=== PATIENT | male | born 1980 | race African-American/Black ===

== ENCOUNTER 2016-06-11 11:53 | Emergency (ER) | payer MEDICARE, MEDICAID ==
[~2016-06-11 11:53] MED LIST: AMLO1TAB12 PO; BUPR100T6 PO; HALO2TAB PO; OMEP40CA2 PO
[2016-06-11 13:12] VITALS: BP 136/74
--- NOTE | 2016-06-11 13:21 | PHYS DOC ---
Past Medical History Past Medical History: Depression, GERD, Hypertension, Schizophrenia, Other Additional Past Medical Histor: Psychosis Past Surgical History: No Surgical History Alcohol Use: Occasionally Drug Use: Marijuana Adult General Chief Complaint Chief Complaint: LOWER EXTREMITY SWELLING HPI HPI Patient is a 36 year old male with past medical history depression, GERD, hypertension, schizophrenia who presents with or shortly swelling over the last several weeks. He states had this to 3 times a 4 and was given a water pill and a result. He states his medications been changed and now his leg is swollen worse. He also complains about some dyspnea on exertion when he relates greater than 20 feet, or goes up a flight of steps.. He denies any chest pain, orthopnea or PND Review of Systems Review of Systems Constitutional: Denies fever or chills [] Eyes: Denies change in visual acuity, redness, or eye pain [] HENT: Denies nasal congestion or sore throat [] Respiratory: Denies cough or shortness of breath [] Cardiovascular: No additional information not addressed in HPI [] GI: Denies abdominal pain, nausea, vomiting, bloody stools or diarrhea [] : Denies dysuria or hematuria [] Musculoskeletal: Denies back pain or joint pain [] Integument: Denies rash or skin lesions [] Neurologic: Denies headache, focal weakness or sensory changes [] Endocrine: Denies polyuria or polydipsia [] Allergies Allergies Allergies Coded Allergies Type Severity Reaction Last Updated Verified NSAIDS (Non-Steroidal Anti-Inflamma Allergy Mild "told not to take" for GI concerns 09/23/13 Yes shellfish derived Allergy Unknown 08/14/14 No Physical Exam Physical Exam Constitutional: Well developed, morbidly obese, no acute distress, non-toxic appearance. [] HENT: Normocephalic, atraumatic, bilateral external ears normal, oropharynx moist, no oral exudates, nose normal. [] Eyes: PERRLA, EOMI, conjunctiva normal, no discharge. [] Neck: Normal range of motion, no tenderness, supple, no stridor. [] Cardiovascular:Heart rate regular rhythm, no murmur [] Lungs & Thorax: Bilateral breath sounds clear to auscultation [] Abdomen: Bowel sounds normal, soft, no tenderness, no masses, no pulsatile masses. [] Skin: Warm, dry, no erythema, no rash. [] Back: No tenderness, no CVA tenderness. [] Extremities: No tenderness, no cyanosis, no clubbing, ROM intact, and plus bilateral lower extremity edema.. [] Neurologic: Alert and oriented X 3, normal motor function, normal sensory function, no focal deficits noted. [] Psychologic: Affect normal, judgement normal, mood normal. [] Current Patient Data Vital Signs Vital Signs Date Time Temp Pulse Resp B/P Pulse Ox O2 Delivery O2 Flow Rate FiO2 06/11/16 13:12 99.1 108 24 136/74 96 Room Air 99.1 Lab Values Laboratory Tests Test 06/11/16 13:55 06/11/16 14:35 White Blood Count 11.9x10^3/uL (4.0-11.0) H Red Blood Count 3.32x10^6/uL (4.30-5.70) L Hemoglobin 11.0g/dL (13.0-17.5) L Hematocrit 32.2% (39.0-53.0) L Mean Corpuscular Volume 97fL (79-100) Mean Corpuscular Hemoglobin 33pg (25-35) Mean Corpuscular Hemoglobin Concent 34g/dL (31-37) Red Cell Distribution Width 15.5% (11.5-14.5) H Platelet Count 137x10^3/uL (140-400) L Neutrophils (%) (Auto) 71% (31-73) Lymphocytes (%) (Auto) 11% (24-48) L Monocytes (%) (Auto) 16% (0-9) H Eosinophils (%) (Auto) 1% (0-3) Basophils (%) (Auto) 1% (0-3) Neutrophils # (Auto) 8.4x10^3uL (1.8-7.7) H Lymphocytes # (Auto) 1.3x10^3/uL (1.0-4.8) Monocytes # (Auto) 1.9x10^3/uL (0.0-1.1) H Eosinophils # (Auto) 0.1x10^3/uL (0.0-0.7) Basophils # (Auto) 0.1x10^3/uL (0.0-0.2) Prothrombin Time 29.5SEC (11.7-14.0) H Prothrombin Time INR 3.0 (0.8-1.1) H D-Dimer (Denia) 0.74ug/mlFEU (0.00-0.50) H Troponin I Quantitative < 0.017ng/mL (0.000-0.055) Laboratory Tests 06/11/16 13:55 EKG EKG EKG shows normal sinus rhythm with a rate of 100, no ST elevations or T-wave inversions appreciated, normal axis, as interpreted by me. Radiology/Procedures Radiology/Procedures [facility] [address] [place] [address] IMAGING REPORT Signed PATIENT: TEO BIGGS ACCOUNT: [id number] : 1980 LOCATION: ER AGE: 36 SEX: M EXAM STATUS: REG ER ORD. PHYSICIAN: AMANDA VALENTE MD REASON: SOA PROCEDURE: PORTABLE CHEST 1V Indication shortness of air. A single view of the chest was obtained. Comparison is made to an examination 02/28/2015. Heart size is at the upper limits of normal. There is no gross congestive heart failure. There is no consolidated pneumonia. Significant pleural fluid is not seen. There is no pneumothorax. The bony structures appear grossly intact. IMPRESSION: No acute process is apparent in the chest. DICTATED and SIGNED BY: AGNIESZKA GARCIA MD DATE: 06/11/16 1424 CC: AMANDA VALENTE MD; ABIGAIL STERLING ~ Impressions: Lower extremity swelling Dyspnea on exertion Course & Med Decision Making Course & Med Decision Making Pertinent Labs and Imaging studies reviewed. (See chart for details) Patient was evaluated and has labs pending at this time. EKG chest x-ray nonacute. Patient is being checked out to Dr. Lee for final disposition. Dragon Disclaimer Dragon Disclaimer This electronic medical record was generated, in whole or in part, using a voice recognition dictation system. Departure Departure Referrals: ABIGAIL STERLING (PCP) AMANDA VALENTE MD Jun 11, 2016 13:21
[2016-06-11 14:09] LABS: BASO # 0.1 x10^3/uL (0.0-0.2); BASO % 1 % (0-3); EOS % 1 % (0-3); HEMATOCRIT 32.2 % (39.0-53.0); LYMPH # 1.3 x10^3/uL (1.0-4.8); LYMPH % 11 % (24-48); MEAN CORPUSCULAR HEMOGLOBIN 33 pg (25-35); MEAN CORPUSCULAR HGB CONC 34 g/dL (31-37); MEAN CORPUSCULAR VOLUME 97 fL (79-100); MONO % 16 % (0-9); NEUT % 71 % (31-73); PLATELET COUNT 137 x10^3/uL (140-400); RED BLOOD COUNT 3.32 x10^6/uL (4.30-5.70); RED CELL DISTRIBUTION WIDTH 15.5 % (11.5-14.5); WHITE BLOOD COUNT 11.9 x10^3/uL (4.0-11.0)
--- NOTE | 2016-06-11 14:28 | RAD ---
Indication shortness of air. A single view of the chest was obtained. Comparison is made to an examination 02/28/2015. Heart size is at the upper limits of normal. There is no gross congestive heart failure. There is no consolidated pneumonia. Significant pleural fluid is not seen. There is no pneumothorax. The bony structures appear grossly intact. IMPRESSION: No acute process is apparent in the chest.
[2016-06-11 15:01] LABS: PROTHROMBIN TIME PATIENT 29.5 SEC (11.7-14.0)
[2016-06-11 15:11] LABS: CKMB INDEX 0.6 % (0-4); CKMB MASS 3.5 ng/mL (0.0-3.6)
[2016-06-11 15:31] LABS: CALCIUM 9.4 mg/dL (8.5-10.1); GFR 101.2; POTASSIUM 4.1 mmol/L (3.5-5.1)
[2016-06-11 15:35] LABS: MAGNESIUM 1.7 mg/dL (1.8-2.4); TOTAL BILIRUBIN 1.6 mg/dL (0.2-1.0); TOTAL PROTEIN 8.7 g/dL (6.4-8.2)
[2016-06-11] MEDS ORDERED: IOHEXOL 300 MG/ML 75 ML VIAL IV ONE (16:00)
[2016-06-11] MEDS ORDERED: CONTRAST GIVEN MC PRN (16:00)
--- NOTE | 2016-06-11 16:01 | EKG ---
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
--- NOTE | 2016-06-11 16:52 | RAD ---
Right leg venous Doppler study: Clinical indications: Right leg swelling and pain. Elevated d-dimer. Findings: Duplex sonography (including bose scale evaluation and color flow and waveform spectral analysis) of the proximal aspect of the greater saphenous vein and proximal aspect of the profunda femoral vein and the entire length of the common femoral and superficial femoral and popliteal veins and the tibioperoneal trunk and the proximal aspect of the posterior tibial and peroneal veins of the right leg was performed. Normal compressibility, augmentation of color Doppler flow after calf compression, and respiratory variation of Doppler flow is seen. Thus, there are no sonographic findings of deep venous thrombosis within these veins. Impression: There are no sonographic findings of deep venous thrombosis within the veins discussed above of the right lower extremity. Left leg venous Doppler study: Clinical indications: Left leg swelling and pain. Elevated d-dimer. Findings: Duplex sonography (including bose scale evaluation and color flow and waveform spectral analysis) of the proximal aspect of the greater saphenous vein and the proximal aspect of the profunda femoral vein and the entire length of the common femoral and superficial femoral and popliteal veins and the tibioperoneal trunk and the proximal aspect of the posterior tibial and peroneal veins of the left leg was performed. Normal compressibility, augmentation of color Doppler flow after calf compression, and respiratory variation of Doppler flow is seen. Thus, there are no sonographic findings of deep venous thrombosis within these veins. Impression: There are no sonographic findings of deep venous thrombosis within the veins discussed above of the left lower extremity.
--- NOTE | 2016-06-11 17:54 | RAD ---
PROCEDURE CT angiogram of the chest intravenous contrast. HISTORY Shortness of air in elevated D-dimer. Lower extremity swelling. COMPARISON None. TECHNIQUE After administration of intravenous contrast, 75 mL Omnipaque 300 , CT pulmonary angiogram was performed. Axial 2D reconstructions were obtained. Coronal 3D MIPS were obtained. Exposure: One or more of the following individualized dose reduction techniques were utilized for this examination: 1. Automated exposure control. 2. Adjustment of the mA and/or kV according to patient size. 3. Use of iterative reconstruction technique. FINDINGS There is examination is nondiagnostic for detection of pulmonary embolism as there is essentially no opacification of the pulmonary arteries. There is essentially no opacification of the thoracic aorta; consequently, evaluation for aortic dissection is limited. No pneumothorax or pleural effusion is seen. No acute airspace disease is identified. Heart and pericardium are unremarkable. Trachea and mainstem bronchi appear patent. Small hiatal hernia is seen. Fatty liver disease is present. IMPRESSION 1. Examination is nondiagnostic for evaluation of pulmonary embolism. 2. No acute abnormality identified in the chest. Electronically signed by: Leonel Ramachandran MD (Jun 11, 2016 17:53:03)
[2016-06-11] MEDS ORDERED: MAGN400T3 PO (18:21)
[2016-06-11] MEDS ORDERED: FURO-69 PO (18:21)
== END 2016-06-11 18:38 | disposition left against medical advice (07) ==
LOC: ER 11:53
DX: M79.89 Other specified soft tissue disorders (principal); I10 Essential (primary) hypertension; F12.10 Cannabis abuse, uncomplicated; Z88.6 Allergy status to analgesic agent; Z91.013 Allergy to seafood
CPT/HCPCS: 36415; 71010; 71275; 80048; 80076; 82553; 83735; 83880; 84443; 84484; 85027; 85379; 85610; 93005; 93970; 99285; Q9967

== ENCOUNTER 2016-08-24 11:22 | Inpatient (IN) | payer MEDICARE, MEDICAID ==
[~2016-08-24] VITALS: Ht 177.8 cm; Wt 186.4 kg
[~2016-08-24 11:22] MED LIST changes: +FURO-69 PO; +MAGN400T3 PO
[2016-08-24] MEDS ORDERED: IPRATRPIUM/ALBUTEROL 0.5/2.5MG 3 ML NEBU. ONE (13:06)
[2016-08-24] MEDS ORDERED: ALBUTEROL SULFATE 2.5 MG/3 ML NEBU. ONE (13:06)
[2016-08-24 13:14] LABS: BASO # 0.2 x10^3/uL (0.0-0.2); BASO % 1 % (0-3); EOS % 3 % (0-3); HEMATOCRIT 24.8 % (39.0-53.0); LYMPH # 1.5 x10^3/uL (1.0-4.8); LYMPH % 10 % (24-48); MEAN CORPUSCULAR HEMOGLOBIN 32 pg (25-35); MEAN CORPUSCULAR HGB CONC 32 g/dL (31-37); MEAN CORPUSCULAR VOLUME 100 fL (79-100); MONO % 14 % (0-9); NEUT % 71 % (31-73); PLATELET COUNT 229 x10^3/uL (140-400); RED BLOOD COUNT 2.49 x10^6/uL (4.30-5.70); RED CELL DISTRIBUTION WIDTH 16.6 % (11.5-14.5); WHITE BLOOD COUNT 14.3 x10^3/uL (4.0-11.0)
--- NOTE | 2016-08-24 13:17 | RAD ---
Portable chest, 08/24/2016: History: Cough, shortness of breath Comparison is made to a study from 06/11/2016. The heart is at the upper limits of normal in size. There is minimal streaky atelectasis/infiltrate in the left suprahilar region. The lungs are otherwise clear. There is no evidence of pleural fluid. IMPRESSION: Minimal streaky left suprahilar atelectasis/infiltrate.
[2016-08-24 13:24] LABS: CALCIUM 8.8 mg/dL (8.5-10.1); CREATININE 1.8 mg/dL (0.7-1.3); GFR 51.4; POTASSIUM 4.1 mmol/L (3.5-5.1)
[2016-08-24] MEDS ORDERED: IPRATRPIUM/ALBUTEROL 0.5/2.5MG 3 ML NEBU. NEB ONE (13:30)
[2016-08-24 13:32] LABS: ALBUMIN 2.2 g/dL (3.4-5.0); ALBUMIN/GLOBULIN RATIO 0.4 (1.0-1.7); TOTAL BILIRUBIN 1.9 mg/dL (0.2-1.0); TOTAL PROTEIN 8.2 g/dL (6.4-8.2)
[2016-08-24 13:36] LABS: OBC FLU VALID
[2016-08-24 13:40] LABS: CKMB INDEX 1.4 % (0-4); CKMB MASS 2.4 ng/mL (0.0-3.6)
[2016-08-24 13:48] LABS: NEG OBC FOB NEG; POS OBC FOB POS
--- NOTE | 2016-08-24 14:43 | EKG ---
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
[2016-08-24] MEDS ORDERED: LEVOFLOXACIN PER PHARMACY MC PRN (15:30)
[2016-08-24] MEDS ORDERED: ONDANSETRON PF 4 MG/2 ML VIAL. IV PRN (15:30)
[2016-08-24] MEDS ORDERED: FENTANYL PF 100 MCG/2 ML VIAL. IV PRN (15:30)
--- NOTE | 2016-08-24 15:34 | PHYS DOC ---
Past Medical History Past Medical History: Depression, GERD, High Cholesterol, Hypertension, Schizophrenia, Other Additional Past Medical Histor: Psychosis Past Surgical History: No Surgical History Additional Information: 1 PACK A DAY Alcohol Use: Heavy Additional Information: DAILY ETOH, 6 PACK A DAY Drug Use: Marijuana Adult General Chief Complaint Chief Complaint: SHORTNESS OF BREATH HPI HPI Patient is a 36 year old female who presents with complaint of shortness of breath. Patient states his symptoms have been worsening over the past 2-3 days. Patient states he is having worsening dyspnea on exertion and has been having dry cough. Patient denies any fevers. Patient states that he has not been having any chest pain or abdominal pain. Patient does admit to worsening swelling in the lower extremities and along his belly. The patient also states that he has been having blood present in his stools. Patient states that the blood is present when he cleans himself after having a bowel movement. Patient denies any known history of peptic ulcer disease. Patient has not taken any medications to help with his symptoms. Review of Systems Review of Systems Constitutional: Denies fever or chills [] Eyes: Denies change in visual acuity, redness, or eye pain [] HENT: Denies nasal congestion or sore throat [] Respiratory: Shortness breath, cough [] Cardiovascular: Edema, denies chest pain [] GI: Place stools, denies abdominal pain, nausea, vomiting, or diarrhea [] : Denies dysuria or hematuria [] Musculoskeletal: Denies back pain or joint pain [] Integument: Denies rash or skin lesions [] Neurologic: Denies headache, focal weakness or sensory changes [] Current Medications Current Medications Current Medications Medications (Trade) Dose Ordered Sig/Jarrett Start Time Stop Time Status Last Admin Dose Admin Albuterol Sulfate (Ventolin Neb Soln) 2.5 mg STK-MED ONCE 08/24/16 13:06 08/24/16 13:07 DC Albuterol/ Ipratropium (Duoneb) 3 ml STK-MED ONCE 08/24/16 13:06 08/24/16 13:07 DC Allergies Allergies Allergies Coded Allergies Type Severity Reaction Last Updated Verified NSAIDS (Non-Steroidal Anti-Inflamma Allergy Mild "told not to take" for GI concerns 09/23/13 Yes shellfish derived Allergy Unknown 08/14/14 No Physical Exam Physical Exam Constitutional: Alert, obese, afebrile, appears in mild to moderate respiratory distress. [] HENT: Normocephalic, atraumatic, bilateral external ears normal, oropharynx moist, no oral exudates, nose normal. [] Eyes: PERRLA, EOMI, conjunctiva normal, no discharge. [] Neck: Normal range of motion, no tenderness, supple, no stridor. [] Cardiovascular:Heart rate regular rhythm, no murmur [] Lungs & Thorax: Mild to moderate restriction of air movement bilaterally, faint expiratory wheezes, rales in left lower lobe [] Abdomen: Bowel sounds normal, soft, anasarca present, nontender to palpation, no masses, no pulsatile masses. Rectal: Perianal abrasion present, no visualized hemorrhoids, yellow stool present with no visualized blood mixed with stool [] Skin: Warm, dry, no erythema, no rash. [] Back: No tenderness, no CVA tenderness. [] Extremities: No tenderness, no cyanosis, no clubbing, ROM intact, 3+ pitting edema in the bilateral lower extremities [] Neurologic: Alert and oriented X 3, normal motor function, normal sensory function, no focal deficits noted. [] Current Patient Data Vital Signs Vital Signs Date Time Temp Pulse Resp B/P Pulse Ox O2 Delivery O2 Flow Rate FiO2 08/24/16 13:17 96 Nasal Cannula 2.0 08/24/16 11:35 98.6 102 25 157/71 98.6 Lab Values Laboratory Tests Test 08/24/16 11:55 08/24/16 13:09 08/24/16 13:35 White Blood Count 14.3x10^3/uL (4.0-11.0) H Red Blood Count 2.49x10^6/uL (4.30-5.70) L Hemoglobin 8.0g/dL (13.0-17.5) L Hematocrit 24.8% (39.0-53.0) L Mean Corpuscular Volume 100fL (79-100) Mean Corpuscular Hemoglobin 32pg (25-35) Mean Corpuscular Hemoglobin Concent 32g/dL (31-37) Red Cell Distribution Width 16.6% (11.5-14.5) H Platelet Count 229x10^3/uL (140-400) Neutrophils (%) (Auto) 71% (31-73) Lymphocytes (%) (Auto) 10% (24-48) L Monocytes (%) (Auto) 14% (0-9) H Eosinophils (%) (Auto) 3% (0-3) Basophils (%) (Auto) 1% (0-3) Neutrophils # (Auto) 10.2x10^3uL (1.8-7.7) H Lymphocytes # (Auto) 1.5x10^3/uL (1.0-4.8) Monocytes # (Auto) 2.0x10^3/uL (0.0-1.1) H Eosinophils # (Auto) 0.4x10^3/uL (0.0-0.7) Basophils # (Auto) 0.2x10^3/uL (0.0-0.2) Sodium Level 137mmol/L (136-145) Potassium Level 4.1mmol/L (3.5-5.1) Chloride Level 101mmol/L (98-107) Carbon Dioxide Level 21mmol/L (21-32) Anion Gap 15 (6-14) H Blood Urea Nitrogen 19mg/dL (8-26) Creatinine 1.8mg/dL (0.7-1.3) H Estimated GFR (Cockcroft-Gault) 51.4 BUN/Creatinine Ratio 11 (6-20) Glucose Level 132mg/dL (70-99) H Calcium Level 8.8mg/dL (8.5-10.1) Total Bilirubin 1.9mg/dL (0.2-1.0) H Aspartate Amino Transferase (AST) 55U/L (15-37) H Alanine Aminotransferase (ALT) 23U/L (16-63) Alkaline Phosphatase 376U/L (46-116) H Creatine Kinase 174U/L (39-308) Creatine Kinase MB (Mass) 2.4ng/mL (0.0-3.6) Creatine Kinase MB Relative Index 1.4% (0-4) Troponin I Quantitative < 0.017ng/mL (0.000-0.055) HF-Qcq-G-Type Natriuretic Peptide 1894pg/mL (0-124) H Total Protein 8.2g/dL (6.4-8.2) Albumin 2.2g/dL (3.4-5.0) L Albumin/Globulin Ratio 0.4 (1.0-1.7) L Influenza Type A Antigen Negative (NEGATIVE) Influenza Type B Antigen Negative (NEGATIVE) Stool Occult Blood Positive (NEG) Laboratory Tests 08/24/16 11:55 Laboratory Tests 08/24/16 11:55 EKG EKG Interpreted by me: Heart rate 93, sinus rhythm, normal intervals, normal axis, no acute ST/T-wave abnormalities present [] Radiology/Procedures Radiology/Procedures [facility] [address] [place] [address] IMAGING REPORT Signed PATIENT: TEO BIGGS ACCOUNT: [id number] : 1980 LOCATION: ER AGE: 36 SEX: M EXAM STATUS: REG ER ORD. PHYSICIAN: WICHO GARCIA MD REASON: shortness of breath, cough PROCEDURE: PORTABLE CHEST 1V Portable chest, 08/24/2016: History: Cough, shortness of breath Comparison is made to a study from 06/11/2016. The heart is at the upper limits of normal in size. There is minimal streaky atelectasis/infiltrate in the left suprahilar region. The lungs are otherwise clear. There is no evidence of pleural fluid. IMPRESSION: Minimal streaky left suprahilar atelectasis/infiltrate. DICTATED and SIGNED BY: STEVEN GONZALEZ MD DATE: 08/24/16 1313 CC: ABIGAIL STERLING; WICHO GARCIA MD ~ [] Course & Med Decision Making Course & Med Decision Making Pertinent Labs and Imaging studies reviewed. (See chart for details) Patient was given DuoNeb breathing treatment in the emergency department. Patient found to have left lower lobe infiltrate consistent with acute pneumonia. Patient had excoriation at the perianal surface with scant amount of blood which may have affected the patient's guaiac stool test. Patient does display evidence of anemia on his CBC. The patient will need admission to the hospital for further evaluation and treatment. I spoke with Dr. Robins who accepted care patient in hospital. Patient started on IV Levaquin. Dragon Disclaimer Dragon Disclaimer This electronic medical record was generated, in whole or in part, using a voice recognition dictation system. Departure Departure Impression: Primary Impression: Community acquired pneumonia Additional Impressions: Anemia Congestive heart failure Severe protein-calorie malnutrition Anasarca Disposition: 09 ADMITTED INPATIENT Admitting Physician: Jazzy Robins Condition: GUARDED Referrals: ABIGAIL STERLING (PCP) Problem Qualifiers Additional Impressions: Anemia Anemia type: unspecified type Qualified Code: D64.9 - Anemia, unspecified Congestive heart failure Congestive heart failure type: unspecified congestive heart failure type Congestive heart failure chronicity: unspecified congestive heart failure chronicity Qualified Code: I50.9 - Heart failure, unspecified WICHO GARCIA MD Aug 24, 2016 15:34
[2016-08-24] MEDS: IPRATRPIUM/ALBUTEROL 0.5/2.5MG 3 ML NEBU. NEB SCH ×2 (16:00→18:33)
--- NOTE | 2016-08-24 16:06 | ACF ---
Admission Forms Criteria PNEUMONIA, COMMUNITY ACQUIRED Clinical Indications for Admission to Inpatient Care ( Place 'X' for any and all applicable criteria): Admission is indicated for ANY ONE of the following (1)(2)(3): [ ]I. Hypoxemia indicated by ANY ONE of the following: [ ]a) Oxygen saturation less than 90% while breathing room air [ ]b) PO2 less than 60 mm Hg (8.0 kPa) while breathing room air [ ]c) Chronic lung disease with significant deterioration from baseline oxygenation [X]II. Appropriate diagnostic testing and treatment unavailable in outpatient or recovery facility (eg,testing or infection control measures unavailable(10) [ ]III. Moderate-risk or high-risk category patients (Pneumonia Severity Index (PSI) class IV or V, or CURB-65 score of 3 or greater). [ ]IV. Outpatient treatment failure as indicated by ANY ONE of the following(9) : [ ]a) Failure to respond to antibiotic (eg, resistant organism) [ ]b) Clinically significant adverse effects from medication (eg, vomiting) [ ]c) Complications of pneumonia (eg, empyema, bacteremia) [ ]d) Significant worsening of comorbid cond necessitating inpatient care (eg, chronic heart failure) [ ]V. Intermediate-risk category patients (eg, PSI class III or CURB-65 score 2) who do not improve with initial therapy and observation. [ ]. Immunocompromised patients (eg, AIDS, chronic steroid use) at moderate or high risk based on clinical evaluation. [ ]VII. Complicated pleural effusions (eg, exudative, loculated) [ ]VIII.Hemodynamic instability [ ] IX. Altered mental status that is severe or persistent. [ ]X. Dehydration that is severe or persistent. [ ]XI. Bacteremia [ ]XII. Respiratory finding (eg. tachypnea) that do not respond to outpatient or observation care treatment Extended stay beyond goal length of stay may be needed for (20) [ ]a) Unclear diagnosis [ ]b) Pleural disease [ ]c) Severe pneumonia or treatment failure (25 [ ]d) Respiratory failure (anticipate invasive or noninvasive ventilatory support) [ ]e) Abnormal serum electrolytes (serum Na concentration less than 135 mEq/L (mmol/L) (32)(33) [ ]f) Clinically significant comorbid illness (eg, heart failure, atrial fibrillation with rapid heart rate, alcohol withdrawal, renal insufficiency)(34)(35) [ ]g) Comorbid acute exacerbation of COPD(36) [ ]h) Concomitant diagnosis of malignancy that may be associated with malnutrition, immunologic impairment, or bronchial obstruction. [ ]i) Concomitant altered mental status [ ]j) Culture-identified Gram-negative or antibiotic-resistant organism (eg, Pseudomonas, methicillin-resistant Staphylococcus aureus)(30) [ ]k) Healthcare-associated pneumonia The original [email or web address] content created by [employer] has been revised. The portions of the content which have been revised are identified through the use of italic text or in bold, and [facility] has neither reviewed nor approved the modified material. All other unmodified content is copyright [employer] Please see references footnoted in the original [facility] edition 2016 Admission Criteria Met?: Yes LETITIA STEPHENSON Aug 24, 2016 16:06
[2016-08-24 16:13] VITALS: BP 120/64
[2016-08-24] MEDS ORDERED: NICOTINE POLACRILEX 2MG GUM PACKAGE of 12. BC PRN (16:15)
[2016-08-24] MEDS ORDERED: PANTOPRAZOLE IV PUSH 40 MG VIAL. IVP ONE (16:15)
--- NOTE | 2016-08-24 16:40 | PDOC ---
Provider Note Provider Note DICTATED SOLEDAD SNEED MD Aug 24, 2016 16:40
--- NOTE | 2016-08-24 16:41 | PDOC1 ---
History and Physical Date of Admission Date of Admission DATE: 08/24/16 TIME: 16:27 Identification/Chief Complaint Chief Complaint cough, dyspnea Source Source: Chart review, Patient History of Present Illness History of Present Illness Mr. Mancini, is a 36 year old male, admit with acute shortness of breath. HE has been living with his mom for a short period of time, as he had not felt well. dyspnea and cough past 3 days, with dyspnea on exertion and dry cough. Pt has depression or schizotypal, takes Haldol HS, has otherwise been stable he complains of LE edema to his feet, + tobacco and EtOH use Past Medical History Cardiovascular: HTN, Other (on Lasix as outpatient, maybe CHF) GI: No pertinent hx Heme/Onc: No pertinent hx Psych: Depression, Psychosis, Schizophrenia ENT: No pertinent hx Renal/: No pertinent hx Dermatology: No pertinent hx Family History Family History: No Significant Social History Smoke: 1 pack per day ALCOHOL: heavy Current Problem List Problem List Problems Medical Problems: (1) Anasarca Status: Acute (2) Anemia Status: Acute (3) Community acquired pneumonia Status: Acute (4) Congestive heart failure Status: Acute (5) Severe protein-calorie malnutrition Status: Acute Problems: Current Medications Current Medications Current Medications Albuterol/ Ipratropium (Duoneb) 6 ml 1X ONCE NEB Last administered on t 13:11; Start 08/24/16 at 13:30; Stop 08/24/16 at 13:31; Status DC Albuterol Sulfate (Ventolin Neb Soln) 2.5 mg STK-MED ONCE .ROUTE ; Start at 13:06; Stop 08/24/16 at 13:07; Status DC Albuterol/ Ipratropium (Duoneb) 3 ml STK-MED ONCE .ROUTE ; Start 08/24/16 at 13: 06; Stop 08/24/16 at 13:07; Status DC Ondansetron HCl (Zofran) 4 mg PRN Q8HRS PRN IV NAUSEA/VOMITING; Start 08/24/16 at 15:30; Stop 08/25/16 at 15:29 Fentanyl Citrate 50 mcg 50 mcg PRN Q2HR PRN IV PAIN; Start 08/24/16 at 15:30; Stop 08/25/16 at 15:29 Sodium Chloride (Iv Sodium Chloride 0.9% 1000ml Bag) 1,000 ml @ 100 mls/hr Q10H IV ; Start 08/24/16 at 16:00; Stop 08/25/16 at 15:59 Albuterol/ Ipratropium (Duoneb) 3 ml RTQID NEB ; Start 08/24/16 at 16:00; Stop at 15:59 Levofloxacin/ Dextrose 1 each 1 each PRN DAILY PRN MC SEE COMMENTS; Start at 15:30 Levofloxacin/ Dextrose (LEVAQUIN 500mg PREMIX) 100 ml @ 100 mls/hr Q24H IV ; Start 08/24/16 at 16:00 Nicotine (Nicoderm Cq 21mg) 1 patch PRN DAILY PRN TD SMOKING CESSATION; Start 08/24/16 at 16:15 Nicotine Polacrilex (Nicorette Gum) 1 each PRN Q1HR PRN BC SMOKING CESSATION; Start 08/24/16 at 16:15 Pantoprazole Sodium (Protonix Vial) 40 mg 1X ONCE IVP ; Start 08/24/16 at 16:15 ; Stop 08/24/16 at 16:17; Status DC Pantoprazole Sodium (Protonix) 40 mg BID PO ; Start 08/24/16 at 21:00 Bupropion HCl (Wellbutrin) 100 mg BID PO ; Start 08/24/16 at 21:00 Furosemide (Lasix) 20 mg DAILY PO ; Start 08/24/16 at 17:00 Haloperidol (Haldol) 2 mg HS PO ; Start 08/24/16 at 21:00 Magnesium Oxide (Magnesium Oxide) 400 mg DAILY PO ; Start 08/25/16 at 09:00 Non-Formulary Medication 40 mg DAILY PO ; Start 08/25/16 at 09:00; Status UNV Active Scripts Active Lasix (Furosemide) 20 Mg Tablet 1 Tab PO DAILY Magnesium Oxide 400 Mg Tablet 1 Tab PO DAILY Reported Wellbutrin (Bupropion Hcl) 100 Mg Tablet Unknown Dose PO BID Haloperidol 2 Mg Tablet Unknown Dose PO Prilosec (Omeprazole) 40 Mg Capsule.dr 40 Mg PO DAILY Exforge 5-160 Mg Tablet (Amlodipine/Valsartan) 1 Each Tablet Unknown Dose PO Allergies Allergies: Coded Allergies: NSAIDS (Non-Steroidal Anti-Inflamma (Verified Allergy, Mild, "told not to take" for GI concerns, 5/4/14) shellfish derived (Unverified Allergy, Unknown, 08/14/14) ROS General: YES: Fatigue, Malaise, No: Appetite, Chills, Night Sweats, Other PSYCHOLOGICAL ROS: YES: Anxiety, Irritablity, No: Behavioral Disorder, Concentration difficultie, Decreased libido, Depression, Disorientation, Hallucinations, Hostility, Memory difficulties, Mood Swings, Obsessive thoughts, Other, Physical abuse, Sexual abuse, Sleep disturbances, Suicidal ideation Eyes: No Blurry vision, No Decreased vision, No Double vision, No Dry eyes, No Excessive tearing, No Eye Pain, No Itchy Eyes, No Loss of vision, No Other, No Photophobia, No Scotomata, No Uses contacts, No Uses glasses HEENT: No: Epistaxis, Heacaches, Hearing change, Nasal congestion, Nasal discharge, Oral lesions, Other, Sinus pain, Sneezing, Snoring, Sore Throat, Tinnitus, Vertigo, Visual Changes, Vocal changes Respiratory: YES: Cough, SOB with excertion, Tachypnea, No: Hemoptysis, Orthopnea, Other, Pleuritic Pain, Shortness of breath, Stridor, Wheezing Cardiovascular: yes Edema, yes Orthopnea (pickwickian), No Lt Headedness, No Other, No Palpitations, No Paroxysmal Noc. Dyspnea Gastrointestinal: No Abdominal Pain, No Constipation, No Diarrhea, No Hematochezia, No Melena, No Nausea, No Other, No Vomiting Genitourinary: No , No , No , No , No , No , No , No Discharge, No Dysuria, No Flank Pain, No Frequency, No Hematuria, No Incontinence, No Other, No Pain, No Retention, No Urgency Musculoskeletal: Yes Joint Pain, Yes Joint Stiffness, No Gait Disturbance, No Joint Swelling, No Muscle Pain, No Muscular Weakness , No Other, No Pain In:, No Swelling In: Neurological: No Behavorial Changes, No Bowel/Bladder ControlChng, No Confusion , No Dizziness, No Gait Disturbance, No Headaches, No Impaired Coord/balance, No Memory Loss, No Numbness/Tingling, No Other, No Seizures, No Speech Problems , No Tremors, No Visual Changes, No Weakness Skin: No Acne, No Dry Skin, No Eczema, No Hair Changes, No Lumps, No Mole Changes, No Mottling, No Nail Changes, No Other, No Pruritus, No Rash, No Skin Lesion Changes Physical Exam General: Alert, Oriented X3, mild distress, moderate distress HEENT: EOMI, Mucous membr. moist/pink Lungs: Other (rales and wheeze, limited vol for size and age) Heart: S1S2, other Abdomen: Normal bowel sounds, Soft (very obese) Rectal Exam: other (heme pos per ER) Extremities: No cyanosis, Other (2+ Le edema to feet and skin thickening to L legs) Neuro: Normal tone, Sensation intact Psych/Mental Status: Mood NL Vitals Vitals Vital Signs Date Time Temp Pulse Resp B/P Pulse Ox O2 Delivery O2 Flow Rate FiO2 08/24/16 16:13 97.7 95 22 120/64 92 Room Air 97.7 08/24/16 13:17 2.0 Labs Labs Laboratory Tests Test 08/24/16 11:55 08/24/16 13:09 08/24/16 13:35 White Blood Count 14.3x10^3/uL (4.0-11.0) Red Blood Count 2.49x10^6/uL (4.30-5.70) Hemoglobin 8.0g/dL (13.0-17.5) Hematocrit 24.8% (39.0-53.0) Mean Corpuscular Volume 100fL (79-100) Mean Corpuscular Hemoglobin 32pg (25-35) Mean Corpuscular Hemoglobin Concent 32g/dL (31-37) Red Cell Distribution Width 16.6% (11.5-14.5) Platelet Count 229x10^3/uL (140-400) Neutrophils (%) (Auto) 71% (31-73) Lymphocytes (%) (Auto) 10% (24-48) Monocytes (%) (Auto) 14% (0-9) Eosinophils (%) (Auto) 3% (0-3) Basophils (%) (Auto) 1% (0-3) Neutrophils # (Auto) 10.2x10^3uL (1.8-7.7) Lymphocytes # (Auto) 1.5x10^3/uL (1.0-4.8) Monocytes # (Auto) 2.0x10^3/uL (0.0-1.1) Eosinophils # (Auto) 0.4x10^3/uL (0.0-0.7) Basophils # (Auto) 0.2x10^3/uL (0.0-0.2) Sodium Level 137mmol/L (136-145) Potassium Level 4.1mmol/L (3.5-5.1) Chloride Level 101mmol/L (98-107) Carbon Dioxide Level 21mmol/L (21-32) Anion Gap 15 (6-14) Blood Urea Nitrogen 19mg/dL (8-26) Creatinine 1.8mg/dL (0.7-1.3) Estimated GFR (Cockcroft-Gault) 51.4 BUN/Creatinine Ratio 11 (6-20) Glucose Level 132mg/dL (70-99) Calcium Level 8.8mg/dL (8.5-10.1) Total Bilirubin 1.9mg/dL (0.2-1.0) Aspartate Amino Transf (AST/SGOT) 55U/L (15-37) Alanine Aminotransferase (ALT/SGPT) 23U/L (16-63) Alkaline Phosphatase 376U/L (46-116) Creatine Kinase 174U/L (39-308) Creatine Kinase MB (Mass) 2.4ng/mL (0.0-3.6) Creatine Kinase MB Relative Index 1.4% (0-4) Troponin I Quantitative < 0.017ng/mL (0.000-0.055) OD-Xrq-W-Type Natriuretic Peptide 1894pg/mL (0-124) Total Protein 8.2g/dL (6.4-8.2) Albumin 2.2g/dL (3.4-5.0) Albumin/Globulin Ratio 0.4 (1.0-1.7) Influenza Type A Antigen Negative (NEGATIVE) Influenza Type B Antigen Negative (NEGATIVE) Stool Occult Blood Positive (NEG) Laboratory Tests Test 08/24/16 11:55 08/24/16 13:09 08/24/16 13:35 White Blood Count 14.3x10^3/uL (4.0-11.0) Red Blood Count 2.49x10^6/uL (4.30-5.70) Hemoglobin 8.0g/dL (13.0-17.5) Hematocrit 24.8% (39.0-53.0) Mean Corpuscular Volume 100fL (79-100) Mean Corpuscular Hemoglobin 32pg (25-35) Mean Corpuscular Hemoglobin Concent 32g/dL (31-37) Red Cell Distribution Width 16.6% (11.5-14.5) Platelet Count 229x10^3/uL (140-400) Neutrophils (%) (Auto) 71% (31-73) Lymphocytes (%) (Auto) 10% (24-48) Monocytes (%) (Auto) 14% (0-9) Eosinophils (%) (Auto) 3% (0-3) Basophils (%) (Auto) 1% (0-3) Neutrophils # (Auto) 10.2x10^3uL (1.8-7.7) Lymphocytes # (Auto) 1.5x10^3/uL (1.0-4.8) Monocytes # (Auto) 2.0x10^3/uL (0.0-1.1) Eosinophils # (Auto) 0.4x10^3/uL (0.0-0.7) Basophils # (Auto) 0.2x10^3/uL (0.0-0.2) Sodium Level 137mmol/L (136-145) Potassium Level 4.1mmol/L (3.5-5.1) Chloride Level 101mmol/L (98-107) Carbon Dioxide Level 21mmol/L (21-32) Anion Gap 15 (6-14) Blood Urea Nitrogen 19mg/dL (8-26) Creatinine 1.8mg/dL (0.7-1.3) Estimated GFR (Cockcroft-Gault) 51.4 BUN/Creatinine Ratio 11 (6-20) Glucose Level 132mg/dL (70-99) Calcium Level 8.8mg/dL (8.5-10.1) Total Bilirubin 1.9mg/dL (0.2-1.0) Aspartate Amino Transf (AST/SGOT) 55U/L (15-37) Alanine Aminotransferase (ALT/SGPT) 23U/L (16-63) Alkaline Phosphatase 376U/L (46-116) Creatine Kinase 174U/L (39-308) Creatine Kinase MB (Mass) 2.4ng/mL (0.0-3.6) Creatine Kinase MB Relative Index 1.4% (0-4) Troponin I Quantitative < 0.017ng/mL (0.000-0.055) MF-Ayx-J-Type Natriuretic Peptide 1894pg/mL (0-124) Total Protein 8.2g/dL (6.4-8.2) Albumin 2.2g/dL (3.4-5.0) Albumin/Globulin Ratio 0.4 (1.0-1.7) Influenza Type A Antigen Negative (NEGATIVE) Influenza Type B Antigen Negative (NEGATIVE) Stool Occult Blood Positive (NEG) VTE Prophylaxis Ordered VTE Prophylaxis Devices: No VTE Pharmacological Prophylaxi: Yes Assessment/Plan Assessment/Plan dyspnea, tachypnea, wheeze, rales with ongoing tobaccoism, diffuse markings on CXR, PNA coverage started, could all be cardiac SIRS Acute exacerbation of diastolic CHF, consider cor pulmonale pickwickian, consider obesity hypovent tobaccoism morbid Obesity, BMI 59 w/ mod/severe malnutrition CKD 3 anemia, heme + stool, repeat HGb, IV PPI and PO BId, consult GI to follow anxiety, depression, schizotypal admitted RESHMA FRANKEL MD Aug 24, 2016 16:40
[2016-08-24] MEDS: FUROSEMIDE 20 MG TABLET PO SCH (17:00)
[2016-08-24] MEDS ORDERED: FUROSEMIDE 100 MG/10 ML VIAL. IVP ONE (17:00)
[2016-08-24] MEDS: NICOTINE 21MG PATCH. TD PRN (17:56)
[2016-08-24] MEDS: IV NORMAL SALINE 1000ML BAG 1,000 ML IV SCH (17:57)
--- NOTE | 2016-08-24 18:24 | CONS ---
DATE OF CONSULTATION: 08/24/2016 ATTENDING PHYSICIAN: Dr. Robins. REASON FOR CONSULTATION: Dyspnea, abnormal chest x-ray, and lower extremity edema. HISTORY OF PRESENT ILLNESS: The patient is a 36-year-old morbidly obese male with a BMI of 59. The patient presented to the hospital with complaint of progressive dyspnea for the past few months. The patient has gained approximately 80 pounds in the last 6 months. He has lower extremity edema along with generalized anasarca. His chest x-ray was reviewed and is consistent with mild interstitial edema. The patient has a mild cough, which has been nonproductive. No fever, no chills. No chest pains. No nausea, vomiting, or diarrhea. Consultation requested for further evaluation and management. His last CT chest from May had no pulmonary embolism. Venous Dopplers were negative as well. PAST MEDICAL HISTORY: History of depression, GERD, dyslipidemia, hypertension, schizophrenia, history of tobaccoism since age 12, history of psychosis, history of anasarca. PAST SURGICAL HISTORY: No recent surgery. ALLERGIES: NONSTEROIDALS. MEDICATIONS: His current medications were reviewed as listed in the [facility]. REVIEW OF SYSTEMS: Twelve-point systems obtained. Pertinent positives discussed in history of present illness, otherwise noncontributory. All systems that were negative were reviewed as well. SOCIAL HISTORY: Smoker since age 12, quit few weeks ago. PHYSICAL EXAMINATION: VITAL SIGNS: His blood pressure 120/64, afebrile, pulse ox 92% on room air. NECK: Supple. LUNGS: Diminished breath sounds. CARDIOVASCULAR: Regular rate and rhythm. ABDOMEN: Soft, distended. EXTREMITIES: With bilateral pitting edema. LABORATORY DATA: Reviewed. White cell count 14.3, hemoglobin is 8.0 and platelets are 229. Serology negative for influenza. BUN is 19, creatinine 1.8. IMPRESSION: 1. Progressive dyspnea with 80-pound weight gain in last 6 months and with mild interstitial infiltrates in a morbidly obese patient with a BMI of 59. Most likely, this is [id number] cor pulmonale. He needs to have an echo to rule out any left ventricular dysfunction. 2. Suspect chronic renal insufficiency. 3. History of tobaccoism, possible underlying chronic obstructive pulmonary disease. 4. Morbid obesity. RECOMMENDATIONS: 1. Continue with diuresis. 2. Echocardiogram. 3. Noncontrast CT chest to assess for parenchymal infiltrates. 4. Weight loss, strongly emphasized. 5. Follow response diuresis. 6. Improve nutritional status. Albumin level is 2.2. 7. Discussed with Dr. Robins. SOLEDAD SNEED MD DR: CHRISTIANO/svitlana JOB#: [id number] / [id number]
[2016-08-24 19:00] VITALS: BP 124/68
[2016-08-24 19:54] LABS: HEMATOCRIT 25.8 % (39.0-53.0); HEMOGLOBIN 8.3 g/dL (13.0-17.5); RED BLOOD COUNT 2.62 x10^6/uL (4.30-5.70); RED CELL DISTRIBUTION WIDTH 16.6 % (11.5-14.5); WHITE BLOOD COUNT 15.3 x10^3/uL (4.0-11.0)
[2016-08-24] MEDS: HALOPERIDOL 2 MG TABLET. PO SCH (20:38)
[2016-08-24] MEDS: PANTOPRAZOLE 40 MG TABLET.DR. PO SCH (20:38)
[2016-08-24] MEDS: buPROPion 100 MG TABLET PO SCH (20:38)
[2016-08-24 23:00] VITALS: BP 120/61
[2016-08-25] MEDS: IV NORMAL SALINE 1000ML BAG 1,000 ML IV SCH ×2 (02:00→12:00)
[2016-08-25 03:13] VITALS: BP 134/72
[2016-08-25 07:00] VITALS: BP 116/65
[2016-08-25 07:17] LABS: CALCIUM 8.9 mg/dL (8.5-10.1); CREATININE 1.8 mg/dL (0.7-1.3); GFR 51.4
[2016-08-25 07:26] LABS: BASO # 0.1 x10^3/uL (0.0-0.2); BASO % 1 % (0-3); EOS % 3 % (0-3); HEMOGLOBIN 7.5 g/dL (13.0-17.5); LYMPH # 1.5 x10^3/uL (1.0-4.8); LYMPH % 11 % (24-48); MEAN CORPUSCULAR HEMOGLOBIN 32 pg (25-35); MEAN CORPUSCULAR HGB CONC 33 g/dL (31-37); MEAN CORPUSCULAR VOLUME 98 fL (79-100); MONO % 12 % (0-9); NEUT % 74 % (31-73); PLATELET COUNT 189 x10^3/uL (140-400); RED BLOOD COUNT 2.34 x10^6/uL (4.30-5.70); RED CELL DISTRIBUTION WIDTH 16.5 % (11.5-14.5); WHITE BLOOD COUNT 14.2 x10^3/uL (4.0-11.0)
[2016-08-25] MEDS: IPRATRPIUM/ALBUTEROL 0.5/2.5MG 3 ML NEBU. NEB SCH ×4 (07:32→19:47)
[2016-08-25] MEDS: MAGNESIUM OXIDE 400 MG TABLET PO SCH (08:19)
[2016-08-25] MEDS: FUROSEMIDE 20 MG TABLET PO SCH (08:19)
[2016-08-25] MEDS: PANTOPRAZOLE 40 MG TABLET.DR. PO SCH ×2 (08:19→20:19)
[2016-08-25] MEDS: buPROPion 100 MG TABLET PO SCH ×2 (08:19→20:19)
--- NOTE | 2016-08-25 08:30 | PDOC2 ---
CONSULT Date of Consult Date of Consult DATE: 08/25/16 TIME: 08:04 Reason for Consult Reason for Consult: Anemia/heme positive stool Referring Physician Referring Physician: Dr. Robins Source Source: Chart review, Patient History of Present Illness Reason for Visit: 36 y/o male admitted with progressive dyspnea/several months. Anemia noted and heme positive stool; we were asked to see. Denies h/o heartburn or dysphagia. Gives h/o "ulcer" by prior EGD here some years ago. Sounds like Dr. Nicolás Meyer performed. Was counseled to avoid NSAIDs, so apparently these felt to be the cause. Currently on PPI daily. No h/o gallstones or pancreatic issues. Was to see liver clinic re: abnormal LFT's in October. No documented liver disease. Smokes. Consumes 6-pk of beer and "pint" on average day. Recently loose stools 2-3x daily, he says with control problems. Occasional blood with stool/in toilet. Question of melena not too long ago. Gaining weight recently (mostly water?)/appetite OK. No nausea or vomiting. Denies any GI family history. No prior colonoscopy. Past Medical History Cardiovascular: HTN, Hyperlipidemia Psych: Depression, Psychosis, Schizophrenia Past Surgical History Past Surgical History None Family History Family History Negative for GI issues. Social History 1 pack per day ALCOHOL: heavy Current Problem List Problem List Problems Medical Problems: (1) Anasarca Status: Acute (2) Anemia Status: Acute (3) Community acquired pneumonia Status: Acute (4) Congestive heart failure Status: Acute (5) Severe protein-calorie malnutrition Status: Acute Current Medications Current Medications Current Medications Albuterol/ Ipratropium (Duoneb) 6 ml 1X ONCE NEB Last administered on t 13:11; Start 08/24/16 at 13:30; Stop 08/24/16 at 13:31; Status DC Albuterol Sulfate (Ventolin Neb Soln) 2.5 mg STK-MED ONCE .ROUTE ; Start at 13:06; Stop 08/24/16 at 13:07; Status DC Albuterol/ Ipratropium (Duoneb) 3 ml STK-MED ONCE .ROUTE ; Start 08/24/16 at 13: 06; Stop 08/24/16 at 13:07; Status DC Ondansetron HCl (Zofran) 4 mg PRN Q8HRS PRN IV NAUSEA/VOMITING; Start 08/24/16 at 15:30; Stop 08/25/16 at 15:29 Fentanyl Citrate 50 mcg 50 mcg PRN Q2HR PRN IV PAIN; Start 08/24/16 at 15:30; Stop 08/25/16 at 15:29 Sodium Chloride (Iv Sodium Chloride 0.9% 1000ml Bag) 1,000 ml @ 100 mls/hr Q10H IV Last administered on 08/24/16 17:57; Start 08/24/16 at 16:00; Stop at 15:59 Albuterol/ Ipratropium (Duoneb) 3 ml RTQID NEB Last administered on 08/25/16 07 :32; Start 08/24/16 at 16:00; Stop 08/25/16 at 15:59 Levofloxacin/ Dextrose 1 each 1 each PRN DAILY PRN MC SEE COMMENTS; Start at 15:30 Levofloxacin/ Dextrose (LEVAQUIN 500mg PREMIX) 100 ml @ 100 mls/hr Q24H IV Last administered on 08/24/16 18:03; Start 08/24/16 at 16:00 Nicotine (Nicoderm Cq 21mg) 1 patch PRN DAILY PRN TD SMOKING CESSATION Last administered on 08/24/16 17:56; Start 08/24/16 at 16:15 Nicotine Polacrilex (Nicorette Gum) 1 each PRN Q1HR PRN BC SMOKING CESSATION; Start 08/24/16 at 16:15 Pantoprazole Sodium (Protonix Vial) 40 mg 1X ONCE IVP Last administered on 08/24 17:57; Start 08/24/16 at 16:15; Stop 08/24/16 at 16:17; Status DC Pantoprazole Sodium (Protonix) 40 mg BID PO Last administered on 08/24/16 20:38 ; Start 08/24/16 at 21:00 Bupropion HCl (Wellbutrin) 100 mg BID PO Last administered on 08/24/16 20:38; Start 08/24/16 at 21:00 Furosemide (Lasix) 20 mg DAILY PO ; Start 08/24/16 at 17:00 Haloperidol (Haldol) 2 mg HS PO Last administered on 08/24/16 20:38; Start 08/24 at 21:00 Magnesium Oxide (Magnesium Oxide) 400 mg DAILY PO ; Start 08/25/16 at 09:00 Non-Formulary Medication 40 mg DAILY PO ; Start 08/25/16 at 09:00; Status UNV Enoxaparin Sodium (Lovenox Per Pharmacy Prophylaxis Dosing) 1 each PRN DAILY PRN MC SEE COMMENTS; Start 08/24/16 at 16:45 Furosemide (Lasix) 80 mg 1X ONCE IVP Last administered on 08/24/16 17:57; Start 08/24/16 at 17:00; Stop 08/24/16 at 17:01; Status DC Enoxaparin Sodium (Lovenox 60mg Syringe) 60 mg Q12HR SQ Last administered on 20:38; Start 08/24/16 at 21:00 Active Scripts Active Lasix (Furosemide) 20 Mg Tablet 1 Tab PO DAILY Magnesium Oxide 400 Mg Tablet 1 Tab PO DAILY Reported Wellbutrin (Bupropion Hcl) 100 Mg Tablet Unknown Dose PO BID Haloperidol 2 Mg Tablet Unknown Dose PO Prilosec (Omeprazole) 40 Mg Capsule.dr 40 Mg PO DAILY Exforge 5-160 Mg Tablet (Amlodipine/Valsartan) 1 Each Tablet Unknown Dose PO Allergies Allergies: Coded Allergies: shellfish derived (Unverified Allergy, Intermediate, 08/25/16) NSAIDS (Non-Steroidal Anti-Inflamma (Verified Allergy, Mild, "told not to take" for GI concerns, 09/23/13) ROS Review of System 10-point review otherwise negative. ENDOCRINE: YES: Skin Changes (LE's) Respiratory: YES: Cough (some production of "yellow" sputum), SOB with excertion Neurological: No Other (sleeping poorly) Physical Exam General: Alert, Oriented X3, Cooperative, No acute distress Lungs: Clear to auscultation (anteriorly) Heart: Regular rate, Normal S1, Normal S2, No murmurs Abdomen: Normal bowel sounds, Soft, No hepatosplenomegaly, No masses, Other ( obese, vague lower abdominal tenderness) Extremities: Other (brawny edema with hyperpigmentation LE's) Neuro: Normal speech, Strength at 5/5 X4 ext, Normal tone, Sensation intact, Cranial nerves 3-12 NL, Reflexes 2+ Psych/Mental Status: Mental status NL, Mood NL MUSCULOSKELETAL: No deformity, No swelling Vitals VITALS Vital Signs Date Time Temp Pulse Resp B/P Pulse Ox O2 Delivery O2 Flow Rate FiO2 08/25/16 07:33 94 Room Air 08/25/16 03:13 98.7 95 20 134/72 98.7 08/24/16 20:00 2.0 Labs Labs Laboratory Tests Test 08/24/16 11:55 08/24/16 13:09 08/24/16 13:35 08/24/16 19:40 White Blood Count 14.3x10^3/uL (4.0-11.0) 15.3x10^3/uL (4.0-11.0) Red Blood Count 2.49x10^6/uL (4.30-5.70) 2.62x10^6/uL (4.30-5.70) Hemoglobin 8.0g/dL (13.0-17.5) 8.3g/dL (13.0-17.5) Hematocrit 24.8% (39.0-53.0) 25.8% (39.0-53.0) Mean Corpuscular Volume 100fL (79-100) 99fL (79-100) Mean Corpuscular Hemoglobin 32pg (25-35) 32pg (25-35) Mean Corpuscular Hemoglobin Concent 32g/dL (31-37) 32g/dL (31-37) Red Cell Distribution Width 16.6% (11.5-14.5) 16.6% (11.5-14.5) Platelet Count 229x10^3/uL (140-400) 218x10^3/uL (140-400) Neutrophils (%) (Auto) 71% (31-73) Lymphocytes (%) (Auto) 10% (24-48) Monocytes (%) (Auto) 14% (0-9) Eosinophils (%) (Auto) 3% (0-3) Basophils (%) (Auto) 1% (0-3) Neutrophils # (Auto) 10.2x10^3uL (1.8-7.7) Lymphocytes # (Auto) 1.5x10^3/uL (1.0-4.8) Monocytes # (Auto) 2.0x10^3/uL (0.0-1.1) Eosinophils # (Auto) 0.4x10^3/uL (0.0-0.7) Basophils # (Auto) 0.2x10^3/uL (0.0-0.2) Sodium Level 137mmol/L (136-145) Potassium Level 4.1mmol/L (3.5-5.1) Chloride Level 101mmol/L (98-107) Carbon Dioxide Level 21mmol/L (21-32) Anion Gap 15 (6-14) Blood Urea Nitrogen 19mg/dL (8-26) Creatinine 1.8mg/dL (0.7-1.3) Estimated GFR (Cockcroft-Gault) 51.4 BUN/Creatinine Ratio 11 (6-20) Glucose Level 132mg/dL (70-99) Calcium Level 8.8mg/dL (8.5-10.1) Total Bilirubin 1.9mg/dL (0.2-1.0) Aspartate Amino Transf (AST/SGOT) 55U/L (15-37) Alanine Aminotransferase (ALT/SGPT) 23U/L (16-63) Alkaline Phosphatase 376U/L (46-116) Creatine Kinase 174U/L (39-308) Creatine Kinase MB (Mass) 2.4ng/mL (0.0-3.6) Creatine Kinase MB Relative Index 1.4% (0-4) Troponin I Quantitative < 0.017ng/mL (0.000-0.055) UM-Ncb-P-Type Natriuretic Peptide 1894pg/mL (0-124) Total Protein 8.2g/dL (6.4-8.2) Albumin 2.2g/dL (3.4-5.0) Albumin/Globulin Ratio 0.4 (1.0-1.7) Influenza Type A Antigen Negative (NEGATIVE) Influenza Type B Antigen Negative (NEGATIVE) Stool Occult Blood Positive (NEG) Test 08/25/16 06:30 White Blood Count 14.2x10^3/uL (4.0-11.0) Red Blood Count 2.34x10^6/uL (4.30-5.70) Hemoglobin 7.5g/dL (13.0-17.5) Hematocrit 23.0% (39.0-53.0) Mean Corpuscular Volume 98fL (79-100) Mean Corpuscular Hemoglobin 32pg (25-35) Mean Corpuscular Hemoglobin Concent 33g/dL (31-37) Red Cell Distribution Width 16.5% (11.5-14.5) Platelet Count 189x10^3/uL (140-400) Neutrophils (%) (Auto) 74% (31-73) Lymphocytes (%) (Auto) 11% (24-48) Monocytes (%) (Auto) 12% (0-9) Eosinophils (%) (Auto) 3% (0-3) Basophils (%) (Auto) 1% (0-3) Neutrophils # (Auto) 10.6x10^3uL (1.8-7.7) Lymphocytes # (Auto) 1.5x10^3/uL (1.0-4.8) Monocytes # (Auto) 1.7x10^3/uL (0.0-1.1) Eosinophils # (Auto) 0.4x10^3/uL (0.0-0.7) Basophils # (Auto) 0.1x10^3/uL (0.0-0.2) Sodium Level 137mmol/L (136-145) Potassium Level 4.0mmol/L (3.5-5.1) Chloride Level 103mmol/L (98-107) Carbon Dioxide Level 23mmol/L (21-32) Anion Gap 11 (6-14) Blood Urea Nitrogen 21mg/dL (8-26) Creatinine 1.8mg/dL (0.7-1.3) Estimated GFR (Cockcroft-Gault) 51.4 Glucose Level 110mg/dL (70-99) Calcium Level 8.9mg/dL (8.5-10.1) Laboratory Tests Test 08/24/16 11:55 08/24/16 13:09 08/24/16 13:35 08/24/16 19:40 White Blood Count 14.3x10^3/uL (4.0-11.0) 15.3x10^3/uL (4.0-11.0) Red Blood Count 2.49x10^6/uL (4.30-5.70) 2.62x10^6/uL (4.30-5.70) Hemoglobin 8.0g/dL (13.0-17.5) 8.3g/dL (13.0-17.5) Hematocrit 24.8% (39.0-53.0) 25.8% (39.0-53.0) Mean Corpuscular Volume 100fL (79-100) 99fL (79-100) Mean Corpuscular Hemoglobin 32pg (25-35) 32pg (25-35) Mean Corpuscular Hemoglobin Concent 32g/dL (31-37) 32g/dL (31-37) Red Cell Distribution Width 16.6% (11.5-14.5) 16.6% (11.5-14.5) Platelet Count 229x10^3/uL (140-400) 218x10^3/uL (140-400) Neutrophils (%) (Auto) 71% (31-73) Lymphocytes (%) (Auto) 10% (24-48) Monocytes (%) (Auto) 14% (0-9) Eosinophils (%) (Auto) 3% (0-3) Basophils (%) (Auto) 1% (0-3) Neutrophils # (Auto) 10.2x10^3uL (1.8-7.7) Lymphocytes # (Auto) 1.5x10^3/uL (1.0-4.8) Monocytes # (Auto) 2.0x10^3/uL (0.0-1.1) Eosinophils # (Auto) 0.4x10^3/uL (0.0-0.7) Basophils # (Auto) 0.2x10^3/uL (0.0-0.2) Sodium Level 137mmol/L (136-145) Potassium Level 4.1mmol/L (3.5-5.1) Chloride Level 101mmol/L (98-107) Carbon Dioxide Level 21mmol/L (21-32) Anion Gap 15 (6-14) Blood Urea Nitrogen 19mg/dL (8-26) Creatinine 1.8mg/dL (0.7-1.3) Estimated GFR (Cockcroft-Gault) 51.4 BUN/Creatinine Ratio 11 (6-20) Glucose Level 132mg/dL (70-99) Calcium Level 8.8mg/dL (8.5-10.1) Total Bilirubin 1.9mg/dL (0.2-1.0) Aspartate Amino Transf (AST/SGOT) 55U/L (15-37) Alanine Aminotransferase (ALT/SGPT) 23U/L (16-63) Alkaline Phosphatase 376U/L (46-116) Creatine Kinase 174U/L (39-308) Creatine Kinase MB (Mass) 2.4ng/mL (0.0-3.6) Creatine Kinase MB Relative Index 1.4% (0-4) Troponin I Quantitative < 0.017ng/mL (0.000-0.055) WB-Ofd-Z-Type Natriuretic Peptide 1894pg/mL (0-124) Total Protein 8.2g/dL (6.4-8.2) Albumin 2.2g/dL (3.4-5.0) Albumin/Globulin Ratio 0.4 (1.0-1.7) Influenza Type A Antigen Negative (NEGATIVE) Influenza Type B Antigen Negative (NEGATIVE) Stool Occult Blood Positive (NEG) Test 08/25/16 06:30 White Blood Count 14.2x10^3/uL (4.0-11.0) Red Blood Count 2.34x10^6/uL (4.30-5.70) Hemoglobin 7.5g/dL (13.0-17.5) Hematocrit 23.0% (39.0-53.0) Mean Corpuscular Volume 98fL (79-100) Mean Corpuscular Hemoglobin 32pg (25-35) Mean Corpuscular Hemoglobin Concent 33g/dL (31-37) Red Cell Distribution Width 16.5% (11.5-14.5) Platelet Count 189x10^3/uL (140-400) Neutrophils (%) (Auto) 74% (31-73) Lymphocytes (%) (Auto) 11% (24-48) Monocytes (%) (Auto) 12% (0-9) Eosinophils (%) (Auto) 3% (0-3) Basophils (%) (Auto) 1% (0-3) Neutrophils # (Auto) 10.6x10^3uL (1.8-7.7) Lymphocytes # (Auto) 1.5x10^3/uL (1.0-4.8) Monocytes # (Auto) 1.7x10^3/uL (0.0-1.1) Eosinophils # (Auto) 0.4x10^3/uL (0.0-0.7) Basophils # (Auto) 0.1x10^3/uL (0.0-0.2) Sodium Level 137mmol/L (136-145) Potassium Level 4.0mmol/L (3.5-5.1) Chloride Level 103mmol/L (98-107) Carbon Dioxide Level 23mmol/L (21-32) Anion Gap 11 (6-14) Blood Urea Nitrogen 21mg/dL (8-26) Creatinine 1.8mg/dL (0.7-1.3) Estimated GFR (Cockcroft-Gault) 51.4 Glucose Level 110mg/dL (70-99) Calcium Level 8.9mg/dL (8.5-10.1) Falling hemoglobin/no overt bleeding noted. MCV normal, but elevated RDW. Modestly elevated LFT's, alk phos most abnormal. Low A/G ratio. Elevated BNP. Images Images CT chest interpretation pending. As I view study, left upper lobe abnormality c /w pneumonia. Visualized upper abdominal area w/o marked abnormality other than ? gallstones in contracted GB (radioopaque stuff where would expect GB to be/no po contrast given). Assessment/Plan Assessment/Plan IMP: 1. Anemia, unclearly just AIDEN though elevated RDW consistent. No overt bleeding, but heme positive stool. Given daily PPI, peptic lesion seems unlikely and would presume was H.pylori negative and low risk of gastric malignancy. Change in bowel habits could indicate low-lying colon malignancy. Given some signs of liver problems, this could contribute, though did not appreciate any upper abdominal varices and portal gastropathy not as likely. 2. H/o of probably NSAID ulcer. 3. Gallstones? 4. Abnormal LFT"s--seem likely alcohol-related. 5. Change in bowel habits/occasional BRB per rectum. --ANNA, pneumonia, ? thyroid disease suspected as well. REC: 1. Iron studies, B12, folate, thyroid functions. 2. Hepatitis serologies 3. Sono abd 4. Treat presenting complaints. 5. May merit endoscopy pending above and improvement in pulmonary status. 6, Beware w/drawal. --other pending. Thank you for allowing me to assist in the care of this patient. Please call if questions. SADAF AGRAWAL MD Aug 25, 2016 08:30
--- NOTE | 2016-08-25 08:39 | RAD ---
CT chest without IV contrast History: Congestive heart failure, cough, shortness of breath. Comparison: CT angiogram of the chest 06/11/2016. Technique: Helical CT of the chest was performed without intravenous contrast. Axial, sagittal, and coronal reconstructions were obtained. One or more of the following individualized dose reduction techniques were utilized for the study: Automated exposure control Adjustment of mA and/or kV according to patient's size Use of iterative reconstruction technique. Findings: There is quantum mottle artifact as well as artifactually increased density involving the left chest wall secondary to patient body habitus. Visualized thyroid is symmetric. Trachea and mainstem bronchi appear patent. No mediastinal lymphadenopathy is seen. Thoracic aorta is without evidence of aneurysm. No pericardial thickening or cardiac chamber enlargement is identified. No significant septal thickening is identified. No pneumothorax or pleural effusion is seen. Both upper lobes demonstrate nodular groundglass opacity. There is more confluent groundglass opacity involving the left upper lobe as well. There is evidence of mild body wall edema involving the lower chest and visualized upper abdomen. Visualized upper abdomen demonstrates presence of ascites. Fatty liver disease is seen. Cholelithiasis is seen.. Impression: 1. Left greater than right upper lobe groundglass opacity. No pleural effusion is identified. The findings could represent nonspecific infectious or inflammatory process. Asymmetric pulmonary edema is thought less likely, but still possible. 2. Body wall edema. Ascites. 3. Fatty liver disease. 4. Cholelithiasis.
--- NOTE | 2016-08-25 08:46 | PDOC2 ---
[facility] TE[employer]IST[employer] 08/25/16 0846: CARDIAC CONSULT DATE OF CONSULT Date of Consult DATE: 08/25/16 TIME: 08:40 REASON FOR CONSULT Reason for Consult: CHF REFERRING PHYSICIAN Referring Physician: Dr. Robins SOURCE Source: Chart review, Patient HISTORY OF PRESENT ILLNESS HISTORY OF PRESENT ILLNESS This is a 36 yo male who presented with complaints of shortness of breath. Patient reports he has been short of breath over the last couple of months. Progressively worsening; much worse this past week. Reports 80lb weight gain over the last 6 months with significant swelling in his abdomen and bilateral lower extremities. Experiencing orthopnea for the last couple of week. Denies any chest pain, palpitations, dizziness, diaphoresis, or nausea/vomiting. No recent illness or fevers. No previous cardiac workup. Has a h/o gastric ulcers and potential liver insufficiency. Was referred to for further evaluation of "elevated liver enzymes" with appointment scheduled in early October. Reports chronic alcohol abuse. Drinks 6 pack of beer along with a 1/2 pint of gin daily, which is "considerably" less than he used to drink a couple of months ago. Denies previous experience of withdrawal, but reports he is able to recognize when he has not had a drink in awhile. Has not gone without alcohol for long period of time. Last drink yesterday morning. Reports occasional blood in stool/toilet. PAST MEDICAL HISTORY Cardiovascular: HTN, Hyperlipidemia Pulmonary: No pertinent hx GI: GERD, Peptic Ulcer disease Heme/Onc: No pertinent hx Hepatobiliary: Other Psych: Depression, Schizophrenia Musculoskeletal: Other (elevated LFT's ) Rheumatologic: No pertinent hx Infectious disease: No pertinent hx ENT: No pertinent hx Renal/: No pertinent hx Endocrine: No pertinent hx Dermatology: No pertinent hx PAST SURGICAL HISTORY Past Surgical History: No pertinent history FAMILY HISTORY Family History: Hypertension SOCIAL HISTORY Smoke: 1 pack per day ALCOHOL: heavy (6 pack beer and 1/2 pint gin daily ) Drugs: Marijuana (occasional ) Lives: with Family (mother ) CURRENT MEDICATIONS CURRENT MEDICATIONS Current Medications Medications (Trade) Dose Ordered Sig/Jarrett Route PRN Reason Start Time Stop Time Status Last Admin Dose Admin Albuterol/ Ipratropium 6 ml 6 ml 1X ONCE NEB 08/24/16 13:30 08/24/16 13:31 DC 08/24/16 13:11 Sodium Chloride (Iv Sodium Chloride 0.9% 1000ml Bag) 1,000 ml @ 100 mls/hr Q10H IV 08/24/16 16:00 08/25/16 15:59 08/24/16 17:57 Albuterol/ Ipratropium 3 ml 3 ml RTQID NEB 08/24/16 16:00 08/25/16 15:59 08/25/16 07:32 Levofloxacin/ Dextrose (LEVAQUIN 500mg PREMIX) 100 ml @ 100 mls/hr Q24H IV 08/24/16 16:00 08/24/16 18:03 Nicotine (Nicoderm Cq 21mg) 1 patch PRN DAILY PRN TD SMOKING CESSATION 08/24/16 16:15 08/24/16 17:56 Pantoprazole Sodium (Protonix Vial) 40 mg 1X ONCE IVP 08/24/16 16:15 08/24/16 16:17 DC 08/24/16 17:57 Pantoprazole Sodium (Protonix) 40 mg BID PO 08/24/16 21:00 08/25/16 08:19 Bupropion HCl (Wellbutrin) 100 mg BID PO 08/24/16 21:00 08/25/16 08:19 Furosemide (Lasix) 20 mg DAILY PO 08/24/16 17:00 08/25/16 08:19 Haloperidol (Haldol) 2 mg HS PO 08/24/16 21:00 08/24/16 20:38 Magnesium Oxide (Magnesium Oxide) 400 mg DAILY PO 08/25/16 09:00 08/25/16 08:19 Furosemide (Lasix) 80 mg 1X ONCE IVP 08/24/16 17:00 08/24/16 17:01 DC 08/24/16 17:57 Enoxaparin Sodium (Lovenox 60mg Syringe) 60 mg Q12HR SQ 08/24/16 21:00 08/25/16 08:21 ALLERGIES ALLERGIES: Coded Allergies: shellfish derived (Unverified Allergy, Intermediate, 08/25/16) NSAIDS (Non-Steroidal Anti-Inflamma (Verified Allergy, Mild, "told not to take" for GI concerns, 09/23/13) ROS Review of System 14 point ROS conducted with pertinent positives noted above in HPI. PHYSICAL EXAM General: Alert, Oriented X3, Cooperative, No acute distress HEENT: Atraumatic, Mucous membr. moist/pink Lungs: Other (diminished throughout ) Heart: Regular rate, Normal S1, Normal S2, Other (2/6 systolic murmur ) Abdomen: Soft, Other (ascites ) Extremities: Normal pulses, Other (2+ bilateral LE edema ) Skin: No breakdown, No significant lesion Neuro: Normal speech, Sensation intact Psych/Mental Status: Mental status NL, Mood NL MUSCULOSKELETAL: Full range of motion without pain VITALS VITALS Vital Signs Date Time Temp Pulse Resp B/P Pulse Ox O2 Delivery O2 Flow Rate FiO2 08/25/16 07:33 94 Room Air 08/25/16 07:00 98.5 93 20 116/65 2.0 98.5 LABS Lab: Laboratory Tests Test 08/24/16 11:55 08/24/16 13:09 08/24/16 13:35 08/24/16 19:40 White Blood Count 14.3x10^3/uL (4.0-11.0) 15.3x10^3/uL (4.0-11.0) Red Blood Count 2.49x10^6/uL (4.30-5.70) 2.62x10^6/uL (4.30-5.70) Hemoglobin 8.0g/dL (13.0-17.5) 8.3g/dL (13.0-17.5) Hematocrit 24.8% (39.0-53.0) 25.8% (39.0-53.0) Mean Corpuscular Volume 100fL (79-100) 99fL (79-100) Mean Corpuscular Hemoglobin 32pg (25-35) 32pg (25-35) Mean Corpuscular Hemoglobin Concent 32g/dL (31-37) 32g/dL (31-37) Red Cell Distribution Width 16.6% (11.5-14.5) 16.6% (11.5-14.5) Platelet Count 229x10^3/uL (140-400) 218x10^3/uL (140-400) Neutrophils (%) (Auto) 71% (31-73) Lymphocytes (%) (Auto) 10% (24-48) Monocytes (%) (Auto) 14% (0-9) Eosinophils (%) (Auto) 3% (0-3) Basophils (%) (Auto) 1% (0-3) Neutrophils # (Auto) 10.2x10^3uL (1.8-7.7) Lymphocytes # (Auto) 1.5x10^3/uL (1.0-4.8) Monocytes # (Auto) 2.0x10^3/uL (0.0-1.1) Eosinophils # (Auto) 0.4x10^3/uL (0.0-0.7) Basophils # (Auto) 0.2x10^3/uL (0.0-0.2) Sodium Level 137mmol/L (136-145) Potassium Level 4.1mmol/L (3.5-5.1) Chloride Level 101mmol/L (98-107) Carbon Dioxide Level 21mmol/L (21-32) Anion Gap 15 (6-14) Blood Urea Nitrogen 19mg/dL (8-26) Creatinine 1.8mg/dL (0.7-1.3) Estimated GFR (Cockcroft-Gault) 51.4 BUN/Creatinine Ratio 11 (6-20) Glucose Level 132mg/dL (70-99) Calcium Level 8.8mg/dL (8.5-10.1) Total Bilirubin 1.9mg/dL (0.2-1.0) Aspartate Amino Transf (AST/SGOT) 55U/L (15-37) Alanine Aminotransferase (ALT/SGPT) 23U/L (16-63) Alkaline Phosphatase 376U/L (46-116) Creatine Kinase 174U/L (39-308) Creatine Kinase MB (Mass) 2.4ng/mL (0.0-3.6) Creatine Kinase MB Relative Index 1.4% (0-4) Troponin I Quantitative < 0.017ng/mL (0.000-0.055) HJ-Snr-K-Type Natriuretic Peptide 1894pg/mL (0-124) Total Protein 8.2g/dL (6.4-8.2) Albumin 2.2g/dL (3.4-5.0) Albumin/Globulin Ratio 0.4 (1.0-1.7) Influenza Type A Antigen Negative (NEGATIVE) Influenza Type B Antigen Negative (NEGATIVE) Stool Occult Blood Positive (NEG) Test 08/25/16 06:30 White Blood Count 14.2x10^3/uL (4.0-11.0) Red Blood Count 2.34x10^6/uL (4.30-5.70) Hemoglobin 7.5g/dL (13.0-17.5) Hematocrit 23.0% (39.0-53.0) Mean Corpuscular Volume 98fL (79-100) Mean Corpuscular Hemoglobin 32pg (25-35) Mean Corpuscular Hemoglobin Concent 33g/dL (31-37) Red Cell Distribution Width 16.5% (11.5-14.5) Platelet Count 189x10^3/uL (140-400) Neutrophils (%) (Auto) 74% (31-73) Lymphocytes (%) (Auto) 11% (24-48) Monocytes (%) (Auto) 12% (0-9) Eosinophils (%) (Auto) 3% (0-3) Basophils (%) (Auto) 1% (0-3) Neutrophils # (Auto) 10.6x10^3uL (1.8-7.7) Lymphocytes # (Auto) 1.5x10^3/uL (1.0-4.8) Monocytes # (Auto) 1.7x10^3/uL (0.0-1.1) Eosinophils # (Auto) 0.4x10^3/uL (0.0-0.7) Basophils # (Auto) 0.1x10^3/uL (0.0-0.2) Sodium Level 137mmol/L (136-145) Potassium Level 4.0mmol/L (3.5-5.1) Chloride Level 103mmol/L (98-107) Carbon Dioxide Level 23mmol/L (21-32) Anion Gap 11 (6-14) Blood Urea Nitrogen 21mg/dL (8-26) Creatinine 1.8mg/dL (0.7-1.3) Estimated GFR (Cockcroft-Gault) 51.4 Glucose Level 110mg/dL (70-99) Calcium Level 8.9mg/dL (8.5-10.1) ASSESSMENT/PLAN ASSESSMENT/PLAN 1. Acute and chronic suspected diastolic heart failure check echo to evaluate LV function improved with Lasix; significant LE edema persists. Hold CCB continue diuresis with monitoring of renal function 2. Dyspnea multifactorial given HF, morbid obesity, and ?COPD/ANNA improved with steroids/diuresis per pulm 3. Hypertension controlled without meds hold home antiHTN therapy for now 4. Hyperlipidemia check lipids 5. Anemia + heme stool. liver insuff contributing? further workup per GI 6. elevated LFT in the setting of chronic alcohol use CT with fatty liver GI following 7. DAMION with ?CKD Cr 05/2016~ 1.0 now Cr 1.8- monitor with diuresis 8. hypothyroidism TSH 7.967 tx per PCP 9. chronic alcoholism monitor for withdrawal encouraged cessation 10. Morbid obesity lifestyle/diet modification discussed/encouraged 11. Anxiety/depression/schizophrenia Problems: MARANDA GAMINO MD 08/25/16 1631: CARDIAC CONSULT ALLERGIES ALLERGIES: Coded Allergies: shellfish derived (Unverified Allergy, Intermediate, 08/25/16) NSAIDS (Non-Steroidal Anti-Inflamma (Verified Allergy, Mild, "told not to take" for GI concerns, 09/23/13) ASSESSMENT/PLAN ASSESSMENT/PLAN Patient seen and examined. Agree with DEBURR TECHNICIAN's assessment and plan. Acute resp failure prob secondary to combination of acute on chronic diastolic heart failure and acute COPD exacerbation. Symptoms improving with diuresis and steroids. Pulm team following. 2D echo showed normal LV systolic function. Monitor for alcohol withdrawal symptoms. Thank you for your consultation. Problems: PALOMA SMITH APRN Aug 25, 2016 08:46 MARANDA GAMINO MD Aug 25, 2016 16:31
[2016-08-25] MEDS ORDERED: OMEPRAZOLE 40 MG PO SCH (09:00)
[2016-08-25 09:14] LABS: % SAT IRON 26 % (15-34); IRON,SERUM 40 ug/dL (65-175)
[2016-08-25 11:46] LABS: FOLATE 4.07 ng/ml (3.2-20.0)
--- NOTE | 2016-08-25 13:55 | RAD ---
Abdominal ultrasound, 08/25/2016: History: Elevated alk phosphatase level The study is compromised by the patient's size. The gallbladder is thick-walled and contains echogenic foci compatible with gallstones. No bile duct dilatation is seen. The liver measures 22 cm in craniocaudad extent. It demonstrates increased echogenicity compatible with fatty change. The echo pattern in the superior aspect of the liver is heterogeneous. The pancreas was obscured by overlying bowel. The spleen is at the upper limits of normal in size. No renal abnormality is detected. The abdominal aorta and aorta and inferior vena cava are also largely obscured by bowel. A small amount of ascites is present in the abdomen. IMPRESSION: 1. Cholelithiasis with moderate associated gallbladder wall thickening. This mural thickening can be due to a variety of causes including cholecystitis, liver disease, hypoproteinemia or renal disease. 2. Hepatomegaly with increased hepatic echogenicity compatible with hepatic steatosis. 3. Heterogeneous echogenicity in the superior aspect of the right hepatic lobe is likely due to patchy fatty infiltration, although a hepatic mass cannot be excluded. 4. Small volume of ascites.
[2016-08-25] MEDS ORDERED: FUROSEMIDE 40 MG/4 ML VIAL. IVP SCH (14:00)
[2016-08-25] MEDS ORDERED: LORAZEPAM 2 MG/ML VIAL. IV PRN ×2 (14:15)
--- NOTE | 2016-08-25 14:17 | PDOC ---
PROGRESS NOTES Chief Complaint Chief Complaint dyspnea, tachypnea, wheeze, SIRS Acute exacerbation of diastolic CHF, consider cor pulmonale pickwickian, obesity hypovent tobaccoism morbid Obesity, BMI 59 w/ ongoing mod/severe malnutrition, will check urine protein CKD 3 anemia, heme + stool, repeat HGb, IV PPI and PO BId, consult GI to follow anxiety, depression, schizotypal History of Present Illness History of Present Illness echo and Abd US today mult consultants anemia a little worse, will check urine for protein loss, Vitals Vitals Vital Signs Date Time Temp Pulse Resp B/P Pulse Ox O2 Delivery O2 Flow Rate FiO2 08/25/16 10:44 94 Room Air 08/25/16 08:00 2.0 08/25/16 07:00 98.5 93 20 116/65 98.5 Physical Exam General: Alert, Oriented X3, Cooperative, No acute distress Heart: Regular rate, Normal S1, Normal S2, Other (2/6 systolic murmur ) Lungs: Other (rales) Abdomen: Soft, Other (ascites ) Extremities: Normal pulses, Other (2+ bilateral LE edema , diffuse thickening of pretibial skin) Skin: No breakdown, No significant lesion Labs LABS Laboratory Tests Test 08/24/16 19:40 08/25/16 06:30 White Blood Count 15.3x10^3/uL (4.0-11.0) 14.2x10^3/uL (4.0-11.0) Red Blood Count 2.62x10^6/uL (4.30-5.70) 2.34x10^6/uL (4.30-5.70) Hemoglobin 8.3g/dL (13.0-17.5) 7.5g/dL (13.0-17.5) Hematocrit 25.8% (39.0-53.0) 23.0% (39.0-53.0) Mean Corpuscular Volume 99fL (79-100) 98fL (79-100) Mean Corpuscular Hemoglobin 32pg (25-35) 32pg (25-35) Mean Corpuscular Hemoglobin Concent 32g/dL (31-37) 33g/dL (31-37) Red Cell Distribution Width 16.6% (11.5-14.5) 16.5% (11.5-14.5) Platelet Count 218x10^3/uL (140-400) 189x10^3/uL (140-400) Neutrophils (%) (Auto) 74% (31-73) Lymphocytes (%) (Auto) 11% (24-48) Monocytes (%) (Auto) 12% (0-9) Eosinophils (%) (Auto) 3% (0-3) Basophils (%) (Auto) 1% (0-3) Neutrophils # (Auto) 10.6x10^3uL (1.8-7.7) Lymphocytes # (Auto) 1.5x10^3/uL (1.0-4.8) Monocytes # (Auto) 1.7x10^3/uL (0.0-1.1) Eosinophils # (Auto) 0.4x10^3/uL (0.0-0.7) Basophils # (Auto) 0.1x10^3/uL (0.0-0.2) Sodium Level 137mmol/L (136-145) Potassium Level 4.0mmol/L (3.5-5.1) Chloride Level 103mmol/L (98-107) Carbon Dioxide Level 23mmol/L (21-32) Anion Gap 11 (6-14) Blood Urea Nitrogen 21mg/dL (8-26) Creatinine 1.8mg/dL (0.7-1.3) Estimated GFR (Cockcroft-Gault) 51.4 Glucose Level 110mg/dL (70-99) Calcium Level 8.9mg/dL (8.5-10.1) Iron Level 40ug/dL (65-175) Total Iron Binding Capacity 151ug/dL (250-450) Iron Saturation 26% (15-34) Vitamin B12 Level 868pg/mL (247-911) Serum Folate 4.07ng/ml (3.2-20.0) Thyroid Stimulating Hormone (TSH) 7.967uIU/mL (0.358-3.74) Review of Systems Review of Systems weakness nausea Assessment and Plan Assessmemt and Plan Problems Medical Problems: (1) Anasarca Status: Acute (2) Anemia Status: Acute (3) Community acquired pneumonia Status: Acute (4) Congestive heart failure Status: Acute (5) Severe protein-calorie malnutrition Status: Acute Problems: Comment Review of Relevant I have reviewed the following items maci (where applicable) has been applied. Labs Laboratory Tests Test 08/24/16 11:55 08/24/16 13:09 08/24/16 13:35 08/24/16 19:40 White Blood Count 14.3x10^3/uL (4.0-11.0) 15.3x10^3/uL (4.0-11.0) Red Blood Count 2.49x10^6/uL (4.30-5.70) 2.62x10^6/uL (4.30-5.70) Hemoglobin 8.0g/dL (13.0-17.5) 8.3g/dL (13.0-17.5) Hematocrit 24.8% (39.0-53.0) 25.8% (39.0-53.0) Mean Corpuscular Volume 100fL (79-100) 99fL (79-100) Mean Corpuscular Hemoglobin 32pg (25-35) 32pg (25-35) Mean Corpuscular Hemoglobin Concent 32g/dL (31-37) 32g/dL (31-37) Red Cell Distribution Width 16.6% (11.5-14.5) 16.6% (11.5-14.5) Platelet Count 229x10^3/uL (140-400) 218x10^3/uL (140-400) Neutrophils (%) (Auto) 71% (31-73) Lymphocytes (%) (Auto) 10% (24-48) Monocytes (%) (Auto) 14% (0-9) Eosinophils (%) (Auto) 3% (0-3) Basophils (%) (Auto) 1% (0-3) Neutrophils # (Auto) 10.2x10^3uL (1.8-7.7) Lymphocytes # (Auto) 1.5x10^3/uL (1.0-4.8) Monocytes # (Auto) 2.0x10^3/uL (0.0-1.1) Eosinophils # (Auto) 0.4x10^3/uL (0.0-0.7) Basophils # (Auto) 0.2x10^3/uL (0.0-0.2) Sodium Level 137mmol/L (136-145) Potassium Level 4.1mmol/L (3.5-5.1) Chloride Level 101mmol/L (98-107) Carbon Dioxide Level 21mmol/L (21-32) Anion Gap 15 (6-14) Blood Urea Nitrogen 19mg/dL (8-26) Creatinine 1.8mg/dL (0.7-1.3) Estimated GFR (Cockcroft-Gault) 51.4 BUN/Creatinine Ratio 11 (6-20) Glucose Level 132mg/dL (70-99) Calcium Level 8.8mg/dL (8.5-10.1) Total Bilirubin 1.9mg/dL (0.2-1.0) Aspartate Amino Transf (AST/SGOT) 55U/L (15-37) Alanine Aminotransferase (ALT/SGPT) 23U/L (16-63) Alkaline Phosphatase 376U/L (46-116) Creatine Kinase 174U/L (39-308) Creatine Kinase MB (Mass) 2.4ng/mL (0.0-3.6) Creatine Kinase MB Relative Index 1.4% (0-4) Troponin I Quantitative < 0.017ng/mL (0.000-0.055) LY-Ghq-X-Type Natriuretic Peptide 1894pg/mL (0-124) Total Protein 8.2g/dL (6.4-8.2) Albumin 2.2g/dL (3.4-5.0) Albumin/Globulin Ratio 0.4 (1.0-1.7) Influenza Type A Antigen Negative (NEGATIVE) Influenza Type B Antigen Negative (NEGATIVE) Stool Occult Blood Positive (NEG) Test 08/25/16 06:30 White Blood Count 14.2x10^3/uL (4.0-11.0) Red Blood Count 2.34x10^6/uL (4.30-5.70) Hemoglobin 7.5g/dL (13.0-17.5) Hematocrit 23.0% (39.0-53.0) Mean Corpuscular Volume 98fL (79-100) Mean Corpuscular Hemoglobin 32pg (25-35) Mean Corpuscular Hemoglobin Concent 33g/dL (31-37) Red Cell Distribution Width 16.5% (11.5-14.5) Platelet Count 189x10^3/uL (140-400) Neutrophils (%) (Auto) 74% (31-73) Lymphocytes (%) (Auto) 11% (24-48) Monocytes (%) (Auto) 12% (0-9) Eosinophils (%) (Auto) 3% (0-3) Basophils (%) (Auto) 1% (0-3) Neutrophils # (Auto) 10.6x10^3uL (1.8-7.7) Lymphocytes # (Auto) 1.5x10^3/uL (1.0-4.8) Monocytes # (Auto) 1.7x10^3/uL (0.0-1.1) Eosinophils # (Auto) 0.4x10^3/uL (0.0-0.7) Basophils # (Auto) 0.1x10^3/uL (0.0-0.2) Sodium Level 137mmol/L (136-145) Potassium Level 4.0mmol/L (3.5-5.1) Chloride Level 103mmol/L (98-107) Carbon Dioxide Level 23mmol/L (21-32) Anion Gap 11 (6-14) Blood Urea Nitrogen 21mg/dL (8-26) Creatinine 1.8mg/dL (0.7-1.3) Estimated GFR (Cockcroft-Gault) 51.4 Glucose Level 110mg/dL (70-99) Calcium Level 8.9mg/dL (8.5-10.1) Iron Level 40ug/dL (65-175) Total Iron Binding Capacity 151ug/dL (250-450) Iron Saturation 26% (15-34) Vitamin B12 Level 868pg/mL (247-911) Serum Folate 4.07ng/ml (3.2-20.0) Thyroid Stimulating Hormone (TSH) 7.967uIU/mL (0.358-3.74) Laboratory Tests Test 08/24/16 19:40 08/25/16 06:30 White Blood Count 15.3x10^3/uL (4.0-11.0) 14.2x10^3/uL (4.0-11.0) Red Blood Count 2.62x10^6/uL (4.30-5.70) 2.34x10^6/uL (4.30-5.70) Hemoglobin 8.3g/dL (13.0-17.5) 7.5g/dL (13.0-17.5) Hematocrit 25.8% (39.0-53.0) 23.0% (39.0-53.0) Mean Corpuscular Volume 99fL (79-100) 98fL (79-100) Mean Corpuscular Hemoglobin 32pg (25-35) 32pg (25-35) Mean Corpuscular Hemoglobin Concent 32g/dL (31-37) 33g/dL (31-37) Red Cell Distribution Width 16.6% (11.5-14.5) 16.5% (11.5-14.5) Platelet Count 218x10^3/uL (140-400) 189x10^3/uL (140-400) Neutrophils (%) (Auto) 74% (31-73) Lymphocytes (%) (Auto) 11% (24-48) Monocytes (%) (Auto) 12% (0-9) Eosinophils (%) (Auto) 3% (0-3) Basophils (%) (Auto) 1% (0-3) Neutrophils # (Auto) 10.6x10^3uL (1.8-7.7) Lymphocytes # (Auto) 1.5x10^3/uL (1.0-4.8) Monocytes # (Auto) 1.7x10^3/uL (0.0-1.1) Eosinophils # (Auto) 0.4x10^3/uL (0.0-0.7) Basophils # (Auto) 0.1x10^3/uL (0.0-0.2) Sodium Level 137mmol/L (136-145) Potassium Level 4.0mmol/L (3.5-5.1) Chloride Level 103mmol/L (98-107) Carbon Dioxide Level 23mmol/L (21-32) Anion Gap 11 (6-14) Blood Urea Nitrogen 21mg/dL (8-26) Creatinine 1.8mg/dL (0.7-1.3) Estimated GFR (Cockcroft-Gault) 51.4 Glucose Level 110mg/dL (70-99) Calcium Level 8.9mg/dL (8.5-10.1) Iron Level 40ug/dL (65-175) Total Iron Binding Capacity 151ug/dL (250-450) Iron Saturation 26% (15-34) Vitamin B12 Level 868pg/mL (247-911) Serum Folate 4.07ng/ml (3.2-20.0) Thyroid Stimulating Hormone (TSH) 7.967uIU/mL (0.358-3.74) Medications Current Medications Albuterol/ Ipratropium (Duoneb) 6 ml 1X ONCE NEB Last administered on 13:11; Start 08/24/16 at 13:30; Stop 08/24/16 at 13:31; Status DC Albuterol Sulfate (Ventolin Neb Soln) 2.5 mg STK-MED ONCE .ROUTE ; Start at 13:06; Stop 08/24/16 at 13:07; Status DC Albuterol/ Ipratropium (Duoneb) 3 ml STK-MED ONCE .ROUTE ; Start 08/24/16 at 13: 06; Stop 08/24/16 at 13:07; Status DC Ondansetron HCl (Zofran) 4 mg PRN Q8HRS PRN IV NAUSEA/VOMITING; Start 08/24/16 at 15:30; Stop 08/25/16 at 15:29 Fentanyl Citrate 50 mcg 50 mcg PRN Q2HR PRN IV PAIN; Start 08/24/16 at 15:30; Stop 08/25/16 at 15:29 Sodium Chloride (Iv Sodium Chloride 0.9% 1000ml Bag) 1,000 ml @ 100 mls/hr Q10H IV Last administered on 08/24/16 17:57; Start 08/24/16 at 16:00; Stop at 15:59 Albuterol/ Ipratropium (Duoneb) 3 ml RTQID NEB Last administered on 08/25/16 10 :44; Start 08/24/16 at 16:00; Stop 08/25/16 at 15:59 Levofloxacin/ Dextrose 1 each 1 each PRN DAILY PRN MC SEE COMMENTS; Start at 15:30 Levofloxacin/ Dextrose (LEVAQUIN 500mg PREMIX) 100 ml @ 100 mls/hr Q24H IV Last administered on 08/24/16 18:03; Start 08/24/16 at 16:00 Nicotine (Nicoderm Cq 21mg) 1 patch PRN DAILY PRN TD SMOKING CESSATION Last administered on 08/24/16 17:56; Start 08/24/16 at 16:15 Nicotine Polacrilex (Nicorette Gum) 1 each PRN Q1HR PRN BC SMOKING CESSATION; Start 08/24/16 at 16:15 Pantoprazole Sodium (Protonix Vial) 40 mg 1X ONCE IVP Last administered on 08/24 17:57; Start 08/24/16 at 16:15; Stop 08/24/16 at 16:17; Status DC Pantoprazole Sodium (Protonix) 40 mg BID PO Last administered on 08/25/16 08:19 ; Start 08/24/16 at 21:00 Bupropion HCl (Wellbutrin) 100 mg BID PO Last administered on 08/25/16 08:19; Start 08/24/16 at 21:00 Furosemide (Lasix) 20 mg DAILY PO Last administered on 08/25/16 08:19; Start at 17:00; Stop 08/25/16 at 13:03; Status DC Haloperidol (Haldol) 2 mg HS PO Last administered on 08/24/16 20:38; Start 08/24 at 21:00 Magnesium Oxide (Magnesium Oxide) 400 mg DAILY PO Last administered on 08:19; Start 08/25/16 at 09:00 Non-Formulary Medication 40 mg DAILY PO ; Start 08/25/16 at 09:00; Status UNV Enoxaparin Sodium (Lovenox Per Pharmacy Prophylaxis Dosing) 1 each PRN DAILY PRN MC SEE COMMENTS; Start 08/24/16 at 16:45 Furosemide (Lasix) 80 mg 1X ONCE IVP Last administered on 08/24/16 17:57; Start 08/24/16 at 17:00; Stop 08/24/16 at 17:01; Status DC Enoxaparin Sodium (Lovenox 60mg Syringe) 60 mg Q12HR SQ Last administered on 08:21; Start 08/24/16 at 21:00 Furosemide (Lasix) 40 mg DAILY IVP ; Start 08/25/16 at 14:00 Thiamine HCl (Vitamin B-1) 100 mg DAILY PO ; Start 08/25/16 at 14:15; Status UNV Vitamin B Complex (Folbic Tablet) 1 tab DAILY PO ; Start 08/26/16 at 09:00; Status UNV Active Scripts Active Lasix (Furosemide) 20 Mg Tablet 1 Tab PO DAILY Magnesium Oxide 400 Mg Tablet 1 Tab PO DAILY Reported Wellbutrin (Bupropion Hcl) 100 Mg Tablet Unknown Dose PO BID Haloperidol 2 Mg Tablet Unknown Dose PO Prilosec (Omeprazole) 40 Mg Capsule.dr 40 Mg PO DAILY Exforge 5-160 Mg Tablet (Amlodipine/Valsartan) 1 Each Tablet Unknown Dose PO Vitals/I & O Vital Sign - Last 24 Hours 08/24/16 08/24/16 08/24/16 08/24/16 16:13 18:33 19:00 19:57 Temp 97.7 98.5 97.7 98.5 Pulse 95 96 Resp 22 20 B/P 120/64 124/68 Pulse Ox 92 95 100 O2 Delivery Room Air Room Air Nasal Cannula Nasal Cannula O2 Flow Rate 2.0 08/24/16 08/24/16 08/24/16 08/25/16 20:00 23:00 23:53 03:13 Temp 100.2 98.9 98.7 100.2 98.9 98.7 Pulse 96 95 Resp 20 20 B/P 120/61 134/72 Pulse Ox 93 90 O2 Delivery Nasal Cannula Nasal Cannula Nasal Cannula O2 Flow Rate 2.0 08/25/16 08/25/16 08/25/16 08/25/16 07:00 07:33 08:00 10:44 Temp 98.5 98.5 Pulse 93 Resp 20 B/P 116/65 Pulse Ox 97 94 94 O2 Delivery Nasal Cannula Room Air Nasal Cannula Room Air O2 Flow Rate 2.0 2.0 Intake and Output 08/24/16 08/24/16 08/25/16 15:00 23:00 07:00 Intake Total 180 ml 720 ml Output Total 0 ml 600 ml Balance 180 ml 120 ml RESHMA FRANKEL MD Aug 25, 2016 14:17
[2016-08-25] MEDS: THIAMINE 100 MG TABLET. PO SCH (14:21)
[2016-08-25] MEDS: LORAZEPAM 1 MG TABLET. PO SCH (14:22)
--- NOTE | 2016-08-25 14:31 | PDOC2 ---
CONSULT Date of Consult Date of Consult DATE: 08/25/16 TIME: 14:29 Reason for Consult Reason for Consult: DAMION Referring Physician Referring Physician: dr Robins Source Source: Chart review, Patient History of Present Illness Reason for Visit: as dictated Past Medical History Cardiovascular: HTN, Hyperlipidemia Pulmonary: No pertinent hx GI: GERD, Peptic Ulcer disease Heme/Onc: No pertinent hx Hepatobiliary: Other Psych: Depression, Schizophrenia Musculoskeletal: Other (elevated LFT's ) Rheumatologic: No pertinent hx Infectious disease: No pertinent hx ENT: No pertinent hx Renal/: No pertinent hx Endocrine: No pertinent hx Dermatology: No pertinent hx Past Surgical History Past Surgical History: No pertinent history Family History Family History: Hypertension, Other (-ve for known renal diz) Social History 1 pack per day ALCOHOL: heavy (6 pack beer and 1/2 pint gin daily ) Drugs: Marijuana (occasional ) Lives: with Family (mother ) Current Problem List Problem List Problems Medical Problems: (1) Anasarca Status: Acute (2) Anemia Status: Acute (3) Community acquired pneumonia Status: Acute (4) Congestive heart failure Status: Acute (5) Severe protein-calorie malnutrition Status: Acute Current Medications Current Medications Current Medications Albuterol/ Ipratropium (Duoneb) 6 ml 1X ONCE NEB Last administered on t 13:11; Start 08/24/16 at 13:30; Stop 08/24/16 at 13:31; Status DC Albuterol Sulfate (Ventolin Neb Soln) 2.5 mg STK-MED ONCE .ROUTE ; Start at 13:06; Stop 08/24/16 at 13:07; Status DC Albuterol/ Ipratropium (Duoneb) 3 ml STK-MED ONCE .ROUTE ; Start 08/24/16 at 13: 06; Stop 08/24/16 at 13:07; Status DC Ondansetron HCl (Zofran) 4 mg PRN Q8HRS PRN IV NAUSEA/VOMITING; Start 08/24/16 at 15:30; Stop 08/25/16 at 15:29 Fentanyl Citrate 50 mcg 50 mcg PRN Q2HR PRN IV PAIN; Start 08/24/16 at 15:30; Stop 08/25/16 at 15:29 Sodium Chloride (Iv Sodium Chloride 0.9% 1000ml Bag) 1,000 ml @ 100 mls/hr Q10H IV Last administered on 08/24/16 17:57; Start 08/24/16 at 16:00; Stop at 15:59 Albuterol/ Ipratropium (Duoneb) 3 ml RTQID NEB Last administered on 08/25/16 10 :44; Start 08/24/16 at 16:00; Stop 08/25/16 at 15:59 Levofloxacin/ Dextrose 1 each 1 each PRN DAILY PRN MC SEE COMMENTS; Start at 15:30 Levofloxacin/ Dextrose (LEVAQUIN 500mg PREMIX) 100 ml @ 100 mls/hr Q24H IV Last administered on 08/24/16 18:03; Start 08/24/16 at 16:00 Nicotine (Nicoderm Cq 21mg) 1 patch PRN DAILY PRN TD SMOKING CESSATION Last administered on 08/24/16 17:56; Start 08/24/16 at 16:15 Nicotine Polacrilex (Nicorette Gum) 1 each PRN Q1HR PRN BC SMOKING CESSATION; Start 08/24/16 at 16:15 Pantoprazole Sodium (Protonix Vial) 40 mg 1X ONCE IVP Last administered on 08/24 17:57; Start 08/24/16 at 16:15; Stop 08/24/16 at 16:17; Status DC Pantoprazole Sodium (Protonix) 40 mg BID PO Last administered on 08/25/16 08:19 ; Start 08/24/16 at 21:00 Bupropion HCl (Wellbutrin) 100 mg BID PO Last administered on 08/25/16 08:19; Start 08/24/16 at 21:00 Furosemide (Lasix) 20 mg DAILY PO Last administered on 08/25/16 08:19; Start at 17:00; Stop 08/25/16 at 13:03; Status DC Haloperidol (Haldol) 2 mg HS PO Last administered on 08/24/16 20:38; Start 08/24 at 21:00 Magnesium Oxide (Magnesium Oxide) 400 mg DAILY PO Last administered on 08:19; Start 08/25/16 at 09:00 Non-Formulary Medication 40 mg DAILY PO ; Start 08/25/16 at 09:00; Status UNV Enoxaparin Sodium (Lovenox Per Pharmacy Prophylaxis Dosing) 1 each PRN DAILY PRN MC SEE COMMENTS; Start 08/24/16 at 16:45 Furosemide (Lasix) 80 mg 1X ONCE IVP Last administered on 08/24/16 17:57; Start 08/24/16 at 17:00; Stop 08/24/16 at 17:01; Status DC Enoxaparin Sodium (Lovenox 60mg Syringe) 60 mg Q12HR SQ Last administered on 08:21; Start 08/24/16 at 21:00 Furosemide (Lasix) 40 mg DAILY IVP Last administered on 08/25/16 14:22; Start 08/25/16 at 14:00 Thiamine HCl (Vitamin B-1) 100 mg DAILY PO Last administered on 08/25/16 14:21 ; Start 08/25/16 at 14:15 Vitamin B Complex (Folbic Tablet) 1 tab DAILY PO ; Start 08/26/16 at 09:00 Lorazepam (Ativan) 2 mg PRN Q1HR PRN IV For CIWA 8-14; Start 08/25/16 at 14:15 Lorazepam (Ativan) 4 mg PRN Q1HR PRN IV For CIWA 15 or greater; Start 08/25/16 at 14:15 Lorazepam (Ativan) 1 mg DAILY PO Last administered on 08/25/16 14:22; Start 08/25/16 at 14:15 Active Scripts Active Lasix (Furosemide) 20 Mg Tablet 1 Tab PO DAILY Magnesium Oxide 400 Mg Tablet 1 Tab PO DAILY Reported Wellbutrin (Bupropion Hcl) 100 Mg Tablet Unknown Dose PO BID Haloperidol 2 Mg Tablet Unknown Dose PO Prilosec (Omeprazole) 40 Mg Capsule.dr 40 Mg PO DAILY Exforge 5-160 Mg Tablet (Amlodipine/Valsartan) 1 Each Tablet Unknown Dose PO Allergies Allergies: Coded Allergies: shellfish derived (Unverified Allergy, Intermediate, 08/25/16) NSAIDS (Non-Steroidal Anti-Inflamma (Verified Allergy, Mild, "told not to take" for GI concerns, 09/23/13) ROS Review of System nono GEN: ? Fevers no Chills EYES: no new Visual Complaints ENT: no EN Drainage no Hearing deficiets CVS: no Orthopnea no CP RESP: + SOB no KAYE + Cough with Yellow phoolegm GI: no Nausea no Vomiting + Blood in stools : no Dysuria no Urgency Dec Uo HEME: no easy bruising no Palp Ly Nodes NEURO no Focal Weakness no Sz PSYCH: no Suicidal Ideation ch Depression/ Schizo SKIN: no new Rashes ENDO: no Polyuria or Polydipsia no Hot/Cold Intolerance MU SK: occ Arthraigia no Myalgia Physical Exam Physical Exam General Appearance: Awake Alert Oriented x 2-3 In no Distress Eyes: VIsion Unchanged Conjunctiva Normal EN: No EN Drainage Mucous Memb. dryish Neck: no JVD no JVP Supple no Thyromegaly; thick neck CVS: S1 S2 no Murmur No Gallop No Rub + Edema Resp: no Rales no Rhonchi no Acc. Muscle use; distal BS GI: BAS +ve NO Bruit Non Tender ? Distended vs Morbidly obese : no CVA tenderness; no Suprapubic Tenderness SKIN: no Rashes Breast Exam deferred Mu.Sk: Adequate ROM no Muscle Atrophy Heme: Unable to palpate Obvious LAD no palp Splenomegaly NEURO: Good Strength and Tone Cranial Nerves II - XII grossly intact Psych: + Depressed no Active hallucination Vital Signs Vital Signs Date Time Temp Pulse Resp B/P Pulse Ox O2 Delivery O2 Flow Rate FiO2 08/25/16 10:44 94 Room Air 08/25/16 08:00 2.0 08/25/16 07:00 98.5 93 20 116/65 98.5 Assessment & Plan DAMION - with Oliuria - IV NS for now. ? due to diarrhea and pre-renal vs HRS from , Current FLuid and E-lyte status does not necessitate emergent need for Dialysis. IVF for now Edema - ? Liver etio related vs due to CCB; min currenlty HTN: Current BP meds reviewed. See orders for changes. Oliguria - susepct VOl depeotion vs HRS. Check Joan ^ Protein gap - ? Paraproteinr due to infection vs Monoclonal Discussed Plan of Care and prognosis etc. at length with family. Labs Labs Laboratory Tests Test 08/24/16 11:55 08/24/16 13:09 08/24/16 13:35 08/24/16 19:40 White Blood Count 14.3x10^3/uL (4.0-11.0) 15.3x10^3/uL (4.0-11.0) Red Blood Count 2.49x10^6/uL (4.30-5.70) 2.62x10^6/uL (4.30-5.70) Hemoglobin 8.0g/dL (13.0-17.5) 8.3g/dL (13.0-17.5) Hematocrit 24.8% (39.0-53.0) 25.8% (39.0-53.0) Mean Corpuscular Volume 100fL (79-100) 99fL (79-100) Mean Corpuscular Hemoglobin 32pg (25-35) 32pg (25-35) Mean Corpuscular Hemoglobin Concent 32g/dL (31-37) 32g/dL (31-37) Red Cell Distribution Width 16.6% (11.5-14.5) 16.6% (11.5-14.5) Platelet Count 229x10^3/uL (140-400) 218x10^3/uL (140-400) Neutrophils (%) (Auto) 71% (31-73) Lymphocytes (%) (Auto) 10% (24-48) Monocytes (%) (Auto) 14% (0-9) Eosinophils (%) (Auto) 3% (0-3) Basophils (%) (Auto) 1% (0-3) Neutrophils # (Auto) 10.2x10^3uL (1.8-7.7) Lymphocytes # (Auto) 1.5x10^3/uL (1.0-4.8) Monocytes # (Auto) 2.0x10^3/uL (0.0-1.1) Eosinophils # (Auto) 0.4x10^3/uL (0.0-0.7) Basophils # (Auto) 0.2x10^3/uL (0.0-0.2) Sodium Level 137mmol/L (136-145) Potassium Level 4.1mmol/L (3.5-5.1) Chloride Level 101mmol/L (98-107) Carbon Dioxide Level 21mmol/L (21-32) Anion Gap 15 (6-14) Blood Urea Nitrogen 19mg/dL (8-26) Creatinine 1.8mg/dL (0.7-1.3) Estimated GFR (Cockcroft-Gault) 51.4 BUN/Creatinine Ratio 11 (6-20) Glucose Level 132mg/dL (70-99) Calcium Level 8.8mg/dL (8.5-10.1) Total Bilirubin 1.9mg/dL (0.2-1.0) Aspartate Amino Transf (AST/SGOT) 55U/L (15-37) Alanine Aminotransferase (ALT/SGPT) 23U/L (16-63) Alkaline Phosphatase 376U/L (46-116) Creatine Kinase 174U/L (39-308) Creatine Kinase MB (Mass) 2.4ng/mL (0.0-3.6) Creatine Kinase MB Relative Index 1.4% (0-4) Troponin I Quantitative < 0.017ng/mL (0.000-0.055) NB-Crr-Z-Type Natriuretic Peptide 1894pg/mL (0-124) Total Protein 8.2g/dL (6.4-8.2) Albumin 2.2g/dL (3.4-5.0) Albumin/Globulin Ratio 0.4 (1.0-1.7) Influenza Type A Antigen Negative (NEGATIVE) Influenza Type B Antigen Negative (NEGATIVE) Stool Occult Blood Positive (NEG) Test 08/25/16 06:30 White Blood Count 14.2x10^3/uL (4.0-11.0) Red Blood Count 2.34x10^6/uL (4.30-5.70) Hemoglobin 7.5g/dL (13.0-17.5) Hematocrit 23.0% (39.0-53.0) Mean Corpuscular Volume 98fL (79-100) Mean Corpuscular Hemoglobin 32pg (25-35) Mean Corpuscular Hemoglobin Concent 33g/dL (31-37) Red Cell Distribution Width 16.5% (11.5-14.5) Platelet Count 189x10^3/uL (140-400) Neutrophils (%) (Auto) 74% (31-73) Lymphocytes (%) (Auto) 11% (24-48) Monocytes (%) (Auto) 12% (0-9) Eosinophils (%) (Auto) 3% (0-3) Basophils (%) (Auto) 1% (0-3) Neutrophils # (Auto) 10.6x10^3uL (1.8-7.7) Lymphocytes # (Auto) 1.5x10^3/uL (1.0-4.8) Monocytes # (Auto) 1.7x10^3/uL (0.0-1.1) Eosinophils # (Auto) 0.4x10^3/uL (0.0-0.7) Basophils # (Auto) 0.1x10^3/uL (0.0-0.2) Sodium Level 137mmol/L (136-145) Potassium Level 4.0mmol/L (3.5-5.1) Chloride Level 103mmol/L (98-107) Carbon Dioxide Level 23mmol/L (21-32) Anion Gap 11 (6-14) Blood Urea Nitrogen 21mg/dL (8-26) Creatinine 1.8mg/dL (0.7-1.3) Estimated GFR (Cockcroft-Gault) 51.4 Glucose Level 110mg/dL (70-99) Calcium Level 8.9mg/dL (8.5-10.1) Iron Level 40ug/dL (65-175) Total Iron Binding Capacity 151ug/dL (250-450) Iron Saturation 26% (15-34) Vitamin B12 Level 868pg/mL (247-911) Serum Folate 4.07ng/ml (3.2-20.0) Thyroid Stimulating Hormone (TSH) 7.967uIU/mL (0.358-3.74) Laboratory Tests Test 08/24/16 19:40 08/25/16 06:30 White Blood Count 15.3x10^3/uL (4.0-11.0) 14.2x10^3/uL (4.0-11.0) Red Blood Count 2.62x10^6/uL (4.30-5.70) 2.34x10^6/uL (4.30-5.70) Hemoglobin 8.3g/dL (13.0-17.5) 7.5g/dL (13.0-17.5) Hematocrit 25.8% (39.0-53.0) 23.0% (39.0-53.0) Mean Corpuscular Volume 99fL (79-100) 98fL (79-100) Mean Corpuscular Hemoglobin 32pg (25-35) 32pg (25-35) Mean Corpuscular Hemoglobin Concent 32g/dL (31-37) 33g/dL (31-37) Red Cell Distribution Width 16.6% (11.5-14.5) 16.5% (11.5-14.5) Platelet Count 218x10^3/uL (140-400) 189x10^3/uL (140-400) Neutrophils (%) (Auto) 74% (31-73) Lymphocytes (%) (Auto) 11% (24-48) Monocytes (%) (Auto) 12% (0-9) Eosinophils (%) (Auto) 3% (0-3) Basophils (%) (Auto) 1% (0-3) Neutrophils # (Auto) 10.6x10^3uL (1.8-7.7) Lymphocytes # (Auto) 1.5x10^3/uL (1.0-4.8) Monocytes # (Auto) 1.7x10^3/uL (0.0-1.1) Eosinophils # (Auto) 0.4x10^3/uL (0.0-0.7) Basophils # (Auto) 0.1x10^3/uL (0.0-0.2) Sodium Level 137mmol/L (136-145) Potassium Level 4.0mmol/L (3.5-5.1) Chloride Level 103mmol/L (98-107) Carbon Dioxide Level 23mmol/L (21-32) Anion Gap 11 (6-14) Blood Urea Nitrogen 21mg/dL (8-26) Creatinine 1.8mg/dL (0.7-1.3) Estimated GFR (Cockcroft-Gault) 51.4 Glucose Level 110mg/dL (70-99) Calcium Level 8.9mg/dL (8.5-10.1) Iron Level 40ug/dL (65-175) Total Iron Binding Capacity 151ug/dL (250-450) Iron Saturation 26% (15-34) Vitamin B12 Level 868pg/mL (247-911) Serum Folate 4.07ng/ml (3.2-20.0) Thyroid Stimulating Hormone (TSH) 7.967uIU/mL (0.358-3.74) Images Images ABD US: No renal abnormality is detected. The abdominal aorta and aorta and inferior vena cava are also largely obscured by bowel. IMPRESSION: 1. Cholelithiasis with moderate associated gallbladder wall thickening. This mural thickening can be due to a variety of causes including cholecystitis, liver disease, hypoproteinemia or renal disease. 2. Hepatomegaly with increased hepatic echogenicity compatible with hepatic steatosis. 3. Heterogeneous echogenicity in the superior aspect of the right hepatic lobe is likely due to patchy fatty infiltration, although a hepatic mass cannot be excluded. 4. Small volume of ascites LIZBET PEARL MD Aug 25, 2016 14:31
--- NOTE | 2016-08-25 14:36 | PDOC ---
PULMONARY PROGRESS NOTES Subjective no increase in soa Vitals Vital Signs Date Time Temp Pulse Resp B/P Pulse Ox O2 Delivery O2 Flow Rate FiO2 08/25/16 10:44 94 Room Air 08/25/16 08:00 2.0 08/25/16 07:00 98.5 93 20 116/65 98.5 General: Alert, No acute distress Lungs: Other (few ant rhonchi) Cardiovascular: S1 Abdomen: Soft, Other (markedly obese) Neuro Exam: Alert Extremities: Other (2+edema) Skin: Warm Labs Laboratory Tests Test 08/24/16 11:55 08/24/16 13:09 08/24/16 13:35 08/24/16 19:40 White Blood Count 14.3x10^3/uL (4.0-11.0) 15.3x10^3/uL (4.0-11.0) Red Blood Count 2.49x10^6/uL (4.30-5.70) 2.62x10^6/uL (4.30-5.70) Hemoglobin 8.0g/dL (13.0-17.5) 8.3g/dL (13.0-17.5) Hematocrit 24.8% (39.0-53.0) 25.8% (39.0-53.0) Mean Corpuscular Volume 100fL (79-100) 99fL (79-100) Mean Corpuscular Hemoglobin 32pg (25-35) 32pg (25-35) Mean Corpuscular Hemoglobin Concent 32g/dL (31-37) 32g/dL (31-37) Red Cell Distribution Width 16.6% (11.5-14.5) 16.6% (11.5-14.5) Platelet Count 229x10^3/uL (140-400) 218x10^3/uL (140-400) Neutrophils (%) (Auto) 71% (31-73) Lymphocytes (%) (Auto) 10% (24-48) Monocytes (%) (Auto) 14% (0-9) Eosinophils (%) (Auto) 3% (0-3) Basophils (%) (Auto) 1% (0-3) Neutrophils # (Auto) 10.2x10^3uL (1.8-7.7) Lymphocytes # (Auto) 1.5x10^3/uL (1.0-4.8) Monocytes # (Auto) 2.0x10^3/uL (0.0-1.1) Eosinophils # (Auto) 0.4x10^3/uL (0.0-0.7) Basophils # (Auto) 0.2x10^3/uL (0.0-0.2) Sodium Level 137mmol/L (136-145) Potassium Level 4.1mmol/L (3.5-5.1) Chloride Level 101mmol/L (98-107) Carbon Dioxide Level 21mmol/L (21-32) Anion Gap 15 (6-14) Blood Urea Nitrogen 19mg/dL (8-26) Creatinine 1.8mg/dL (0.7-1.3) Estimated GFR (Cockcroft-Gault) 51.4 BUN/Creatinine Ratio 11 (6-20) Glucose Level 132mg/dL (70-99) Calcium Level 8.8mg/dL (8.5-10.1) Total Bilirubin 1.9mg/dL (0.2-1.0) Aspartate Amino Transf (AST/SGOT) 55U/L (15-37) Alanine Aminotransferase (ALT/SGPT) 23U/L (16-63) Alkaline Phosphatase 376U/L (46-116) Creatine Kinase 174U/L (39-308) Creatine Kinase MB (Mass) 2.4ng/mL (0.0-3.6) Creatine Kinase MB Relative Index 1.4% (0-4) Troponin I Quantitative < 0.017ng/mL (0.000-0.055) OB-Poo-H-Type Natriuretic Peptide 1894pg/mL (0-124) Total Protein 8.2g/dL (6.4-8.2) Albumin 2.2g/dL (3.4-5.0) Albumin/Globulin Ratio 0.4 (1.0-1.7) Influenza Type A Antigen Negative (NEGATIVE) Influenza Type B Antigen Negative (NEGATIVE) Stool Occult Blood Positive (NEG) Test 08/25/16 06:30 White Blood Count 14.2x10^3/uL (4.0-11.0) Red Blood Count 2.34x10^6/uL (4.30-5.70) Hemoglobin 7.5g/dL (13.0-17.5) Hematocrit 23.0% (39.0-53.0) Mean Corpuscular Volume 98fL (79-100) Mean Corpuscular Hemoglobin 32pg (25-35) Mean Corpuscular Hemoglobin Concent 33g/dL (31-37) Red Cell Distribution Width 16.5% (11.5-14.5) Platelet Count 189x10^3/uL (140-400) Neutrophils (%) (Auto) 74% (31-73) Lymphocytes (%) (Auto) 11% (24-48) Monocytes (%) (Auto) 12% (0-9) Eosinophils (%) (Auto) 3% (0-3) Basophils (%) (Auto) 1% (0-3) Neutrophils # (Auto) 10.6x10^3uL (1.8-7.7) Lymphocytes # (Auto) 1.5x10^3/uL (1.0-4.8) Monocytes # (Auto) 1.7x10^3/uL (0.0-1.1) Eosinophils # (Auto) 0.4x10^3/uL (0.0-0.7) Basophils # (Auto) 0.1x10^3/uL (0.0-0.2) Sodium Level 137mmol/L (136-145) Potassium Level 4.0mmol/L (3.5-5.1) Chloride Level 103mmol/L (98-107) Carbon Dioxide Level 23mmol/L (21-32) Anion Gap 11 (6-14) Blood Urea Nitrogen 21mg/dL (8-26) Creatinine 1.8mg/dL (0.7-1.3) Estimated GFR (Cockcroft-Gault) 51.4 Glucose Level 110mg/dL (70-99) Calcium Level 8.9mg/dL (8.5-10.1) Iron Level 40ug/dL (65-175) Total Iron Binding Capacity 151ug/dL (250-450) Iron Saturation 26% (15-34) Vitamin B12 Level 868pg/mL (247-911) Serum Folate 4.07ng/ml (3.2-20.0) Thyroid Stimulating Hormone (TSH) 7.967uIU/mL (0.358-3.74) Laboratory Tests Test 08/24/16 19:40 08/25/16 06:30 White Blood Count 15.3x10^3/uL (4.0-11.0) 14.2x10^3/uL (4.0-11.0) Red Blood Count 2.62x10^6/uL (4.30-5.70) 2.34x10^6/uL (4.30-5.70) Hemoglobin 8.3g/dL (13.0-17.5) 7.5g/dL (13.0-17.5) Hematocrit 25.8% (39.0-53.0) 23.0% (39.0-53.0) Mean Corpuscular Volume 99fL (79-100) 98fL (79-100) Mean Corpuscular Hemoglobin 32pg (25-35) 32pg (25-35) Mean Corpuscular Hemoglobin Concent 32g/dL (31-37) 33g/dL (31-37) Red Cell Distribution Width 16.6% (11.5-14.5) 16.5% (11.5-14.5) Platelet Count 218x10^3/uL (140-400) 189x10^3/uL (140-400) Neutrophils (%) (Auto) 74% (31-73) Lymphocytes (%) (Auto) 11% (24-48) Monocytes (%) (Auto) 12% (0-9) Eosinophils (%) (Auto) 3% (0-3) Basophils (%) (Auto) 1% (0-3) Neutrophils # (Auto) 10.6x10^3uL (1.8-7.7) Lymphocytes # (Auto) 1.5x10^3/uL (1.0-4.8) Monocytes # (Auto) 1.7x10^3/uL (0.0-1.1) Eosinophils # (Auto) 0.4x10^3/uL (0.0-0.7) Basophils # (Auto) 0.1x10^3/uL (0.0-0.2) Sodium Level 137mmol/L (136-145) Potassium Level 4.0mmol/L (3.5-5.1) Chloride Level 103mmol/L (98-107) Carbon Dioxide Level 23mmol/L (21-32) Anion Gap 11 (6-14) Blood Urea Nitrogen 21mg/dL (8-26) Creatinine 1.8mg/dL (0.7-1.3) Estimated GFR (Cockcroft-Gault) 51.4 Glucose Level 110mg/dL (70-99) Calcium Level 8.9mg/dL (8.5-10.1) Iron Level 40ug/dL (65-175) Total Iron Binding Capacity 151ug/dL (250-450) Iron Saturation 26% (15-34) Vitamin B12 Level 868pg/mL (247-911) Serum Folate 4.07ng/ml (3.2-20.0) Thyroid Stimulating Hormone (TSH) 7.967uIU/mL (0.358-3.74) Medications Active Scripts Medications Dose Route/Sig Days Date Category Lasix (Furosemide) 20 Mg Tablet 1 Tab PO DAILY 06/11/16 Rx Magnesium Oxide 400 Mg Tablet 1 Tab PO DAILY 06/11/16 Rx Wellbutrin (Bupropion Hcl) 100 Mg Tablet Unknown Dose PO BID 08/14/14 Reported Haloperidol 2 Mg Tablet Unknown Dose PO 08/14/14 Reported Prilosec (Omeprazole) 40 Mg Capsule.dr 40 Mg PO DAILY 08/14/14 Reported Exforge 5-160 Mg Tablet (Amlodipine/Valsartan) 1 Each Tablet Unknown Dose PO 08/14/[address] CHEST 1. Left greater than right upper lobe groundglass opacity. No pleural effusion is identified. The findings could represent nonspecific infectious or inflammatory process. Asymmetric pulmonary edema is thought less likely, but still possible. 2. Body wall edema. Ascites. 3. Fatty liver disease. 4. Cholelithiasis. Impression . 1. Progressive dyspnea with 80-pound weight gain in last 6 months and with mild interstitial infiltrates in a morbidly obese patient with a BMI of 59. Most likely, this is [id number] cor pulmonale. He needs to have an echo to rule out any left ventricular dysfunction. 2. Suspect chronic renal insufficiency. 3. History of tobaccoism, possible underlying chronic obstructive pulmonary disease. 4. Morbid obesity. Plan . 1. Continue with diuresis. 2. Echocardiogram. 3. Noncontrast CT chest reviewed. Left greater than right upper lobe groundglass opacity. No pleural effusion is identified. The findings could represent nonspecific infectious or inflammatory process. Asymmetric pulmonary edema is also a possibility. add steroids/antibiotics 4. Weight loss, strongly emphasized. 5. Follow response diuresis. 6. Improve nutritional status. Albumin level is 2.2. 7. Discussed with Dr. Robins. SOLEDAD SNEED MD Aug 25, 2016 14:36
[2016-08-25 15:00] VITALS: BP 114/61
[2016-08-25] MEDS ORDERED: IV NORMAL SALINE 500ML BAG 500 ML IV PRN (15:15)
[2016-08-25] MEDS ORDERED: MAGNESIUM SULFATE 2GM 50 ML IV PRN (15:15)
[2016-08-25 15:26] LABS: URIC ACID 14.4 mg/dL (3.5-7.2)
[2016-08-25] MEDS: methylPREDNISolone SOD SUCC PF 40 MG/ML VIAL. IV SCH ×2 (15:57→21:13)
--- NOTE | 2016-08-25 16:18 | CARD ---
APPROVED REPORT EXAM: Two-dimensional and M-mode echocardiogram with Doppler and color Doppler. Other Information Quality : Technically Limited Rhythm : TachycardiaTechnically limited study due to body habitus. INDICATION Dyspnea Congestive Heart Failure 2D DIMENSIONS RVDd2.7 (2.9-3.5cm)Left Atrium(2D)3.5 (1.6-4.0cm) IVSd1.0 (0.7-1.1cm)Aortic Root(2D)2.9 (2.0-3.7cm) LVDd5.1 (3.9-5.9cm)LVOT Diameter2.1 (1.8-2.4cm) PWd1.1 (0.7-1.1cm)LVDs3.4 (2.5-4.0cm) FS (%) 33.8 %SV77.3 ml LVEF(%)62.3 (>50%) Aortic Valve AoV Peak Andrew.201.4cm/sAoV VTI41.4cm AO Peak GR.16.2mmHgLVOT Peak Andrew.155.3cm/s AO Mean GR.11mmHgAVA (VMAX)2.64cm2 DANA (VTI)2.20cm2 Mitral Valve MV E Ujivyiyc303.6cm/sMV E Peak Gr.12mmHg MV DECEL [id number] A Eaofwufe23.1cm/s MV E Mean Gr.5mmHgMV NYQ20qv E/A Ratio1.5MV A Hetjivhw72ey MVA (PHT)3.57cm2 Tricuspid Valve TR P. Hntkmvoe445gr/sRAP [id number] TR Peak Gr.85neHwXHOS98fnFx LEFT VENTRICLE The left ventricle is normal size. There is normal left ventricular wall thickness. Left ventricle sy stolic function is normal. The Ejection Fraction is 60-65%. There is grossly normal LV segmental wall motion. The left ventricular diastolic function and filling is normal for age. RIGHT VENTRICLE The right ventricle is normal size. The right ventricular systolic function is normal. ATRIA The left atrium size is normal. The right atrium size is normal. The interatrial septum is intact wit h no evidence for an atrial septal defect or patent foramen ovale as noted on 2-D or Doppler imaging. AORTIC VALVE The aortic valve is normal in structure and function. The aortic valve is trileaflet. Doppler and Col or Flow revealed no significant aortic regurgitation. There is no significant aortic valvular stenosi s. MITRAL VALVE The mitral valve is normal in structure and function. There is no mitral valve stenosis. Doppler and Color Flow revealed no mitral valve regurgitation noted. TRICUSPID VALVE The tricuspid valve is normal in structure and function. Doppler and Color Flow revealed mild tricusp id regurgitation. The PA pressure was estimated at 39 mmHg. There is no tricuspid valve stenosis. PULMONIC VALVE The pulmonic valve is not well visualized. Doppler and Color Flow revealed no pulmonic valvular regur gitation. There is no pulmonic valvular stenosis. GREAT VESSELS The aortic root is normal in size. Normal pulmonary venous flow (Doppler). The IVC was not visualized . PERICARDIAL EFFUSION There is no evidence of significant pericardial effusion. Critical Notification Critical Value: No <Conclusion> Left ventricle systolic function is normal. The Ejection Fraction is 60-65%. There is grossly normal LV segmental wall motion. Technically difficult study
[2016-08-25 17:05] LABS: BILIRUBIN,URINE NEGATIVE (NEG); GLUCOSE,URINE NEGATIVE (NEG); NITRITE,URINE NEGATIVE (NEG); PH,URINE 5.5; PROTEIN,URINE NEGATIVE (NEG-TRACE)
[2016-08-25 17:19] LABS: BACTERIA,URINE 0 /HPF (0-FEW); WBC,URINE 0 /HPF (0-4)
[2016-08-25 19:00] VITALS: BP 128/77
[2016-08-25] MEDS ORDERED: ALBUTEROL SULFATE 2.5 MG/3 ML NEBU. NEB PRN (19:45)
[2016-08-25] MEDS: HALOPERIDOL 2 MG TABLET. PO SCH (20:19)
[2016-08-25 23:00] VITALS: BP_SYST 110; BP_SYST 118; BP_SYST 122; BP_DIAS 67; BP_DIAS 72; BP_DIAS 73
[2016-08-26 03:07] VITALS: BP 113/68
[2016-08-26] MEDS: methylPREDNISolone SOD SUCC PF 40 MG/ML VIAL. IV SCH ×3 (05:22→20:47)
[2016-08-26 06:25] LABS: ALBUMIN 2.1 g/dL (3.4-5.0); CALCIUM 8.9 mg/dL (8.5-10.1); CREATININE 1.7 mg/dL (0.7-1.3); GFR 54.9; PHOSPHORUS 4.5 mg/dL (2.6-4.7); POTASSIUM 4.4 mmol/L (3.5-5.1)
[2016-08-26 07:00] VITALS: BP 100/58
--- NOTE | 2016-08-26 07:18 | CONS ---
DATE OF CONSULTATION: PRIMARY PHYSICIAN: Dr. Robins. REASON FOR CONSULTATION: Acute renal failure. HISTORY OF PRESENT ILLNESS: The patient is a 36-year-old morbidly obese -[place] gentleman, who is known to have some ____ liver pathology. He is known to have a baseline creatinine of 1.0 as recently as 06/11/2016. He is noted to have significant depression and schizophrenia. Based on his history, it is unclear to me as to the precise etiology of his possible liver dysfunction, but he noted abdominal distention and was also short of breath. He noted some blood in his stools and presented to the ER for further evaluation. Symptoms have gotten worse. He has not been urinating much. He does have a productive cough. The phlegm was yellow in color. Denies any fevers. He is not aware of peptic ulcer disease in this setting. He was brought to the ER for further evaluation. We were asked to see him since his creatinine has gone from ____ 1.8. For rest of the details, please see electronic renal consult note. LIZBET PEARL MD DR: NATHALIE/svitlana JOB#: [id number] / [id number]
[2016-08-26] MEDS: IPRATRPIUM/ALBUTEROL 0.5/2.5MG 3 ML NEBU. NEB SCH ×4 (07:21→20:26)
[2016-08-26] MEDS: THIAMINE 100 MG TABLET. PO SCH (09:09)
[2016-08-26] MEDS: MAGNESIUM OXIDE 400 MG TABLET PO SCH (09:09)
[2016-08-26] MEDS: buPROPion 100 MG TABLET PO SCH ×2 (09:09→20:47)
[2016-08-26] MEDS: VITAMIN B12,B9,B6 COMPLEX 1 TABLET. PO SCH (09:09)
[2016-08-26] MEDS: PANTOPRAZOLE 40 MG TABLET.DR. PO SCH ×2 (09:09→20:47)
[2016-08-26] MEDS: LORAZEPAM 1 MG TABLET. PO SCH (09:09)
--- NOTE | 2016-08-26 09:49 | PDOC ---
PULMONARY PROGRESS NOTES Subjective no increase in soa Vitals Vital Signs Date Time Temp Pulse Resp B/P Pulse Ox O2 Delivery O2 Flow Rate FiO2 08/26/16 07:22 97 Nasal Cannula 2.0 08/26/16 07:00 97.8 92 18 100/58 97.8 General: Alert, No acute distress Lungs: Other (few ant rhonchi) Cardiovascular: S1 Abdomen: Soft, Other (markedly obese) Neuro Exam: Alert Extremities: Other (2+edema) Skin: Warm Labs Laboratory Tests Test 08/24/16 11:55 08/24/16 13:09 08/24/16 13:35 08/24/16 19:40 White Blood Count 14.3x10^3/uL (4.0-11.0) 15.3x10^3/uL (4.0-11.0) Red Blood Count 2.49x10^6/uL (4.30-5.70) 2.62x10^6/uL (4.30-5.70) Hemoglobin 8.0g/dL (13.0-17.5) 8.3g/dL (13.0-17.5) Hematocrit 24.8% (39.0-53.0) 25.8% (39.0-53.0) Mean Corpuscular Volume 100fL (79-100) 99fL (79-100) Mean Corpuscular Hemoglobin 32pg (25-35) 32pg (25-35) Mean Corpuscular Hemoglobin Concent 32g/dL (31-37) 32g/dL (31-37) Red Cell Distribution Width 16.6% (11.5-14.5) 16.6% (11.5-14.5) Platelet Count 229x10^3/uL (140-400) 218x10^3/uL (140-400) Neutrophils (%) (Auto) 71% (31-73) Lymphocytes (%) (Auto) 10% (24-48) Monocytes (%) (Auto) 14% (0-9) Eosinophils (%) (Auto) 3% (0-3) Basophils (%) (Auto) 1% (0-3) Neutrophils # (Auto) 10.2x10^3uL (1.8-7.7) Lymphocytes # (Auto) 1.5x10^3/uL (1.0-4.8) Monocytes # (Auto) 2.0x10^3/uL (0.0-1.1) Eosinophils # (Auto) 0.4x10^3/uL (0.0-0.7) Basophils # (Auto) 0.2x10^3/uL (0.0-0.2) Sodium Level 137mmol/L (136-145) Potassium Level 4.1mmol/L (3.5-5.1) Chloride Level 101mmol/L (98-107) Carbon Dioxide Level 21mmol/L (21-32) Anion Gap 15 (6-14) Blood Urea Nitrogen 19mg/dL (8-26) Creatinine 1.8mg/dL (0.7-1.3) Estimated GFR (Cockcroft-Gault) 51.4 BUN/Creatinine Ratio 11 (6-20) Glucose Level 132mg/dL (70-99) Calcium Level 8.8mg/dL (8.5-10.1) Total Bilirubin 1.9mg/dL (0.2-1.0) Aspartate Amino Transf (AST/SGOT) 55U/L (15-37) Alanine Aminotransferase (ALT/SGPT) 23U/L (16-63) Alkaline Phosphatase 376U/L (46-116) Creatine Kinase 174U/L (39-308) Creatine Kinase MB (Mass) 2.4ng/mL (0.0-3.6) Creatine Kinase MB Relative Index 1.4% (0-4) Troponin I Quantitative < 0.017ng/mL (0.000-0.055) XT-Dqd-N-Type Natriuretic Peptide 1894pg/mL (0-124) Total Protein 8.2g/dL (6.4-8.2) Albumin 2.2g/dL (3.4-5.0) Albumin/Globulin Ratio 0.4 (1.0-1.7) Influenza Type A Antigen Negative (NEGATIVE) Influenza Type B Antigen Negative (NEGATIVE) Stool Occult Blood Positive (NEG) Test 08/25/16 06:30 08/25/16 16:15 08/26/16 05:50 White Blood Count 14.2x10^3/uL (4.0-11.0) Red Blood Count 2.34x10^6/uL (4.30-5.70) Hemoglobin 7.5g/dL (13.0-17.5) 7.8g/dL (13.0-17.5) Hematocrit 23.0% (39.0-53.0) Mean Corpuscular Volume 98fL (79-100) Mean Corpuscular Hemoglobin 32pg (25-35) Mean Corpuscular Hemoglobin Concent 33g/dL (31-37) Red Cell Distribution Width 16.5% (11.5-14.5) Platelet Count 189x10^3/uL (140-400) Neutrophils (%) (Auto) 74% (31-73) Lymphocytes (%) (Auto) 11% (24-48) Monocytes (%) (Auto) 12% (0-9) Eosinophils (%) (Auto) 3% (0-3) Basophils (%) (Auto) 1% (0-3) Neutrophils # (Auto) 10.6x10^3uL (1.8-7.7) Lymphocytes # (Auto) 1.5x10^3/uL (1.0-4.8) Monocytes # (Auto) 1.7x10^3/uL (0.0-1.1) Eosinophils # (Auto) 0.4x10^3/uL (0.0-0.7) Basophils # (Auto) 0.1x10^3/uL (0.0-0.2) Sodium Level 137mmol/L (136-145) 138mmol/L (136-145) Potassium Level 4.0mmol/L (3.5-5.1) 4.4mmol/L (3.5-5.1) Chloride Level 103mmol/L (98-107) 103mmol/L (98-107) Carbon Dioxide Level 23mmol/L (21-32) 24mmol/L (21-32) Anion Gap 11 (6-14) 11 (6-14) Blood Urea Nitrogen 21mg/dL (8-26) 25mg/dL (8-26) Creatinine 1.8mg/dL (0.7-1.3) 1.7mg/dL (0.7-1.3) Estimated GFR (Cockcroft-Gault) 51.4 54.9 Glucose Level 110mg/dL (70-99) 131mg/dL (70-99) Uric Acid 14.4mg/dL (3.5-7.2) Calcium Level 8.9mg/dL (8.5-10.1) 8.9mg/dL (8.5-10.1) Iron Level 40ug/dL (65-175) Total Iron Binding Capacity 151ug/dL (250-450) Iron Saturation 26% (15-34) Creatine Kinase 142U/L (39-308) Vitamin B12 Level 868pg/mL (247-911) Serum Folate 4.07ng/ml (3.2-20.0) Thyroid Stimulating Hormone (TSH) 7.967uIU/mL (0.358-3.74) Thyroxine (T4) 6.5ug/dL (4.5-12.0) Urine Collection Type Unknown Urine Color Clementina Urine Clarity Clear Urine pH 5.5 Urine Specific [place] 1.010 Urine Protein Negativemg/dL (NEG-TRACE) Urine Glucose (UA) Negativemg/dL (NEG) Urine Ketones (Stick) Negativemg/dL (NEG) Urine Blood Small (NEG) Urine Nitrite Negative (NEG) Urine Bilirubin Negative (NEG) Urine Urobilinogen Dipstick 1.0mg/dL (0.2 mg/dL) Urine Leukocyte Esterase Negative (NEG) Urine RBC 3-5/HPF (0-2) Urine WBC 0/HPF (0-4) Urine Transitional Epithelial Cells Few/LPF Urine Bacteria 0/HPF (0-FEW) Urine Hyaline Casts Moderate/HPF Urine Mucus Slight/LPF Phosphorus Level 4.5mg/dL (2.6-4.7) Magnesium Level 1.8mg/dL (1.8-2.4) Albumin 2.1g/dL (3.4-5.0) Laboratory Tests Test 08/25/16 16:15 08/26/16 05:50 Urine Collection Type Unknown Urine Color Clementina Urine Clarity Clear Urine pH 5.5 Urine Specific [place] 1.010 Urine Protein Negativemg/dL (NEG-TRACE) Urine Glucose (UA) Negativemg/dL (NEG) Urine Ketones (Stick) Negativemg/dL (NEG) Urine Blood Small (NEG) Urine Nitrite Negative (NEG) Urine Bilirubin Negative (NEG) Urine Urobilinogen Dipstick 1.0mg/dL (0.2 mg/dL) Urine Leukocyte Esterase Negative (NEG) Urine RBC 3-5/HPF (0-2) Urine WBC 0/HPF (0-4) Urine Transitional Epithelial Cells Few/LPF Urine Bacteria 0/HPF (0-FEW) Urine Hyaline Casts Moderate/HPF Urine Mucus Slight/LPF Hemoglobin 7.8g/dL (13.0-17.5) Sodium Level 138mmol/L (136-145) Potassium Level 4.4mmol/L (3.5-5.1) Chloride Level 103mmol/L (98-107) Carbon Dioxide Level 24mmol/L (21-32) Anion Gap 11 (6-14) Blood Urea Nitrogen 25mg/dL (8-26) Creatinine 1.7mg/dL (0.7-1.3) Estimated GFR (Cockcroft-Gault) 54.9 Glucose Level 131mg/dL (70-99) Calcium Level 8.9mg/dL (8.5-10.1) Phosphorus Level 4.5mg/dL (2.6-4.7) Magnesium Level 1.8mg/dL (1.8-2.4) Albumin 2.1g/dL (3.4-5.0) Medications Active Scripts Medications Dose Route/Sig Days Date Category Lasix (Furosemide) 20 Mg Tablet 1 Tab PO DAILY 06/11/16 Rx Magnesium Oxide 400 Mg Tablet 1 Tab PO DAILY 06/11/16 Rx Wellbutrin (Bupropion Hcl) 100 Mg Tablet Unknown Dose PO BID 08/14/14 Reported Haloperidol 2 Mg Tablet Unknown Dose PO 08/14/14 Reported Prilosec (Omeprazole) 40 Mg Capsule.dr 40 Mg PO DAILY 08/14/14 Reported [place]forge 5-160 Mg Tablet (Amlodipine/Valsartan) 1 Each Tablet Unknown Dose PO 08/14/[address] CHEST 1. Left greater than right upper lobe groundglass opacity. No pleural effusion is identified. The findings could represent nonspecific infectious or inflammatory process. Asymmetric pulmonary edema is thought less likely, but still possible. 2. Body wall edema. Ascites. 3. Fatty liver disease. 4. Cholelithiasis. Impression . 1. Progressive dyspnea with 80-pound weight gain in last 6 months and with mild interstitial infiltrates in a morbidly obese patient with a BMI of 59. Most likely, this is [id number] cor pulmonale. 2. Suspect chronic renal insufficiency. 3. History of tobaccoism, possible underlying chronic obstructive pulmonary disease. 4. Morbid obesity. Plan . 1. Continue with diuresis. 2. Echocardiogram.reviewed 3. Noncontrast CT chest reviewed. Left greater than right upper lobe ground glass opacity. No pleural effusion is identified. The findings could represent nonspecific infectious or inflammatory process. Asymmetric pulmonary edema is also a possibility but less likely.on steroids/antibiotics 4. Weight loss, strongly emphasized. 5. Follow response diuresis. 6. Improve nutritional status. Albumin level is 2.2. 7. Discussed with Dr. Robins. SOLEDAD SNEED MD Aug 26, 2016 09:49
[2016-08-26 11:00] VITALS: BP 105/62
--- NOTE | 2016-08-26 11:08 | PDOC ---
PALOMA SMITH CABLE REPAIRER 08/26/16 1108: CARDIO Progress Notes Date and Time Date of Service 08/26/16 Time of Evaluation 1105 Subjective Subjective: No Chest Pain, Other ("less swollen" - SOA improved) Vitals Vitals Vital Signs Date Time Temp Pulse Resp B/P Pulse Ox O2 Delivery O2 Flow Rate FiO2 08/26/16 08:00 Nasal Cannula 2.0 08/26/16 07:22 97 08/26/16 07:00 97.8 92 18 100/58 97.8 Weight Weight [ ] Input and Output Intake and Output Intake and Output 08/26/16 07:00 Intake Total 1300 ml Output Total 1900 ml Balance -600 ml Intake Oral 1200 ml IV Total 100 ml Output Urine Total 1900 ml Laboratory Labs Laboratory Tests Test 08/25/16 16:15 08/26/16 05:50 Urine Collection Type Unknown Urine Color Clementina Urine Clarity Clear Urine pH 5.5 Urine Specific [place] 1.010 Urine Protein Negativemg/dL (NEG-TRACE) Urine Glucose (UA) Negativemg/dL (NEG) Urine Ketones (Stick) Negativemg/dL (NEG) Urine Blood Small (NEG) Urine Nitrite Negative (NEG) Urine Bilirubin Negative (NEG) Urine Urobilinogen Dipstick 1.0mg/dL (0.2 mg/dL) Urine Leukocyte Esterase Negative (NEG) Urine RBC 3-5/HPF (0-2) Urine WBC 0/HPF (0-4) Urine Transitional Epithelial Cells Few/LPF Urine Bacteria 0/HPF (0-FEW) Urine Hyaline Casts Moderate/HPF Urine Mucus Slight/LPF Hemoglobin 7.8g/dL (13.0-17.5) Sodium Level 138mmol/L (136-145) Potassium Level 4.4mmol/L (3.5-5.1) Chloride Level 103mmol/L (98-107) Carbon Dioxide Level 24mmol/L (21-32) Anion Gap 11 (6-14) Blood Urea Nitrogen 25mg/dL (8-26) Creatinine 1.7mg/dL (0.7-1.3) Estimated GFR (Cockcroft-Gault) 54.9 Glucose Level 131mg/dL (70-99) Calcium Level 8.9mg/dL (8.5-10.1) Phosphorus Level 4.5mg/dL (2.6-4.7) Magnesium Level 1.8mg/dL (1.8-2.4) Albumin 2.1g/dL (3.4-5.0) Microbiology Micro Microbiology 08/24/16 Blood Culture - Preliminary, Resulted NO GROWTH AFTER 1 DAY Physical Exam HEENT: Neck Supple W Full Motion Chest: Symmetric LUNGS: Other (diminished throughout ) Heart: S1S2, RRR, murmurs (2/6 systolic murmur ), other Abdomen: Soft N/T, Other (ascites) Extremities: Other (2+ bialteral LE edema ) Neurology: alert, oriented, follow commands Assessment Assessment 1. Acute and chronic diastolic heart failure echo revealed normal LV function, PAP 39; technically difficult study due to body habitus good UOP overnight- continue to monitor. Keep I<O may need additional Lasix. 2. Acute respiratory failure multifactorial given diastolic HF, morbid obesity, and ?COPD/ANNA improved with steroids/diuresis per pulm 3. Hypertension controlled without meds hold home antiHTN therapy for now 4. Hyperlipidemia check lipids 5. Anemia + heme stool. liver insuff contributing? further workup per GI 6. elevated LFT in the setting of chronic alcohol use CT with fatty liver GI following 7. DAMION with ?CKD Cr 05/2016~ 1.0 now Cr 1.7 per nephrology 8. hypothyroidism TSH 7.967 tx per PCP 9. chronic alcoholism monitor for withdrawal encouraged cessation 10. Morbid obesity lifestyle/diet modification discussed/encouraged 11. Anxiety/depression/schizophrenia MARANDA GAMINO MD 08/27/16 0744: CARDIO Progress Notes Assessment Assessment Patient seen and examined 08/26/16. Agree with PROM BURN OFF OPERATOR's assessment and plan. Acute on chronic diastolic heart failure better compensated. 2-D echo showed normal LV function with PA pressure 38 mm Hg. Diuretics stopped by nephrology team due to prerenal picture. Albumin level low - consider albumin infusion when diuretics are resumed. PALOMA SMITH APRN Aug 26, 2016 11:08 MARANDA GAMINO MD Aug 27, 2016 07:44
--- NOTE | 2016-08-26 11:25 | PDOC ---
SUBJECTIVE ROS DAMION vs ? CKD III doign and feeling better this am CVS: no Orthopnea, no CP RESP: improved SOB, no KAYE GI: no Nausea, no Vomiting : no Dysuria, no Urgency OBJECTIVE Vital Signs Vital Signs Date Time Temp Pulse Resp B/P Pulse Ox O2 Delivery O2 Flow Rate FiO2 08/26/16 11:05 97 Nasal Cannula 2.0 08/26/16 07:00 97.8 92 18 100/58 97.8 I & 0 Intake and Output 08/26/16 07:00 Intake Total 1300 ml Output Total 1900 ml Balance -600 ml Intake Oral 1200 ml IV Total 100 ml Output Urine Total 1900 ml PHYSICAL EXAM Physical Exam General Appearance: Awake Alert Oriented x 2-3 In no Distress Eyes: VIsion Unchanged Conjunctiva Normal EN: No EN Drainage Mucous Memb. dryish Neck: no JVD no JVP Supple no Thyromegaly; thick neck CVS: S1 S2 no Murmur No Gallop No Rub + Edema Resp: no Rales no Rhonchi no Acc. Muscle use; distal BS GI: BAS +ve NO Bruit Non Tender ? Distended vs Morbidly obese : no CVA tenderness; no Suprapubic Tenderness Assessment & Plan DAMION - with Oliuria - imrpoved with IV NS for now. ? due to diarrhea and pre- renal vs HRS (Joan is pending) Current FLuid and E-lyte status does not necessitate emergent need for Dialysis. watch off of IVF for now.Pre-Renal seems most likely etio. Doubt URic ACid Nephroaphty per se Edema - ? Liver etio related vs due to CCB; I do not feel that his current levels of edema alone explains his reported wt gain, May need RHC for better estimation of fluid status. PA Pressures and LVEDP. some edema due to HypoAlbuminemia for which a trial of IV Alb can be tried in stead of IVF Hypoalbuminemia - ? due to paraprotein related phenomenon vs underproduction from liver etio. Await GI eval of same. No urine losses noted on UA HTN: Current BPs are marginal at best; meds reviewed. See orders for changes. Oliguria - suspect VOl depletion, now better . Check Joan watch off of IVF ^ Protein gap - ? Paraprotein due to infection vs Monoclonal - awiat PEPS Intravascular Vol dpeltion as noted by s/s, reported Oliguria and ^^ Uric Acid - will follow Uric acid trend and UO for nwo Discussed Plan of Care and prognosis etc. at length with Cardio FRONT OFFICE ADMINISTRATOR COMMENT/RELEVANT DATA Meds Current Medications Medications (Trade) Dose Ordered Sig/Jarertt Start Time Stop Time Status Last Admin Dose Admin Albuterol Sulfate (Ventolin Neb Soln) 2.5 mg PRN Q2HR PRN 08/25/16 19:45 Albuterol/ Ipratropium (Duoneb) 3 ml RTQID 08/25/16 20:00 08/26/16 11:05 3 ML Bupropion HCl (Wellbutrin) 100 mg BID 08/24/16 21:00 08/26/16 09:09 100 MG Enoxaparin Sodium (Lovenox 60mg Syringe) 60 mg Q12HR 08/24/16 21:00 08/26/16 09:11 60 MG Enoxaparin Sodium (Lovenox Per Pharmacy Prophylaxis Dosing) 1 each PRN DAILY PRN 08/24/16 16:45 Fentanyl Citrate 50 mcg 50 mcg PRN Q2HR PRN 08/24/16 15:30 08/25/16 15:29 DC Furosemide (Lasix) 40 mg DAILY 08/25/16 14:00 08/25/16 15:07 DC 08/25/16 14:22 40 MG Haloperidol (Haldol) 2 mg HS 08/24/16 21:00 08/25/16 20:19 2 MG Levofloxacin/ Dextrose (LEVAQUIN 500mg PREMIX) 100 ml @ 100 mls/hr Q24H 08/24/16 16:00 08/25/16 15:57 100 MLS/HR Levofloxacin/ Dextrose 1 each 1 each PRN DAILY PRN 08/24/16 15:30 Lorazepam (Ativan) 1 mg DAILY 08/25/16 14:15 08/26/16 09:09 1 MG Magnesium Oxide (Magnesium Oxide) 400 mg DAILY 08/25/16 09:00 08/26/16 09:09 400 MG Magnesium Sulfate/ Dextrose (Magnesium Sulfate PREMIX 2GM) 50 ml @ 25 mls/hr PRN DAILY PRN 08/25/16 15:15 Methylprednisolone Sodium Succinate 40 mg 40 mg Q8HRS 08/25/16 15:00 08/26/16 05:22 40 MG Nicotine (Nicoderm Cq 21mg) 1 patch PRN DAILY PRN 08/24/16 16:15 08/24/16 17:56 1 PATCH Nicotine Polacrilex (Nicorette Gum) 1 each PRN Q1HR PRN 08/24/16 16:15 Non-Formulary Medication 40 mg DAILY 08/25/16 09:00 UNV Ondansetron HCl (Zofran) 4 mg PRN Q8HRS PRN 08/24/16 15:30 08/25/16 15:29 DC Pantoprazole Sodium (Protonix Vial) 40 mg 1X ONCE 08/24/16 16:15 08/24/16 16:17 DC 08/24/16 17:57 40 MG Pantoprazole Sodium (Protonix) 40 mg BID 08/24/16 21:00 08/26/16 09:09 40 MG Sodium Chloride 500 ml @ 0 mls/hr PRN QID PRN 08/25/16 15:15 Sodium Chloride (Iv Sodium Chloride 0.9% 1000ml Bag) 1,000 ml @ 100 mls/hr Q10H 08/24/16 16:00 08/25/16 15:59 DC 08/24/16 17:57 100 MLS/HR Thiamine HCl (Vitamin B-1) 100 mg DAILY 08/25/16 14:15 08/26/16 09:09 100 MG Vitamin B Complex (Folbic Tablet) 1 tab DAILY 08/26/16 09:00 08/26/16 09:09 1 TAB Lab Laboratory Tests Test 08/25/16 16:15 08/26/16 05:50 Urine Collection Type Unknown Urine Color Clementina Urine Clarity Clear Urine pH 5.5 Urine Specific [place] 1.010 Urine Protein Negativemg/dL (NEG-TRACE) Urine Glucose (UA) Negativemg/dL (NEG) Urine Ketones (Stick) Negativemg/dL (NEG) Urine Blood Small (NEG) Urine Nitrite Negative (NEG) Urine Bilirubin Negative (NEG) Urine Urobilinogen Dipstick 1.0mg/dL (0.2 mg/dL) Urine Leukocyte Esterase Negative (NEG) Urine RBC 3-5/HPF (0-2) Urine WBC 0/HPF (0-4) Urine Transitional Epithelial Cells Few/LPF Urine Bacteria 0/HPF (0-FEW) Urine Hyaline Casts Moderate/HPF Urine Mucus Slight/LPF Hemoglobin 7.8g/dL (13.0-17.5) Sodium Level 138mmol/L (136-145) Potassium Level 4.4mmol/L (3.5-5.1) Chloride Level 103mmol/L (98-107) Carbon Dioxide Level 24mmol/L (21-32) Anion Gap 11 (6-14) Blood Urea Nitrogen 25mg/dL (8-26) Creatinine 1.7mg/dL (0.7-1.3) Estimated GFR (Cockcroft-Gault) 54.9 Glucose Level 131mg/dL (70-99) Calcium Level 8.9mg/dL (8.5-10.1) Phosphorus Level 4.5mg/dL (2.6-4.7) Magnesium Level 1.8mg/dL (1.8-2.4) Albumin 2.1g/dL (3.4-5.0) LIZBET PEARL MD Aug 26, 2016 11:25
[2016-08-26] MEDS: NICOTINE 21MG PATCH. TD PRN (11:52)
--- NOTE | 2016-08-26 13:53 | PDOC ---
PROGRESS NOTES Chief Complaint Chief Complaint dyspnea, tachypnea, wheeze, SIRS Acute exacerbation of diastolic CHF, consider cor pulmonale pickwickian, obesity hypovent tobaccoism morbid Obesity, BMI 59 w/ ongoing mod/severe malnutrition, will check urine protein CKD 3 anemia, heme + stool, repeat HGb, IV PPI and PO BId, consult GI to follow anxiety, depression, schizotypal History of Present Illness History of Present Illness Le edema a little improved still weak and lethargic 24 hour urine pending Vitals Vitals Vital Signs Date Time Temp Pulse Resp B/P Pulse Ox O2 Delivery O2 Flow Rate FiO2 08/26/16 11:05 97 Nasal Cannula 2.0 08/26/16 11:00 97.6 92 20 105/62 97.6 Physical Exam General: Alert, Oriented X3, Cooperative, No acute distress Heart: Regular rate, Normal S1, Normal S2, Other (2/6 systolic murmur ) Lungs: Other (few ant rhonchi) Abdomen: Soft, Other (ascites ) Extremities: Normal pulses, Other (2+ bilateral LE edema , diffuse thickening of pretibial skin) Skin: No breakdown, No significant lesion Labs LABS Laboratory Tests Test 08/25/16 16:15 08/26/16 05:50 Urine Collection Type Unknown Urine Color Clementina Urine Clarity Clear Urine pH 5.5 Urine Specific [place] 1.010 Urine Protein Negativemg/dL (NEG-TRACE) Urine Glucose (UA) Negativemg/dL (NEG) Urine Ketones (Stick) Negativemg/dL (NEG) Urine Blood Small (NEG) Urine Nitrite Negative (NEG) Urine Bilirubin Negative (NEG) Urine Urobilinogen Dipstick 1.0mg/dL (0.2 mg/dL) Urine Leukocyte Esterase Negative (NEG) Urine RBC 3-5/HPF (0-2) Urine WBC 0/HPF (0-4) Urine Transitional Epithelial Cells Few/LPF Urine Bacteria 0/HPF (0-FEW) Urine Hyaline Casts Moderate/HPF Urine Mucus Slight/LPF Hemoglobin 7.8g/dL (13.0-17.5) Sodium Level 138mmol/L (136-145) Potassium Level 4.4mmol/L (3.5-5.1) Chloride Level 103mmol/L (98-107) Carbon Dioxide Level 24mmol/L (21-32) Anion Gap 11 (6-14) Blood Urea Nitrogen 25mg/dL (8-26) Creatinine 1.7mg/dL (0.7-1.3) Estimated GFR (Cockcroft-Gault) 54.9 Glucose Level 131mg/dL (70-99) Calcium Level 8.9mg/dL (8.5-10.1) Phosphorus Level 4.5mg/dL (2.6-4.7) Magnesium Level 1.8mg/dL (1.8-2.4) Albumin 2.1g/dL (3.4-5.0) Assessment and Plan Assessmemt and Plan Problems Medical Problems: (1) Anasarca Status: Acute (2) Anemia Status: Acute (3) Community acquired pneumonia Status: Acute (4) Congestive heart failure Status: Acute (5) Severe protein-calorie malnutrition Status: Acute Problems: Comment Review of Relevant I have reviewed the following items maci (where applicable) has been applied. Labs Laboratory Tests Test 08/24/16 19:40 08/25/16 06:30 08/25/16 16:15 08/26/16 05:50 White Blood Count 15.3x10^3/uL (4.0-11.0) 14.2x10^3/uL (4.0-11.0) Red Blood Count 2.62x10^6/uL (4.30-5.70) 2.34x10^6/uL (4.30-5.70) Hemoglobin 8.3g/dL (13.0-17.5) 7.5g/dL (13.0-17.5) 7.8g/dL (13.0-17.5) Hematocrit 25.8% (39.0-53.0) 23.0% (39.0-53.0) Mean Corpuscular Volume 99fL (79-100) 98fL (79-100) Mean Corpuscular Hemoglobin 32pg (25-35) 32pg (25-35) Mean Corpuscular Hemoglobin Concent 32g/dL (31-37) 33g/dL (31-37) Red Cell Distribution Width 16.6% (11.5-14.5) 16.5% (11.5-14.5) Platelet Count 218x10^3/uL (140-400) 189x10^3/uL (140-400) Neutrophils (%) (Auto) 74% (31-73) Lymphocytes (%) (Auto) 11% (24-48) Monocytes (%) (Auto) 12% (0-9) Eosinophils (%) (Auto) 3% (0-3) Basophils (%) (Auto) 1% (0-3) Neutrophils # (Auto) 10.6x10^3uL (1.8-7.7) Lymphocytes # (Auto) 1.5x10^3/uL (1.0-4.8) Monocytes # (Auto) 1.7x10^3/uL (0.0-1.1) Eosinophils # (Auto) 0.4x10^3/uL (0.0-0.7) Basophils # (Auto) 0.1x10^3/uL (0.0-0.2) Sodium Level 137mmol/L (136-145) 138mmol/L (136-145) Potassium Level 4.0mmol/L (3.5-5.1) 4.4mmol/L (3.5-5.1) Chloride Level 103mmol/L (98-107) 103mmol/L (98-107) Carbon Dioxide Level 23mmol/L (21-32) 24mmol/L (21-32) Anion Gap 11 (6-14) 11 (6-14) Blood Urea Nitrogen 21mg/dL (8-26) 25mg/dL (8-26) Creatinine 1.8mg/dL (0.7-1.3) 1.7mg/dL (0.7-1.3) Estimated GFR (Cockcroft-Gault) 51.4 54.9 Glucose Level 110mg/dL (70-99) 131mg/dL (70-99) Uric Acid 14.4mg/dL (3.5-7.2) Calcium Level 8.9mg/dL (8.5-10.1) 8.9mg/dL (8.5-10.1) Iron Level 40ug/dL (65-175) Total Iron Binding Capacity 151ug/dL (250-450) Iron Saturation 26% (15-34) Creatine Kinase 142U/L (39-308) Vitamin B12 Level 868pg/mL (247-911) Serum Folate 4.07ng/ml (3.2-20.0) Thyroid Stimulating Hormone (TSH) 7.967uIU/mL (0.358-3.74) Thyroxine (T4) 6.5ug/dL (4.5-12.0) Urine Collection Type Unknown Urine Color Clementina Urine Clarity Clear Urine pH 5.5 Urine Specific [place] 1.010 Urine Protein Negativemg/dL (NEG-TRACE) Urine Glucose (UA) Negativemg/dL (NEG) Urine Ketones (Stick) Negativemg/dL (NEG) Urine Blood Small (NEG) Urine Nitrite Negative (NEG) Urine Bilirubin Negative (NEG) Urine Urobilinogen Dipstick 1.0mg/dL (0.2 mg/dL) Urine Leukocyte Esterase Negative (NEG) Urine RBC 3-5/HPF (0-2) Urine WBC 0/HPF (0-4) Urine Transitional Epithelial Cells Few/LPF Urine Bacteria 0/HPF (0-FEW) Urine Hyaline Casts Moderate/HPF Urine Mucus Slight/LPF Phosphorus Level 4.5mg/dL (2.6-4.7) Magnesium Level 1.8mg/dL (1.8-2.4) Albumin 2.1g/dL (3.4-5.0) Laboratory Tests Test 08/25/16 16:15 08/26/16 05:50 Urine Collection Type Unknown Urine Color Clementina Urine Clarity Clear Urine pH 5.5 Urine Specific [place] 1.010 Urine Protein Negativemg/dL (NEG-TRACE) Urine Glucose (UA) Negativemg/dL (NEG) Urine Ketones (Stick) Negativemg/dL (NEG) Urine Blood Small (NEG) Urine Nitrite Negative (NEG) Urine Bilirubin Negative (NEG) Urine Urobilinogen Dipstick 1.0mg/dL (0.2 mg/dL) Urine Leukocyte Esterase Negative (NEG) Urine RBC 3-5/HPF (0-2) Urine WBC 0/HPF (0-4) Urine Transitional Epithelial Cells Few/LPF Urine Bacteria 0/HPF (0-FEW) Urine Hyaline Casts Moderate/HPF Urine Mucus Slight/LPF Hemoglobin 7.8g/dL (13.0-17.5) Sodium Level 138mmol/L (136-145) Potassium Level 4.4mmol/L (3.5-5.1) Chloride Level 103mmol/L (98-107) Carbon Dioxide Level 24mmol/L (21-32) Anion Gap 11 (6-14) Blood Urea Nitrogen 25mg/dL (8-26) Creatinine 1.7mg/dL (0.7-1.3) Estimated GFR (Cockcroft-Gault) 54.9 Glucose Level 131mg/dL (70-99) Calcium Level 8.9mg/dL (8.5-10.1) Phosphorus Level 4.5mg/dL (2.6-4.7) Magnesium Level 1.8mg/dL (1.8-2.4) Albumin 2.1g/dL (3.4-5.0) Microbiology 08/24/16 Blood Culture - Preliminary, Resulted NO GROWTH AFTER 1 DAY Medications Current Medications Albuterol/ Ipratropium (Duoneb) 6 ml 1X ONCE NEB Last administered on 13:11; Start 08/24/16 at 13:30; Stop 08/24/16 at 13:31; Status DC Albuterol Sulfate (Ventolin Neb Soln) 2.5 mg STK-MED ONCE .ROUTE ; Start at 13:06; Stop 08/24/16 at 13:07; Status DC Albuterol/ Ipratropium (Duoneb) 3 ml STK-MED ONCE .ROUTE ; Start 08/24/16 at 13: 06; Stop 08/24/16 at 13:07; Status DC Ondansetron HCl (Zofran) 4 mg PRN Q8HRS PRN IV NAUSEA/VOMITING; Start 08/24/16 at 15:30; Stop 08/25/16 at 15:29; Status DC Fentanyl Citrate 50 mcg 50 mcg PRN Q2HR PRN IV PAIN; Start 08/24/16 at 15:30; Stop 08/25/16 at 15:29; Status DC Sodium Chloride (Iv Sodium Chloride 0.9% 1000ml Bag) 1,000 ml @ 100 mls/hr Q10H IV Last administered on 08/24/16 17:57; Start 08/24/16 at 16:00; Stop at 15:59; Status DC Albuterol/ Ipratropium (Duoneb) 3 ml RTQID NEB Last administered on 08/25/16 15 :02; Start 08/24/16 at 16:00; Stop 08/25/16 at 15:59; Status DC Levofloxacin/ Dextrose 1 each 1 each PRN DAILY PRN MC SEE COMMENTS; Start at 15:30 Levofloxacin/ Dextrose (LEVAQUIN 500mg PREMIX) 100 ml @ 100 mls/hr Q24H IV Last administered on 08/25/16 15:57; Start 08/24/16 at 16:00 Nicotine (Nicoderm Cq 21mg) 1 patch PRN DAILY PRN TD SMOKING CESSATION Last administered on 08/26/16 11:52; Start 08/24/16 at 16:15 Nicotine Polacrilex (Nicorette Gum) 1 each PRN Q1HR PRN BC SMOKING CESSATION; Start 08/24/16 at 16:15 Pantoprazole Sodium (Protonix Vial) 40 mg 1X ONCE IVP Last administered on 08/24 17:57; Start 08/24/16 at 16:15; Stop 08/24/16 at 16:17; Status DC Pantoprazole Sodium (Protonix) 40 mg BID PO Last administered on 08/26/16 09:09 ; Start 08/24/16 at 21:00 Bupropion HCl (Wellbutrin) 100 mg BID PO Last administered on 08/26/16 09:09; Start 08/24/16 at 21:00 Furosemide (Lasix) 20 mg DAILY PO Last administered on 08/25/16 08:19; Start at 17:00; Stop 08/25/16 at 13:03; Status DC Haloperidol (Haldol) 2 mg HS PO Last administered on 08/25/16 20:19; Start 08/24 at 21:00 Magnesium Oxide (Magnesium Oxide) 400 mg DAILY PO Last administered on 09:09; Start 08/25/16 at 09:00 Non-Formulary Medication 40 mg DAILY PO ; Start 08/25/16 at 09:00; Status UNV Enoxaparin Sodium (Lovenox Per Pharmacy Prophylaxis Dosing) 1 each PRN DAILY PRN MC SEE COMMENTS; Start 08/24/16 at 16:45 Furosemide (Lasix) 80 mg 1X ONCE IVP Last administered on 08/24/16 17:57; Start 08/24/16 at 17:00; Stop 08/24/16 at 17:01; Status DC Enoxaparin Sodium (Lovenox 60mg Syringe) 60 mg Q12HR SQ Last administered on 09:11; Start 08/24/16 at 21:00 Furosemide (Lasix) 40 mg DAILY IVP Last administered on 08/25/16 14:22; Start 08/25/16 at 14:00; Stop 08/25/16 at 15:07; Status DC Thiamine HCl (Vitamin B-1) 100 mg DAILY PO Last administered on 08/26/16 09:09 ; Start 08/25/16 at 14:15 Vitamin B Complex (Folbic Tablet) 1 tab DAILY PO Last administered on 08/26/16 09:09; Start 08/26/16 at 09:00 Lorazepam (Ativan) 2 mg PRN Q1HR PRN IV For CIWA 8-14; Start 08/25/16 at 14:15 Lorazepam (Ativan) 4 mg PRN Q1HR PRN IV For CIWA 15 or greater; Start 08/25/16 at 14:15 Lorazepam (Ativan) 1 mg DAILY PO Last administered on 08/26/16 09:09; Start 08/25/16 at 14:15 Methylprednisolone Sodium Succinate 40 mg 40 mg Q8HRS IV Last administered on 05:22; Start 08/25/16 at 15:00 Sodium Chloride 500 ml @ 0 mls/hr PRN QID PRN IV UO< 30cc/hr over previous 6hrs ; Start 08/25/16 at 15:15 Magnesium Sulfate/ Dextrose (Magnesium Sulfate PREMIX 2GM) 50 ml @ 25 mls/hr PRN DAILY PRN IV for Mag < 1.7 on am labs; Start 08/25/16 at 15:15 Albuterol/ Ipratropium (Duoneb) 3 ml RTQID NEB Last administered on 08/26/16 11 :05; Start 08/25/16 at 20:00 Albuterol Sulfate (Ventolin Neb Soln) 2.5 mg PRN Q2HR PRN NEB SHORTNESS OF BREATH; Start 08/25/16 at 19:45 Active Scripts Active Lasix (Furosemide) 20 Mg Tablet 1 Tab PO DAILY Magnesium Oxide 400 Mg Tablet 1 Tab PO DAILY Reported Wellbutrin (Bupropion Hcl) 100 Mg Tablet Unknown Dose PO BID Haloperidol 2 Mg Tablet Unknown Dose PO Prilosec (Omeprazole) 40 Mg Capsule.dr 40 Mg PO DAILY Exforge 5-160 Mg Tablet (Amlodipine/Valsartan) 1 Each Tablet Unknown Dose PO Vitals/I & O Vital Sign - Last 24 Hours 08/25/16 08/25/16 08/25/16 08/25/16 15:00 15:02 19:00 19:48 Temp 98.6 98.1 98.6 98.1 Pulse 92 103 Resp 18 20 B/P 114/61 128/77 Pulse Ox 98 95 98 O2 Delivery Nasal Cannula Nasal Cannula Nasal Cannula Nasal Cannula O2 Flow Rate 2.0 2.0 2.0 08/25/16 08/25/16 08/25/16 08/25/16 20:00 23:00 23:00 23:00 Temp 98.4 98.4 Pulse 93 96 100 Resp 20 B/P 122/73 118/72 110/67 Pulse Ox 92 O2 Delivery Nasal Cannula Nasal Cannula O2 Flow Rate 2.0 08/26/16 08/26/16 08/26/16 08/26/16 03:07 07:00 07:22 08:00 Temp 98.6 97.8 98.6 97.8 Pulse 92 92 Resp 20 18 B/P 113/68 100/58 Pulse Ox 93 93 97 O2 Delivery Nasal Cannula Nasal Cannula Nasal Cannula Nasal Cannula O2 Flow Rate 2.0 2.0 08/26/16 08/26/16 11:00 11:05 Temp 97.6 97.6 Pulse 92 Resp 20 B/P 105/62 Pulse Ox 97 97 O2 Delivery Nasal Cannula Nasal Cannula O2 Flow Rate 2.0 2.0 Intake and Output 08/25/16 08/25/16 08/26/16 15:00 23:00 07:00 Intake Total 460 ml 840 ml Output Total 900 ml 1000 ml Balance -440 ml -160 ml RESHMA FRANKEL MD Aug 26, 2016 13:53
--- NOTE | 2016-08-26 14:22 | PDOC ---
Subjective: Subjective: Doing a little better today. No specific GI complaints. Objective: Objective: Per RN - no bleeding. Vital Signs: Vital Signs Date Time Temp Pulse Resp B/P Pulse Ox O2 Delivery O2 Flow Rate FiO2 08/26/16 11:05 97 Nasal Cannula 2.0 08/26/16 11:00 97.6 92 20 105/62 97.6 Labs: Laboratory Tests Test 08/25/16 16:15 08/26/16 05:50 Urine Collection Type Unknown Urine Color Clementina Urine Clarity Clear Urine pH 5.5 Urine Specific [place] 1.010 Urine Protein Negativemg/dL Urine Glucose (UA) Negativemg/dL Urine Ketones (Stick) Negativemg/dL Urine Blood Small Urine Nitrite Negative Urine Bilirubin Negative Urine Urobilinogen Dipstick 1.0mg/dL Urine Leukocyte Esterase Negative Urine RBC 3-5/HPF Urine WBC 0/HPF Urine Transitional Epithelial Cells Few/LPF Urine Bacteria 0/HPF Urine Hyaline Casts Moderate/HPF Urine Mucus Slight/LPF Hemoglobin 7.8g/dL Sodium Level 138mmol/L Potassium Level 4.4mmol/L Chloride Level 103mmol/L Carbon Dioxide Level 24mmol/L Anion Gap 11 Blood Urea Nitrogen 25mg/dL Creatinine 1.7mg/dL Estimated GFR (Cockcroft-Gault) 54.9 Glucose Level 131mg/dL Calcium Level 8.9mg/dL Phosphorus Level 4.5mg/dL Magnesium Level 1.8mg/dL Albumin 2.1g/dL Imaging: Abd US 08/25/16 IMPRESSION: 1. Cholelithiasis with moderate associated gallbladder wall thickening. This mural thickening can be due to a variety of causes including cholecystitis, liver disease, hypoproteinemia or renal disease. 2. Hepatomegaly with increased hepatic echogenicity compatible with hepatic steatosis. 3. Heterogeneous echogenicity in the superior aspect of the right hepatic lobe is likely due to patchy fatty infiltration, although a hepatic mass cannot be excluded. 4. Small volume of ascites. Chest CT 08/25/16 Impression: 1. Left greater than right upper lobe groundglass opacity. No pleural effusion is identified. The findings could represent nonspecific infectious or inflammatory process. Asymmetric pulmonary edema is thought less likely, but still possible. 2. Body wall edema. Ascites. 3. Fatty liver disease. 4. Cholelithiasis. PE: GEN: NAD, was asleep LUNGS: diminished, nasal cannula HEART: RRR ABD: obese, non-tender EXTREMITY: BLE edema NEURO/PSYCH: A & O 3 A/P: Anemia, heme positive stool -h/o PUD (NSAID), on PPI BID -?chronic disease - iron and TIBC low, B12 and folate WNL -Hgb 8 to 7.8 -h/o occasional rectal bleeding w/ change in bowel habits Abnormal LFTs -Hepatitis panel pending -h/o alcohol abuse, on thiamine -US: cholelithiasis w/ GB wall thickening, hepatic steatosis DAMION, heart and resp failure -cardio, pulm, renal following -- Will review w/ Dr. Garcia. STEFANY LLANOS Aug 26, 2016 14:21
[2016-08-26 15:00] VITALS: BP 105/77
[2016-08-26 16:22] LABS: HEP A IGM ABDY Negative (Negative)
[2016-08-26 19:00] VITALS: BP 133/73
[2016-08-26] MEDS: HALOPERIDOL 2 MG TABLET. PO SCH (20:47)
[2016-08-26 23:00] VITALS: BP 106/64
[2016-08-27] MEDS: methylPREDNISolone SOD SUCC PF 40 MG/ML VIAL. IV SCH ×3 (05:11→20:06)
[2016-08-27 05:32] LABS: ALBUMIN 2.2 g/dL (3.4-5.0); CALCIUM 8.9 mg/dL (8.5-10.1); CREATININE 1.7 mg/dL (0.7-1.3); GFR 54.9; PHOSPHORUS 4.3 mg/dL (2.6-4.7); POTASSIUM 4.5 mmol/L (3.5-5.1)
[2016-08-27 05:45] LABS: CHOLESTEROL/HDL RATIO 6.9
[2016-08-27 07:00] VITALS: BP 123/79
[2016-08-27] MEDS: IPRATRPIUM/ALBUTEROL 0.5/2.5MG 3 ML NEBU. NEB SCH ×4 (07:10→19:49)
[2016-08-27] MEDS: MAGNESIUM OXIDE 400 MG TABLET PO SCH (07:57)
[2016-08-27] MEDS: buPROPion 100 MG TABLET PO SCH ×2 (07:57→20:06)
[2016-08-27] MEDS: LORAZEPAM 1 MG TABLET. PO SCH (07:57)
[2016-08-27] MEDS: VITAMIN B12,B9,B6 COMPLEX 1 TABLET. PO SCH (07:57)
[2016-08-27] MEDS: THIAMINE 100 MG TABLET. PO SCH (07:57)
[2016-08-27] MEDS: PANTOPRAZOLE 40 MG TABLET.DR. PO SCH ×2 (07:58→20:06)
[2016-08-27 11:24] LABS: KAPPA LAMBDA RATIO 2.48 (0.26-1.65)
--- NOTE | 2016-08-27 11:53 | PDOC ---
CARDIO Progress Notes Date and Time Date of Service 08/27/16 Time of Evaluation 1105 Subjective Subjective: No Chest Pain, No Palpitations, Other (bilateral LE swelling improved, but persistes- SOA improved. Having cough) Vitals Vitals Vital Signs Date Time Temp Pulse Resp B/P Pulse Ox O2 Delivery O2 Flow Rate FiO2 08/27/16 08:00 Nasal Cannula 2.0 08/27/16 07:11 98 08/27/16 07:00 97.7 89 22 123/79 97.7 Weight Weight [ ] Input and Output Intake and Output Intake and Output 08/27/16 07:00 Intake Total 3220 ml Output Total 2150 ml Balance 1070 ml Intake Oral 3020 ml IV Total 200 ml Output Urine Total 2150 ml Laboratory Labs Laboratory Tests Test 08/27/16 04:55 Sodium Level 138mmol/L (136-145) Potassium Level 4.5mmol/L (3.5-5.1) Chloride Level 104mmol/L (98-107) Carbon Dioxide Level 24mmol/L (21-32) Anion Gap 10 (6-14) Blood Urea Nitrogen 36mg/dL (8-26) Creatinine 1.7mg/dL (0.7-1.3) Estimated GFR (Cockcroft-Gault) 54.9 Glucose Level 125mg/dL (70-99) Calcium Level 8.9mg/dL (8.5-10.1) Phosphorus Level 4.3mg/dL (2.6-4.7) Magnesium Level 2.1mg/dL (1.8-2.4) Albumin 2.2g/dL (3.4-5.0) Triglycerides Level 84mg/dL (0-150) Cholesterol Level 200mg/dL (0-200) LDL Cholesterol, Calculated 154mg/dL (0-100) VLDL Cholesterol, Calculated 17mg/dL (0-40) HDL Cholesterol 29mg/dL (40-60) Cholesterol/HDL Ratio 6.9 Microbiology Micro Microbiology 08/24/16 Blood Culture - Preliminary, Resulted NO GROWTH AFTER 2 DAYS Physical Exam HEENT: Neck Supple W Full Motion Chest: Symmetric LUNGS: Other (diminished throughout ) Heart: S1S2, RRR, murmurs (2/6 systolic murmur ), other Abdomen: Soft N/T, Other (obesity, ascites) Extremities: 2+ Dorsalis Pedis, Other (2+ bialteral LE edema; more pronounced in thigh area) Neurology: alert, oriented, follow commands Assessment Assessment 1. Acute and chronic diastolic heart failure echo revealed normal LV function; PAP 39 better compensated diuretics on hold; defer resumption to nephrology 2. Acute respiratory failure multifactorial improved per pulm 3. Hypertension controlled without meds hold home antiHTN therapy 4. Hyperlipidemia LDL 154 defer initiation of statin at this time with abnormal LFTs 5. Anemia + heme stool. hgb 7.8 per GI 6. abnormal LFTs in the setting of chronic alcohol use US with hepatic steatosis and cholelithiasis GI following 7. DAMION with ?CKD per nephrology 8. hypothyroidism TSH 7.967 tx per PCP 9. chronic alcoholism monitor for withdrawal 10. Morbid obesity lifestyle/diet modification 11. Protein malnutrition albumin 2.2 12. Anasarca contributing liver and renal dysfunction? elevated lyte chains- ? amyloidosis PALOMA SMITH APRN Aug 27, 2016 11:53
--- NOTE | 2016-08-27 12:45 | PDOC ---
Subjective: Subjective: Feeling a little better. Less SOA but has cough. BM last night w/o bleeding. Eating well. Objective: Objective: No GI concerns per RN. Vital Signs: Vital Signs Date Time Temp Pulse Resp B/P Pulse Ox O2 Delivery O2 Flow Rate FiO2 08/27/16 12:01 98 Nasal Cannula 2.0 08/27/16 07:00 97.7 89 22 123/79 97.7 Labs: Laboratory Tests Test 08/27/16 04:55 Sodium Level 138mmol/L Potassium Level 4.5mmol/L Chloride Level 104mmol/L Carbon Dioxide Level 24mmol/L Anion Gap 10 Blood Urea Nitrogen 36mg/dL Creatinine 1.7mg/dL Estimated GFR (Cockcroft-Gault) 54.9 Glucose Level 125mg/dL Calcium Level 8.9mg/dL Phosphorus Level 4.3mg/dL Magnesium Level 2.1mg/dL Albumin 2.2g/dL Triglycerides Level 84mg/dL Cholesterol Level 200mg/dL LDL Cholesterol, Calculated 154mg/dL VLDL Cholesterol, Calculated 17mg/dL HDL Cholesterol 29mg/dL Cholesterol/HDL Ratio 6.9 PE: GEN: NAD, up to chair, empty lunch tray LUNGS: diminished, dry cough HEART: RRR +murm ABD: obese, non-tender NEURO/PSYCH: A & O 3 A/P: Anemia, heme positive stool -h/o PUD (NSAID), on PPI BID -iron and TIBC low, B12 and folate WNL -Hgb stable in 7s -h/o occasional rectal bleeding (prior to admission) w/ change in bowel habits Abnormal LFTs (last checked 08/24) -Hepatitis panel neg -h/o alcohol abuse, on thiamine -US: cholelithiasis w/ GB wall thickening, hepatic steatosis DAMION, heart and resp failure -cardio, pulm, renal following Elevated TSH -per primary -- Stable Hgb w/o obvious bleeding. EGD/colonoscopy at some point when CV/pulm/renal status improved. STEFANY LLANOS Aug 27, 2016 12:45
--- NOTE | 2016-08-27 14:18 | PDOC ---
SUBJECTIVE ROS DAMION Doing OK overall, breathing better today CVS: no Orthopnea, no CP RESP: no SOB, min KAYE GI: no Nausea, no Vomiting : no Dysuria, no Urgency OBJECTIVE Vital Signs Vital Signs Date Time Temp Pulse Resp B/P Pulse Ox O2 Delivery O2 Flow Rate FiO2 08/27/16 12:01 98 Nasal Cannula 2.0 08/27/16 07:00 97.7 89 22 123/79 97.7 I & 0 Intake and Output 08/27/16 07:00 Intake Total 3220 ml Output Total 2150 ml Balance 1070 ml Intake Oral 3020 ml IV Total 200 ml Output Urine Total 2150 ml PHYSICAL EXAM Physical Exam General Appearance: Awake Alert Oriented x 2-3 In no Distress Eyes: VIsion Unchanged Conjunctiva Normal EN: No EN Drainage Mucous Memb. moist Neck: no JVD no JVP Supple no Thyromegaly; thick neck CVS: S1 S2 no Murmur No Gallop No Rub + Edema (Brawny) Resp: no Rales no Rhonchi no Acc. Muscle use; distal BS GI: BS +ve NO Bruit Non Tender ? Distended vs Morbidly obese : no CVA tenderness; no Suprapubic Tenderness Assessment & Plan DAMION - improved with IV NS for now. ? ATN since Joan is 66 vs ^ed Joan since pt was on lasix at home. Currently non-oliguric so not repeated. Current FLuid and E-lyte status does not necessitate emergent need for Dialysis. watch off of IVF for now.Pre-Renal seems most likely etio. Doubt Uric Acid Nephropathy per se Oliguria - improved forn ow Edema - ? Liver etio related vs due to CCB; I do not feel that his current levels of edema alone explains his reported wt gain, May need RHC for better estimation of fluid status, PA Pressures and LVEDP. some edema due to Hypoalbuminemia for which a trial of IV Alb can be tried in stead of IVF (once Paraproteinemia is rueld ut) - ? Amyloid related? Hypoalbuminemia - ? due to paraprotein related phenomenon vs underproduction from liver etio. Await GI eval of same. No urineproteinr losses noted on UA/ ratio HTN: Current BPs are marginal at best; meds reviewed. See orders for changes. ^ Protein gap - ? Paraprotein due to infection vs Monoclonal - await PEPS ^^ Uric Acid - will follow Uric acid trend and UO for nwo af ter IVF Discussed Plan of Care and prognosis etc. at length with Cardio RADIOGRAPHIC TECHNOLOGIST COMMENT/RELEVANT DATA Meds Current Medications Medications (Trade) Dose Ordered Sig/Jarrett Start Time Stop Time Status Last Admin Dose Admin Albuterol Sulfate (Ventolin Neb Soln) 2.5 mg PRN Q2HR PRN 08/25/16 19:45 Albuterol/ Ipratropium (Duoneb) 3 ml RTQID 08/25/16 20:00 08/27/16 12:01 3 ML Bupropion HCl (Wellbutrin) 100 mg BID 08/24/16 21:00 08/27/16 07:57 100 MG Enoxaparin Sodium (Lovenox 60mg Syringe) 60 mg Q12HR 08/24/16 21:00 08/27/16 07:59 60 MG Enoxaparin Sodium (Lovenox Per Pharmacy Prophylaxis Dosing) 1 each PRN DAILY PRN 08/24/16 16:45 Fentanyl Citrate 50 mcg 50 mcg PRN Q2HR PRN 08/24/16 15:30 08/25/16 15:29 DC Furosemide (Lasix) 40 mg DAILY 08/25/16 14:00 08/25/16 15:07 DC 08/25/16 14:22 40 MG Haloperidol (Haldol) 2 mg HS 08/24/16 21:00 08/26/16 20:47 2 MG Levofloxacin/ Dextrose (LEVAQUIN 500mg PREMIX) 100 ml @ 100 mls/hr Q24H 08/24/16 16:00 08/26/16 16:46 100 MLS/HR Levofloxacin/ Dextrose 1 each 1 each PRN DAILY PRN 08/24/16 15:30 Lorazepam (Ativan) 1 mg DAILY 08/25/16 14:15 08/27/16 07:57 1 MG Magnesium Oxide (Magnesium Oxide) 400 mg DAILY 08/25/16 09:00 08/27/16 07:57 400 MG Magnesium Sulfate/ Dextrose (Magnesium Sulfate PREMIX 2GM) 50 ml @ 25 mls/hr PRN DAILY PRN 08/25/16 15:15 Methylprednisolone Sodium Succinate 40 mg 40 mg Q8HRS 08/25/16 15:00 08/27/16 05:11 40 MG Nicotine (Nicoderm Cq 21mg) 1 patch PRN DAILY PRN 08/24/16 16:15 08/26/16 11:52 1 PATCH Nicotine Polacrilex (Nicorette Gum) 1 each PRN Q1HR PRN 08/24/16 16:15 Non-Formulary Medication 40 mg DAILY 08/25/16 09:00 UNV Ondansetron HCl (Zofran) 4 mg PRN Q8HRS PRN 08/24/16 15:30 08/25/16 15:29 DC Pantoprazole Sodium (Protonix Vial) 40 mg 1X ONCE 08/24/16 16:15 08/24/16 16:17 DC 08/24/16 17:57 40 MG Pantoprazole Sodium (Protonix) 40 mg BID 08/24/16 21:00 08/27/16 07:58 40 MG Sodium Chloride 500 ml @ 0 mls/hr PRN QID PRN 08/25/16 15:15 Sodium Chloride (Iv Sodium Chloride 0.9% 1000ml Bag) 1,000 ml @ 100 mls/hr Q10H 08/24/16 16:00 08/25/16 15:59 DC 08/24/16 17:57 100 MLS/HR Thiamine HCl (Vitamin B-1) 100 mg DAILY 08/25/16 14:15 08/27/16 07:57 100 MG Vitamin B Complex (Folbic Tablet) 1 tab DAILY 08/26/16 09:00 08/27/16 07:57 1 TAB Lab Laboratory Tests Test 08/27/16 04:55 Sodium Level 138mmol/L (136-145) Potassium Level 4.5mmol/L (3.5-5.1) Chloride Level 104mmol/L (98-107) Carbon Dioxide Level 24mmol/L (21-32) Anion Gap 10 (6-14) Blood Urea Nitrogen 36mg/dL (8-26) Creatinine 1.7mg/dL (0.7-1.3) Estimated GFR (Cockcroft-Gault) 54.9 Glucose Level 125mg/dL (70-99) Calcium Level 8.9mg/dL (8.5-10.1) Phosphorus Level 4.3mg/dL (2.6-4.7) Magnesium Level 2.1mg/dL (1.8-2.4) Albumin 2.2g/dL (3.4-5.0) Triglycerides Level 84mg/dL (0-150) Cholesterol Level 200mg/dL (0-200) LDL Cholesterol, Calculated 154mg/dL (0-100) VLDL Cholesterol, Calculated 17mg/dL (0-40) HDL Cholesterol 29mg/dL (40-60) Cholesterol/HDL Ratio 6.9 LIZEBT PEARL MD Aug 27, 2016 14:18
--- NOTE | 2016-08-27 14:32 | PDOC ---
PULMONARY PROGRESS NOTES Subjective no increase in soa Vitals Vital Signs Date Time Temp Pulse Resp B/P Pulse Ox O2 Delivery O2 Flow Rate FiO2 08/27/16 12:01 98 Nasal Cannula 2.0 08/27/16 07:00 97.7 89 22 123/79 97.7 General: Alert, No acute distress Lungs: Other (few ant rhonchi) Cardiovascular: S1 Abdomen: Soft, Other (markedly obese) Neuro Exam: Alert Extremities: Other (2+edema) Skin: Warm Labs Laboratory Tests Test 08/25/16 16:15 08/26/16 05:50 08/27/16 04:55 Urine Collection Type Unknown Urine Color Clementina Urine Clarity Clear Urine pH 5.5 Urine Specific [place] 1.010 Urine Protein Negativemg/dL (NEG-TRACE) Urine Glucose (UA) Negativemg/dL (NEG) Urine Ketones (Stick) Negativemg/dL (NEG) Urine Blood Small (NEG) Urine Nitrite Negative (NEG) Urine Bilirubin Negative (NEG) Urine Urobilinogen Dipstick 1.0mg/dL (0.2 mg/dL) Urine Leukocyte Esterase Negative (NEG) Urine RBC 3-5/HPF (0-2) Urine WBC 0/HPF (0-4) Urine Transitional Epithelial Cells Few/LPF Urine Bacteria 0/HPF (0-FEW) Urine Hyaline Casts Moderate/HPF Urine Mucus Slight/LPF Urine Random Total Protein 13.0mg/dL (Not Estab.) Urine Random Sodium 68mmol/L (Not Estab.) Urine Creatinine 95.1mg/dL (Not Estab.) Urine Protein/Creatinine Ratio 137mg/g creat (0-200) Hemoglobin 7.8g/dL (13.0-17.5) Sodium Level 138mmol/L (136-145) 138mmol/L (136-145) Potassium Level 4.4mmol/L (3.5-5.1) 4.5mmol/L (3.5-5.1) Chloride Level 103mmol/L (98-107) 104mmol/L (98-107) Carbon Dioxide Level 24mmol/L (21-32) 24mmol/L (21-32) Anion Gap 11 (6-14) 10 (6-14) Blood Urea Nitrogen 25mg/dL (8-26) 36mg/dL (8-26) Creatinine 1.7mg/dL (0.7-1.3) 1.7mg/dL (0.7-1.3) Estimated GFR (Cockcroft-Gault) 54.9 54.9 Glucose Level 131mg/dL (70-99) 125mg/dL (70-99) Calcium Level 8.9mg/dL (8.5-10.1) 8.9mg/dL (8.5-10.1) Phosphorus Level 4.5mg/dL (2.6-4.7) 4.3mg/dL (2.6-4.7) Magnesium Level 1.8mg/dL (1.8-2.4) 2.1mg/dL (1.8-2.4) Albumin 2.1g/dL (3.4-5.0) 2.2g/dL (3.4-5.0) Triglycerides Level 84mg/dL (0-150) Cholesterol Level 200mg/dL (0-200) LDL Cholesterol, Calculated 154mg/dL (0-100) VLDL Cholesterol, Calculated 17mg/dL (0-40) HDL Cholesterol 29mg/dL (40-60) Cholesterol/HDL Ratio 6.9 Laboratory Tests Test 08/27/16 04:55 Sodium Level 138mmol/L (136-145) Potassium Level 4.5mmol/L (3.5-5.1) Chloride Level 104mmol/L (98-107) Carbon Dioxide Level 24mmol/L (21-32) Anion Gap 10 (6-14) Blood Urea Nitrogen 36mg/dL (8-26) Creatinine 1.7mg/dL (0.7-1.3) Estimated GFR (Cockcroft-Gault) 54.9 Glucose Level 125mg/dL (70-99) Calcium Level 8.9mg/dL (8.5-10.1) Phosphorus Level 4.3mg/dL (2.6-4.7) Magnesium Level 2.1mg/dL (1.8-2.4) Albumin 2.2g/dL (3.4-5.0) Triglycerides Level 84mg/dL (0-150) Cholesterol Level 200mg/dL (0-200) LDL Cholesterol, Calculated 154mg/dL (0-100) VLDL Cholesterol, Calculated 17mg/dL (0-40) HDL Cholesterol 29mg/dL (40-60) Cholesterol/HDL Ratio 6.9 Medications Active Scripts Medications Dose Route/Sig Days Date Category Lasix (Furosemide) 20 Mg Tablet 1 Tab PO DAILY 06/11/16 Rx Magnesium Oxide 400 Mg Tablet 1 Tab PO DAILY 06/11/16 Rx Wellbutrin (Bupropion Hcl) 100 Mg Tablet Unknown Dose PO BID 08/14/14 Reported Haloperidol 2 Mg Tablet Unknown Dose PO 08/14/14 Reported Prilosec (Omeprazole) 40 Mg Capsule.dr 40 Mg PO DAILY 08/14/14 Reported Exforge 5-160 Mg Tablet (Amlodipine/Valsartan) 1 Each Tablet Unknown Dose PO 08/14/[address] CHEST 1. Left greater than right upper lobe groundglass opacity. No pleural effusion is identified. The findings could represent nonspecific infectious or inflammatory process. Asymmetric pulmonary edema is thought less likely, but still possible. 2. Body wall edema. Ascites. 3. Fatty liver disease. 4. Cholelithiasis. Impression . 1. Progressive dyspnea with 80-pound weight gain in last 6 months and with mild interstitial infiltrates in a morbidly obese patient with a BMI of 59. Most likely, this is [id number] cor pulmonale. 2. Suspect chronic renal insufficiency. now acute on chronic 3. History of tobaccoism, possible underlying chronic obstructive pulmonary disease. 4. Morbid obesity. Plan . 1. Agree with holding diuresis. 2. Echocardiogram.reviewed 3. Noncontrast CT chest reviewed. Left greater than right, upper lobe ground glass opacity. No pleural effusion is identified. The findings could represent nonspecific infectious or inflammatory process. Asymmetric pulmonary edema is also a possibility but less likely.on steroids/antibiotics 4. Weight loss, strongly emphasized. 5. Follow cxr as needed 6. Improve nutritional status. Albumin level is 2.2. SOLEDAD SNEED MD Aug 27, 2016 14:32
[2016-08-27] MEDS: NICOTINE 21MG PATCH. TD PRN (14:38)
[2016-08-27 15:00] VITALS: BP 120/68
--- NOTE | 2016-08-27 15:50 | PDOC ---
PROGRESS NOTES Chief Complaint Chief Complaint dyspnea, tachypnea, wheeze, SIRS Acute exacerbation of diastolic CHF, pickwickian, obesity tobaccoism morbid Obesity, BMI 59 w/ ongoing mod/severe malnutrition, will check urine protein CKD 3 anemia, anxiety, depression, schizotypal History of Present Illness History of Present Illness Le edema a little improved walked in orozco better today appetite improved Mult Myeloma w/u pending Vitals Vitals Vital Signs Date Time Temp Pulse Resp B/P Pulse Ox O2 Delivery O2 Flow Rate FiO2 08/27/16 15:00 99.0 89 20 120/68 98 Nasal Cannula 2.0 99.0 Physical Exam General: Alert, Oriented X3, Cooperative, No acute distress Heart: Regular rate, Normal S1, Normal S2, Other (2/6 systolic murmur ) Lungs: Other (few ant rhonchi) Abdomen: Soft, Other (ascites ) Extremities: Normal pulses, Other (2+ bilateral LE edema , diffuse thickening of pretibial skin) Skin: No breakdown, No significant lesion Labs LABS Laboratory Tests Test 08/27/16 04:55 Sodium Level 138mmol/L (136-145) Potassium Level 4.5mmol/L (3.5-5.1) Chloride Level 104mmol/L (98-107) Carbon Dioxide Level 24mmol/L (21-32) Anion Gap 10 (6-14) Blood Urea Nitrogen 36mg/dL (8-26) Creatinine 1.7mg/dL (0.7-1.3) Estimated GFR (Cockcroft-Gault) 54.9 Glucose Level 125mg/dL (70-99) Calcium Level 8.9mg/dL (8.5-10.1) Phosphorus Level 4.3mg/dL (2.6-4.7) Magnesium Level 2.1mg/dL (1.8-2.4) Albumin 2.2g/dL (3.4-5.0) Triglycerides Level 84mg/dL (0-150) Cholesterol Level 200mg/dL (0-200) LDL Cholesterol, Calculated 154mg/dL (0-100) VLDL Cholesterol, Calculated 17mg/dL (0-40) HDL Cholesterol 29mg/dL (40-60) Cholesterol/HDL Ratio 6.9 Review of Systems Review of Systems feels improved no n/v/d Assessment and Plan Assessmemt and Plan Problems Medical Problems: (1) Anasarca Status: Acute (2) Anemia Status: Acute (3) Community acquired pneumonia Status: Acute (4) Congestive heart failure Status: Acute (5) Severe protein-calorie malnutrition Status: Acute Problems: Comment Review of Relevant I have reviewed the following items maci (where applicable) has been applied. Labs Laboratory Tests Test 08/25/16 16:15 08/26/16 05:50 08/27/16 04:55 Urine Collection Type Unknown Urine Color Clementina Urine Clarity Clear Urine pH 5.5 Urine Specific [place] 1.010 Urine Protein Negativemg/dL (NEG-TRACE) Urine Glucose (UA) Negativemg/dL (NEG) Urine Ketones (Stick) Negativemg/dL (NEG) Urine Blood Small (NEG) Urine Nitrite Negative (NEG) Urine Bilirubin Negative (NEG) Urine Urobilinogen Dipstick 1.0mg/dL (0.2 mg/dL) Urine Leukocyte Esterase Negative (NEG) Urine RBC 3-5/HPF (0-2) Urine WBC 0/HPF (0-4) Urine Transitional Epithelial Cells Few/LPF Urine Bacteria 0/HPF (0-FEW) Urine Hyaline Casts Moderate/HPF Urine Mucus Slight/LPF Urine Random Creatinine 91.1mg/dL (Not Estab.) Urine Random Total Protein 13.0mg/dL (Not Estab.) Urine Random Sodium 68mmol/L (Not Estab.) Urine Creatinine 95.1mg/dL (Not Estab.) Urine Protein/Creatinine Ratio 137mg/g creat (0-200) Hemoglobin 7.8g/dL (13.0-17.5) Sodium Level 138mmol/L (136-145) 138mmol/L (136-145) Potassium Level 4.4mmol/L (3.5-5.1) 4.5mmol/L (3.5-5.1) Chloride Level 103mmol/L (98-107) 104mmol/L (98-107) Carbon Dioxide Level 24mmol/L (21-32) 24mmol/L (21-32) Anion Gap 11 (6-14) 10 (6-14) Blood Urea Nitrogen 25mg/dL (8-26) 36mg/dL (8-26) Creatinine 1.7mg/dL (0.7-1.3) 1.7mg/dL (0.7-1.3) Estimated GFR (Cockcroft-Gault) 54.9 54.9 Glucose Level 131mg/dL (70-99) 125mg/dL (70-99) Calcium Level 8.9mg/dL (8.5-10.1) 8.9mg/dL (8.5-10.1) Phosphorus Level 4.5mg/dL (2.6-4.7) 4.3mg/dL (2.6-4.7) Magnesium Level 1.8mg/dL (1.8-2.4) 2.1mg/dL (1.8-2.4) Albumin 2.1g/dL (3.4-5.0) 2.2g/dL (3.4-5.0) Triglycerides Level 84mg/dL (0-150) Cholesterol Level 200mg/dL (0-200) LDL Cholesterol, Calculated 154mg/dL (0-100) VLDL Cholesterol, Calculated 17mg/dL (0-40) HDL Cholesterol 29mg/dL (40-60) Cholesterol/HDL Ratio 6.9 Laboratory Tests Test 08/27/16 04:55 Sodium Level 138mmol/L (136-145) Potassium Level 4.5mmol/L (3.5-5.1) Chloride Level 104mmol/L (98-107) Carbon Dioxide Level 24mmol/L (21-32) Anion Gap 10 (6-14) Blood Urea Nitrogen 36mg/dL (8-26) Creatinine 1.7mg/dL (0.7-1.3) Estimated GFR (Cockcroft-Gault) 54.9 Glucose Level 125mg/dL (70-99) Calcium Level 8.9mg/dL (8.5-10.1) Phosphorus Level 4.3mg/dL (2.6-4.7) Magnesium Level 2.1mg/dL (1.8-2.4) Albumin 2.2g/dL (3.4-5.0) Triglycerides Level 84mg/dL (0-150) Cholesterol Level 200mg/dL (0-200) LDL Cholesterol, Calculated 154mg/dL (0-100) VLDL Cholesterol, Calculated 17mg/dL (0-40) HDL Cholesterol 29mg/dL (40-60) Cholesterol/HDL Ratio 6.9 Microbiology 08/24/16 Blood Culture - Preliminary, Resulted NO GROWTH AFTER 2 DAYS Medications Current Medications Albuterol/ Ipratropium (Duoneb) 6 ml 1X ONCE NEB Last administered on 13:11; Start 08/24/16 at 13:30; Stop 08/24/16 at 13:31; Status DC Albuterol Sulfate (Ventolin Neb Soln) 2.5 mg STK-MED ONCE .ROUTE ; Start at 13:06; Stop 08/24/16 at 13:07; Status DC Albuterol/ Ipratropium (Duoneb) 3 ml STK-MED ONCE .ROUTE ; Start 08/24/16 at 13: 06; Stop 08/24/16 at 13:07; Status DC Ondansetron HCl (Zofran) 4 mg PRN Q8HRS PRN IV NAUSEA/VOMITING; Start 08/24/16 at 15:30; Stop 08/25/16 at 15:29; Status DC Fentanyl Citrate 50 mcg 50 mcg PRN Q2HR PRN IV PAIN; Start 08/24/16 at 15:30; Stop 08/25/16 at 15:29; Status DC Sodium Chloride (Iv Sodium Chloride 0.9% 1000ml Bag) 1,000 ml @ 100 mls/hr Q10H IV Last administered on 08/24/16 17:57; Start 08/24/16 at 16:00; Stop at 15:59; Status DC Albuterol/ Ipratropium (Duoneb) 3 ml RTQID NEB Last administered on 08/25/16 15 :02; Start 08/24/16 at 16:00; Stop 08/25/16 at 15:59; Status DC Levofloxacin/ Dextrose 1 each 1 each PRN DAILY PRN MC SEE COMMENTS; Start at 15:30 Levofloxacin/ Dextrose (LEVAQUIN 500mg PREMIX) 100 ml @ 100 mls/hr Q24H IV Last administered on 08/26/16 16:46; Start 08/24/16 at 16:00 Nicotine (Nicoderm Cq 21mg) 1 patch PRN DAILY PRN TD SMOKING CESSATION Last administered on 08/27/16 14:38; Start 08/24/16 at 16:15 Nicotine Polacrilex (Nicorette Gum) 1 each PRN Q1HR PRN BC SMOKING CESSATION; Start 08/24/16 at 16:15 Pantoprazole Sodium (Protonix Vial) 40 mg 1X ONCE IVP Last administered on 08/24 17:57; Start 08/24/16 at 16:15; Stop 08/24/16 at 16:17; Status DC Pantoprazole Sodium (Protonix) 40 mg BID PO Last administered on 08/27/16 07:58 ; Start 08/24/16 at 21:00 Bupropion HCl (Wellbutrin) 100 mg BID PO Last administered on 08/27/16 07:57; Start 08/24/16 at 21:00 Furosemide (Lasix) 20 mg DAILY PO Last administered on 08/25/16 08:19; Start at 17:00; Stop 08/25/16 at 13:03; Status DC Haloperidol (Haldol) 2 mg HS PO Last administered on 08/26/16 20:47; Start 08/24 at 21:00 Magnesium Oxide (Magnesium Oxide) 400 mg DAILY PO Last administered on 07:57; Start 08/25/16 at 09:00 Non-Formulary Medication 40 mg DAILY PO ; Start 08/25/16 at 09:00; Status UNV Enoxaparin Sodium (Lovenox Per Pharmacy Prophylaxis Dosing) 1 each PRN DAILY PRN MC SEE COMMENTS; Start 08/24/16 at 16:45 Furosemide (Lasix) 80 mg 1X ONCE IVP Last administered on 08/24/16 17:57; Start 08/24/16 at 17:00; Stop 08/24/16 at 17:01; Status DC Enoxaparin Sodium (Lovenox 60mg Syringe) 60 mg Q12HR SQ Last administered on 07:59; Start 08/24/16 at 21:00 Furosemide (Lasix) 40 mg DAILY IVP Last administered on 08/25/16 14:22; Start 08/25/16 at 14:00; Stop 08/25/16 at 15:07; Status DC Thiamine HCl (Vitamin B-1) 100 mg DAILY PO Last administered on 08/27/16 07:57 ; Start 08/25/16 at 14:15 Vitamin B Complex (Folbic Tablet) 1 tab DAILY PO Last administered on 08/27/16 07:57; Start 08/26/16 at 09:00 Lorazepam (Ativan) 2 mg PRN Q1HR PRN IV For CIWA 8-14; Start 08/25/16 at 14:15 Lorazepam (Ativan) 4 mg PRN Q1HR PRN IV For CIWA 15 or greater; Start 08/25/16 at 14:15 Lorazepam (Ativan) 1 mg DAILY PO Last administered on 08/27/16 07:57; Start 08/25/16 at 14:15 Methylprednisolone Sodium Succinate 40 mg 40 mg Q8HRS IV Last administered on 14:32; Start 08/25/16 at 15:00 Sodium Chloride 500 ml @ 0 mls/hr PRN QID PRN IV UO< 30cc/hr over previous 6hrs ; Start 08/25/16 at 15:15 Magnesium Sulfate/ Dextrose (Magnesium Sulfate PREMIX 2GM) 50 ml @ 25 mls/hr PRN DAILY PRN IV for Mag < 1.7 on am labs; Start 08/25/16 at 15:15 Albuterol/ Ipratropium (Duoneb) 3 ml RTQID NEB Last administered on 08/27/16 12 :01; Start 08/25/16 at 20:00 Albuterol Sulfate (Ventolin Neb Soln) 2.5 mg PRN Q2HR PRN NEB SHORTNESS OF BREATH; Start 08/25/16 at 19:45 Active Scripts Active Lasix (Furosemide) 20 Mg Tablet 1 Tab PO DAILY Magnesium Oxide 400 Mg Tablet 1 Tab PO DAILY Reported Wellbutrin (Bupropion Hcl) 100 Mg Tablet Unknown Dose PO BID Haloperidol 2 Mg Tablet Unknown Dose PO Prilosec (Omeprazole) 40 Mg Capsule.dr 40 Mg PO DAILY Exforge 5-160 Mg Tablet (Amlodipine/Valsartan) 1 Each Tablet Unknown Dose PO Vitals/I & O Vital Sign - Last 24 Hours 08/26/16 08/26/16 08/26/16 08/26/16 19:00 20:00 20:28 23:00 Temp 97.5 98.1 97.5 98.1 Pulse 91 94 Resp 22 B/P 133/73 106/64 Pulse Ox 95 97 94 O2 Delivery Nasal Cannula Nasal Cannula Nasal Cannula Nasal Cannula O2 Flow Rate 2.0 2.0 2.0 2.0 08/27/16 08/27/16 08/27/16 08/27/16 07:00 07:11 08:00 12:01 Temp 97.7 97.7 Pulse 89 Resp 22 B/P 123/79 Pulse Ox 96 98 98 O2 Delivery Nasal Cannula Nasal Cannula Nasal Cannula Nasal Cannula O2 Flow Rate 2.0 2.0 2.0 2.0 08/27/16 15:00 Temp 99.0 99.0 Pulse 89 Resp 20 B/P 120/68 Pulse Ox 98 O2 Delivery Nasal Cannula O2 Flow Rate 2.0 Intake and Output 08/26/16 08/26/16 08/27/16 15:00 23:00 07:00 Intake Total 740 ml 1730 ml 750 ml Output Total 1600 ml 550 ml Balance 740 ml 130 ml 200 ml RESHMA FRANKEL MD Aug 27, 2016 15:50
[2016-08-27 19:00] VITALS: BP 127/74
[2016-08-27] MEDS: HALOPERIDOL 2 MG TABLET. PO SCH (20:06)
[2016-08-27 22:49] VITALS: BP 124/70
[2016-08-28 02:48] VITALS: BP 113/63
[2016-08-28] MEDS: methylPREDNISolone SOD SUCC PF 40 MG/ML VIAL. IV SCH ×3 (05:50→20:59)
[2016-08-28 07:00] VITALS: BP 139/83
[2016-08-28 07:51] LABS: BASO % 0 % (0-3); EOS % 0 % (0-3); HEMATOCRIT 24.6 % (39.0-53.0); LYMPH # 0.7 x10^3/uL (1.0-4.8); LYMPH % 5 % (24-48); MEAN CORPUSCULAR HEMOGLOBIN 32 pg (25-35); MEAN CORPUSCULAR HGB CONC 33 g/dL (31-37); MEAN CORPUSCULAR VOLUME 98 fL (79-100); MONO % 11 % (0-9); NEUT % 85 % (31-73); PLATELET COUNT 187 x10^3/uL (140-400); RED CELL DISTRIBUTION WIDTH 16.5 % (11.5-14.5); WHITE BLOOD COUNT 15.1 x10^3/uL (4.0-11.0)
[2016-08-28] MEDS: buPROPion 100 MG TABLET PO SCH ×2 (08:12→20:59)
[2016-08-28] MEDS: PANTOPRAZOLE 40 MG TABLET.DR. PO SCH ×2 (08:12→20:59)
[2016-08-28] MEDS: MAGNESIUM OXIDE 400 MG TABLET PO SCH (08:12)
[2016-08-28] MEDS: LORAZEPAM 1 MG TABLET. PO SCH (08:12)
[2016-08-28] MEDS: VITAMIN B12,B9,B6 COMPLEX 1 TABLET. PO SCH (08:12)
[2016-08-28] MEDS: THIAMINE 100 MG TABLET. PO SCH (08:12)
[2016-08-28 08:23] LABS: ALBUMIN 2.4 g/dL (3.4-5.0); ALBUMIN/GLOBULIN RATIO 0.4 (1.0-1.7); CREATININE 1.7 mg/dL (0.7-1.3); GFR 54.9; POTASSIUM 4.2 mmol/L (3.5-5.1); TOTAL BILIRUBIN 1.3 mg/dL (0.2-1.0); TOTAL PROTEIN 8.6 g/dL (6.4-8.2)
[2016-08-28] MEDS: IPRATRPIUM/ALBUTEROL 0.5/2.5MG 3 ML NEBU. NEB SCH ×4 (08:57→20:32)
[2016-08-28 09:05] LABS: PLT ESTIMATE ADEQUATE (ADEQUATE); TARGET CELLS PRESENT
--- NOTE | 2016-08-28 10:48 | PDOC ---
PULMONARY PROGRESS NOTES Subjective no increase in soa, has occ cough, has nasal congestion, no pain Vitals Vital Signs Date Time Temp Pulse Resp B/P Pulse Ox O2 Delivery O2 Flow Rate FiO2 08/28/16 08:58 100 Nasal Cannula 2.0 08/28/16 07:00 97.7 91 24 139/83 97.7 ROS: No Nausea, No Chest Pain, No Abdominal Pain, No Increase Cough General: Alert, No acute distress HEENT: Other (nc at perrl, shallow oropharynx. nose inflamed mucosa) Lungs: Other (few ant rhonchi) Cardiovascular: S1, S2 Abdomen: Soft, Non-tender, Other (markedly obese) Neuro Exam: Alert Extremities: Other (2+edema) Skin: Warm Labs Laboratory Tests Test 08/27/16 04:55 08/28/16 04:50 08/28/16 07:31 Sodium Level 138mmol/L (136-145) 138mmol/L (136-145) Potassium Level 4.5mmol/L (3.5-5.1) 4.2mmol/L (3.5-5.1) Chloride Level 104mmol/L (98-107) 104mmol/L (98-107) Carbon Dioxide Level 24mmol/L (21-32) 24mmol/L (21-32) Anion Gap 10 (6-14) 10 (6-14) Blood Urea Nitrogen 36mg/dL (8-26) 42mg/dL (8-26) Creatinine 1.7mg/dL (0.7-1.3) 1.7mg/dL (0.7-1.3) Estimated GFR (Cockcroft-Gault) 54.9 54.9 Glucose Level 125mg/dL (70-99) 115mg/dL (70-99) Calcium Level 8.9mg/dL (8.5-10.1) 9.0mg/dL (8.5-10.1) Phosphorus Level 4.3mg/dL (2.6-4.7) 4.0mg/dL (2.6-4.7) Magnesium Level 2.1mg/dL (1.8-2.4) 2.3mg/dL (1.8-2.4) 2.0mg/dL (1.8-2.4) Albumin 2.2g/dL (3.4-5.0) 2.4g/dL (3.4-5.0) Triglycerides Level 84mg/dL (0-150) Cholesterol Level 200mg/dL (0-200) LDL Cholesterol, Calculated 154mg/dL (0-100) VLDL Cholesterol, Calculated 17mg/dL (0-40) HDL Cholesterol 29mg/dL (40-60) Cholesterol/HDL Ratio 6.9 White Blood Count 15.1x10^3/uL (4.0-11.0) Red Blood Count 2.50x10^6/uL (4.30-5.70) Hemoglobin 8.0g/dL (13.0-17.5) Hematocrit 24.6% (39.0-53.0) Mean Corpuscular Volume 98fL (79-100) Mean Corpuscular Hemoglobin 32pg (25-35) Mean Corpuscular Hemoglobin Concent 33g/dL (31-37) Red Cell Distribution Width 16.5% (11.5-14.5) Platelet Count 187x10^3/uL (140-400) Neutrophils (%) (Auto) 85% (31-73) Lymphocytes (%) (Auto) 5% (24-48) Monocytes (%) (Auto) 11% (0-9) Eosinophils (%) (Auto) 0% (0-3) Basophils (%) (Auto) 0% (0-3) Neutrophils # (Auto) 12.8x10^3uL (1.8-7.7) Lymphocytes # (Auto) 0.7x10^3/uL (1.0-4.8) Monocytes # (Auto) 1.6x10^3/uL (0.0-1.1) Eosinophils # (Auto) 0.0x10^3/uL (0.0-0.7) Basophils # (Auto) 0.0x10^3/uL (0.0-0.2) Segmented Neutrophils % 80% (35-66) Band Neutrophils % 2% (0-9) Lymphocytes % 7% (24-48) Monocytes % 10% (0-10) Myelocytes % 1% (0-0) Platelet Estimate Adequate (ADEQUATE) Target Cells Present BUN/Creatinine Ratio 25 (6-20) Total Bilirubin 1.3mg/dL (0.2-1.0) Aspartate Amino Transf (AST/SGOT) 60U/L (15-37) Alanine Aminotransferase (ALT/SGPT) 31U/L (16-63) Alkaline Phosphatase 307U/L (46-116) Total Protein 8.6g/dL (6.4-8.2) Albumin/Globulin Ratio 0.4 (1.0-1.7) Laboratory Tests Test 08/28/16 04:50 08/28/16 07:31 Magnesium Level 2.3mg/dL (1.8-2.4) 2.0mg/dL (1.8-2.4) White Blood Count 15.1x10^3/uL (4.0-11.0) Red Blood Count 2.50x10^6/uL (4.30-5.70) Hemoglobin 8.0g/dL (13.0-17.5) Hematocrit 24.6% (39.0-53.0) Mean Corpuscular Volume 98fL (79-100) Mean Corpuscular Hemoglobin 32pg (25-35) Mean Corpuscular Hemoglobin Concent 33g/dL (31-37) Red Cell Distribution Width 16.5% (11.5-14.5) Platelet Count 187x10^3/uL (140-400) Neutrophils (%) (Auto) 85% (31-73) Lymphocytes (%) (Auto) 5% (24-48) Monocytes (%) (Auto) 11% (0-9) Eosinophils (%) (Auto) 0% (0-3) Basophils (%) (Auto) 0% (0-3) Neutrophils # (Auto) 12.8x10^3uL (1.8-7.7) Lymphocytes # (Auto) 0.7x10^3/uL (1.0-4.8) Monocytes # (Auto) 1.6x10^3/uL (0.0-1.1) Eosinophils # (Auto) 0.0x10^3/uL (0.0-0.7) Basophils # (Auto) 0.0x10^3/uL (0.0-0.2) Segmented Neutrophils % 80% (35-66) Band Neutrophils % 2% (0-9) Lymphocytes % 7% (24-48) Monocytes % 10% (0-10) Myelocytes % 1% (0-0) Platelet Estimate Adequate (ADEQUATE) Target Cells Present Sodium Level 138mmol/L (136-145) Potassium Level 4.2mmol/L (3.5-5.1) Chloride Level 104mmol/L (98-107) Carbon Dioxide Level 24mmol/L (21-32) Anion Gap 10 (6-14) Blood Urea Nitrogen 42mg/dL (8-26) Creatinine 1.7mg/dL (0.7-1.3) Estimated GFR (Cockcroft-Gault) 54.9 BUN/Creatinine Ratio 25 (6-20) Glucose Level 115mg/dL (70-99) Calcium Level 9.0mg/dL (8.5-10.1) Phosphorus Level 4.0mg/dL (2.6-4.7) Total Bilirubin 1.3mg/dL (0.2-1.0) Aspartate Amino Transf (AST/SGOT) 60U/L (15-37) Alanine Aminotransferase (ALT/SGPT) 31U/L (16-63) Alkaline Phosphatase 307U/L (46-116) Total Protein 8.6g/dL (6.4-8.2) Albumin 2.4g/dL (3.4-5.0) Albumin/Globulin Ratio 0.4 (1.0-1.7) Medications Active Scripts Medications Dose Route/Sig Days Date Category Lasix (Furosemide) 20 Mg Tablet 1 Tab PO DAILY 06/11/16 Rx Magnesium Oxide 400 Mg Tablet 1 Tab PO DAILY 06/11/16 Rx Wellbutrin (Bupropion Hcl) 100 Mg Tablet Unknown Dose PO BID 08/14/14 Reported Haloperidol 2 Mg Tablet Unknown Dose PO 08/14/14 Reported Prilosec (Omeprazole) 40 Mg Capsule.dr 40 Mg PO DAILY 08/14/14 Reported Exforge 5-160 Mg Tablet (Amlodipine/Valsartan) 1 Each Tablet Unknown Dose PO 08/14/[address] CHEST 1. Left greater than right upper lobe groundglass opacity. No pleural effusion is identified. The findings could represent nonspecific infectious or inflammatory process. Asymmetric pulmonary edema is thought less likely, but still possible. 2. Body wall edema. Ascites. 3. Fatty liver disease. 4. Cholelithiasis. Impression . 1. Progressive dyspnea with 80-pound weight gain in last 6 months and with mild interstitial infiltrates in a morbidly obese patient with a BMI of 59. Most likely, this is [id number] cor pulmonale. 2. Suspect chronic renal insufficiency. now acute on chronic 3. History of tobaccoism, possible underlying chronic obstructive pulmonary disease. 4. Morbid obesity, prob bishnu Plan . 1. keep I<O, monitor k, cr. 2. Echocardiogram.reviewed 3. Noncontrast CT chest reviewed. Left greater than right, upper lobe ground glass opacity. No pleural effusion is identified. The findings could represent nonspecific infectious or inflammatory process. Asymmetric pulmonary edema is also a possibility but less likely.on steroids/antibiotics 4. Weight loss, strongly emphasized. 5. Follow cxr as needed 6. Improve nutritional status. Albumin level is 2.2. 7. psg as out pt discussed w pt GONZALES MADRIGAL MD Aug 28, 2016 10:48
[2016-08-28 11:00] VITALS: BP 143/88
--- NOTE | 2016-08-28 13:56 | PDOC ---
G I PROGRESS NOTE Reason for Follow-up Hepatitis/rectal bleeding Subjective Breathing better Physical Exam Lungs decreased BS CV S1 S2 ABD distended, +BS, soft, Review of Relevant I have reviewed the following items maci (where applicable) has been applied. Labs Laboratory Tests Test 08/27/16 04:55 08/28/16 04:50 08/28/16 07:31 Sodium Level 138mmol/L (136-145) 138mmol/L (136-145) Potassium Level 4.5mmol/L (3.5-5.1) 4.2mmol/L (3.5-5.1) Chloride Level 104mmol/L (98-107) 104mmol/L (98-107) Carbon Dioxide Level 24mmol/L (21-32) 24mmol/L (21-32) Anion Gap 10 (6-14) 10 (6-14) Blood Urea Nitrogen 36mg/dL (8-26) 42mg/dL (8-26) Creatinine 1.7mg/dL (0.7-1.3) 1.7mg/dL (0.7-1.3) Estimated GFR (Cockcroft-Gault) 54.9 54.9 Glucose Level 125mg/dL (70-99) 115mg/dL (70-99) Calcium Level 8.9mg/dL (8.5-10.1) 9.0mg/dL (8.5-10.1) Phosphorus Level 4.3mg/dL (2.6-4.7) 4.0mg/dL (2.6-4.7) Magnesium Level 2.1mg/dL (1.8-2.4) 2.3mg/dL (1.8-2.4) 2.0mg/dL (1.8-2.4) Albumin 2.2g/dL (3.4-5.0) 2.4g/dL (3.4-5.0) Triglycerides Level 84mg/dL (0-150) Cholesterol Level 200mg/dL (0-200) LDL Cholesterol, Calculated 154mg/dL (0-100) VLDL Cholesterol, Calculated 17mg/dL (0-40) HDL Cholesterol 29mg/dL (40-60) Cholesterol/HDL Ratio 6.9 White Blood Count 15.1x10^3/uL (4.0-11.0) Red Blood Count 2.50x10^6/uL (4.30-5.70) Hemoglobin 8.0g/dL (13.0-17.5) Hematocrit 24.6% (39.0-53.0) Mean Corpuscular Volume 98fL (79-100) Mean Corpuscular Hemoglobin 32pg (25-35) Mean Corpuscular Hemoglobin Concent 33g/dL (31-37) Red Cell Distribution Width 16.5% (11.5-14.5) Platelet Count 187x10^3/uL (140-400) Neutrophils (%) (Auto) 85% (31-73) Lymphocytes (%) (Auto) 5% (24-48) Monocytes (%) (Auto) 11% (0-9) Eosinophils (%) (Auto) 0% (0-3) Basophils (%) (Auto) 0% (0-3) Neutrophils # (Auto) 12.8x10^3uL (1.8-7.7) Lymphocytes # (Auto) 0.7x10^3/uL (1.0-4.8) Monocytes # (Auto) 1.6x10^3/uL (0.0-1.1) Eosinophils # (Auto) 0.0x10^3/uL (0.0-0.7) Basophils # (Auto) 0.0x10^3/uL (0.0-0.2) Segmented Neutrophils % 80% (35-66) Band Neutrophils % 2% (0-9) Lymphocytes % 7% (24-48) Monocytes % 10% (0-10) Myelocytes % 1% (0-0) Platelet Estimate Adequate (ADEQUATE) Target Cells Present BUN/Creatinine Ratio 25 (6-20) Total Bilirubin 1.3mg/dL (0.2-1.0) Aspartate Amino Transf (AST/SGOT) 60U/L (15-37) Alanine Aminotransferase (ALT/SGPT) 31U/L (16-63) Alkaline Phosphatase 307U/L (46-116) Total Protein 8.6g/dL (6.4-8.2) Albumin/Globulin Ratio 0.4 (1.0-1.7) Laboratory Tests Test 08/28/16 04:50 08/28/16 07:31 Magnesium Level 2.3mg/dL (1.8-2.4) 2.0mg/dL (1.8-2.4) White Blood Count 15.1x10^3/uL (4.0-11.0) Red Blood Count 2.50x10^6/uL (4.30-5.70) Hemoglobin 8.0g/dL (13.0-17.5) Hematocrit 24.6% (39.0-53.0) Mean Corpuscular Volume 98fL (79-100) Mean Corpuscular Hemoglobin 32pg (25-35) Mean Corpuscular Hemoglobin Concent 33g/dL (31-37) Red Cell Distribution Width 16.5% (11.5-14.5) Platelet Count 187x10^3/uL (140-400) Neutrophils (%) (Auto) 85% (31-73) Lymphocytes (%) (Auto) 5% (24-48) Monocytes (%) (Auto) 11% (0-9) Eosinophils (%) (Auto) 0% (0-3) Basophils (%) (Auto) 0% (0-3) Neutrophils # (Auto) 12.8x10^3uL (1.8-7.7) Lymphocytes # (Auto) 0.7x10^3/uL (1.0-4.8) Monocytes # (Auto) 1.6x10^3/uL (0.0-1.1) Eosinophils # (Auto) 0.0x10^3/uL (0.0-0.7) Basophils # (Auto) 0.0x10^3/uL (0.0-0.2) Segmented Neutrophils % 80% (35-66) Band Neutrophils % 2% (0-9) Lymphocytes % 7% (24-48) Monocytes % 10% (0-10) Myelocytes % 1% (0-0) Platelet Estimate Adequate (ADEQUATE) Target Cells Present Sodium Level 138mmol/L (136-145) Potassium Level 4.2mmol/L (3.5-5.1) Chloride Level 104mmol/L (98-107) Carbon Dioxide Level 24mmol/L (21-32) Anion Gap 10 (6-14) Blood Urea Nitrogen 42mg/dL (8-26) Creatinine 1.7mg/dL (0.7-1.3) Estimated GFR (Cockcroft-Gault) 54.9 BUN/Creatinine Ratio 25 (6-20) Glucose Level 115mg/dL (70-99) Calcium Level 9.0mg/dL (8.5-10.1) Phosphorus Level 4.0mg/dL (2.6-4.7) Total Bilirubin 1.3mg/dL (0.2-1.0) Aspartate Amino Transf (AST/SGOT) 60U/L (15-37) Alanine Aminotransferase (ALT/SGPT) 31U/L (16-63) Alkaline Phosphatase 307U/L (46-116) Total Protein 8.6g/dL (6.4-8.2) Albumin 2.4g/dL (3.4-5.0) Albumin/Globulin Ratio 0.4 (1.0-1.7) Microbiology 08/24/16 Blood Culture - Preliminary, Resulted NO GROWTH AFTER 3 DAYS Medications Current Medications Albuterol/ Ipratropium (Duoneb) 6 ml 1X ONCE NEB Last administered on 13:11; Start 08/24/16 at 13:30; Stop 08/24/16 at 13:31; Status DC Albuterol Sulfate (Ventolin Neb Soln) 2.5 mg STK-MED ONCE .ROUTE ; Start at 13:06; Stop 08/24/16 at 13:07; Status DC Albuterol/ Ipratropium (Duoneb) 3 ml STK-MED ONCE .ROUTE ; Start 08/24/16 at 13: 06; Stop 08/24/16 at 13:07; Status DC Ondansetron HCl (Zofran) 4 mg PRN Q8HRS PRN IV NAUSEA/VOMITING; Start 08/24/16 at 15:30; Stop 08/25/16 at 15:29; Status DC Fentanyl Citrate 50 mcg 50 mcg PRN Q2HR PRN IV PAIN; Start 08/24/16 at 15:30; Stop 08/25/16 at 15:29; Status DC Sodium Chloride (Iv Sodium Chloride 0.9% 1000ml Bag) 1,000 ml @ 100 mls/hr Q10H IV Last administered on 08/24/16 17:57; Start 08/24/16 at 16:00; Stop at 15:59; Status DC Albuterol/ Ipratropium (Duoneb) 3 ml RTQID NEB Last administered on 08/25/16 15 :02; Start 08/24/16 at 16:00; Stop 08/25/16 at 15:59; Status DC Levofloxacin/ Dextrose 1 each 1 each PRN DAILY PRN MC SEE COMMENTS; Start at 15:30; Stop 08/28/16 at 13:47; Status DC Levofloxacin/ Dextrose (LEVAQUIN 500mg PREMIX) 100 ml @ 100 mls/hr Q24H IV Last administered on 08/27/16 16:35; Start 08/24/16 at 16:00 Nicotine (Nicoderm Cq 21mg) 1 patch PRN DAILY PRN TD SMOKING CESSATION Last administered on 08/27/16 14:38; Start 08/24/16 at 16:15 Nicotine Polacrilex (Nicorette Gum) 1 each PRN Q1HR PRN BC SMOKING CESSATION; Start 08/24/16 at 16:15 Pantoprazole Sodium (Protonix Vial) 40 mg 1X ONCE IVP Last administered on 08/24 17:57; Start 08/24/16 at 16:15; Stop 08/24/16 at 16:17; Status DC Pantoprazole Sodium (Protonix) 40 mg BID PO Last administered on 08/28/16 08:12 ; Start 08/24/16 at 21:00 Bupropion HCl (Wellbutrin) 100 mg BID PO Last administered on 08/28/16 08:12; Start 08/24/16 at 21:00 Furosemide (Lasix) 20 mg DAILY PO Last administered on 08/25/16 08:19; Start at 17:00; Stop 08/25/16 at 13:03; Status DC Haloperidol (Haldol) 2 mg HS PO Last administered on 08/27/16 20:06; Start 08/24 at 21:00 Magnesium Oxide (Magnesium Oxide) 400 mg DAILY PO Last administered on 08:12; Start 08/25/16 at 09:00 Non-Formulary Medication 40 mg DAILY PO ; Start 08/25/16 at 09:00; Status UNV Enoxaparin Sodium (Lovenox Per Pharmacy Prophylaxis Dosing) 1 each PRN DAILY PRN MC SEE COMMENTS; Start 08/24/16 at 16:45; Stop 08/28/16 at 13:47; Status DC Furosemide (Lasix) 80 mg 1X ONCE IVP Last administered on 08/24/16 17:57; Start 08/24/16 at 17:00; Stop 08/24/16 at 17:01; Status DC Enoxaparin Sodium (Lovenox 60mg Syringe) 60 mg Q12HR SQ Last administered on 08:14; Start 08/24/16 at 21:00 Furosemide (Lasix) 40 mg DAILY IVP Last administered on 08/25/16 14:22; Start 08/25/16 at 14:00; Stop 08/25/16 at 15:07; Status DC Thiamine HCl (Vitamin B-1) 100 mg DAILY PO Last administered on 08/28/16 08:12 ; Start 08/25/16 at 14:15 Vitamin B Complex (Folbic Tablet) 1 tab DAILY PO Last administered on 08/28/16 08:12; Start 08/26/16 at 09:00 Lorazepam (Ativan) 2 mg PRN Q1HR PRN IV For CIWA 8-14; Start 08/25/16 at 14:15 Lorazepam (Ativan) 4 mg PRN Q1HR PRN IV For CIWA 15 or greater; Start 08/25/16 at 14:15 Lorazepam (Ativan) 1 mg DAILY PO Last administered on 08/28/16 08:12; Start 08/25/16 at 14:15 Methylprednisolone Sodium Succinate 40 mg 40 mg Q8HRS IV Last administered on 13:47; Start 08/25/16 at 15:00 Sodium Chloride 500 ml @ 0 mls/hr PRN QID PRN IV UO< 30cc/hr over previous 6hrs ; Start 08/25/16 at 15:15 Magnesium Sulfate/ Dextrose (Magnesium Sulfate PREMIX 2GM) 50 ml @ 25 mls/hr PRN DAILY PRN IV for Mag < 1.7 on am labs; Start 08/25/16 at 15:15 Albuterol/ Ipratropium (Duoneb) 3 ml RTQID NEB Last administered on 08/28/16 11 :37; Start 08/25/16 at 20:00 Albuterol Sulfate (Ventolin Neb Soln) 2.5 mg PRN Q2HR PRN NEB SHORTNESS OF BREATH; Start 08/25/16 at 19:45 Active Scripts Active Lasix (Furosemide) 20 Mg Tablet 1 Tab PO DAILY Magnesium Oxide 400 Mg Tablet 1 Tab PO DAILY Reported Wellbutrin (Bupropion Hcl) 100 Mg Tablet Unknown Dose PO BID Haloperidol 2 Mg Tablet Unknown Dose PO Prilosec (Omeprazole) 40 Mg Capsule.dr 40 Mg PO DAILY Exforge 5-160 Mg Tablet (Amlodipine/Valsartan) 1 Each Tablet Unknown Dose PO Vitals/I & O Vital Sign - Last 24 Hours 08/27/16 08/27/16 08/27/16 08/27/16 15:00 16:20 19:00 19:51 Temp 99.0 96.6 99.0 96.6 Pulse 89 91 Resp 20 20 B/P 120/68 127/74 Pulse Ox 98 100 99 O2 Delivery Nasal Cannula Nasal Cannula Nasal Cannula Nasal Cannula O2 Flow Rate 2.0 2.0 2.0 2.0 08/27/16 08/27/16 08/28/16 08/28/16 20:00 22:49 02:48 07:00 Temp 99.7 99.5 97.7 99.7 99.5 97.7 Pulse 93 89 91 Resp 22 22 24 B/P 124/70 113/63 139/83 Pulse Ox 95 96 95 O2 Delivery Nasal Cannula Nasal Cannula Nasal Cannula Nasal Cannula O2 Flow Rate 2.0 2.0 2.0 2.0 08/28/16 08/28/16 08/28/16 08/28/16 08:00 08:58 11:00 11:39 Temp 97.4 97.4 Pulse 89 Resp 24 B/P 143/88 Pulse Ox 100 96 O2 Delivery Nasal Cannula Nasal Cannula Nasal Cannula Nasal Cannula O2 Flow Rate 2.0 2.0 2.0 2.0 Intake and Output 08/27/16 08/27/16 08/28/16 15:00 23:00 07:00 Intake Total 555 ml 710 ml 100 ml Output Total 600 ml 250 ml 750 ml Balance -45 ml 460 ml -650 ml Problem List Problems Medical Problems: (1) Anasarca Status: Acute (2) Anemia Status: Acute (3) Community acquired pneumonia Status: Acute (4) Congestive heart failure Status: Acute (5) Severe protein-calorie malnutrition Status: Acute Assessment Hepatitis- with pneumonia, likely secondary to congestion, await serologies Rectal bleeding- etiology to be determined. Colonoscopy either as inpt or otpt once pulmonary status improved KALYAN BRISENO MD Aug 28, 2016 13:56
--- NOTE | 2016-08-28 14:15 | PDOC ---
PROGRESS NOTES Chief Complaint Chief Complaint 1. Progressive dyspnea with 80-pound weight gain in last 6 months and with mild interstitial infiltrates in a morbidly obese patient with a BMI of 59. Most likely, this is [id number] cor pulmonale. 2. Suspect chronic renal insufficiency. now acute on chronic stage 3 3. History of tobaccoism, possible underlying chronic obstructive pulmonary disease. 4. Morbid obesity, prob bishnu, pickwinian 5. SIRS POA, no sepsis 6. Anemia of CKD 7. anxiety, depression, schizotypal History of Present Illness History of Present Illness Breathing better MOrbidly obese Niño in with good UO NOt on CPAP at home, never had sleep study done per Gi note: Hepatitis- with pneumonia, likely secondary to congestion, await serologies Rectal bleeding- etiology to be determined. Colonoscopy either as inpt or otpt once pulmonary status improved Walked the halls yesterday tuesday appetite improved Mult Myeloma w/u pending PLAn: CPM MM work up PT/OT I and O Vitals Vitals Vital Signs Date Time Temp Pulse Resp B/P Pulse Ox O2 Delivery O2 Flow Rate FiO2 08/28/16 11:39 Nasal Cannula 2.0 08/28/16 11:00 97.4 89 24 143/88 96 97.4 Physical Exam General: Alert, Oriented X3, Cooperative, No acute distress Heart: Regular rate, Normal S1, Normal S2, Other (2/6 systolic murmur ) Lungs: Other (few ant rhonchi) Abdomen: Soft, Other (ascites ) Extremities: Normal pulses, Other (2+ bilateral LE edema , diffuse thickening of pretibial skin) Skin: No breakdown, No significant lesion Labs LABS Laboratory Tests Test 08/28/16 04:50 08/28/16 07:31 Magnesium Level 2.3mg/dL (1.8-2.4) 2.0mg/dL (1.8-2.4) White Blood Count 15.1x10^3/uL (4.0-11.0) Red Blood Count 2.50x10^6/uL (4.30-5.70) Hemoglobin 8.0g/dL (13.0-17.5) Hematocrit 24.6% (39.0-53.0) Mean Corpuscular Volume 98fL (79-100) Mean Corpuscular Hemoglobin 32pg (25-35) Mean Corpuscular Hemoglobin Concent 33g/dL (31-37) Red Cell Distribution Width 16.5% (11.5-14.5) Platelet Count 187x10^3/uL (140-400) Neutrophils (%) (Auto) 85% (31-73) Lymphocytes (%) (Auto) 5% (24-48) Monocytes (%) (Auto) 11% (0-9) Eosinophils (%) (Auto) 0% (0-3) Basophils (%) (Auto) 0% (0-3) Neutrophils # (Auto) 12.8x10^3uL (1.8-7.7) Lymphocytes # (Auto) 0.7x10^3/uL (1.0-4.8) Monocytes # (Auto) 1.6x10^3/uL (0.0-1.1) Eosinophils # (Auto) 0.0x10^3/uL (0.0-0.7) Basophils # (Auto) 0.0x10^3/uL (0.0-0.2) Segmented Neutrophils % 80% (35-66) Band Neutrophils % 2% (0-9) Lymphocytes % 7% (24-48) Monocytes % 10% (0-10) Myelocytes % 1% (0-0) Platelet Estimate Adequate (ADEQUATE) Target Cells Present Sodium Level 138mmol/L (136-145) Potassium Level 4.2mmol/L (3.5-5.1) Chloride Level 104mmol/L (98-107) Carbon Dioxide Level 24mmol/L (21-32) Anion Gap 10 (6-14) Blood Urea Nitrogen 42mg/dL (8-26) Creatinine 1.7mg/dL (0.7-1.3) Estimated GFR (Cockcroft-Gault) 54.9 BUN/Creatinine Ratio 25 (6-20) Glucose Level 115mg/dL (70-99) Calcium Level 9.0mg/dL (8.5-10.1) Phosphorus Level 4.0mg/dL (2.6-4.7) Total Bilirubin 1.3mg/dL (0.2-1.0) Aspartate Amino Transf (AST/SGOT) 60U/L (15-37) Alanine Aminotransferase (ALT/SGPT) 31U/L (16-63) Alkaline Phosphatase 307U/L (46-116) Total Protein 8.6g/dL (6.4-8.2) Albumin 2.4g/dL (3.4-5.0) Albumin/Globulin Ratio 0.4 (1.0-1.7) Review of Systems Review of Systems no soa, no cp, no nv.d. Assessment and Plan Assessmemt and Plan Problems Medical Problems: (1) Anasarca Status: Acute (2) Anemia Status: Acute (3) Community acquired pneumonia Status: Acute (4) Congestive heart failure Status: Acute (5) Severe protein-calorie malnutrition Status: Acute Problems: Comment Review of Relevant I have reviewed the following items maci (where applicable) has been applied. Labs Laboratory Tests Test 08/27/16 04:55 08/28/16 04:50 08/28/16 07:31 Sodium Level 138mmol/L (136-145) 138mmol/L (136-145) Potassium Level 4.5mmol/L (3.5-5.1) 4.2mmol/L (3.5-5.1) Chloride Level 104mmol/L (98-107) 104mmol/L (98-107) Carbon Dioxide Level 24mmol/L (21-32) 24mmol/L (21-32) Anion Gap 10 (6-14) 10 (6-14) Blood Urea Nitrogen 36mg/dL (8-26) 42mg/dL (8-26) Creatinine 1.7mg/dL (0.7-1.3) 1.7mg/dL (0.7-1.3) Estimated GFR (Cockcroft-Gault) 54.9 54.9 Glucose Level 125mg/dL (70-99) 115mg/dL (70-99) Calcium Level 8.9mg/dL (8.5-10.1) 9.0mg/dL (8.5-10.1) Phosphorus Level 4.3mg/dL (2.6-4.7) 4.0mg/dL (2.6-4.7) Magnesium Level 2.1mg/dL (1.8-2.4) 2.3mg/dL (1.8-2.4) 2.0mg/dL (1.8-2.4) Albumin 2.2g/dL (3.4-5.0) 2.4g/dL (3.4-5.0) Triglycerides Level 84mg/dL (0-150) Cholesterol Level 200mg/dL (0-200) LDL Cholesterol, Calculated 154mg/dL (0-100) VLDL Cholesterol, Calculated 17mg/dL (0-40) HDL Cholesterol 29mg/dL (40-60) Cholesterol/HDL Ratio 6.9 White Blood Count 15.1x10^3/uL (4.0-11.0) Red Blood Count 2.50x10^6/uL (4.30-5.70) Hemoglobin 8.0g/dL (13.0-17.5) Hematocrit 24.6% (39.0-53.0) Mean Corpuscular Volume 98fL (79-100) Mean Corpuscular Hemoglobin 32pg (25-35) Mean Corpuscular Hemoglobin Concent 33g/dL (31-37) Red Cell Distribution Width 16.5% (11.5-14.5) Platelet Count 187x10^3/uL (140-400) Neutrophils (%) (Auto) 85% (31-73) Lymphocytes (%) (Auto) 5% (24-48) Monocytes (%) (Auto) 11% (0-9) Eosinophils (%) (Auto) 0% (0-3) Basophils (%) (Auto) 0% (0-3) Neutrophils # (Auto) 12.8x10^3uL (1.8-7.7) Lymphocytes # (Auto) 0.7x10^3/uL (1.0-4.8) Monocytes # (Auto) 1.6x10^3/uL (0.0-1.1) Eosinophils # (Auto) 0.0x10^3/uL (0.0-0.7) Basophils # (Auto) 0.0x10^3/uL (0.0-0.2) Segmented Neutrophils % 80% (35-66) Band Neutrophils % 2% (0-9) Lymphocytes % 7% (24-48) Monocytes % 10% (0-10) Myelocytes % 1% (0-0) Platelet Estimate Adequate (ADEQUATE) Target Cells Present BUN/Creatinine Ratio 25 (6-20) Total Bilirubin 1.3mg/dL (0.2-1.0) Aspartate Amino Transf (AST/SGOT) 60U/L (15-37) Alanine Aminotransferase (ALT/SGPT) 31U/L (16-63) Alkaline Phosphatase 307U/L (46-116) Total Protein 8.6g/dL (6.4-8.2) Albumin/Globulin Ratio 0.4 (1.0-1.7) Laboratory Tests Test 08/28/16 04:50 08/28/16 07:31 Magnesium Level 2.3mg/dL (1.8-2.4) 2.0mg/dL (1.8-2.4) White Blood Count 15.1x10^3/uL (4.0-11.0) Red Blood Count 2.50x10^6/uL (4.30-5.70) Hemoglobin 8.0g/dL (13.0-17.5) Hematocrit 24.6% (39.0-53.0) Mean Corpuscular Volume 98fL (79-100) Mean Corpuscular Hemoglobin 32pg (25-35) Mean Corpuscular Hemoglobin Concent 33g/dL (31-37) Red Cell Distribution Width 16.5% (11.5-14.5) Platelet Count 187x10^3/uL (140-400) Neutrophils (%) (Auto) 85% (31-73) Lymphocytes (%) (Auto) 5% (24-48) Monocytes (%) (Auto) 11% (0-9) Eosinophils (%) (Auto) 0% (0-3) Basophils (%) (Auto) 0% (0-3) Neutrophils # (Auto) 12.8x10^3uL (1.8-7.7) Lymphocytes # (Auto) 0.7x10^3/uL (1.0-4.8) Monocytes # (Auto) 1.6x10^3/uL (0.0-1.1) Eosinophils # (Auto) 0.0x10^3/uL (0.0-0.7) Basophils # (Auto) 0.0x10^3/uL (0.0-0.2) Segmented Neutrophils % 80% (35-66) Band Neutrophils % 2% (0-9) Lymphocytes % 7% (24-48) Monocytes % 10% (0-10) Myelocytes % 1% (0-0) Platelet Estimate Adequate (ADEQUATE) Target Cells Present Sodium Level 138mmol/L (136-145) Potassium Level 4.2mmol/L (3.5-5.1) Chloride Level 104mmol/L (98-107) Carbon Dioxide Level 24mmol/L (21-32) Anion Gap 10 (6-14) Blood Urea Nitrogen 42mg/dL (8-26) Creatinine 1.7mg/dL (0.7-1.3) Estimated GFR (Cockcroft-Gault) 54.9 BUN/Creatinine Ratio 25 (6-20) Glucose Level 115mg/dL (70-99) Calcium Level 9.0mg/dL (8.5-10.1) Phosphorus Level 4.0mg/dL (2.6-4.7) Total Bilirubin 1.3mg/dL (0.2-1.0) Aspartate Amino Transf (AST/SGOT) 60U/L (15-37) Alanine Aminotransferase (ALT/SGPT) 31U/L (16-63) Alkaline Phosphatase 307U/L (46-116) Total Protein 8.6g/dL (6.4-8.2) Albumin 2.4g/dL (3.4-5.0) Albumin/Globulin Ratio 0.4 (1.0-1.7) Microbiology 08/24/16 Blood Culture - Preliminary, Resulted NO GROWTH AFTER 3 DAYS Medications Current Medications Albuterol/ Ipratropium (Duoneb) 6 ml 1X ONCE NEB Last administered on t 13:11; Start 08/24/16 at 13:30; Stop 08/24/16 at 13:31; Status DC Albuterol Sulfate (Ventolin Neb Soln) 2.5 mg STK-MED ONCE .ROUTE ; Start at 13:06; Stop 08/24/16 at 13:07; Status DC Albuterol/ Ipratropium (Duoneb) 3 ml STK-MED ONCE .ROUTE ; Start 08/24/16 at 13: 06; Stop 08/24/16 at 13:07; Status DC Ondansetron HCl (Zofran) 4 mg PRN Q8HRS PRN IV NAUSEA/VOMITING; Start 08/24/16 at 15:30; Stop 08/25/16 at 15:29; Status DC Fentanyl Citrate 50 mcg 50 mcg PRN Q2HR PRN IV PAIN; Start 08/24/16 at 15:30; Stop 08/25/16 at 15:29; Status DC Sodium Chloride (Iv Sodium Chloride 0.9% 1000ml Bag) 1,000 ml @ 100 mls/hr Q10H IV Last administered on 08/24/16 17:57; Start 08/24/16 at 16:00; Stop at 15:59; Status DC Albuterol/ Ipratropium (Duoneb) 3 ml RTQID NEB Last administered on 08/25/16 15 :02; Start 08/24/16 at 16:00; Stop 08/25/16 at 15:59; Status DC Levofloxacin/ Dextrose 1 each 1 each PRN DAILY PRN MC SEE COMMENTS; Start at 15:30; Stop 08/28/16 at 13:47; Status DC Levofloxacin/ Dextrose (LEVAQUIN 500mg PREMIX) 100 ml @ 100 mls/hr Q24H IV Last administered on 08/27/16 16:35; Start 08/24/16 at 16:00 Nicotine (Nicoderm Cq 21mg) 1 patch PRN DAILY PRN TD SMOKING CESSATION Last administered on 08/27/16 14:38; Start 08/24/16 at 16:15 Nicotine Polacrilex (Nicorette Gum) 1 each PRN Q1HR PRN BC SMOKING CESSATION; Start 08/24/16 at 16:15 Pantoprazole Sodium (Protonix Vial) 40 mg 1X ONCE IVP Last administered on 08/24 17:57; Start 08/24/16 at 16:15; Stop 08/24/16 at 16:17; Status DC Pantoprazole Sodium (Protonix) 40 mg BID PO Last administered on 08/28/16 08:12 ; Start 08/24/16 at 21:00 Bupropion HCl (Wellbutrin) 100 mg BID PO Last administered on 08/28/16 08:12; Start 08/24/16 at 21:00 Furosemide (Lasix) 20 mg DAILY PO Last administered on 08/25/16 08:19; Start at 17:00; Stop 08/25/16 at 13:03; Status DC Haloperidol (Haldol) 2 mg HS PO Last administered on 08/27/16 20:06; Start 08/24 at 21:00 Magnesium Oxide (Magnesium Oxide) 400 mg DAILY PO Last administered on 08:12; Start 08/25/16 at 09:00 Non-Formulary Medication 40 mg DAILY PO ; Start 08/25/16 at 09:00; Status UNV Enoxaparin Sodium (Lovenox Per Pharmacy Prophylaxis Dosing) 1 each PRN DAILY PRN MC SEE COMMENTS; Start 08/24/16 at 16:45; Stop 08/28/16 at 13:47; Status DC Furosemide (Lasix) 80 mg 1X ONCE IVP Last administered on 08/24/16 17:57; Start 08/24/16 at 17:00; Stop 08/24/16 at 17:01; Status DC Enoxaparin Sodium (Lovenox 60mg Syringe) 60 mg Q12HR SQ Last administered on 08:14; Start 08/24/16 at 21:00 Furosemide (Lasix) 40 mg DAILY IVP Last administered on 08/25/16 14:22; Start 08/25/16 at 14:00; Stop 08/25/16 at 15:07; Status DC Thiamine HCl (Vitamin B-1) 100 mg DAILY PO Last administered on 08/28/16 08:12 ; Start 08/25/16 at 14:15 Vitamin B Complex (Folbic Tablet) 1 tab DAILY PO Last administered on 08/28/16 08:12; Start 08/26/16 at 09:00 Lorazepam (Ativan) 2 mg PRN Q1HR PRN IV For CIWA 8-14; Start 08/25/16 at 14:15 Lorazepam (Ativan) 4 mg PRN Q1HR PRN IV For CIWA 15 or greater; Start 08/25/16 at 14:15 Lorazepam (Ativan) 1 mg DAILY PO Last administered on 08/28/16 08:12; Start 08/25/16 at 14:15 Methylprednisolone Sodium Succinate 40 mg 40 mg Q8HRS IV Last administered on 13:47; Start 08/25/16 at 15:00 Sodium Chloride 500 ml @ 0 mls/hr PRN QID PRN IV UO< 30cc/hr over previous 6hrs ; Start 08/25/16 at 15:15 Magnesium Sulfate/ Dextrose (Magnesium Sulfate PREMIX 2GM) 50 ml @ 25 mls/hr PRN DAILY PRN IV for Mag < 1.7 on am labs; Start 08/25/16 at 15:15 Albuterol/ Ipratropium (Duoneb) 3 ml RTQID NEB Last administered on 08/28/16t 11 :37; Start 08/25/16 at 20:00 Albuterol Sulfate (Ventolin Neb Soln) 2.5 mg PRN Q2HR PRN NEB SHORTNESS OF BREATH; Start 08/25/16 at 19:45 Active Scripts Active Lasix (Furosemide) 20 Mg Tablet 1 Tab PO DAILY Magnesium Oxide 400 Mg Tablet 1 Tab PO DAILY Reported Wellbutrin (Bupropion Hcl) 100 Mg Tablet Unknown Dose PO BID Haloperidol 2 Mg Tablet Unknown Dose PO Prilosec (Omeprazole) 40 Mg Capsule.dr 40 Mg PO DAILY Exforge 5-160 Mg Tablet (Amlodipine/Valsartan) 1 Each Tablet Unknown Dose PO Vitals/I & O Vital Sign - Last 24 Hours 08/27/16 08/27/16 08/27/16 08/27/16 15:00 16:20 19:00 19:51 Temp 99.0 96.6 99.0 96.6 Pulse 89 91 Resp 20 20 B/P 120/68 127/74 Pulse Ox 98 100 99 O2 Delivery Nasal Cannula Nasal Cannula Nasal Cannula Nasal Cannula O2 Flow Rate 2.0 2.0 2.0 2.0 08/27/16 08/27/16 08/28/16 08/28/16 20:00 22:49 02:48 07:00 Temp 99.7 99.5 97.7 99.7 99.5 97.7 Pulse 93 89 91 Resp 22 22 24 B/P 124/70 113/63 139/83 Pulse Ox 95 96 95 O2 Delivery Nasal Cannula Nasal Cannula Nasal Cannula Nasal Cannula O2 Flow Rate 2.0 2.0 2.0 2.0 08/28/16 08/28/16 08/28/16 08/28/16 08:00 08:58 11:00 11:39 Temp 97.4 97.4 Pulse 89 Resp 24 B/P 143/88 Pulse Ox 100 96 O2 Delivery Nasal Cannula Nasal Cannula Nasal Cannula Nasal Cannula O2 Flow Rate 2.0 2.0 2.0 2.0 Intake and Output 08/27/16 08/27/16 08/28/16 15:00 23:00 07:00 Intake Total 555 ml 710 ml 100 ml Output Total 600 ml 250 ml 750 ml Balance -45 ml 460 ml -650 ml DAMION MAJOR MD Aug 28, 2016 14:15
[2016-08-28 15:00] VITALS: BP 137/80
--- NOTE | 2016-08-28 17:20 | PDOC ---
Provider Note Provider Note RENAL F/U : JANETH S : Feels OK. No new c/o No active CP or SOA. O : VSSAFberile. Alert. Neck ; Supple Lungs : Non labored. Decreased bases. CVS : RRR + S3 Abd : Porlty, sl distended. No masses. Non tender. Ext : 1 +edema. Neuro ; Grossly intact. Labs, meds and I/Os : Reviewed. ARF/ATN. CKD HTN w CKD EDEMA ANEMIA of CKD. Labs stable. CPM. Multiple myeloma w.u. RASHAWN FOWLER MD Aug 28, 2016 17:20
[2016-08-28 19:00] VITALS: BP 142/87
[2016-08-28] MEDS: HALOPERIDOL 2 MG TABLET. PO SCH (20:59)
[2016-08-28 22:59] VITALS: BP 129/69
[2016-08-29 03:00] VITALS: BP 131/80
[2016-08-29] MEDS: NICOTINE 21MG PATCH. TD PRN (03:13)
[2016-08-29 06:09] LABS: ALBUMIN 2.3 g/dL (3.4-5.0); CALCIUM 9.1 mg/dL (8.5-10.1); CREATININE 1.6 mg/dL (0.7-1.3); GFR 58.8; PHOSPHORUS 3.6 mg/dL (2.6-4.7); POTASSIUM 4.1 mmol/L (3.5-5.1)
[2016-08-29] MEDS: methylPREDNISolone SOD SUCC PF 40 MG/ML VIAL. IV SCH ×3 (06:13→21:26)
[2016-08-29 07:00] VITALS: BP 142/82
--- NOTE | 2016-08-29 07:36 | PDOC ---
PULMONARY PROGRESS NOTES Subjective no increase in soa, has occ cough, has nasal congestion, no pain Vitals Vital Signs Date Time Temp Pulse Resp B/P Pulse Ox O2 Delivery O2 Flow Rate FiO2 08/29/16 03:00 98.8 98 18 131/80 92 Nasal Cannula 2.0 98.8 ROS: No Nausea, No Chest Pain, No Abdominal Pain, No Increase Cough General: Alert, No acute distress HEENT: Other (nc at perrl, shallow oropharynx. nose inflamed mucosa) Lungs: Other (few ant rhonchi) Cardiovascular: S1, S2 Abdomen: Soft, Non-tender, Other (markedly obese) Neuro Exam: Alert Extremities: Other (2+edema) Skin: Warm Labs Laboratory Tests Test 08/28/16 04:50 08/28/16 07:31 08/29/16 05:00 Magnesium Level 2.3mg/dL (1.8-2.4) 2.0mg/dL (1.8-2.4) 2.1mg/dL (1.8-2.4) White Blood Count 15.1x10^3/uL (4.0-11.0) Red Blood Count 2.50x10^6/uL (4.30-5.70) Hemoglobin 8.0g/dL (13.0-17.5) Hematocrit 24.6% (39.0-53.0) Mean Corpuscular Volume 98fL (79-100) Mean Corpuscular Hemoglobin 32pg (25-35) Mean Corpuscular Hemoglobin Concent 33g/dL (31-37) Red Cell Distribution Width 16.5% (11.5-14.5) Platelet Count 187x10^3/uL (140-400) Neutrophils (%) (Auto) 85% (31-73) Lymphocytes (%) (Auto) 5% (24-48) Monocytes (%) (Auto) 11% (0-9) Eosinophils (%) (Auto) 0% (0-3) Basophils (%) (Auto) 0% (0-3) Neutrophils # (Auto) 12.8x10^3uL (1.8-7.7) Lymphocytes # (Auto) 0.7x10^3/uL (1.0-4.8) Monocytes # (Auto) 1.6x10^3/uL (0.0-1.1) Eosinophils # (Auto) 0.0x10^3/uL (0.0-0.7) Basophils # (Auto) 0.0x10^3/uL (0.0-0.2) Segmented Neutrophils % 80% (35-66) Band Neutrophils % 2% (0-9) Lymphocytes % 7% (24-48) Monocytes % 10% (0-10) Myelocytes % 1% (0-0) Platelet Estimate Adequate (ADEQUATE) Target Cells Present Sodium Level 138mmol/L (136-145) 138mmol/L (136-145) Potassium Level 4.2mmol/L (3.5-5.1) 4.1mmol/L (3.5-5.1) Chloride Level 104mmol/L (98-107) 103mmol/L (98-107) Carbon Dioxide Level 24mmol/L (21-32) 25mmol/L (21-32) Anion Gap 10 (6-14) 10 (6-14) Blood Urea Nitrogen 42mg/dL (8-26) 41mg/dL (8-26) Creatinine 1.7mg/dL (0.7-1.3) 1.6mg/dL (0.7-1.3) Estimated GFR (Cockcroft-Gault) 54.9 58.8 BUN/Creatinine Ratio 25 (6-20) Glucose Level 115mg/dL (70-99) 115mg/dL (70-99) Calcium Level 9.0mg/dL (8.5-10.1) 9.1mg/dL (8.5-10.1) Phosphorus Level 4.0mg/dL (2.6-4.7) 3.6mg/dL (2.6-4.7) Total Bilirubin 1.3mg/dL (0.2-1.0) Aspartate Amino Transf (AST/SGOT) 60U/L (15-37) Alanine Aminotransferase (ALT/SGPT) 31U/L (16-63) Alkaline Phosphatase 307U/L (46-116) Total Protein 8.6g/dL (6.4-8.2) Albumin 2.4g/dL (3.4-5.0) 2.3g/dL (3.4-5.0) Albumin/Globulin Ratio 0.4 (1.0-1.7) Laboratory Tests Test 08/29/16 05:00 Sodium Level 138mmol/L (136-145) Potassium Level 4.1mmol/L (3.5-5.1) Chloride Level 103mmol/L (98-107) Carbon Dioxide Level 25mmol/L (21-32) Anion Gap 10 (6-14) Blood Urea Nitrogen 41mg/dL (8-26) Creatinine 1.6mg/dL (0.7-1.3) Estimated GFR (Cockcroft-Gault) 58.8 Glucose Level 115mg/dL (70-99) Calcium Level 9.1mg/dL (8.5-10.1) Phosphorus Level 3.6mg/dL (2.6-4.7) Magnesium Level 2.1mg/dL (1.8-2.4) Albumin 2.3g/dL (3.4-5.0) Medications Active Scripts Medications Dose Route/Sig Days Date Category Lasix (Furosemide) 20 Mg Tablet 1 Tab PO DAILY 06/11/16 Rx Magnesium Oxide 400 Mg Tablet 1 Tab PO DAILY 06/11/16 Rx Wellbutrin (Bupropion Hcl) 100 Mg Tablet Unknown Dose PO BID 08/14/14 Reported Haloperidol 2 Mg Tablet Unknown Dose PO 08/14/14 Reported Prilosec (Omeprazole) 40 Mg Capsule.dr 40 Mg PO DAILY 08/14/14 Reported Exforge 5-160 Mg Tablet (Amlodipine/Valsartan) 1 Each Tablet Unknown Dose PO 08/14/[address] CHEST 1. Left greater than right upper lobe groundglass opacity. No pleural effusion is identified. The findings could represent nonspecific infectious or inflammatory process. Asymmetric pulmonary edema is thought less likely, but still possible. 2. Body wall edema. Ascites. 3. Fatty liver disease. 4. Cholelithiasis. Impression . 1. Progressive dyspnea with 80-pound weight gain in last 6 months and with mild interstitial infiltrates in a morbidly obese patient with a BMI of 59. Most likely, this is [id number] cor pulmonale. 2. Suspect chronic renal insufficiency. now acute on chronic 3. History of tobaccoism, possible underlying chronic obstructive pulmonary disease. 4. Morbid obesity, prob bishnu 5. allergic rhinitis Plan . 1. keep I<O, monitor k, cr. 2. Echocardiogram.reviewed 3. Noncontrast CT chest reviewed. Left greater than right, upper lobe ground glass opacity. No pleural effusion is identified. The findings could represent nonspecific infectious or inflammatory process. Asymmetric pulmonary edema is also a possibility but less likely.on steroids/antibiotics 4. Weight loss, strongly emphasized. 5. Follow cxr as needed 6. Improve nutritional status. Albumin level is 2.2. 7. psg as out pt 8. add cassidy guardado w pt GONZALES MADRIGAL MD Aug 29, 2016 07:36
[2016-08-29] MEDS: LORAZEPAM 1 MG TABLET. PO SCH (08:17)
[2016-08-29] MEDS: PANTOPRAZOLE 40 MG TABLET.DR. PO SCH ×2 (08:17→21:26)
[2016-08-29] MEDS: MAGNESIUM OXIDE 400 MG TABLET PO SCH (08:17)
[2016-08-29] MEDS: THIAMINE 100 MG TABLET. PO SCH (08:17)
[2016-08-29] MEDS: buPROPion 100 MG TABLET PO SCH ×2 (08:17→21:26)
[2016-08-29] MEDS: IPRATRPIUM/ALBUTEROL 0.5/2.5MG 3 ML NEBU. NEB SCH ×4 (08:22→18:42)
[2016-08-29] MEDS: VITAMIN B12,B9,B6 COMPLEX 1 TABLET. PO SCH (08:36)
[2016-08-29 10:52] VITALS: BP 136/85
[2016-08-29 15:00] VITALS: BP 109/76
--- NOTE | 2016-08-29 15:25 | PDOC ---
PROGRESS NOTES Chief Complaint Chief Complaint 1. Progressive dyspnea with 80-pound weight gain in last 6 months and with mild interstitial infiltrates in a morbidly obese patient with a BMI of 59. Most likely, this is [id number] cor pulmonale. 2. Suspect chronic renal insufficiency. now acute on chronic stage 3 3. History of tobaccoism, possible underlying chronic obstructive pulmonary disease. 4. Morbid obesity, prob bishnu, pickwinian 5. SIRS POA, no sepsis 6. Anemia of CKD 7. anxiety, depression, schizotypal History of Present Illness History of Present Illness Breathing better MOrbidly obese Niño in with good UO - claims dark urine, concerned with blood in his urine Claims had blood in stool at home NOt on CPAP at home, never had sleep study done per Gi note: Hepatitis- with pneumonia, likely secondary to congestion, await serologies Rectal bleeding- etiology to be determined. Colonoscopy either as inpt or otpt once pulmonary status improved Walked the halls yesterday tuesday appetite improved Mult Myeloma w/u pending PLAn: CPM MM work up PT/OT I and O Recheck UA Vitals Vitals Vital Signs Date Time Temp Pulse Resp B/P Pulse Ox O2 Delivery O2 Flow Rate FiO2 08/29/16 15:00 98.0 94 18 109/76 100 Nasal Cannula 2.0 98.0 Physical Exam General: Alert, Oriented X3, Cooperative, No acute distress Heart: Regular rate, Normal S1, Normal S2, Other (2/6 systolic murmur ) Lungs: Other (few ant rhonchi) Abdomen: Soft, Other (ascites ) Extremities: Normal pulses, Other (2+ bilateral LE edema , diffuse thickening of pretibial skin) Skin: No breakdown, No significant lesion Labs LABS Laboratory Tests Test 08/29/16 05:00 Sodium Level 138mmol/L (136-145) Potassium Level 4.1mmol/L (3.5-5.1) Chloride Level 103mmol/L (98-107) Carbon Dioxide Level 25mmol/L (21-32) Anion Gap 10 (6-14) Blood Urea Nitrogen 41mg/dL (8-26) Creatinine 1.6mg/dL (0.7-1.3) Estimated GFR (Cockcroft-Gault) 58.8 Glucose Level 115mg/dL (70-99) Calcium Level 9.1mg/dL (8.5-10.1) Phosphorus Level 3.6mg/dL (2.6-4.7) Magnesium Level 2.1mg/dL (1.8-2.4) Albumin 2.3g/dL (3.4-5.0) Review of Systems Review of Systems blood in urine, no inc in soa, cp, n,v,d Assessment and Plan Assessmemt and Plan Problems Medical Problems: (1) Anasarca Status: Acute (2) Anemia Status: Acute (3) Community acquired pneumonia Status: Acute (4) Congestive heart failure Status: Acute (5) Severe protein-calorie malnutrition Status: Acute Problems: Comment Review of Relevant I have reviewed the following items maci (where applicable) has been applied. Labs Laboratory Tests Test 08/28/16 04:50 08/28/16 07:31 08/29/16 05:00 Magnesium Level 2.3mg/dL (1.8-2.4) 2.0mg/dL (1.8-2.4) 2.1mg/dL (1.8-2.4) White Blood Count 15.1x10^3/uL (4.0-11.0) Red Blood Count 2.50x10^6/uL (4.30-5.70) Hemoglobin 8.0g/dL (13.0-17.5) Hematocrit 24.6% (39.0-53.0) Mean Corpuscular Volume 98fL (79-100) Mean Corpuscular Hemoglobin 32pg (25-35) Mean Corpuscular Hemoglobin Concent 33g/dL (31-37) Red Cell Distribution Width 16.5% (11.5-14.5) Platelet Count 187x10^3/uL (140-400) Neutrophils (%) (Auto) 85% (31-73) Lymphocytes (%) (Auto) 5% (24-48) Monocytes (%) (Auto) 11% (0-9) Eosinophils (%) (Auto) 0% (0-3) Basophils (%) (Auto) 0% (0-3) Neutrophils # (Auto) 12.8x10^3uL (1.8-7.7) Lymphocytes # (Auto) 0.7x10^3/uL (1.0-4.8) Monocytes # (Auto) 1.6x10^3/uL (0.0-1.1) Eosinophils # (Auto) 0.0x10^3/uL (0.0-0.7) Basophils # (Auto) 0.0x10^3/uL (0.0-0.2) Segmented Neutrophils % 80% (35-66) Band Neutrophils % 2% (0-9) Lymphocytes % 7% (24-48) Monocytes % 10% (0-10) Myelocytes % 1% (0-0) Platelet Estimate Adequate (ADEQUATE) Target Cells Present Sodium Level 138mmol/L (136-145) 138mmol/L (136-145) Potassium Level 4.2mmol/L (3.5-5.1) 4.1mmol/L (3.5-5.1) Chloride Level 104mmol/L (98-107) 103mmol/L (98-107) Carbon Dioxide Level 24mmol/L (21-32) 25mmol/L (21-32) Anion Gap 10 (6-14) 10 (6-14) Blood Urea Nitrogen 42mg/dL (8-26) 41mg/dL (8-26) Creatinine 1.7mg/dL (0.7-1.3) 1.6mg/dL (0.7-1.3) Estimated GFR (Cockcroft-Gault) 54.9 58.8 BUN/Creatinine Ratio 25 (6-20) Glucose Level 115mg/dL (70-99) 115mg/dL (70-99) Calcium Level 9.0mg/dL (8.5-10.1) 9.1mg/dL (8.5-10.1) Phosphorus Level 4.0mg/dL (2.6-4.7) 3.6mg/dL (2.6-4.7) Total Bilirubin 1.3mg/dL (0.2-1.0) Aspartate Amino Transf (AST/SGOT) 60U/L (15-37) Alanine Aminotransferase (ALT/SGPT) 31U/L (16-63) Alkaline Phosphatase 307U/L (46-116) Total Protein 8.6g/dL (6.4-8.2) Albumin 2.4g/dL (3.4-5.0) 2.3g/dL (3.4-5.0) Albumin/Globulin Ratio 0.4 (1.0-1.7) Laboratory Tests Test 08/29/16 05:00 Sodium Level 138mmol/L (136-145) Potassium Level 4.1mmol/L (3.5-5.1) Chloride Level 103mmol/L (98-107) Carbon Dioxide Level 25mmol/L (21-32) Anion Gap 10 (6-14) Blood Urea Nitrogen 41mg/dL (8-26) Creatinine 1.6mg/dL (0.7-1.3) Estimated GFR (Cockcroft-Gault) 58.8 Glucose Level 115mg/dL (70-99) Calcium Level 9.1mg/dL (8.5-10.1) Phosphorus Level 3.6mg/dL (2.6-4.7) Magnesium Level 2.1mg/dL (1.8-2.4) Albumin 2.3g/dL (3.4-5.0) Microbiology 08/24/16 Blood Culture - Preliminary, Resulted NO GROWTH AFTER 4 DAYS Medications Current Medications Albuterol/ Ipratropium (Duoneb) 6 ml 1X ONCE NEB Last administered on 13:11; Start 08/24/16 at 13:30; Stop 08/24/16 at 13:31; Status DC Albuterol Sulfate (Ventolin Neb Soln) 2.5 mg STK-MED ONCE .ROUTE ; Start at 13:06; Stop 08/24/16 at 13:07; Status DC Albuterol/ Ipratropium (Duoneb) 3 ml STK-MED ONCE .ROUTE ; Start 08/24/16 at 13: 06; Stop 08/24/16 at 13:07; Status DC Ondansetron HCl (Zofran) 4 mg PRN Q8HRS PRN IV NAUSEA/VOMITING; Start 08/24/16 at 15:30; Stop 08/25/16 at 15:29; Status DC Fentanyl Citrate 50 mcg 50 mcg PRN Q2HR PRN IV PAIN; Start 08/24/16 at 15:30; Stop 08/25/16 at 15:29; Status DC Sodium Chloride (Iv Sodium Chloride 0.9% 1000ml Bag) 1,000 ml @ 100 mls/hr Q10H IV Last administered on 4/4/17at 17:57; Start 08/24/16 at 16:00; Stop at 15:59; Status DC Albuterol/ Ipratropium (Duoneb) 3 ml RTQID NEB Last administered on 08/25/16 15 :02; Start 08/24/16 at 16:00; Stop 08/25/16 at 15:59; Status DC Levofloxacin/ Dextrose 1 each 1 each PRN DAILY PRN MC SEE COMMENTS; Start at 15:30; Stop 08/28/16 at 13:47; Status DC Levofloxacin/ Dextrose (LEVAQUIN 500mg PREMIX) 100 ml @ 100 mls/hr Q24H IV Last administered on 08/28/16 16:19; Start 08/24/16 at 16:00 Nicotine (Nicoderm Cq 21mg) 1 patch PRN DAILY PRN TD SMOKING CESSATION Last administered on 08/29/16 03:13; Start 08/24/16 at 16:15 Nicotine Polacrilex (Nicorette Gum) 1 each PRN Q1HR PRN BC SMOKING CESSATION; Start 08/24/16 at 16:15 Pantoprazole Sodium (Protonix Vial) 40 mg 1X ONCE IVP Last administered on 08/24 17:57; Start 08/24/16 at 16:15; Stop 08/24/16 at 16:17; Status DC Pantoprazole Sodium (Protonix) 40 mg BID PO Last administered on 08/29/16 08:17 ; Start 08/24/16 at 21:00 Bupropion HCl (Wellbutrin) 100 mg BID PO Last administered on 08/29/16 08:17; Start 08/24/16 at 21:00 Furosemide (Lasix) 20 mg DAILY PO Last administered on 08/25/16 08:19; Start at 17:00; Stop 08/25/16 at 13:03; Status DC Haloperidol (Haldol) 2 mg HS PO Last administered on 08/28/16 20:59; Start 08/24 at 21:00 Magnesium Oxide (Magnesium Oxide) 400 mg DAILY PO Last administered on 08:17; Start 08/25/16 at 09:00 Non-Formulary Medication 40 mg DAILY PO ; Start 08/25/16 at 09:00; Status UNV Enoxaparin Sodium (Lovenox Per Pharmacy Prophylaxis Dosing) 1 each PRN DAILY PRN MC SEE COMMENTS; Start 08/24/16 at 16:45; Stop 08/28/16 at 13:47; Status DC Furosemide (Lasix) 80 mg 1X ONCE IVP Last administered on 08/24/16 17:57; Start 08/24/16 at 17:00; Stop 08/24/16 at 17:01; Status DC Enoxaparin Sodium (Lovenox 60mg Syringe) 60 mg Q12HR SQ Last administered on 08:19; Start 08/24/16 at 21:00 Furosemide (Lasix) 40 mg DAILY IVP Last administered on 08/25/16 14:22; Start 08/25/16 at 14:00; Stop 08/25/16 at 15:07; Status DC Thiamine HCl (Vitamin B-1) 100 mg DAILY PO Last administered on 08/29/16 08:17 ; Start 08/25/16 at 14:15 Vitamin B Complex (Folbic Tablet) 1 tab DAILY PO Last administered on 08/29/16 08:36; Start 08/26/16 at 09:00 Lorazepam (Ativan) 2 mg PRN Q1HR PRN IV For CIWA 8-14; Start 08/25/16 at 14:15 Lorazepam (Ativan) 4 mg PRN Q1HR PRN IV For CIWA 15 or greater; Start 08/25/16 at 14:15 Lorazepam (Ativan) 1 mg DAILY PO Last administered on 08/29/16 08:17; Start 08/25/16 at 14:15 Methylprednisolone Sodium Succinate 40 mg 40 mg Q8HRS IV Last administered on 13:46; Start 08/25/16 at 15:00 Sodium Chloride 500 ml @ 0 mls/hr PRN QID PRN IV UO< 30cc/hr over previous 6hrs ; Start 08/25/16 at 15:15 Magnesium Sulfate/ Dextrose (Magnesium Sulfate PREMIX 2GM) 50 ml @ 25 mls/hr PRN DAILY PRN IV for Mag < 1.7 on am labs; Start 08/25/16 at 15:15 Albuterol/ Ipratropium (Duoneb) 3 ml RTQID NEB Last administered on 08/29/16t 11 :08; Start 08/25/16 at 20:00 Albuterol Sulfate (Ventolin Neb Soln) 2.5 mg PRN Q2HR PRN NEB SHORTNESS OF BREATH; Start 08/25/16 at 19:45 Active Scripts Active Lasix (Furosemide) 20 Mg Tablet 1 Tab PO DAILY Magnesium Oxide 400 Mg Tablet 1 Tab PO DAILY Reported Wellbutrin (Bupropion Hcl) 100 Mg Tablet Unknown Dose PO BID Haloperidol 2 Mg Tablet Unknown Dose PO Prilosec (Omeprazole) 40 Mg Capsule.dr 40 Mg PO DAILY Exforge 5-160 Mg Tablet (Amlodipine/Valsartan) 1 Each Tablet Unknown Dose PO Vitals/I & O Vital Sign - Last 24 Hours 08/28/16 08/28/16 08/28/16 08/28/16 17:59 19:00 20:00 20:33 Temp 99.3 99.3 Pulse 94 Resp 18 B/P 142/87 Pulse Ox 95 97 O2 Delivery Nasal Cannula Nasal Cannula Nasal Cannula Nasal Cannula O2 Flow Rate 2.0 2.0 3.0 3.0 08/28/16 08/29/16 08/29/16 08/29/16 22:59 03:00 07:00 08:23 Temp 99.0 98.8 98.0 99.0 98.8 98.0 Pulse 96 98 88 Resp 18 18 18 B/P 129/69 131/80 142/82 Pulse Ox 94 92 97 99 O2 Delivery Nasal Cannula Nasal Cannula Nasal Cannula Nasal Cannula O2 Flow Rate 2.0 2.0 2.0 3.0 08/29/16 08/29/16 08/29/16 10:52 11:08 15:00 Temp 98.0 98.0 98.0 98.0 Pulse 84 94 Resp 18 18 B/P 136/85 109/76 Pulse Ox 96 100 O2 Delivery Nasal Cannula Nasal Cannula Nasal Cannula O2 Flow Rate 2.0 3.0 2.0 Intake and Output 08/28/16 08/28/16 08/29/16 15:00 23:00 07:00 Intake Total 1360 ml 1060 ml 1200 ml Output Total 350 ml 900 ml 1650 ml Balance 1010 ml 160 ml -450 ml DAMION MAJOR MD Aug 29, 2016 15:24
[2016-08-29 19:00] VITALS: BP 132/71
[2016-08-29] MEDS: HALOPERIDOL 2 MG TABLET. PO SCH (21:27)
[2016-08-29 23:00] VITALS: BP 143/80
[2016-08-30 03:00] VITALS: BP 138/78
[2016-08-30 06:02] LABS: ALBUMIN 2.3 g/dL (3.4-5.0); CALCIUM 8.7 mg/dL (8.5-10.1); CREATININE 1.5 mg/dL (0.7-1.3); GFR 63.4; PHOSPHORUS 3.5 mg/dL (2.6-4.7); POTASSIUM 4.3 mmol/L (3.5-5.1)
[2016-08-30] MEDS: methylPREDNISolone SOD SUCC PF 40 MG/ML VIAL. IV SCH ×2 (06:19→13:47)
[2016-08-30 06:59] LABS: BILIRUBIN,URINE NEGATIVE (NEG); GLUCOSE,URINE NEGATIVE (NEG); NITRITE,URINE NEGATIVE (NEG); PROTEIN,URINE NEGATIVE (NEG-TRACE)
[2016-08-30 07:30] VITALS: BP 147/86
[2016-08-30 07:30] LABS: BACTERIA,URINE FEW /HPF (0-FEW); RBC,URINE 20-40 /HPF (0-2); SQUAMOUS EPITHELIAL CELL,UR OCC /LPF
[2016-08-30] MEDS: IPRATRPIUM/ALBUTEROL 0.5/2.5MG 3 ML NEBU. NEB SCH ×4 (07:36→20:29)
[2016-08-30] MEDS: MAGNESIUM OXIDE 400 MG TABLET PO SCH (08:17)
[2016-08-30] MEDS: buPROPion 100 MG TABLET PO SCH ×2 (08:17→21:04)
[2016-08-30] MEDS: LORAZEPAM 1 MG TABLET. PO SCH (08:17)
[2016-08-30] MEDS: VITAMIN B12,B9,B6 COMPLEX 1 TABLET. PO SCH (08:17)
[2016-08-30] MEDS: PANTOPRAZOLE 40 MG TABLET.DR. PO SCH ×2 (08:17→21:05)
[2016-08-30] MEDS: THIAMINE 100 MG TABLET. PO SCH (08:17)
[2016-08-30] MEDS: NICOTINE 21MG PATCH. TD PRN (10:12)
[2016-08-30 10:38] VITALS: BP 136/82
--- NOTE | 2016-08-30 11:09 | PDOC ---
Renal-Progress Notes Subjective Notes Notes NONE History of Present Illness Hx of present illness BETTER Vitals Vitals Vital Signs Date Time Temp Pulse Resp B/P Pulse Ox O2 Delivery O2 Flow Rate FiO2 08/30/16 10:38 97.6 89 17 136/82 92 Nasal Cannula 2.0 97.6 Weight Weight [ ] I.O. Intake and Output Intake and Output 08/30/16 07:00 Intake Total 880 ml Output Total 2950 ml Balance -2070 ml Intake Oral 880 ml Output Urine Total 2950 ml Labs Labs Laboratory Tests Test 08/30/16 04:00 08/30/16 04:22 Urine Collection Type U cath Urine Color Yellow Urine Clarity Clear Urine pH 6.0 Urine Specific Moran 1.015 Urine Protein Negativemg/dL (NEG-TRACE) Urine Glucose (UA) Negativemg/dL (NEG) Urine Ketones (Stick) Negativemg/dL (NEG) Urine Blood Large (NEG) Urine Nitrite Negative (NEG) Urine Bilirubin Negative (NEG) Urine Urobilinogen Dipstick 1.0mg/dL (0.2 mg/dL) Urine Leukocyte Esterase Moderate (NEG) Urine RBC 20-40/HPF (0-2) Urine WBC 5-10/HPF (0-4) Urine Squamous Epithelial Cells Occ/LPF Urine Bacteria Few/HPF (0-FEW) Urine Mucus Mod/LPF Sodium Level 139mmol/L (136-145) Potassium Level 4.3mmol/L (3.5-5.1) Chloride Level 104mmol/L (98-107) Carbon Dioxide Level 26mmol/L (21-32) Anion Gap 9 (6-14) Blood Urea Nitrogen 39mg/dL (8-26) Creatinine 1.5mg/dL (0.7-1.3) Estimated GFR (Cockcroft-Gault) 63.4 Glucose Level 116mg/dL (70-99) Calcium Level 8.7mg/dL (8.5-10.1) Phosphorus Level 3.5mg/dL (2.6-4.7) Magnesium Level 1.9mg/dL (1.8-2.4) Albumin 2.3g/dL (3.4-5.0) Micro Micro Microbiology 08/24/16 Blood Culture - Final, Complete NO GROWTH AFTER 5 DAYS Review of Systems Constitutional: yes: alert, oriented, weakness Ears/Nose/Throat: Yes: no symptom reported Eyes: Yes: no symptom reported Pulmonary: Yes no symptom reported Cardiovascular: Yes no symptom reported Gastrointestional: Yes: no symptom reported Genitourinary: Yes: no symptom reported Musculoskeletal: Yes: no symptom reported Psychiatric/Neurological: Yes: no symptom reported Physical Exam General Appearance: no apparent distress Skin: warm Respiratory: bilateral CTA Heart: S1S2, RRR Abdomen: soft, bowel sounds present Genitourinary: bladder flat Neurology: alert, oriented, follow commands Musculoskeletal: Other (elevated LFT's ) Assessment Assessment IMP HTN CKD STAGE 3 WITH CR AT BASELINE OF 1.5 MORBID OBESITY ANEMIA CAP PLAN CONT WITH ANTIBIOTICS D/C ARROYO ENC RENAL F/U AT D/C UNLIKELY HE HAS ANY NEPHRITIS MOST LIKELY HAS HTN RELATED NEPHROSCLEROSIS KATHERYN WATTERS MD Aug 30, 2016 11:08
--- NOTE | 2016-08-30 13:34 | PDOC ---
PROGRESS NOTES Chief Complaint Chief Complaint cc: Shortness of air -Anemia -GERD -GI bleed -Schizophrenia -Depression -Smoking -Urinary retention -Hypercholesterolemia -Hypertension History of Present Illness History of Present Illness The patient is doing well and conversing comfortably while laying in bed. He has no complaints. He reports he is breathing better and was able to wean himself off of oxygen. Additionally, there is no more blood in his stool. The tolbert has presently been removed. Vitals Vitals Vital Signs Date Time Temp Pulse Resp B/P Pulse Ox O2 Delivery O2 Flow Rate FiO2 08/30/16 11:42 Room Air 08/30/16 10:38 97.6 89 17 136/82 92 2.0 97.6 Physical Exam General: Alert, Cooperative, No acute distress Heart: Regular rate, Normal S1, Normal S2, Other (2/6 systolic murmur ) Lungs: Other (Rhonchi present when auscultated on anterior chest in multiple quadrants) Abdomen: Normal bowel sounds, Soft, Other (ascites ) Extremities: No cyanosis, Other (2+ bilateral LE edema ) Skin: No breakdown, No significant lesion Labs LABS Laboratory Tests Test 08/30/16 04:00 08/30/16 04:22 Urine Collection Type U cath Urine Color Yellow Urine Clarity Clear Urine pH 6.0 Urine Specific [place] 1.015 Urine Protein Negativemg/dL (NEG-TRACE) Urine Glucose (UA) Negativemg/dL (NEG) Urine Ketones (Stick) Negativemg/dL (NEG) Urine Blood Large (NEG) Urine Nitrite Negative (NEG) Urine Bilirubin Negative (NEG) Urine Urobilinogen Dipstick 1.0mg/dL (0.2 mg/dL) Urine Leukocyte Esterase Moderate (NEG) Urine RBC 20-40/HPF (0-2) Urine WBC 5-10/HPF (0-4) Urine Squamous Epithelial Cells Occ/LPF Urine Bacteria Few/HPF (0-FEW) Urine Mucus Mod/LPF Sodium Level 139mmol/L (136-145) Potassium Level 4.3mmol/L (3.5-5.1) Chloride Level 104mmol/L (98-107) Carbon Dioxide Level 26mmol/L (21-32) Anion Gap 9 (6-14) Blood Urea Nitrogen 39mg/dL (8-26) Creatinine 1.5mg/dL (0.7-1.3) Estimated GFR (Cockcroft-Gault) 63.4 Glucose Level 116mg/dL (70-99) Calcium Level 8.7mg/dL (8.5-10.1) Phosphorus Level 3.5mg/dL (2.6-4.7) Magnesium Level 1.9mg/dL (1.8-2.4) Albumin 2.3g/dL (3.4-5.0) Review of Systems Review of Systems The patient reports no recent symptoms of fevers, and he has not had nausea or vomiting. He reports good consistency of his bowel movements, and they are devoid of blood. Assessment and Plan Assessmemt and Plan Problems Medical Problems: (1) Anasarca Status: Acute (2) Anemia Status: Acute (3) Community acquired pneumonia Status: Acute (4) Congestive heart failure Status: Acute (5) Severe protein-calorie malnutrition Status: Acute Assessment: A 36 year old male presents with shortness of air. -Anemia -GERD -GI bleed -Schizophrenia -Depression -Smoking -Urinary retention -Hypercholesterolemia -Hypertension Plan: 1. Continue antibiotics 2. Continue breathing treatments 3. Tolbert discontinued 4. PT/OT 5. Awaiting further subspecialist input 6. Hepatic steatosis reported on echo 7. Awaiting results of MM testing 8. Urine proteins ordered 9. Monitor Cr/BUN - consider IVF once Cr elevation resolved to tx normocytic anemia 10. Appreciate consults from nephrology, cardiology, GI, pulmonology Problems: Comment Review of Relevant I have reviewed the following items maci (where applicable) has been applied. Labs Laboratory Tests Test 08/29/16 05:00 08/30/16 04:00 08/30/16 04:22 Sodium Level 138mmol/L (136-145) 139mmol/L (136-145) Potassium Level 4.1mmol/L (3.5-5.1) 4.3mmol/L (3.5-5.1) Chloride Level 103mmol/L (98-107) 104mmol/L (98-107) Carbon Dioxide Level 25mmol/L (21-32) 26mmol/L (21-32) Anion Gap 10 (6-14) 9 (6-14) Blood Urea Nitrogen 41mg/dL (8-26) 39mg/dL (8-26) Creatinine 1.6mg/dL (0.7-1.3) 1.5mg/dL (0.7-1.3) Estimated GFR (Cockcroft-Gault) 58.8 63.4 Glucose Level 115mg/dL (70-99) 116mg/dL (70-99) Calcium Level 9.1mg/dL (8.5-10.1) 8.7mg/dL (8.5-10.1) Phosphorus Level 3.6mg/dL (2.6-4.7) 3.5mg/dL (2.6-4.7) Magnesium Level 2.1mg/dL (1.8-2.4) 1.9mg/dL (1.8-2.4) Albumin 2.3g/dL (3.4-5.0) 2.3g/dL (3.4-5.0) Urine Collection Type U cath Urine Color Yellow Urine Clarity Clear Urine pH 6.0 Urine Specific [place] 1.015 Urine Protein Negativemg/dL (NEG-TRACE) Urine Glucose (UA) Negativemg/dL (NEG) Urine Ketones (Stick) Negativemg/dL (NEG) Urine Blood Large (NEG) Urine Nitrite Negative (NEG) Urine Bilirubin Negative (NEG) Urine Urobilinogen Dipstick 1.0mg/dL (0.2 mg/dL) Urine Leukocyte Esterase Moderate (NEG) Urine RBC 20-40/HPF (0-2) Urine WBC 5-10/HPF (0-4) Urine Squamous Epithelial Cells Occ/LPF Urine Bacteria Few/HPF (0-FEW) Urine Mucus Mod/LPF Laboratory Tests Test 08/30/16 04:00 08/30/16 04:22 Urine Collection Type U cath Urine Color Yellow Urine Clarity Clear Urine pH 6.0 Urine Specific [place] 1.015 Urine Protein Negativemg/dL (NEG-TRACE) Urine Glucose (UA) Negativemg/dL (NEG) Urine Ketones (Stick) Negativemg/dL (NEG) Urine Blood Large (NEG) Urine Nitrite Negative (NEG) Urine Bilirubin Negative (NEG) Urine Urobilinogen Dipstick 1.0mg/dL (0.2 mg/dL) Urine Leukocyte Esterase Moderate (NEG) Urine RBC 20-40/HPF (0-2) Urine WBC 5-10/HPF (0-4) Urine Squamous Epithelial Cells Occ/LPF Urine Bacteria Few/HPF (0-FEW) Urine Mucus Mod/LPF Sodium Level 139mmol/L (136-145) Potassium Level 4.3mmol/L (3.5-5.1) Chloride Level 104mmol/L (98-107) Carbon Dioxide Level 26mmol/L (21-32) Anion Gap 9 (6-14) Blood Urea Nitrogen 39mg/dL (8-26) Creatinine 1.5mg/dL (0.7-1.3) Estimated GFR (Cockcroft-Gault) 63.4 Glucose Level 116mg/dL (70-99) Calcium Level 8.7mg/dL (8.5-10.1) Phosphorus Level 3.5mg/dL (2.6-4.7) Magnesium Level 1.9mg/dL (1.8-2.4) Albumin 2.3g/dL (3.4-5.0) Microbiology 08/24/16 Blood Culture - Final, Complete NO GROWTH AFTER 5 DAYS Medications Current Medications Albuterol/ Ipratropium (Duoneb) 6 ml 1X ONCE NEB Last administered on 13:11; Start 08/24/16 at 13:30; Stop 08/24/16 at 13:31; Status DC Albuterol Sulfate (Ventolin Neb Soln) 2.5 mg STK-MED ONCE .ROUTE ; Start at 13:06; Stop 08/24/16 at 13:07; Status DC Albuterol/ Ipratropium (Duoneb) 3 ml STK-MED ONCE .ROUTE ; Start 08/24/16 at 13: 06; Stop 08/24/16 at 13:07; Status DC Ondansetron HCl (Zofran) 4 mg PRN Q8HRS PRN IV NAUSEA/VOMITING; Start 08/24/16 at 15:30; Stop 08/25/16 at 15:29; Status DC Fentanyl Citrate 50 mcg 50 mcg PRN Q2HR PRN IV PAIN; Start 08/24/16 at 15:30; Stop 08/25/16 at 15:29; Status DC Sodium Chloride (Iv Sodium Chloride 0.9% 1000ml Bag) 1,000 ml @ 100 mls/hr Q10H IV Last administered on 08/24/16 17:57; Start 08/24/16 at 16:00; Stop at 15:59; Status DC Albuterol/ Ipratropium (Duoneb) 3 ml RTQID NEB Last administered on 08/25/16 15 :02; Start 08/24/16 at 16:00; Stop 08/25/16 at 15:59; Status DC Levofloxacin/ Dextrose 1 each 1 each PRN DAILY PRN MC SEE COMMENTS; Start at 15:30; Stop 08/28/16 at 13:47; Status DC Levofloxacin/ Dextrose (LEVAQUIN 500mg PREMIX) 100 ml @ 100 mls/hr Q24H IV Last administered on 08/29/16 16:20; Start 08/24/16 at 16:00 Nicotine (Nicoderm Cq 21mg) 1 patch PRN DAILY PRN TD SMOKING CESSATION Last administered on 08/30/16 10:12; Start 08/24/16 at 16:15 Nicotine Polacrilex (Nicorette Gum) 1 each PRN Q1HR PRN BC SMOKING CESSATION; Start 08/24/16 at 16:15 Pantoprazole Sodium (Protonix Vial) 40 mg 1X ONCE IVP Last administered on 08/24 17:57; Start 08/24/16 at 16:15; Stop 08/24/16 at 16:17; Status DC Pantoprazole Sodium (Protonix) 40 mg BID PO Last administered on 08/30/16 08: 17; Start 08/24/16 at 21:00 Bupropion HCl (Wellbutrin) 100 mg BID PO Last administered on 08/30/16 08:17; Start 08/24/16 at 21:00 Furosemide (Lasix) 20 mg DAILY PO Last administered on 08/25/16 08:19; Start at 17:00; Stop 08/25/16 at 13:03; Status DC Haloperidol (Haldol) 2 mg HS PO Last administered on 08/29/16 21:27; Start 08/24 at 21:00 Magnesium Oxide (Magnesium Oxide) 400 mg DAILY PO Last administered on 08:17; Start 08/25/16 at 09:00 Non-Formulary Medication 40 mg DAILY PO ; Start 08/25/16 at 09:00; Status UNV Enoxaparin Sodium (Lovenox Per Pharmacy Prophylaxis Dosing) 1 each PRN DAILY PRN MC SEE COMMENTS; Start 08/24/16 at 16:45; Stop 08/28/16 at 13:47; Status DC Furosemide (Lasix) 80 mg 1X ONCE IVP Last administered on 08/24/16 17:57; Start 08/24/16 at 17:00; Stop 08/24/16 at 17:01; Status DC Enoxaparin Sodium (Lovenox 60mg Syringe) 60 mg Q12HR SQ Last administered on 08:19; Start 08/24/16 at 21:00 Furosemide (Lasix) 40 mg DAILY IVP Last administered on 08/25/16 14:22; Start 08/25/16 at 14:00; Stop 08/25/16 at 15:07; Status DC Thiamine HCl (Vitamin B-1) 100 mg DAILY PO Last administered on 08/30/16 08:17 ; Start 08/25/16 at 14:15 Vitamin B Complex (Folbic Tablet) 1 tab DAILY PO Last administered on 08:17; Start 08/26/16 at 09:00 Lorazepam (Ativan) 2 mg PRN Q1HR PRN IV For CIWA 8-14; Start 08/25/16 at 14:15 Lorazepam (Ativan) 4 mg PRN Q1HR PRN IV For CIWA 15 or greater; Start 08/25/16 at 14:15 Lorazepam (Ativan) 1 mg DAILY PO Last administered on 08/30/16 08:17; Start at 14:15 Methylprednisolone Sodium Succinate 40 mg 40 mg Q8HRS IV Last administered on 06:19; Start 08/25/16 at 15:00 Sodium Chloride 500 ml @ 0 mls/hr PRN QID PRN IV UO< 30cc/hr over previous 6hrs ; Start 08/25/16 at 15:15 Magnesium Sulfate/ Dextrose (Magnesium Sulfate PREMIX 2GM) 50 ml @ 25 mls/hr PRN DAILY PRN IV for Mag < 1.7 on am labs; Start 08/25/16 at 15:15 Albuterol/ Ipratropium (Duoneb) 3 ml RTQID NEB Last administered on 4/10/17at 11:42; Start 08/25/16 at 20:00 Albuterol Sulfate (Ventolin Neb Soln) 2.5 mg PRN Q2HR PRN NEB SHORTNESS OF BREATH; Start 08/25/16 at 19:45 Active Scripts Active Lasix (Furosemide) 20 Mg Tablet 1 Tab PO DAILY Magnesium Oxide 400 Mg Tablet 1 Tab PO DAILY Reported Wellbutrin (Bupropion Hcl) 100 Mg Tablet Unknown Dose PO BID Haloperidol 2 Mg Tablet Unknown Dose PO Prilosec (Omeprazole) 40 Mg Capsule.dr 40 Mg PO DAILY Exforge 5-160 Mg Tablet (Amlodipine/Valsartan) 1 Each Tablet Unknown Dose PO Vitals/I & O Vital Sign - Last 24 Hours 08/29/16 08/29/16 08/29/16 08/29/16 15:00 15:34 18:45 19:00 Temp 98.0 96.8 98.0 96.8 Pulse 94 94 Resp 18 20 B/P 109/76 132/71 Pulse Ox 100 99 96 O2 Delivery Nasal Cannula Nasal Cannula Nasal Cannula Nasal Cannula O2 Flow Rate 2.0 3.0 3.0 2.0 08/29/16 08/29/16 08/30/16 08/30/16 20:00 23:00 03:00 07:30 Temp 97.5 99.3 97.5 97.5 99.3 97.5 Pulse 93 91 90 Resp 20 20 18 B/P 143/80 138/78 147/86 Pulse Ox 92 93 92 O2 Delivery Nasal Cannula Nasal Cannula Nasal Cannula Nasal Cannula O2 Flow Rate 2.0 2.0 2.0 2.0 08/30/16 08/30/16 08/30/16 08/30/16 07:36 08:00 10:38 11:42 Temp 97.6 97.6 Pulse 89 Resp 17 B/P 136/82 Pulse Ox 98 92 O2 Delivery Room Air Nasal Cannula Nasal Cannula Room Air O2 Flow Rate 2.0 2.0 Intake and Output 08/29/16 08/29/16 08/30/16 15:00 23:00 07:00 Intake Total 400 ml 480 ml Output Total 900 ml 450 ml 1600 ml Balance -900 ml -50 ml -1120 ml MIKE NOLASCO III DO Aug 30, 2016 13:34
--- NOTE | 2016-08-30 14:21 | PDOC ---
PULMONARY PROGRESS NOTES Subjective no increase in soa, Vitals Vital Signs Date Time Temp Pulse Resp B/P Pulse Ox O2 Delivery O2 Flow Rate FiO2 08/30/16 11:42 Room Air 08/30/16 10:38 97.6 89 17 136/82 92 2.0 97.6 ROS: No Nausea, No Chest Pain, No Abdominal Pain, No Increase Cough General: Alert, No acute distress HEENT: Other (nc at perrl, shallow oropharynx. nose inflamed mucosa) Lungs: Other (Rhonchi present when auscultated on anterior chest) Cardiovascular: S1, S2 Abdomen: Soft, Non-tender, Other (markedly obese) Neuro Exam: Alert Extremities: Other (2+edema) Skin: Warm Labs Laboratory Tests Test 08/29/16 05:00 08/30/16 04:00 08/30/16 04:22 Sodium Level 138mmol/L (136-145) 139mmol/L (136-145) Potassium Level 4.1mmol/L (3.5-5.1) 4.3mmol/L (3.5-5.1) Chloride Level 103mmol/L (98-107) 104mmol/L (98-107) Carbon Dioxide Level 25mmol/L (21-32) 26mmol/L (21-32) Anion Gap 10 (6-14) 9 (6-14) Blood Urea Nitrogen 41mg/dL (8-26) 39mg/dL (8-26) Creatinine 1.6mg/dL (0.7-1.3) 1.5mg/dL (0.7-1.3) Estimated GFR (Cockcroft-Gault) 58.8 63.4 Glucose Level 115mg/dL (70-99) 116mg/dL (70-99) Calcium Level 9.1mg/dL (8.5-10.1) 8.7mg/dL (8.5-10.1) Phosphorus Level 3.6mg/dL (2.6-4.7) 3.5mg/dL (2.6-4.7) Magnesium Level 2.1mg/dL (1.8-2.4) 1.9mg/dL (1.8-2.4) Albumin 2.3g/dL (3.4-5.0) 2.3g/dL (3.4-5.0) Urine Collection Type U cath Urine Color Yellow Urine Clarity Clear Urine pH 6.0 Urine Specific [place] 1.015 Urine Protein Negativemg/dL (NEG-TRACE) Urine Glucose (UA) Negativemg/dL (NEG) Urine Ketones (Stick) Negativemg/dL (NEG) Urine Blood Large (NEG) Urine Nitrite Negative (NEG) Urine Bilirubin Negative (NEG) Urine Urobilinogen Dipstick 1.0mg/dL (0.2 mg/dL) Urine Leukocyte Esterase Moderate (NEG) Urine RBC 20-40/HPF (0-2) Urine WBC 5-10/HPF (0-4) Urine Squamous Epithelial Cells Occ/LPF Urine Bacteria Few/HPF (0-FEW) Urine Mucus Mod/LPF Laboratory Tests Test 08/30/16 04:00 08/30/16 04:22 Urine Collection Type U cath Urine Color Yellow Urine Clarity Clear Urine pH 6.0 Urine Specific [place] 1.015 Urine Protein Negativemg/dL (NEG-TRACE) Urine Glucose (UA) Negativemg/dL (NEG) Urine Ketones (Stick) Negativemg/dL (NEG) Urine Blood Large (NEG) Urine Nitrite Negative (NEG) Urine Bilirubin Negative (NEG) Urine Urobilinogen Dipstick 1.0mg/dL (0.2 mg/dL) Urine Leukocyte Esterase Moderate (NEG) Urine RBC 20-40/HPF (0-2) Urine WBC 5-10/HPF (0-4) Urine Squamous Epithelial Cells Occ/LPF Urine Bacteria Few/HPF (0-FEW) Urine Mucus Mod/LPF Sodium Level 139mmol/L (136-145) Potassium Level 4.3mmol/L (3.5-5.1) Chloride Level 104mmol/L (98-107) Carbon Dioxide Level 26mmol/L (21-32) Anion Gap 9 (6-14) Blood Urea Nitrogen 39mg/dL (8-26) Creatinine 1.5mg/dL (0.7-1.3) Estimated GFR (Cockcroft-Gault) 63.4 Glucose Level 116mg/dL (70-99) Calcium Level 8.7mg/dL (8.5-10.1) Phosphorus Level 3.5mg/dL (2.6-4.7) Magnesium Level 1.9mg/dL (1.8-2.4) Albumin 2.3g/dL (3.4-5.0) Medications Active Scripts Medications Dose Route/Sig Days Date Category Lasix (Furosemide) 20 Mg Tablet 1 Tab PO DAILY 06/11/16 Rx Magnesium Oxide 400 Mg Tablet 1 Tab PO DAILY 06/11/16 Rx Wellbutrin (Bupropion Hcl) 100 Mg Tablet Unknown Dose PO BID 08/14/14 Reported Haloperidol 2 Mg Tablet Unknown Dose PO 08/14/14 Reported Prilosec (Omeprazole) 40 Mg Capsule.dr 40 Mg PO DAILY 08/14/14 Reported Exforge 5-160 Mg Tablet (Amlodipine/Valsartan) 1 Each Tablet Unknown Dose PO 08/14/[address] CHEST 1. Left greater than right upper lobe groundglass opacity. No pleural effusion is identified. The findings could represent nonspecific infectious or inflammatory process. Asymmetric pulmonary edema is thought less likely, but still possible. 2. Body wall edema. Ascites. 3. Fatty liver disease. 4. Cholelithiasis. Impression . 1. Progressive dyspnea with 80-pound weight gain in last 6 months and with mild interstitial infiltrates in a morbidly obese patient with a BMI of 59. Most likely, this is [id number] cor pulmonale. 2. Suspect chronic renal insufficiency. now acute on chronic 3. History of tobaccoism, possible underlying chronic obstructive pulmonary disease. 4. Morbid obesity, prob bishnu 5. allergic rhinitis Plan . continue the same 1. keep I<O, monitor k, cr. 2. Echocardiogram.reviewed 3. CT of chest reviewed 4. Weight loss, strongly emphasized. 5. Follow cxr as needed 6. Improve nutritional status. Albumin level is 2.2. 7. psg as out pt BAUDILIO FELIZ MD Aug 30, 2016 14:21
--- NOTE | 2016-08-30 14:25 | PDOC ---
Subjective: Subjective: No GI complaints. Breathing better. Asks when he can DC. Objective: Vital Signs: Vital Signs Date Time Temp Pulse Resp B/P Pulse Ox O2 Delivery O2 Flow Rate FiO2 08/30/16 11:42 Room Air 08/30/16 10:38 97.6 89 17 136/82 92 2.0 97.6 Labs: Laboratory Tests Test 08/30/16 04:00 08/30/16 04:22 Urine Collection Type U cath Urine Color Yellow Urine Clarity Clear Urine pH 6.0 Urine Specific [place] 1.015 Urine Protein Negativemg/dL Urine Glucose (UA) Negativemg/dL Urine Ketones (Stick) Negativemg/dL Urine Blood Large Urine Nitrite Negative Urine Bilirubin Negative Urine Urobilinogen Dipstick 1.0mg/dL Urine Leukocyte Esterase Moderate Urine RBC 20-40/HPF Urine WBC 5-10/HPF Urine Squamous Epithelial Cells Occ/LPF Urine Bacteria Few/HPF Urine Mucus Mod/LPF Sodium Level 139mmol/L Potassium Level 4.3mmol/L Chloride Level 104mmol/L Carbon Dioxide Level 26mmol/L Anion Gap 9 Blood Urea Nitrogen 39mg/dL Creatinine 1.5mg/dL Estimated GFR (Cockcroft-Gault) 63.4 Glucose Level 116mg/dL Calcium Level 8.7mg/dL Phosphorus Level 3.5mg/dL Magnesium Level 1.9mg/dL Albumin 2.3g/dL PE: GEN: NAD LUNGS: clear anteriorly HEART: RRR ABD: S/ND/NT, obese NEURO/PSYCH: A & O 3 A/P: Anemia, heme positive stool -h/o PUD (NSAID), on PPI BID -iron and TIBC low, B12 and folate WNL -Hgb stable -h/o occasional rectal bleeding (prior to admission) w/ change in bowel habits Abnormal LFTs (last checked 08/24) -Hepatitis panel neg -h/o alcohol abuse, on thiamine -US: cholelithiasis w/ GB wall thickening, hepatic steatosis DAMION, heart and resp failure -cardio, pulm, renal following -- Stable Hgb w/o obvious bleeding. EGD/colonoscopy at some point, other per Dr. Garcia. STEFANY LLANOS Aug 30, 2016 14:25
[2016-08-30 15:30] VITALS: BP 145/77
[2016-08-30 17:20] LABS: ALPHA 1 0.4 g/dL (0.0-0.4); ALPHA 2 0.7 g/dL (0.4-1.0); BETA 1.2 g/dL (0.7-1.3); M-SPIKE Not Observed g/dL (Not Observed)
[2016-08-30 19:00] VITALS: BP 128/71
[2016-08-30 20:09] LABS: IMMUNOGLOBULIN A 620 mg/dL (90-386); IMMUNOGLOBULIN G 2931 mg/dL (700-1600); IMMUNOGLOBULIN M 56 mg/dL (20-172)
[2016-08-30] MEDS: HALOPERIDOL 2 MG TABLET. PO SCH (21:04)
[2016-08-30 23:45] VITALS: BP 163/82
[2016-08-31 03:00] VITALS: BP 121/89
[2016-08-31 07:00] VITALS: BP 151/84
[2016-08-31] MEDS: IPRATRPIUM/ALBUTEROL 0.5/2.5MG 3 ML NEBU. NEB SCH ×2 (07:14→11:19)
[2016-08-31 07:41] LABS: ALBUMIN 2.6 g/dL (3.4-5.0); CALCIUM 9.4 mg/dL (8.5-10.1); CREATININE 1.4 mg/dL (0.7-1.3); GFR 68.6; PHOSPHORUS 3.9 mg/dL (2.6-4.7); POTASSIUM 4.2 mmol/L (3.5-5.1)
[2016-08-31] MEDS: THIAMINE 100 MG TABLET. PO SCH (08:40)
[2016-08-31] MEDS: MAGNESIUM OXIDE 400 MG TABLET PO SCH (08:40)
[2016-08-31] MEDS: PANTOPRAZOLE 40 MG TABLET.DR. PO SCH (08:40)
[2016-08-31] MEDS: buPROPion 100 MG TABLET PO SCH (08:40)
[2016-08-31] MEDS: LORAZEPAM 1 MG TABLET. PO SCH (08:40)
[2016-08-31] MEDS: VITAMIN B12,B9,B6 COMPLEX 1 TABLET. PO SCH (08:40)
[2016-08-31] MEDS: NICOTINE 21MG PATCH. TD PRN (08:45)
[2016-08-31] MEDS ORDERED: methylPREDNISolone SOD SUCC PF 40 MG/ML VIAL. IV SCH (09:00)
--- NOTE | 2016-08-31 09:05 | PDOC ---
PULMONARY PROGRESS NOTES Subjective no increase in soa, Vitals Vital Signs Date Time Temp Pulse Resp B/P Pulse Ox O2 Delivery O2 Flow Rate FiO2 08/31/16 07:45 Room Air 08/31/16 07:30 98 08/31/16 07:00 97.5 91 16 151/84 2.0 97.5 ROS: No Nausea, No Chest Pain, No Abdominal Pain, No Increase Cough General: Alert, No acute distress HEENT: Other (nc at perrl, shallow oropharynx. nose inflamed mucosa) Lungs: Other (Rhonchi present when auscultated on anterior chest in multiple quadrants) Cardiovascular: S1, S2 Abdomen: Soft, Non-tender, Other (markedly obese) Neuro Exam: Alert Extremities: Other (2+edema) Skin: Warm Labs Laboratory Tests Test 08/30/16 04:00 08/30/16 04:22 08/31/16 06:50 Urine Collection Type U cath Urine Color Yellow Urine Clarity Clear Urine pH 6.0 Urine Specific [place] 1.015 Urine Protein Negativemg/dL (NEG-TRACE) Urine Glucose (UA) Negativemg/dL (NEG) Urine Ketones (Stick) Negativemg/dL (NEG) Urine Blood Large (NEG) Urine Nitrite Negative (NEG) Urine Bilirubin Negative (NEG) Urine Urobilinogen Dipstick 1.0mg/dL (0.2 mg/dL) Urine Leukocyte Esterase Moderate (NEG) Urine RBC 20-40/HPF (0-2) Urine WBC 5-10/HPF (0-4) Urine Squamous Epithelial Cells Occ/LPF Urine Bacteria Few/HPF (0-FEW) Urine Mucus Mod/LPF Sodium Level 139mmol/L (136-145) 139mmol/L (136-145) Potassium Level 4.3mmol/L (3.5-5.1) 4.2mmol/L (3.5-5.1) Chloride Level 104mmol/L (98-107) 103mmol/L (98-107) Carbon Dioxide Level 26mmol/L (21-32) 25mmol/L (21-32) Anion Gap 9 (6-14) 11 (6-14) Blood Urea Nitrogen 39mg/dL (8-26) 36mg/dL (8-26) Creatinine 1.5mg/dL (0.7-1.3) 1.4mg/dL (0.7-1.3) Estimated GFR (Cockcroft-Gault) 63.4 68.6 Glucose Level 116mg/dL (70-99) 98mg/dL (70-99) Calcium Level 8.7mg/dL (8.5-10.1) 9.4mg/dL (8.5-10.1) Phosphorus Level 3.5mg/dL (2.6-4.7) 3.9mg/dL (2.6-4.7) Magnesium Level 1.9mg/dL (1.8-2.4) Albumin 2.3g/dL (3.4-5.0) 2.6g/dL (3.4-5.0) Laboratory Tests Test 08/31/16 06:50 Sodium Level 139mmol/L (136-145) Potassium Level 4.2mmol/L (3.5-5.1) Chloride Level 103mmol/L (98-107) Carbon Dioxide Level 25mmol/L (21-32) Anion Gap 11 (6-14) Blood Urea Nitrogen 36mg/dL (8-26) Creatinine 1.4mg/dL (0.7-1.3) Estimated GFR (Cockcroft-Gault) 68.6 Glucose Level 98mg/dL (70-99) Calcium Level 9.4mg/dL (8.5-10.1) Phosphorus Level 3.9mg/dL (2.6-4.7) Albumin 2.6g/dL (3.4-5.0) Medications Active Scripts Medications Dose Route/Sig Days Date Category Lasix (Furosemide) 20 Mg Tablet 1 Tab PO DAILY 06/11/16 Rx Magnesium Oxide 400 Mg Tablet 1 Tab PO DAILY 06/11/16 Rx Wellbutrin (Bupropion Hcl) 100 Mg Tablet Unknown Dose PO BID 08/14/14 Reported Haloperidol 2 Mg Tablet Unknown Dose PO 08/14/14 Reported Prilosec (Omeprazole) 40 Mg Capsule.dr 40 Mg PO DAILY 08/14/14 Reported Exforge 5-160 Mg Tablet (Amlodipine/Valsartan) 1 Each Tablet Unknown Dose PO 08/14/[address] CHEST 1. Left greater than right upper lobe groundglass opacity. No pleural effusion is identified. The findings could represent nonspecific infectious or inflammatory process. Asymmetric pulmonary edema is thought less likely, but still possible. 2. Body wall edema. Ascites. 3. Fatty liver disease. 4. Cholelithiasis. Impression . 1. Acute/chronic Cor Pulmonale 2. Suspect chronic renal insufficiency. now acute on chronic 3. History of tobaccoism, possible underlying chronic obstructive pulmonary disease. 4. Morbid obesity, prob bishnu 5. allergic rhinitis Plan . d/c home outpt sleep study diurese wt reduction BAUDILIO FELIZ MD Aug 31, 2016 09:05
[2016-08-31 11:00] VITALS: BP 154/98
--- NOTE | 2016-08-31 11:22 | PDOC ---
Renal-Progress Notes Subjective Notes Notes NONE History of Present Illness Hx of present illness STABLE Vitals Vitals Vital Signs Date Time Temp Pulse Resp B/P Pulse Ox O2 Delivery O2 Flow Rate FiO2 08/31/16 08:30 Room Air 08/31/16 07:30 98 08/31/16 07:00 97.5 91 16 151/84 2.0 97.5 Weight Weight [ ] I.O. Intake and Output Intake and Output 08/31/16 06:59 Intake Total 3880 ml Output Total 2275 ml Balance 1605 ml Intake Oral 3880 ml Output Urine Total 2275 ml # Voids 2 Labs Labs Laboratory Tests Test 08/31/16 06:50 Sodium Level 139mmol/L (136-145) Potassium Level 4.2mmol/L (3.5-5.1) Chloride Level 103mmol/L (98-107) Carbon Dioxide Level 25mmol/L (21-32) Anion Gap 11 (6-14) Blood Urea Nitrogen 36mg/dL (8-26) Creatinine 1.4mg/dL (0.7-1.3) Estimated GFR (Cockcroft-Gault) 68.6 Glucose Level 98mg/dL (70-99) Calcium Level 9.4mg/dL (8.5-10.1) Phosphorus Level 3.9mg/dL (2.6-4.7) Albumin 2.6g/dL (3.4-5.0) Micro Micro Microbiology 08/24/16 Blood Culture - Final, Complete NO GROWTH AFTER 5 DAYS Review of Systems Constitutional: yes: alert, oriented, weakness Ears/Nose/Throat: Yes: no symptom reported Eyes: Yes: no symptom reported Pulmonary: Yes no symptom reported Cardiovascular: Yes no symptom reported Gastrointestional: Yes: no symptom reported Genitourinary: Yes: no symptom reported Musculoskeletal: Yes: no symptom reported Psychiatric/Neurological: Yes: no symptom reported Physical Exam General Appearance: no apparent distress Skin: warm Respiratory: bilateral CTA Heart: S1S2, RRR Abdomen: soft, bowel sounds present Genitourinary: bladder flat Neurology: alert, oriented, follow commands Musculoskeletal: Other (elevated LFT's ) Assessment Assessment IMP HTN CKD STAGE 3 WITH CR AT BASELINE OF 1.5 MORBID OBESITY ANEMIA CAP PLAN CONT WITH ANTIBIOTICS ARROYO REMOVED MAY NEED DIURETICS ENC RENAL F/U AT D/C MOST LIKELY HAS HTN RELATED NEPHROSCLEROSIS WATTERS,KATHERYN S MD Aug 31, 2016 11:22
--- NOTE | 2016-08-31 12:08 | PDOC ---
G I PROGRESS NOTE Subjective NO GI complaints. Physical Exam Lungs clear. RRR Abdomen protuberant, not tender nor distended. Review of Relevant I have reviewed the following items maci (where applicable) has been applied. Labs Laboratory Tests Test 08/30/16 04:00 08/30/16 04:22 08/31/16 06:50 Urine Collection Type U cath Urine Color Yellow Urine Clarity Clear Urine pH 6.0 Urine Specific [place] 1.015 Urine Protein Negativemg/dL (NEG-TRACE) Urine Glucose (UA) Negativemg/dL (NEG) Urine Ketones (Stick) Negativemg/dL (NEG) Urine Blood Large (NEG) Urine Nitrite Negative (NEG) Urine Bilirubin Negative (NEG) Urine Urobilinogen Dipstick 1.0mg/dL (0.2 mg/dL) Urine Leukocyte Esterase Moderate (NEG) Urine RBC 20-40/HPF (0-2) Urine WBC 5-10/HPF (0-4) Urine Squamous Epithelial Cells Occ/LPF Urine Bacteria Few/HPF (0-FEW) Urine Mucus Mod/LPF Sodium Level 139mmol/L (136-145) 139mmol/L (136-145) Potassium Level 4.3mmol/L (3.5-5.1) 4.2mmol/L (3.5-5.1) Chloride Level 104mmol/L (98-107) 103mmol/L (98-107) Carbon Dioxide Level 26mmol/L (21-32) 25mmol/L (21-32) Anion Gap 9 (6-14) 11 (6-14) Blood Urea Nitrogen 39mg/dL (8-26) 36mg/dL (8-26) Creatinine 1.5mg/dL (0.7-1.3) 1.4mg/dL (0.7-1.3) Estimated GFR (Cockcroft-Gault) 63.4 68.6 Glucose Level 116mg/dL (70-99) 98mg/dL (70-99) Calcium Level 8.7mg/dL (8.5-10.1) 9.4mg/dL (8.5-10.1) Phosphorus Level 3.5mg/dL (2.6-4.7) 3.9mg/dL (2.6-4.7) Magnesium Level 1.9mg/dL (1.8-2.4) Albumin 2.3g/dL (3.4-5.0) 2.6g/dL (3.4-5.0) Laboratory Tests Test 08/31/16 06:50 Sodium Level 139mmol/L (136-145) Potassium Level 4.2mmol/L (3.5-5.1) Chloride Level 103mmol/L (98-107) Carbon Dioxide Level 25mmol/L (21-32) Anion Gap 11 (6-14) Blood Urea Nitrogen 36mg/dL (8-26) Creatinine 1.4mg/dL (0.7-1.3) Estimated GFR (Cockcroft-Gault) 68.6 Glucose Level 98mg/dL (70-99) Calcium Level 9.4mg/dL (8.5-10.1) Phosphorus Level 3.9mg/dL (2.6-4.7) Albumin 2.6g/dL (3.4-5.0) Microbiology 08/24/16 Blood Culture - Final, Complete NO GROWTH AFTER 5 DAYS Medications Current Medications Albuterol/ Ipratropium (Duoneb) 6 ml 1X ONCE NEB Last administered on 13:11; Start 08/24/16 at 13:30; Stop 08/24/16 at 13:31; Status DC Albuterol Sulfate (Ventolin Neb Soln) 2.5 mg STK-MED ONCE .ROUTE ; Start at 13:06; Stop 08/24/16 at 13:07; Status DC Albuterol/ Ipratropium (Duoneb) 3 ml STK-MED ONCE .ROUTE ; Start 08/24/16 at 13: 06; Stop 08/24/16 at 13:07; Status DC Ondansetron HCl (Zofran) 4 mg PRN Q8HRS PRN IV NAUSEA/VOMITING; Start 08/24/16 at 15:30; Stop 08/25/16 at 15:29; Status DC Fentanyl Citrate 50 mcg 50 mcg PRN Q2HR PRN IV PAIN; Start 08/24/16 at 15:30; Stop 08/25/16 at 15:29; Status DC Sodium Chloride (Iv Sodium Chloride 0.9% 1000ml Bag) 1,000 ml @ 100 mls/hr Q10H IV Last administered on 08/24/16 17:57; Start 08/24/16 at 16:00; Stop at 15:59; Status DC Albuterol/ Ipratropium (Duoneb) 3 ml RTQID NEB Last administered on 08/25/16 15 :02; Start 08/24/16 at 16:00; Stop 08/25/16 at 15:59; Status DC Levofloxacin/ Dextrose 1 each 1 each PRN DAILY PRN MC SEE COMMENTS; Start at 15:30; Stop 08/28/16 at 13:47; Status DC Levofloxacin/ Dextrose (LEVAQUIN 500mg PREMIX) 100 ml @ 100 mls/hr Q24H IV Last administered on 08/30/16 16:24; Start 08/24/16 at 16:00 Nicotine (Nicoderm Cq 21mg) 1 patch PRN DAILY PRN TD SMOKING CESSATION Last administered on 08/31/16 08:45; Start 08/24/16 at 16:15 Nicotine Polacrilex (Nicorette Gum) 1 each PRN Q1HR PRN BC SMOKING CESSATION; Start 08/24/16 at 16:15 Pantoprazole Sodium (Protonix Vial) 40 mg 1X ONCE IVP Last administered on 08/24 17:57; Start 08/24/16 at 16:15; Stop 08/24/16 at 16:17; Status DC Pantoprazole Sodium (Protonix) 40 mg BID PO Last administered on 08/31/16 08: 40; Start 08/24/16 at 21:00 Bupropion HCl (Wellbutrin) 100 mg BID PO Last administered on 08/31/16 08:40; Start 08/24/16 at 21:00 Furosemide (Lasix) 20 mg DAILY PO Last administered on 08/25/16 08:19; Start at 17:00; Stop 08/25/16 at 13:03; Status DC Haloperidol (Haldol) 2 mg HS PO Last administered on 08/30/16 21:04; Start 08/24/16 at 21:00 Magnesium Oxide (Magnesium Oxide) 400 mg DAILY PO Last administered on 08:40; Start 08/25/16 at 09:00 Non-Formulary Medication 40 mg DAILY PO ; Start 08/25/16 at 09:00; Status UNV Enoxaparin Sodium (Lovenox Per Pharmacy Prophylaxis Dosing) 1 each PRN DAILY PRN MC SEE COMMENTS; Start 08/24/16 at 16:45; Stop 08/28/16 at 13:47; Status DC Furosemide (Lasix) 80 mg 1X ONCE IVP Last administered on 08/24/16 17:57; Start 08/24/16 at 17:00; Stop 08/24/16 at 17:01; Status DC Enoxaparin Sodium (Lovenox 60mg Syringe) 60 mg Q12HR SQ Last administered on 08:45; Start 08/24/16 at 21:00 Furosemide (Lasix) 40 mg DAILY IVP Last administered on 08/25/16 14:22; Start 08/25/16 at 14:00; Stop 08/25/16 at 15:07; Status DC Thiamine HCl (Vitamin B-1) 100 mg DAILY PO Last administered on 08/31/16 08:40 ; Start 08/25/16 at 14:15 Vitamin B Complex (Folbic Tablet) 1 tab DAILY PO Last administered on 08:40; Start 08/26/16 at 09:00 Lorazepam (Ativan) 2 mg PRN Q1HR PRN IV For CIWA 8-14; Start 08/25/16 at 14:15 Lorazepam (Ativan) 4 mg PRN Q1HR PRN IV For CIWA 15 or greater; Start 08/25/16 at 14:15 Lorazepam (Ativan) 1 mg DAILY PO Last administered on 08/31/16 08:40; Start at 14:15 Methylprednisolone Sodium Succinate 40 mg 40 mg Q8HRS IV Last administered on 13:47; Start 08/25/16 at 15:00; Stop 08/30/16 at 20:41; Status DC Sodium Chloride 500 ml @ 0 mls/hr PRN QID PRN IV UO< 30cc/hr over previous 6hrs ; Start 08/25/16 at 15:15 Magnesium Sulfate/ Dextrose (Magnesium Sulfate PREMIX 2GM) 50 ml @ 25 mls/hr PRN DAILY PRN IV for Mag < 1.7 on am labs; Start 08/25/16 at 15:15 Albuterol/ Ipratropium (Duoneb) 3 ml RTQID NEB Last administered on 08/31/16 11:19; Start 08/25/16 at 20:00 Albuterol Sulfate (Ventolin Neb Soln) 2.5 mg PRN Q2HR PRN NEB SHORTNESS OF BREATH; Start 08/25/16 at 19:45 Methylprednisolone Sodium Succinate (Solu-Medrol 40mg Vial) 40 mg DAILY IV Last administered on 08/31/16 08:41; Start 08/31/16 at 09:00 Active Scripts Active Lasix (Furosemide) 20 Mg Tablet 1 Tab PO DAILY Magnesium Oxide 400 Mg Tablet 1 Tab PO DAILY Reported Wellbutrin (Bupropion Hcl) 100 Mg Tablet Unknown Dose PO BID Haloperidol 2 Mg Tablet Unknown Dose PO Prilosec (Omeprazole) 40 Mg Capsule.dr 40 Mg PO DAILY Exforge 5-160 Mg Tablet (Amlodipine/Valsartan) 1 Each Tablet Unknown Dose PO Vitals/I & O Vital Sign - Last 24 Hours 08/30/16 08/30/16 08/30/16 08/30/16 15:28 15:30 19:00 20:00 Temp 97.7 96.4 97.7 96.4 Pulse 94 89 Resp 20 20 B/P 145/77 128/71 Pulse Ox 69 94 O2 Delivery Room Air Room Air Nasal Cannula Nasal Cannula O2 Flow Rate 2.0 2.0 08/30/16 08/30/16 08/31/16 08/31/16 20:30 23:45 03:00 07:00 Temp 97.7 97.8 97.5 97.7 97.8 97.5 Pulse 93 82 91 Resp 20 20 16 B/P 163/82 121/89 151/84 Pulse Ox 92 90 96 O2 Delivery Room Air Nasal Cannula Nasal Cannula Nasal Cannula O2 Flow Rate 2.0 2.0 2.0 08/31/16 08/31/16 08/31/16 08/31/16 07:30 07:45 08:30 11:00 Temp 97.9 97.9 Pulse 91 Resp 16 B/P 154/98 Pulse Ox 98 96 O2 Delivery Room Air Room Air Room Air Nasal Cannula O2 Flow Rate 2.0 08/31/16 11:27 Pulse Ox 98 O2 Delivery Room Air Intake and Output 08/30/16 08/30/16 08/31/16 14:59 22:59 06:59 Intake Total 1330 ml 910 ml 1640 ml Output Total 575 ml 900 ml 800 ml Balance 755 ml 10 ml 840 ml Problem List Problems Medical Problems: (1) Anasarca Status: Acute (2) Anemia Status: Acute (3) Community acquired pneumonia Status: Acute (4) Congestive heart failure Status: Acute (5) Severe protein-calorie malnutrition Status: Acute Assessment Anemia/occasional blood per rectum. Merits siddiqui-endoscopy. Plan of Care: Continue current Tx, Mgmt Plan of Care Note Gave my business card to arrange 'scopes as outpatient. Seems no need to prolong current admission just for this. SADAF AGRAWAL MD Aug 31, 2016 12:08
--- NOTE | 2016-08-31 14:09 | PDOC ---
PROGRESS NOTES Chief Complaint Chief Complaint cc: Shortness of air -Anemia -GERD -GI bleed -Schizophrenia -Depression -Smoking -Urinary retention -Hypercholesterolemia -Hypertension History of Present Illness History of Present Illness The patient is doing well and conversing comfortably while sitting up in bed. He has no complaints. There is still no blood in his stool. The tolbert is no longer present, and he states that he wishes to be discharged. Vitals Vitals Vital Signs Date Time Temp Pulse Resp B/P Pulse Ox O2 Delivery O2 Flow Rate FiO2 08/31/16 11:27 98 Room Air 08/31/16 11:00 97.9 91 16 154/98 2.0 97.9 Physical Exam General: Alert, Cooperative, No acute distress Heart: Regular rate, Normal S1, Normal S2 Lungs: Clear, Other (No chest retractions) Abdomen: Normal bowel sounds, Soft Extremities: No clubbing, No cyanosis Skin: No breakdown, No significant lesion Labs LABS Laboratory Tests Test 08/31/16 06:50 Sodium Level 139mmol/L (136-145) Potassium Level 4.2mmol/L (3.5-5.1) Chloride Level 103mmol/L (98-107) Carbon Dioxide Level 25mmol/L (21-32) Anion Gap 11 (6-14) Blood Urea Nitrogen 36mg/dL (8-26) Creatinine 1.4mg/dL (0.7-1.3) Estimated GFR (Cockcroft-Gault) 68.6 Glucose Level 98mg/dL (70-99) Calcium Level 9.4mg/dL (8.5-10.1) Phosphorus Level 3.9mg/dL (2.6-4.7) Albumin 2.6g/dL (3.4-5.0) Review of Systems Review of Systems The patient reports that he has not had nausea or vomiting. He had a good bowel movement this morning and it was devoid of blood. He also has no dizziness or problems ambulating. Assessment and Plan Assessmemt and Plan Problems Medical Problems: (1) Anasarca Status: Acute (2) Anemia Status: Acute (3) Community acquired pneumonia Status: Acute (4) Congestive heart failure Status: Acute (5) Severe protein-calorie malnutrition Status: Acute Assessment: Mr. Mancini is a 36 year old male that presented with shortness of air. -Anemia -GERD -GI bleed -Schizophrenia -Depression -Smoking -Urinary retention -Hypercholesterolemia -Hypertension Plan: 1. Likely discharge 2. Continue home medications 3. Encourage monitoring of stools to be sure devoid of blood 4. Encourage proper nutrition 5. Consultation from nephrology, cardiology, GI, and pulmonology appreciated Problems: Comment Review of Relevant I have reviewed the following items maci (where applicable) has been applied. Labs Laboratory Tests Test 08/30/16 04:00 08/30/16 04:22 08/31/16 06:50 Urine Collection Type U cath Urine Color Yellow Urine Clarity Clear Urine pH 6.0 Urine Specific [place] 1.015 Urine Protein Negativemg/dL (NEG-TRACE) Urine Glucose (UA) Negativemg/dL (NEG) Urine Ketones (Stick) Negativemg/dL (NEG) Urine Blood Large (NEG) Urine Nitrite Negative (NEG) Urine Bilirubin Negative (NEG) Urine Urobilinogen Dipstick 1.0mg/dL (0.2 mg/dL) Urine Leukocyte Esterase Moderate (NEG) Urine RBC 20-40/HPF (0-2) Urine WBC 5-10/HPF (0-4) Urine Squamous Epithelial Cells Occ/LPF Urine Bacteria Few/HPF (0-FEW) Urine Mucus Mod/LPF Sodium Level 139mmol/L (136-145) 139mmol/L (136-145) Potassium Level 4.3mmol/L (3.5-5.1) 4.2mmol/L (3.5-5.1) Chloride Level 104mmol/L (98-107) 103mmol/L (98-107) Carbon Dioxide Level 26mmol/L (21-32) 25mmol/L (21-32) Anion Gap 9 (6-14) 11 (6-14) Blood Urea Nitrogen 39mg/dL (8-26) 36mg/dL (8-26) Creatinine 1.5mg/dL (0.7-1.3) 1.4mg/dL (0.7-1.3) Estimated GFR (Cockcroft-Gault) 63.4 68.6 Glucose Level 116mg/dL (70-99) 98mg/dL (70-99) Calcium Level 8.7mg/dL (8.5-10.1) 9.4mg/dL (8.5-10.1) Phosphorus Level 3.5mg/dL (2.6-4.7) 3.9mg/dL (2.6-4.7) Magnesium Level 1.9mg/dL (1.8-2.4) Albumin 2.3g/dL (3.4-5.0) 2.6g/dL (3.4-5.0) Laboratory Tests Test 08/31/16 06:50 Sodium Level 139mmol/L (136-145) Potassium Level 4.2mmol/L (3.5-5.1) Chloride Level 103mmol/L (98-107) Carbon Dioxide Level 25mmol/L (21-32) Anion Gap 11 (6-14) Blood Urea Nitrogen 36mg/dL (8-26) Creatinine 1.4mg/dL (0.7-1.3) Estimated GFR (Cockcroft-Gault) 68.6 Glucose Level 98mg/dL (70-99) Calcium Level 9.4mg/dL (8.5-10.1) Phosphorus Level 3.9mg/dL (2.6-4.7) Albumin 2.6g/dL (3.4-5.0) Microbiology 08/24/16 Blood Culture - Final, Complete NO GROWTH AFTER 5 DAYS Medications Current Medications Albuterol/ Ipratropium (Duoneb) 6 ml 1X ONCE NEB Last administered on t 13:11; Start 08/24/16 at 13:30; Stop 08/24/16 at 13:31; Status DC Albuterol Sulfate (Ventolin Neb Soln) 2.5 mg STK-MED ONCE .ROUTE ; Start at 13:06; Stop 08/24/16 at 13:07; Status DC Albuterol/ Ipratropium (Duoneb) 3 ml STK-MED ONCE .ROUTE ; Start 08/24/16 at 13: 06; Stop 08/24/16 at 13:07; Status DC Ondansetron HCl (Zofran) 4 mg PRN Q8HRS PRN IV NAUSEA/VOMITING; Start 08/24/16 at 15:30; Stop 08/25/16 at 15:29; Status DC Fentanyl Citrate 50 mcg 50 mcg PRN Q2HR PRN IV PAIN; Start 08/24/16 at 15:30; Stop 08/25/16 at 15:29; Status DC Sodium Chloride (Iv Sodium Chloride 0.9% 1000ml Bag) 1,000 ml @ 100 mls/hr Q10H IV Last administered on 08/24/16 17:57; Start 08/24/16 at 16:00; Stop at 15:59; Status DC Albuterol/ Ipratropium (Duoneb) 3 ml RTQID NEB Last administered on 08/25/16 15 :02; Start 08/24/16 at 16:00; Stop 08/25/16 at 15:59; Status DC Levofloxacin/ Dextrose 1 each 1 each PRN DAILY PRN MC SEE COMMENTS; Start at 15:30; Stop 08/28/16 at 13:47; Status DC Levofloxacin/ Dextrose (LEVAQUIN 500mg PREMIX) 100 ml @ 100 mls/hr Q24H IV Last administered on 08/30/16 16:24; Start 08/24/16 at 16:00 Nicotine (Nicoderm Cq 21mg) 1 patch PRN DAILY PRN TD SMOKING CESSATION Last administered on 08/31/16 08:45; Start 08/24/16 at 16:15 Nicotine Polacrilex (Nicorette Gum) 1 each PRN Q1HR PRN BC SMOKING CESSATION; Start 08/24/16 at 16:15 Pantoprazole Sodium (Protonix Vial) 40 mg 1X ONCE IVP Last administered on 08/24 17:57; Start 08/24/16 at 16:15; Stop 08/24/16 at 16:17; Status DC Pantoprazole Sodium (Protonix) 40 mg BID PO Last administered on 08/31/16 08: 40; Start 08/24/16 at 21:00 Bupropion HCl (Wellbutrin) 100 mg BID PO Last administered on 08/31/16 08:40; Start 08/24/16 at 21:00 Furosemide (Lasix) 20 mg DAILY PO Last administered on 08/25/16 08:19; Start at 17:00; Stop 08/25/16 at 13:03; Status DC Haloperidol (Haldol) 2 mg HS PO Last administered on 08/30/16 21:04; Start 08/24/16 at 21:00 Magnesium Oxide (Magnesium Oxide) 400 mg DAILY PO Last administered on 08:40; Start 08/25/16 at 09:00 Non-Formulary Medication 40 mg DAILY PO ; Start 08/25/16 at 09:00; Status UNV Enoxaparin Sodium (Lovenox Per Pharmacy Prophylaxis Dosing) 1 each PRN DAILY PRN MC SEE COMMENTS; Start 08/24/16 at 16:45; Stop 08/28/16 at 13:47; Status DC Furosemide (Lasix) 80 mg 1X ONCE IVP Last administered on 08/24/16 17:57; Start 08/24/16 at 17:00; Stop 08/24/16 at 17:01; Status DC Enoxaparin Sodium (Lovenox 60mg Syringe) 60 mg Q12HR SQ Last administered on 08:45; Start 08/24/16 at 21:00 Furosemide (Lasix) 40 mg DAILY IVP Last administered on 08/25/16 14:22; Start 08/25/16 at 14:00; Stop 08/25/16 at 15:07; Status DC Thiamine HCl (Vitamin B-1) 100 mg DAILY PO Last administered on 08/31/16 08:40 ; Start 08/25/16 at 14:15 Vitamin B Complex (Folbic Tablet) 1 tab DAILY PO Last administered on 08:40; Start 08/26/16 at 09:00 Lorazepam (Ativan) 2 mg PRN Q1HR PRN IV For CIWA 8-14; Start 08/25/16 at 14:15 Lorazepam (Ativan) 4 mg PRN Q1HR PRN IV For CIWA 15 or greater; Start 08/25/16 at 14:15 Lorazepam (Ativan) 1 mg DAILY PO Last administered on 08/31/16 08:40; Start at 14:15 Methylprednisolone Sodium Succinate 40 mg 40 mg Q8HRS IV Last administered on 13:47; Start 08/25/16 at 15:00; Stop 08/30/16 at 20:41; Status DC Sodium Chloride 500 ml @ 0 mls/hr PRN QID PRN IV UO< 30cc/hr over previous 6hrs ; Start 08/25/16 at 15:15 Magnesium Sulfate/ Dextrose (Magnesium Sulfate PREMIX 2GM) 50 ml @ 25 mls/hr PRN DAILY PRN IV for Mag < 1.7 on am labs; Start 08/25/16 at 15:15 Albuterol/ Ipratropium (Duoneb) 3 ml RTQID NEB Last administered on 08/31/16 11:19; Start 08/25/16 at 20:00 Albuterol Sulfate (Ventolin Neb Soln) 2.5 mg PRN Q2HR PRN NEB SHORTNESS OF BREATH; Start 08/25/16 at 19:45 Methylprednisolone Sodium Succinate (Solu-Medrol 40mg Vial) 40 mg DAILY IV Last administered on 08/31/16 08:41; Start 08/31/16 at 09:00 Active Scripts Active Lasix (Furosemide) 20 Mg Tablet 1 Tab PO DAILY Magnesium Oxide 400 Mg Tablet 1 Tab PO DAILY Reported Wellbutrin (Bupropion Hcl) 100 Mg Tablet Unknown Dose PO BID Haloperidol 2 Mg Tablet Unknown Dose PO Prilosec (Omeprazole) 40 Mg Capsule.dr 40 Mg PO DAILY Exforge 5-160 Mg Tablet (Amlodipine/Valsartan) 1 Each Tablet Unknown Dose PO Vitals/I & O Vital Sign - Last 24 Hours 08/30/16 08/30/16 08/30/16 08/30/16 15:28 15:30 19:00 20:00 Temp 97.7 96.4 97.7 96.4 Pulse 94 89 Resp 20 20 B/P 145/77 128/71 Pulse Ox 69 94 O2 Delivery Room Air Room Air Nasal Cannula Nasal Cannula O2 Flow Rate 2.0 2.0 08/30/16 08/30/16 08/31/16 08/31/16 20:30 23:45 03:00 07:00 Temp 97.7 97.8 97.5 97.7 97.8 97.5 Pulse 93 82 91 Resp 20 20 16 B/P 163/82 121/89 151/84 Pulse Ox 92 90 96 O2 Delivery Room Air Nasal Cannula Nasal Cannula Nasal Cannula O2 Flow Rate 2.0 2.0 2.0 08/31/16 08/31/16 08/31/16 08/31/16 07:30 07:45 08:30 11:00 Temp 97.9 97.9 Pulse 91 Resp 16 B/P 154/98 Pulse Ox 98 96 O2 Delivery Room Air Room Air Room Air Nasal Cannula O2 Flow Rate 2.0 08/31/16 11:27 Pulse Ox 98 O2 Delivery Room Air Intake and Output 08/30/16 08/30/16 08/31/16 15:00 23:00 07:00 Intake Total 1330 ml 910 ml 1640 ml Output Total 575 ml 900 ml 800 ml Balance 755 ml 10 ml 840 ml MIKE NOLASCO III DO Aug 31, 2016 14:09
[2016-08-31 18:12] LABS: GAMMA UR 37.4 % (.); M-SPIKE, % Not Observed % (Not Observed); PROTEIN 24 UR 508.9 mg/24 hr (30.0-150.0); PROTEIN UR 29.5 mg/dL (Not Estab.)
--- NOTE | 2016-09-01 20:01 | DS ---
DATE OF DISCHARGE: 08/31/2016 ADMISSION DIAGNOSES: Hypoxia, pneumonia. DISCHARGE DIAGNOSES: Resolving hypoxia, resolving pneumonia, proteinuria. HOSPITAL COURSE: The patient is a pleasant 36-year-old male presented with pneumonia, hypoxia, and some dehydration. We consulted the Pulmonary Medicine. We gave him breathing treatments, oxygen, antibiotics. Nephrology was concerned he could have multiple myelomas because he had a lot protein. We did a 24-hour urine. The results are pending, but basically the patient is back to his baseline. We are going to discharge him and have him follow up closely with the above consults. DISPOSITION: Home. ACTIVITY: As tolerated. DIET: Low sodium. MEDICATIONS: Please see the MRAD. TOTAL TIME: 34 minutes. MIKE NOLASCO DO DR: MEY/svitlana JOB#: [id number] / [id number]
== END 2016-08-31 15:33 | disposition home or self-care (01) | DRG 291 ==
LOC: ER 11:22 → 5 NORTH 13:37
PROVIDERS: ADMIT Internal Medicine; ATTEND Internal Medicine
DX: I13.0 Hypertensive heart and chronic kidney disease with heart failure and stage 1 through stage 4 chronic kidney disease, or unspecified chronic kidney disease (principal); I50.33 Acute on chronic diastolic (congestive) heart failure; E43 Unspecified severe protein-calorie malnutrition; J18.9 Pneumonia, unspecified organism; J96.01 Acute respiratory failure with hypoxia; R65.10 Systemic inflammatory response syndrome (SIRS) of non-infectious origin without acute organ dysfunction; Z68.43 Body mass index [BMI] 50.0-59.9, adult; E66.2 Morbid (severe) obesity with alveolar hypoventilation; J44.0 Chronic obstructive pulmonary disease with (acute) lower respiratory infection; J44.1 Chronic obstructive pulmonary disease with (acute) exacerbation; K80.10 Calculus of gallbladder with chronic cholecystitis without obstruction; D63.1 Anemia in chronic kidney disease; E03.9 Hypothyroidism, unspecified; E77.8 Other disorders of glycoprotein metabolism; E78.00 Pure hypercholesterolemia, unspecified; E78.5 Hyperlipidemia, unspecified; E86.0 Dehydration; F10.20 Alcohol dependence, uncomplicated; F17.200 Nicotine dependence, unspecified, uncomplicated; F20.9 Schizophrenia, unspecified; F32.9 Major depressive disorder, single episode, unspecified; F41.9 Anxiety disorder, unspecified; G47.33 Obstructive sleep apnea (adult) (pediatric); J30.9 Allergic rhinitis, unspecified; I27.81 Cor pulmonale (chronic); K21.9 Gastro-esophageal reflux disease without esophagitis; K76.0 Fatty (change of) liver, not elsewhere classified; N18.3 Chronic kidney disease, stage 3 (moderate); R33.9 Retention of urine, unspecified; Z82.49 Family history of ischemic heart disease and other diseases of the circulatory system; Z87.11 Personal history of peptic ulcer disease; Z79.899 Other long term (current) drug therapy; Z91.013 Allergy to seafood
CPT/HCPCS: 36415; 71010; 71250; 76700; 80048; 80053; 80061; 80069; 80074; 81001; 82274; 82550; 82553; 82570; 82607; 82746; 83520; 83540; 83550; 83735; 83880; 84100; 84156; 84165; 84166; 84300; 84436; 84443; 84484; 84550; 85007; 85018; 85027; 86334; 87040; 87804; 93005; 93306; 94250; 94640; 94760; C9113; J1650; J1940; J1956; J2920; J7030; J7620; 97110; 97116; 97530; 97535; 99285-25

== ENCOUNTER 2016-09-13 08:40 | Inpatient (IN) | payer MEDICARE, MEDICAID ==
[~2016-09-13] VITALS: Ht 177.8 cm; Wt 191.5 kg
--- NOTE | 2016-09-13 09:20 | PHYS DOC ---
Past Medical History Past Medical History: Depression, GERD, High Cholesterol, Hypertension, Schizophrenia, Other Additional Past Medical Histor: Psychosis Past Surgical History: No Surgical History Additional Information: 1 ppd Alcohol Use: Heavy Additional Information: 6 pack beer daily, 1/2 pint of gin Drug Use: Marijuana Adult General Chief Complaint Chief Complaint: SHORTNESS OF BREATH HPI HPI Patient is a 36 year old male who presents with dyspnea and increased body swelling. He states over the last 2 days he's noticed swelling in his abdomen and legs in addition to worsening shortness of breath. He states he cannot lay flat secondary to feeling short of breath. He denies any chest pain abdominal pain. He states been taking all his medicines as directed. He states last time he was in the hospitalist which him to Lasix he's been compliant with this. He denies any fevers chills nausea or vomiting. He states he feels short of breath when he tries to get up to walk only a short distance. Review of Systems Review of Systems Constitutional: Denies fever or chills [] Eyes: Denies change in visual acuity, redness, or eye pain [] HENT: Denies nasal congestion or sore throat [] Respiratory: Positive for shortness of breath and orthopnea Cardiovascular: No additional information not addressed in HPI [] GI: Denies abdominal pain, nausea, vomiting, bloody stools or diarrhea [] : Denies dysuria or hematuria [] Musculoskeletal: Denies back pain or joint pain [] Integument: Denies rash or skin lesions [] Neurologic: Denies headache, focal weakness or sensory changes [] Endocrine: Denies polyuria or polydipsia [] Current Medications Current Medications Current Medications Medications (Trade) Dose Ordered Sig/Jarrett Start Time Stop Time Status Last Admin Dose Admin Furosemide (Lasix) 40 mg 1X ONCE 09/13/16 11:15 09/13/16 11:16 DC 09/13/16 11:49 40 MG Allergies Allergies Allergies Coded Allergies Type Severity Reaction Last Updated Verified shellfish derived Allergy Intermediate 08/26/16 Yes NSAIDS (Non-Steroidal Anti-Inflamma Allergy Mild "told not to take" for GI concerns 09/23/13 Yes Physical Exam Physical Exam Constitutional: Well developed, well nourished, no acute distress, non-toxic appearance. [] HENT: Normocephalic, atraumatic, bilateral external ears normal, oropharynx moist, no oral exudates, nose normal. [] Eyes: PERRLA, EOMI, conjunctiva normal, no discharge. [] Neck: Normal range of motion, no tenderness, supple, no stridor. [] Cardiovascular:Heart rate regular rhythm, no murmur [] Lungs & Thorax: Bilateral breath sounds clear to auscultation [] Abdomen: Bowel sounds normal, soft, no tenderness, no masses, no pulsatile masses. [] Skin: Warm, dry, no erythema, no rash. [] Back: No tenderness, no CVA tenderness. [] Extremities: No tenderness, no cyanosis, no clubbing, ROM intact, bilateral lower extremity edema. [] Neurologic: Alert and oriented X 3, normal motor function, normal sensory function, no focal deficits noted. [] Psychologic: Affect normal, judgement normal, mood normal. [] Current Patient Data Vital Signs Vital Signs Date Time Temp Pulse Resp B/P Pulse Ox O2 Delivery O2 Flow Rate FiO2 09/13/16 11:00 96 24 130/70 96 Room Air 09/13/16 09:07 98.0 98.0 Lab Values Laboratory Tests Test 09/13/16 10:30 09/13/16 11:25 White Blood Count 9.8x10^3/uL (4.0-11.0) Red Blood Count 2.55x10^6/uL (4.30-5.70) L Hemoglobin 8.4g/dL (13.0-17.5) L Hematocrit 24.6% (39.0-53.0) L Mean Corpuscular Volume 96fL (79-100) Mean Corpuscular Hemoglobin 33pg (25-35) Mean Corpuscular Hemoglobin Concent 34g/dL (31-37) Red Cell Distribution Width 17.2% (11.5-14.5) H Platelet Count 116x10^3/uL (140-400) L Neutrophils (%) (Auto) 63% (31-73) Lymphocytes (%) (Auto) 16% (24-48) L Monocytes (%) (Auto) 16% (0-9) H Eosinophils (%) (Auto) 3% (0-3) Basophils (%) (Auto) 2% (0-3) Neutrophils # (Auto) 6.2x10^3uL (1.8-7.7) Lymphocytes # (Auto) 1.6x10^3/uL (1.0-4.8) Monocytes # (Auto) 1.6x10^3/uL (0.0-1.1) H Eosinophils # (Auto) 0.3x10^3/uL (0.0-0.7) Basophils # (Auto) 0.2x10^3/uL (0.0-0.2) Prothrombin Time 29.8SEC (11.7-14.0) H Prothrombin Time INR 3.1 (0.8-1.1) H Sodium Level 137mmol/L (136-145) Potassium Level 4.7mmol/L (3.5-5.1) Chloride Level 100mmol/L (98-107) Carbon Dioxide Level 21mmol/L (21-32) Anion Gap 16 (6-14) H Blood Urea Nitrogen 18mg/dL (8-26) Creatinine 1.4mg/dL (0.7-1.3) H Estimated GFR (Cockcroft-Gault) 68.6 Glucose Level 94mg/dL (70-99) Calcium Level 9.0mg/dL (8.5-10.1) Magnesium Level 1.8mg/dL (1.8-2.4) Total Bilirubin 2.0mg/dL (0.2-1.0) H Direct Bilirubin 1.2mg/dL (0.0-0.2) H Aspartate Amino Transferase (AST) 41U/L (15-37) H Alanine Aminotransferase (ALT) 41U/L (16-63) Alkaline Phosphatase 396U/L (46-116) H Creatine Kinase 85U/L (39-308) Creatine Kinase MB (Mass) 1.9ng/mL (0.0-3.6) Creatine Kinase MB Relative Index 2.2% (0-4) Troponin I Quantitative < 0.017ng/mL (0.000-0.055) HD-Tcm-Z-Type Natriuretic Peptide 1473pg/mL (0-124) H Total Protein 7.5g/dL (6.4-8.2) Albumin 2.9g/dL (3.4-5.0) L Thyroid Stimulating Hormone (TSH) 4.799uIU/mL (0.358-3.74) H Urine Collection Type Void Urine Color Clementina Urine Clarity Clear Urine pH 6.0 Urine Specific [place] 1.010 Urine Protein Negativemg/dL (NEG-TRACE) Urine Glucose (UA) Negativemg/dL (NEG) Urine Ketones (Stick) Negativemg/dL (NEG) Urine Blood Moderate (NEG) Urine Nitrite Negative (NEG) Urine Bilirubin Negative (NEG) Urine Urobilinogen Dipstick 1.0mg/dL (0.2 mg/dL) Urine Leukocyte Esterase Negative (NEG) Urine RBC 11-20/HPF (0-2) Urine WBC 1-4/HPF (0-4) Urine Squamous Epithelial Cells Few/LPF Urine Bacteria Few/HPF (0-FEW) Urine Hyaline Casts Many/HPF Urine Mucus Mod/LPF Laboratory Tests 09/13/16 10:30 Laboratory Tests 09/13/16 10:30 EKG EKG EKG shows sinus rhythm [address] elevations or T-wave inversions, normal axis, QTC 457 ms, as interpreted by me. Radiology/Procedures Radiology/Procedures [facility] [address] [place] [address] IMAGING REPORT Signed PATIENT: TEO BIGGS ACCOUNT: [id number] : 1980 LOCATION: ER AGE: 36 SEX: M EXAM STATUS: REG ER ORD. PHYSICIAN: AMANDA VALENTE MD REASON: soa PROCEDURE: CHEST PA & LATERAL Exam: PA and lateral chest radiograph History: Shortness of breath for 2 to 3 days. Comparison: 08/24/2016. Findings: Cardiac silhouette appears borderline. No pneumothorax or pleural effusion is identified. Fairly extensive bilateral parenchymal airspace disease is seen, which appears worse from previous study. Impression: Interval worsening of bilateral airspace disease. Findings are nonspecific, but could be from ARDS, pulmonary edema, bilateral pneumonia, nonspecific inflammatory process, or pulmonary hemorrhage among other possibilities. DICTATED and SIGNED BY: SADAF HILL MD DATE: 09/13/16 0953 CC: AMANDA VALENTE MD; ABIGAIL STERLING Impressions: Short of breath Anasarca Course & Med Decision Making Course & Med Decision Making Pertinent Labs and Imaging studies reviewed. (See chart for details) Chest x-ray is read as pulmonary edema versus ARDS versus inflammatory process, we'll give 40 of IV Lasix 1 and admit to the hospitalist with pulmonary consultation. The patient, mom are agreeable to the plan. Patient did have some blood in his sputum upon reevaluation, will order CT angiogram to rule out PE. The hospitalist is aware of the pending tests. Dragon Disclaimer Dragon Disclaimer This electronic medical record was generated, in whole or in part, using a voice recognition dictation system. Departure Departure Impression: Primary Impression: Shortness of breath Disposition: ADMITTED INPATIENT Admitting Physician: Irving Champion Referrals: ABIGAIL STERLING (PCP) AMANDA VALENTE MD Sep 13, 2016 09:20
--- NOTE | 2016-09-13 09:27 | EKG ---
[facility] [address] [place] [address] Test Date: 2016-09-13 Test Time: 09:23:56 Pat Name: TEO BIGGS Department: Room: Gender: Male [employer]: : 1980 Requested By: AMANDA VALENTE Order Number: [id number] Reading MD: Manuel Arnold Measurements Intervals [place] Rate: 100 P: 42 UT: 166 QRS: 26 QRSD: 82 T: 63 QT: 352 QTc: 457 Interpretive Statements SINUS RHYTHM NON-SPECIFIC ST/T CHANGES LOW VOLTAGE Electronically Signed On 09-14-2016 15:40:25 CDT by Manuel Arnold
--- NOTE | 2016-09-13 09:58 | RAD ---
Exam: PA and lateral chest radiograph History: Shortness of breath for 2 to 3 days. Comparison: 08/24/2016. Findings: Cardiac silhouette appears borderline. No pneumothorax or pleural effusion is identified. Fairly extensive bilateral parenchymal airspace disease is seen, which appears worse from previous study. Impression: Interval worsening of bilateral airspace disease. Findings are nonspecific, but could be from ARDS, pulmonary edema, bilateral pneumonia, nonspecific inflammatory process, or pulmonary hemorrhage among other possibilities.
[2016-09-13 10:51] LABS: BASO # 0.2 x10^3/uL (0.0-0.2); BASO % 2 % (0-3); EOS % 3 % (0-3); HEMATOCRIT 24.6 % (39.0-53.0); HEMOGLOBIN 8.4 g/dL (13.0-17.5); LYMPH # 1.6 x10^3/uL (1.0-4.8); LYMPH % 16 % (24-48); MEAN CORPUSCULAR HEMOGLOBIN 33 pg (25-35); MEAN CORPUSCULAR HGB CONC 34 g/dL (31-37); MEAN CORPUSCULAR VOLUME 96 fL (79-100); MONO % 16 % (0-9); NEUT % 63 % (31-73); PLATELET COUNT 116 x10^3/uL (140-400); RED BLOOD COUNT 2.55 x10^6/uL (4.30-5.70); RED CELL DISTRIBUTION WIDTH 17.2 % (11.5-14.5); WHITE BLOOD COUNT 9.8 x10^3/uL (4.0-11.0)
[2016-09-13 11:00] LABS: INR 3.1 (0.8-1.1); PROTHROMBIN TIME PATIENT 29.8 SEC (11.7-14.0)
[2016-09-13 11:03] LABS: CREATININE 1.4 mg/dL (0.7-1.3); GFR 68.6; POTASSIUM 4.7 mmol/L (3.5-5.1)
[2016-09-13] MEDS ORDERED: FUROSEMIDE 40 MG/4 ML VIAL. IVP ONE ×2 (11:15→15:45)
[2016-09-13 11:16] LABS: CKMB MASS 1.9 ng/mL (0.0-3.6)
[2016-09-13 11:18] LABS: ALBUMIN 2.9 g/dL (3.4-5.0); DIRECT BILIRUBIN 1.2 mg/dL (0.0-0.2); MAGNESIUM 1.8 mg/dL (1.8-2.4); TOTAL PROTEIN 7.5 g/dL (6.4-8.2)
[2016-09-13 11:37] LABS: BILIRUBIN,URINE NEGATIVE (NEG); GLUCOSE,URINE NEGATIVE (NEG); NITRITE,URINE NEGATIVE (NEG); PROTEIN,URINE NEGATIVE (NEG-TRACE)
[2016-09-13 11:42] LABS: BACTERIA,URINE FEW /HPF (0-FEW); SQUAMOUS EPITHELIAL CELL,UR FEW /LPF
[2016-09-13] MEDS ORDERED: ONDANSETRON PF 4 MG/2 ML VIAL. IV PRN (12:30)
[2016-09-13] MEDS ORDERED: IOHEXOL 300 MG/ML 75 ML VIAL IV ONE (12:45)
[2016-09-13] MEDS ORDERED: CONTRAST GIVEN MC PRN (13:00)
--- NOTE | 2016-09-13 13:21 | RAD ---
CTA of the chest with contrast, 09/13/2016: History: Shortness of breath Multidetector CT imaging was performed following an IV bolus injection of iodinated contrast material. Multiplanar reconstructions were produced including coronal MIP images. Comparison is made to a study from 08/25/2016. The degree of opacification of the central pulmonary arteries is poor, presumably due to technical factors including the patient's size. No filling defect is seen in the main pulmonary arteries. The degree of pulmonary artery opacification is not adequate to exclude pulmonary emboli in the lobar and smaller branches. The thoracic aorta is of normal caliber. There are patchy bilateral pulmonary infiltrates which are most prominent in the left upper lobe. These infiltrates were present on the previous study and have generally improved slightly. No pleural fluid is evident. The visualized portions of the upper abdomen demonstrate a small volume of ascites. There is streaky subcutaneous edema in the upper abdomen, also evident on the previous study. Small radiopacities related to the collapsed gallbladder are probably calculi. IMPRESSION: 1. The lobar and smaller pulmonary arteries are not adequately opacified for evaluation of the possibility of pulmonary emboli. 2. Patchy bilateral pulmonary infiltrates have improved slightly since 08/25/2016. Pneumonia is suspected. 3. Small volume of ascites. 4. Anasarca. 5. Probable cholelithiasis. PQRS Compliance Statement: One or more of the following individualized dose reduction techniques were utilized for this examination: 1. Automated exposure control 2. Adjustment of the mA and/or kV according to patient size 3. Use of iterative reconstruction technique
--- NOTE | 2016-09-13 13:27 | ACF ---
Admission Forms Criteria HEART FAILURE: COMMON COMPLICATIONS Clinical Indications for Inpatient Care (Place 'X' for any and all applicable criteria): Ongoing inpatient care may be indicated for heart failure with ANY ONE of the following (1)(2)(3)(4)(5): [ ]I. Ongoing need for care for primary condition requiring frequent therapy adjustments because of changes in cardiac function (eg, drug dosage changes for drugs that are renally metabolized) [ ]II. New-onset heart failure [ ]III. Heart failure with decreased urine output not responsive to attempts to optimize volume status [ ]IV. Acute cardiac ischemia causing or associated with failure [X]V. Complications of heart failure, including ANY ONE of the following: [ ]a) Pericardial effusion [ ]b) Symptomatic pleural effusion [ ]c) O2 saturation <90% or PO2 < 60 mm Hg (8.0 kPa) on room air or require baseline supplemental O2 [ ]d) Tachypnea [X]e) Dyspnea [ ]f) Syncope [ ]g) Change in mental status [ ]h) Acute renal insufficiency that is severe (reduction of more than 50% in estimated glomerular filtration rate from baseline) or progressive reduction of more than 25% in estimated glomerular filtration rate from baseline, with creatinine continuing to rise) [ ]i) Hemodynamic instability [ ]j) Anasarca [ ]k) Clinically significant metabolic abnormalities due to heart failure (eg, new-onset metabolic acidosis) Extended stay beyond goal length of stay for primary condition may be needed until ALL of the following are present(1)(3): [ ]a) Stable and effective diuretic regimen established (or patient on stable dialysis regimen if in chronic renal failure) [ ]b) Breathing comfortably at rest [ ]c) Saturation of arterial oxygen greater than 90% or at acceptable baseline [ ]d) Pulmonary edema absent or improved [ ]e) Hemodynamic stability [ ]f) Volume status acceptable on oral medication [ ]g) Peripheral or sacral edema absent or improved [ ]h) Renal function stable and manageable at a lower level of care [ ]i) Complications (eg, pleural effusion) resolved or manageable at a lower level of care [ ]j) Patient or caregiver has received written discharge instructions or educational material addressing activity level, diet, discharge medications, follow-up appointment, weight monitoring, and what to do if symptoms worsen The original [facility] content created by [employer] has been revised. The portions of the content which have been revised are identified through the use of italic text or in bold, and [facility] has neither reviewed nor approved the modified material.All other unmodified content is copyright [facility]. Please see references footnoted in the original [facility] edition 2016 Admission Criteria Met?: Yes LETITIA STEPHENSON Sep 13, 2016 13:27
[2016-09-13 15:00] VITALS: BP 138/66
--- NOTE | 2016-09-13 15:32 | PDOC ---
Provider Note Provider Note dictated SOLEDAD SNEED MD Sep 13, 2016 15:32
--- NOTE | 2016-09-13 17:04 | CONS ---
DATE OF CONSULTATION: 09/13/2016 ATTENDING PHYSICIAN: Dr. Jazzy Robins. REASON FOR CONSULTATION: Dyspnea. HISTORY OF PRESENT ILLNESS: The patient is a 36-year-old morbidly obese male who has a BMI of 59. He was hospitalized at the beginning of August with complaint of progressive dyspnea and 80 pound weight gain in last 6 months and lower extremity edema and generalized anasarca. He was treated for lfoin-te-syucxae cor pulmonale. He also had an abnormal CT chest, which showed possibility of pneumonitis and was treated with antibiotics as well. The patient was subsequently discharged home. He is back in the hospital with complaint of increased dyspnea. He stated he has no significant cough. He said he has swelled up again and gained more weight with lower extremity edema and increased abdominal girth. He underwent CT chest, which was reviewed by me and was performed in the ER and it shows overall improving infiltrates in the left lung. The patient has had no central pulmonary emboli; however, suboptimal opacification of the lobar branches. There was small amount of ascites and anasarca and possible cholelithiasis. His last echo was in 08/2016 and it showed EF of 60-65%. It was a technically difficult study, PA pressure was 39. PAST MEDICAL HISTORY: Significant for history of morbid obesity, history of cor pulmonale, history of schizophrenia, history of tobaccoism since age 12, psychosis, history of anasarca. PAST SURGICAL HISTORY: No recent surgeries. ALLERGIES: NONSTEROIDALS. MEDICATIONS: Reviewed as listed in the MRAD. REVIEW OF SYSTEMS: Twelve-point systems were obtained, pertinent positives discussed in history of present illness, otherwise noncontributory. All systems that were negative were reviewed as well. SOCIAL HISTORY: Ongoing tobaccoism. PHYSICAL EXAMINATION: GENERAL: He is awake, following commands. He is on room air. VITAL SIGNS: Reviewed. His blood pressure is 150/71, afebrile, pulse ox 98% on room air. NECK: Supple. LUNGS: Diminished breath sounds. CARDIOVASCULAR: Regular rate and rhythm. ABDOMEN: Soft, markedly obese and distended. EXTREMITIES: With bilateral pitting edema. LABORATORY DATA: Reviewed. White cell count 9.8, hemoglobin 8.4 and platelets are 116. BUN 18, creatinine 1.4. TSH 4.7. IMPRESSION: 1. Recurrent hospitalization with [id number] cor pulmonale with ongoing weight gain and significant anasarca and lower extremity edema. 2. Abnormal CT chest with overall improving patchy infiltrates involving the left lung. He had also evidence of pneumonitis based on previous admission and radiographically it is improving. He has been treated for his pneumonia. 3. Ongoing tobaccoism and suspected underlying chronic obstructive pulmonary disease. 4. Mild pulmonary hypertension based on previous echo. 5. Suspected obstructive sleep apnea and obesity hypoventilation syndrome. 6. Underlying psychosis and schizophrenia. RECOMMENDATIONS: 1. Discussed with the patient the importance of losing weight and also importance of quitting tobacco. I would recommend diuresis. 2. Bronchodilators. 3. Sleep study as an outpatient. 4. Overall infiltrates are improving and I suspect residual radiographic lag but clinical resolution. Clinically, he does not have symptoms of acute pneumonia. 5. DVT prophylaxis. SOLEDAD SNEED MD DR: CHRISTIANO/svitlana JOB#: [id number] / [id number] GILLES
[2016-09-13 19:00] VITALS: BP 124/67
--- NOTE | 2016-09-13 19:02 | HP ---
ADMIT DATE: 09/13/2016 CHIEF COMPLAINT: Shortness of breath. HISTORY OF PRESENT ILLNESS: The patient is a pleasant 36-year-old male who drinks gin and beer daily. Basically, he has got psychiatric issues and he drinks too much. Today, he presents with shortness of breath. It seems like he has got some ascites perhaps this ____ on his diaphragm and making it hard for him to breathe. He does have some associated weakness. I have discussed the case with the ER physician. We are going to admit the patient and consult Pulmonary and Cardiology. PAST MEDICAL HISTORY: Alcoholism, CHF, hypertension, hyperlipidemia, and tobacco abuse. ALLERGIES: None. FAMILY HISTORY: Diabetes. SOCIAL HISTORY: He drinks, he smokes. No drugs. MEDICATIONS: Reviewed, please refer to the MRAD. REVIEW OF SYSTEMS: GENERAL: No history of weight change, weakness or fevers. SKIN: No bruising, hair changes or rashes. EYES: No blurred, double or loss of vision. NOSE AND THROAT: No history of nosebleeds, hoarseness or sore throat. HEART: No history of palpitations, chest pain or shortness of breath on exertion. LUNGS: Denies cough, hemoptysis, or wheezing. He complains of shortness of breath. GASTROINTESTINAL: Denies changes in appetite, nausea, vomiting, diarrhea or constipation. GENITOURINARY: No history of frequency, urgency, hesitancy or nocturia. NEUROLOGIC: Denies history of numbness, tingling, tremor or weakness. PSYCHIATRIC: No history of panic, anxiety or depression. ENDOCRINE: No history of heat or cold intolerance, polyuria or polydipsia. EXTREMITIES: Denies muscle weakness, joint pain, pain on walking or stiffness. PHYSICAL EXAMINATION: VITAL SIGNS: Temperature afebrile, pulse 68, respirations 18, and blood pressure 116/70. GENERAL: He is alert, cooperative, on the edge of the bed, little shaky, but pleasant. HEART: Normal S1, S2 with a soft S3. LUNGS: Diffuse crackles. ABDOMEN: Soft, obese, slightly tender. EXTREMITIES: 1-2+ edema. SKIN: Thin and frail. ENDOCRINE: No thyromegaly. LYMPHATICS: No cervical nodes. HEMATOPOIETIC: No bruising. LABORATORY DATA: Pending. ASSESSMENT AND PLAN: Acute on chronic systolic and diastolic heart failure with a history of alcoholism, recent pneumonia, edema, and severe tobacco abuse. The patient has been amenable to do cardiac monitoring, consult Pulmonary, consult Cardiology, frequent labs, serial enzymes, serial EKGs, consider echo if Cardiology agrees, continue home medicines and alcohol withdrawal protocol. MIKE NOLASCO DO DR: MEY/svitlana JOB#: [id number] / [id number]
[2016-09-13] MEDS: buPROPion 100 MG TABLET PO SCH (22:31)
[2016-09-13] MEDS: HALOPERIDOL 2 MG TABLET. PO SCH (22:31)
[2016-09-13] MEDS: NICOTINE 21MG PATCH. TD SCH (22:31)
[2016-09-13 23:44] VITALS: BP 156/77
[2016-09-14 02:34] LABS: BASO # 0.1 x10^3/uL (0.0-0.2); BASO % 1 % (0-3); EOS % 1 % (0-3); HEMATOCRIT 22.5 % (39.0-53.0); HEMOGLOBIN 7.5 g/dL (13.0-17.5); LYMPH # 1.1 x10^3/uL (1.0-4.8); LYMPH % 11 % (24-48); MEAN CORPUSCULAR HEMOGLOBIN 33 pg (25-35); MEAN CORPUSCULAR HGB CONC 33 g/dL (31-37); MEAN CORPUSCULAR VOLUME 98 fL (79-100); MONO % 16 % (0-9); NEUT % 71 % (31-73); PLATELET COUNT 98 x10^3/uL (140-400); RED CELL DISTRIBUTION WIDTH 17.2 % (11.5-14.5); WHITE BLOOD COUNT 10.3 x10^3/uL (4.0-11.0)
[2016-09-14 02:43] LABS: CREATININE 1.4 mg/dL (0.7-1.3); GFR 68.6; POTASSIUM 4.4 mmol/L (3.5-5.1)
[2016-09-14 03:25] VITALS: BP 116/60
[2016-09-14] MEDS: PANTOPRAZOLE 40 MG TABLET.DR. PO SCH (06:33)
[2016-09-14 07:00] VITALS: BP 132/66
[2016-09-14] MEDS ORDERED: FUROSEMIDE 20 MG TABLET PO SCH (09:00)
[2016-09-14] MEDS: CETIRIZINE HCL 10 MG TABLET. PO SCH (09:22)
[2016-09-14] MEDS: FERROUS SULFATE 325 MG TABLET. PO SCH (09:22)
[2016-09-14] MEDS: MAGNESIUM OXIDE 400 MG TABLET PO SCH (09:22)
[2016-09-14] MEDS: MULTIVITAMIN with MINERAL TABLET. PO SCH (09:22)
[2016-09-14] MEDS: NICOTINE 21MG PATCH. TD SCH (09:23)
[2016-09-14] MEDS: buPROPion 100 MG TABLET PO SCH ×2 (09:23→20:34)
[2016-09-14] MEDS: HALOPERIDOL 2 MG TABLET. PO SCH ×2 (09:23→20:34)
[2016-09-14] MEDS ORDERED: MAG HYDROX/ALUMINUM HYD/SIMETH 30 ML ORAL.SUSP PO PRN (10:30)
[2016-09-14] MEDS ORDERED: 0.9 % SODIUM CHLORIDE 10 ML DISP.SYRIN. IV PRN (10:30)
[2016-09-14] MEDS ORDERED: ALBUTEROL SULFATE 2.5 MG/3 ML NEBU. NEB PRN (10:45)
[2016-09-14 11:00] VITALS: BP 109/56
[2016-09-14] MEDS: IPRATRPIUM/ALBUTEROL 0.5/2.5MG 3 ML NEBU. NEB SCH ×3 (11:34→17:54)
[2016-09-14 15:00] VITALS: BP 105/66
--- NOTE | 2016-09-14 15:36 | PDOC ---
PULMONARY PROGRESS NOTES Subjective pt less soa Vitals Vital Signs Date Time Temp Pulse Resp B/P Pulse Ox O2 Delivery O2 Flow Rate FiO2 09/14/16 15:05 96 Room Air 09/14/16 11:00 98.8 95 18 109/56 98.8 ROS: No Nausea, No Chest Pain, No Abdominal Pain, No Increase Cough General: Alert, No acute distress Lungs: Clear Cardiovascular: S1, S2 Abdomen: Soft, Non-tender, Other (obese) Neuro Exam: Alert Extremities: Other (edema) Skin: Warm Labs Laboratory Tests Test 09/13/16 10:30 09/13/16 11:25 09/13/16 18:30 09/14/16 00:40 White Blood Count 9.8x10^3/uL (4.0-11.0) 10.3x10^3/uL (4.0-11.0) Red Blood Count 2.55x10^6/uL (4.30-5.70) 2.30x10^6/uL (4.30-5.70) Hemoglobin 8.4g/dL (13.0-17.5) 7.5g/dL (13.0-17.5) Hematocrit 24.6% (39.0-53.0) 22.5% (39.0-53.0) Mean Corpuscular Volume 96fL (79-100) 98fL (79-100) Mean Corpuscular Hemoglobin 33pg (25-35) 33pg (25-35) Mean Corpuscular Hemoglobin Concent 34g/dL (31-37) 33g/dL (31-37) Red Cell Distribution Width 17.2% (11.5-14.5) 17.2% (11.5-14.5) Platelet Count 116x10^3/uL (140-400) 98x10^3/uL (140-400) Neutrophils (%) (Auto) 63% (31-73) 71% (31-73) Lymphocytes (%) (Auto) 16% (24-48) 11% (24-48) Monocytes (%) (Auto) 16% (0-9) 16% (0-9) Eosinophils (%) (Auto) 3% (0-3) 1% (0-3) Basophils (%) (Auto) 2% (0-3) 1% (0-3) Neutrophils # (Auto) 6.2x10^3uL (1.8-7.7) 7.3x10^3uL (1.8-7.7) Lymphocytes # (Auto) 1.6x10^3/uL (1.0-4.8) 1.1x10^3/uL (1.0-4.8) Monocytes # (Auto) 1.6x10^3/uL (0.0-1.1) 1.6x10^3/uL (0.0-1.1) Eosinophils # (Auto) 0.3x10^3/uL (0.0-0.7) 0.1x10^3/uL (0.0-0.7) Basophils # (Auto) 0.2x10^3/uL (0.0-0.2) 0.1x10^3/uL (0.0-0.2) Prothrombin Time 29.8SEC (11.7-14.0) Prothromb Time International Ratio 3.1 (0.8-1.1) Sodium Level 137mmol/L (136-145) 136mmol/L (136-145) Potassium Level 4.7mmol/L (3.5-5.1) 4.4mmol/L (3.5-5.1) Chloride Level 100mmol/L (98-107) 100mmol/L (98-107) Carbon Dioxide Level 21mmol/L (21-32) 24mmol/L (21-32) Anion Gap 16 (6-14) 12 (6-14) Blood Urea Nitrogen 18mg/dL (8-26) 18mg/dL (8-26) Creatinine 1.4mg/dL (0.7-1.3) 1.4mg/dL (0.7-1.3) Estimated GFR (Cockcroft-Gault) 68.6 68.6 Glucose Level 94mg/dL (70-99) 108mg/dL (70-99) Calcium Level 9.0mg/dL (8.5-10.1) 9.0mg/dL (8.5-10.1) Magnesium Level 1.8mg/dL (1.8-2.4) Total Bilirubin 2.0mg/dL (0.2-1.0) Direct Bilirubin 1.2mg/dL (0.0-0.2) Aspartate Amino Transf (AST/SGOT) 41U/L (15-37) Alanine Aminotransferase (ALT/SGPT) 41U/L (16-63) Alkaline Phosphatase 396U/L (46-116) Creatine Kinase 85U/L (39-308) Creatine Kinase MB (Mass) 1.9ng/mL (0.0-3.6) Creatine Kinase MB Relative Index 2.2% (0-4) Troponin I Quantitative < 0.017ng/mL (0.000-0.055) < 0.017ng/mL (0.000-0.055) < 0.017ng/mL (0.000-0.055) XH-Sye-B-Type Natriuretic Peptide 1473pg/mL (0-124) Total Protein 7.5g/dL (6.4-8.2) Albumin 2.9g/dL (3.4-5.0) Thyroid Stimulating Hormone (TSH) 4.799uIU/mL (0.358-3.74) Urine Collection Type Void Urine Color Clementina Urine Clarity Clear Urine pH 6.0 Urine Specific [place] 1.010 Urine Protein Negativemg/dL (NEG-TRACE) Urine Glucose (UA) Negativemg/dL (NEG) Urine Ketones (Stick) Negativemg/dL (NEG) Urine Blood Moderate (NEG) Urine Nitrite Negative (NEG) Urine Bilirubin Negative (NEG) Urine Urobilinogen Dipstick 1.0mg/dL (0.2 mg/dL) Urine Leukocyte Esterase Negative (NEG) Urine RBC 11-20/HPF (0-2) Urine WBC 1-4/HPF (0-4) Urine Squamous Epithelial Cells Few/LPF Urine Bacteria Few/HPF (0-FEW) Urine Hyaline Casts Many/HPF Urine Mucus Mod/LPF Laboratory Tests Test 09/13/16 18:30 09/14/16 00:40 Troponin I Quantitative < 0.017ng/mL (0.000-0.055) < 0.017ng/mL (0.000-0.055) White Blood Count 10.3x10^3/uL (4.0-11.0) Red Blood Count 2.30x10^6/uL (4.30-5.70) Hemoglobin 7.5g/dL (13.0-17.5) Hematocrit 22.5% (39.0-53.0) Mean Corpuscular Volume 98fL (79-100) Mean Corpuscular Hemoglobin 33pg (25-35) Mean Corpuscular Hemoglobin Concent 33g/dL (31-37) Red Cell Distribution Width 17.2% (11.5-14.5) Platelet Count 98x10^3/uL (140-400) Neutrophils (%) (Auto) 71% (31-73) Lymphocytes (%) (Auto) 11% (24-48) Monocytes (%) (Auto) 16% (0-9) Eosinophils (%) (Auto) 1% (0-3) Basophils (%) (Auto) 1% (0-3) Neutrophils # (Auto) 7.3x10^3uL (1.8-7.7) Lymphocytes # (Auto) 1.1x10^3/uL (1.0-4.8) Monocytes # (Auto) 1.6x10^3/uL (0.0-1.1) Eosinophils # (Auto) 0.1x10^3/uL (0.0-0.7) Basophils # (Auto) 0.1x10^3/uL (0.0-0.2) Sodium Level 136mmol/L (136-145) Potassium Level 4.4mmol/L (3.5-5.1) Chloride Level 100mmol/L (98-107) Carbon Dioxide Level 24mmol/L (21-32) Anion Gap 12 (6-14) Blood Urea Nitrogen 18mg/dL (8-26) Creatinine 1.4mg/dL (0.7-1.3) Estimated GFR (Cockcroft-Gault) 68.6 Glucose Level 108mg/dL (70-99) Calcium Level 9.0mg/dL (8.5-10.1) Medications Active Scripts Medications Dose Route/Sig Days Date Category Lasix (Furosemide) 20 Mg Tablet 1 Tab PO DAILY 06/11/16 Rx Magnesium Oxide 400 Mg Tablet 1 Tab PO DAILY 06/11/16 Rx Wellbutrin (Bupropion Hcl) 100 Mg Tablet Unknown Dose PO BID 08/14/14 Reported Haloperidol 2 Mg Tablet Unknown Dose PO 08/14/14 Reported Prilosec (Omeprazole) 40 Mg Capsule.dr 40 Mg PO DAILY 08/14/14 Reported Exforge 5-160 Mg Tablet (Amlodipine/Valsartan) 1 Each Tablet Unknown Dose PO 08/14/14 Reported Impression . 1. sexjl-er-phnuopr cor pulmonale with ongoing weight gain and significant anasarca and lower extremity edema. 2. Abnormal CT chest with overall improving patchy infiltrates involving the left lung. compatible with edema 3. Ongoing tobaccoism and suspected underlying chronic obstructive pulmonary disease. 4. Mild pulmonary hypertension based on previous echo. 5. Suspected obstructive sleep apnea and obesity hypoventilation syndrome. 6. Underlying psychosis and schizophrenia. Plan . 1. conitnue diureses 2. Bronchodilators. 3. Sleep study as an outpatient. 4. clinically less likely pneumonia 5. DVT prophylaxis BAUDILIO FELIZ MD Sep 14, 2016 15:36
--- NOTE | 2016-09-14 18:15 | PDOC ---
PROGRESS NOTES Chief Complaint Chief Complaint acute hypoxic respir failure ASSESSMENT AND PLAN: 1. Acute on chronic systolic and diastolic CHF: cont IV lasix diuresis. monitor I&O 2. Recent PNA: resolving 3. COPD: suspected with significant tobaccoism. continue nebs, suppl O2, nicotine patch 4. ANNA: suspected; sleep study on O/P basis 5. Hypoventilation syndrome due to massive obesity 6. EtOH abuse: W/D prevention protocol 7. Depression, schizophrenia 8. Prophylaxis: History of Present Illness History of Present Illness breathing sl improved. severe KAYE ongoing. cough ongoing from previous PNA, occas productive. no fever, chills. Vitals Vitals Vital Signs Date Time Temp Pulse Resp B/P Pulse Ox O2 Delivery O2 Flow Rate FiO2 09/14/16 17:54 Room Air 09/14/16 15:05 96 09/14/16 15:00 99.1 95 20 105/66 99.1 Physical Exam General: Alert, Oriented X3, Cooperative, No acute distress Heart: Regular rate Lungs: Wheezing Abdomen: Normal bowel sounds, Soft, Other (massively obese) Extremities: No clubbing, Other (1+ pitting edema) Labs LABS Laboratory Tests Test 09/13/16 18:30 09/14/16 00:40 Troponin I Quantitative < 0.017ng/mL (0.000-0.055) < 0.017ng/mL (0.000-0.055) White Blood Count 10.3x10^3/uL (4.0-11.0) Red Blood Count 2.30x10^6/uL (4.30-5.70) Hemoglobin 7.5g/dL (13.0-17.5) Hematocrit 22.5% (39.0-53.0) Mean Corpuscular Volume 98fL (79-100) Mean Corpuscular Hemoglobin 33pg (25-35) Mean Corpuscular Hemoglobin Concent 33g/dL (31-37) Red Cell Distribution Width 17.2% (11.5-14.5) Platelet Count 98x10^3/uL (140-400) Neutrophils (%) (Auto) 71% (31-73) Lymphocytes (%) (Auto) 11% (24-48) Monocytes (%) (Auto) 16% (0-9) Eosinophils (%) (Auto) 1% (0-3) Basophils (%) (Auto) 1% (0-3) Neutrophils # (Auto) 7.3x10^3uL (1.8-7.7) Lymphocytes # (Auto) 1.1x10^3/uL (1.0-4.8) Monocytes # (Auto) 1.6x10^3/uL (0.0-1.1) Eosinophils # (Auto) 0.1x10^3/uL (0.0-0.7) Basophils # (Auto) 0.1x10^3/uL (0.0-0.2) Sodium Level 136mmol/L (136-145) Potassium Level 4.4mmol/L (3.5-5.1) Chloride Level 100mmol/L (98-107) Carbon Dioxide Level 24mmol/L (21-32) Anion Gap 12 (6-14) Blood Urea Nitrogen 18mg/dL (8-26) Creatinine 1.4mg/dL (0.7-1.3) Estimated GFR (Cockcroft-Gault) 68.6 Glucose Level 108mg/dL (70-99) Calcium Level 9.0mg/dL (8.5-10.1) JEWELS CONDON MD Sep 14, 2016 18:15
[2016-09-14 19:00] VITALS: BP 110/62
[2016-09-14] MEDS: FUROSEMIDE 20 MG/2 ML VIAL. IVP SCH (19:15)
[2016-09-14 23:00] VITALS: BP 133/64
[2016-09-15 03:00] VITALS: BP 101/51
[2016-09-15 06:35] LABS: BASO # 0.1 x10^3/uL (0.0-0.2); BASO % 1 % (0-3); EOS % 3 % (0-3); HEMATOCRIT 21.5 % (39.0-53.0); HEMOGLOBIN 7.1 g/dL (13.0-17.5); LYMPH # 1.4 x10^3/uL (1.0-4.8); LYMPH % 16 % (24-48); MEAN CORPUSCULAR HEMOGLOBIN 33 pg (25-35); MEAN CORPUSCULAR HGB CONC 33 g/dL (31-37); MEAN CORPUSCULAR VOLUME 99 fL (79-100); MONO % 13 % (0-9); NEUT % 67 % (31-73); PLATELET COUNT 80 x10^3/uL (140-400); RED BLOOD COUNT 2.18 x10^6/uL (4.30-5.70)
[2016-09-15 07:00] VITALS: BP 99/51
[2016-09-15] MEDS: IPRATRPIUM/ALBUTEROL 0.5/2.5MG 3 ML NEBU. NEB SCH ×4 (07:39→19:56)
[2016-09-15] MEDS: MAGNESIUM OXIDE 400 MG TABLET PO SCH (08:38)
[2016-09-15] MEDS: buPROPion 100 MG TABLET PO SCH ×2 (08:38→20:55)
[2016-09-15] MEDS: FUROSEMIDE 20 MG/2 ML VIAL. IVP SCH ×2 (08:38→14:27)
[2016-09-15] MEDS: CETIRIZINE HCL 10 MG TABLET. PO SCH (08:38)
[2016-09-15] MEDS: NICOTINE 21MG PATCH. TD SCH (08:38)
[2016-09-15] MEDS: PANTOPRAZOLE 40 MG TABLET.DR. PO SCH (08:38)
[2016-09-15] MEDS: MULTIVITAMIN with MINERAL TABLET. PO SCH (08:38)
[2016-09-15] MEDS: HALOPERIDOL 2 MG TABLET. PO SCH ×2 (08:38→20:55)
[2016-09-15] MEDS: FERROUS SULFATE 325 MG TABLET. PO SCH (08:38)
--- NOTE | 2016-09-15 09:50 | PDOC ---
PROGRESS NOTES Chief Complaint Chief Complaint acute hypoxic respir failure ASSESSMENT AND PLAN: 1. Acute on chronic systolic and diastolic CHF: s/p IV lasix diuresis. monitor I&O 2. Recent PNA: resolving 3. early COPD: suspected with significant tobaccoism. continue nebs, suppl O2 , nicotine patch 4. ANNA: suspected; sleep study on O/P basis 5. Hypoventilation syndrome due to massive obesity 6. EtOH abuse: W/D prevention protocol 7. Depression, schizophrenia 8. Prophylaxis: 9/ anemia, thrombocytopenia, suspect Amyloid or other plasma cell d/o, less likely myeloma History of Present Illness History of Present Illness Elevated [place] and [place] light chains from last month consult Heme, concern for amyloids, CK2 stable tachypneic, breathing sl improved. s LE edema Vitals Vitals Vital Signs Date Time Temp Pulse Resp B/P Pulse Ox O2 Delivery O2 Flow Rate FiO2 09/15/16 07:40 95 Room Air 09/15/16 07:00 99.1 98 28 99/51 99.1 Physical Exam General: Alert, Oriented X3, Cooperative, No acute distress Heart: Regular rate, No murmurs Lungs: Wheezing Abdomen: Normal bowel sounds, Soft, Other (massively obese) Extremities: No clubbing, Other (1+ pitting edema) Skin: Other Labs LABS Laboratory Tests Test 09/15/16 06:10 White Blood Count 9.0x10^3/uL (4.0-11.0) Red Blood Count 2.18x10^6/uL (4.30-5.70) Hemoglobin 7.1g/dL (13.0-17.5) Hematocrit 21.5% (39.0-53.0) Mean Corpuscular Volume 99fL (79-100) Mean Corpuscular Hemoglobin 33pg (25-35) Mean Corpuscular Hemoglobin Concent 33g/dL (31-37) Red Cell Distribution Width 17.0% (11.5-14.5) Platelet Count 80x10^3/uL (140-400) Neutrophils (%) (Auto) 67% (31-73) Lymphocytes (%) (Auto) 16% (24-48) Monocytes (%) (Auto) 13% (0-9) Eosinophils (%) (Auto) 3% (0-3) Basophils (%) (Auto) 1% (0-3) Neutrophils # (Auto) 6.0x10^3uL (1.8-7.7) Lymphocytes # (Auto) 1.4x10^3/uL (1.0-4.8) Monocytes # (Auto) 1.2x10^3/uL (0.0-1.1) Eosinophils # (Auto) 0.3x10^3/uL (0.0-0.7) Basophils # (Auto) 0.1x10^3/uL (0.0-0.2) Assessment and Plan Assessmemt and Plan Problems Medical Problems: (1) COPD exacerbation Status: Acute (2) Shortness of breath Status: Acute (3) SOB (shortness of breath) Status: Acute Problems: Comment Review of Relevant I have reviewed the following items maci (where applicable) has been applied. Labs Laboratory Tests Test 09/13/16 10:30 09/13/16 11:25 09/13/16 18:30 09/14/16 00:40 White Blood Count 9.8x10^3/uL (4.0-11.0) 10.3x10^3/uL (4.0-11.0) Red Blood Count 2.55x10^6/uL (4.30-5.70) 2.30x10^6/uL (4.30-5.70) Hemoglobin 8.4g/dL (13.0-17.5) 7.5g/dL (13.0-17.5) Hematocrit 24.6% (39.0-53.0) 22.5% (39.0-53.0) Mean Corpuscular Volume 96fL (79-100) 98fL (79-100) Mean Corpuscular Hemoglobin 33pg (25-35) 33pg (25-35) Mean Corpuscular Hemoglobin Concent 34g/dL (31-37) 33g/dL (31-37) Red Cell Distribution Width 17.2% (11.5-14.5) 17.2% (11.5-14.5) Platelet Count 116x10^3/uL (140-400) 98x10^3/uL (140-400) Neutrophils (%) (Auto) 63% (31-73) 71% (31-73) Lymphocytes (%) (Auto) 16% (24-48) 11% (24-48) Monocytes (%) (Auto) 16% (0-9) 16% (0-9) Eosinophils (%) (Auto) 3% (0-3) 1% (0-3) Basophils (%) (Auto) 2% (0-3) 1% (0-3) Neutrophils # (Auto) 6.2x10^3uL (1.8-7.7) 7.3x10^3uL (1.8-7.7) Lymphocytes # (Auto) 1.6x10^3/uL (1.0-4.8) 1.1x10^3/uL (1.0-4.8) Monocytes # (Auto) 1.6x10^3/uL (0.0-1.1) 1.6x10^3/uL (0.0-1.1) Eosinophils # (Auto) 0.3x10^3/uL (0.0-0.7) 0.1x10^3/uL (0.0-0.7) Basophils # (Auto) 0.2x10^3/uL (0.0-0.2) 0.1x10^3/uL (0.0-0.2) Prothrombin Time 29.8SEC (11.7-14.0) Prothromb Time International Ratio 3.1 (0.8-1.1) Sodium Level 137mmol/L (136-145) 136mmol/L (136-145) Potassium Level 4.7mmol/L (3.5-5.1) 4.4mmol/L (3.5-5.1) Chloride Level 100mmol/L (98-107) 100mmol/L (98-107) Carbon Dioxide Level 21mmol/L (21-32) 24mmol/L (21-32) Anion Gap 16 (6-14) 12 (6-14) Blood Urea Nitrogen 18mg/dL (8-26) 18mg/dL (8-26) Creatinine 1.4mg/dL (0.7-1.3) 1.4mg/dL (0.7-1.3) Estimated GFR (Cockcroft-Gault) 68.6 68.6 Glucose Level 94mg/dL (70-99) 108mg/dL (70-99) Calcium Level 9.0mg/dL (8.5-10.1) 9.0mg/dL (8.5-10.1) Magnesium Level 1.8mg/dL (1.8-2.4) Total Bilirubin 2.0mg/dL (0.2-1.0) Direct Bilirubin 1.2mg/dL (0.0-0.2) Aspartate Amino Transf (AST/SGOT) 41U/L (15-37) Alanine Aminotransferase (ALT/SGPT) 41U/L (16-63) Alkaline Phosphatase 396U/L (46-116) Creatine Kinase 85U/L (39-308) Creatine Kinase MB (Mass) 1.9ng/mL (0.0-3.6) Creatine Kinase MB Relative Index 2.2% (0-4) Troponin I Quantitative < 0.017ng/mL (0.000-0.055) < 0.017ng/mL (0.000-0.055) < 0.017ng/mL (0.000-0.055) LH-Zxr-V-Type Natriuretic Peptide 1473pg/mL (0-124) Total Protein 7.5g/dL (6.4-8.2) Albumin 2.9g/dL (3.4-5.0) Thyroid Stimulating Hormone (TSH) 4.799uIU/mL (0.358-3.74) Urine Collection Type Void Urine Color Clementina Urine Clarity Clear Urine pH 6.0 Urine Specific [place] 1.010 Urine Protein Negativemg/dL (NEG-TRACE) Urine Glucose (UA) Negativemg/dL (NEG) Urine Ketones (Stick) Negativemg/dL (NEG) Urine Blood Moderate (NEG) Urine Nitrite Negative (NEG) Urine Bilirubin Negative (NEG) Urine Urobilinogen Dipstick 1.0mg/dL (0.2 mg/dL) Urine Leukocyte Esterase Negative (NEG) Urine RBC 11-20/HPF (0-2) Urine WBC 1-4/HPF (0-4) Urine Squamous Epithelial Cells Few/LPF Urine Bacteria Few/HPF (0-FEW) Urine Hyaline Casts Many/HPF Urine Mucus Mod/LPF Test 09/15/16 06:10 White Blood Count 9.0x10^3/uL (4.0-11.0) Red Blood Count 2.18x10^6/uL (4.30-5.70) Hemoglobin 7.1g/dL (13.0-17.5) Hematocrit 21.5% (39.0-53.0) Mean Corpuscular Volume 99fL (79-100) Mean Corpuscular Hemoglobin 33pg (25-35) Mean Corpuscular Hemoglobin Concent 33g/dL (31-37) Red Cell Distribution Width 17.0% (11.5-14.5) Platelet Count 80x10^3/uL (140-400) Neutrophils (%) (Auto) 67% (31-73) Lymphocytes (%) (Auto) 16% (24-48) Monocytes (%) (Auto) 13% (0-9) Eosinophils (%) (Auto) 3% (0-3) Basophils (%) (Auto) 1% (0-3) Neutrophils # (Auto) 6.0x10^3uL (1.8-7.7) Lymphocytes # (Auto) 1.4x10^3/uL (1.0-4.8) Monocytes # (Auto) 1.2x10^3/uL (0.0-1.1) Eosinophils # (Auto) 0.3x10^3/uL (0.0-0.7) Basophils # (Auto) 0.1x10^3/uL (0.0-0.2) Laboratory Tests Test 09/15/16 06:10 White Blood Count 9.0x10^3/uL (4.0-11.0) Red Blood Count 2.18x10^6/uL (4.30-5.70) Hemoglobin 7.1g/dL (13.0-17.5) Hematocrit 21.5% (39.0-53.0) Mean Corpuscular Volume 99fL (79-100) Mean Corpuscular Hemoglobin 33pg (25-35) Mean Corpuscular Hemoglobin Concent 33g/dL (31-37) Red Cell Distribution Width 17.0% (11.5-14.5) Platelet Count 80x10^3/uL (140-400) Neutrophils (%) (Auto) 67% (31-73) Lymphocytes (%) (Auto) 16% (24-48) Monocytes (%) (Auto) 13% (0-9) Eosinophils (%) (Auto) 3% (0-3) Basophils (%) (Auto) 1% (0-3) Neutrophils # (Auto) 6.0x10^3uL (1.8-7.7) Lymphocytes # (Auto) 1.4x10^3/uL (1.0-4.8) Monocytes # (Auto) 1.2x10^3/uL (0.0-1.1) Eosinophils # (Auto) 0.3x10^3/uL (0.0-0.7) Basophils # (Auto) 0.1x10^3/uL (0.0-0.2) Medications Current Medications Furosemide (Lasix) 40 mg 1X ONCE IVP Last administered on 09/13/16 11:49; Start 09/13/16 at 11:15; Stop 09/13/16 at 11:16; Status DC Ondansetron HCl (Zofran) 4 mg PRN Q8HRS PRN IV NAUSEA/VOMITING; Start 09/13/16 at 12:30; Stop 09/14/16 at 12:29; Status DC Iohexol (Omnipaque 300 Mg/ml) 75 ml 1X ONCE IV ; Start 09/13/16 at 12:45; Stop 09/13/16 at 12:48; Status DC Info (Do NOT chart on this entry -- for MONITORING) 1 each PRN DAILY PRN MC SEE COMMENTS; Start 09/13/16 at 13:00; Stop 09/15/16 at 12:59 Furosemide (Lasix) 40 mg 1X ONCE IVP Last administered on 09/13/16 22:30; Start 09/13/16 at 15:45; Stop 09/13/16 at 15:46; Status DC Bupropion HCl (Wellbutrin) 100 mg BID PO Last administered on 09/15/16 08:38; Start 09/13/16 at 21:00 Furosemide (Lasix) 20 mg DAILY PO Last administered on 09/14/16 09:22; Start 09/14/16 at 09:00; Stop 09/14/16 at 18:22; Status DC Haloperidol (Haldol) 2 mg BID PO Last administered on 09/15/16 08:38; Start at 21:00 Magnesium Oxide (Magnesium Oxide) 400 mg DAILY PO Last administered on 08:38; Start 09/14/16 at 09:00 Pantoprazole Sodium (Protonix) 40 mg DAILYAC PO Last administered on 09/15/16 08:38; Start 09/14/16 at 07:30 Ferrous Sulfate (Feosol) 325 mg DAILYWBKFT PO Last administered on 09/15/16 08 :38; Start 09/14/16 at 08:00 Multivitamins (Thera M Plus) 1 tab DAILY PO Last administered on 09/15/16 08: 38; Start 09/14/16 at 09:00 Cetirizine HCl (Zyrtec) 10 mg DAILY PO Last administered on 09/15/16 08:38; Start 09/14/16 at 09:00 Nicotine (Nicoderm Cq 21mg) 1 patch DAILY TD Last administered on 09/15/16 08: 38; Start 09/13/16 at 18:45 Sodium Chloride (Normal Saline Flush) 3 ml PRN DAILY PRN IV AFTER MEDS AND BLOOD DRAWS; Start 09/14/16 at 10:30 Al Hydroxide/Mg Hydroxide (Mylanta Plus Xs) 30 ml PRN Q3HRS PRN PO HEARTBURN / GAS; Start 09/14/16 at 10:30 Albuterol/ Ipratropium (Duoneb) 3 ml RTQID NEB Last administered on 09/15/16 07:39; Start 09/14/16 at 12:00 Albuterol Sulfate (Ventolin Neb Soln) 2.5 mg PRN Q4HRS PRN NEB SHORTNESS OF BREATH; Start 09/14/16 at 10:45 Enoxaparin Sodium (Lovenox 60mg Syringe) 60 mg Q12HR SQ Last administered on 08:39; Start 09/14/16 at 21:00 Furosemide (Lasix) 20 mg BID92 IVP Last administered on 09/15/16 08:38; Start 09/14/16 at 18:15 Active Scripts Active Lasix (Furosemide) 20 Mg Tablet 1 Tab PO DAILY Magnesium Oxide 400 Mg Tablet 1 Tab PO DAILY Reported Wellbutrin (Bupropion Hcl) 100 Mg Tablet Unknown Dose PO BID Haloperidol 2 Mg Tablet Unknown Dose PO Prilosec (Omeprazole) 40 Mg Capsule.dr 40 Mg PO DAILY Exforge 5-160 Mg Tablet (Amlodipine/Valsartan) 1 Each Tablet Unknown Dose PO Vitals/I & O Vital Sign - Last 24 Hours 09/14/16 09/14/16 09/14/16 09/14/16 11:00 11:30 15:00 15:05 Temp 98.8 99.1 98.8 99.1 Pulse 95 95 Resp 18 20 B/P 109/56 105/66 Pulse Ox 94 96 94 96 O2 Delivery Room Air Room Air Room Air Room Air 09/14/16 09/14/16 09/14/16 09/14/16 17:54 19:00 19:45 23:00 Temp 98.8 98.7 98.8 98.7 Pulse 102 98 Resp 18 18 B/P 110/62 133/64 Pulse Ox 97 94 O2 Delivery Room Air Room Air Room Air Room Air 09/15/16 09/15/16 09/15/16 03:00 07:00 07:40 Temp 98.6 99.1 98.6 99.1 Pulse 96 98 Resp 18 28 B/P 101/51 99/51 Pulse Ox 96 91 95 O2 Delivery Room Air Room Air Room Air Intake and Output 09/14/16 09/14/16 09/15/16 15:00 23:00 07:00 Intake Total 1140 ml 420 ml Balance 1140 ml 420 ml RESHMA FRANKEL MD Sep 15, 2016 09:50
--- NOTE | 2016-09-15 11:26 | PDOC2 ---
PALOMA SMITH [facility] [facility]ER 09/15/16 1126: CARDIAC CONSULT DATE OF CONSULT Date of Consult DATE: 09/15/16 TIME: 11:17 REASON FOR CONSULT Reason for Consult: CHF REFERRING PHYSICIAN Referring Physician: Dr. Robins SOURCE Source: Chart review, Patient HISTORY OF PRESENT ILLNESS HISTORY OF PRESENT ILLNESS This is a 36 yo male, known to use from recent hospitalization, who presented with complaints of shortness of breath and worsening LE and abdominal swelling. Patient reports symptoms have been present for "awhile" but have been significantly worse in the 2 day proceeding admission. Denies any chest pain, dizziness, diaphoresis, or n/v. No recent illness or fevers. Has has mild orthopnea over the last couple of days. Patient hospitalized in early August with complaints of progressing dyspnea. Reported 80lb weight gain over the last 6 months with significant swelling in his abdomen and bilateral lower extremities. Was diureses and treated for possible pneumonitis. Patient report improvement of symptoms upon discharge. Unfortunately, patient continues to smoke and drink heavily. PAST MEDICAL HISTORY Past Medical History Cardiovascular: HTN, Hyperlipidemia, Diastolic CHF Pulmonary: possible COPD, cor pulmonale GI: GERD, Peptic Ulcer disease Heme/Onc: No pertinent hx Hepatobiliary: Other Psych: Depression, Schizophrenia Musculoskeletal: Other (elevated LFT's ) Rheumatologic: No pertinent hx Infectious disease: No pertinent hx ENT: No pertinent hx Renal/: No pertinent hx Endocrine: CRI Dermatology: No pertinent hx PAST SURGICAL HISTORY Past Surgical History: No pertinent history FAMILY HISTORY Family History: Hypertension SOCIAL HISTORY Social History Smoke: 1 pack per day ALCOHOL: heavy (6 pack beer and 1/2 pint gin daily ) Drugs: Marijuana (occasional ) Lives: with Family (mother ) CURRENT MEDICATIONS CURRENT MEDICATIONS Current Medications Medications (Trade) Dose Ordered Sig/Jarrett Route PRN Reason Start Time Stop Time Status Last Admin Dose Admin Albuterol/ Ipratropium (Duoneb) 3 ml RTQID NEB 09/14/16 12:00 09/15/16 11:00 Enoxaparin Sodium (Lovenox 60mg Syringe) 60 mg Q12HR SQ 09/14/16 21:00 09/15/16 08:39 Furosemide (Lasix) 20 mg BID92 IVP 09/14/16 18:15 09/15/16 08:38 ALLERGIES ALLERGIES: Coded Allergies: shellfish derived (Verified Allergy, Intermediate, 08/26/16) NSAIDS (Non-Steroidal Anti-Inflamma (Verified Allergy, Mild, "told not to take" for GI concerns, 09/23/13) ROS Review of System 14 point ROS conducted with pertinent positives noted above in HPI PHYSICAL EXAM General: Alert, Oriented X3, Cooperative, No acute distress HEENT: Atraumatic, Mucous membr. moist/pink Lungs: Normal air movement (diminised bases ) Heart: Regular rate, Normal S1, Normal S2, Other (2/6 systolic murmur ) Abdomen: Other (anasarca, abdomen firm, obese ) Extremities: Normal pulses, Other (significant LE edema bilaterally ) Skin: No significant lesion Neuro: Normal speech, Sensation intact Psych/Mental Status: Mental status NL, Mood NL MUSCULOSKELETAL: No joint tenderness VITALS VITALS Vital Signs Date Time Temp Pulse Resp B/P Pulse Ox O2 Delivery O2 Flow Rate FiO2 09/15/16 11:00 Room Air 09/15/16 07:40 95 09/15/16 07:00 99.1 98 28 99/51 99.1 LABS Lab: Laboratory Tests Test 09/15/16 06:10 White Blood Count 9.0x10^3/uL (4.0-11.0) Red Blood Count 2.18x10^6/uL (4.30-5.70) Hemoglobin 7.1g/dL (13.0-17.5) Hematocrit 21.5% (39.0-53.0) Mean Corpuscular Volume 99fL (79-100) Mean Corpuscular Hemoglobin 33pg (25-35) Mean Corpuscular Hemoglobin Concent 33g/dL (31-37) Red Cell Distribution Width 17.0% (11.5-14.5) Platelet Count 80x10^3/uL (140-400) Neutrophils (%) (Auto) 67% (31-73) Lymphocytes (%) (Auto) 16% (24-48) Monocytes (%) (Auto) 13% (0-9) Eosinophils (%) (Auto) 3% (0-3) Basophils (%) (Auto) 1% (0-3) Neutrophils # (Auto) 6.0x10^3uL (1.8-7.7) Lymphocytes # (Auto) 1.4x10^3/uL (1.0-4.8) Monocytes # (Auto) 1.2x10^3/uL (0.0-1.1) Eosinophils # (Auto) 0.3x10^3/uL (0.0-0.7) Basophils # (Auto) 0.1x10^3/uL (0.0-0.2) ASSESSMENT/PLAN ASSESSMENT/PLAN 1. Acute and chronic diastolic heart failure recent echo revealed normal LV function, PAP 39; technically difficult study due to body habitus. No RV dilatation noted. continue diuresis with monitoring or renal function. Will increase Lasix to 40mg BID accurate I and 0- d/w RN 2. Acute respiratory failure multifactorial given morbid obesity/hypoventilation syndrome, diastolic HF, and likely COPD/ANNA improved with diuresis per pulm 3. Hypertension controlled without meds hold home antiHTN therapy for now 4. Anemia 5. CKD baseline near 1.5 per nephrology 6. Elevated lyte chains ? amyloidosis or myeloma Hem/Onc consulted. 7. chronic alcoholism monitor for withdrawal encouraged cessation 8. Morbid obesity lifestyle/diet modification discussed/encouraged 9. Anxiety/depression/schizophrenia Problems: MARANDA GAMINO MD 09/15/16 1659: CARDIAC CONSULT ALLERGIES ALLERGIES: Coded Allergies: shellfish derived (Verified Allergy, Intermediate, 08/26/16) NSAIDS (Non-Steroidal Anti-Inflamma (Verified Allergy, Mild, "told not to take" for GI concerns, 09/23/13) ASSESSMENT/PLAN ASSESSMENT/PLAN Patient seen and examined. Agree with IT SOFTWARE DEVELOPER's assessment and plan. Continue diuresis for acute on chronic diastolic heart failure. Recent 2-D echo showed normal LV systolic function. Importance of abstinence from alcohol use reemphasized. Thank you for your consultation. Problems: PALOMA SMITH APRN Sep 15, 2016 11:26 MARANDA GAMINO MD Sep 15, 2016 16:59
[2016-09-15 11:38] VITALS: BP 102/52
[2016-09-15] MEDS: NICOTINE 14MG PATCH. TD SCH (11:48)
[2016-09-15 15:33] VITALS: BP 112/51
--- NOTE | 2016-09-15 16:22 | PDOC ---
Provider Note Provider Note Onc consult dictated- [id number] Acute on chronic anemia Mild thrombocytopenia intermittently EtOH abuse Mild CKD Anasarca Hepatomegaly due to steatosis Unclear cause of anemia thus far. Amyloidosis is reasonable consideration but pt declines bmbx for now. Will set up f/u as outpt. MARCE PATEL DO Sep 15, 2016 16:22
[2016-09-15 19:35] VITALS: BP 139/69
[2016-09-15 23:20] VITALS: BP 111/54
[2016-09-16 03:14] VITALS: BP 96/47
[2016-09-16 04:36] LABS: BASO # 0.1 x10^3/uL (0.0-0.2); BASO % 1 % (0-3); EOS % 5 % (0-3); HEMATOCRIT 22.4 % (39.0-53.0); HEMOGLOBIN 7.5 g/dL (13.0-17.5); LYMPH # 1.3 x10^3/uL (1.0-4.8); LYMPH % 16 % (24-48); MEAN CORPUSCULAR HEMOGLOBIN 33 pg (25-35); MEAN CORPUSCULAR HGB CONC 33 g/dL (31-37); MEAN CORPUSCULAR VOLUME 99 fL (79-100); MONO % 13 % (0-9); NEUT % 65 % (31-73); PLATELET COUNT 76 x10^3/uL (140-400); RED BLOOD COUNT 2.27 x10^6/uL (4.30-5.70); RED CELL DISTRIBUTION WIDTH 17.7 % (11.5-14.5); WHITE BLOOD COUNT 8.1 x10^3/uL (4.0-11.0)
[2016-09-16 04:39] LABS: INR 3.6 (0.8-1.1); PROTHROMBIN TIME PATIENT 33.5 SEC (11.7-14.0)
--- NOTE | 2016-09-16 04:53 | CONS ---
DATE OF CONSULTATION: 09/15/2016 REFERRING PROVIDER: Jazzy Robins M.D. REASON FOR CONSULTATION: Anemia, thrombocytopenia, possible amyloidosis. HISTORY OF PRESENT ILLNESS: The patient is a 36-year-old -[place] male who presented to the hospital with acute on chronic diastolic heart failure and shortness of breath. He has undergone diuresis. He still has extensive lower extremity edema. While here, he was noted to have worsening anemia. Review of the medical record shows in 2014, his hemoglobin was normal. In 05/2016, his hemoglobin was 11, it has now dropped to 7.1. He has also had mild thrombocytopenia with a platelet count of 80, new this admission. Creatinine is 1.4. BNP is elevated at 1473. SPEP revealed no monoclonal spike. B12, folic acid, and iron levels have been normal. TSH is normal. He denies any symptoms currently at this time. PAST MEDICAL HISTORY: Morbid obesity, depression, heartburn, hyperlipidemia, hypertension, schizophrenia, tobacco, alcohol abuse, anasarca. PAST SURGICAL HISTORY: Negative. FAMILY HISTORY: Mom has COPD and anemia. Dad's history is unknown. SOCIAL HISTORY: He has smoked one pack a day for at least 20 years. He drinks at least 6 packs of beer and half pint of gin daily. He does not think he can probably quit drinking alcohol. ALLERGIES: NSAID. CURRENT MEDICATIONS: Lasix, potassium, Nicoderm, Lovenox, DuoNeb, Mylanta, Zyrtec, multivitamin, magnesium oxide, iron, Protonix, Haldol, Wellbutrin. REVIEW OF SYSTEMS: Ten-point review of systems completed and unremarkable with the exception of his extensive lower extremity edema. PHYSICAL EXAMINATION: VITAL SIGNS: Temperature 99.0, pulse 97, respiratory rate 26, blood pressure 112/51, O2 93% on room air. GENERAL: He is alert and oriented, morbidly obese, no distress. HEENT: Extraocular muscles are intact. Sclerae are without icterus. Mucous membranes are moist. CARDIOVASCULAR: Heart is regular in rhythm and rate. LUNGS: Clear to auscultation bilaterally. ABDOMEN: Obese, soft, nontender. EXTREMITIES: 3+ edema chronically in bilateral lower extremities. NEUROLOGIC: No focal deficits. IMAGING AND LABORATORY DATA: Pertinent lab findings reviewed as above. Per review of the Cardiology note, recent echocardiogram showed normal LV function, pulmonary arterial pressure at 39, technically limited study due to body habitus. Abdominal ultrasound revealed hepatomegaly with steatosis, right hepatic lobe lesion of unclear etiology. ASSESSMENT AND PLAN: The patient is a 36-year-old -[place] male with the following medical problems: 1. Progressive anemia since 2015, normocytic. 2. Acute on chronic thrombocytopenia. 3. Alcohol abuse. He does not think he can quit drinking alcohol. 4. Chronic diastolic heart failure. 5. Mild renal insufficiency. 6. Morbid obesity. 7. Hepatomegaly with hepatic steatosis Initial studies have not provided an etiology of the anemia and mild thrombocytopenia. SPEP was unremarkable, but I did add on serum immunofixation and free light chain ratio for further confirmation. All of these changes could be related to his heavy alcohol abuse. However, I did recommend a bone marrow biopsy for thorough evaluation. However, he declines this currently. He was agreeable to follow up with me in clinic in 2 weeks with a repeat lab and consideration of bone marrow biopsy at that time. His underlying hepatomegaly could certainly be contributing as well. Thank you for allowing me to participate in his care. Discussed with Dr. Robins. DO KAILEE PALAFOX MRA/svitlana JOB#: [id number] / [id number] GILLES
[2016-09-16 05:02] LABS: ALBUMIN 2.5 g/dL (3.4-5.0); ALBUMIN/GLOBULIN RATIO 0.5 (1.0-1.7); CALCIUM 8.7 mg/dL (8.5-10.1); CREATININE 1.4 mg/dL (0.7-1.3); GFR 68.6; POTASSIUM 3.6 mmol/L (3.5-5.1); TOTAL BILIRUBIN 1.9 mg/dL (0.2-1.0); TOTAL PROTEIN 7.1 g/dL (6.4-8.2)
[2016-09-16 07:00] VITALS: BP 96/55
[2016-09-16] MEDS: IPRATRPIUM/ALBUTEROL 0.5/2.5MG 3 ML NEBU. NEB SCH ×4 (07:06→19:58)
[2016-09-16] MEDS: MULTIVITAMIN with MINERAL TABLET. PO SCH (09:45)
[2016-09-16] MEDS: MAGNESIUM OXIDE 400 MG TABLET PO SCH (09:45)
[2016-09-16] MEDS: PANTOPRAZOLE 40 MG TABLET.DR. PO SCH (09:46)
[2016-09-16] MEDS: buPROPion 100 MG TABLET PO SCH ×2 (09:46→22:13)
[2016-09-16] MEDS: CETIRIZINE HCL 10 MG TABLET. PO SCH (09:46)
[2016-09-16] MEDS: FUROSEMIDE 40 MG/4 ML VIAL. IVP SCH ×2 (09:47→14:09)
[2016-09-16] MEDS: FERROUS SULFATE 325 MG TABLET. PO SCH (09:48)
[2016-09-16] MEDS: HALOPERIDOL 2 MG TABLET. PO SCH ×2 (09:48→22:13)
[2016-09-16] MEDS: POTASSIUM CHLORIDE 20 MEQ TABLET.ER. PO SCH (09:48)
[2016-09-16] MEDS: NICOTINE 14MG PATCH. TD SCH (09:49)
[2016-09-16 11:00] VITALS: BP 111/63
--- NOTE | 2016-09-16 12:19 | PDOC ---
CARDIO Progress Notes Date and Time Date of Service 09/16/2016 Time of Evaluation 1130 Subjective Subjective: No Chest Pain, No shortness of breath, No Palpitations, No Dizziness Vitals Vitals Vital Signs Date Time Temp Pulse Resp B/P Pulse Ox O2 Delivery O2 Flow Rate FiO2 09/16/16 11:00 97.7 96 20 111/63 97 Room Air 97.7 Weight Weight [ ] Input and Output Intake and Output Intake and Output 09/16/16 06:59 Intake Total 1900 ml Balance 1900 ml Intake Oral 1900 ml # Voids 3 # Bowel Movements 1 Laboratory Labs Laboratory Tests Test 09/16/16 04:08 White Blood Count 8.1x10^3/uL (4.0-11.0) Red Blood Count 2.27x10^6/uL (4.30-5.70) Hemoglobin 7.5g/dL (13.0-17.5) Hematocrit 22.4% (39.0-53.0) Mean Corpuscular Volume 99fL (79-100) Mean Corpuscular Hemoglobin 33pg (25-35) Mean Corpuscular Hemoglobin Concent 33g/dL (31-37) Red Cell Distribution Width 17.7% (11.5-14.5) Platelet Count 76x10^3/uL (140-400) Neutrophils (%) (Auto) 65% (31-73) Lymphocytes (%) (Auto) 16% (24-48) Monocytes (%) (Auto) 13% (0-9) Eosinophils (%) (Auto) 5% (0-3) Basophils (%) (Auto) 1% (0-3) Neutrophils # (Auto) 5.3x10^3uL (1.8-7.7) Lymphocytes # (Auto) 1.3x10^3/uL (1.0-4.8) Monocytes # (Auto) 1.0x10^3/uL (0.0-1.1) Eosinophils # (Auto) 0.4x10^3/uL (0.0-0.7) Basophils # (Auto) 0.1x10^3/uL (0.0-0.2) Prothrombin Time 33.5SEC (11.7-14.0) Prothromb Time International Ratio 3.6 (0.8-1.1) Sodium Level 137mmol/L (136-145) Potassium Level 3.6mmol/L (3.5-5.1) Chloride Level 103mmol/L (98-107) Carbon Dioxide Level 25mmol/L (21-32) Anion Gap 9 (6-14) Blood Urea Nitrogen 12mg/dL (8-26) Creatinine 1.4mg/dL (0.7-1.3) Estimated GFR (Cockcroft-Gault) 68.6 BUN/Creatinine Ratio 9 (6-20) Glucose Level 91mg/dL (70-99) Calcium Level 8.7mg/dL (8.5-10.1) Total Bilirubin 1.9mg/dL (0.2-1.0) Aspartate Amino Transf (AST/SGOT) 31U/L (15-37) Alanine Aminotransferase (ALT/SGPT) 27U/L (16-63) Alkaline Phosphatase 297U/L (46-116) Total Protein 7.1g/dL (6.4-8.2) Albumin 2.5g/dL (3.4-5.0) Albumin/Globulin Ratio 0.5 (1.0-1.7) Physical Exam HEENT: Neck Supple W Full Motion Chest: Symmetric LUNGS: Clear to Auscultation Heart: S1S2, RRR, murmurs (2/6 systolic murmur ) Abdomen: Other (ansarca) Extremities: No Calf Tenderness, Other (unable to appreciate degree of edema with large LE and obesity) Neurology: alert, oriented, follow commands Assessment Assessment 1. Acute and chronic diastolic heart failure: ANNA/morbid obesity and possible liver disease. Better. 2. COPD/mild to mod pulmonary HTN: pulmonary following 3. Hypertension: well controlled. TTE with normal EF and wall motion 4. Normocytic anemia with coagulopathy (INR 3.6): Hgb 7.5 liver disease? with underlying ETOHism. Hemonc following 5. CKD3: nephrology following 6. Chronic alcoholism: per PCP 7. Anxiety/depression/schizophrenia 8. Subclinical hypothyroidism: recently 7s now at 4.8. New? 9. GI bleed? seen by GI from previous admission suggesting siddiqui endoscopy? Recommendations 1. Continue with lasix therapy 2. Supportive care. 3. Unable to place on BB currently with low BP 4. Will likely need blood transfusion. Will defer to Hemonc 5. Strict I & O GALIMBA,JHUNNE M [employer] ATTENDANT Sep 16, 2016 12:19
--- NOTE | 2016-09-16 13:13 | PDOC ---
PROGRESS NOTES Chief Complaint Chief Complaint acute hypoxic respir failure I think this patient has early liver failure, INR going up, bili up, plts down, consult GI ASSESSMENT AND PLAN: 1. Acute on chronic systolic and diastolic CHF: s/p IV lasix diuresis. monitor I&O 2. Recent PNA: resolving 3. early COPD: suspected with significant tobaccoism. continue nebs, suppl O2 , nicotine patch 4. ANNA: suspected; sleep study on O/P basis 5. Hypoventilation syndrome due to massive obesity 6. EtOH abuse: W/D prevention protocol 7. Depression, schizophrenia 8. Prophylaxis: 9/ anemia, thrombocytopenia, suspect Amyloid or other plasma cell d/o, less likely myeloma History of Present Illness History of Present Illness Elevated [place] and [place] light chains consulted Heme, concern for amyloids, could all be liver failure CK2 stable tachypneic, breathing sl improved. s LE edema Vitals Vitals Vital Signs Date Time Temp Pulse Resp B/P Pulse Ox O2 Delivery O2 Flow Rate FiO2 09/16/16 11:00 97.7 96 20 111/63 97 Room Air 97.7 Physical Exam General: Alert, Oriented X3, Cooperative, No acute distress Heart: Regular rate, Normal S1, Normal S2, Other (2/6 systolic murmur ) Lungs: Wheezing Abdomen: Normal bowel sounds, Soft, Other (anasarca, abdomen firm, obese ) Extremities: No clubbing, Normal pulses, Other (significant LE edema bilaterally ) Skin: No rashes, No significant lesion Labs LABS Laboratory Tests Test 09/16/16 04:08 White Blood Count 8.1x10^3/uL (4.0-11.0) Red Blood Count 2.27x10^6/uL (4.30-5.70) Hemoglobin 7.5g/dL (13.0-17.5) Hematocrit 22.4% (39.0-53.0) Mean Corpuscular Volume 99fL (79-100) Mean Corpuscular Hemoglobin 33pg (25-35) Mean Corpuscular Hemoglobin Concent 33g/dL (31-37) Red Cell Distribution Width 17.7% (11.5-14.5) Platelet Count 76x10^3/uL (140-400) Neutrophils (%) (Auto) 65% (31-73) Lymphocytes (%) (Auto) 16% (24-48) Monocytes (%) (Auto) 13% (0-9) Eosinophils (%) (Auto) 5% (0-3) Basophils (%) (Auto) 1% (0-3) Neutrophils # (Auto) 5.3x10^3uL (1.8-7.7) Lymphocytes # (Auto) 1.3x10^3/uL (1.0-4.8) Monocytes # (Auto) 1.0x10^3/uL (0.0-1.1) Eosinophils # (Auto) 0.4x10^3/uL (0.0-0.7) Basophils # (Auto) 0.1x10^3/uL (0.0-0.2) Prothrombin Time 33.5SEC (11.7-14.0) Prothromb Time International Ratio 3.6 (0.8-1.1) Sodium Level 137mmol/L (136-145) Potassium Level 3.6mmol/L (3.5-5.1) Chloride Level 103mmol/L (98-107) Carbon Dioxide Level 25mmol/L (21-32) Anion Gap 9 (6-14) Blood Urea Nitrogen 12mg/dL (8-26) Creatinine 1.4mg/dL (0.7-1.3) Estimated GFR (Cockcroft-Gault) 68.6 BUN/Creatinine Ratio 9 (6-20) Glucose Level 91mg/dL (70-99) Calcium Level 8.7mg/dL (8.5-10.1) Total Bilirubin 1.9mg/dL (0.2-1.0) Aspartate Amino Transf (AST/SGOT) 31U/L (15-37) Alanine Aminotransferase (ALT/SGPT) 27U/L (16-63) Alkaline Phosphatase 297U/L (46-116) Total Protein 7.1g/dL (6.4-8.2) Albumin 2.5g/dL (3.4-5.0) Albumin/Globulin Ratio 0.5 (1.0-1.7) Assessment and Plan Assessmemt and Plan Problems Medical Problems: (1) COPD exacerbation Status: Acute (2) Shortness of breath Status: Acute (3) SOB (shortness of breath) Status: Acute Problems: Comment Review of Relevant I have reviewed the following items maci (where applicable) has been applied. Labs Laboratory Tests Test 4/26/17 06:10 09/16/16 04:08 White Blood Count 9.0x10^3/uL (4.0-11.0) 8.1x10^3/uL (4.0-11.0) Red Blood Count 2.18x10^6/uL (4.30-5.70) 2.27x10^6/uL (4.30-5.70) Hemoglobin 7.1g/dL (13.0-17.5) 7.5g/dL (13.0-17.5) Hematocrit 21.5% (39.0-53.0) 22.4% (39.0-53.0) Mean Corpuscular Volume 99fL (79-100) 99fL (79-100) Mean Corpuscular Hemoglobin 33pg (25-35) 33pg (25-35) Mean Corpuscular Hemoglobin Concent 33g/dL (31-37) 33g/dL (31-37) Red Cell Distribution Width 17.0% (11.5-14.5) 17.7% (11.5-14.5) Platelet Count 80x10^3/uL (140-400) 76x10^3/uL (140-400) Neutrophils (%) (Auto) 67% (31-73) 65% (31-73) Lymphocytes (%) (Auto) 16% (24-48) 16% (24-48) Monocytes (%) (Auto) 13% (0-9) 13% (0-9) Eosinophils (%) (Auto) 3% (0-3) 5% (0-3) Basophils (%) (Auto) 1% (0-3) 1% (0-3) Neutrophils # (Auto) 6.0x10^3uL (1.8-7.7) 5.3x10^3uL (1.8-7.7) Lymphocytes # (Auto) 1.4x10^3/uL (1.0-4.8) 1.3x10^3/uL (1.0-4.8) Monocytes # (Auto) 1.2x10^3/uL (0.0-1.1) 1.0x10^3/uL (0.0-1.1) Eosinophils # (Auto) 0.3x10^3/uL (0.0-0.7) 0.4x10^3/uL (0.0-0.7) Basophils # (Auto) 0.1x10^3/uL (0.0-0.2) 0.1x10^3/uL (0.0-0.2) Prothrombin Time 33.5SEC (11.7-14.0) Prothromb Time International Ratio 3.6 (0.8-1.1) Sodium Level 137mmol/L (136-145) Potassium Level 3.6mmol/L (3.5-5.1) Chloride Level 103mmol/L (98-107) Carbon Dioxide Level 25mmol/L (21-32) Anion Gap 9 (6-14) Blood Urea Nitrogen 12mg/dL (8-26) Creatinine 1.4mg/dL (0.7-1.3) Estimated GFR (Cockcroft-Gault) 68.6 BUN/Creatinine Ratio 9 (6-20) Glucose Level 91mg/dL (70-99) Calcium Level 8.7mg/dL (8.5-10.1) Total Bilirubin 1.9mg/dL (0.2-1.0) Aspartate Amino Transf (AST/SGOT) 31U/L (15-37) Alanine Aminotransferase (ALT/SGPT) 27U/L (16-63) Alkaline Phosphatase 297U/L (46-116) Total Protein 7.1g/dL (6.4-8.2) Albumin 2.5g/dL (3.4-5.0) Albumin/Globulin Ratio 0.5 (1.0-1.7) Laboratory Tests Test 09/16/16 04:08 White Blood Count 8.1x10^3/uL (4.0-11.0) Red Blood Count 2.27x10^6/uL (4.30-5.70) Hemoglobin 7.5g/dL (13.0-17.5) Hematocrit 22.4% (39.0-53.0) Mean Corpuscular Volume 99fL (79-100) Mean Corpuscular Hemoglobin 33pg (25-35) Mean Corpuscular Hemoglobin Concent 33g/dL (31-37) Red Cell Distribution Width 17.7% (11.5-14.5) Platelet Count 76x10^3/uL (140-400) Neutrophils (%) (Auto) 65% (31-73) Lymphocytes (%) (Auto) 16% (24-48) Monocytes (%) (Auto) 13% (0-9) Eosinophils (%) (Auto) 5% (0-3) Basophils (%) (Auto) 1% (0-3) Neutrophils # (Auto) 5.3x10^3uL (1.8-7.7) Lymphocytes # (Auto) 1.3x10^3/uL (1.0-4.8) Monocytes # (Auto) 1.0x10^3/uL (0.0-1.1) Eosinophils # (Auto) 0.4x10^3/uL (0.0-0.7) Basophils # (Auto) 0.1x10^3/uL (0.0-0.2) Prothrombin Time 33.5SEC (11.7-14.0) Prothromb Time International Ratio 3.6 (0.8-1.1) Sodium Level 137mmol/L (136-145) Potassium Level 3.6mmol/L (3.5-5.1) Chloride Level 103mmol/L (98-107) Carbon Dioxide Level 25mmol/L (21-32) Anion Gap 9 (6-14) Blood Urea Nitrogen 12mg/dL (8-26) Creatinine 1.4mg/dL (0.7-1.3) Estimated GFR (Cockcroft-Gault) 68.6 BUN/Creatinine Ratio 9 (6-20) Glucose Level 91mg/dL (70-99) Calcium Level 8.7mg/dL (8.5-10.1) Total Bilirubin 1.9mg/dL (0.2-1.0) Aspartate Amino Transf (AST/SGOT) 31U/L (15-37) Alanine Aminotransferase (ALT/SGPT) 27U/L (16-63) Alkaline Phosphatase 297U/L (46-116) Total Protein 7.1g/dL (6.4-8.2) Albumin 2.5g/dL (3.4-5.0) Albumin/Globulin Ratio 0.5 (1.0-1.7) Medications Current Medications Furosemide (Lasix) 40 mg 1X ONCE IVP Last administered on 09/13/16 11:49; Start 09/13/16 at 11:15; Stop 09/13/16 at 11:16; Status DC Ondansetron HCl (Zofran) 4 mg PRN Q8HRS PRN IV NAUSEA/VOMITING; Start 09/13/16 at 12:30; Stop 09/14/16 at 12:29; Status DC Iohexol (Omnipaque 300 Mg/ml) 75 ml 1X ONCE IV ; Start 09/13/16 at 12:45; Stop 09/13/16 at 12:48; Status DC Info (Do NOT chart on this entry -- for MONITORING) 1 each PRN DAILY PRN MC SEE COMMENTS; Start 09/13/16 at 13:00; Stop 09/15/16 at 12:59; Status DC Furosemide (Lasix) 40 mg 1X ONCE IVP Last administered on 09/13/16 22:30; Start 09/13/16 at 15:45; Stop 09/13/16 at 15:46; Status DC Bupropion HCl (Wellbutrin) 100 mg BID PO Last administered on 09/16/16 09:46; Start 09/13/16 at 21:00 Furosemide (Lasix) 20 mg DAILY PO Last administered on 09/14/16 09:22; Start 09/14/16 at 09:00; Stop 09/14/16 at 18:22; Status DC Haloperidol (Haldol) 2 mg BID PO Last administered on 09/16/16 09:48; Start at 21:00 Magnesium Oxide (Magnesium Oxide) 400 mg DAILY PO Last administered on 09:45; Start 09/14/16 at 09:00 Pantoprazole Sodium (Protonix) 40 mg DAILYAC PO Last administered on 09/16/16 09:46; Start 09/14/16 at 07:30 Ferrous Sulfate (Feosol) 325 mg DAILYWBKFT PO Last administered on 09/16/16 09 :48; Start 09/14/16 at 08:00 Multivitamins (Thera M Plus) 1 tab DAILY PO Last administered on 09/16/16 09: 45; Start 09/14/16 at 09:00 Cetirizine HCl (Zyrtec) 10 mg DAILY PO Last administered on 09/16/16 09:46; Start 09/14/16 at 09:00 Nicotine (Nicoderm Cq 21mg) 1 patch DAILY TD Last administered on 09/15/16 08: 38; Start 09/13/16 at 18:45; Stop 09/15/16 at 09:48; Status DC Sodium Chloride (Normal Saline Flush) 3 ml PRN DAILY PRN IV AFTER MEDS AND BLOOD DRAWS; Start 09/14/16 at 10:30 Al Hydroxide/Mg Hydroxide (Mylanta Plus Xs) 30 ml PRN Q3HRS PRN PO HEARTBURN / GAS; Start 09/14/16 at 10:30 Albuterol/ Ipratropium (Duoneb) 3 ml RTQID NEB Last administered on 09/16/16 10:50; Start 09/14/16 at 12:00 Albuterol Sulfate (Ventolin Neb Soln) 2.5 mg PRN Q4HRS PRN NEB SHORTNESS OF BREATH; Start 09/14/16 at 10:45 Enoxaparin Sodium (Lovenox 60mg Syringe) 60 mg Q12HR SQ Last administered on 09:50; Start 09/14/16 at 21:00 Furosemide (Lasix) 20 mg BID92 IVP Last administered on 09/15/16 14:27; Start 09/14/16 at 18:15; Stop 09/15/16 at 15:15; Status DC Nicotine (Nicoderm Cq 14mg) 1 patch DAILY TD Last administered on 09/16/16 09: 49; Start 09/15/16 at 10:30 Furosemide (Lasix) 40 mg BID92 IVP Last administered on 09/16/16 09:47; Start 09/16/16 at 09:00 Potassium Chloride (Klor-Con) 20 meq DAILYWBKFT PO Last administered on 09:48; Start 09/16/16 at 08:00 Active Scripts Active Lasix (Furosemide) 20 Mg Tablet 1 Tab PO DAILY Magnesium Oxide 400 Mg Tablet 1 Tab PO DAILY Reported Wellbutrin (Bupropion Hcl) 100 Mg Tablet Unknown Dose PO BID Haloperidol 2 Mg Tablet Unknown Dose PO Prilosec (Omeprazole) 40 Mg Capsule.dr 40 Mg PO DAILY Exforge 5-160 Mg Tablet (Amlodipine/Valsartan) 1 Each Tablet Unknown Dose PO Vitals/I & O Vital Sign - Last 24 Hours 09/15/16 09/15/16 09/15/16 09/15/16 15:01 15:33 19:35 19:44 Temp 99.0 97.7 99.0 97.7 Pulse 97 100 Resp B/P 112/51 139/69 Pulse Ox 93 97 O2 Delivery Room Air Room Air Room Air Room Air 09/15/16 09/15/16 09/16/16 09/16/16 19:57 23:20 03:14 07:00 Temp 98.6 98.1 98.1 98.6 98.1 98.1 Pulse 100 97 99 Resp B/P 111/54 96/47 96/55 Pulse Ox 98 97 99 94 O2 Delivery Room Air Room Air Room Air Room Air 09/16/16 09/16/16 09/16/16 09/16/16 07:06 08:00 10:50 11:00 Temp 97.7 97.7 Pulse 96 Resp B/P 111/63 Pulse Ox 98 97 O2 Delivery Room Air Room Air Room Air Room Air Intake and Output 09/15/16 09/15/16 09/16/16 14:59 22:59 06:59 Intake Total 480 ml 720 ml 700 ml Balance 480 ml 720 ml 700 ml RESHMA FRANKEL MD Sep 16, 2016 13:13
[2016-09-16] MEDS ORDERED: PHYTONADIONE (VIT K1) 10 MG in IV NORMAL SALINE 50ML 50 ML IV ONE (14:00)
--- NOTE | 2016-09-16 14:57 | PDOC2 ---
GI CONSULT Reason For Consult: Liver failure HPI: HPI: Known to GI w/ recent consult for anemia, recommended EGD and colonoscopy once heart/lung status improved. On this occasion, readmitted again w/ acute on chronic heart and resp failure. Describes increasing SOA and swelling. Passed a little blood w/ stool a few days ago, similar to past episodes. No n/v, reflux, abd pain, diarrhea, constipation. Drank beers and half a pint of liquor on Tuesday. GI asked to see re: liver failure. Bili 1.9, Alk Phos 297, INR 3.6. Vit K planned. PMH: PMH: CHF, HTN, HLD, COPD, PUD, elevated LFTs, anemia, depression, schizophrenia FH: Family History: No pertinent hx (denies GI cancers) Social History: Smoke: 1 pack per day ALCOHOL: heavy Drugs: Marijuana ROS: GEN: Denies fevers, chills, sweats HEENT: Denies blurred vision, sore throat CV: Denies chest pain RESP: +SOA GI: Per HPI : Denies hematuria, dysuria ENDO: +weight gain NEURO: Denies confusion, dizziness MSK: +swelling SKIN: Denies jaundice, pruritus VItals: Vitals: Vital Signs Date Time Temp Pulse Resp B/P Pulse Ox O2 Delivery O2 Flow Rate FiO2 09/16/16 11:00 97.7 96 20 111/63 97 Room Air 97.7 Labs: Labs: Laboratory Tests Test 09/16/16 04:08 White Blood Count 8.1x10^3/uL (4.0-11.0) Red Blood Count 2.27x10^6/uL (4.30-5.70) Hemoglobin 7.5g/dL (13.0-17.5) Hematocrit 22.4% (39.0-53.0) Mean Corpuscular Volume 99fL (79-100) Mean Corpuscular Hemoglobin 33pg (25-35) Mean Corpuscular Hemoglobin Concent 33g/dL (31-37) Red Cell Distribution Width 17.7% (11.5-14.5) Platelet Count 76x10^3/uL (140-400) Neutrophils (%) (Auto) 65% (31-73) Lymphocytes (%) (Auto) 16% (24-48) Monocytes (%) (Auto) 13% (0-9) Eosinophils (%) (Auto) 5% (0-3) Basophils (%) (Auto) 1% (0-3) Neutrophils # (Auto) 5.3x10^3uL (1.8-7.7) Lymphocytes # (Auto) 1.3x10^3/uL (1.0-4.8) Monocytes # (Auto) 1.0x10^3/uL (0.0-1.1) Eosinophils # (Auto) 0.4x10^3/uL (0.0-0.7) Basophils # (Auto) 0.1x10^3/uL (0.0-0.2) Prothrombin Time 33.5SEC (11.7-14.0) Prothromb Time International Ratio 3.6 (0.8-1.1) Sodium Level 137mmol/L (136-145) Potassium Level 3.6mmol/L (3.5-5.1) Chloride Level 103mmol/L (98-107) Carbon Dioxide Level 25mmol/L (21-32) Anion Gap 9 (6-14) Blood Urea Nitrogen 12mg/dL (8-26) Creatinine 1.4mg/dL (0.7-1.3) Estimated GFR (Cockcroft-Gault) 68.6 BUN/Creatinine Ratio 9 (6-20) Glucose Level 91mg/dL (70-99) Calcium Level 8.7mg/dL (8.5-10.1) Total Bilirubin 1.9mg/dL (0.2-1.0) Aspartate Amino Transf (AST/SGOT) 31U/L (15-37) Alanine Aminotransferase (ALT/SGPT) 27U/L (16-63) Alkaline Phosphatase 297U/L (46-116) Total Protein 7.1g/dL (6.4-8.2) Albumin 2.5g/dL (3.4-5.0) Albumin/Globulin Ratio 0.5 (1.0-1.7) Allergies: Coded Allergies: shellfish derived (Verified Allergy, Intermediate, 08/26/16) NSAIDS (Non-Steroidal Anti-Inflamma (Verified Allergy, Mild, "told not to take" for GI concerns, 09/23/13) Medications: Current Medications Medications (Trade) Dose Ordered Sig/Jarrett Route PRN Reason Start Time Stop Time Status Last Admin Dose Admin Furosemide (Lasix) 40 mg BID92 IVP 09/16/16 09:00 09/16/16 14:09 Potassium Chloride 20 meq 20 meq [id number] PO 09/16/16 08:00 09/16/16 09:48 Phytonadione/ Sodium Chloride (Vitamin K/Iv Sodium Chloride 0.9% 50ml) 51 ml @ 102 mls/hr 1X ONCE IV 09/16/16 14:00 09/16/16 14:29 DC 09/16/16 14:10 Imaging: Imaging: CXR 09/13/16 Impression: Interval worsening of bilateral airspace disease. Findings are nonspecific, but could be from ARDS, pulmonary edema, bilateral pneumonia, nonspecific inflammatory process, or pulmonary hemorrhage among other possibilities. CT angio chest IMPRESSION: 1. The lobar and smaller pulmonary arteries are not adequately opacified for evaluation of the possibility of pulmonary emboli. 2. Patchy bilateral pulmonary infiltrates have improved slightly since 2016. Pneumonia is suspected. 3. Small volume of ascites. 4. Anasarca. 5. Probable cholelithiasis. PE: GEN: NAD, obese, anasarca HEENT: Atraumatic, PERRLA LUNGS: decreased HEART: S1S2 +murm ABD: non-tender, BS+ EXTREMITY: BLE edema, hyperpigmentation NEURO/PSYCH: A & O 3 A/P: A/P: Abnormal LFTs w/ elevated INR, h/o alcohol abuse -previously - US: cholelithiasis w/ GB wall thickening, hepatic steatosis; Hepatitis panel neg, h/o alcohol abuse -INR 3.6, bili 1.9, Alk Phos 297 Heart failure, resp failure Anemia - likely chronic disease -h/o PUD (NSAID), on PPI -Hgb stable -h/o occasional rectal bleeding -previously discussed EGD and colonoscopy once heart/lung issues stable -- Recheck INR after vit K. Eventual EGD and colonoscopy. STEFANY LLANOS Sep 16, 2016 14:57
[2016-09-16 15:00] VITALS: BP 122/86
[2016-09-16 19:20] VITALS: BP 129/75
[2016-09-16 23:25] VITALS: BP 145/70
[2016-09-17 03:25] VITALS: BP 130/67
[2016-09-17 05:00] LABS: INR 3.7 (0.8-1.1); PROTHROMBIN TIME PATIENT 34.6 SEC (11.7-14.0)
[2016-09-17 07:00] VITALS: BP 111/54
[2016-09-17] MEDS: IPRATRPIUM/ALBUTEROL 0.5/2.5MG 3 ML NEBU. NEB SCH ×2 (07:21→11:55)
[2016-09-17 07:32] LABS: KAPPA LAMBDA RATIO 1.61 (0.26-1.65)
[2016-09-17] MEDS: buPROPion 100 MG TABLET PO SCH (09:10)
[2016-09-17] MEDS: MAGNESIUM OXIDE 400 MG TABLET PO SCH (09:10)
[2016-09-17] MEDS: CETIRIZINE HCL 10 MG TABLET. PO SCH (09:10)
[2016-09-17] MEDS: FERROUS SULFATE 325 MG TABLET. PO SCH (09:11)
[2016-09-17] MEDS: PANTOPRAZOLE 40 MG TABLET.DR. PO SCH (09:11)
[2016-09-17] MEDS: MULTIVITAMIN with MINERAL TABLET. PO SCH (09:11)
[2016-09-17] MEDS: POTASSIUM CHLORIDE 20 MEQ TABLET.ER. PO SCH (09:11)
[2016-09-17] MEDS: HALOPERIDOL 2 MG TABLET. PO SCH (09:11)
[2016-09-17] MEDS: NICOTINE 14MG PATCH. TD SCH (09:12)
[2016-09-17] MEDS: FUROSEMIDE 40 MG/4 ML VIAL. IVP SCH (09:12)
[2016-09-17 10:38] LABS: CALCIUM 8.7 mg/dL (8.5-10.1); CREATININE 1.3 mg/dL (0.7-1.3); GFR 74.8; POTASSIUM 3.5 mmol/L (3.5-5.1)
[2016-09-17 11:00] VITALS: BP 147/80
--- NOTE | 2016-09-17 11:03 | PDOC ---
PROGRESS NOTES Chief Complaint Chief Complaint acute hypoxic respir failure ASSESSMENT AND PLAN: 1. Acute on chronic systolic and diastolic CHF: s/p IV lasix diuresis. monitor I&O 2. Recent PNA: resolving 3. early COPD: suspected with significant tobaccoism. continue nebs, suppl O2 , nicotine patch 4. ANNA: suspected; sleep study on O/P basis 5. Hypoventilation syndrome due to massive obesity 6. EtOH abuse: W/D prevention protocol 7. 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 appreciate GI service input 8. Depression, schizophrenia 9. anemia, thrombocytopenia: chronic. cannot r/o BM d/o, albeit unlikely 10. Prophylaxis: History of Present Illness History of Present Illness feels good, no cough or SOB. ready to go home Vitals Vitals Vital Signs Date Time Temp Pulse Resp B/P Pulse Ox O2 Delivery O2 Flow Rate FiO2 09/17/16 07:22 96 Room Air 09/17/16 07:00 98.4 98 18 111/54 98.4 Physical Exam General: Alert, Oriented X3, Cooperative, No acute distress Heart: Regular rate, Normal S1, Normal S2, Other (2/6 systolic murmur ) Lungs: Wheezing Abdomen: Normal bowel sounds, Soft, Other (anasarca, abdomen firm, obese ) Extremities: No clubbing, Normal pulses, Other (significant LE edema bilaterally ) Skin: No rashes, No significant lesion Labs LABS Laboratory Tests Test 09/17/16 03:34 Prothrombin Time 34.6SEC (11.7-14.0) Prothromb Time International Ratio 3.7 (0.8-1.1) D-Dimer (Denia) 3.00ug/mlFEU (0.00-0.50) Sodium Level 137mmol/L (136-145) Potassium Level 3.5mmol/L (3.5-5.1) Chloride Level 101mmol/L (98-107) Carbon Dioxide Level 24mmol/L (21-32) Anion Gap 12 (6-14) Blood Urea Nitrogen 11mg/dL (8-26) Creatinine 1.3mg/dL (0.7-1.3) Estimated GFR (Cockcroft-Gault) 74.8 Glucose Level 99mg/dL (70-99) Calcium Level 8.7mg/dL (8.5-10.1) JEWELS CONDON MD Sep 17, 2016 11:03
[2016-09-17] MEDS ORDERED: FURO-69 PO (11:39)
--- NOTE | 2016-09-17 13:53 | PDOC ---
PULMONARY PROGRESS NOTES Subjective pt less soa Vitals Vital Signs Date Time Temp Pulse Resp B/P Pulse Ox O2 Delivery O2 Flow Rate FiO2 09/17/16 11:55 100 Room Air 09/17/16 11:00 97.9 99 20 147/80 97.9 ROS: No Nausea, No Chest Pain, No Abdominal Pain, No Increase Cough General: Alert, No acute distress Lungs: Wheezing Cardiovascular: S1, S2 Abdomen: Soft, Non-tender, Other (obese) Neuro Exam: Alert Extremities: Other (edema) Skin: Warm Labs Laboratory Tests Test 09/16/16 04:08 09/17/16 03:34 White Blood Count 8.1x10^3/uL (4.0-11.0) Red Blood Count 2.27x10^6/uL (4.30-5.70) Hemoglobin 7.5g/dL (13.0-17.5) Hematocrit 22.4% (39.0-53.0) Mean Corpuscular Volume 99fL (79-100) Mean Corpuscular Hemoglobin 33pg (25-35) Mean Corpuscular Hemoglobin Concent 33g/dL (31-37) Red Cell Distribution Width 17.7% (11.5-14.5) Platelet Count 76x10^3/uL (140-400) Neutrophils (%) (Auto) 65% (31-73) Lymphocytes (%) (Auto) 16% (24-48) Monocytes (%) (Auto) 13% (0-9) Eosinophils (%) (Auto) 5% (0-3) Basophils (%) (Auto) 1% (0-3) Neutrophils # (Auto) 5.3x10^3uL (1.8-7.7) Lymphocytes # (Auto) 1.3x10^3/uL (1.0-4.8) Monocytes # (Auto) 1.0x10^3/uL (0.0-1.1) Eosinophils # (Auto) 0.4x10^3/uL (0.0-0.7) Basophils # (Auto) 0.1x10^3/uL (0.0-0.2) Prothrombin Time 33.5SEC (11.7-14.0) 34.6SEC (11.7-14.0) Prothromb Time International Ratio 3.6 (0.8-1.1) 3.7 (0.8-1.1) Sodium Level 137mmol/L (136-145) 137mmol/L (136-145) Potassium Level 3.6mmol/L (3.5-5.1) 3.5mmol/L (3.5-5.1) Chloride Level 103mmol/L (98-107) 101mmol/L (98-107) Carbon Dioxide Level 25mmol/L (21-32) 24mmol/L (21-32) Anion Gap 9 (6-14) 12 (6-14) Blood Urea Nitrogen 12mg/dL (8-26) 11mg/dL (8-26) Creatinine 1.4mg/dL (0.7-1.3) 1.3mg/dL (0.7-1.3) Estimated GFR (Cockcroft-Gault) 68.6 74.8 BUN/Creatinine Ratio 9 (6-20) Glucose Level 91mg/dL (70-99) 99mg/dL (70-99) Calcium Level 8.7mg/dL (8.5-10.1) 8.7mg/dL (8.5-10.1) Total Bilirubin 1.9mg/dL (0.2-1.0) Aspartate Amino Transf (AST/SGOT) 31U/L (15-37) Alanine Aminotransferase (ALT/SGPT) 27U/L (16-63) Alkaline Phosphatase 297U/L (46-116) Total Protein 7.1g/dL (6.4-8.2) Albumin 2.5g/dL (3.4-5.0) Albumin/Globulin Ratio 0.5 (1.0-1.7) D-Dimer (Denia) 3.00ug/mlFEU (0.00-0.50) Laboratory Tests Test 09/17/16 03:34 Prothrombin Time 34.6SEC (11.7-14.0) Prothromb Time International Ratio 3.7 (0.8-1.1) D-Dimer (Denia) 3.00ug/mlFEU (0.00-0.50) Sodium Level 137mmol/L (136-145) Potassium Level 3.5mmol/L (3.5-5.1) Chloride Level 101mmol/L (98-107) Carbon Dioxide Level 24mmol/L (21-32) Anion Gap 12 (6-14) Blood Urea Nitrogen 11mg/dL (8-26) Creatinine 1.3mg/dL (0.7-1.3) Estimated GFR (Cockcroft-Gault) 74.8 Glucose Level 99mg/dL (70-99) Calcium Level 8.7mg/dL (8.5-10.1) Medications Active Scripts Medications Dose Route/Sig Days Date Category Lasix (Furosemide) 20 Mg Tablet 1 Tab PO DAILY 06/11/16 Rx Magnesium Oxide 400 Mg Tablet 1 Tab PO DAILY 06/11/16 Rx Wellbutrin (Bupropion Hcl) 100 Mg Tablet Unknown Dose PO BID 08/14/14 Reported Haloperidol 2 Mg Tablet Unknown Dose PO 08/14/14 Reported Prilosec (Omeprazole) 40 Mg Capsule.dr 40 Mg PO DAILY 08/14/14 Reported Exforge 5-160 Mg Tablet (Amlodipine/Valsartan) 1 Each Tablet Unknown Dose PO 08/14/14 Reported Impression . 1. [id number] cor pulmonale with ongoing weight gain and significant anasarca and lower extremity edema. 2. Abnormal CT chest with overall improving patchy infiltrates involving the left lung. compatible with edema 3. Ongoing tobaccoism and suspected underlying chronic obstructive pulmonary disease. 4. Mild pulmonary hypertension based on previous echo. 5. Suspected obstructive sleep apnea and obesity hypoventilation syndrome. 6. Underlying psychosis and schizophrenia. Plan . OK TO D/C WILL SET UP A SLEEP STUDY AND FOLLOW UP WITH ME 1. marilee velez 2. Bronchodilators. 3. Sleep study as an outpatient. 4. clinically less likely pneumonia 5. DVT prophylaxis BAUDILIO FELIZ MD Sep 17, 2016 13:53
--- NOTE | 2016-09-17 15:56 | PDOC ---
CARDIO Progress Notes Date and Time Date of Service 09/17/16 Time of Evaluation 1340 Subjective Subjective: No Chest Pain, No shortness of breath, No Palpitations, No Dizziness Comments: wanting to go home Vitals Vitals Vital Signs Date Time Temp Pulse Resp B/P Pulse Ox O2 Delivery O2 Flow Rate FiO2 09/17/16 11:55 100 Room Air 09/17/16 11:00 97.9 99 20 147/80 97.9 Weight Weight [ ] Input and Output Intake and Output Intake and Output 09/17/16 07:00 Intake Total 851 ml Output Total 800 ml Balance 51 ml Intake Oral 800 ml IV Total 51 ml Output Urine Total 800 ml # Voids 5 Laboratory Labs Laboratory Tests Test 09/17/16 03:34 Prothrombin Time 34.6SEC (11.7-14.0) Prothromb Time International Ratio 3.7 (0.8-1.1) D-Dimer (Denia) 3.00ug/mlFEU (0.00-0.50) Sodium Level 137mmol/L (136-145) Potassium Level 3.5mmol/L (3.5-5.1) Chloride Level 101mmol/L (98-107) Carbon Dioxide Level 24mmol/L (21-32) Anion Gap 12 (6-14) Blood Urea Nitrogen 11mg/dL (8-26) Creatinine 1.3mg/dL (0.7-1.3) Estimated GFR (Cockcroft-Gault) 74.8 Glucose Level 99mg/dL (70-99) Calcium Level 8.7mg/dL (8.5-10.1) Physical Exam HEENT: Neck Supple W Full Motion Chest: Symmetric LUNGS: Clear to Auscultation Heart: S1S2, RRR, murmurs (2/6 systolic murmur ) Abdomen: Other (ansarca) Extremities: No Calf Tenderness, Other (unable to appreciate degree of edema with large LE and obesity) Neurology: alert, oriented, follow commands Assessment Assessment 1. Acute and chronic diastolic heart failure: ANNA/morbid obesity and possible liver disease. improved with Lasix 2. COPD/mild to mod pulmonary HTN: pulmonary following 3. Hypertension: well controlled. TTE with normal EF and wall motion 4. Normocytic anemia with coagulopathy (INR 3.7): Hgb 7.5 liver disease? with underlying ETOHism. Hemonc following 5. CKD3: nephrology following 6. Chronic alcoholism: per PCP 7. Anxiety/depression/schizophrenia 8. Subclinical hypothyroidism 9. GI bleed? seen by GI from previous admission suggesting siddiqui endoscopy? Recommendations Continue diuresis/ supportive care. Reinforced compliance and adherence from ETOH Outpatient f/u with HemoOnc PALOMA SMITH APRN Sep 17, 2016 15:55
--- NOTE | 2016-09-17 22:25 | DS ---
DATE OF DISCHARGE: 09/17/2016 CHIEF COMPLAINT: Acute hypoxic respiratory failure. HOSPITAL COURSE: The patient is a 36-year-old morbidly obese -Greek gentleman who presented with acute on chronic respiratory failure. This was deemed secondary to fluid overload with systolic and diastolic CHF. He was aggressively diuresed with IV Lasix. He had recent PNA that had prompted admission, was slowly resolving as per chest x-ray. As an ongoing smoker, he was thought to have early COPD as well. He was therefore given nebs and a nicotine patch as well for obstructive sleep apnea for which strong suspicion was present, and he will follow up with Pulmonology for an outpatient sleep study. DISCHARGE DATE: 09/17/2016. DISCHARGE PHYSICAL EXAMINATION: Please refer to a note from same date. DISCHARGE DISPOSITION: To home. DISCHARGE CONDITION: Improved. DISCHARGE DIAGNOSES: Acute on chronic systolic and diastolic congestive heart failure, chronic obstructive pulmonary disease, obstructive sleep apnea, hypoventilation syndrome. DISCHARGE MEDICATIONS: Please refer to MAR. DISCHARGE INSTRUCTIONS: The patient will follow up with Pulmonology in 2-4 weeks for sleep study. He will see his primary care physician in 1-2 weeks. JEWELS CONDON MD DR: UR/nts JOB#: [id number] / [id number] ALBERTA Merlos MD MTDD
[2016-09-21 07:30] LABS: IMMUNOGLOBULIN A 354 mg/dL (90-386); IMMUNOGLOBULIN G 1529 mg/dL (700-1600); IMMUNOGLOBULIN M 63 mg/dL (20-172)
== END 2016-09-17 10:50 | disposition home or self-care (01) | DRG 291 ==
LOC: ER 08:40 → 4 NORTH 11:30
PROVIDERS: ADMIT Internal Medicine Hematology & Oncology; ATTEND Internal Medicine Hematology & Oncology
DX: I50.43 Acute on chronic combined systolic (congestive) and diastolic (congestive) heart failure (principal); J96.21 Acute and chronic respiratory failure with hypoxia; I13.0 Hypertensive heart and chronic kidney disease with heart failure and stage 1 through stage 4 chronic kidney disease, or unspecified chronic kidney disease; E66.2 Morbid (severe) obesity with alveolar hypoventilation; Z68.43 Body mass index [BMI] 50.0-59.9, adult; D69.6 Thrombocytopenia, unspecified; E03.9 Hypothyroidism, unspecified; E78.00 Pure hypercholesterolemia, unspecified; E78.5 Hyperlipidemia, unspecified; F10.20 Alcohol dependence, uncomplicated; F17.210 Nicotine dependence, cigarettes, uncomplicated; F20.9 Schizophrenia, unspecified; F32.9 Major depressive disorder, single episode, unspecified; F41.9 Anxiety disorder, unspecified; I27.2 Other secondary pulmonary hypertension; I27.81 Cor pulmonale (chronic); F12.90 Cannabis use, unspecified, uncomplicated; D64.9 Anemia, unspecified; K21.9 Gastro-esophageal reflux disease without esophagitis; K27.9 Peptic ulcer, site unspecified, unspecified as acute or chronic, without hemorrhage or perforation; K72.90 Hepatic failure, unspecified without coma; K76.0 Fatty (change of) liver, not elsewhere classified; N18.3 Chronic kidney disease, stage 3 (moderate); Z82.49 Family history of ischemic heart disease and other diseases of the circulatory system; Z83.3 Family history of diabetes mellitus; Z82.5 Family history of asthma and other chronic lower respiratory diseases; Z87.01 Personal history of pneumonia (recurrent); Z87.11 Personal history of peptic ulcer disease; J44.9 Chronic obstructive pulmonary disease, unspecified
CPT/HCPCS: 36415; 71020; 71275; 80048; 80053; 80076; 81001; 82553; 83520; 83735; 83880; 84443; 84484; 85027; 85379; 85610; 86334; 93005; 94250; 94620; 94640; 94760; 96374; J1650; J1940; J3430; J7620; 99285-25

== ENCOUNTER 2016-10-06 13:25 | Inpatient (IN) | payer MEDICARE, MEDICAID ==
[~2016-10-06] VITALS: Ht 177.8 cm; Wt 198.8 kg
--- NOTE | 2016-10-06 13:55 | ED.ADGEN ---
Past Medical History Past Medical History: CHF, Depression, GERD, High Cholesterol, Hypertension, Schizophrenia, Other Additional Past Medical Histor: Psychosis Past Surgical History: No Surgical History Alcohol Use: Heavy Additional Information: drinks a pint of Gin daily and a 6 pack of beer Drug Use: Marijuana Adult General Chief Complaint Chief Complaint: SHORTNESS OF BREATH HPI HPI Patient is a 36 year old man, history of morbid obesity, CHF, hypertension, hyperlipidemia, fatty liver, schizophrenia, who presents to the emergency department with complaint of increasing swelling in his extremities and abdomen , and increasing shortness of breath. Patient states this and going on for "a while", which may be up to. Weeks, worsening over the past several days. He states he is now extremely short of breath with any activity. He denies any travel or surgery, and history of DVT or PE. Denies any chest pain, states he has an occasional cough productive of clear sputum, denies any GI or complaints. He was treated 1 month ago for pneumonia, denies any fevers or productive cough consistent with her previous admission. No injuries. States previous symptoms occurred when he was diagnosed with congestive heart failure, at that time he did require "Lasix through an IV". Patient states he does take oral Lasix at home, he believes that he takes 40 mg daily. Patient does not have a list of medications with him today. He sees Dr. Storey of cardiology. Patient also states that he drinks a pint of gin and a sixpack of beer daily, states that he has a history of fatty liver, denies any other liver problems, states that he has previously needed to have his "kidneys checked". Review of Systems Review of Systems Constitutional: Denies fever or chills. [] Eyes: Denies change in visual acuity. [] HENT: Denies nasal congestion or sore throat. [] Respiratory: Worsening shortness of breath, cough with clear sputum. Cardiovascular: Denies chest pain, edema of the bilateral lower extremities. GI: Denies abdominal pain, nausea, vomiting, bloody stools or diarrhea. Anasarca. [] : Denies dysuria. [] Musculoskeletal: Denies back pain or joint pain. [] Integument: Denies rash. [] Neurologic: Denies headache, focal weakness or sensory changes. [] Endocrine: Denies polyuria or polydipsia. [] Lymphatic: Denies swollen glands. [] Psychiatric: Denies depression or anxiety. [] Allergies Allergies Allergies Coded Allergies Type Severity Reaction Last Updated Verified shellfish derived Allergy Intermediate 08/26/16 Yes NSAIDS (Non-Steroidal Anti-Inflamma Allergy Mild "told not to take" for GI concerns 09/23/13 Yes Physical Exam Physical Exam Constitutional: Well developed, morbidly obese, no acute distress, non-toxic appearance. [] HENT: Normocephalic, atraumatic, bilateral external ears normal, oropharynx moist, no oral exudates, nose normal. [] Eyes: PERRLA, EOMI, conjunctiva normal, no discharge. [] Neck: Normal range of motion, no tenderness, supple, no stridor. [] Cardiovascular:Heart rate regular rhythm, S1, S2, S3, no rubs. Lungs & Thorax: Diminished breath of the bases bilaterally, examination limited second to body habitus. [] Abdomen: Bowel sounds normal, soft, obese, anasarca, no tenderness, no masses, no pulsatile masses. [] Skin: Warm, dry, no erythema, no rash. [] Back: No tenderness, no CVA tenderness. [] Extremities: No tenderness, no cyanosis, no clubbing, ROM intact, 3+ pitting edema bilaterally. Neurologic: Alert and oriented X 3, normal motor function, normal sensory function, no focal deficits noted. [] Psychologic: Affect normal, judgement normal, mood normal. [] Current Patient Data Vital Signs Vital Signs Date Time Temp Pulse Resp B/P (MAP) Pulse Ox O2 Delivery O2 Flow Rate FiO2 10/06/16 15:00 92 22 107/54 (71) 97 Room Air 10/06/16 13:39 97.8 97.8 Lab Values Laboratory Tests Test 10/06/16 13:40 10/06/16 14:22 White Blood Count 11.6 x10^3/uL (4.0-11.0) H Red Blood Count 2.58 x10^6/uL (4.30-5.70) L Hemoglobin 7.9 g/dL (13.0-17.5) L Hematocrit 24.3 % (39.0-53.0) L Mean Corpuscular Volume 94 fL (79-100) Mean Corpuscular Hemoglobin 31 pg (25-35) Mean Corpuscular Hemoglobin Concent 33 g/dL (31-37) Red Cell Distribution Width 16.8 % (11.5-14.5) H Platelet Count 171 x10^3/uL (140-400) # Neutrophils (%) (Auto) 58 % (31-73) Lymphocytes (%) (Auto) 17 % (24-48) L Monocytes (%) (Auto) 22 % (0-9) H Eosinophils (%) (Auto) 2 % (0-3) Basophils (%) (Auto) 1 % (0-3) Neutrophils # (Auto) 6.8 x10^3uL (1.8-7.7) Lymphocytes # (Auto) 2.0 x10^3/uL (1.0-4.8) Monocytes # (Auto) 2.5 x10^3/uL (0.0-1.1) H Eosinophils # (Auto) 0.2 x10^3/uL (0.0-0.7) Basophils # (Auto) 0.2 x10^3/uL (0.0-0.2) Segmented Neutrophils % 58 % (35-66) Band Neutrophils % 1 % (0-9) Lymphocytes % 20 % (24-48) L Monocytes % 14 % (0-10) H Eosinophils % 3 % (0-5) Basophils % 4 % (0-3) H Platelet Estimate Adequate (ADEQUATE) Polychromasia Slight Sodium Level 129 mmol/L (136-145) L Potassium Level 4.9 mmol/L (3.5-5.1) Chloride Level 96 mmol/L (98-107) L Carbon Dioxide Level 18 mmol/L (21-32) L Anion Gap 15 (6-14) H Blood Urea Nitrogen 23 mg/dL (8-26) Creatinine 2.1 mg/dL (0.7-1.3) H Estimated GFR (Cockcroft-Gault) 43.0 BUN/Creatinine Ratio 11 (6-20) Glucose Level 95 mg/dL (70-99) Calcium Level 8.6 mg/dL (8.5-10.1) Total Bilirubin 1.5 mg/dL (0.2-1.0) H Aspartate Amino Transferase (AST) 43 U/L (15-37) H Alanine Aminotransferase (ALT) 20 U/L (16-63) Alkaline Phosphatase 384 U/L (46-116) H Troponin I Quantitative < 0.017 ng/mL (0.000-0.055) IG-Pyn-B-Type Natriuretic Peptide 2348 pg/mL (0-124) H Total Protein 7.5 g/dL (6.4-8.2) Albumin 2.3 g/dL (3.4-5.0) L Albumin/Globulin Ratio 0.4 (1.0-1.7) L Urine Collection Type Unknown Urine Color Dk yellow Urine Clarity Clear Urine pH 5.0 Urine Specific [place] 1.015 Urine Protein 30 mg/dL (NEG-TRACE) Urine Glucose (UA) Negative mg/dL (NEG) Urine Ketones (Stick) Trace mg/dL (NEG) Urine Blood Small (NEG) Urine Nitrite Negative (NEG) Urine Bilirubin Small (NEG) Urine Urobilinogen Dipstick 1.0 mg/dL (0.2 mg/dL) Urine Leukocyte Esterase Small (NEG) Urine RBC 1-2 /HPF (0-2) Urine WBC 1-4 /HPF (0-4) Urine Squamous Epithelial Cells Few /LPF Urine Bacteria Few /HPF (0-FEW) Urine Hyaline Casts Many /HPF Urine Mucus Mod /LPF Urine Sperm Present /HPF Laboratory Tests 10/06/16 13:40 Laboratory Tests 10/06/16 13:40 EKG EKG EC: Sinus rhythm, heart rate 99 beats minute, QTC of 452, MT 166, cures of 86, no ST elevations or depressions, contour normality is noted in the septal leads, abnormal ECG, does not meet STEMI criteria. As interpreted by me. [] Radiology/Procedures Radiology/Procedures [][facility] [address] [place] [address] IMAGING REPORT Signed PATIENT: TEO BIGGS ACCOUNT: [id number] : 1980 LOCATION: ER AGE: 36 SEX: M EXAM STATUS: PRE ER ORD. PHYSICIAN: AMY KUMAR DO REASON: SOB PROCEDURE: PORTABLE CHEST 1V Portable chest, 10/06/2016: History: Shortness of breath Comparison is made to a study from 09/13/2016. The patient positioning is lordotic. The heart is mildly enlarged. The pulmonary vascularity is at the upper limits of normal. There is mild retrocardiac atelectasis/infiltrate in the left base. No pleural fluid is seen. IMPRESSION: 1. Mild cardiomegaly with borderline vascular congestion. 2. Mild left basilar atelectasis/infiltrate. DICTATED and SIGNED BY: STEVEN GONZALEZ MD DATE: 10/06/16 9447 CC: ABIGAIL STERLING; AMY KUMAR DO ~ Course & Med Decision Making Course & Med Decision Making Pertinent Labs and Imaging studies reviewed. (See chart for details) Patient's oxygen saturation is 100% at rest in the ED, respiratory rate is 18 and unlabored, blood pressure is 120s to 130s over 60s and 70s. Patient's history and examination are concerning for recurrent congestive heart failure. Chest x-ray reveals cardiomegaly with evidence of cephalization and pulmonary edema. Patient's proBNP is greater than 2300. Patient noted to have mild hyponatremia with a sodium of 129 which is a change from his prior 137. Creatinine is 2.0, elevated from prior. I did discuss these findings with patient, he is agreeable for [facility] or the hospital. He states that he believes he uses 40-80 of Lasix daily, patient was given IV dose of Lasix in the emergency department. He is agreeable for admission to the hospital for assessment of his decompensated congestive heart failure. Patient previously has been seen by the hospital's cardiology service. I did speak with Dr. Robins of internal medicine, patient was accepted his service as a full admission to the cardiac telemetry floor, consultation placed for Dr. Shipley of cardiology. Patient remained stable on the monitor in sinus rhythm, awaiting transport to the floor. Bridge orders entered per discussion. Dragon Disclaimer Dragon Disclaimer This electronic medical record was generated, in whole or in part, using a voice recognition dictation system. Departure Impression: Primary Impression: Congestive heart failure Additional Impressions: Anasarca Alcohol abuse Disposition: ADMITTED INPATIENT Admitting Physician: Jazzy Robins Condition: IMPROVED Problem Qualifiers AMY KUMAR DO October 06, 2016 13:55
--- NOTE | 2016-10-06 14:05 | EKG ---
[facility] [address] [place] [address] Test Date: 2016-10-06 Test Time: 13:33:38 Pat Name: TEO BIGGS Department: Room: Gender: Finish Off Operator: Dada : 1980 Requested By: AMY KUMAR Order Number: [id number] Reading MD: Manuel Arnold Measurements Intervals [place] Rate: 99 P: 54 HI: 166 QRS: 44 QRSD: 86 T: 64 QT: 348 QTc: 452 Interpretive Statements SINUS RHYTHM Electronically Signed On 10-11-2016 14:01:03 CDT by Manuel Arnold
[2016-10-06 14:06] LABS: BASO # 0.2 x10^3/uL (0.0-0.2); BASO % 1 % (0-3); EOS % 2 % (0-3); HEMATOCRIT 24.3 % (39.0-53.0); HEMOGLOBIN 7.9 g/dL (13.0-17.5); LYMPH % 17 % (24-48); MEAN CORPUSCULAR HEMOGLOBIN 31 pg (25-35); MEAN CORPUSCULAR HGB CONC 33 g/dL (31-37); MEAN CORPUSCULAR VOLUME 94 fL (79-100); MONO % 22 % (0-9); NEUT % 58 % (31-73); PLATELET COUNT 171 x10^3/uL (140-400); RED BLOOD COUNT 2.58 x10^6/uL (4.30-5.70); RED CELL DISTRIBUTION WIDTH 16.8 % (11.5-14.5); WHITE BLOOD COUNT 11.6 x10^3/uL (4.0-11.0)
--- NOTE | 2016-10-06 14:09 | RAD ---
Portable chest, 10/06/2016: History: Shortness of breath Comparison is made to a study from 09/13/2016. The patient positioning is lordotic. The heart is mildly enlarged. The pulmonary vascularity is at the upper limits of normal. There is mild retrocardiac atelectasis/infiltrate in the left base. No pleural fluid is seen. IMPRESSION: 1. Mild cardiomegaly with borderline vascular congestion. 2. Mild left basilar atelectasis/infiltrate.
[2016-10-06 14:10] LABS: CALCIUM 8.6 mg/dL (8.5-10.1); CREATININE 2.1 mg/dL (0.7-1.3); POTASSIUM 4.9 mmol/L (3.5-5.1)
[2016-10-06 14:15] LABS: ALBUMIN 2.3 g/dL (3.4-5.0); ALBUMIN/GLOBULIN RATIO 0.4 (1.0-1.7); TOTAL BILIRUBIN 1.5 mg/dL (0.2-1.0); TOTAL PROTEIN 7.5 g/dL (6.4-8.2)
[2016-10-06 14:31] LABS: BILIRUBIN,URINE SMALL (NEG); GLUCOSE,URINE NEGATIVE (NEG); NITRITE,URINE NEGATIVE (NEG); PROTEIN,URINE 30 mg/dL (NEG-TRACE)
[2016-10-06 14:44] LABS: BACTERIA,URINE FEW /HPF (0-FEW); SPERM,URINE PRESENT /HPF; SQUAMOUS EPITHELIAL CELL,UR FEW /LPF
[2016-10-06 15:00] LABS: % BASOS 4 % (0-3); % EOS 3 % (0-5)
[2016-10-06 15:02] LABS: PLT ESTIMATE ADEQUATE (ADEQUATE); POLYCHROMASIA SLIGHT
[2016-10-06] MEDS ORDERED: FUROSEMIDE 100 MG/10 ML VIAL. IVP ONE (15:30)
[2016-10-06] MEDS ORDERED: ONDANSETRON PF 4 MG/2 ML VIAL. IV PRN (16:45)
[2016-10-06] MEDS ORDERED: MORPHINE SULFATE 4 MG/ML DISP.SYRIN. IV PRN (16:45)
[2016-10-06] MEDS ORDERED: NITROGLYCERIN SUBLINGUAL 0.4 MG BOTTLE OF 25. SL PRN (16:45)
--- NOTE | 2016-10-06 16:52 | ACF ---
Admission Forms Criteria HEART FAILURE: COMMON COMPLICATIONS Clinical Indications for Inpatient Care (Place 'X' for any and all applicable criteria): Ongoing inpatient care may be indicated for heart failure with ANY ONE of the following (1)(2)(3)(4)(5): [ ]I. Ongoing need for care for primary condition requiring frequent therapy adjustments because of changes in cardiac function (eg, drug dosage changes for drugs that are renally metabolized) [ ]II. New-onset heart failure [ ]III. Heart failure with decreased urine output not responsive to attempts to optimize volume status [ ]IV. Acute cardiac ischemia causing or associated with failure [X]V. Complications of heart failure, including ANY ONE of the following: [ ]a) Pericardial effusion [ ]b) Symptomatic pleural effusion [ ]c) O2 saturation <90% or PO2 < 60 mm Hg (8.0 kPa) on room air or require baseline supplemental O2 [ ]d) Tachypnea [X]e) Dyspnea [ ]f) Syncope [ ]g) Change in mental status [ ]h) Acute renal insufficiency that is severe (reduction of more than 50% in estimated glomerular filtration rate from baseline) or progressive reduction of more than 25% in estimated glomerular filtration rate from baseline, with creatinine continuing to rise) [ ]i) Hemodynamic instability [ ]j) Anasarca [ ]k) Clinically significant metabolic abnormalities due to heart failure (eg, new-onset metabolic acidosis) Extended stay beyond goal length of stay for primary condition may be needed until ALL of the following are present(1)(3): [ ]a) Stable and effective diuretic regimen established (or patient on stable dialysis regimen if in chronic renal failure) [ ]b) Breathing comfortably at rest [ ]c) Saturation of arterial oxygen greater than 90% or at acceptable baseline [ ]d) Pulmonary edema absent or improved [ ]e) Hemodynamic stability [ ]f) Volume status acceptable on oral medication [ ]g) Peripheral or sacral edema absent or improved [ ]h) Renal function stable and manageable at a lower level of care [ ]i) Complications (eg, pleural effusion) resolved or manageable at a lower level of care [ ]j) Patient or caregiver has received written discharge instructions or educational material addressing activity level, diet, discharge medications, follow-up appointment, weight monitoring, and what to do if symptoms worsen The original [employer] [email or web address] content created by [employer] has been revised. The portions of the content which have been revised are identified through the use of italic text or in bold, and [facility] has neither reviewed nor approved the modified material.All other unmodified content is copyright [facility]. Please see references footnoted in the original [facility] edition 2016 Admission Criteria Met?: Yes LETITIA STEPHENSON October 06, 2016 16:52
[2016-10-06] MEDS ORDERED: MULTIVIT INFUSN,ADULT 4,VIT K 10 ML, THIAMINE 100 MG, FOLIC ACID 1 MG in IV NORMAL SALI... IV SCH (17:00)
[2016-10-06] MEDS: chlordiazePOXIDE HCL 25 MG CAPSULE PO SCH ×2 (18:27→23:28)
[2016-10-06 18:36] VITALS: BP 122/50
[2016-10-06] MEDS ORDERED: PRAV20TA2 PO (18:50)
[2016-10-06 19:36] VITALS: BP 112/60
[2016-10-06] MEDS: ATORVASTATIN CALCIUM 10 MG TABLET. PO SCH (21:29)
[2016-10-06] MEDS: buPROPion 100 MG TABLET PO SCH (21:29)
--- NOTE | 2016-10-06 21:40 | PDOC1 ---
History and Physical Date of Admission Date of Admission DATE: 10/06/16 TIME: 21:34 Identification/Chief Complaint Chief Complaint LE pain, and swelling Problems: Source Source: Chart review, Patient History of Present Illness History of Present Illness Patient is a 36 year old man, who presents to the emergency department with complaint of increasing swelling in his extremities and abdomen, and increasing shortness of breath. Patient states this and going on for "a while", which may be up to. Weeks, worsening over the past several days. He states he is now extremely short of breath with any activity. He denies any travel or surgery, and history of DVT or PE. Denies any chest pain, states he has an occasional cough productive of clear sputum, denies any GI or complaints. He was treated 1 month ago for pneumonia, denies any fevers or productive cough consistent with her previous admission. No injuries. States previous symptoms occurred when he was diagnosed with congestive heart failure, at that time he did require "Lasix through an IV". Patient states he does take oral Lasix at home, he believes that he takes 40 mg daily. Patient does not have a list of medications with him today. He sees Dr. Storey of cardiology. Patient also states that he drinks a pint of gin and a sixpack of beer daily, states that he has a history of fatty liver, denies any other liver problems, states that he has previously needed to have his "kidneys checked". Past Medical History Past Medical History history of morbid obesity, CHF, hypertension, hyperlipidemia, fatty liver, schizophrenia, tobaccoism, EtOH abuse Cardiovascular: HTN, Hyperlipidemia Pulmonary: No pertinent hx GI: GERD, Peptic Ulcer disease Heme/Onc: No pertinent hx Hepatobiliary: Other Psych: Addictions, Depression, Schizophrenia Musculoskeletal: low back pain, Other Rheumatologic: No pertinent hx Infectious disease: No pertinent hx Renal/: No pertinent hx Endocrine: No pertinent hx Past Surgical History Past Surgical History: No pertinent history Family History Family History: Heart Disease, Hypertension, Migranes Social History Smoke: 1 pack per day ALCOHOL: heavy Drugs: Marijuana Current Problem List Problem List Problems Medical Problems: (1) Alcohol abuse Status: Acute (2) Anasarca Status: Acute (3) Congestive heart failure Status: Acute Problems: Current Medications Current Medications Current Medications Furosemide (Lasix) 80 mg 1X ONCE IVP Last administered on 10/06/16t 15:30; Start 10/06/16 at 15:30; Stop 10/06/16 at 15:31; Status DC Ondansetron HCl (Zofran) 4 mg PRN Q8HRS PRN IV NAUSEA/VOMITING; Start 10/06/16 at 16:45; Stop 10/07/16 at 16:44 Morphine Sulfate 4 mg PRN Q2HR PRN IV PAIN; Start 10/06/16 at 16:45; Stop 10/07 at 16:44 Nitroglycerin (Nitrostat) 0.4 mg PRN Q5MIN PRN SL CHEST PAIN; Start 10/06/16 at 16:45; Stop 10/07/16 at 16:44 Multivitamins 10 ml/Thiamine HCl 100 mg/Folic Acid 1 mg/Sodium Chloride 1,011.2 ml @ 100 mls/ hr DAILY IV Last administered on 10/06/16 18:27; Start at 17:00; Stop 10/12/16 at 16:59 Chlordiazepoxide (Librium) 25 mg Q6HRS PO Last administered on 10/06/16 18:27 ; Start 10/06/16 at 17:00; Stop 10/08/16 at 00:01 Nicotine (Nicoderm Cq 21mg) 1 patch DAILY TD ; Start 10/07/16 at 09:00 Bupropion HCl (Wellbutrin) 100 mg BID PO Last administered on 10/06/16 21:29; Start 10/06/16 at 21:00 Furosemide (Lasix) 20 mg DAILY PO ; Start 10/07/16 at 09:00 Haloperidol (Haldol) 5 mg DAILY PO ; Start 10/07/16 at 09:00 Magnesium Oxide (Magnesium Oxide) 400 mg DAILY PO ; Start 10/07/16 at 09:00 Pantoprazole Sodium (Protonix) 40 mg DAILYAC PO ; Start 10/07/16 at 07:30 Atorvastatin Calcium (Lipitor) 5 mg QHS PO Last administered on 10/06/16 21:29 ; Start 10/06/16 at 21:00 Amlodipine Besylate (Norvasc) 5 mg DAILY PO ; Start 10/07/16 at 09:00 Lorazepam (Ativan) 2 mg PRN Q1HR PRN IV For CIWA 8-14; Start 10/06/16 at 21:30 Lorazepam (Ativan) 4 mg PRN Q1HR PRN IV For CIWA 15 or greater; Start 10/06/16 at 21:30 Active Scripts Active Lasix (Furosemide) 20 Mg Tablet 1 Tab PO DAILY Magnesium Oxide 400 Mg Tablet 1 Tab PO DAILY Reported Pravastatin Sodium 20 Mg Tablet 20 Mg PO DAILY Wellbutrin (Bupropion Hcl) 100 Mg Tablet Unknown Dose PO BID Haloperidol 2 Mg Tablet 5 Mg PO DAILY Prilosec (Omeprazole) 40 Mg Capsule.dr 40 Mg PO DAILY Exforge 5-160 Mg Tablet (Amlodipine/Valsartan) 1 Each Tablet Unknown Dose PO Allergies Allergies: Coded Allergies: shellfish derived (Verified Allergy, Intermediate, 08/26/16) NSAIDS (Non-Steroidal Anti-Inflamma (Verified Allergy, Mild, "told not to take" for GI concerns, 09/23/13) ROS General: No: Chills, Night Sweats, Fatigue, Malaise, Appetite, Other PSYCHOLOGICAL ROS: No: Anxiety, Behavioral Disorder, Concentration difficultie , Decreased libido, Depression, Disorientation, Hallucinations, Hostility, Irritablity, Memory difficulties, Mood Swings, Obsessive thoughts, Physical abuse, Sexual abuse, Sleep disturbances, Suicidal ideation, Other Eyes: No Blurry vision, No Decreased vision, No Double vision, No Dry eyes, No Excessive tearing, No Eye Pain, No Itchy Eyes, No Loss of vision, No Photophobia , No Scotomata, No Uses contacts, No Uses glasses, No Other HEENT: No: Heacaches, Visual Changes, Hearing change, Nasal congestion, Nasal discharge, Oral lesions, Sinus pain, Sore Throat, Epistaxis, Sneezing, Snoring, Tinnitus, Vertigo, Vocal changes, Other Respiratory: No: Cough, Hemoptysis, Orthopnea, Pleuritic Pain, Shortness of breath, SOB with excertion, Sputum Changes, Stridor, Tachypnea, Wheezing, Other Cardiovascular: No Chest Pain, No Palpitations, No Orthopnea, No Paroxysmal Noc. Dyspnea, No Edema, No Lt Headedness, No Other Gastrointestinal: No Nausea, No Vomiting, No Abdominal Pain, No Diarrhea, No Constipation, No Melena, No Hematochezia, No Other Genitourinary: No Dysuria, No Frequency, No Incontinence, No Hematuria, No Retention, No Discharge, No Urgency, No Pain, No Flank Pain, No Other, No , No , No , No , No , No , No Musculoskeletal: No Gait Disturbance, No Joint Pain, No Joint Stiffness, No Joint Swelling, No Muscle Pain, No Muscular Weakness, No Pain In:, No Swelling In:, No Other Neurological: No Behavorial Changes, No Bowel/Bladder ControlChng, No Confusion , No Dizziness, No Gait Disturbance, No Headaches, No Impaired Coord/balance, No Memory Loss, No Numbness/Tingling, No Seizures, No Speech Problems, No Tremors, No Visual Changes, No Weakness, No Other Skin: No Dry Skin, No Eczema, No Hair Changes, No Lumps, No Mole Changes, No Mottling, No Nail Changes, No Pruritus, No Rash, No Skin Lesion Changes, No Other, No Acne Physical Exam General: Alert, Oriented X3, No acute distress HEENT: Atraumatic, PERRLA, EOMI, Mucous membr. moist/pink Lungs: Clear to auscultation, Normal air movement Heart: S1S2, no murmurs Abdomen: Normal bowel sounds (very obese, not tender, edema to abd) Extremities: No clubbing, Other (3+ edema and anasarca, chronic LE sclerosis from prior edema) Skin: No rashes, No breakdown, No significant lesion Neuro: Normal gait, Normal speech, Sensation intact Psych/Mental Status: Mental status NL, Mood NL Vitals Vitals Vital Signs Date Time Temp Pulse Resp B/P (MAP) Pulse Ox O2 Delivery O2 Flow Rate FiO2 10/06/16 19:36 98.8 95 26 112/60 (77) 96 Room Air 98.8 Labs Labs Laboratory Tests Test 10/06/16 13:40 10/06/16 14:22 10/06/16 19:00 White Blood Count 11.6 x10^3/uL (4.0-11.0) Red Blood Count 2.58 x10^6/uL (4.30-5.70) Hemoglobin 7.9 g/dL (13.0-17.5) Hematocrit 24.3 % (39.0-53.0) Mean Corpuscular Volume 94 fL (79-100) Mean Corpuscular Hemoglobin 31 pg (25-35) Mean Corpuscular Hemoglobin Concent 33 g/dL (31-37) Red Cell Distribution Width 16.8 % (11.5-14.5) Platelet Count 171 x10^3/uL (140-400) Neutrophils (%) (Auto) 58 % (31-73) Lymphocytes (%) (Auto) 17 % (24-48) Monocytes (%) (Auto) 22 % (0-9) Eosinophils (%) (Auto) 2 % (0-3) Basophils (%) (Auto) 1 % (0-3) Neutrophils # (Auto) 6.8 x10^3uL (1.8-7.7) Lymphocytes # (Auto) 2.0 x10^3/uL (1.0-4.8) Monocytes # (Auto) 2.5 x10^3/uL (0.0-1.1) Eosinophils # (Auto) 0.2 x10^3/uL (0.0-0.7) Basophils # (Auto) 0.2 x10^3/uL (0.0-0.2) Segmented Neutrophils % 58 % (35-66) Band Neutrophils % 1 % (0-9) Lymphocytes % 20 % (24-48) Monocytes % 14 % (0-10) Eosinophils % 3 % (0-5) Basophils % 4 % (0-3) Platelet Estimate Adequate (ADEQUATE) Polychromasia Slight Sodium Level 129 mmol/L (136-145) Potassium Level 4.9 mmol/L (3.5-5.1) Chloride Level 96 mmol/L (98-107) Carbon Dioxide Level 18 mmol/L (21-32) Anion Gap 15 (6-14) Blood Urea Nitrogen 23 mg/dL (8-26) Creatinine 2.1 mg/dL (0.7-1.3) Estimated GFR (Cockcroft-Gault) 43.0 BUN/Creatinine Ratio 11 (6-20) Glucose Level 95 mg/dL (70-99) Calcium Level 8.6 mg/dL (8.5-10.1) Total Bilirubin 1.5 mg/dL (0.2-1.0) Aspartate Amino Transf (AST/SGOT) 43 U/L (15-37) Alanine Aminotransferase (ALT/SGPT) 20 U/L (16-63) Alkaline Phosphatase 384 U/L (46-116) Troponin I Quantitative < 0.017 ng/mL (0.000-0.055) < 0.017 ng/mL (0.000-0.055) UV-Yhv-M-Type Natriuretic Peptide 2348 pg/mL (0-124) Total Protein 7.5 g/dL (6.4-8.2) Albumin 2.3 g/dL (3.4-5.0) Albumin/Globulin Ratio 0.4 (1.0-1.7) Urine Collection Type Unknown Urine Color Dk yellow Urine Clarity Clear Urine pH 5.0 Urine Specific [place] 1.015 Urine Protein 30 mg/dL (NEG-TRACE) Urine Glucose (UA) Negative mg/dL (NEG) Urine Ketones (Stick) Trace mg/dL (NEG) Urine Blood Small (NEG) Urine Nitrite Negative (NEG) Urine Bilirubin Small (NEG) Urine Urobilinogen Dipstick 1.0 mg/dL (0.2 mg/dL) Urine Leukocyte Esterase Small (NEG) Urine RBC 1-2 /HPF (0-2) Urine WBC 1-4 /HPF (0-4) Urine Squamous Epithelial Cells Few /LPF Urine Bacteria Few /HPF (0-FEW) Urine Hyaline Casts Many /HPF Urine Mucus Mod /LPF Urine Sperm Present /HPF Laboratory Tests Test 10/06/16 13:40 10/06/16 14:22 10/06/16 19:00 White Blood Count 11.6 x10^3/uL (4.0-11.0) Red Blood Count 2.58 x10^6/uL (4.30-5.70) Hemoglobin 7.9 g/dL (13.0-17.5) Hematocrit 24.3 % (39.0-53.0) Mean Corpuscular Volume 94 fL (79-100) Mean Corpuscular Hemoglobin 31 pg (25-35) Mean Corpuscular Hemoglobin Concent 33 g/dL (31-37) Red Cell Distribution Width 16.8 % (11.5-14.5) Platelet Count 171 x10^3/uL (140-400) Neutrophils (%) (Auto) 58 % (31-73) Lymphocytes (%) (Auto) 17 % (24-48) Monocytes (%) (Auto) 22 % (0-9) Eosinophils (%) (Auto) 2 % (0-3) Basophils (%) (Auto) 1 % (0-3) Neutrophils # (Auto) 6.8 x10^3uL (1.8-7.7) Lymphocytes # (Auto) 2.0 x10^3/uL (1.0-4.8) Monocytes # (Auto) 2.5 x10^3/uL (0.0-1.1) Eosinophils # (Auto) 0.2 x10^3/uL (0.0-0.7) Basophils # (Auto) 0.2 x10^3/uL (0.0-0.2) Segmented Neutrophils % 58 % (35-66) Band Neutrophils % 1 % (0-9) Lymphocytes % 20 % (24-48) Monocytes % 14 % (0-10) Eosinophils % 3 % (0-5) Basophils % 4 % (0-3) Platelet Estimate Adequate (ADEQUATE) Polychromasia Slight Sodium Level 129 mmol/L (136-145) Potassium Level 4.9 mmol/L (3.5-5.1) Chloride Level 96 mmol/L (98-107) Carbon Dioxide Level 18 mmol/L (21-32) Anion Gap 15 (6-14) Blood Urea Nitrogen 23 mg/dL (8-26) Creatinine 2.1 mg/dL (0.7-1.3) Estimated GFR (Cockcroft-Gault) 43.0 BUN/Creatinine Ratio 11 (6-20) Glucose Level 95 mg/dL (70-99) Calcium Level 8.6 mg/dL (8.5-10.1) Total Bilirubin 1.5 mg/dL (0.2-1.0) Aspartate Amino Transf (AST/SGOT) 43 U/L (15-37) Alanine Aminotransferase (ALT/SGPT) 20 U/L (16-63) Alkaline Phosphatase 384 U/L (46-116) Troponin I Quantitative < 0.017 ng/mL (0.000-0.055) < 0.017 ng/mL (0.000-0.055) OB-Uqn-Q-Type Natriuretic Peptide 2348 pg/mL (0-124) Total Protein 7.5 g/dL (6.4-8.2) Albumin 2.3 g/dL (3.4-5.0) Albumin/Globulin Ratio 0.4 (1.0-1.7) Urine Collection Type Unknown Urine Color Dk yellow Urine Clarity Clear Urine pH 5.0 Urine Specific [place] 1.015 Urine Protein 30 mg/dL (NEG-TRACE) Urine Glucose (UA) Negative mg/dL (NEG) Urine Ketones (Stick) Trace mg/dL (NEG) Urine Blood Small (NEG) Urine Nitrite Negative (NEG) Urine Bilirubin Small (NEG) Urine Urobilinogen Dipstick 1.0 mg/dL (0.2 mg/dL) Urine Leukocyte Esterase Small (NEG) Urine RBC 1-2 /HPF (0-2) Urine WBC 1-4 /HPF (0-4) Urine Squamous Epithelial Cells Few /LPF Urine Bacteria Few /HPF (0-FEW) Urine Hyaline Casts Many /HPF Urine Mucus Mod /LPF Urine Sperm Present /HPF VTE Prophylaxis Ordered VTE Prophylaxis Devices: No VTE Pharmacological Prophylaxi: Yes Assessment/Plan Assessment/Plan LE edema and anasarca. CHF exacerbation acute on chronic diastolic failure, Lasix 80 in ER, banana bag ordered, will stop, fluid restrict, PO thiamine and folate morbid obesity, BMI 61 hypertension, hyperlipidemia, fatty liver, schizophrenia, EtOH abuse and tobacco abuse anemia of CKD, consutl renal , acute vasomotor on CKD 3 noncompliance, I asked him to behavior modify on two previous admissions admit RESHMA FRANKEL MD October 06, 2016 21:40
[2016-10-06 21:41] LABS: BARBITURATES NEG (NEG); BENZODIAZEPINES NEG (NEG); CANNABINOIDS NEG (NEG); COCAINE NEG (NEG); METHADONE NEG (NEG); OPIATES NEG (NEG); PHENCYCLIDINE NEG (NEG)
[2016-10-06] MEDS: THIAMINE 100 MG TABLET. PO SCH (22:11)
[2016-10-06 22:12] VITALS: BP 118/56
[2016-10-07 01:18] LABS: BASO # 0.1 x10^3/uL (0.0-0.2); BASO % 1 % (0-3); EOS % 3 % (0-3); HEMATOCRIT 23.1 % (39.0-53.0); HEMOGLOBIN 7.6 g/dL (13.0-17.5); LYMPH # 1.7 x10^3/uL (1.0-4.8); LYMPH % 17 % (24-48); MEAN CORPUSCULAR HEMOGLOBIN 31 pg (25-35); MEAN CORPUSCULAR HGB CONC 33 g/dL (31-37); MEAN CORPUSCULAR VOLUME 93 fL (79-100); MONO % 18 % (0-9); NEUT % 61 % (31-73); PLATELET COUNT 163 x10^3/uL (140-400); RED BLOOD COUNT 2.48 x10^6/uL (4.30-5.70); RED CELL DISTRIBUTION WIDTH 16.8 % (11.5-14.5); WHITE BLOOD COUNT 10.3 x10^3/uL (4.0-11.0)
[2016-10-07 01:31] LABS: INR 3.6 (0.8-1.1); PROTHROMBIN TIME PATIENT 33.9 SEC (11.7-14.0)
[2016-10-07 01:33] LABS: ALBUMIN 2.2 g/dL (3.4-5.0); ALBUMIN/GLOBULIN RATIO 0.5 (1.0-1.7); CALCIUM 8.5 mg/dL (8.5-10.1); CREATININE 2.1 mg/dL (0.7-1.3); POTASSIUM 5.1 mmol/L (3.5-5.1); TOTAL BILIRUBIN 1.5 mg/dL (0.2-1.0); TOTAL PROTEIN 6.9 g/dL (6.4-8.2)
[2016-10-07 02:55] VITALS: BP 86/43
[2016-10-07] MEDS: chlordiazePOXIDE HCL 25 MG CAPSULE PO SCH ×3 (06:38→18:33)
[2016-10-07] MEDS: PANTOPRAZOLE 40 MG TABLET.DR. PO SCH (06:38)
[2016-10-07 07:00] VITALS: BP 90/52
[2016-10-07] MEDS: MAGNESIUM OXIDE 400 MG TABLET PO SCH (08:27)
[2016-10-07] MEDS: THIAMINE 100 MG TABLET. PO SCH (08:27)
[2016-10-07] MEDS: NICOTINE 21MG PATCH. TD SCH (08:28)
[2016-10-07] MEDS: FUROSEMIDE 40 MG/4 ML VIAL. IVP SCH (08:28)
[2016-10-07] MEDS ORDERED: FUROSEMIDE 20 MG TABLET PO SCH (09:00)
[2016-10-07] MEDS ORDERED: amLODIPine BESYLATE 5 MG TABLET PO SCH (09:00)
--- NOTE | 2016-10-07 09:22 | PDOC2 ---
PALOMA SMITH MEDICAL REVIEWER 10/07/16 0921: CARDIAC CONSULT DATE OF CONSULT Date of Consult DATE: 10/07/16 TIME: 09:07 REASON FOR CONSULT Reason for Consult: CHF REFERRING PHYSICIAN Referring Physician: Dr. Vogel SOURCE Source: Chart review, Patient HISTORY OF PRESENT ILLNESS HISTORY OF PRESENT ILLNESS This is a 36 yo male, well know to us from previous hospitalization, who presented with complaints of shortness of breath and increasing abdominal and LE edema. Symptoms have been present over the last 2-3 weeks but significantly worse over the last couple of days. Denies any CP, palpitations, dizziness, or diaphoresis. Has has mild orthopnea over the last couple of days. Patient hospitalized twice in early August for similar complaints. Was aggressively diuresed and treated for possible pneumonitis. Was discharge home with oral Lasix, which patient reports compliance with. Unfortunately, patient continues to smoke and drink heavily. No not monitor fluid or dietary intake. PAST MEDICAL HISTORY Past Medical History Cardiovascular: HTN, Hyperlipidemia, Diastolic CHF Pulmonary: possible COPD, cor pulmonale GI: GERD, Peptic Ulcer disease Heme/Onc: No pertinent hx Hepatobiliary: Other Psych: Depression, Schizophrenia Musculoskeletal: Other (elevated LFT's ) Rheumatologic: No pertinent hx Infectious disease: No pertinent hx ENT: No pertinent hx Renal/: No pertinent hx Endocrine: CRI Dermatology: No pertinent hx PAST SURGICAL HISTORY Past Surgical History: No pertinent history FAMILY HISTORY Family History: Hypertension SOCIAL HISTORY Social History Smoke: 1 pack per day ALCOHOL: heavy (6 pack beer and 1/2 pint gin daily ) Drugs: Marijuana (occasional ) Lives: with Family (mother ) CURRENT MEDICATIONS CURRENT MEDICATIONS Current Medications Medications (Trade) Dose Ordered Sig/Jarrett Route PRN Reason Start Time Stop Time Status Last Admin Dose Admin Furosemide (Lasix) 80 mg 1X ONCE IVP 10/06/16 15:30 10/06/16 15:31 DC 10/06/16 15:30 Multivitamins 10 ml/Thiamine HCl 100 mg/Folic Acid 1 mg/Sodium Chloride 1,011.2 ml @ 100 mls/ hr DAILY IV 10/06/16 17:00 10/06/16 21:37 DC 10/06/16 18:27 Chlordiazepoxide (Librium) 25 mg Q6HRS PO 10/06/16 17:00 10/08/16 00:01 10/07/16 06:38 Nicotine (Nicoderm Cq 21mg) 1 patch DAILY TD 10/07/16 09:00 10/07/16 08:28 Bupropion HCl (Wellbutrin) 100 mg BID PO 10/06/16 21:00 10/06/16 21:29 Magnesium Oxide (Magnesium Oxide) 400 mg DAILY PO 10/07/16 09:00 10/07/16 08:27 Pantoprazole Sodium (Protonix) 40 mg DAILYAC PO 10/07/16 07:30 10/07/16 06:38 Atorvastatin Calcium (Lipitor) 5 mg QHS PO 10/06/16 21:00 10/06/16 21:29 Thiamine Mononitrate (Vitamin B-1) 100 mg DAILY PO 10/06/16 21:45 10/07/16 08:27 Furosemide (Lasix) 80 mg DAILY08 IVP 10/07/16 08:00 10/07/16 08:28 ALLERGIES ALLERGIES: Coded Allergies: shellfish derived (Verified Allergy, Intermediate, 08/26/16) NSAIDS (Non-Steroidal Anti-Inflamma (Verified Allergy, Mild, "told not to take" for GI concerns, 09/23/13) ROS Review of System 14 point ROS conducted with pertinent positives noted above in HPI. PHYSICAL EXAM PHYSICAL EXAM General: Alert, Oriented X3, Cooperative, No acute distress HEENT: Atraumatic, Mucous membr. moist/pink Lungs: Normal air movement (diminished bases ) Heart: Regular rate, Normal S1, Normal S2, Other (2/6 systolic murmur ) Abdomen: Other (anasarca, abdomen firm, obese ) Extremities: Normal pulses, Other (significant LE edema bilaterally ) Skin: No significant lesion Neuro: Normal speech, Sensation intact Psych/Mental Status: Mental status NL, Mood NL MUSCULOSKELETAL: No joint tenderness VITALS VITALS Vital Signs Date Time Temp Pulse Resp B/P (MAP) Pulse Ox O2 Delivery O2 Flow Rate FiO2 10/07/16 07:00 99.0 89 24 90/52 (65) 98 Room Air 99.0 LABS Lab: Laboratory Tests Test 10/06/16 13:40 10/06/16 14:22 10/06/16 17:50 10/06/16 19:00 White Blood Count 11.6 x10^3/uL (4.0-11.0) Red Blood Count 2.58 x10^6/uL (4.30-5.70) Hemoglobin 7.9 g/dL (13.0-17.5) Hematocrit 24.3 % (39.0-53.0) Mean Corpuscular Volume 94 fL (79-100) Mean Corpuscular Hemoglobin 31 pg (25-35) Mean Corpuscular Hemoglobin Concent 33 g/dL (31-37) Red Cell Distribution Width 16.8 % (11.5-14.5) Platelet Count 171 x10^3/uL (140-400) Neutrophils (%) (Auto) 58 % (31-73) Lymphocytes (%) (Auto) 17 % (24-48) Monocytes (%) (Auto) 22 % (0-9) Eosinophils (%) (Auto) 2 % (0-3) Basophils (%) (Auto) 1 % (0-3) Neutrophils # (Auto) 6.8 x10^3uL (1.8-7.7) Lymphocytes # (Auto) 2.0 x10^3/uL (1.0-4.8) Monocytes # (Auto) 2.5 x10^3/uL (0.0-1.1) Eosinophils # (Auto) 0.2 x10^3/uL (0.0-0.7) Basophils # (Auto) 0.2 x10^3/uL (0.0-0.2) Segmented Neutrophils % 58 % (35-66) Band Neutrophils % 1 % (0-9) Lymphocytes % 20 % (24-48) Monocytes % 14 % (0-10) Eosinophils % 3 % (0-5) Basophils % 4 % (0-3) Platelet Estimate Adequate (ADEQUATE) Polychromasia Slight Sodium Level 129 mmol/L (136-145) Potassium Level 4.9 mmol/L (3.5-5.1) Chloride Level 96 mmol/L (98-107) Carbon Dioxide Level 18 mmol/L (21-32) Anion Gap 15 (6-14) Blood Urea Nitrogen 23 mg/dL (8-26) Creatinine 2.1 mg/dL (0.7-1.3) Estimated GFR (Cockcroft-Gault) 43.0 BUN/Creatinine Ratio 11 (6-20) Glucose Level 95 mg/dL (70-99) Calcium Level 8.6 mg/dL (8.5-10.1) Total Bilirubin 1.5 mg/dL (0.2-1.0) Aspartate Amino Transf (AST/SGOT) 43 U/L (15-37) Alanine Aminotransferase (ALT/SGPT) 20 U/L (16-63) Alkaline Phosphatase 384 U/L (46-116) Troponin I Quantitative < 0.017 ng/mL (0.000-0.055) < 0.017 ng/mL (0.000-0.055) MS-Xgw-I-Type Natriuretic Peptide 2348 pg/mL (0-124) Total Protein 7.5 g/dL (6.4-8.2) Albumin 2.3 g/dL (3.4-5.0) Albumin/Globulin Ratio 0.4 (1.0-1.7) Urine Collection Type Unknown Urine Color Dk yellow Urine Clarity Clear Urine pH 5.0 Urine Specific [place] 1.015 Urine Protein 30 mg/dL (NEG-TRACE) Urine Glucose (UA) Negative mg/dL (NEG) Urine Ketones (Stick) Trace mg/dL (NEG) Urine Blood Small (NEG) Urine Nitrite Negative (NEG) Urine Bilirubin Small (NEG) Urine Urobilinogen Dipstick 1.0 mg/dL (0.2 mg/dL) Urine Leukocyte Esterase Small (NEG) Urine RBC 1-2 /HPF (0-2) Urine WBC 1-4 /HPF (0-4) Urine Squamous Epithelial Cells Few /LPF Urine Bacteria Few /HPF (0-FEW) Urine Hyaline Casts Many /HPF Urine Mucus Mod /LPF Urine Sperm Present /HPF Urine Opiates Screen Neg (NEG) Urine Methadone Screen Neg (NEG) Urine Barbiturates Neg (NEG) Urine Phencyclidine Screen Neg (NEG) Urine Amphetamine/Methamphetamine Neg (NEG) Urine Benzodiazepines Screen Neg (NEG) Urine Cocaine Screen Neg (NEG) Urine Cannabinoids Screen Neg (NEG) Urine Ethyl Alcohol Neg (NEG) Test 10/07/16 01:00 White Blood Count 10.3 x10^3/uL (4.0-11.0) Red Blood Count 2.48 x10^6/uL (4.30-5.70) Hemoglobin 7.6 g/dL (13.0-17.5) Hematocrit 23.1 % (39.0-53.0) Mean Corpuscular Volume 93 fL (79-100) Mean Corpuscular Hemoglobin 31 pg (25-35) Mean Corpuscular Hemoglobin Concent 33 g/dL (31-37) Red Cell Distribution Width 16.8 % (11.5-14.5) Platelet Count 163 x10^3/uL (140-400) Neutrophils (%) (Auto) 61 % (31-73) Lymphocytes (%) (Auto) 17 % (24-48) Monocytes (%) (Auto) 18 % (0-9) Eosinophils (%) (Auto) 3 % (0-3) Basophils (%) (Auto) 1 % (0-3) Neutrophils # (Auto) 6.3 x10^3uL (1.8-7.7) Lymphocytes # (Auto) 1.7 x10^3/uL (1.0-4.8) Monocytes # (Auto) 1.8 x10^3/uL (0.0-1.1) Eosinophils # (Auto) 0.3 x10^3/uL (0.0-0.7) Basophils # (Auto) 0.1 x10^3/uL (0.0-0.2) Prothrombin Time 33.9 SEC (11.7-14.0) Prothromb Time International Ratio 3.6 (0.8-1.1) Sodium Level 133 mmol/L (136-145) Potassium Level 5.1 mmol/L (3.5-5.1) Chloride Level 100 mmol/L (98-107) Carbon Dioxide Level 21 mmol/L (21-32) Anion Gap 12 (6-14) Blood Urea Nitrogen 24 mg/dL (8-26) Creatinine 2.1 mg/dL (0.7-1.3) Estimated GFR (Cockcroft-Gault) 43.0 BUN/Creatinine Ratio 11 (6-20) Glucose Level 104 mg/dL (70-99) Calcium Level 8.5 mg/dL (8.5-10.1) Total Bilirubin 1.5 mg/dL (0.2-1.0) Aspartate Amino Transf (AST/SGOT) 41 U/L (15-37) Alanine Aminotransferase (ALT/SGPT) 19 U/L (16-63) Alkaline Phosphatase 367 U/L (46-116) Troponin I Quantitative < 0.017 ng/mL (0.000-0.055) Total Protein 6.9 g/dL (6.4-8.2) Albumin 2.2 g/dL (3.4-5.0) Albumin/Globulin Ratio 0.5 (1.0-1.7) ECHOCARDIOGRAM ECHOCARDIOGRAM <Conclusion> Left ventricle systolic function is normal. The Ejection Fraction is 60-65%. There is grossly normal LV segmental wall motion. Technically difficult study DATE: 08/25/16 1617 ASSESSMENT/PLAN ASSESSMENT/PLAN 1. Acute and chronic diastolic heart failure recent echo revealed normal LV function, PAP 39; technically difficult study due to body habitus. No RV dilatation noted. continue diuresis with close monitoring of renal function. 2000cc FR. 2. Acute on chronic respiratory failure multifactorial given morbid obesity/hypoventilation syndrome, diastolic HF, and likely COPD/ANNA. ? liver disease improved with diuresis per pulm 3. Hypertension now low-normotensice hold home antiHTN therapy for now 4. Normocytic anemia with coagulopathy (INR 3.6): Hgb 7.6 liver disease? with underlying ETOHism. per PCP 5. DAMOIN with CKD baseline near 1.5 per nephrology 6. Elevated lyte chains ? amyloidosis or myeloma outpatient f/u with Hem/Onc 10/19/16. 7. Chronic alcoholism monitor for withdrawal encouraged cessation 8. Morbid obesity lifestyle/diet modification discussed/encouraged 9. Anxiety/depression/schizophrenia Problems: MARANDA GAMINO MD 10/07/16 1303: CARDIAC CONSULT ALLERGIES ALLERGIES: Coded Allergies: shellfish derived (Verified Allergy, Intermediate, 08/26/16) NSAIDS (Non-Steroidal Anti-Inflamma (Verified Allergy, Mild, "told not to take" for GI concerns, 09/23/13) ASSESSMENT/PLAN ASSESSMENT/PLAN Patient seen and examined. Agree with MANUFACTURING COST ESTIMATOR's assessment and plan. Continue diuresis for acute on chronic diastolic heart failure. Recent 2-D echo showed normal LV systolic function. Agree with holding anti-hypertensives for borderline blood pressure. Nephrology team following for acute on chronic renal insufficiency. Thank you for your consultation. Problems: СЕРГЕЙ SMITHILY DAVID October 07, 2016 09:21 MARANDA GAMINO MD October 07, 2016 13:03
[2016-10-07] MEDS: buPROPion 100 MG TABLET PO SCH ×2 (10:17→22:02)
[2016-10-07] MEDS: VITAMIN B12,B9,B6 COMPLEX 1 TABLET. PO SCH (10:17)
[2016-10-07] MEDS: HALOPERIDOL 5 MG TABLET. PO SCH (10:17)
[2016-10-07 11:00] VITALS: BP 103/51
--- NOTE | 2016-10-07 11:17 | PDOC ---
PROGRESS NOTES Chief Complaint Chief Complaint cc: sob A/P 1. Acute and chronic diastolic heart failure: Continue IV Lasix, diuresis, monitor electrolytes and renal functions. 2. chronic respiratory failure: Possible Obesity hypoventilation. 3. Hypertension: stable. 4. Normocytic anemia with coagulopathy (INR 3.6): Hgb 7.6 : consult oncology, CMP, INR in AM. 5. DAMION with CKD: possible due to VMN 6. Elevated lyte chains: oncology follow up. 7. Chronic alcoholism: CIWA Protocol 8. Morbid obesity 9. Anxiety/depression/schizophrenia History of Present Illness History of Present Illness sob better no fever no chills no bleeding. Vitals Vitals Vital Signs Date Time Temp Pulse Resp B/P (MAP) Pulse Ox O2 Delivery O2 Flow Rate FiO2 10/07/16 07:00 99.0 89 24 90/52 (65) 98 Room Air 99.0 Physical Exam General: Alert, Oriented X3, No acute distress Heart: Normal S1, Normal S2 Lungs: Wheezing Abdomen: Normal bowel sounds (very obese, not tender, edema to abd) Extremities: No clubbing, Other (3+ edema and anasarca, chronic LE sclerosis from prior edema) Skin: No rashes, No breakdown, No significant lesion Labs LABS Laboratory Tests Test 10/06/16 13:40 10/06/16 14:22 10/06/16 17:50 10/06/16 19:00 White Blood Count 11.6 x10^3/uL (4.0-11.0) Red Blood Count 2.58 x10^6/uL (4.30-5.70) Hemoglobin 7.9 g/dL (13.0-17.5) Hematocrit 24.3 % (39.0-53.0) Mean Corpuscular Volume 94 fL (79-100) Mean Corpuscular Hemoglobin 31 pg (25-35) Mean Corpuscular Hemoglobin Concent 33 g/dL (31-37) Red Cell Distribution Width 16.8 % (11.5-14.5) Platelet Count 171 x10^3/uL (140-400) Neutrophils (%) (Auto) 58 % (31-73) Lymphocytes (%) (Auto) 17 % (24-48) Monocytes (%) (Auto) 22 % (0-9) Eosinophils (%) (Auto) 2 % (0-3) Basophils (%) (Auto) 1 % (0-3) Neutrophils # (Auto) 6.8 x10^3uL (1.8-7.7) Lymphocytes # (Auto) 2.0 x10^3/uL (1.0-4.8) Monocytes # (Auto) 2.5 x10^3/uL (0.0-1.1) Eosinophils # (Auto) 0.2 x10^3/uL (0.0-0.7) Basophils # (Auto) 0.2 x10^3/uL (0.0-0.2) Segmented Neutrophils % 58 % (35-66) Band Neutrophils % 1 % (0-9) Lymphocytes % 20 % (24-48) Monocytes % 14 % (0-10) Eosinophils % 3 % (0-5) Basophils % 4 % (0-3) Platelet Estimate Adequate (ADEQUATE) Polychromasia Slight Sodium Level 129 mmol/L (136-145) Potassium Level 4.9 mmol/L (3.5-5.1) Chloride Level 96 mmol/L (98-107) Carbon Dioxide Level 18 mmol/L (21-32) Anion Gap 15 (6-14) Blood Urea Nitrogen 23 mg/dL (8-26) Creatinine 2.1 mg/dL (0.7-1.3) Estimated GFR (Cockcroft-Gault) 43.0 BUN/Creatinine Ratio 11 (6-20) Glucose Level 95 mg/dL (70-99) Calcium Level 8.6 mg/dL (8.5-10.1) Total Bilirubin 1.5 mg/dL (0.2-1.0) Aspartate Amino Transf (AST/SGOT) 43 U/L (15-37) Alanine Aminotransferase (ALT/SGPT) 20 U/L (16-63) Alkaline Phosphatase 384 U/L (46-116) Troponin I Quantitative < 0.017 ng/mL (0.000-0.055) < 0.017 ng/mL (0.000-0.055) KD-Wsi-T-Type Natriuretic Peptide 2348 pg/mL (0-124) Total Protein 7.5 g/dL (6.4-8.2) Albumin 2.3 g/dL (3.4-5.0) Albumin/Globulin Ratio 0.4 (1.0-1.7) Urine Collection Type Unknown Urine Color Dk yellow Urine Clarity Clear Urine pH 5.0 Urine Specific [place] 1.015 Urine Protein 30 mg/dL (NEG-TRACE) Urine Glucose (UA) Negative mg/dL (NEG) Urine Ketones (Stick) Trace mg/dL (NEG) Urine Blood Small (NEG) Urine Nitrite Negative (NEG) Urine Bilirubin Small (NEG) Urine Urobilinogen Dipstick 1.0 mg/dL (0.2 mg/dL) Urine Leukocyte Esterase Small (NEG) Urine RBC 1-2 /HPF (0-2) Urine WBC 1-4 /HPF (0-4) Urine Squamous Epithelial Cells Few /LPF Urine Bacteria Few /HPF (0-FEW) Urine Hyaline Casts Many /HPF Urine Mucus Mod /LPF Urine Sperm Present /HPF Urine Opiates Screen Neg (NEG) Urine Methadone Screen Neg (NEG) Urine Barbiturates Neg (NEG) Urine Phencyclidine Screen Neg (NEG) Urine Amphetamine/Methamphetamine Neg (NEG) Urine Benzodiazepines Screen Neg (NEG) Urine Cocaine Screen Neg (NEG) Urine Cannabinoids Screen Neg (NEG) Urine Ethyl Alcohol Neg (NEG) Test 10/07/16 01:00 White Blood Count 10.3 x10^3/uL (4.0-11.0) Red Blood Count 2.48 x10^6/uL (4.30-5.70) Hemoglobin 7.6 g/dL (13.0-17.5) Hematocrit 23.1 % (39.0-53.0) Mean Corpuscular Volume 93 fL (79-100) Mean Corpuscular Hemoglobin 31 pg (25-35) Mean Corpuscular Hemoglobin Concent 33 g/dL (31-37) Red Cell Distribution Width 16.8 % (11.5-14.5) Platelet Count 163 x10^3/uL (140-400) Neutrophils (%) (Auto) 61 % (31-73) Lymphocytes (%) (Auto) 17 % (24-48) Monocytes (%) (Auto) 18 % (0-9) Eosinophils (%) (Auto) 3 % (0-3) Basophils (%) (Auto) 1 % (0-3) Neutrophils # (Auto) 6.3 x10^3uL (1.8-7.7) Lymphocytes # (Auto) 1.7 x10^3/uL (1.0-4.8) Monocytes # (Auto) 1.8 x10^3/uL (0.0-1.1) Eosinophils # (Auto) 0.3 x10^3/uL (0.0-0.7) Basophils # (Auto) 0.1 x10^3/uL (0.0-0.2) Prothrombin Time 33.9 SEC (11.7-14.0) Prothromb Time International Ratio 3.6 (0.8-1.1) Sodium Level 133 mmol/L (136-145) Potassium Level 5.1 mmol/L (3.5-5.1) Chloride Level 100 mmol/L (98-107) Carbon Dioxide Level 21 mmol/L (21-32) Anion Gap 12 (6-14) Blood Urea Nitrogen 24 mg/dL (8-26) Creatinine 2.1 mg/dL (0.7-1.3) Estimated GFR (Cockcroft-Gault) 43.0 BUN/Creatinine Ratio 11 (6-20) Glucose Level 104 mg/dL (70-99) Calcium Level 8.5 mg/dL (8.5-10.1) Total Bilirubin 1.5 mg/dL (0.2-1.0) Aspartate Amino Transf (AST/SGOT) 41 U/L (15-37) Alanine Aminotransferase (ALT/SGPT) 19 U/L (16-63) Alkaline Phosphatase 367 U/L (46-116) Troponin I Quantitative < 0.017 ng/mL (0.000-0.055) Total Protein 6.9 g/dL (6.4-8.2) Albumin 2.2 g/dL (3.4-5.0) Albumin/Globulin Ratio 0.5 (1.0-1.7) Assessment and Plan Assessmemt and Plan Problems Medical Problems: (1) Alcohol abuse Status: Acute (2) Anasarca Status: Acute (3) Congestive heart failure Status: Acute Problems: Comment Review of Relevant I have reviewed the following items maci (where applicable) has been applied. Labs Laboratory Tests Test 10/06/16 13:40 10/06/16 14:22 10/06/16 17:50 10/06/16 19:00 White Blood Count 11.6 x10^3/uL (4.0-11.0) Red Blood Count 2.58 x10^6/uL (4.30-5.70) Hemoglobin 7.9 g/dL (13.0-17.5) Hematocrit 24.3 % (39.0-53.0) Mean Corpuscular Volume 94 fL (79-100) Mean Corpuscular Hemoglobin 31 pg (25-35) Mean Corpuscular Hemoglobin Concent 33 g/dL (31-37) Red Cell Distribution Width 16.8 % (11.5-14.5) Platelet Count 171 x10^3/uL (140-400) Neutrophils (%) (Auto) 58 % (31-73) Lymphocytes (%) (Auto) 17 % (24-48) Monocytes (%) (Auto) 22 % (0-9) Eosinophils (%) (Auto) 2 % (0-3) Basophils (%) (Auto) 1 % (0-3) Neutrophils # (Auto) 6.8 x10^3uL (1.8-7.7) Lymphocytes # (Auto) 2.0 x10^3/uL (1.0-4.8) Monocytes # (Auto) 2.5 x10^3/uL (0.0-1.1) Eosinophils # (Auto) 0.2 x10^3/uL (0.0-0.7) Basophils # (Auto) 0.2 x10^3/uL (0.0-0.2) Segmented Neutrophils % 58 % (35-66) Band Neutrophils % 1 % (0-9) Lymphocytes % 20 % (24-48) Monocytes % 14 % (0-10) Eosinophils % 3 % (0-5) Basophils % 4 % (0-3) Platelet Estimate Adequate (ADEQUATE) Polychromasia Slight Sodium Level 129 mmol/L (136-145) Potassium Level 4.9 mmol/L (3.5-5.1) Chloride Level 96 mmol/L (98-107) Carbon Dioxide Level 18 mmol/L (21-32) Anion Gap 15 (6-14) Blood Urea Nitrogen 23 mg/dL (8-26) Creatinine 2.1 mg/dL (0.7-1.3) Estimated GFR (Cockcroft-Gault) 43.0 BUN/Creatinine Ratio 11 (6-20) Glucose Level 95 mg/dL (70-99) Calcium Level 8.6 mg/dL (8.5-10.1) Total Bilirubin 1.5 mg/dL (0.2-1.0) Aspartate Amino Transf (AST/SGOT) 43 U/L (15-37) Alanine Aminotransferase (ALT/SGPT) 20 U/L (16-63) Alkaline Phosphatase 384 U/L (46-116) Troponin I Quantitative < 0.017 ng/mL (0.000-0.055) < 0.017 ng/mL (0.000-0.055) OP-Jmi-N-Type Natriuretic Peptide 2348 pg/mL (0-124) Total Protein 7.5 g/dL (6.4-8.2) Albumin 2.3 g/dL (3.4-5.0) Albumin/Globulin Ratio 0.4 (1.0-1.7) Urine Collection Type Unknown Urine Color Dk yellow Urine Clarity Clear Urine pH 5.0 Urine Specific [place] 1.015 Urine Protein 30 mg/dL (NEG-TRACE) Urine Glucose (UA) Negative mg/dL (NEG) Urine Ketones (Stick) Trace mg/dL (NEG) Urine Blood Small (NEG) Urine Nitrite Negative (NEG) Urine Bilirubin Small (NEG) Urine Urobilinogen Dipstick 1.0 mg/dL (0.2 mg/dL) Urine Leukocyte Esterase Small (NEG) Urine RBC 1-2 /HPF (0-2) Urine WBC 1-4 /HPF (0-4) Urine Squamous Epithelial Cells Few /LPF Urine Bacteria Few /HPF (0-FEW) Urine Hyaline Casts Many /HPF Urine Mucus Mod /LPF Urine Sperm Present /HPF Urine Opiates Screen Neg (NEG) Urine Methadone Screen Neg (NEG) Urine Barbiturates Neg (NEG) Urine Phencyclidine Screen Neg (NEG) Urine Amphetamine/Methamphetamine Neg (NEG) Urine Benzodiazepines Screen Neg (NEG) Urine Cocaine Screen Neg (NEG) Urine Cannabinoids Screen Neg (NEG) Urine Ethyl Alcohol Neg (NEG) Test 10/07/16 01:00 White Blood Count 10.3 x10^3/uL (4.0-11.0) Red Blood Count 2.48 x10^6/uL (4.30-5.70) Hemoglobin 7.6 g/dL (13.0-17.5) Hematocrit 23.1 % (39.0-53.0) Mean Corpuscular Volume 93 fL (79-100) Mean Corpuscular Hemoglobin 31 pg (25-35) Mean Corpuscular Hemoglobin Concent 33 g/dL (31-37) Red Cell Distribution Width 16.8 % (11.5-14.5) Platelet Count 163 x10^3/uL (140-400) Neutrophils (%) (Auto) 61 % (31-73) Lymphocytes (%) (Auto) 17 % (24-48) Monocytes (%) (Auto) 18 % (0-9) Eosinophils (%) (Auto) 3 % (0-3) Basophils (%) (Auto) 1 % (0-3) Neutrophils # (Auto) 6.3 x10^3uL (1.8-7.7) Lymphocytes # (Auto) 1.7 x10^3/uL (1.0-4.8) Monocytes # (Auto) 1.8 x10^3/uL (0.0-1.1) Eosinophils # (Auto) 0.3 x10^3/uL (0.0-0.7) Basophils # (Auto) 0.1 x10^3/uL (0.0-0.2) Prothrombin Time 33.9 SEC (11.7-14.0) Prothromb Time International Ratio 3.6 (0.8-1.1) Sodium Level 133 mmol/L (136-145) Potassium Level 5.1 mmol/L (3.5-5.1) Chloride Level 100 mmol/L (98-107) Carbon Dioxide Level 21 mmol/L (21-32) Anion Gap 12 (6-14) Blood Urea Nitrogen 24 mg/dL (8-26) Creatinine 2.1 mg/dL (0.7-1.3) Estimated GFR (Cockcroft-Gault) 43.0 BUN/Creatinine Ratio 11 (6-20) Glucose Level 104 mg/dL (70-99) Calcium Level 8.5 mg/dL (8.5-10.1) Total Bilirubin 1.5 mg/dL (0.2-1.0) Aspartate Amino Transf (AST/SGOT) 41 U/L (15-37) Alanine Aminotransferase (ALT/SGPT) 19 U/L (16-63) Alkaline Phosphatase 367 U/L (46-116) Troponin I Quantitative < 0.017 ng/mL (0.000-0.055) Total Protein 6.9 g/dL (6.4-8.2) Albumin 2.2 g/dL (3.4-5.0) Albumin/Globulin Ratio 0.5 (1.0-1.7) Laboratory Tests Test 10/06/16 13:40 10/06/16 14:22 10/06/16 17:50 10/06/16 19:00 White Blood Count 11.6 x10^3/uL (4.0-11.0) Red Blood Count 2.58 x10^6/uL (4.30-5.70) Hemoglobin 7.9 g/dL (13.0-17.5) Hematocrit 24.3 % (39.0-53.0) Mean Corpuscular Volume 94 fL (79-100) Mean Corpuscular Hemoglobin 31 pg (25-35) Mean Corpuscular Hemoglobin Concent 33 g/dL (31-37) Red Cell Distribution Width 16.8 % (11.5-14.5) Platelet Count 171 x10^3/uL (140-400) Neutrophils (%) (Auto) 58 % (31-73) Lymphocytes (%) (Auto) 17 % (24-48) Monocytes (%) (Auto) 22 % (0-9) Eosinophils (%) (Auto) 2 % (0-3) Basophils (%) (Auto) 1 % (0-3) Neutrophils # (Auto) 6.8 x10^3uL (1.8-7.7) Lymphocytes # (Auto) 2.0 x10^3/uL (1.0-4.8) Monocytes # (Auto) 2.5 x10^3/uL (0.0-1.1) Eosinophils # (Auto) 0.2 x10^3/uL (0.0-0.7) Basophils # (Auto) 0.2 x10^3/uL (0.0-0.2) Segmented Neutrophils % 58 % (35-66) Band Neutrophils % 1 % (0-9) Lymphocytes % 20 % (24-48) Monocytes % 14 % (0-10) Eosinophils % 3 % (0-5) Basophils % 4 % (0-3) Platelet Estimate Adequate (ADEQUATE) Polychromasia Slight Sodium Level 129 mmol/L (136-145) Potassium Level 4.9 mmol/L (3.5-5.1) Chloride Level 96 mmol/L (98-107) Carbon Dioxide Level 18 mmol/L (21-32) Anion Gap 15 (6-14) Blood Urea Nitrogen 23 mg/dL (8-26) Creatinine 2.1 mg/dL (0.7-1.3) Estimated GFR (Cockcroft-Gault) 43.0 BUN/Creatinine Ratio 11 (6-20) Glucose Level 95 mg/dL (70-99) Calcium Level 8.6 mg/dL (8.5-10.1) Total Bilirubin 1.5 mg/dL (0.2-1.0) Aspartate Amino Transf (AST/SGOT) 43 U/L (15-37) Alanine Aminotransferase (ALT/SGPT) 20 U/L (16-63) Alkaline Phosphatase 384 U/L (46-116) Troponin I Quantitative < 0.017 ng/mL (0.000-0.055) < 0.017 ng/mL (0.000-0.055) OK-Xmv-T-Type Natriuretic Peptide 2348 pg/mL (0-124) Total Protein 7.5 g/dL (6.4-8.2) Albumin 2.3 g/dL (3.4-5.0) Albumin/Globulin Ratio 0.4 (1.0-1.7) Urine Collection Type Unknown Urine Color Dk yellow Urine Clarity Clear Urine pH 5.0 Urine Specific [place] 1.015 Urine Protein 30 mg/dL (NEG-TRACE) Urine Glucose (UA) Negative mg/dL (NEG) Urine Ketones (Stick) Trace mg/dL (NEG) Urine Blood Small (NEG) Urine Nitrite Negative (NEG) Urine Bilirubin Small (NEG) Urine Urobilinogen Dipstick 1.0 mg/dL (0.2 mg/dL) Urine Leukocyte Esterase Small (NEG) Urine RBC 1-2 /HPF (0-2) Urine WBC 1-4 /HPF (0-4) Urine Squamous Epithelial Cells Few /LPF Urine Bacteria Few /HPF (0-FEW) Urine Hyaline Casts Many /HPF Urine Mucus Mod /LPF Urine Sperm Present /HPF Urine Opiates Screen Neg (NEG) Urine Methadone Screen Neg (NEG) Urine Barbiturates Neg (NEG) Urine Phencyclidine Screen Neg (NEG) Urine Amphetamine/Methamphetamine Neg (NEG) Urine Benzodiazepines Screen Neg (NEG) Urine Cocaine Screen Neg (NEG) Urine Cannabinoids Screen Neg (NEG) Urine Ethyl Alcohol Neg (NEG) Test 10/07/16 01:00 White Blood Count 10.3 x10^3/uL (4.0-11.0) Red Blood Count 2.48 x10^6/uL (4.30-5.70) Hemoglobin 7.6 g/dL (13.0-17.5) Hematocrit 23.1 % (39.0-53.0) Mean Corpuscular Volume 93 fL (79-100) Mean Corpuscular Hemoglobin 31 pg (25-35) Mean Corpuscular Hemoglobin Concent 33 g/dL (31-37) Red Cell Distribution Width 16.8 % (11.5-14.5) Platelet Count 163 x10^3/uL (140-400) Neutrophils (%) (Auto) 61 % (31-73) Lymphocytes (%) (Auto) 17 % (24-48) Monocytes (%) (Auto) 18 % (0-9) Eosinophils (%) (Auto) 3 % (0-3) Basophils (%) (Auto) 1 % (0-3) Neutrophils # (Auto) 6.3 x10^3uL (1.8-7.7) Lymphocytes # (Auto) 1.7 x10^3/uL (1.0-4.8) Monocytes # (Auto) 1.8 x10^3/uL (0.0-1.1) Eosinophils # (Auto) 0.3 x10^3/uL (0.0-0.7) Basophils # (Auto) 0.1 x10^3/uL (0.0-0.2) Prothrombin Time 33.9 SEC (11.7-14.0) Prothromb Time International Ratio 3.6 (0.8-1.1) Sodium Level 133 mmol/L (136-145) Potassium Level 5.1 mmol/L (3.5-5.1) Chloride Level 100 mmol/L (98-107) Carbon Dioxide Level 21 mmol/L (21-32) Anion Gap 12 (6-14) Blood Urea Nitrogen 24 mg/dL (8-26) Creatinine 2.1 mg/dL (0.7-1.3) Estimated GFR (Cockcroft-Gault) 43.0 BUN/Creatinine Ratio 11 (6-20) Glucose Level 104 mg/dL (70-99) Calcium Level 8.5 mg/dL (8.5-10.1) Total Bilirubin 1.5 mg/dL (0.2-1.0) Aspartate Amino Transf (AST/SGOT) 41 U/L (15-37) Alanine Aminotransferase (ALT/SGPT) 19 U/L (16-63) Alkaline Phosphatase 367 U/L (46-116) Troponin I Quantitative < 0.017 ng/mL (0.000-0.055) Total Protein 6.9 g/dL (6.4-8.2) Albumin 2.2 g/dL (3.4-5.0) Albumin/Globulin Ratio 0.5 (1.0-1.7) Medications Current Medications Furosemide (Lasix) 80 mg 1X ONCE IVP Last administered on 10/06/16 15:30; Start 10/06/16 at 15:30; Stop 10/06/16 at 15:31; Status DC Ondansetron HCl (Zofran) 4 mg PRN Q8HRS PRN IV NAUSEA/VOMITING; Start 10/06/16 at 16:45; Stop 10/07/16 at 16:44 Morphine Sulfate 4 mg PRN Q2HR PRN IV PAIN; Start 10/06/16 at 16:45; Stop 10/07 at 16:44 Nitroglycerin (Nitrostat) 0.4 mg PRN Q5MIN PRN SL CHEST PAIN; Start 10/06/16 at 16:45; Stop 10/07/16 at 16:44 Multivitamins 10 ml/Thiamine HCl 100 mg/Folic Acid 1 mg/Sodium Chloride 1,011.2 ml @ 100 mls/ hr DAILY IV Last administered on 10/06/16 18:27; Start at 17:00; Stop 10/06/16 at 21:37; Status DC Chlordiazepoxide (Librium) 25 mg Q6HRS PO Last administered on 10/07/16 06:38 ; Start 10/06/16 at 17:00; Stop 10/08/16 at 00:01 Nicotine (Nicoderm Cq 21mg) 1 patch DAILY TD Last administered on 10/07/16 08: 28; Start 10/07/16 at 09:00 Bupropion HCl (Wellbutrin) 100 mg BID PO Last administered on 10/07/16 10:17; Start 10/06/16 at 21:00 Furosemide (Lasix) 20 mg DAILY PO ; Start 10/07/16 at 09:00; Stop 10/07/16 at 09 :00; Status DC Haloperidol (Haldol) 5 mg DAILY PO Last administered on 10/07/16 10:17; Start 10/07/16 at 09:00 Magnesium Oxide (Magnesium Oxide) 400 mg DAILY PO Last administered on 08:27; Start 10/07/16 at 09:00 Pantoprazole Sodium (Protonix) 40 mg DAILYAC PO Last administered on 10/07/16 06:38; Start 10/07/16 at 07:30 Atorvastatin Calcium (Lipitor) 5 mg QHS PO Last administered on 10/06/16 21:29 ; Start 10/06/16 at 21:00 Amlodipine Besylate (Norvasc) 5 mg DAILY PO ; Start 10/07/16 at 09:00; Stop at 09:37; Status DC Lorazepam (Ativan) 2 mg PRN Q1HR PRN IV For CIWA 8-14; Start 10/06/16 at 21:30 Lorazepam (Ativan) 4 mg PRN Q1HR PRN IV For CIWA 15 or greater; Start 10/06/16 at 21:30 Thiamine Mononitrate (Vitamin B-1) 100 mg DAILY PO Last administered on 08:27; Start 10/06/16 at 21:45 Vitamin B Complex (Folbic Tablet) 1 tab DAILY PO Last administered on 10:17; Start 10/07/16 at 09:00 Furosemide (Lasix) 80 mg DAILY08 IVP Last administered on 10/07/16 08:28; Start 10/07/16 at 08:00 Active Scripts Active Lasix (Furosemide) 20 Mg Tablet 1 Tab PO DAILY Magnesium Oxide 400 Mg Tablet 1 Tab PO DAILY Reported Pravastatin Sodium 20 Mg Tablet 20 Mg PO DAILY Wellbutrin (Bupropion Hcl) 100 Mg Tablet Unknown Dose PO BID Haloperidol 2 Mg Tablet 5 Mg PO DAILY Prilosec (Omeprazole) 40 Mg Capsule.dr 40 Mg PO DAILY Exforge 5-160 Mg Tablet (Amlodipine/Valsartan) 1 Each Tablet Unknown Dose PO Vitals/I & O Vital Sign - Last 24 Hours 10/06/16 10/06/16 10/06/16 10/06/16 13:39 14:00 15:00 16:00 Temp 97.8 97.8 Pulse 98 91 92 93 Resp 32 22 22 22 B/P (MAP) 131/69 (89) 103/50 (67) 107/54 (71) 114/50 (71) Pulse Ox 100 100 97 100 O2 Delivery Room Air Room Air Room Air Room Air 10/06/16 10/06/16 10/06/16 10/06/16 16:34 18:01 18:36 19:30 Temp 97.8 97.8 Pulse 94 94 Resp 22 18 B/P (MAP) 122/50 (74) 122/50 (74) Pulse Ox 98 98 O2 Delivery Room Air Room Air Room Air Room Air 10/06/16 10/06/16 10/07/16 10/07/16 19:36 22:12 02:55 07:00 Temp 98.8 99.6 99.6 99.0 98.8 99.6 99.6 99.0 Pulse 95 91 92 89 Resp 26 20 20 24 B/P (MAP) 112/60 (77) 118/56 (76) 86/43 (57) 90/52 (65) Pulse Ox 96 98 94 98 O2 Delivery Room Air Room Air Room Air Intake and Output 10/06/16 10/06/16 10/07/16 15:00 23:00 07:00 Intake Total 400 ml 410 ml Output Total 200 ml 100 ml Balance 200 ml 310 ml TONI GIORDANO MD October 07, 2016 11:17
--- NOTE | 2016-10-07 11:28 | PDOC2 ---
CONSULT Date of Consult Date of Consult DATE: 10/07/16 TIME: 11:25 Reason for Consult Reason for Consult: DAMION Referring Physician Referring Physician: Dr Robins Identification/Chief Complaint Chief Complaint low ext swelling and subj SOB Problems: Source Source: Chart review, Patient History of Present Illness Reason for Visit: as dictated Past Medical History Cardiovascular: HTN, Hyperlipidemia Pulmonary: No pertinent hx GI: GERD, Peptic Ulcer disease Heme/Onc: No pertinent hx Hepatobiliary: Other Psych: Addictions, Depression, Schizophrenia Musculoskeletal: low back pain, Other Rheumatologic: No pertinent hx Infectious disease: No pertinent hx Renal/: No pertinent hx Endocrine: No pertinent hx Past Surgical History Past Surgical History: No pertinent history Family History Family History: Hypertension Social History 1 pack per day ALCOHOL: heavy Drugs: Marijuana Lives: with Family Current Problem List Problem List Problems Medical Problems: (1) Alcohol abuse Status: Acute (2) Anasarca Status: Acute (3) Congestive heart failure Status: Acute Current Medications Current Medications Current Medications Furosemide (Lasix) 80 mg 1X ONCE IVP Last administered on 10/06/16 15:30; Start 10/06/16 at 15:30; Stop 10/06/16 at 15:31; Status DC Ondansetron HCl (Zofran) 4 mg PRN Q8HRS PRN IV NAUSEA/VOMITING; Start 10/06/16 at 16:45; Stop 10/07/16 at 16:44 Morphine Sulfate 4 mg PRN Q2HR PRN IV PAIN; Start 10/06/16 at 16:45; Stop 10/07 at 16:44 Nitroglycerin (Nitrostat) 0.4 mg PRN Q5MIN PRN SL CHEST PAIN; Start 10/06/16 at 16:45; Stop 10/07/16 at 16:44 Multivitamins 10 ml/Thiamine HCl 100 mg/Folic Acid 1 mg/Sodium Chloride 1,011.2 ml @ 100 mls/ hr DAILY IV Last administered on 10/06/16 18:27; Start at 17:00; Stop 10/06/16 at 21:37; Status DC Chlordiazepoxide (Librium) 25 mg Q6HRS PO Last administered on 10/07/16 06:38 ; Start 10/06/16 at 17:00; Stop 10/08/16 at 00:01 Nicotine (Nicoderm Cq 21mg) 1 patch DAILY TD Last administered on 10/07/16 08: 28; Start 10/07/16 at 09:00 Bupropion HCl (Wellbutrin) 100 mg BID PO Last administered on 10/07/16 10:17; Start 10/06/16 at 21:00 Furosemide (Lasix) 20 mg DAILY PO ; Start 10/07/16 at 09:00; Stop 10/07/16 at 09 :00; Status DC Haloperidol (Haldol) 5 mg DAILY PO Last administered on 10/07/16 10:17; Start 10/07/16 at 09:00 Magnesium Oxide (Magnesium Oxide) 400 mg DAILY PO Last administered on 08:27; Start 10/07/16 at 09:00 Pantoprazole Sodium (Protonix) 40 mg DAILYAC PO Last administered on 10/07/16 06:38; Start 10/07/16 at 07:30 Atorvastatin Calcium (Lipitor) 5 mg QHS PO Last administered on 10/06/16 21:29 ; Start 10/06/16 at 21:00 Amlodipine Besylate (Norvasc) 5 mg DAILY PO ; Start 10/07/16 at 09:00; Stop at 09:37; Status DC Lorazepam (Ativan) 2 mg PRN Q1HR PRN IV For CIWA 8-14; Start 10/06/16 at 21:30 Lorazepam (Ativan) 4 mg PRN Q1HR PRN IV For CIWA 15 or greater; Start 10/06/16 at 21:30 Thiamine Mononitrate (Vitamin B-1) 100 mg DAILY PO Last administered on 08:27; Start 10/06/16 at 21:45 Vitamin B Complex (Folbic Tablet) 1 tab DAILY PO Last administered on 10:17; Start 10/07/16 at 09:00 Furosemide (Lasix) 80 mg DAILY08 IVP Last administered on 10/07/16 08:28; Start 10/07/16 at 08:00 Active Scripts Active Lasix (Furosemide) 20 Mg Tablet 1 Tab PO DAILY Magnesium Oxide 400 Mg Tablet 1 Tab PO DAILY Reported Pravastatin Sodium 20 Mg Tablet 20 Mg PO DAILY Wellbutrin (Bupropion Hcl) 100 Mg Tablet Unknown Dose PO BID Haloperidol 2 Mg Tablet 5 Mg PO DAILY Prilosec (Omeprazole) 40 Mg Capsule.dr 40 Mg PO DAILY Exforge 5-160 Mg Tablet (Amlodipine/Valsartan) 1 Each Tablet Unknown Dose PO Allergies Allergies: Coded Allergies: shellfish derived (Verified Allergy, Intermediate, 08/26/16) NSAIDS (Non-Steroidal Anti-Inflamma (Verified Allergy, Mild, "told not to take" for GI concerns, 09/23/13) ROS Review of System GEN: ? Fevers no Chills EYES: no new Visual Complaints ENT: no EN Drainage no Hearing deficiets CVS: no Orthopnea no CP + Edema in lowoer ext RESP: + SOB no KAYE GI: no Nausea no Vomiting : no Dysuria no Urgency HEME: no easy bruising no Palp Ly Nodes NEURO no Focal Weakness no Sz PSYCH: no Suicidal Ideation ch Depression/ Schizo SKIN: no new Rashes ENDO: no Polyuria or Polydipsia no Hot/Cold Intolerance MU SK: occ Arthraigia no Myalgia Physical Exam Physical Exam General Appearance: Awake Alert Oriented x 2-3 In no Distress Eyes: VIsion Unchanged Conjunctiva min left erythema EN: No EN Drainage Mucous Memb. mosit Neck: no JVD no JVP Supple no Thyromegaly; thick neck CVS: S1 S2 no Murmur No Gallop No Rub + Edema Resp: no Rales no Rhonchi no Acc. Muscle use; distal BS GI: BS +ve NO Bruit Non Tender Morbidly obese : no CVA tenderness; no Suprapubic Tenderness SKIN: no Rashes Breast Exam deferred Mu.Sk: Adequate ROM no Muscle Atrophy Heme: Unable to palpate Obvious LAD no palp Splenomegaly NEURO: Good Strength and Tone Cranial Nerves II - XII grossly intact Psych: ? Depressed no Active hallucination Vital Signs Vital Signs Date Time Temp Pulse Resp B/P (MAP) Pulse Ox O2 Delivery O2 Flow Rate FiO2 10/07/16 07:00 99.0 89 24 90/52 (65) 98 Room Air 99.0 Assessment & Plan Assessment & Plan DAMION - suspect due to Low BP (VMN) vs pre-renal from HRS, (UA with Hyaline casts) Current FLuid and E-lyte status does not necessitate emergent need for Dialysis. NO IVF for now until cardiac status is clarified. Diuresis for Possible CHF Exac CKD III - creat of 1.5 cannot be ruled out. Edema - ? Liver etio related min currenlty to my exam HypoTN: Current BP meds reviewed and some held - defer to cardiology ? CHF Exac - ABN CXR ntoed with ^ ed BNP - diuresis once BP allows ^ Protein gap - ruled out Paraproteinuria on previous PEPs Aenmia - check Iron - ? asso with Liver ABN, previous GI losses noted HypoAlb - check Pre-Alb Labs Labs Laboratory Tests Test 10/06/16 13:40 10/06/16 14:22 10/06/16 17:50 10/06/16 19:00 White Blood Count 11.6 x10^3/uL (4.0-11.0) Red Blood Count 2.58 x10^6/uL (4.30-5.70) Hemoglobin 7.9 g/dL (13.0-17.5) Hematocrit 24.3 % (39.0-53.0) Mean Corpuscular Volume 94 fL (79-100) Mean Corpuscular Hemoglobin 31 pg (25-35) Mean Corpuscular Hemoglobin Concent 33 g/dL (31-37) Red Cell Distribution Width 16.8 % (11.5-14.5) Platelet Count 171 x10^3/uL (140-400) Neutrophils (%) (Auto) 58 % (31-73) Lymphocytes (%) (Auto) 17 % (24-48) Monocytes (%) (Auto) 22 % (0-9) Eosinophils (%) (Auto) 2 % (0-3) Basophils (%) (Auto) 1 % (0-3) Neutrophils # (Auto) 6.8 x10^3uL (1.8-7.7) Lymphocytes # (Auto) 2.0 x10^3/uL (1.0-4.8) Monocytes # (Auto) 2.5 x10^3/uL (0.0-1.1) Eosinophils # (Auto) 0.2 x10^3/uL (0.0-0.7) Basophils # (Auto) 0.2 x10^3/uL (0.0-0.2) Segmented Neutrophils % 58 % (35-66) Band Neutrophils % 1 % (0-9) Lymphocytes % 20 % (24-48) Monocytes % 14 % (0-10) Eosinophils % 3 % (0-5) Basophils % 4 % (0-3) Platelet Estimate Adequate (ADEQUATE) Polychromasia Slight Sodium Level 129 mmol/L (136-145) Potassium Level 4.9 mmol/L (3.5-5.1) Chloride Level 96 mmol/L (98-107) Carbon Dioxide Level 18 mmol/L (21-32) Anion Gap 15 (6-14) Blood Urea Nitrogen 23 mg/dL (8-26) Creatinine 2.1 mg/dL (0.7-1.3) Estimated GFR (Cockcroft-Gault) 43.0 BUN/Creatinine Ratio 11 (6-20) Glucose Level 95 mg/dL (70-99) Calcium Level 8.6 mg/dL (8.5-10.1) Total Bilirubin 1.5 mg/dL (0.2-1.0) Aspartate Amino Transf (AST/SGOT) 43 U/L (15-37) Alanine Aminotransferase (ALT/SGPT) 20 U/L (16-63) Alkaline Phosphatase 384 U/L (46-116) Troponin I Quantitative < 0.017 ng/mL (0.000-0.055) < 0.017 ng/mL (0.000-0.055) EF-Pgu-A-Type Natriuretic Peptide 2348 pg/mL (0-124) Total Protein 7.5 g/dL (6.4-8.2) Albumin 2.3 g/dL (3.4-5.0) Albumin/Globulin Ratio 0.4 (1.0-1.7) Urine Collection Type Unknown Urine Color Dk yellow Urine Clarity Clear Urine pH 5.0 Urine Specific [place] 1.015 Urine Protein 30 mg/dL (NEG-TRACE) Urine Glucose (UA) Negative mg/dL (NEG) Urine Ketones (Stick) Trace mg/dL (NEG) Urine Blood Small (NEG) Urine Nitrite Negative (NEG) Urine Bilirubin Small (NEG) Urine Urobilinogen Dipstick 1.0 mg/dL (0.2 mg/dL) Urine Leukocyte Esterase Small (NEG) Urine RBC 1-2 /HPF (0-2) Urine WBC 1-4 /HPF (0-4) Urine Squamous Epithelial Cells Few /LPF Urine Bacteria Few /HPF (0-FEW) Urine Hyaline Casts Many /HPF Urine Mucus Mod /LPF Urine Sperm Present /HPF Urine Opiates Screen Neg (NEG) Urine Methadone Screen Neg (NEG) Urine Barbiturates Neg (NEG) Urine Phencyclidine Screen Neg (NEG) Urine Amphetamine/Methamphetamine Neg (NEG) Urine Benzodiazepines Screen Neg (NEG) Urine Cocaine Screen Neg (NEG) Urine Cannabinoids Screen Neg (NEG) Urine Ethyl Alcohol Neg (NEG) Test 10/07/16 01:00 White Blood Count 10.3 x10^3/uL (4.0-11.0) Red Blood Count 2.48 x10^6/uL (4.30-5.70) Hemoglobin 7.6 g/dL (13.0-17.5) Hematocrit 23.1 % (39.0-53.0) Mean Corpuscular Volume 93 fL (79-100) Mean Corpuscular Hemoglobin 31 pg (25-35) Mean Corpuscular Hemoglobin Concent 33 g/dL (31-37) Red Cell Distribution Width 16.8 % (11.5-14.5) Platelet Count 163 x10^3/uL (140-400) Neutrophils (%) (Auto) 61 % (31-73) Lymphocytes (%) (Auto) 17 % (24-48) Monocytes (%) (Auto) 18 % (0-9) Eosinophils (%) (Auto) 3 % (0-3) Basophils (%) (Auto) 1 % (0-3) Neutrophils # (Auto) 6.3 x10^3uL (1.8-7.7) Lymphocytes # (Auto) 1.7 x10^3/uL (1.0-4.8) Monocytes # (Auto) 1.8 x10^3/uL (0.0-1.1) Eosinophils # (Auto) 0.3 x10^3/uL (0.0-0.7) Basophils # (Auto) 0.1 x10^3/uL (0.0-0.2) Prothrombin Time 33.9 SEC (11.7-14.0) Prothromb Time International Ratio 3.6 (0.8-1.1) Sodium Level 133 mmol/L (136-145) Potassium Level 5.1 mmol/L (3.5-5.1) Chloride Level 100 mmol/L (98-107) Carbon Dioxide Level 21 mmol/L (21-32) Anion Gap 12 (6-14) Blood Urea Nitrogen 24 mg/dL (8-26) Creatinine 2.1 mg/dL (0.7-1.3) Estimated GFR (Cockcroft-Gault) 43.0 BUN/Creatinine Ratio 11 (6-20) Glucose Level 104 mg/dL (70-99) Calcium Level 8.5 mg/dL (8.5-10.1) Total Bilirubin 1.5 mg/dL (0.2-1.0) Aspartate Amino Transf (AST/SGOT) 41 U/L (15-37) Alanine Aminotransferase (ALT/SGPT) 19 U/L (16-63) Alkaline Phosphatase 367 U/L (46-116) Troponin I Quantitative < 0.017 ng/mL (0.000-0.055) Total Protein 6.9 g/dL (6.4-8.2) Albumin 2.2 g/dL (3.4-5.0) Albumin/Globulin Ratio 0.5 (1.0-1.7) Laboratory Tests Test 10/06/16 13:40 10/06/16 14:22 10/06/16 17:50 10/06/16 19:00 White Blood Count 11.6 x10^3/uL (4.0-11.0) Red Blood Count 2.58 x10^6/uL (4.30-5.70) Hemoglobin 7.9 g/dL (13.0-17.5) Hematocrit 24.3 % (39.0-53.0) Mean Corpuscular Volume 94 fL (79-100) Mean Corpuscular Hemoglobin 31 pg (25-35) Mean Corpuscular Hemoglobin Concent 33 g/dL (31-37) Red Cell Distribution Width 16.8 % (11.5-14.5) Platelet Count 171 x10^3/uL (140-400) Neutrophils (%) (Auto) 58 % (31-73) Lymphocytes (%) (Auto) 17 % (24-48) Monocytes (%) (Auto) 22 % (0-9) Eosinophils (%) (Auto) 2 % (0-3) Basophils (%) (Auto) 1 % (0-3) Neutrophils # (Auto) 6.8 x10^3uL (1.8-7.7) Lymphocytes # (Auto) 2.0 x10^3/uL (1.0-4.8) Monocytes # (Auto) 2.5 x10^3/uL (0.0-1.1) Eosinophils # (Auto) 0.2 x10^3/uL (0.0-0.7) Basophils # (Auto) 0.2 x10^3/uL (0.0-0.2) Segmented Neutrophils % 58 % (35-66) Band Neutrophils % 1 % (0-9) Lymphocytes % 20 % (24-48) Monocytes % 14 % (0-10) Eosinophils % 3 % (0-5) Basophils % 4 % (0-3) Platelet Estimate Adequate (ADEQUATE) Polychromasia Slight Sodium Level 129 mmol/L (136-145) Potassium Level 4.9 mmol/L (3.5-5.1) Chloride Level 96 mmol/L (98-107) Carbon Dioxide Level 18 mmol/L (21-32) Anion Gap 15 (6-14) Blood Urea Nitrogen 23 mg/dL (8-26) Creatinine 2.1 mg/dL (0.7-1.3) Estimated GFR (Cockcroft-Gault) 43.0 BUN/Creatinine Ratio 11 (6-20) Glucose Level 95 mg/dL (70-99) Calcium Level 8.6 mg/dL (8.5-10.1) Total Bilirubin 1.5 mg/dL (0.2-1.0) Aspartate Amino Transf (AST/SGOT) 43 U/L (15-37) Alanine Aminotransferase (ALT/SGPT) 20 U/L (16-63) Alkaline Phosphatase 384 U/L (46-116) Troponin I Quantitative < 0.017 ng/mL (0.000-0.055) < 0.017 ng/mL (0.000-0.055) GA-Vrj-B-Type Natriuretic Peptide 2348 pg/mL (0-124) Total Protein 7.5 g/dL (6.4-8.2) Albumin 2.3 g/dL (3.4-5.0) Albumin/Globulin Ratio 0.4 (1.0-1.7) Urine Collection Type Unknown Urine Color Dk yellow Urine Clarity Clear Urine pH 5.0 Urine Specific [place] 1.015 Urine Protein 30 mg/dL (NEG-TRACE) Urine Glucose (UA) Negative mg/dL (NEG) Urine Ketones (Stick) Trace mg/dL (NEG) Urine Blood Small (NEG) Urine Nitrite Negative (NEG) Urine Bilirubin Small (NEG) Urine Urobilinogen Dipstick 1.0 mg/dL (0.2 mg/dL) Urine Leukocyte Esterase Small (NEG) Urine RBC 1-2 /HPF (0-2) Urine WBC 1-4 /HPF (0-4) Urine Squamous Epithelial Cells Few /LPF Urine Bacteria Few /HPF (0-FEW) Urine Hyaline Casts Many /HPF Urine Mucus Mod /LPF Urine Sperm Present /HPF Urine Opiates Screen Neg (NEG) Urine Methadone Screen Neg (NEG) Urine Barbiturates Neg (NEG) Urine Phencyclidine Screen Neg (NEG) Urine Amphetamine/Methamphetamine Neg (NEG) Urine Benzodiazepines Screen Neg (NEG) Urine Cocaine Screen Neg (NEG) Urine Cannabinoids Screen Neg (NEG) Urine Ethyl Alcohol Neg (NEG) Test 10/07/16 01:00 White Blood Count 10.3 x10^3/uL (4.0-11.0) Red Blood Count 2.48 x10^6/uL (4.30-5.70) Hemoglobin 7.6 g/dL (13.0-17.5) Hematocrit 23.1 % (39.0-53.0) Mean Corpuscular Volume 93 fL (79-100) Mean Corpuscular Hemoglobin 31 pg (25-35) Mean Corpuscular Hemoglobin Concent 33 g/dL (31-37) Red Cell Distribution Width 16.8 % (11.5-14.5) Platelet Count 163 x10^3/uL (140-400) Neutrophils (%) (Auto) 61 % (31-73) Lymphocytes (%) (Auto) 17 % (24-48) Monocytes (%) (Auto) 18 % (0-9) Eosinophils (%) (Auto) 3 % (0-3) Basophils (%) (Auto) 1 % (0-3) Neutrophils # (Auto) 6.3 x10^3uL (1.8-7.7) Lymphocytes # (Auto) 1.7 x10^3/uL (1.0-4.8) Monocytes # (Auto) 1.8 x10^3/uL (0.0-1.1) Eosinophils # (Auto) 0.3 x10^3/uL (0.0-0.7) Basophils # (Auto) 0.1 x10^3/uL (0.0-0.2) Prothrombin Time 33.9 SEC (11.7-14.0) Prothromb Time International Ratio 3.6 (0.8-1.1) Sodium Level 133 mmol/L (136-145) Potassium Level 5.1 mmol/L (3.5-5.1) Chloride Level 100 mmol/L (98-107) Carbon Dioxide Level 21 mmol/L (21-32) Anion Gap 12 (6-14) Blood Urea Nitrogen 24 mg/dL (8-26) Creatinine 2.1 mg/dL (0.7-1.3) Estimated GFR (Cockcroft-Gault) 43.0 BUN/Creatinine Ratio 11 (6-20) Glucose Level 104 mg/dL (70-99) Calcium Level 8.5 mg/dL (8.5-10.1) Total Bilirubin 1.5 mg/dL (0.2-1.0) Aspartate Amino Transf (AST/SGOT) 41 U/L (15-37) Alanine Aminotransferase (ALT/SGPT) 19 U/L (16-63) Alkaline Phosphatase 367 U/L (46-116) Troponin I Quantitative < 0.017 ng/mL (0.000-0.055) Total Protein 6.9 g/dL (6.4-8.2) Albumin 2.2 g/dL (3.4-5.0) Albumin/Globulin Ratio 0.5 (1.0-1.7) LIZBET PEARL MD October 07, 2016 11:28
[2016-10-07] MEDS ORDERED: MAGNESIUM SULFATE 2GM 50 ML IV PRN (11:45)
[2016-10-07 12:51] LABS: % SAT IRON 12 % (15-34); IRON,SERUM 24 ug/dL (65-175)
[2016-10-07 13:04] LABS: URIC ACID 15.5 mg/dL (3.5-7.2)
--- NOTE | 2016-10-07 13:29 | RAD ---
Examination: Ultrasound kidneys History: History of acute renal failure Comparison: None available Findings: The right kidney measures 12.2 x 6.0 x 5.3 cm. The left kidney is not identified due to bowel gas. The gallbladder is not distended. Impression: Examination limited due to body habitus and due to bowel gas. The left kidney is not identified. The visualized right kidney grossly appears unremarkable.
[2016-10-07 15:00] VITALS: BP 97/52
--- NOTE | 2016-10-07 16:23 | PDOC ---
Provider Note Provider Note Hem-Onc consult: 1. Elevated free light chains due to CKD. No evidence of myeloma or amyloidosis. See dictation [id number] MANNY ECKERT MD October 07, 2016 16:23
[2016-10-07 19:59] VITALS: BP 117/48
[2016-10-07] MEDS: ATORVASTATIN CALCIUM 10 MG TABLET. PO SCH (22:02)
[2016-10-07 22:32] VITALS: BP 97/41
[2016-10-08] MEDS: chlordiazePOXIDE HCL 25 MG CAPSULE PO SCH (00:18)
--- NOTE | 2016-10-08 01:33 | CONS ---
DATE OF CONSULTATION: HISTORY OF PRESENT ILLNESS: The patient is a 36-year-old -Citizen Of [place] gentleman with known schizophrenia. He was also found to have underlying CKD with a baseline creatinine of 1.3-1.5. He is also known to have a history of severe alcoholism as well as fatty liver as noted on imaging studies. He presented to the ER with complaints of shortness of breath and increasing lower extremity edema. This has been worsening over the last few weeks. He does not admit to watching his salt intake pretty closely, NOT INVOLVED. Denies current chest pain, but had some shortness of breath. He denies cough, phlegm, or sputum production currently. He apparently takes his Lasix on a regular basis and initially had lost weight and was doing well, but this appears to have recurred based on his reports. Kidney that was imaged on abdominal sonogram previously was felt to be unremarkable. A formal renal ultrasound was not done then and will be ordered at this visit. He has had an echocardiogram done on his previous hospitalization, but it was a difficult study, presumably due to his body habitus. In this setting, we were asked to see him for further evaluation of his creatinine that has gone up to current levels of 2.1. He is noted to be somewhat hypotensive. He did have some metabolic acidosis at presentation, which has improved. He is also noted to be significantly anemic at 7.6. He is scheduled to see an oncologist in the near future. He had a low grade fever at 99 with blood pressures of 90/52 currently. Lasix has been ordered given his abnormal chest x-ray and subjective shortness of breath. For rest of details, see electronic records. LIZBET PEARL MD DR: NATHALIE/svitlana JOB#: [id number] / [id number]
--- NOTE | 2016-10-08 02:06 | CONS ---
DATE OF CONSULTATION: 10/07/2016 MEDICAL ONCOLOGY CONSULTATION REPORT REQUESTING PHYSICIAN: Dr. Rishabh Burroughs. REASON FOR CONSULTATION: Elevated free light chains and to evaluate for multiple myeloma. HISTORY OF PRESENT ILLNESS: The patient is a 36-year-old -[place] gentleman who presented to [facility] on 10/06/2016 with worsening swelling in his lower extremities and abdomen and worsening shortness of breath. He denies any chest pain. He has had an occasional cough. He has had a history of pneumonia. He did not have any fever or productive cough at the time of admission. He also has a history of congestive heart failure and has been taking Lasix. He also drinks alcohol, a pint of gin and a 6-pack of beer daily. He has a history of fatty liver disease. He also has a history of chronic kidney disease stage 3 and Nephrology has been consulted. His creatinine at the time of admission on 10/06/2016 was 2.1. He was noted to have elevated free light chains on 09/15/2016. His free kappa light chain was 81.99 and free lambda light chain was 50.80 and his kappa-lambda light chain ratio was normal at 1.61. His creatinine was 1.4 at that time. I was asked to see the patient for evaluation and management of elevated free light chains and evaluate for possible multiple myeloma. The patient has been seen by Dr. Laura Ferrari and workup for multiple myeloma/amyloidosis has been negative. PAST MEDICAL HISTORY: Congestive heart failure, hypertension, hyperlipidemia, fatty liver disease, schizophrenia, tobaccoism, ETOH abuse, peptic ulcer disease, GERD, depression, back pain. FAMILY HISTORY: Positive for heart disease, hypertension and migraines. SOCIAL HISTORY: He does smoke 1 pack of cigarettes per day and he has a history of heavy alcohol use. I have advised him to quit smoking and alcohol. REVIEW OF SYSTEMS: A 12-point review of systems was performed. Pertinent positives are mentioned in the history of present illness. Rest of the system review is negative. PHYSICAL EXAMINATION: GENERAL APPEARANCE: The patient is a 36-year-old -[place] gentleman who appears overweight and in no acute cardiorespiratory distress. VITAL SIGNS: Blood pressure 103/51, temperature 98.5. HEENT: Atraumatic, normocephalic. Eyes: No icterus. NECK: Supple. CHEST: Bilaterally symmetrical. HEART: S1, S2 normal. ABDOMEN: Soft, nontender. CENTRAL NERVOUS SYSTEM: Alert, awake and oriented x 3. LYMPHATICS: No lymphadenopathy. SKIN: He has hyperpigmentation in the lower extremities. MUSCULOSKELETAL: He has pedal edema bilaterally. LABORATORY DATA: WBC 10.3, hemoglobin 7.6, MCV 93, platelet count 163, reticulocyte count 1.3. Iron 24, TIBC 198, iron saturation 12, ferritin 87. IMPRESSION AND PLAN: 1. Elevated free light chains. This was noted on 09/15/2016 and the etiology is thought to be due to chronic kidney disease. Both the kappa and lambda light chains are elevated with a normal ratio. Hence, this is not indicative of a primary bone marrow disorder. His serum protein electrophoresis was normal. Immunofixation studies did not reveal any evidence of monoclonal proteins. Hence, no further workup is necessary. 2. Normochromic normocytic anemia. The iron studies are suggestive of anemia due to chronic disease and in his situation, I suspect is due to chronic kidney disease and his comorbidities. I would recommend to continue to monitor hemoglobin and transfuse as needed. There is no evidence of a primary bone marrow disorder clinically. He does have history of alcoholism and I have recommended to discontinue alcohol. 3. Chronic diastolic heart failure, management per Cardiology. 4. Hepatomegaly with hepatic steatosis. 5. Morbid obesity. 6. Alcohol abuse and I have recommended to quit alcohol. I discussed with Dr. Rishabh Burroughs. MANNY ECKERT MD DR: LOUISA/svitlana JOB#: [id number] / [id number] GILLES
[2016-10-08 03:48] VITALS: BP 94/44
[2016-10-08 04:32] LABS: INR 4.1 (0.8-1.1); PROTHROMBIN TIME PATIENT 37.4 SEC (11.7-14.0)
[2016-10-08 04:49] LABS: ALBUMIN 2.1 g/dL (3.4-5.0); ALBUMIN/GLOBULIN RATIO 0.4 (1.0-1.7); CALCIUM 8.5 mg/dL (8.5-10.1); CREATININE 2.5 mg/dL (0.7-1.3); GFR 35.1; MAGNESIUM 1.9 mg/dL (1.8-2.4); PHOSPHORUS 3.8 mg/dL (2.6-4.7); POTASSIUM 4.6 mmol/L (3.5-5.1); TOTAL BILIRUBIN 1.2 mg/dL (0.2-1.0); TOTAL PROTEIN 6.8 g/dL (6.4-8.2)
[2016-10-08 07:00] VITALS: BP 96/42
[2016-10-08] MEDS: VITAMIN B12,B9,B6 COMPLEX 1 TABLET. PO SCH (09:14)
[2016-10-08] MEDS: buPROPion 100 MG TABLET PO SCH ×2 (09:14→21:07)
[2016-10-08] MEDS: MAGNESIUM OXIDE 400 MG TABLET PO SCH (09:14)
[2016-10-08] MEDS: THIAMINE 100 MG TABLET. PO SCH (09:14)
[2016-10-08] MEDS: PANTOPRAZOLE 40 MG TABLET.DR. PO SCH (09:15)
[2016-10-08] MEDS: NICOTINE 21MG PATCH. TD SCH (09:17)
[2016-10-08] MEDS: HALOPERIDOL 5 MG TABLET. PO SCH (09:17)
[2016-10-08] MEDS: FUROSEMIDE 40 MG/4 ML VIAL. IVP SCH (09:17)
[2016-10-08 11:00] VITALS: BP 101/42
--- NOTE | 2016-10-08 12:02 | PDOC ---
PALOMA SMITH GAS METER MECHANIC 10/08/16 1202: CARDIO Progress Notes Date and Time Date of Service 10/08/16 Time of Evaluation 1105 Subjective Subjective: No Chest Pain, No Palpitations, Other (sleepy, LE/abdominal edema persists along with mild SOA) Vitals Vitals Vital Signs Date Time Temp Pulse Resp B/P (MAP) Pulse Ox O2 Delivery O2 Flow Rate FiO2 10/08/16 07:00 98.2 86 20 96/42 (60) 96 Room Air 98.2 Weight Weight [ ] Input and Output Intake and Output Intake and Output 10/08/16 07:00 Intake Total 900 ml Output Total 450 ml Balance 450 ml Intake Oral 900 ml Output Urine Total 450 ml # Voids 1 # Bowel Movements 2 Laboratory Labs Laboratory Tests Test 10/07/16 12:10 10/08/16 03:05 Reticulocyte Count (auto) 1.3 % (0.5-2.5) Uric Acid 15.5 mg/dL (3.5-7.2) Iron Level 24 ug/dL (65-175) Total Iron Binding Capacity 198 ug/dL (250-450) Iron Saturation 12 % (15-34) Ferritin 87 ng/mL (26-388) Creatine Kinase 113 U/L (39-308) Hemoglobin 7.2 g/dL (13.0-17.5) Prothrombin Time 37.4 SEC (11.7-14.0) Prothromb Time International Ratio 4.1 (0.8-1.1) Sodium Level 135 mmol/L (136-145) Potassium Level 4.6 mmol/L (3.5-5.1) Chloride Level 101 mmol/L (98-107) Carbon Dioxide Level 22 mmol/L (21-32) Anion Gap 12 (6-14) Blood Urea Nitrogen 26 mg/dL (8-26) Creatinine 2.5 mg/dL (0.7-1.3) Estimated GFR (Cockcroft-Gault) 35.1 BUN/Creatinine Ratio 10 (6-20) Glucose Level 102 mg/dL (70-99) Calcium Level 8.5 mg/dL (8.5-10.1) Phosphorus Level 3.8 mg/dL (2.6-4.7) Magnesium Level 1.9 mg/dL (1.8-2.4) Total Bilirubin 1.2 mg/dL (0.2-1.0) Aspartate Amino Transf (AST/SGOT) 37 U/L (15-37) Alanine Aminotransferase (ALT/SGPT) 16 U/L (16-63) Alkaline Phosphatase 343 U/L (46-116) Total Protein 6.8 g/dL (6.4-8.2) Albumin 2.1 g/dL (3.4-5.0) Albumin/Globulin Ratio 0.4 (1.0-1.7) Microbiology Micro Microbiology 10/06/16 Urine Culture - Preliminary, Resulted 10/06/16 Urine Culture Result 1 (MARIUSZ) - Preliminary, Resulted Physical Exam HEENT: Neck Supple W Full Motion Chest: Symmetric LUNGS: Other (diminished ) Heart: S1S2, RRR, murmurs (2/6 systolic murmur ) Abdomen: Other (obese, firm, ascites ) Extremities: Other (significant bi LE edema ) Neurology: alert, oriented, follow commands, other (drowsy ) Assessment Assessment 1. Acute on chronic diastolic heart failure recent echo revealed normal LV function, PAP 39; technically difficult study due to body habitus. CR now 2.4; diuresis on hold. 1500cc FR. 2 Gm Na restriction. Discussed important of dietary compliance and ETOH cessation; patient seems uninterested. 2. Acute on chronic respiratory failure multifactorial given morbid obesity/hypoventilation syndrome, diastolic HF, and likely COPD/ANNA. ? liver disease improved with diuresis per pulm 3. Hypertension now low-normotensice hold home antiHTN therapy for now 4. Normocytic anemia with coagulopathy (INR 4.1): Hgb 7.2 liver disease? with underlying ETOHism. GI evaluation? 5. DAMION with CKD baseline near 1.5; now 2.5 per nephrology 6. Chronic alcoholism monitor for withdrawal encouraged cessation 7. Morbid obesity lifestyle/diet modification discussed/encouraged 8. Anxiety/depression/schizophrenia MARANDA GAMINO MD 10/08/162053: CARDIO Progress Notes Assessment Assessment Patient seen and examined. Agree with ANVIL SEATING PRESS OPERATOR's assessment and plan. Acute on chronic diastolic heart failure better compensated Diuretics on hold for renal insuff - nephrology following PALOMA SMITH APRN October 08, 2016 12:02 MARANDA GAMINO MD October 08, 2016 20:54
--- NOTE | 2016-10-08 13:10 | PDOC ---
SUBJECTIVE ROS DAMION Doing a little better today CVS: no Orthopnea, no CP RESP: min SOB, no KAYE GI: no Nausea, no Vomiting : no Dysuria, no Urgency OBJECTIVE Vital Signs Vital Signs Date Time Temp Pulse Resp B/P (MAP) Pulse Ox O2 Delivery O2 Flow Rate FiO2 10/08/16 11:00 98.6 90 28 101/42 (61) 95 Room Air 98.6 I & 0 Intake and Output 10/08/16 07:00 Intake Total 900 ml Output Total 450 ml Balance 450 ml Intake Oral 900 ml Output Urine Total 450 ml # Voids 1 # Bowel Movements 2 PHYSICAL EXAM Physical Exam General Appearance: Awake Alert Oriented x 2-3 In no Distress; morbidly obese Eyes: VIsion Unchanged Conjunctiva min left erythema EN: No EN Drainage Mucous Memb. mosit Neck: no JVD no JVP Supple no Thyromegaly; thick neck CVS: S1 S2 no Murmur No Gallop No Rub + Edema Resp: no Rales no Rhonchi no Acc. Muscle use; distal BS GI: BS +ve NO Bruit Non Tender Morbidly obese : no CVA tenderness; no Suprapubic Tenderness Assessment & Plan DAMION - suspect due to Low BP (VMN) vs pre-renal from HRS, (UA with Hyaline casts) - will hold lasix, pt remains Oliguric as documented in I/Os (if reliable ) Current FLuid and E-lyte status does not necessitate emergent need for Dialysis. NO IVF for now until cardiac status is clarified. Hold Lasix due to ^ ed Creat - not in Resp distress currently CKD III - creat of 1.5 cannot be ruled out. Edema - ? Liver etio related min currenlty to my exam - may need RHC for accurate pressure eval Coagulopahty - suspect liver etio - consider GI eval. PO Vit K to see if it corrects HypoTN: Current BP meds reviewed and some held - defer to cardiology ? diastolic CHF Exac - ABN CXR ntoed with ^ ed BNP ^ Protein gap - ruled out Paraproteinuria on previous PEPs - appreciate Dr Small 's input. Aenmia - check Iron - ? asso with Liver ABN, previous GI losses noted HypoAlb - checking Pre-Alb - ? due to decreased Hepatic synthesis ? D/w Cardiology HISTOLOGIC TECHNICIAN COMMENT/RELEVANT DATA Meds Current Medications Medications (Trade) Dose Ordered Sig/Jarrett Start Time Stop Time Status Last Admin Dose Admin Amlodipine Besylate (Norvasc) 5 mg DAILY 10/07/16 09:00 10/07/16 09:37 DC Atorvastatin Calcium (Lipitor) 5 mg QHS 10/06/16 21:00 10/07/16 22:02 5 MG Bupropion HCl (Wellbutrin) 100 mg BID 10/06/16 21:00 10/08/16 09:14 100 MG Chlordiazepoxide (Librium) 25 mg Q6HRS 10/06/16 17:00 10/08/16 00:01 DC 10/08/16 00:18 25 MG Furosemide (Lasix) 80 mg DAILY08 10/07/16 08:00 10/08/16 09:17 80 MG Haloperidol (Haldol) 5 mg DAILY 10/07/16 09:00 10/08/16 09:17 5 MG Lorazepam (Ativan) 4 mg PRN Q1HR PRN 10/06/16 21:30 Magnesium Oxide (Magnesium Oxide) 400 mg DAILY 10/07/16 09:00 10/08/16 09:14 400 MG Magnesium Sulfate/ Dextrose 50 ml @ 25 mls/hr PRN DAILY PRN 10/07/16 11:45 Morphine Sulfate 4 mg PRN Q2HR PRN 10/06/16 16:45 10/07/16 16:44 DC Multivitamins 10 ml/Thiamine HCl 100 mg/Folic Acid 1 mg/Sodium Chloride 1,011.2 ml @ 100 mls/ hr DAILY 10/06/16 17:00 10/06/16 21:37 DC 10/06/16 18:27 100 MLS/HR Nicotine (Nicoderm Cq 21mg) 1 patch DAILY 10/07/16 09:00 10/08/16 09:17 1 PATCH Nitroglycerin (Nitrostat) 0.4 mg PRN Q5MIN PRN 10/06/16 16:45 10/07/16 16:44 DC Ondansetron HCl (Zofran) 4 mg PRN Q8HRS PRN 10/06/16 16:45 10/07/16 16:44 DC Pantoprazole Sodium (Protonix) 40 mg DAILYAC 10/07/16 07:30 10/08/16 09:15 40 MG Thiamine Mononitrate (Vitamin B-1) 100 mg DAILY 10/06/16 21:45 10/08/16 09:14 100 MG Vitamin B Complex (Folbic Tablet) 1 tab DAILY 10/07/16 09:00 10/08/16 09:14 1 TAB Lab Laboratory Tests Test 10/08/16 03:05 Hemoglobin 7.2 g/dL (13.0-17.5) Prothrombin Time 37.4 SEC (11.7-14.0) Prothromb Time International Ratio 4.1 (0.8-1.1) Sodium Level 135 mmol/L (136-145) Potassium Level 4.6 mmol/L (3.5-5.1) Chloride Level 101 mmol/L (98-107) Carbon Dioxide Level 22 mmol/L (21-32) Anion Gap 12 (6-14) Blood Urea Nitrogen 26 mg/dL (8-26) Creatinine 2.5 mg/dL (0.7-1.3) Estimated GFR (Cockcroft-Gault) 35.1 BUN/Creatinine Ratio 10 (6-20) Glucose Level 102 mg/dL (70-99) Calcium Level 8.5 mg/dL (8.5-10.1) Phosphorus Level 3.8 mg/dL (2.6-4.7) Magnesium Level 1.9 mg/dL (1.8-2.4) Total Bilirubin 1.2 mg/dL (0.2-1.0) Aspartate Amino Transf (AST/SGOT) 37 U/L (15-37) Alanine Aminotransferase (ALT/SGPT) 16 U/L (16-63) Alkaline Phosphatase 343 U/L (46-116) Total Protein 6.8 g/dL (6.4-8.2) Albumin 2.1 g/dL (3.4-5.0) Albumin/Globulin Ratio 0.4 (1.0-1.7) LIZBET PEARL MD October 08, 2016 13:10
[2016-10-08] MEDS ORDERED: PHYTONADIONE (VIT K1) 5 MG TABLET PO ONE (14:00)
[2016-10-08 15:00] VITALS: BP 115/50
[2016-10-08 16:19] LABS: TOTAL PROTEIN CREATININE RATIO 107 mg/g creat (0-200); UR PROTEIN RD 24.4 mg/dL (Not Estab.)
--- NOTE | 2016-10-08 16:55 | PDOC ---
PROGRESS NOTES Chief Complaint Chief Complaint cc: sob A/P 1. Acute and chronic diastolic heart failure: holding diuresis, monitor electrolytes and worsening renal functions. 2. Chronic respiratory failure: Possible Obesity hypoventilation. 3. Hypertension: stable. 4. Normocytic anemia with coagulopathy, : ? alcoholic cirrhosis, mild elevation of LFTS, consult GI, CT abdomen pending. 5. DAMION with CKD: possible due to VMN, holding diuresis, 6. Elevated lyte chains:d/w oncology, likely due to CKD 7. Chronic alcoholism: CIWA Protocol, 8. Morbid obesity 9. Anxiety/depression/schizophrenia: Stable 10. Physical debility: PT/OT History of Present Illness History of Present Illness sob better no fever no chills no bleeding. Vitals Vitals Vital Signs Date Time Temp Pulse Resp B/P (MAP) Pulse Ox O2 Delivery O2 Flow Rate FiO2 10/08/16 15:00 98.4 90 32 115/50 (71) 95 Room Air 98.4 Physical Exam General: Alert, Oriented X3, No acute distress, Other Heart: Normal S1, Normal S2 Lungs: Wheezing Abdomen: Normal bowel sounds (very obese, not tender, edema to abd) Extremities: No clubbing, Other (3+ edema and anasarca, chronic LE sclerosis from prior edema) Skin: No rashes, No breakdown, No significant lesion Labs LABS Laboratory Tests Test 10/07/16 23:30 10/08/16 03:05 Urine Protein 24.4 mg/dL (Not Estab.) Urine Creatinine 227.3 mg/dL (Not Estab.) Urine Protein/Creatinine Ratio 107 mg/g creat (0-200) Hemoglobin 7.2 g/dL (13.0-17.5) Prothrombin Time 37.4 SEC (11.7-14.0) Prothromb Time International Ratio 4.1 (0.8-1.1) Sodium Level 135 mmol/L (136-145) Potassium Level 4.6 mmol/L (3.5-5.1) Chloride Level 101 mmol/L (98-107) Carbon Dioxide Level 22 mmol/L (21-32) Anion Gap 12 (6-14) Blood Urea Nitrogen 26 mg/dL (8-26) Creatinine 2.5 mg/dL (0.7-1.3) Estimated GFR (Cockcroft-Gault) 35.1 BUN/Creatinine Ratio 10 (6-20) Glucose Level 102 mg/dL (70-99) Calcium Level 8.5 mg/dL (8.5-10.1) Phosphorus Level 3.8 mg/dL (2.6-4.7) Magnesium Level 1.9 mg/dL (1.8-2.4) Total Bilirubin 1.2 mg/dL (0.2-1.0) Aspartate Amino Transf (AST/SGOT) 37 U/L (15-37) Alanine Aminotransferase (ALT/SGPT) 16 U/L (16-63) Alkaline Phosphatase 343 U/L (46-116) Total Protein 6.8 g/dL (6.4-8.2) Albumin 2.1 g/dL (3.4-5.0) Albumin/Globulin Ratio 0.4 (1.0-1.7) Assessment and Plan Assessmemt and Plan Problems Medical Problems: (1) Alcohol abuse Status: Acute (2) Anasarca Status: Acute (3) Congestive heart failure Status: Acute Problems: Comment Review of Relevant I have reviewed the following items maci (where applicable) has been applied. Labs Laboratory Tests Test 10/06/16 17:50 10/06/16 19:00 10/07/16 01:00 10/07/16 12:10 Urine Opiates Screen Neg (NEG) Urine Methadone Screen Neg (NEG) Urine Barbiturates Neg (NEG) Urine Phencyclidine Screen Neg (NEG) Urine Amphetamine/Methamphetamine Neg (NEG) Urine Benzodiazepines Screen Neg (NEG) Urine Cocaine Screen Neg (NEG) Urine Cannabinoids Screen Neg (NEG) Urine Ethyl Alcohol Neg (NEG) Troponin I Quantitative < 0.017 ng/mL (0.000-0.055) < 0.017 ng/mL (0.000-0.055) White Blood Count 10.3 x10^3/uL (4.0-11.0) Red Blood Count 2.48 x10^6/uL (4.30-5.70) Hemoglobin 7.6 g/dL (13.0-17.5) Hematocrit 23.1 % (39.0-53.0) Mean Corpuscular Volume 93 fL (79-100) Mean Corpuscular Hemoglobin 31 pg (25-35) Mean Corpuscular Hemoglobin Concent 33 g/dL (31-37) Red Cell Distribution Width 16.8 % (11.5-14.5) Platelet Count 163 x10^3/uL (140-400) Neutrophils (%) (Auto) 61 % (31-73) Lymphocytes (%) (Auto) 17 % (24-48) Monocytes (%) (Auto) 18 % (0-9) Eosinophils (%) (Auto) 3 % (0-3) Basophils (%) (Auto) 1 % (0-3) Neutrophils # (Auto) 6.3 x10^3uL (1.8-7.7) Lymphocytes # (Auto) 1.7 x10^3/uL (1.0-4.8) Monocytes # (Auto) 1.8 x10^3/uL (0.0-1.1) Eosinophils # (Auto) 0.3 x10^3/uL (0.0-0.7) Basophils # (Auto) 0.1 x10^3/uL (0.0-0.2) Prothrombin Time 33.9 SEC (11.7-14.0) Prothromb Time International Ratio 3.6 (0.8-1.1) Sodium Level 133 mmol/L (136-145) Potassium Level 5.1 mmol/L (3.5-5.1) Chloride Level 100 mmol/L (98-107) Carbon Dioxide Level 21 mmol/L (21-32) Anion Gap 12 (6-14) Blood Urea Nitrogen 24 mg/dL (8-26) Creatinine 2.1 mg/dL (0.7-1.3) Estimated GFR (Cockcroft-Gault) 43.0 BUN/Creatinine Ratio 11 (6-20) Glucose Level 104 mg/dL (70-99) Calcium Level 8.5 mg/dL (8.5-10.1) Total Bilirubin 1.5 mg/dL (0.2-1.0) Aspartate Amino Transf (AST/SGOT) 41 U/L (15-37) Alanine Aminotransferase (ALT/SGPT) 19 U/L (16-63) Alkaline Phosphatase 367 U/L (46-116) Total Protein 6.9 g/dL (6.4-8.2) Albumin 2.2 g/dL (3.4-5.0) Albumin/Globulin Ratio 0.5 (1.0-1.7) Reticulocyte Count (auto) 1.3 % (0.5-2.5) Uric Acid 15.5 mg/dL (3.5-7.2) Iron Level 24 ug/dL (65-175) Total Iron Binding Capacity 198 ug/dL (250-450) Iron Saturation 12 % (15-34) Ferritin 87 ng/mL (26-388) Creatine Kinase 113 U/L (39-308) Test 10/07/16 23:30 10/08/16 03:05 Urine Protein 24.4 mg/dL (Not Estab.) Urine Creatinine 227.3 mg/dL (Not Estab.) Urine Protein/Creatinine Ratio 107 mg/g creat (0-200) Hemoglobin 7.2 g/dL (13.0-17.5) Prothrombin Time 37.4 SEC (11.7-14.0) Prothromb Time International Ratio 4.1 (0.8-1.1) Sodium Level 135 mmol/L (136-145) Potassium Level 4.6 mmol/L (3.5-5.1) Chloride Level 101 mmol/L (98-107) Carbon Dioxide Level 22 mmol/L (21-32) Anion Gap 12 (6-14) Blood Urea Nitrogen 26 mg/dL (8-26) Creatinine 2.5 mg/dL (0.7-1.3) Estimated GFR (Cockcroft-Gault) 35.1 BUN/Creatinine Ratio 10 (6-20) Glucose Level 102 mg/dL (70-99) Calcium Level 8.5 mg/dL (8.5-10.1) Phosphorus Level 3.8 mg/dL (2.6-4.7) Magnesium Level 1.9 mg/dL (1.8-2.4) Total Bilirubin 1.2 mg/dL (0.2-1.0) Aspartate Amino Transf (AST/SGOT) 37 U/L (15-37) Alanine Aminotransferase (ALT/SGPT) 16 U/L (16-63) Alkaline Phosphatase 343 U/L (46-116) Total Protein 6.8 g/dL (6.4-8.2) Albumin 2.1 g/dL (3.4-5.0) Albumin/Globulin Ratio 0.4 (1.0-1.7) Laboratory Tests Test 10/07/16 23:30 10/08/16 03:05 Urine Protein 24.4 mg/dL (Not Estab.) Urine Creatinine 227.3 mg/dL (Not Estab.) Urine Protein/Creatinine Ratio 107 mg/g creat (0-200) Hemoglobin 7.2 g/dL (13.0-17.5) Prothrombin Time 37.4 SEC (11.7-14.0) Prothromb Time International Ratio 4.1 (0.8-1.1) Sodium Level 135 mmol/L (136-145) Potassium Level 4.6 mmol/L (3.5-5.1) Chloride Level 101 mmol/L (98-107) Carbon Dioxide Level 22 mmol/L (21-32) Anion Gap 12 (6-14) Blood Urea Nitrogen 26 mg/dL (8-26) Creatinine 2.5 mg/dL (0.7-1.3) Estimated GFR (Cockcroft-Gault) 35.1 BUN/Creatinine Ratio 10 (6-20) Glucose Level 102 mg/dL (70-99) Calcium Level 8.5 mg/dL (8.5-10.1) Phosphorus Level 3.8 mg/dL (2.6-4.7) Magnesium Level 1.9 mg/dL (1.8-2.4) Total Bilirubin 1.2 mg/dL (0.2-1.0) Aspartate Amino Transf (AST/SGOT) 37 U/L (15-37) Alanine Aminotransferase (ALT/SGPT) 16 U/L (16-63) Alkaline Phosphatase 343 U/L (46-116) Total Protein 6.8 g/dL (6.4-8.2) Albumin 2.1 g/dL (3.4-5.0) Albumin/Globulin Ratio 0.4 (1.0-1.7) Microbiology 10/06/16 Urine Culture - Final, Complete 10/06/16 Urine Culture Result 1 (MARIUSZ) - Final, Complete Medications Current Medications Furosemide (Lasix) 80 mg 1X ONCE IVP Last administered on 10/06/16t 15:30; Start 10/06/16 at 15:30; Stop 10/06/16 at 15:31; Status DC Ondansetron HCl (Zofran) 4 mg PRN Q8HRS PRN IV NAUSEA/VOMITING; Start 10/06/16 at 16:45; Stop 10/07/16 at 16:44; Status DC Morphine Sulfate 4 mg PRN Q2HR PRN IV PAIN; Start 10/06/16 at 16:45; Stop 10/07 at 16:44; Status DC Nitroglycerin (Nitrostat) 0.4 mg PRN Q5MIN PRN SL CHEST PAIN; Start 10/06/16 at 16:45; Stop 10/07/16 at 16:44; Status DC Multivitamins 10 ml/Thiamine HCl 100 mg/Folic Acid 1 mg/Sodium Chloride 1,011.2 ml @ 100 mls/ hr DAILY IV Last administered on 10/06/16 18:27; Start at 17:00; Stop 10/06/16 at 21:37; Status DC Chlordiazepoxide (Librium) 25 mg Q6HRS PO Last administered on 10/08/16 00:18 ; Start 10/06/16 at 17:00; Stop 10/08/16 at 00:01; Status DC Nicotine (Nicoderm Cq 21mg) 1 patch DAILY TD Last administered on 10/08/16 09: 17; Start 10/07/16 at 09:00 Bupropion HCl (Wellbutrin) 100 mg BID PO Last administered on 10/08/16 09:14; Start 10/06/16 at 21:00 Furosemide (Lasix) 20 mg DAILY PO ; Start 10/07/16 at 09:00; Stop 10/07/16 at 09 :00; Status DC Haloperidol (Haldol) 5 mg DAILY PO Last administered on 10/08/16 09:17; Start 10/07/16 at 09:00 Magnesium Oxide (Magnesium Oxide) 400 mg DAILY PO Last administered on 09:14; Start 10/07/16 at 09:00 Pantoprazole Sodium (Protonix) 40 mg DAILYAC PO Last administered on 10/08/16 09:15; Start 10/07/16 at 07:30 Atorvastatin Calcium (Lipitor) 5 mg QHS PO Last administered on 10/07/16 22:02 ; Start 10/06/16 at 21:00 Amlodipine Besylate (Norvasc) 5 mg DAILY PO ; Start 10/07/16 at 09:00; Stop at 09:37; Status DC Lorazepam (Ativan) 2 mg PRN Q1HR PRN IV For CIWA 8-14; Start 10/06/16 at 21:30 Lorazepam (Ativan) 4 mg PRN Q1HR PRN IV For CIWA 15 or greater; Start 10/06/16 at 21:30 Thiamine Mononitrate (Vitamin B-1) 100 mg DAILY PO Last administered on 09:14; Start 10/06/16 at 21:45 Vitamin B Complex (Folbic Tablet) 1 tab DAILY PO Last administered on 09:14; Start 10/07/16 at 09:00 Furosemide (Lasix) 80 mg DAILY08 IVP Last administered on 10/08/16 09:17; Start 10/07/16 at 08:00; Stop 10/08/16 at 13:04; Status DC Magnesium Sulfate/ Dextrose 50 ml @ 25 mls/hr PRN DAILY PRN IV for Mag < 1.7 on am labs; Start 10/07/16 at 11:45 Phytonadione (Mephyton) 10 mg 1X ONCE PO Last administered on 10/08/16 14:04 ; Start 10/08/16 at 14:00; Stop 10/08/16 at 14:01; Status DC Active Scripts Active Lasix (Furosemide) 20 Mg Tablet 1 Tab PO DAILY Magnesium Oxide 400 Mg Tablet 1 Tab PO DAILY Reported Pravastatin Sodium 20 Mg Tablet 20 Mg PO DAILY Wellbutrin (Bupropion Hcl) 100 Mg Tablet Unknown Dose PO BID Haloperidol 2 Mg Tablet 5 Mg PO DAILY Prilosec (Omeprazole) 40 Mg Capsule.dr 40 Mg PO DAILY Exforge 5-160 Mg Tablet (Amlodipine/Valsartan) 1 Each Tablet Unknown Dose PO Vitals/I & O Vital Sign - Last 24 Hours 10/07/16 10/07/16 10/07/16 10/08/16 19:59 20:00 22:32 03:48 Temp 98.5 98.8 98.2 98.5 98.8 98.2 Pulse 87 91 89 Resp 20 20 22 B/P (MAP) 117/48 (71) 97/41 (59) 94/44 (61) Pulse Ox 97 97 95 O2 Delivery Room Air Room Air Room Air Room Air 10/08/16 10/08/16 10/08/16 10/08/16 07:00 08:10 11:00 15:00 Temp 98.2 98.6 98.4 98.2 98.6 98.4 Pulse 86 90 90 Resp 20 28 32 B/P (MAP) 96/42 (60) 101/42 (61) 115/50 (71) Pulse Ox 96 95 95 O2 Delivery Room Air Room Air Room Air Room Air Intake and Output 10/07/16 10/07/16 10/08/16 15:00 23:00 07:00 Intake Total 400 ml 500 ml Output Total 450 ml Balance -50 ml 500 ml TONI GIORDANO MD October 08, 2016 16:55
[2016-10-08] MEDS ORDERED: CONTRAST GIVEN MC PRN (17:15)
[2016-10-08] MEDS ORDERED: IOHEXOL 300 MG/ML 75 ML VIAL IV ONE (17:15)
[2016-10-08] MEDS ORDERED: IOHEXOL 240 MG/ML 50ML VIAL. PO ONE (17:15)
[2016-10-08 19:40] VITALS: BP 119/55
[2016-10-08] MEDS: ATORVASTATIN CALCIUM 10 MG TABLET. PO SCH (21:08)
--- NOTE | 2016-10-08 21:24 | RAD ---
PROCEDURE CT abdomen and pelvis without contrast dated 10/08/2016. HISTORY Cirrhosis. Fatty liver. TECHNIQUE Contiguous axial imaging of the abdomen and pelvis performed after the administration of oral contrast only.Exposure: One or more of the following individualized dose reduction techniques were utilized for this exam: 1. Automated exposure control. 2. Adjustment of the mA and/or kV according to patient size. 3. Use of iterative reconstruction technique. COMPARISON None. FINDINGS Limited images of the lung bases are grossly clear. Heart size moderately enlarged. No pleural or pericardial effusion. Small hiatal hernia. The liver is somewhat heterogeneous and nodular in contour. Evaluation for mass limited in the absence of IV contrast. Spleen is normal in size. Small amount of ascites throughout. Diffuse anasarca. There calcific stones at the gallbladder neck. The gutter gallbladder lumen is collapsed. Pancreas, adrenal glands and kidneys are unremarkable. No hydronephrosis. Under opacified GI tract normal in caliber and contour. No focal bowel wall thickening. Prominent umbilical hernia containing ascitic fluid. No adenopathy. Images of pelvis show nondistended urinary bladder. There are mildly enlarged bilateral inguinal lymph nodes, nonspecific. Bone windows show no acute findings. Multilevel spondylosis. IMPRESSION - Heterogeneous liver consistent with history of cirrhosis. - Small amount of ascites with diffuse anasarca. - Suspected cholelithiasis. - Small periumbilical ventral hernias containing ascitic fluid. - Mild bilateral inguinal lymphadenopathy, nonspecific. Electronically signed by: Leonel Martin (October 08, 2016 21:22:50)
[2016-10-08 23:48] VITALS: BP 125/59
[2016-10-09] VITALS (7 sets, daily range): BP systolic 97–155; BP diastolic 48–67
[2016-10-09 05:10] LABS: ALBUMIN 2.1 g/dL (3.4-5.0); CALCIUM 8.5 mg/dL (8.5-10.1); CREATININE 2.1 mg/dL (0.7-1.3); PHOSPHORUS 3.9 mg/dL (2.6-4.7); POTASSIUM 4.8 mmol/L (3.5-5.1)
[2016-10-09] MEDS ORDERED: MAGNESIUM SULFATE 2GM 50 ML IV ONE (08:00)
[2016-10-09 08:24] LABS: HEMATOCRIT 21.9 % (39.0-53.0); HEMOGLOBIN 7.4 g/dL (13.0-17.5); RED BLOOD COUNT 2.33 x10^6/uL (4.30-5.70); RED CELL DISTRIBUTION WIDTH 16.5 % (11.5-14.5); WHITE BLOOD COUNT 8.7 x10^3/uL (4.0-11.0)
[2016-10-09 08:26] LABS: INR 3.8 (0.8-1.1); PROTHROMBIN TIME PATIENT 35.5 SEC (11.7-14.0)
[2016-10-09] MEDS: buPROPion 100 MG TABLET PO SCH ×2 (09:43→20:52)
[2016-10-09] MEDS: MAGNESIUM OXIDE 400 MG TABLET PO SCH (09:43)
[2016-10-09] MEDS: HALOPERIDOL 5 MG TABLET. PO SCH (09:43)
[2016-10-09] MEDS: VITAMIN B12,B9,B6 COMPLEX 1 TABLET. PO SCH (09:43)
[2016-10-09] MEDS: THIAMINE 100 MG TABLET. PO SCH (09:43)
[2016-10-09] MEDS: PANTOPRAZOLE 40 MG TABLET.DR. PO SCH (09:44)
[2016-10-09] MEDS: NICOTINE 21MG PATCH. TD SCH (09:57)
--- NOTE | 2016-10-09 10:39 | PDOC ---
Renal-Progress Notes Subjective Notes Notes NONE History of Present Illness Hx of present illness NO CHANGE Vitals Vitals Vital Signs Date Time Temp Pulse Resp B/P (MAP) Pulse Ox O2 Delivery O2 Flow Rate FiO2 10/09/16 08:03 98.3 95 26 117/67 (84) 95 Room Air 98.3 Weight Weight [ ] I.O. Intake and Output Intake and Output 10/09/16 06:59 Intake Total 240 ml Output Total 1050 ml Balance -810 ml Intake Oral 240 ml Output Urine Total 1050 ml # Voids 4 # Bowel Movements 2 Labs Labs Laboratory Tests Test 10/08/16 14:00 10/09/16 04:13 Urine Random Sodium 20 mmol/L (Not Estab.) White Blood Count 8.7 x10^3/uL (4.0-11.0) Red Blood Count 2.33 x10^6/uL (4.30-5.70) Hemoglobin 7.4 g/dL (13.0-17.5) Hematocrit 21.9 % (39.0-53.0) Mean Corpuscular Volume 94 fL (79-100) Mean Corpuscular Hemoglobin 32 pg (25-35) Mean Corpuscular Hemoglobin Concent 34 g/dL (31-37) Red Cell Distribution Width 16.5 % (11.5-14.5) Platelet Count 151 x10^3/uL (140-400) Prothrombin Time 35.5 SEC (11.7-14.0) Prothromb Time International Ratio 3.8 (0.8-1.1) Sodium Level 137 mmol/L (136-145) Potassium Level 4.8 mmol/L (3.5-5.1) Chloride Level 104 mmol/L (98-107) Carbon Dioxide Level 24 mmol/L (21-32) Anion Gap 9 (6-14) Blood Urea Nitrogen 24 mg/dL (8-26) Creatinine 2.1 mg/dL (0.7-1.3) Estimated GFR (Cockcroft-Gault) 43.0 Glucose Level 94 mg/dL (70-99) Calcium Level 8.5 mg/dL (8.5-10.1) Phosphorus Level 3.9 mg/dL (2.6-4.7) Magnesium Level 1.7 mg/dL (1.8-2.4) Albumin 2.1 g/dL (3.4-5.0) Micro Micro Microbiology 10/06/16 Urine Culture - Final, Complete 10/06/16 Urine Culture Result 1 (MARIUSZ) - Final, Complete Review of Systems Constitutional: yes: alert, oriented Ears/Nose/Throat: Yes: no symptom reported Eyes: Yes: no symptom reported Pulmonary: Yes no symptom reported Cardiovascular: Yes no symptom reported Skin: Yes no symptom reported Endocrine: Yes: no symptom reported Physical Exam General Appearance: no apparent distress Skin: warm Respiratory: decreased breath sounds Heart: S1S2 Abdomen: soft Extremities: atrophy Neurology: alert, oriented, other (drowsy ) Musculoskeletal: Other Assessment Assessment IMP CHF ETOH ABUSE CKD STAGE 2 WITH CR OF 1.2-1.4 DAMION - IMPROVING CR DOWN TO 2.1 FROM 2.4 PLAN START PO LASIX LABS IN AM KATHERYN WATTERS MD October 09, 2016 10:39
[2016-10-09] MEDS: FUROSEMIDE 40 MG TABLET. PO SCH (12:06)
--- NOTE | 2016-10-09 13:42 | PDOC ---
PROGRESS NOTES Chief Complaint Chief Complaint cc: sob A/P 1. Acute and chronic diastolic heart failure: on PO diuresis, replace magnesium monitor renal functions. 2. Chronic respiratory failure: Possible Obesity hypoventilation. old Echo reviewed, normal LVEF, consult Dr Mckeon. 3. Hypertension: stable. 4. Normocytic anemia with coagulopathy, : Cirrhosis with ascites, possible alcoholic, GI consulted appreciate their recommendations 5. DAMION with CKD: possible due to VMN, PO diuretics, 6. Elevated lyte chains:d/w oncology, likely due to CKD 7. Chronic alcoholism: CIWA Protocol, 8. Morbid obesity 9. Anxiety/depression/schizophrenia: Stable 10. Physical debility: PT/OT 11. d/w brotherGodfrey, over phone, explained all the work up and clinical conditions, complex medical condition, agreed for current management, total time spent 40 min. History of Present Illness History of Present Illness sob better no fever no chills no bleeding. Vitals Vitals Vital Signs Date Time Temp Pulse Resp B/P (MAP) Pulse Ox O2 Delivery O2 Flow Rate FiO2 10/09/16 10:56 98.5 90 18 117/53 (74) 98 Room Air 98.5 Physical Exam General: Alert, Oriented X3, No acute distress, Other Heart: Normal S1, Normal S2 Lungs: Wheezing Abdomen: Normal bowel sounds (very obese, not tender, edema to abd) Extremities: No clubbing, Other (3+ edema and anasarca, chronic LE sclerosis from prior edema) Skin: No rashes, No breakdown, No significant lesion Labs LABS Laboratory Tests Test 10/08/16 14:00 10/09/16 04:13 Urine Random Sodium 20 mmol/L (Not Estab.) White Blood Count 8.7 x10^3/uL (4.0-11.0) Red Blood Count 2.33 x10^6/uL (4.30-5.70) Hemoglobin 7.4 g/dL (13.0-17.5) Hematocrit 21.9 % (39.0-53.0) Mean Corpuscular Volume 94 fL (79-100) Mean Corpuscular Hemoglobin 32 pg (25-35) Mean Corpuscular Hemoglobin Concent 34 g/dL (31-37) Red Cell Distribution Width 16.5 % (11.5-14.5) Platelet Count 151 x10^3/uL (140-400) Prothrombin Time 35.5 SEC (11.7-14.0) Prothromb Time International Ratio 3.8 (0.8-1.1) Sodium Level 137 mmol/L (136-145) Potassium Level 4.8 mmol/L (3.5-5.1) Chloride Level 104 mmol/L (98-107) Carbon Dioxide Level 24 mmol/L (21-32) Anion Gap 9 (6-14) Blood Urea Nitrogen 24 mg/dL (8-26) Creatinine 2.1 mg/dL (0.7-1.3) Estimated GFR (Cockcroft-Gault) 43.0 Glucose Level 94 mg/dL (70-99) Calcium Level 8.5 mg/dL (8.5-10.1) Phosphorus Level 3.9 mg/dL (2.6-4.7) Magnesium Level 1.7 mg/dL (1.8-2.4) Albumin 2.1 g/dL (3.4-5.0) Assessment and Plan Assessmemt and Plan Problems Medical Problems: (1) Alcohol abuse Status: Acute (2) Anasarca Status: Acute (3) Congestive heart failure Status: Acute Problems: Comment Review of Relevant I have reviewed the following items maci (where applicable) has been applied. Labs Laboratory Tests Test 10/07/16 23:30 10/08/16 03:05 10/08/16 14:00 10/09/16 04:13 Urine Protein 24.4 mg/dL (Not Estab.) Urine Random Sodium <20 mmol/L (Not Estab.) 20 mmol/L (Not Estab.) Urine Creatinine 227.3 mg/dL (Not Estab.) Urine Protein/Creatinine Ratio 107 mg/g creat (0-200) Hemoglobin 7.2 g/dL (13.0-17.5) 7.4 g/dL (13.0-17.5) Prothrombin Time 37.4 SEC (11.7-14.0) 35.5 SEC (11.7-14.0) Prothromb Time International Ratio 4.1 (0.8-1.1) 3.8 (0.8-1.1) Sodium Level 135 mmol/L (136-145) 137 mmol/L (136-145) Potassium Level 4.6 mmol/L (3.5-5.1) 4.8 mmol/L (3.5-5.1) Chloride Level 101 mmol/L (98-107) 104 mmol/L (98-107) Carbon Dioxide Level 22 mmol/L (21-32) 24 mmol/L (21-32) Anion Gap 12 (6-14) 9 (6-14) Blood Urea Nitrogen 26 mg/dL (8-26) 24 mg/dL (8-26) Creatinine 2.5 mg/dL (0.7-1.3) 2.1 mg/dL (0.7-1.3) Estimated GFR (Cockcroft-Gault) 35.1 43.0 BUN/Creatinine Ratio 10 (6-20) Glucose Level 102 mg/dL (70-99) 94 mg/dL (70-99) Calcium Level 8.5 mg/dL (8.5-10.1) 8.5 mg/dL (8.5-10.1) Phosphorus Level 3.8 mg/dL (2.6-4.7) 3.9 mg/dL (2.6-4.7) Magnesium Level 1.9 mg/dL (1.8-2.4) 1.7 mg/dL (1.8-2.4) Total Bilirubin 1.2 mg/dL (0.2-1.0) Aspartate Amino Transf (AST/SGOT) 37 U/L (15-37) Alanine Aminotransferase (ALT/SGPT) 16 U/L (16-63) Alkaline Phosphatase 343 U/L (46-116) Total Protein 6.8 g/dL (6.4-8.2) Albumin 2.1 g/dL (3.4-5.0) 2.1 g/dL (3.4-5.0) Albumin/Globulin Ratio 0.4 (1.0-1.7) White Blood Count 8.7 x10^3/uL (4.0-11.0) Red Blood Count 2.33 x10^6/uL (4.30-5.70) Hematocrit 21.9 % (39.0-53.0) Mean Corpuscular Volume 94 fL (79-100) Mean Corpuscular Hemoglobin 32 pg (25-35) Mean Corpuscular Hemoglobin Concent 34 g/dL (31-37) Red Cell Distribution Width 16.5 % (11.5-14.5) Platelet Count 151 x10^3/uL (140-400) Laboratory Tests Test 10/08/16 14:00 10/09/16 04:13 Urine Random Sodium 20 mmol/L (Not Estab.) White Blood Count 8.7 x10^3/uL (4.0-11.0) Red Blood Count 2.33 x10^6/uL (4.30-5.70) Hemoglobin 7.4 g/dL (13.0-17.5) Hematocrit 21.9 % (39.0-53.0) Mean Corpuscular Volume 94 fL (79-100) Mean Corpuscular Hemoglobin 32 pg (25-35) Mean Corpuscular Hemoglobin Concent 34 g/dL (31-37) Red Cell Distribution Width 16.5 % (11.5-14.5) Platelet Count 151 x10^3/uL (140-400) Prothrombin Time 35.5 SEC (11.7-14.0) Prothromb Time International Ratio 3.8 (0.8-1.1) Sodium Level 137 mmol/L (136-145) Potassium Level 4.8 mmol/L (3.5-5.1) Chloride Level 104 mmol/L (98-107) Carbon Dioxide Level 24 mmol/L (21-32) Anion Gap 9 (6-14) Blood Urea Nitrogen 24 mg/dL (8-26) Creatinine 2.1 mg/dL (0.7-1.3) Estimated GFR (Cockcroft-Gault) 43.0 Glucose Level 94 mg/dL (70-99) Calcium Level 8.5 mg/dL (8.5-10.1) Phosphorus Level 3.9 mg/dL (2.6-4.7) Magnesium Level 1.7 mg/dL (1.8-2.4) Albumin 2.1 g/dL (3.4-5.0) Microbiology 10/06/16 Urine Culture - Final, Complete 10/06/16 Urine Culture Result 1 (MARIUSZ) - Final, Complete Medications Current Medications Furosemide (Lasix) 80 mg 1X ONCE IVP Last administered on 10/06/16t 15:30; Start 10/06/16 at 15:30; Stop 10/06/16 at 15:31; Status DC Ondansetron HCl (Zofran) 4 mg PRN Q8HRS PRN IV NAUSEA/VOMITING; Start 10/06/16 at 16:45; Stop 10/07/16 at 16:44; Status DC Morphine Sulfate 4 mg PRN Q2HR PRN IV PAIN; Start 10/06/16 at 16:45; Stop 10/07 at 16:44; Status DC Nitroglycerin (Nitrostat) 0.4 mg PRN Q5MIN PRN SL CHEST PAIN; Start 10/06/16 at 16:45; Stop 10/07/16 at 16:44; Status DC Multivitamins 10 ml/Thiamine HCl 100 mg/Folic Acid 1 mg/Sodium Chloride 1,011.2 ml @ 100 mls/ hr DAILY IV Last administered on 10/06/16 18:27; Start at 17:00; Stop 10/06/16 at 21:37; Status DC Chlordiazepoxide (Librium) 25 mg Q6HRS PO Last administered on 10/08/16 00:18 ; Start 10/06/16 at 17:00; Stop 10/08/16 at 00:01; Status DC Nicotine (Nicoderm Cq 21mg) 1 patch DAILY TD Last administered on 10/09/16 09: 57; Start 10/07/16 at 09:00 Bupropion HCl (Wellbutrin) 100 mg BID PO Last administered on 10/09/16 09:43; Start 10/06/16 at 21:00 Furosemide (Lasix) 20 mg DAILY PO ; Start 10/07/16 at 09:00; Stop 10/07/16 at 09 :00; Status DC Haloperidol (Haldol) 5 mg DAILY PO Last administered on 10/09/16 09:43; Start 10/07/16 at 09:00 Magnesium Oxide (Magnesium Oxide) 400 mg DAILY PO Last administered on 09:43; Start 10/07/16 at 09:00 Pantoprazole Sodium (Protonix) 40 mg DAILYAC PO Last administered on 10/09/16 09:44; Start 10/07/16 at 07:30 Atorvastatin Calcium (Lipitor) 5 mg QHS PO Last administered on 10/08/16 21:08 ; Start 10/06/16 at 21:00 Amlodipine Besylate (Norvasc) 5 mg DAILY PO ; Start 10/07/16 at 09:00; Stop at 09:37; Status DC Lorazepam (Ativan) 2 mg PRN Q1HR PRN IV For CIWA 8-14; Start 10/06/16 at 21:30 Lorazepam (Ativan) 4 mg PRN Q1HR PRN IV For CIWA 15 or greater; Start 10/06/16 at 21:30 Thiamine Mononitrate (Vitamin B-1) 100 mg DAILY PO Last administered on 09:43; Start 10/06/16 at 21:45 Vitamin B Complex (Folbic Tablet) 1 tab DAILY PO Last administered on 09:43; Start 10/07/16 at 09:00 Furosemide (Lasix) 80 mg DAILY08 IVP Last administered on 10/08/16 09:17; Start 10/07/16 at 08:00; Stop 10/08/16 at 13:04; Status DC Magnesium Sulfate/ Dextrose 50 ml @ 25 mls/hr PRN DAILY PRN IV for Mag < 1.7 on am labs; Start 10/07/16 at 11:45 Phytonadione (Mephyton) 10 mg 1X ONCE PO Last administered on 10/08/16 14:04 ; Start 10/08/16 at 14:00; Stop 10/08/16 at 14:01; Status DC Iohexol (Omnipaque 300 Mg/ml) 75 ml 1X ONCE IV ; Start 10/08/16 at 17:15; Stop 10/08/16 at 17:16; Status DC Iohexol (Omnipaque 240 Mg/ml) 50 ml 1X ONCE PO Last administered on 10/08/16 18:10; Start 10/08/16 at 17:15; Stop 10/08/16 at 17:16; Status DC Info (Do NOT chart on this entry -- for MONITORING) 1 each PRN DAILY PRN MC SEE COMMENTS; Start 10/08/16 at 17:15; Stop 10/10/16 at 17:14 Magnesium Sulfate/ Dextrose 50 ml @ 25 mls/hr 1X ONCE IV Last administered on 10/09/16 09:44; Start 10/09/16 at 08:00; Stop 10/09/16 at 09:59; Status DC Furosemide (Lasix) 40 mg DAILY PO Last administered on 10/09/16t 12:06; Start 10/09/16 at 11:00 Active Scripts Active Lasix (Furosemide) 20 Mg Tablet 1 Tab PO DAILY Magnesium Oxide 400 Mg Tablet 1 Tab PO DAILY Reported Pravastatin Sodium 20 Mg Tablet 20 Mg PO DAILY Wellbutrin (Bupropion Hcl) 100 Mg Tablet Unknown Dose PO BID Haloperidol 2 Mg Tablet 5 Mg PO DAILY Prilosec (Omeprazole) 40 Mg Capsule.dr 40 Mg PO DAILY Exforge 5-160 Mg Tablet (Amlodipine/Valsartan) 1 Each Tablet Unknown Dose PO Vitals/I & O Vital Sign - Last 24 Hours 10/08/16 10/08/16 10/08/16 10/08/16 15:00 19:40 19:53 23:48 Temp 98.4 98.6 98.5 98.4 98.6 98.5 Pulse 90 92 94 Resp 32 23 26 B/P (MAP) 115/50 (71) 119/55 (76) 125/59 (81) Pulse Ox 95 97 99 O2 Delivery Room Air Room Air Room Air Room Air 10/09/16 10/09/16 10/09/16 10/09/16 03:15 07:30 08:00 08:03 Temp 98.2 98.3 98.3 98.2 98.3 98.3 Pulse 94 91 95 Resp 24 24 26 B/P (MAP) 97/50 (66) 155/61 (92) 117/67 (84) Pulse Ox 98 95 95 O2 Delivery Room Air Room Air Room Air Room Air 10/09/16 10:56 Temp 98.5 98.5 Pulse 90 Resp 18 B/P (MAP) 117/53 (74) Pulse Ox 98 O2 Delivery Room Air Intake and Output 10/08/16 10/08/16 10/09/16 15:00 23:00 07:00 Intake Total 240 ml Output Total 400 ml 450 ml 200 ml Balance -400 ml -450 ml 40 ml TONI GIORDANO MD October 09, 2016 13:42
[2016-10-09] MEDS: ATORVASTATIN CALCIUM 10 MG TABLET. PO SCH (20:52)
[2016-10-10 03:00] VITALS: BP 129/49
[2016-10-10 04:35] LABS: CALCIUM 8.6 mg/dL (8.5-10.1); CREATININE 1.8 mg/dL (0.7-1.3); GFR 51.4; POTASSIUM 4.8 mmol/L (3.5-5.1)
[2016-10-10 04:36] LABS: ALBUMIN 2.2 g/dL (3.4-5.0); CALCIUM 8.7 mg/dL (8.5-10.1); CREATININE 1.8 mg/dL (0.7-1.3); GFR 51.4; PHOSPHORUS 3.6 mg/dL (2.6-4.7); POTASSIUM 4.7 mmol/L (3.5-5.1)
[2016-10-10] MEDS: PANTOPRAZOLE 40 MG TABLET.DR. PO SCH (05:31)
[2016-10-10 07:00] VITALS: BP 117/52
[2016-10-10] MEDS: VITAMIN B12,B9,B6 COMPLEX 1 TABLET. PO SCH (08:55)
[2016-10-10] MEDS: buPROPion 100 MG TABLET PO SCH ×2 (08:55→21:15)
[2016-10-10] MEDS: HALOPERIDOL 5 MG TABLET. PO SCH (08:55)
[2016-10-10] MEDS: THIAMINE 100 MG TABLET. PO SCH (08:55)
[2016-10-10] MEDS: FUROSEMIDE 40 MG TABLET. PO SCH ×2 (08:55→16:04)
[2016-10-10] MEDS: MAGNESIUM OXIDE 400 MG TABLET PO SCH (08:55)
[2016-10-10] MEDS: NICOTINE 21MG PATCH. TD SCH (08:56)
--- NOTE | 2016-10-10 10:04 | PDOC ---
Provider Note Provider Note dictated SOLEDAD SNEED MD October 10, 2016 10:04
--- NOTE | 2016-10-10 11:05 | PDOC ---
Renal-Progress Notes Subjective Notes Notes NONE History of Present Illness Hx of present illness NO CHANGE Vitals Vitals Vital Signs Date Time Temp Pulse Resp B/P (MAP) Pulse Ox O2 Delivery O2 Flow Rate FiO2 10/10/16 08:00 Room Air 10/10/16 07:00 97.7 97 25 117/52 (73) 95 97.7 Weight Weight [ ] I.O. Intake and Output Intake and Output 10/10/16 07:00 Intake Total 1530 ml Output Total 1300 ml Balance 230 ml Intake Oral 1530 ml Output Urine Total 1300 ml # Bowel Movements 1 Labs Labs Laboratory Tests Test 10/10/16 03:57 Sodium Level 137 mmol/L (136-145) Potassium Level 4.8 mmol/L (3.5-5.1) Chloride Level 105 mmol/L (98-107) Carbon Dioxide Level 24 mmol/L (21-32) Anion Gap 8 (6-14) Blood Urea Nitrogen 23 mg/dL (8-26) Creatinine 1.8 mg/dL (0.7-1.3) Estimated GFR (Cockcroft-Gault) 51.4 Glucose Level 95 mg/dL (70-99) Calcium Level 8.6 mg/dL (8.5-10.1) Phosphorus Level 3.6 mg/dL (2.6-4.7) Magnesium Level 1.8 mg/dL (1.8-2.4) Albumin 2.2 g/dL (3.4-5.0) Micro Micro Microbiology 10/06/16 Urine Culture - Final, Complete 10/06/16 Urine Culture Result 1 (MARIUSZ) - Final, Complete Review of Systems Constitutional: yes: alert, oriented Ears/Nose/Throat: Yes: no symptom reported Eyes: Yes: no symptom reported Pulmonary: Yes no symptom reported Cardiovascular: Yes no symptom reported Skin: Yes no symptom reported Endocrine: Yes: no symptom reported Physical Exam General Appearance: no apparent distress Skin: warm Respiratory: decreased breath sounds Heart: S1S2 Abdomen: soft Extremities: atrophy Neurology: alert, oriented, other (drowsy ) Musculoskeletal: Other Assessment Assessment IMP CHF ETOH ABUSE CKD STAGE 2 WITH CR OF 1.2-1.4 DAMION - IMPROVING CR DOWN TO 1.8 FROM 2.4 PLAN INCREASE LASIX LABS IN AM KATHERYN WATTERS MD October 10, 2016 11:05
[2016-10-10 11:08] LABS: HCO3 ABG 21 mmol/L (21-28); PCO2 ABG 36 mmHg (35-46); PH ABG 7.39 (7.35-7.45); PO2 ABG 76 mmHg (85-108); SAT O2 ABG 93 % (92-99)
[2016-10-10 11:10] LABS: FIO2 ABG 21
[2016-10-10 11:25] VITALS: BP 105/62
--- NOTE | 2016-10-10 11:56 | PDOC ---
PROGRESS NOTES Chief Complaint Chief Complaint cc: sob A/P 1. Acute and chronic diastolic heart failure: on PO diuresis, replace magnesium monitor renal functions. 2. Chronic respiratory failure: Possible Obesity hypoventilation. old Echo reviewed, normal LVEF, ABG today, possible BIPAP 3. Hypertension: stable. 4. Normocytic anemia with coagulopathy, : Cirrhosis with ascites, possible alcoholic, GI consulted appreciate their recommendations 5. DAMION with CKD: possible due to VMN, PO diuretics, 6. Elevated lyte chains:d/w oncology, likely due to CKD 7. Chronic alcoholism: CIWA Protocol, 8. Morbid obesity 9. Anxiety/depression/schizophrenia: Stable 10. Physical debility: PT/OT 11. History of Present Illness History of Present Illness sob better no fever no chills no bleeding. Vitals Vitals Vital Signs Date Time Temp Pulse Resp B/P (MAP) Pulse Ox O2 Delivery O2 Flow Rate FiO2 10/10/16 11:25 98.1 92 23 105/62 (76) 96 Room Air 98.1 Physical Exam General: Alert, Oriented X3, No acute distress, Other Heart: Normal S1, Normal S2 Lungs: Wheezing Abdomen: Normal bowel sounds (very obese, not tender, edema to abd) Extremities: No clubbing, Other (3+ edema and anasarca, chronic LE sclerosis from prior edema) Skin: No rashes, No breakdown, No significant lesion Labs LABS Laboratory Tests Test 10/10/16 03:57 10/10/16 10:50 Sodium Level 137 mmol/L (136-145) Potassium Level 4.8 mmol/L (3.5-5.1) Chloride Level 105 mmol/L (98-107) Carbon Dioxide Level 24 mmol/L (21-32) Anion Gap 8 (6-14) Blood Urea Nitrogen 23 mg/dL (8-26) Creatinine 1.8 mg/dL (0.7-1.3) Estimated GFR (Cockcroft-Gault) 51.4 Glucose Level 95 mg/dL (70-99) Calcium Level 8.6 mg/dL (8.5-10.1) Phosphorus Level 3.6 mg/dL (2.6-4.7) Magnesium Level 1.8 mg/dL (1.8-2.4) Albumin 2.2 g/dL (3.4-5.0) O2 Saturation 93 % (92-99) Arterial Blood pH 7.39 (7.35-7.45) Arterial Blood pCO2 at Patient Temp 36 mmHg (35-46) Arterial Blood pO2 at Patient Temp 76 mmHg (85-108) Arterial Blood HCO3 21 mmol/L (21-28) Arterial Blood Base Excess -3 mmol/L (-3-3) FiO2 21 Assessment and Plan Assessmemt and Plan Problems Medical Problems: (1) Alcohol abuse Status: Acute (2) Anasarca Status: Acute (3) Congestive heart failure Status: Acute Problems: Comment Review of Relevant I have reviewed the following items maci (where applicable) has been applied. Labs Laboratory Tests Test 10/08/16 14:00 10/09/16 04:13 10/10/16 03:57 10/10/16 10:50 Urine Random Sodium 20 mmol/L (Not Estab.) White Blood Count 8.7 x10^3/uL (4.0-11.0) Red Blood Count 2.33 x10^6/uL (4.30-5.70) Hemoglobin 7.4 g/dL (13.0-17.5) Hematocrit 21.9 % (39.0-53.0) Mean Corpuscular Volume 94 fL (79-100) Mean Corpuscular Hemoglobin 32 pg (25-35) Mean Corpuscular Hemoglobin Concent 34 g/dL (31-37) Red Cell Distribution Width 16.5 % (11.5-14.5) Platelet Count 151 x10^3/uL (140-400) Prothrombin Time 35.5 SEC (11.7-14.0) Prothromb Time International Ratio 3.8 (0.8-1.1) Sodium Level 137 mmol/L (136-145) 137 mmol/L (136-145) Potassium Level 4.8 mmol/L (3.5-5.1) 4.8 mmol/L (3.5-5.1) Chloride Level 104 mmol/L (98-107) 105 mmol/L (98-107) Carbon Dioxide Level 24 mmol/L (21-32) 24 mmol/L (21-32) Anion Gap 9 (6-14) 8 (6-14) Blood Urea Nitrogen 24 mg/dL (8-26) 23 mg/dL (8-26) Creatinine 2.1 mg/dL (0.7-1.3) 1.8 mg/dL (0.7-1.3) Estimated GFR (Cockcroft-Gault) 43.0 51.4 Glucose Level 94 mg/dL (70-99) 95 mg/dL (70-99) Calcium Level 8.5 mg/dL (8.5-10.1) 8.6 mg/dL (8.5-10.1) Phosphorus Level 3.9 mg/dL (2.6-4.7) 3.6 mg/dL (2.6-4.7) Magnesium Level 1.7 mg/dL (1.8-2.4) 1.8 mg/dL (1.8-2.4) Albumin 2.1 g/dL (3.4-5.0) 2.2 g/dL (3.4-5.0) O2 Saturation 93 % (92-99) Arterial Blood pH 7.39 (7.35-7.45) Arterial Blood pCO2 at Patient Temp 36 mmHg (35-46) Arterial Blood pO2 at Patient Temp 76 mmHg (85-108) Arterial Blood HCO3 21 mmol/L (21-28) Arterial Blood Base Excess -3 mmol/L (-3-3) FiO2 21 Laboratory Tests Test 10/10/16 03:57 10/10/16 10:50 Sodium Level 137 mmol/L (136-145) Potassium Level 4.8 mmol/L (3.5-5.1) Chloride Level 105 mmol/L (98-107) Carbon Dioxide Level 24 mmol/L (21-32) Anion Gap 8 (6-14) Blood Urea Nitrogen 23 mg/dL (8-26) Creatinine 1.8 mg/dL (0.7-1.3) Estimated GFR (Cockcroft-Gault) 51.4 Glucose Level 95 mg/dL (70-99) Calcium Level 8.6 mg/dL (8.5-10.1) Phosphorus Level 3.6 mg/dL (2.6-4.7) Magnesium Level 1.8 mg/dL (1.8-2.4) Albumin 2.2 g/dL (3.4-5.0) O2 Saturation 93 % (92-99) Arterial Blood pH 7.39 (7.35-7.45) Arterial Blood pCO2 at Patient Temp 36 mmHg (35-46) Arterial Blood pO2 at Patient Temp 76 mmHg (85-108) Arterial Blood HCO3 21 mmol/L (21-28) Arterial Blood Base Excess -3 mmol/L (-3-3) FiO2 21 Microbiology 10/06/16 Urine Culture - Final, Complete 10/06/16 Urine Culture Result 1 (MARIUSZ) - Final, Complete Medications Current Medications Furosemide (Lasix) 80 mg 1X ONCE IVP Last administered on 10/06/16 15:30; Start 10/06/16 at 15:30; Stop 10/06/16 at 15:31; Status DC Ondansetron HCl (Zofran) 4 mg PRN Q8HRS PRN IV NAUSEA/VOMITING; Start 10/06/16 at 16:45; Stop 10/07/16 at 16:44; Status DC Morphine Sulfate 4 mg PRN Q2HR PRN IV PAIN; Start 10/06/16 at 16:45; Stop 10/07 at 16:44; Status DC Nitroglycerin (Nitrostat) 0.4 mg PRN Q5MIN PRN SL CHEST PAIN; Start 10/06/16 at 16:45; Stop 10/07/16 at 16:44; Status DC Multivitamins 10 ml/Thiamine HCl 100 mg/Folic Acid 1 mg/Sodium Chloride 1,011.2 ml @ 100 mls/ hr DAILY IV Last administered on 10/06/16 18:27; Start at 17:00; Stop 10/06/16 at 21:37; Status DC Chlordiazepoxide (Librium) 25 mg Q6HRS PO Last administered on 10/08/16 00:18 ; Start 10/06/16 at 17:00; Stop 10/08/16 at 00:01; Status DC Nicotine (Nicoderm Cq 21mg) 1 patch DAILY TD Last administered on 10/10/16 08: 56; Start 10/07/16 at 09:00 Bupropion HCl (Wellbutrin) 100 mg BID PO Last administered on 10/10/16 08:55; Start 10/06/16 at 21:00 Furosemide (Lasix) 20 mg DAILY PO ; Start 10/07/16 at 09:00; Stop 10/07/16 at 09 :00; Status DC Haloperidol (Haldol) 5 mg DAILY PO Last administered on 10/10/16 08:55; Start 10/07/16 at 09:00 Magnesium Oxide (Magnesium Oxide) 400 mg DAILY PO Last administered on 08:55; Start 10/07/16 at 09:00 Pantoprazole Sodium (Protonix) 40 mg DAILYAC PO Last administered on 10/10/16 05:31; Start 10/07/16 at 07:30 Atorvastatin Calcium (Lipitor) 5 mg QHS PO Last administered on 10/09/16 20:52 ; Start 10/06/16 at 21:00 Amlodipine Besylate (Norvasc) 5 mg DAILY PO ; Start 10/07/16 at 09:00; Stop at 09:37; Status DC Lorazepam (Ativan) 2 mg PRN Q1HR PRN IV For CIWA 8-14; Start 10/06/16 at 21:30 Lorazepam (Ativan) 4 mg PRN Q1HR PRN IV For CIWA 15 or greater; Start 10/06/16 at 21:30 Thiamine Mononitrate (Vitamin B-1) 100 mg DAILY PO Last administered on 08:55; Start 10/06/16 at 21:45 Vitamin B Complex (Folbic Tablet) 1 tab DAILY PO Last administered on 08:55; Start 10/07/16 at 09:00 Furosemide (Lasix) 80 mg DAILY08 IVP Last administered on 10/08/16 09:17; Start 10/07/16 at 08:00; Stop 10/08/16 at 13:04; Status DC Magnesium Sulfate/ Dextrose 50 ml @ 25 mls/hr PRN DAILY PRN IV for Mag < 1.7 on am labs; Start 10/07/16 at 11:45 Phytonadione (Mephyton) 10 mg 1X ONCE PO Last administered on 10/08/16 14:04 ; Start 10/08/16 at 14:00; Stop 10/08/16 at 14:01; Status DC Iohexol (Omnipaque 300 Mg/ml) 75 ml 1X ONCE IV ; Start 10/08/16 at 17:15; Stop 10/08/16 at 17:16; Status DC Iohexol (Omnipaque 240 Mg/ml) 50 ml 1X ONCE PO Last administered on 10/08/16 18:10; Start 10/08/16 at 17:15; Stop 10/08/16 at 17:16; Status DC Info (Do NOT chart on this entry -- for MONITORING) 1 each PRN DAILY PRN MC SEE COMMENTS; Start 10/08/16 at 17:15; Stop 10/10/16 at 17:14 Magnesium Sulfate/ Dextrose 50 ml @ 25 mls/hr 1X ONCE IV Last administered on 10/09/16 09:44; Start 10/09/16 at 08:00; Stop 10/09/16 at 09:59; Status DC Furosemide (Lasix) 40 mg DAILY PO Last administered on 10/10/16 08:55; Start 10/09/16 at 11:00; Stop 10/10/16 at 11:07; Status DC Furosemide (Lasix) 40 mg BID92 PO ; Start 10/10/16 at 14:00 Active Scripts Active Lasix (Furosemide) 20 Mg Tablet 1 Tab PO DAILY Magnesium Oxide 400 Mg Tablet 1 Tab PO DAILY Reported Pravastatin Sodium 20 Mg Tablet 20 Mg PO DAILY Wellbutrin (Bupropion Hcl) 100 Mg Tablet Unknown Dose PO BID Haloperidol 2 Mg Tablet 5 Mg PO DAILY Prilosec (Omeprazole) 40 Mg Capsule.dr 40 Mg PO DAILY Exforge 5-160 Mg Tablet (Amlodipine/Valsartan) 1 Each Tablet Unknown Dose PO Vitals/I & O Vital Sign - Last 24 Hours 10/09/16 10/09/16 10/09/16 10/09/16 14:50 19:00 20:54 23:00 Temp 98.3 99.0 98.1 98.3 99.0 98.1 Pulse 93 97 97 Resp 20 24 24 B/P (MAP) 124/54 (77) 111/63 (79) 133/48 (76) Pulse Ox 99 93 93 O2 Delivery Room Air Room Air Room Air Room Air 10/10/16 10/10/16 10/10/16 10/10/16 03:00 07:00 08:00 10:50 Temp 97.5 97.7 97.5 97.7 Pulse 95 97 Resp 22 25 B/P (MAP) 129/49 (75) 117/52 (73) Pulse Ox 95 95 94 O2 Delivery Room Air Room Air Room Air Room Air 10/10/16 11:25 Temp 98.1 98.1 Pulse 92 Resp 23 B/P (MAP) 105/62 (76) Pulse Ox 96 O2 Delivery Room Air Intake and Output 10/09/16 10/09/16 10/10/16 15:00 23:00 07:00 Intake Total 860 ml 670 ml Output Total 1300 ml Balance -440 ml 670 ml TONI GIORDANO MD October 10, 2016 11:56
--- NOTE | 2016-10-10 12:15 | CONS ---
DATE OF CONSULTATION: ATTENDING PHYSICIAN: Jazzy Robins. REASON FOR CONSULTATION: Dyspnea. HISTORY OF PRESENT ILLNESS: The patient is known to me from his recent previous two admissions. He is a 36-year-old who is morbidly obese with a BMI of 62. He continues to smoke cigarettes and history of alcohol use. He has twice been admitted. His admissions were secondary to acute on chronic diastolic heart failure and pneumonitis. He was brought back to the hospital again with increasing swelling in his extremities and his abdomen along with some shortness of breath. The patient has no cough. He has lower extremity edema. He has no history of deep vein thrombosis or pulmonary embolism. He had a workup done during his August hospitalization. At that time, CT angio was negative. He did have pneumonitis at that time, which was treated. His echocardiogram in August had shown normal ejection fraction. It was a technically difficult study and pulmonary artery pressure was 39. During his recent hospitalization, a chest x-ray obtained from 10/06/2016 showed mild vascular congestion. A CT abdomen and pelvis obtained on 10/08/2016 shows clear bases. There was, however, evidence of cirrhosis. There was some nonspecific inguinal adenopathy. Upon further questioning, he is lethargic, he is snoring. He drinks a pint of gin and 6 pack of beer daily. PAST MEDICAL HISTORY: Morbid obesity, history of diastolic CHF, hypertension, hyperlipidemia, cirrhosis, schizophrenia, tobaccoism and ETOH abuse, peptic ulcer disease. PAST SURGICAL HISTORY: No recent surgeries. ALLERGIES: NONSTEROIDALS. REVIEW OF SYSTEMS: Limited, but 10-point system was obtained. Pertinent positives discussed in my history of present illness, otherwise noncontributory. MEDICATIONS: Reviewed as listed in the MRAD. SOCIAL HISTORY: Ongoing tobaccoism and alcoholism. PHYSICAL EXAMINATION: GENERAL: He is snoring, somewhat lethargic. VITAL SIGNS: Blood pressure 117/52, afebrile, pulse ox 95% on room air. NECK: Supple. LUNGS: Faint wheezing. CARDIOVASCULAR: Regular rate. ABDOMEN: Soft, morbidly obese. EXTREMITIES: Bilateral pitting edema. LABORATORY DATA: Reviewed. His sodium 137, potassium 4.8, BUN 23, creatinine 1.8. INR is 3.8. White cell count 8.7, hemoglobin 7.4 and platelets 151. IMPRESSION: 1. Dyspnea secondary to multifactorial etiologies and includes a combination of acute on chronic diastolic heart failure, underlying morbid obesity with cor pulmonale, suspected hepatopulmonary syndrome from cirrhosis and ongoing tobaccoism/chronic obstructive pulmonary disease. 2. Morbid obesity with suspected obstructive sleep apnea and obesity hypoventilation syndrome. 3. Cirrhosis with coagulopathy. 4. Suspected hepatopulmonary syndrome. 5. Acute on chronic diastolic heart failure, improved on recent images. 6. Poor compliance. 7. Ongoing alcoholism. 8. Underlying schizophrenia. 9. Coagulopathy secondary to cirrhosis. RECOMMENDATIONS: 1. We will obtain ABGs to assess for any resting hypercapnia and may add BiPAP if needed. 2. Continue diuresis. 3. Nebulizer treatments. 4. Minimize narcotics and benzos. 5. Difficult to treat this complex patient due to poor compliance and ongoing tobaccoism and alcoholism. 6. Follow GI recommendations. 7. Follow Cardiology recommendations. 8. Further recommendations to follow. Discussed with RN. SOLEDAD SNEED MD DR: CHRISTIANO/svitlana JOB#: [id number] / [id number]
[2016-10-10 14:59] VITALS: BP 132/62
[2016-10-10] MEDS ORDERED: HALOPERIDOL 5 MG TABLET. PO PRN (18:30)
[2016-10-10 19:45] VITALS: BP 137/66
[2016-10-10] MEDS: ATORVASTATIN CALCIUM 10 MG TABLET. PO SCH (21:15)
[2016-10-10 23:35] VITALS: BP 129/56
--- NOTE | 2016-10-11 01:33 | CONS ---
DATE OF CONSULTATION: 10/09/2016 REQUESTING PHYSICIAN: Dr. Jazzy Robins. PRIMARY CARE PHYSICIAN: Dr. Carlotta Brown. REASON FOR CONSULTATION: Coagulopathy. HISTORY OF PRESENT ILLNESS: This is a 36-year-old gentleman who was recently seen by my partner, Dr. Agrawal, on 09/16/2016 for abnormal liver function tests and anemia. Per review of the note, he had an INR of 3.6, bilirubin of 1.9 and alkaline phosphatase of 297 at that time. He has a history of peptic ulcer disease secondary to NSAIDs and a history of occasional rectal bleeding. It was discussed at that time that he would undergo an EGD and colonoscopy when his heart and lung issues were stable. He was admitted to [facility] again on 10/06/2016 for lower extremity pain and swelling. He admits to drinking a 6-pack of beer a day as well as a pint of whiskey. His brother reports that he has been in and out of the hospital 5 times for fluid and does not have any resolution of fluids of his lower extremities. PAST MEDICAL HISTORY: Significant for: 1. Morbid obesity. 2. CHF. 3. Hypertension. 3. Hyperlipidemia. 4. Fatty liver. 5. Schizophrenia. 6. Tobacco abuse. 7. Alcohol abuse. 8. Peptic ulcer disease. 9. GERD. FAMILY MEDICAL HISTORY: Significant for: 1. Heart disease. 2. Hypertension. 3. Migraines. SOCIAL HISTORY: He smokes a pack of cigarettes a day. He drinks 6 packs of beer and a pint of whiskey a day. He smokes marijuana. MEDICATIONS: Currently, he is on: 1. Lasix. 2. Magnesium. 3. Vitamin D. 4. Haldol. 5. Nicotine. 6. Pantoprazole. 7. Thiamine. 8. Ativan. 9. Lipitor. 10. Wellbutrin. ALLERGIES: SHELLFISH AND NSAID. REVIEW OF SYSTEMS: A 13-point review of systems was done. It is positive as per HPI, otherwise negative. PHYSICAL EXAMINATION: VITAL SIGNS: Temperature is 98.5, blood pressure 117/53, heart rate 90. GENERAL: He is an obese -[place] male who is sitting up in the bed. HEENT: His oropharynx is clear. CARDIOVASCULAR: Distant S1, S2. LUNGS: Have decreased breath sounds anteriorly. ABDOMEN: Normoactive bowel sounds. He is obese and nontender. EXTREMITIES: He does have edema. IMAGING STUDIES: CT of the abdomen and pelvis done on 10/08/2016, demonstrates a heterogeneous liver consistent with a history of cirrhosis. There is a small amount of ascites and diffuse anasarca and suspected cholelithiasis as well as a small periumbilical ventral hernia with ascitic fluid. LABORATORY DATA: White blood cell count of 8.4 with hemoglobin of 7.4, platelets are at 151. Coags show an INR of 3.8. Chemistries showed an elevated bilirubin at 1.2 on 10/08 with alkaline phosphatase of 343. ASSESSMENT AND PLAN: Coagulopathy. This is likely secondary to his liver disease. His records demonstrate cirrhosis on his CT. He has had a negative hepatitis panel in the past. In terms of the evaluation for this, I tried to discuss this with his family. His brother became very enraged and stated that his issue is fluid secondary to his heart and he needs the fluid removed. At this time, I tried to further elucidate that the goal was to address his coagulopathy and elevated liver function tests. His brother became more angry and at this point, he was at a threatening stance. I left the room and his brother said he did not want me to return. I have discussed this with the nurse. If there are any acute GI issues, the primary team should place with other consults. Thank you for allowing me, Dr. Agrawal, to participate in the care of this patient. SADAF AGRAWAL MD DR: SANDRA/svitlana JOB#: [id number] / [id number] [facility] CARLOTTA MCKEON MD
[2016-10-11 03:40] VITALS: BP 116/54
[2016-10-11 04:07] LABS: ALBUMIN 2.3 g/dL (3.4-5.0); CALCIUM 9.1 mg/dL (8.5-10.1); CREATININE 1.7 mg/dL (0.7-1.3); GFR 54.9; PHOSPHORUS 3.7 mg/dL (2.6-4.7); POTASSIUM 4.7 mmol/L (3.5-5.1)
[2016-10-11 04:17] LABS: INR 3.6 (0.8-1.1); PROTHROMBIN TIME PATIENT 33.7 SEC (11.7-14.0)
[2016-10-11 07:00] VITALS: BP 107/59
[2016-10-11] MEDS: buPROPion 100 MG TABLET PO SCH (09:00)
[2016-10-11] MEDS: VITAMIN B12,B9,B6 COMPLEX 1 TABLET. PO SCH (09:00)
[2016-10-11] MEDS: THIAMINE 100 MG TABLET. PO SCH (09:00)
[2016-10-11] MEDS: FUROSEMIDE 40 MG TABLET. PO SCH ×2 (09:01→14:51)
[2016-10-11] MEDS: NICOTINE 21MG PATCH. TD SCH (09:01)
[2016-10-11] MEDS: MAGNESIUM OXIDE 400 MG TABLET PO SCH (09:01)
[2016-10-11] MEDS: PANTOPRAZOLE 40 MG TABLET.DR. PO SCH (09:01)
[2016-10-11 09:28] LABS: INR 3.9 (0.8-1.1)
--- NOTE | 2016-10-11 10:50 | PDOC ---
Renal-Progress Notes Subjective Notes Notes NONE History of Present Illness Hx of present illness NO CHANGE Vitals Vitals Vital Signs Date Time Temp Pulse Resp B/P (MAP) Pulse Ox O2 Delivery O2 Flow Rate FiO2 10/11/16 07:00 98.3 92 24 107/59 (75) 100 Room Air 98.3 Weight Weight [ ] I.O. Intake and Output Intake and Output 10/11/16 07:00 Intake Total 2185 ml Output Total 1100 ml Balance 1085 ml Intake Oral 2185 ml Output Urine Total 1100 ml # Voids 2 # Bowel Movements 4 Labs Labs Laboratory Tests Test 10/10/16 10:50 10/11/16 03:10 10/11/16 08:10 O2 Saturation 93 % (92-99) Arterial Blood pH 7.39 (7.35-7.45) Arterial Blood pCO2 at Patient Temp 36 mmHg (35-46) Arterial Blood pO2 at Patient Temp 76 mmHg (85-108) Arterial Blood HCO3 21 mmol/L (21-28) Arterial Blood Base Excess -3 mmol/L (-3-3) FiO2 21 Prothrombin Time 33.7 SEC (11.7-14.0) 36.0 SEC (11.7-14.0) Prothromb Time International Ratio 3.6 (0.8-1.1) 3.9 (0.8-1.1) Sodium Level 135 mmol/L (136-145) Potassium Level 4.7 mmol/L (3.5-5.1) Chloride Level 104 mmol/L (98-107) Carbon Dioxide Level 26 mmol/L (21-32) Anion Gap 5 (6-14) Blood Urea Nitrogen 19 mg/dL (8-26) Creatinine 1.7 mg/dL (0.7-1.3) Estimated GFR (Cockcroft-Gault) 54.9 Glucose Level 93 mg/dL (70-99) Calcium Level 9.1 mg/dL (8.5-10.1) Phosphorus Level 3.7 mg/dL (2.6-4.7) Magnesium Level 1.8 mg/dL (1.8-2.4) Albumin 2.3 g/dL (3.4-5.0) Micro Micro Microbiology 10/06/16 Urine Culture - Final, Complete 10/06/16 Urine Culture Result 1 (MARIUSZ) - Final, Complete Review of Systems Constitutional: yes: alert, oriented Ears/Nose/Throat: Yes: no symptom reported Eyes: Yes: no symptom reported Pulmonary: Yes no symptom reported Cardiovascular: Yes no symptom reported Skin: Yes no symptom reported Endocrine: Yes: no symptom reported Physical Exam General Appearance: no apparent distress Skin: warm Respiratory: decreased breath sounds Heart: S1S2 Abdomen: soft Extremities: atrophy Neurology: alert, oriented, other (drowsy ) Musculoskeletal: Other Assessment Assessment IMP CHF ETOH ABUSE CKD STAGE 2 WITH CR OF 1.2-1.4 DAMION - IMPROVING CR DOWN TO 1.7 FROM 2.4 PLAN CONT LASIX LABS IN AM KATHERYN WATTERS MD October 11, 2016 10:50
[2016-10-11 11:28] VITALS: BP 129/79
--- NOTE | 2016-10-11 12:33 | PDOC ---
PROGRESS NOTES Chief Complaint Chief Complaint cc: sob A/P 1. Acute and chronic diastolic heart failure: on PO diuresis, replace magnesium monitor renal functions. stable, 2. Chronic respiratory failure: Possible Obesity hypoventilation. old Echo reviewed, normal LVEF, ABG today, possible BIPAP at night time, need out pt sleep studey 3. Hypertension: stable with lasix. 4. Normocytic anemia with coagulopathy, : Cirrhosis with ascites, possible alcoholic, pt's family rule to Dr Garcia, 5. DAMION with CKD: possible due to VMN, PO diuretics, 6. Elevated lyte chains:d/w oncology, likely due to CKD 7. Chronic alcoholism: CIWA Protocol, 8. Morbid obesity 9. Anxiety/depression/schizophrenia: Stable 10. Physical debility: PT/OT, stable to go home, History of Present Illness History of Present Illness sob better no fever no chills no bleeding. Vitals Vitals Vital Signs Date Time Temp Pulse Resp B/P (MAP) Pulse Ox O2 Delivery O2 Flow Rate FiO2 10/11/16 11:28 97.5 94 25 129/79 (96) 95 Room Air 97.5 Physical Exam General: Alert, Oriented X3, No acute distress, Other Heart: Normal S1, Normal S2 Lungs: Wheezing Abdomen: Normal bowel sounds (very obese, not tender, edema to abd) Extremities: No clubbing, Other (3+ edema and anasarca, chronic LE sclerosis from prior edema) Skin: No rashes, No breakdown, No significant lesion Labs LABS Laboratory Tests Test 10/11/16 03:10 10/11/16 08:10 Prothrombin Time 33.7 SEC (11.7-14.0) 36.0 SEC (11.7-14.0) Prothromb Time International Ratio 3.6 (0.8-1.1) 3.9 (0.8-1.1) Sodium Level 135 mmol/L (136-145) Potassium Level 4.7 mmol/L (3.5-5.1) Chloride Level 104 mmol/L (98-107) Carbon Dioxide Level 26 mmol/L (21-32) Anion Gap 5 (6-14) Blood Urea Nitrogen 19 mg/dL (8-26) Creatinine 1.7 mg/dL (0.7-1.3) Estimated GFR (Cockcroft-Gault) 54.9 Glucose Level 93 mg/dL (70-99) Calcium Level 9.1 mg/dL (8.5-10.1) Phosphorus Level 3.7 mg/dL (2.6-4.7) Magnesium Level 1.8 mg/dL (1.8-2.4) Albumin 2.3 g/dL (3.4-5.0) Assessment and Plan Assessmemt and Plan Problems Medical Problems: (1) Alcohol abuse Status: Acute (2) Anasarca Status: Acute (3) Congestive heart failure Status: Acute Problems: Comment Review of Relevant I have reviewed the following items maci (where applicable) has been applied. Labs Laboratory Tests Test 10/10/16 03:57 10/10/16 10:50 10/11/16 03:10 10/11/16 08:10 Sodium Level 137 mmol/L (136-145) 135 mmol/L (136-145) Potassium Level 4.8 mmol/L (3.5-5.1) 4.7 mmol/L (3.5-5.1) Chloride Level 105 mmol/L (98-107) 104 mmol/L (98-107) Carbon Dioxide Level 24 mmol/L (21-32) 26 mmol/L (21-32) Anion Gap 8 (6-14) 5 (6-14) Blood Urea Nitrogen 23 mg/dL (8-26) 19 mg/dL (8-26) Creatinine 1.8 mg/dL (0.7-1.3) 1.7 mg/dL (0.7-1.3) Estimated GFR (Cockcroft-Gault) 51.4 54.9 Glucose Level 95 mg/dL (70-99) 93 mg/dL (70-99) Calcium Level 8.6 mg/dL (8.5-10.1) 9.1 mg/dL (8.5-10.1) Phosphorus Level 3.6 mg/dL (2.6-4.7) 3.7 mg/dL (2.6-4.7) Magnesium Level 1.8 mg/dL (1.8-2.4) 1.8 mg/dL (1.8-2.4) Albumin 2.2 g/dL (3.4-5.0) 2.3 g/dL (3.4-5.0) O2 Saturation 93 % (92-99) Arterial Blood pH 7.39 (7.35-7.45) Arterial Blood pCO2 at Patient Temp 36 mmHg (35-46) Arterial Blood pO2 at Patient Temp 76 mmHg (85-108) Arterial Blood HCO3 21 mmol/L (21-28) Arterial Blood Base Excess -3 mmol/L (-3-3) FiO2 21 Prothrombin Time 33.7 SEC (11.7-14.0) 36.0 SEC (11.7-14.0) Prothromb Time International Ratio 3.6 (0.8-1.1) 3.9 (0.8-1.1) Laboratory Tests Test 10/11/16 03:10 10/11/16 08:10 Prothrombin Time 33.7 SEC (11.7-14.0) 36.0 SEC (11.7-14.0) Prothromb Time International Ratio 3.6 (0.8-1.1) 3.9 (0.8-1.1) Sodium Level 135 mmol/L (136-145) Potassium Level 4.7 mmol/L (3.5-5.1) Chloride Level 104 mmol/L (98-107) Carbon Dioxide Level 26 mmol/L (21-32) Anion Gap 5 (6-14) Blood Urea Nitrogen 19 mg/dL (8-26) Creatinine 1.7 mg/dL (0.7-1.3) Estimated GFR (Cockcroft-Gault) 54.9 Glucose Level 93 mg/dL (70-99) Calcium Level 9.1 mg/dL (8.5-10.1) Phosphorus Level 3.7 mg/dL (2.6-4.7) Magnesium Level 1.8 mg/dL (1.8-2.4) Albumin 2.3 g/dL (3.4-5.0) Microbiology 10/06/16 Urine Culture - Final, Complete 10/06/16 Urine Culture Result 1 (MARISUZ) - Final, Complete Medications Current Medications Furosemide (Lasix) 80 mg 1X ONCE IVP Last administered on 10/06/16t 15:30; Start 10/06/16 at 15:30; Stop 10/06/16 at 15:31; Status DC Ondansetron HCl (Zofran) 4 mg PRN Q8HRS PRN IV NAUSEA/VOMITING; Start 10/06/16 at 16:45; Stop 10/07/16 at 16:44; Status DC Morphine Sulfate 4 mg PRN Q2HR PRN IV PAIN; Start 10/06/16 at 16:45; Stop 10/07 at 16:44; Status DC Nitroglycerin (Nitrostat) 0.4 mg PRN Q5MIN PRN SL CHEST PAIN; Start 10/06/16 at 16:45; Stop 10/07/16 at 16:44; Status DC Multivitamins 10 ml/Thiamine HCl 100 mg/Folic Acid 1 mg/Sodium Chloride 1,011.2 ml @ 100 mls/ hr DAILY IV Last administered on 10/06/16 18:27; Start at 17:00; Stop 10/06/16 at 21:37; Status DC Chlordiazepoxide (Librium) 25 mg Q6HRS PO Last administered on 10/08/16 00:18 ; Start 10/06/16 at 17:00; Stop 10/08/16 at 00:01; Status DC Nicotine (Nicoderm Cq 21mg) 1 patch DAILY TD Last administered on 10/11/16 09: 01; Start 10/07/16 at 09:00 Bupropion HCl (Wellbutrin) 100 mg BID PO Last administered on 10/11/16 09:00; Start 10/06/16 at 21:00 Furosemide (Lasix) 20 mg DAILY PO ; Start 10/07/16 at 09:00; Stop 10/07/16 at 09 :00; Status DC Haloperidol (Haldol) 5 mg DAILY PO Last administered on 10/10/16 08:55; Start 10/07/16 at 09:00; Stop 10/10/16 at 18:25; Status DC Magnesium Oxide (Magnesium Oxide) 400 mg DAILY PO Last administered on 09:01; Start 10/07/16 at 09:00 Pantoprazole Sodium (Protonix) 40 mg DAILYAC PO Last administered on 10/11/16 09:01; Start 10/07/16 at 07:30 Atorvastatin Calcium (Lipitor) 5 mg QHS PO Last administered on 10/10/16 21:15 ; Start 10/06/16 at 21:00 Amlodipine Besylate (Norvasc) 5 mg DAILY PO ; Start 10/07/16 at 09:00; Stop at 09:37; Status DC Lorazepam (Ativan) 2 mg PRN Q1HR PRN IV For CIWA 8-14; Start 10/06/16 at 21:30 Lorazepam (Ativan) 4 mg PRN Q1HR PRN IV For CIWA 15 or greater; Start 10/06/16 at 21:30 Thiamine Mononitrate (Vitamin B-1) 100 mg DAILY PO Last administered on 09:00; Start 10/06/16 at 21:45 Vitamin B Complex (Folbic Tablet) 1 tab DAILY PO Last administered on 09:00; Start 10/07/16 at 09:00 Furosemide (Lasix) 80 mg DAILY08 IVP Last administered on 10/08/16 09:17; Start 10/07/16 at 08:00; Stop 10/08/16 at 13:04; Status DC Magnesium Sulfate/ Dextrose 50 ml @ 25 mls/hr PRN DAILY PRN IV for Mag < 1.7 on am labs; Start 10/07/16 at 11:45 Phytonadione (Mephyton) 10 mg 1X ONCE PO Last administered on 10/08/16 14:04 ; Start 10/08/16 at 14:00; Stop 10/08/16 at 14:01; Status DC Iohexol (Omnipaque 300 Mg/ml) 75 ml 1X ONCE IV ; Start 10/08/16 at 17:15; Stop 10/08/16 at 17:16; Status DC Iohexol (Omnipaque 240 Mg/ml) 50 ml 1X ONCE PO Last administered on 10/08/16 18:10; Start 10/08/16 at 17:15; Stop 10/08/16 at 17:16; Status DC Info (Do NOT chart on this entry -- for MONITORING) 1 each PRN DAILY PRN MC SEE COMMENTS; Start 10/08/16 at 17:15; Stop 10/10/16 at 17:14; Status DC Magnesium Sulfate/ Dextrose 50 ml @ 25 mls/hr 1X ONCE IV Last administered on 10/09/16 09:44; Start 10/09/16 at 08:00; Stop 10/09/16 at 09:59; Status DC Furosemide (Lasix) 40 mg DAILY PO Last administered on 10/10/16 08:55; Start 10/09/16 at 11:00; Stop 10/10/16 at 11:07; Status DC Furosemide (Lasix) 40 mg BID92 PO Last administered on 10/11/16 09:01; Start 10/10/16 at 14:00 Haloperidol (Haldol) 5 mg PRN DAILY PRN PO AGITATION; Start 10/10/16 at 18:30 Active Scripts Active Lasix (Furosemide) 20 Mg Tablet 1 Tab PO DAILY Magnesium Oxide 400 Mg Tablet 1 Tab PO DAILY Reported Pravastatin Sodium 20 Mg Tablet 20 Mg PO DAILY Wellbutrin (Bupropion Hcl) 100 Mg Tablet Unknown Dose PO BID Haloperidol 2 Mg Tablet 5 Mg PO DAILY Prilosec (Omeprazole) 40 Mg Capsule.dr 40 Mg PO DAILY Exforge 5-160 Mg Tablet (Amlodipine/Valsartan) 1 Each Tablet Unknown Dose PO Vitals/I & O Vital Sign - Last 24 Hours 10/10/16 10/10/16 10/10/16 10/10/16 14:59 19:45 20:33 21:40 Temp 97.7 97.6 97.7 97.6 Pulse 94 96 Resp B/P (MAP) 132/62 (85) 137/66 (89) Pulse Ox 100 95 100 O2 Delivery Room Air Room Air Room Air BiPAP/CPAP 10/10/16 10/10/16 10/11/16 10/11/16 23:35 23:52 03:40 07:00 Temp 97.2 98.1 98.3 97.2 98.1 98.3 Pulse 92 98 92 Resp 24 B/P (MAP) 129/56 (80) 116/54 (74) 107/59 (75) Pulse Ox 100 100 97 100 O2 Delivery BiPAP/CPAP BiPAP/CPAP Room Air Room Air 10/11/16 10/11/16 08:00 11:28 Temp 97.5 97.5 Pulse 94 Resp 25 B/P (MAP) 129/79 (96) Pulse Ox 95 O2 Delivery Room Air Room Air Intake and Output 10/10/16 10/10/16 10/11/16 15:00 23:00 07:00 Intake Total 475 ml 910 ml 800 ml Output Total 600 ml 500 ml Balance 475 ml 310 ml 300 ml TONI GIORDANO MD October 11, 2016 12:33
[2016-10-11] MEDS ORDERED: FURO40TA4 PO (12:34)
--- NOTE | 2016-10-11 13:01 | PDOC ---
Subjective: Subjective: Breathing okay, doesn't say much. Objective: Vital Signs: Vital Signs Date Time Temp Pulse Resp B/P (MAP) Pulse Ox O2 Delivery O2 Flow Rate FiO2 10/11/16 11:28 97.5 94 25 129/79 (96) 95 Room Air 97.5 Labs: Laboratory Tests Test 10/11/16 03:10 10/11/16 08:10 Prothrombin Time 33.7 SEC 36.0 SEC Prothromb Time International Ratio 3.6 3.9 Sodium Level 135 mmol/L Potassium Level 4.7 mmol/L Chloride Level 104 mmol/L Carbon Dioxide Level 26 mmol/L Anion Gap 5 Blood Urea Nitrogen 19 mg/dL Creatinine 1.7 mg/dL Estimated GFR (Cockcroft-Gault) 54.9 Glucose Level 93 mg/dL Calcium Level 9.1 mg/dL Phosphorus Level 3.7 mg/dL Magnesium Level 1.8 mg/dL Albumin 2.3 g/dL PE: GEN: NAD, up to chair, generalized edema LUNGS: decreased HEART: distant +murm ABD: obese, distended NEURO/PSYCH: A & O 3, doesn't say much A/P: Coagulopathy, elevated LFTs -possibly 2/2 liver disease -cirrhosis on CT, neg Hepatitis panel -- INR rechecked today, 1:1 mix requested, r/o circulating anticoagulant - not sure if this was done, will check w/ lab. Note DC orders. STEFANY LLANOS October 11, 2016 13:01
--- NOTE | 2016-10-11 15:08 | PDOC ---
PULMONARY PROGRESS NOTES Subjective Pt feels better less soa Vitals Vital Signs Date Time Temp Pulse Resp B/P (MAP) Pulse Ox O2 Delivery O2 Flow Rate FiO2 10/11/16 11:28 97.5 94 25 129/79 (96) 95 Room Air 97.5 ROS: No Nausea, No Chest Pain, No Abdominal Pain, No Increase Cough General: Alert, No acute distress Lungs: Clear Cardiovascular: S1, S2 Abdomen: Other (obese) Extremities: Other (obese) Labs Laboratory Tests Test 10/10/16 03:57 10/10/16 10:50 10/11/16 03:10 10/11/16 08:10 Sodium Level 137 mmol/L (136-145) 135 mmol/L (136-145) Potassium Level 4.8 mmol/L (3.5-5.1) 4.7 mmol/L (3.5-5.1) Chloride Level 105 mmol/L (98-107) 104 mmol/L (98-107) Carbon Dioxide Level 24 mmol/L (21-32) 26 mmol/L (21-32) Anion Gap 8 (6-14) 5 (6-14) Blood Urea Nitrogen 23 mg/dL (8-26) 19 mg/dL (8-26) Creatinine 1.8 mg/dL (0.7-1.3) 1.7 mg/dL (0.7-1.3) Estimated GFR (Cockcroft-Gault) 51.4 54.9 Glucose Level 95 mg/dL (70-99) 93 mg/dL (70-99) Calcium Level 8.6 mg/dL (8.5-10.1) 9.1 mg/dL (8.5-10.1) Phosphorus Level 3.6 mg/dL (2.6-4.7) 3.7 mg/dL (2.6-4.7) Magnesium Level 1.8 mg/dL (1.8-2.4) 1.8 mg/dL (1.8-2.4) Albumin 2.2 g/dL (3.4-5.0) 2.3 g/dL (3.4-5.0) O2 Saturation 93 % (92-99) Arterial Blood pH 7.39 (7.35-7.45) Arterial Blood pCO2 at Patient Temp 36 mmHg (35-46) Arterial Blood pO2 at Patient Temp 76 mmHg (85-108) Arterial Blood HCO3 21 mmol/L (21-28) Arterial Blood Base Excess -3 mmol/L (-3-3) FiO2 21 Prothrombin Time 33.7 SEC (11.7-14.0) 36.0 SEC (11.7-14.0) Prothromb Time International Ratio 3.6 (0.8-1.1) 3.9 (0.8-1.1) Laboratory Tests Test 10/11/16 03:10 10/11/16 08:10 Prothrombin Time 33.7 SEC (11.7-14.0) 36.0 SEC (11.7-14.0) Prothromb Time International Ratio 3.6 (0.8-1.1) 3.9 (0.8-1.1) Sodium Level 135 mmol/L (136-145) Potassium Level 4.7 mmol/L (3.5-5.1) Chloride Level 104 mmol/L (98-107) Carbon Dioxide Level 26 mmol/L (21-32) Anion Gap 5 (6-14) Blood Urea Nitrogen 19 mg/dL (8-26) Creatinine 1.7 mg/dL (0.7-1.3) Estimated GFR (Cockcroft-Gault) 54.9 Glucose Level 93 mg/dL (70-99) Calcium Level 9.1 mg/dL (8.5-10.1) Phosphorus Level 3.7 mg/dL (2.6-4.7) Magnesium Level 1.8 mg/dL (1.8-2.4) Albumin 2.3 g/dL (3.4-5.0) Medications Active Scripts Medications Dose Route/Sig Max Daily Dose Days Date Category Pravastatin Sodium 20 Mg Tablet 20 Mg PO DAILY 10/06/16 Reported Lasix (Furosemide) 20 Mg Tablet 1 Tab PO DAILY 06/11/16 Rx Magnesium Oxide 400 Mg Tablet 1 Tab PO DAILY 06/11/16 Rx Wellbutrin (Bupropion Hcl) 100 Mg Tablet Unknown Dose PO BID 08/14/14 Reported Haloperidol 2 Mg Tablet 5 Mg PO DAILY 08/14/14 Reported Prilosec (Omeprazole) 40 Mg Capsule.dr 40 Mg PO DAILY 08/14/14 Reported Exforge 5-160 Mg Tablet (Amlodipine/Valsartan) 1 Each Tablet Unknown Dose PO 08/14/14 Reported Impression . 1. Dyspnea secondary to multifactorial etiologies and includes a combination of acute on chronic diastolic heart failure, underlying morbid obesity with cor pulmonale, suspected hepatopulmonary syndrome from cirrhosis and ongoing tobaccoism/chronic obstructive pulmonary disease. 2. Morbid obesity with suspected obstructive sleep apnea 3. Cirrhosis with coagulopathy. 4. Suspected hepatopulmonary syndrome. 5. Acute on chronic diastolic heart failure, improved on recent images. 6. Poor compliance. 7. Ongoing alcoholism. 8. Underlying schizophrenia. 9. Coagulopathy secondary to cirrhosis. Plan . resp status is compensated will continue the same 1. ABG NOTED NO ELEVATED C02 2. Continue diuresis. 3. Nebulizer treatments. 4. Minimize narcotics and benzos. 5. Difficult to treat this complex patient due to poor compliance and ongoing tobaccoism and alcoholism. 6. Follow GI recommendations. 7. Follow Cardiology recommendations. BAUDILIO FELIZ MD October 11, 2016 15:08
== END 2016-10-11 16:30 | disposition home or self-care (01) | DRG 682 ==
LOC: ER 13:25 → 2 NORTH 15:29
PROVIDERS: ADMIT Internal Medicine; ATTEND Internal Medicine
PROC: 5A09357 Assistance with Respiratory Ventilation, Less than 24 Consecutive Hours, Continuous Positive Airway Pressure (ICD-10-PCS; principal; 2016-10-10)
DX: N17.0 Acute kidney failure with tubular necrosis (principal); I50.33 Acute on chronic diastolic (congestive) heart failure; J96.20 Acute and chronic respiratory failure, unspecified whether with hypoxia or hypercapnia; D68.4 Acquired coagulation factor deficiency; E66.2 Morbid (severe) obesity with alveolar hypoventilation; I13.0 Hypertensive heart and chronic kidney disease with heart failure and stage 1 through stage 4 chronic kidney disease, or unspecified chronic kidney disease; Z68.44 Body mass index [BMI] 60.0-69.9, adult; D63.1 Anemia in chronic kidney disease; E78.00 Pure hypercholesterolemia, unspecified; E78.5 Hyperlipidemia, unspecified; F12.90 Cannabis use, unspecified, uncomplicated; F17.210 Nicotine dependence, cigarettes, uncomplicated; F20.9 Schizophrenia, unspecified; F32.9 Major depressive disorder, single episode, unspecified; F41.9 Anxiety disorder, unspecified; G47.33 Obstructive sleep apnea (adult) (pediatric); I27.81 Cor pulmonale (chronic); J44.9 Chronic obstructive pulmonary disease, unspecified; G43.909 Migraine, unspecified, not intractable, without status migrainosus; R16.0 Hepatomegaly, not elsewhere classified; R59.0 Localized enlarged lymph nodes; K21.9 Gastro-esophageal reflux disease without esophagitis; Y90.9 Presence of alcohol in blood, level not specified; K76.0 Fatty (change of) liver, not elsewhere classified; N18.3 Chronic kidney disease, stage 3 (moderate); Z82.49 Family history of ischemic heart disease and other diseases of the circulatory system; Z87.11 Personal history of peptic ulcer disease; Z91.19 Patient's noncompliance with other medical treatment and regimen; Z87.01 Personal history of pneumonia (recurrent); Z71.41 Alcohol abuse counseling and surveillance of alcoholic; Z88.6 Allergy status to analgesic agent; Z91.013 Allergy to seafood; K70.31 Alcoholic cirrhosis of liver with ascites
CPT/HCPCS: 36415; 36600; 71010; 74176; 76770; 80048; 80053; 80069; 81001; 82550; 82570; 82728; 82805; 83540; 83550; 83735; 83880; 84100; 84156; 84300; 84484; 84550; 85007; 85018; 85027; 85045; 85610; 85611; 87086; 93005; 94250; 94760; 96374; G0481; J1940; J7030; J7060; Q9966; 97110; 97116; 97535; 99285-25

== ENCOUNTER 2020-01-20 04:34 | Inpatient (IN) | payer OTHER, MEDICAID ==
[~2020-01-20] VITALS: Ht 177.8 cm; Wt 165.3 kg
[~2020-01-20 04:34] MED LIST changes: +FURO40TA4 PO; -MAGN400T3 PO; +MAGN400T5 PO; +PRAV20TA2 PO
--- NOTE | 2020-01-20 04:56 | PHYS DOC ---
Past Medical History Past Medical History: CHF, Depression, GERD, High Cholesterol, Hypertension, Schizophrenia, Other Additional Past Medical Histor: Psychosis (TUTU GIMENEZ DO) Past Surgical History: No Surgical History (TUTU GIMENEZ DO) Smoking Status: Current Every Day Smoker Alcohol Use: Heavy Drug Use: Marijuana (TUTU GIMENEZ DO) General Adult EDM: Chief Complaint: GENERALIZED BODY ACHES HPI: HPI: The history was obtained from the patient. Patient is a 39-year-old male with PMH CHF, schizophrenia, GERD, hyperlipidemia, hypertension who presents with a chief complaint of multiple complaints. Patient states he has had lower extremity pain and swelling over the past several days. He notes a history of heart failure and thinks he is having exacerbation of this. He notes slowly progressive shortness of breath. States it is difficult for him to lay flat and does endorse orthopnea. Denies any chest pain. Also notes swelling to the right periorbital region. States that this has occurred over the past 24 hours. He states he has a history of cyst in that location but it seems more swollen than normal. He states he cannot see out of his right eye due to the swelling. Denies any pain with eye movement. Denies fevers. Denies drainage of the wound. Denies any recent antibiotics. Denies any abdominal pain. Does note some mild scrotal swelling but denies pain. States he does get scrotal swelling at times with his heart failure. States he has been taking his diuretic as prescribed. Notes that he receives all his care at [facility]. No other complaints. (TUTU GIMENEZ DO) Review of Systems: Review of Systems: Constitutional: Denies fever or chills. [] Eyes: Denies change in visual acuity. [] HENT: Denies nasal congestion or sore throat. [] Respiratory: Positive for shortness of breath Cardiovascular: Positive for edema GI: Denies abdominal pain, nausea, vomiting, bloody stools or diarrhea. [] : Denies dysuria. [] Musculoskeletal: Denies back pain or joint pain. [] Integument: Denies rash. [] Neurologic: Denies headache, focal weakness or sensory changes. [] Endocrine: Denies polyuria or polydipsia. [] Lymphatic: Denies swollen glands. [] Psychiatric: Denies depression or anxiety. [] (TUTU GIMENEZ DO) Heart Score: Risk Factors: Risk Factors: DM, Current or recent (<one month) smoker, HTN, HLP, family history of CAD, obesity. Risk Scores: Score 0 - 3: 2.5% MACE over next 6 weeks - Discharge Home Score 4 - 6: 20.3% MACE over next 6 weeks - Admit for Clinical Observation Score 7 - 10: 72.7% MACE over next 6 weeks - Early Invasive Strategies (TUTU GIMENEZ DO) Allergies: Allergies: Allergies Coded Allergies Type Severity Reaction Last Updated Verified shellfish derived Allergy Intermediate 08/26/16 Yes NSAIDS (Non-Steroidal Anti-Inflamma Allergy Mild "told not to take" for GI concerns 09/23/13 Yes (TUTU GIMENEZ DO) Physical Exam: PE: Constitutional: Well developed, well nourished, no acute distress, non-toxic appearance. [] HENT: 2 x 2 centimeter localized area of fluctuance noted to the right superolateral periorbital region. Minimal erythema overlying. Minimal induration appreciated. Eyelid swollen shut. Slight injected conjunctive a on the right. No purulent drainage appreciated. Eyes: PERRLA, EOMI, conjunctiva normal, no discharge. [] Neck: Normal range of motion, no tenderness, supple, no stridor. [] Cardiovascular:Heart rate regular rhythm, no murmur [] Lungs & Thorax: Poor aeration overall. No obvious wheezes noted. Nontachypne ic. Speaking in full sentences. Abdomen: Soft, nontender, nonacute abdomen. No involuntary guarding or rigidity noted. No acute peritonitis. Ventral hernia palpated. Skin: Warm, dry, no erythema, no rash. [] Back: No tenderness, no CVA tenderness. [] Extremities: +2-4 pitting edema in the lower extremities bilaterally. Neurologic: Alert and oriented X 3, normal motor function, normal sensory functi on, no focal deficits noted. [] Psychologic: Affect normal, judgement normal, mood normal. [] (TUTU GIMENEZ DO) Current Patient Data: Labs: Laboratory Tests Test 01/20/20 05:00 01/20/20 05:25 White Blood Count 7.1 x10^3/uL Red Blood Count 3.01 x10^6/uL Hemoglobin 10.5 g/dL Hematocrit 30.6 % Mean Corpuscular Volume 102 fL Mean Corpuscular Hemoglobin 35 pg Mean Corpuscular Hemoglobin Concent 34 g/dL Red Cell Distribution Width 14.9 % Platelet Count 70 x10^3/uL Neutrophils (%) (Auto) 53 % Lymphocytes (%) (Auto) 26 % Monocytes (%) (Auto) 17 % Eosinophils (%) (Auto) 3 % Basophils (%) (Auto) 1 % Neutrophils # (Auto) 3.7 x10^3/uL Lymphocytes # (Auto) 1.8 x10^3/uL Monocytes # (Auto) 1.2 x10^3/uL Eosinophils # (Auto) 0.2 x10^3/uL Basophils # (Auto) 0.1 x10^3/uL Prothrombin Time 40.3 SEC Prothromb Time International Ratio 4.1 Sodium Level 136 mmol/L Potassium Level 3.8 mmol/L Chloride Level 101 mmol/L Carbon Dioxide Level 25 mmol/L Anion Gap 10 Blood Urea Nitrogen 12 mg/dL Creatinine 1.7 mg/dL Estimated GFR (Cockcroft-Gault) 54.0 BUN/Creatinine Ratio 7 Glucose Level 102 mg/dL Calcium Level 8.3 mg/dL Magnesium Level 1.2 mg/dL Total Bilirubin 2.8 mg/dL Aspartate Amino Transf (AST/SGOT) 105 U/L Alanine Aminotransferase (ALT/SGPT) 24 U/L Alkaline Phosphatase 271 U/L Troponin I Quantitative < 0.017 ng/mL JV-[id number]-Type Natriuretic Peptide 292 pg/mL Total Protein 9.3 g/dL Albumin 2.3 g/dL Albumin/Globulin Ratio 0.3 Lipase 249 U/L Urine Collection Type Unknown Urine Color Clementina Urine Clarity Clear Urine pH 6.0 Urine Specific Mcgee 1.015 Urine Protein 100 mg/dL Urine Glucose (UA) Negative mg/dL Urine Ketones (Stick) Negative mg/dL Urine Blood Large Urine Nitrite Negative Urine Bilirubin Small Urine Urobilinogen Dipstick 4.0 mg/dL Urine Leukocyte Esterase Negative Urine RBC Tntc /HPF Urine WBC Occ /HPF Urine Squamous Epithelial Cells Mod /LPF Urine Bacteria 0 /HPF Current Medications Medications (Trade) Dose Ordered Sig/Jarrett Route PRN Reason Start Time Stop Time Status Last Admin Dose Admin Iohexol (Omnipaque 300 Mg/ml) 60 ml 1X ONCE IV 01/20/20 06:00 01/20/20 06:01 DC Info (CONTRAST GIVEN -- Rx MONITORING) 1 each PRN DAILY PRN MC SEE COMMENTS 01/20/20 06:00 01/22/20 05:59 (TUTU GIMENEZ DO) EKG: EKG: EKG consistent with normal sinus rhythm. Ventricular rate of 85 bpm. [place] normal. Intervals normal. Small Q waves noted in lead III. No acute ischemic changes appreciated. [] (TUTU GIMENEZ DO) Radiology/Procedures: Radiology/Procedures: [] (TUTU GIMENEZ DO) Radiology/Procedures: IMAGING REPORT Signed PATIENT: TEO BIGGS ACCOUNT: [id number] : 1980 LOCATION: ER AGE: 39 SEX: M EXAM STATUS: REG ER ORD. PHYSICIAN: TUTU GIMENEZ DO REASON: R periorbital asbcess vs. cyst. eval for deep space involvement PROCEDURE: CT HEAD W/CONTRAST INDICATION: Reason: R periorbital asbcess vs. cyst. eval for deep space involvement / Spl. Instructions: OMNI 300, 60 ML IV / History: COMPARISON: None. TECHNIQUE: Axial CT images obtained through the head with contrast. One or more of the following individualized dose reduction techniques were utilized for this examination: 1. Automated exposure control; 2. Adjustment of the mA and/or kV according to patient size; 3. Use of iterative reconstruction technique. FINDINGS: No midline shift. Suprasellar cistern is not effaced. Scattered foci of low density within the white matter which is nonspecific but can be from chronic small vessel ischemic disease or sequela of migraine. Difficult assessment for hemorrhage given intravenous contrast. Preseptal soft tissue swelling with enhancement of the soft tissues. There is a rim-enhancing fluid collection lateral to the right orbit measuring approximately 16 mm. No retro-orbital fluid collection is seen. A portion of the subcutaneous soft tissue swelling is not seen secondary to it being outside of the field of view. IMPRESSION: * Subcutaneous soft tissue swelling is identified at the right side of the face including within the soft tissues anterior to the right orbit. There is a rim-enhancing fluid collection seen within the soft tissues lateral to the right orbit. Would favor abscess rather than cyst given the adjacent swelling of the soft tissues. This does not extend posterior to the globe. Electronically signed by: Polly Geiger MD (01/20/2020 6:32 AM) [id number] DICTATED and SIGNED BY: POLLY GEIGER MD DATE: 01/20/20 06 IMAGING REPORT Signed PATIENT: TEO BIGGS ACCOUNT: [id number] : 1980 LOCATION: ER AGE: 39 SEX: M EXAM STATUS: PRE ER ORD. PHYSICIAN: TUTU GIMENEZ DO REASON: SOB. h/o CHF PROCEDURE: CHEST AP ONLY INDICATION: Reason: SOB. h/o CHF / Spl. Instructions: / History: COMPARISON: September 2016 FINDINGS: Single view of chest obtained. Enlarged cardiomediastinal silhouette. Mild interstitial and groundglass opacities bilaterally. IMPRESSION: * Mild interstitial and groundglass opacities which could be from mild edema or interstitial infiltrate. * Enlarged cardiac silhouette again seen. Electronically signed by: Polly Geiger MD (01/20/2020 5:48 AM) [id number] DICTATED and SIGNED BY: POLLY GEIGER MD DATE: 01/20/20 0548 Indication: abscess Procedure: The patient was positioned appropriately. Local anesthesia was 1%lidocaine An incision was then made over the apex of the lesion and approximately 6cc purulent material was expressed. The drainage cavity was irrigated and packed with sterile gauze. The patients tetanus status updated as needed. The patient tolerated the procedure well. Complications: none. (YOSELIN MORRISON DO) Course & Med Decision Making: Course & Med Decision Making Pertinent Labs and Imaging studies reviewed. (See chart for details) Patient is a 39-year-old male with history of heart failure who presents with chief complaint of lower extremity swelling and shortness of breath. He also notes a swelling to his right periorbital region. Initial vital signs unremarkable. Physical exam noted above. EKG shows no acute ischemic changes. Laboratory analysis is pending at this time. Right periorbital region swelling may represent abscess versus cyst. CT imaging also pending. I do feel he will most likely require hospitalization for his breathing. I have signed out the patient's emergency department care to Dr. Morrison. We discussed the history, physical exam findings, completed and pending laboratory results and imaging studies. We have also discussed the current treatment plan and expected clinical course. Please refer to chart for the patient's remaining emergency department course, final disposition, and clinical impression(s). (TUTU GIMENEZ DO) Course & Med Decision Making Concern for right preseptal cellulitis with abscess (s/p I%D) over lateral upper eyebrow line, Started on clindamycin, sirs negative. Labs show stable macrocytic anemia that is increased from 2017, chronic kidney disease and elevated BNP 292, was 2300 in 2017. CXR showing GGO. Last echocardiogram was in August 2016 that showed normal LV systolic function, EF 60-65% and grossly normal LV segmental wall motion. Pending covid test. Pt not requiring any oxygen, speaking in full sentences. Will admit for echo, cardiology consultation. Pt stable at time of admission and agrees with this plan. (YOSELIN MORRISON DO) Dragon Disclaimer: Dragon Disclaimer: This electronic medical record was generated, in whole or in part, using a voice recognition dictation system. (TUTU GIMENEZ DO) Departure Departure Impression: Primary Impression: Dyspnea Additional Impressions: Lower extremity edema CKD (chronic kidney disease) Macrocytic anemia Abscess of right periorbital region Preseptal cellulitis of right eye Disposition: ADMITTED INPATIENT (Dr. Sandy) Condition: STABLE Referrals: ABIGAIL STERLING (PCP) Justicifation of Admission Dx: Justifications for Admission: Justification of Admission Dx: N/A (TUTU GIMENEZ DO) Justification of Admission Dx: Yes Comments: exertional dyspnea, weight gain/le edema, admit for echo (YOSELIN MORRISON DO) TUTU GIMENEZ DO Jan 20, 2020 04:56 YOSELIN MORRISON DO Jan 20, 2020 07:14
[2020-01-20 05:34] LABS: CALCIUM 8.3 mg/dL (8.5-10.1); CREATININE 1.7 mg/dL (0.7-1.3); POTASSIUM 3.8 mmol/L (3.5-5.1)
[2020-01-20 05:39] LABS: ALBUMIN 2.3 g/dL (3.4-5.0); ALBUMIN/GLOBULIN RATIO 0.3 (1.0-1.7); TOTAL BILIRUBIN 2.8 mg/dL (0.2-1.0); TOTAL PROTEIN 9.3 g/dL (6.4-8.2)
[2020-01-20 05:40] LABS: BILIRUBIN,URINE SMALL (NEG); CLARITY,URINE CLEAR; COLOR,URINE AMBER; NITRITE,URINE NEGATIVE (NEG); PROTEIN,URINE 100 mg/dL (NEG-TRACE)
[2020-01-20 05:43] LABS: BASO # 0.1 x10^3/uL (0.0-0.2); BASO % 1 % (0-3); EOS # 0.2 x10^3/uL (0.0-0.7); EOS % 3 % (0-3); HEMATOCRIT 30.6 % (39.0-53.0); HEMOGLOBIN 10.5 g/dL (13.0-17.5); LYMPH # 1.8 x10^3/uL (1.0-4.8); LYMPH % 26 % (24-48); MEAN CORPUSCULAR HEMOGLOBIN 35 pg (25-35); MEAN CORPUSCULAR HGB CONC 34 g/dL (31-37); MEAN CORPUSCULAR VOLUME 102 fL (79-100); MONO # 1.2 x10^3/uL (0.0-1.1); MONO % 17 % (0-9); NEUT # 3.7 x10^3/uL (1.8-7.7); NEUT % 53 % (31-73); PLATELET COUNT 70 x10^3/uL (140-400); RED BLOOD COUNT 3.01 x10^6/uL (4.30-5.70); RED CELL DISTRIBUTION WIDTH 14.9 % (11.5-14.5); WHITE BLOOD COUNT 7.1 x10^3/uL (4.0-11.0)
[2020-01-20 05:50] LABS: PROTHROMBIN TIME PATIENT 40.3 SEC (11.7-14.0)
--- NOTE | 2020-01-20 05:50 | RAD ---
INDICATION: Reason: SOB. h/o CHF / Spl. Instructions: / History: COMPARISON: September 2016 FINDINGS: Single view of chest obtained. Enlarged cardiomediastinal silhouette. Mild interstitial and groundglass opacities bilaterally. IMPRESSION: * Mild interstitial and groundglass opacities which could be from mild edema or interstitial infiltrate. * Enlarged cardiac silhouette again seen. Electronically signed by: Elkin Lacy MD (01/20/2020 5:48 AM) [id number]
[2020-01-20 05:52] LABS: BACTERIA,URINE 0 /HPF (0-FEW); RBC,URINE TNTC /HPF (0-2); SQUAMOUS EPITHELIAL CELL,UR MOD /LPF; WBC,URINE OCC /HPF (0-4)
[2020-01-20] MEDS ORDERED: CONTRAST GIVEN. MC PRN (06:00)
[2020-01-20] MEDS ORDERED: IOHEXOL 300 MG/ML 100ML VIAL. IV ONE (06:00)
--- NOTE | 2020-01-20 06:35 | RAD ---
INDICATION: Reason: R periorbital asbcess vs. cyst. eval for deep space involvement / Spl. Instructions: OMNI 300, 60 ML IV / History: COMPARISON: None. TECHNIQUE: Axial CT images obtained through the head with contrast. One or more of the following individualized dose reduction techniques were utilized for this examination: 1. Automated exposure control; 2. Adjustment of the mA and/or kV according to patient size; 3. Use of iterative reconstruction technique. FINDINGS: No midline shift. Suprasellar cistern is not effaced. Scattered foci of low density within the white matter which is nonspecific but can be from chronic small vessel ischemic disease or sequela of migraine. Difficult assessment for hemorrhage given intravenous contrast. Preseptal soft tissue swelling with enhancement of the soft tissues. There is a rim-enhancing fluid collection lateral to the right orbit measuring approximately 16 mm. No retro-orbital fluid collection is seen. A portion of the subcutaneous soft tissue swelling is not seen secondary to it being outside of the field of view. IMPRESSION: * Subcutaneous soft tissue swelling is identified at the right side of the face including within the soft tissues anterior to the right orbit. There is a rim-enhancing fluid collection seen within the soft tissues lateral to the right orbit. Would favor abscess rather than cyst given the adjacent swelling of the soft tissues. This does not extend posterior to the globe. Electronically signed by: Elkin Lacy MD (01/20/2020 6:32 AM) [id number]
[2020-01-20] MEDS ORDERED: LIDOCAINE 1% Multi-Dose 20 ML VIAL. INJ ONE (07:30)
[2020-01-20] MEDS ORDERED: CLINDAMYCIN 900MG PREMIX 50 ML IV ONE (07:30)
[2020-01-20] MEDS ORDERED: fentaNYL PF VIAL 100 MCG/2 ML VIAL IVP ONE (07:45)
[2020-01-20] MEDS ORDERED: DIPH,PERTUSS(ACELL),TET VAC/PF 0.5 ML SYRINGE. VAX IM ONE (08:30)
--- NOTE | 2020-01-20 09:57 | PDOC1 ---
History and Physical Date of Service: DOS: DATE: 01/20/20 TIME: 09:54 Chief Complaint: Chief Complain: Leg swelling History of Present Illness: HPI: Patient is a 39-year-old male with past medical history of CHF with unknown EF, schizophrenia, GERD, dyslipidemia, hypertension who comes with complaints of lower extremity pain and swelling over the past several days and also swelling in the right periorbital area which was incised and drained in the emergency department today. Patient is unsure of any recent medication changes or echo or catheterization done recently. Patient does endorse orthopnea and dyspnea upon exertion. Patient mainly receives all his medical care at [facility]. Denies vision changes, chest pain, abdominal pain, diarrhea, dysuria, or bloody stools. Past Medical/Surgical History: PMH/PSH: Past Medical History: EtOH Cirrhosis,CHF, Depression, GERD, High Cholesterol, Hypertension, Schizophrenia Past Surgical History: No Surgical History Allergies: Allergies: Coded Allergies: shellfish derived (Verified Allergy, Intermediate, 08/26/16) NSAIDS (Non-Steroidal Anti-Inflamma (Verified Allergy, Mild, "told not to take" for GI concerns, 09/23/13) Family History: Family History: Reviewed and none reported Social History: Social History: Smoking Status: Current Every Day Smoker Alcohol Use: Heavy Drug Use: Marijuana Current Medications: Current Medications Current Medications Iohexol (Omnipaque 300 Mg/ml) 60 ml 1X ONCE IV Last administered on 01/20/20at 06:00; Start 01/20/20 at 06:00; Stop 01/20/20 at 06:01; Status DC Info (CONTRAST GIVEN -- Rx MONITORING) 1 each PRN DAILY PRN MC SEE COMMENTS; Start 01/20/20 at 06:00; Stop 01/22/20 at 05:59 Clindamycin Phosphate 50 ml @ 100 mls/hr 1X ONCE IV Last administered on 01/20/20at 07:52; Start 01/20/20 at 07:30; Stop 01/20/20 at 07:59; Status DC Lidocaine HCl (Lidocaine 1% 20ml Vial) 5 ml 1X ONCE INJ Last administered on 01/20/20at 07:53; Start 01/20/20 at 07:30; Stop 01/20/20 at 07:31; Status DC Fentanyl Citrate (Fentanyl 2ml Vial) 50 mcg 1X ONCE IVP Last administered on 01/20/20at 07:52; Start 01/20/20 at 07:45; Stop 01/20/20 at 07:46; Status DC Diphtheria/ Tetanus/Acell Pertussis (ADACEL TDap SYRINGE) 0.5 ml ONCE ONCE VAX IM Last administered on 01/20/20at 09:18; Start 01/20/20 at 08:30; Stop 01/20/20 at 08:31; Status DC Active Scripts Active Furosemide 40 Mg Tablet 40 Mg PO [id number] 30 Days Magnesium Oxide 400 Mg Tablet 1 Tab PO DAILY Reported Pravastatin Sodium 20 Mg Tablet 20 Mg PO DAILY Wellbutrin (Bupropion Hcl) 100 Mg Tablet Unknown Dose PO BID Haloperidol 2 Mg Tablet 5 Mg PO DAILY Prilosec (Omeprazole) 40 Mg Capsule.dr 40 Mg PO DAILY ROS: Review of Systems Review of System REVIEW OF SYSTEMS: GENERAL: Denies weakness SKIN: No bruising, hair changes or rashes. EYES: No blurred, double or loss of vision. NOSE AND THROAT: No history of nosebleeds, hoarseness or sore throat. HEART: No history of palpitations, chest pain or shortness of breath on exertion. LUNGS: Denies cough, hemoptysis, wheezing or shortness of breath. GASTROINTESTINAL: Denies changes in appetite, nausea, vomiting, diarrhea or constipation. GENITOURINARY: No history of frequency, urgency, hesitancy or nocturia. NEUROLOGIC: Denies history of numbness, tingling, or tremor. PSYCHIATRIC: No history of panic, anxiety or depression. ENDOCRINE: No history of heat or cold intolerance, polyuria or polydipsia. EXTREMITIES: Denies joint pain, pain on walking or stiffness. Physical Exam: Vital Signs: Vital Signs Date Time Temp Pulse Resp B/P (MAP) Pulse Ox O2 Delivery O2 Flow Rate FiO2 01/20/20 06:14 88 133/57 (82) Room Air 01/20/20 06:03 96 01/20/20 04:36 98.9 20 98.9 Physcial Exam: GEN: No apparent distress. Alert and oriented HEENT: Normal cephalic, atraumatic, external auditory canals are patent EYES: Extraocular muscles are intact, pupil are equally round and reactive to light and accommodation MUSCULOSKELETAL: Well developed , well nourished, good range of motion ENDOCRINE: No thyromegaly was palpated LYMPHATICS: No cervical chain or axillary nodes were noted HEMATOPOIETIC: No bruising NECK: Supple, no JVD, no thyromegaly was noted LUNGS: Clear to auscultation in all lung nguyen without rhonchi or wheezing HEART: RRR, S!, S2 present. Peripheral pulses intact, no obvious murmurs noted ABDOMEN: Soft, nontender. Positive bowel sounds, no organomegaly, normal bowel sounds EXTREMITIES: Without clubbing, cyanosis, or edema. Pedal pulses intact. Negative Homans sign NEUROLOGIC: Normal speech and tone. A&O x 3, moves all extremities, no obvious focal deficits PSYCHIATRIC: Normal affect, normal mood. Stable SKIN: No ulcerations or rashes, good skin turgor, no jaundice VASCULAR: Good capillary refill, neurovascular bundle appears to be intact Labs: Labs: Laboratory Tests Test 01/20/20 05:00 01/20/20 05:25 White Blood Count 7.1 x10^3/uL (4.0-11.0) Red Blood Count 3.01 x10^6/uL (4.30-5.70) Hemoglobin 10.5 g/dL (13.0-17.5) Hematocrit 30.6 % (39.0-53.0) Mean Corpuscular Volume 102 fL (79-100) Mean Corpuscular Hemoglobin 35 pg (25-35) Mean Corpuscular Hemoglobin Concent 34 g/dL (31-37) Red Cell Distribution Width 14.9 % (11.5-14.5) Platelet Count 70 x10^3/uL (140-400) Neutrophils (%) (Auto) 53 % (31-73) Lymphocytes (%) (Auto) 26 % (24-48) Monocytes (%) (Auto) 17 % (0-9) Eosinophils (%) (Auto) 3 % (0-3) Basophils (%) (Auto) 1 % (0-3) Neutrophils # (Auto) 3.7 x10^3/uL (1.8-7.7) Lymphocytes # (Auto) 1.8 x10^3/uL (1.0-4.8) Monocytes # (Auto) 1.2 x10^3/uL (0.0-1.1) Eosinophils # (Auto) 0.2 x10^3/uL (0.0-0.7) Basophils # (Auto) 0.1 x10^3/uL (0.0-0.2) Prothrombin Time 40.3 SEC (11.7-14.0) Prothromb Time International Ratio 4.1 (0.8-1.1) Sodium Level 136 mmol/L (136-145) Potassium Level 3.8 mmol/L (3.5-5.1) Chloride Level 101 mmol/L (98-107) Carbon Dioxide Level 25 mmol/L (21-32) Anion Gap 10 (6-14) Blood Urea Nitrogen 12 mg/dL (8-26) Creatinine 1.7 mg/dL (0.7-1.3) Estimated GFR (Cockcroft-Gault) 54.0 BUN/Creatinine Ratio 7 (6-20) Glucose Level 102 mg/dL (70-99) Calcium Level 8.3 mg/dL (8.5-10.1) Magnesium Level 1.2 mg/dL (1.8-2.4) Total Bilirubin 2.8 mg/dL (0.2-1.0) Aspartate Amino Transf (AST/SGOT) 105 U/L (15-37) Alanine Aminotransferase (ALT/SGPT) 24 U/L (16-63) Alkaline Phosphatase 271 U/L (46-116) Troponin I Quantitative < 0.017 ng/mL (0.000-0.055) MV-Bpq-B-Type Natriuretic Peptide 292 pg/mL (0-124) Total Protein 9.3 g/dL (6.4-8.2) Albumin 2.3 g/dL (3.4-5.0) Albumin/Globulin Ratio 0.3 (1.0-1.7) Lipase 249 U/L (73-393) Urine Collection Type Unknown Urine Color Clementina Urine Clarity Clear Urine pH 6.0 (<5.0-8.0) Urine Specific [place] 1.015 (1.000-1.030) Urine Protein 100 mg/dL (NEG-TRACE) Urine Glucose (UA) Negative mg/dL (NEG) Urine Ketones (Stick) Negative mg/dL (NEG) Urine Blood Large (NEG) Urine Nitrite Negative (NEG) Urine Bilirubin Small (NEG) Urine Urobilinogen Dipstick 4.0 mg/dL (0.2 mg/dL) Urine Leukocyte Esterase Negative (NEG) Urine RBC Tntc /HPF (0-2) Urine WBC Occ /HPF (0-4) Urine Squamous Epithelial Cells Mod /LPF Urine Bacteria 0 /HPF (0-FEW) Laboratory Tests Test 01/20/20 05:00 01/20/20 05:25 White Blood Count 7.1 x10^3/uL (4.0-11.0) Red Blood Count 3.01 x10^6/uL (4.30-5.70) Hemoglobin 10.5 g/dL (13.0-17.5) Hematocrit 30.6 % (39.0-53.0) Mean Corpuscular Volume 102 fL (79-100) Mean Corpuscular Hemoglobin 35 pg (25-35) Mean Corpuscular Hemoglobin Concent 34 g/dL (31-37) Red Cell Distribution Width 14.9 % (11.5-14.5) Platelet Count 70 x10^3/uL (140-400) Neutrophils (%) (Auto) 53 % (31-73) Lymphocytes (%) (Auto) 26 % (24-48) Monocytes (%) (Auto) 17 % (0-9) Eosinophils (%) (Auto) 3 % (0-3) Basophils (%) (Auto) 1 % (0-3) Neutrophils # (Auto) 3.7 x10^3/uL (1.8-7.7) Lymphocytes # (Auto) 1.8 x10^3/uL (1.0-4.8) Monocytes # (Auto) 1.2 x10^3/uL (0.0-1.1) Eosinophils # (Auto) 0.2 x10^3/uL (0.0-0.7) Basophils # (Auto) 0.1 x10^3/uL (0.0-0.2) Prothrombin Time 40.3 SEC (11.7-14.0) Prothromb Time International Ratio 4.1 (0.8-1.1) Sodium Level 136 mmol/L (136-145) Potassium Level 3.8 mmol/L (3.5-5.1) Chloride Level 101 mmol/L (98-107) Carbon Dioxide Level 25 mmol/L (21-32) Anion Gap 10 (6-14) Blood Urea Nitrogen 12 mg/dL (8-26) Creatinine 1.7 mg/dL (0.7-1.3) Estimated GFR (Cockcroft-Gault) 54.0 BUN/Creatinine Ratio 7 (6-20) Glucose Level 102 mg/dL (70-99) Calcium Level 8.3 mg/dL (8.5-10.1) Magnesium Level 1.2 mg/dL (1.8-2.4) Total Bilirubin 2.8 mg/dL (0.2-1.0) Aspartate Amino Transf (AST/SGOT) 105 U/L (15-37) Alanine Aminotransferase (ALT/SGPT) 24 U/L (16-63) Alkaline Phosphatase 271 U/L (46-116) Troponin I Quantitative < 0.017 ng/mL (0.000-0.055) BE-Hpk-L-Type Natriuretic Peptide 292 pg/mL (0-124) Total Protein 9.3 g/dL (6.4-8.2) Albumin 2.3 g/dL (3.4-5.0) Albumin/Globulin Ratio 0.3 (1.0-1.7) Lipase 249 U/L (73-393) Urine Collection Type Unknown Urine Color Clementina Urine Clarity Clear Urine pH 6.0 (<5.0-8.0) Urine Specific [place] 1.015 (1.000-1.030) Urine Protein 100 mg/dL (NEG-TRACE) Urine Glucose (UA) Negative mg/dL (NEG) Urine Ketones (Stick) Negative mg/dL (NEG) Urine Blood Large (NEG) Urine Nitrite Negative (NEG) Urine Bilirubin Small (NEG) Urine Urobilinogen Dipstick 4.0 mg/dL (0.2 mg/dL) Urine Leukocyte Esterase Negative (NEG) Urine RBC Tntc /HPF (0-2) Urine WBC Occ /HPF (0-4) Urine Squamous Epithelial Cells Mod /LPF Urine Bacteria 0 /HPF (0-FEW) Images: Images CXR IMPRESSION: * Mild interstitial and groundglass opacities which could be from mild edema or interstitial infiltrate. * Enlarged cardiac silhouette again seen. HEAD CT IMPRESSION: * Subcutaneous soft tissue swelling is identified at the right side of the face including within the soft tissues anterior to the right orbit. There is a rim-enhancing fluid collection seen within the soft tissues lateral to the right orbit. Would favor abscess rather than cyst given the adjacent swelling of the soft tissues. This does not extend posterior to the globe. Assessment/Plan Assessment/Plan Periorbital cellulitis status post I&D 01/20/2020 Bilateral lower extremity swelling concerning for CHF exacerbation History of EtOH cirrhosis Dyslipidemia Hypertension Morbid obesity GERD Severe malnutrition Admit to medicine Pending abdominal ultrasound Pending hepatitis panel Pending echo Appreciate cardiology recommendations IV Lasix x1 Strict I's and O's Lovenox for DVT prophylaxis Protonix GI prophylaxis ADA diet Full code Discussed with RN and SW Disposition pending cardiology evaluation and echo Surrogate decision maker is the self Justifications for Admission Other Justification LOLIS ANGELES MD Jan 20, 2020 09:57
[2020-01-20] MEDS ORDERED: MAGNESIUM SULFATE 2GM 50 ML IV ONE (11:30)
[2020-01-20 13:00] VITALS: BP 152/90
[2020-01-20 15:06] VITALS: BP 154/84
[2020-01-20] MEDS ORDERED: CARV3.1210 PO (16:09)
[2020-01-20] MEDS ORDERED: FOLI20CA PO (16:09)
[2020-01-20] MEDS ORDERED: CETI10TA16 PO (16:09)
[2020-01-20] MEDS ORDERED: LACT20SO PO (16:09)
[2020-01-20] MEDS ORDERED: POTA8CAP19 PO (16:09)
[2020-01-20] MEDS ORDERED: FUROSEMIDE 40 MG/4 ML VIAL. IVP ONE (16:15)
[2020-01-20] MEDS ORDERED: MAGNESIUM SULFATE 2GM 50 ML IV PRN (16:15)
[2020-01-20] MEDS ORDERED: MORPHINE SULFATE 2 MG/ML VIAL. IV PRN (16:15)
[2020-01-20] MEDS ORDERED: DOCUSATE SODIUM 100 MG CAPSULE. PO PRN (16:15)
[2020-01-20] MEDS ORDERED: SENNOSIDES 8.6 MG TABLET PO PRN (16:15)
[2020-01-20] MEDS ORDERED: DEXTROSE 50% 25 GM / 50ML DISP.SYRIN. IV PRN (16:15)
[2020-01-20] MEDS ORDERED: POTASSIUM CHLORIDE 20 MEQ TABLET.ER. PO PRN (16:15)
[2020-01-20] MEDS ORDERED: POTASSIUM CHLORIDE 10MEQ 100 ML IV PRN ×2 (16:15)
[2020-01-20] MEDS ORDERED: ONDANSETRON PF 4 MG/2 ML VIAL. IVP PRN (16:15)
[2020-01-20] MEDS ORDERED: MAGNESIUM OXIDE 400 MG TABLET PO ONE (16:45)
[2020-01-20] MEDS: INSULIN LISPRO 300 UNITS/3 ML VIAL. SQ SCH (17:00)
[2020-01-20] MEDS: PANTOPRAZOLE 40 MG TABLET.DR. PO SCH (17:02)
[2020-01-20] MEDS: DOXYCYCLINE HYCLATE 100 MG TABLET PO SCH (17:02)
[2020-01-20 19:00] VITALS: BP 152/79
[2020-01-20] MEDS ORDERED: MAGNESIUM OXIDE 400 MG TABLET PO PRN (21:00)
[2020-01-20] MEDS: NICOTINE 7MG PATCH. TD SCH (21:53)
[2020-01-20 23:00] VITALS: BP 158/79
[2020-01-21] MEDS: FOLIC ACID 1 MG TABLET. PO SCH ×2 (00:03→10:15)
[2020-01-21] MEDS: MULTIVITAMIN with MINERAL TABLET. PO SCH ×2 (00:03→10:16)
[2020-01-21] MEDS: THIAMINE 100 MG TABLET. PO SCH ×2 (00:03→10:16)
[2020-01-21 03:00] VITALS: BP 168/88
[2020-01-21 05:20] LABS: BASO # 0.1 x10^3/uL (0.0-0.2); BASO % 1 % (0-3); EOS # 0.2 x10^3/uL (0.0-0.7); EOS % 2 % (0-3); HEMATOCRIT 30.6 % (39.0-53.0); HEMOGLOBIN 10.4 g/dL (13.0-17.5); LYMPH # 1.2 x10^3/uL (1.0-4.8); LYMPH % 18 % (24-48); MEAN CORPUSCULAR HEMOGLOBIN 34 pg (25-35); MEAN CORPUSCULAR HGB CONC 34 g/dL (31-37); MEAN CORPUSCULAR VOLUME 100 fL (79-100); MONO # 1.2 x10^3/uL (0.0-1.1); MONO % 17 % (0-9); NEUT # 4.2 x10^3/uL (1.8-7.7); NEUT % 62 % (31-73); PLATELET COUNT 61 x10^3/uL (140-400); RED BLOOD COUNT 3.06 x10^6/uL (4.30-5.70); RED CELL DISTRIBUTION WIDTH 14.9 % (11.5-14.5); WHITE BLOOD COUNT 6.8 x10^3/uL (4.0-11.0)
[2020-01-21 05:38] LABS: CALCIUM 8.7 mg/dL (8.5-10.1); CREATININE 1.2 mg/dL (0.7-1.3); GFR 80.7; MAGNESIUM 1.3 mg/dL (1.8-2.4); PHOSPHORUS 2.7 mg/dL (2.6-4.7); POTASSIUM 3.3 mmol/L (3.5-5.1)
[2020-01-21 07:00] VITALS: BP 151/87
[2020-01-21] MEDS: PANTOPRAZOLE 40 MG TABLET.DR. PO SCH (07:41)
[2020-01-21] MEDS: INSULIN LISPRO 300 UNITS/3 ML VIAL. SQ SCH ×3 (08:00→17:00)
[2020-01-21] MEDS: DOXYCYCLINE HYCLATE 100 MG TABLET PO SCH (10:16)
[2020-01-21] MEDS: NICOTINE 7MG PATCH. TD SCH (10:19)
[2020-01-21 11:00] VITALS: BP 187/102
--- NOTE | 2020-01-21 11:19 | EKG ---
[facility] [address] [place] [address] Test Date: 2020-01-20 Test Time: 04:52:57 Pat Name: TEO BIGGS Department: Room: Gender: M Bus Matron: : 1980 Requested By: TUTU GIMENEZ Order Number: [id number] Reading MD: Measurements Intervals Worden Rate: 85 P: 56 CT: 170 QRS: 38 QRSD: 94 T: 38 QT: 398 QTc: 474 Interpretive Statements SINUS RHYTHM PROLONGED QT NO SPECIFIC ECG ABNORMALITIES RI6.02 No previous ECG available for comparison
--- NOTE | 2020-01-21 11:39 | PDOC2 ---
CARDIOLOGY CONSULT NOTE DATE OF SERVICE: DATE: 01/21/20 TIME: 11:29 CHIEF COMPLAINT: Shortness of breath HPI: Ashok is a pleasant 39-year-old man who is been admitted to the hospital for heart failure symptoms including lower extremity swelling and dyspnea. He was recently seen by heart failure center for diastolic heart failure. He had an echocardiogram in October 2019 which revealed normal ejection fraction. Prior evaluation for infiltrative cardiomyopathy was also unremarkable. He was advised to stop alcohol use, increase his diuretics and monitor himself closely and also pursue a sleep apnea evaluation. Unfortunately, it appears that based on the previous notes he has had poor compliance with his medications and has had difficulty with follow-up. Currently has been admitted for heart failure exacerbation and is a person under interest for possible COVID-19 pneumonia. PMHX: 1. Chronic kidney disease 2. Hypertension 3. Diastolic heart failure, ejection fraction 60% 4. Schizophrenia 5. Substance abuse including tobacco abuse 6. Possible obstructive sleep apnea 7. Morbid obesity SOCHX: As noted above FAMHX: Noncontributory CURRENT MEDS: Current Medications Medications (Trade) Dose Ordered Sig/Jarrett Route PRN Reason Start Time Stop Time Status Last Admin Dose Admin Magnesium Sulfate 50 ml @ 25 mls/hr 1X ONCE IV 01/20/20 11:30 01/20/20 13:29 DC 01/20/20 12:00 Morphine Sulfate (Morphine Sulfate) 2 mg PRN Q2HR PRN IV PAIN 01/20/20 16:15 01/20/20 19:58 Enoxaparin Sodium (Lovenox 60mg Syringe) 60 mg Q12HR SQ 01/20/20 17:00 01/20/20 17:04 Furosemide (Lasix) 40 mg 1X ONCE IVP 01/20/20 16:15 01/20/20 16:16 DC 01/20/20 17:02 Pantoprazole Sodium (Protonix) 40 mg DAILYAC PO 01/20/20 17:00 01/21/20 07:41 Doxycycline Hyclate (Vibra-Tab) 100 mg BID PO 01/20/20 17:00 01/21/20 10:16 Magnesium Oxide (Magnesium Oxide) 800 mg 1X ONCE PO 01/20/20 16:45 01/20/20 16:59 DC 01/20/20 17:07 Nicotine (Nicoderm Cq 7mg) 1 patch DAILY TD 01/20/20 22:00 01/21/20 10:19 Multivitamins (Thera M Plus) 1 tab DAILY PO 01/20/20 22:30 01/21/20 10:16 Folic Acid (Folic Acid) 1 mg DAILY PO 01/20/20 22:30 01/21/20 10:15 Thiamine Mononitrate (Vitamin B-1) 100 mg DAILY PO 01/20/20 22:30 01/21/20 10:16 Lorazepam (Ativan) 2 mg Q6H PO 01/20/20 22:00 01/22/20 04:01 01/21/20 10:18 ALLERGIES: Allergies Coded Allergies Type Severity Reaction Last Updated Verified shellfish derived Allergy Intermediate 08/26/16 Yes NSAIDS (Non-Steroidal Anti-Inflamma Allergy Mild "told not to take" for GI concerns 09/23/13 Yes ROS: Negative unless otherwise mentioned above in HPI PHYSICAL EXAM: Vital Signs/I&O: Vital Signs Date Time Temp Pulse Resp B/P (MAP) Pulse Ox O2 Delivery O2 Flow Rate FiO2 01/21/20 07:48 Room Air 01/21/20 07:00 99.0 89 18 151/87 (108) 98 99.0 I & O 01/20/20 01/20/20 01/21/20 15:00 23:00 07:00 Intake Total 50 ml 1100 ml 0 ml Output Total 1025 ml 400 ml Balance 50 ml 75 ml -400 ml Physical Exam: On examination he is in no acute distress, he is morbidly obese Skin is warm to touch HEENT exam is unremarkable Neck veins are elevated at 10 cm No respiratory distress with bilateral rhonchi Normal S1-S2 with a regular rhythm no obvious murmurs 1+ bilateral lower extremity edema with diminished and symmetric pedal pulses No obvious abdominal tenderness or masses appreciated Alert and oriented x3 with no focal neurologic deficits DIAGNOSTIC TESTING: Laboratory studies reviewed including elevated INR at 4.1 Chronic anemia noted INR of 1.5 on 01/08/2020 at [facility] Echocardiogram from [facility] in October was unremarkable ASSESSMENT: 1. Acute on chronic diastolic heart failure 2. Possible coagulopathy with concern for cirrhosis versus cardiac pathology leading to secondary cirrhosis 3. Multiple cardiovascular comorbidities as noted above PLAN: 1. His medications at the outside facility where he was seen by the heart failure center include the following: Bumex 2 mg p.o. twice daily, carvedilol 3.125 mg p.o. twice daily, pravastatin 2 0 mg daily, spironolactone 50 mg twice daily. -Given that the patient has adequate blood pressure and stable renal function would reinitiate his Bumex and spironolactone therapies and monitor. -Await GI evaluation for cirrhosis. HUAN KELLER MD Jan 21, 2020 11:39
--- NOTE | 2020-01-21 12:33 | NUR ---
Pts R eye I/D incision noted to have sanguineous drainage. Pt reports to this RN that "the infectious disease doctor just messed with it." Dressing is dry, drainage leaking from the bottom of the dressing. Pt sitting at the edge of the bed eating lunch. Dr. Richardson on the floor, this RN notified him in person of this change. Dr. Richardson stated he would "take a look at it." Will continue to monitor pt closely for any changes.
[2020-01-21] MEDS ORDERED: MAGNESIUM SULFATE 4GM 100 ML IV ONE (12:45)
[2020-01-21] MEDS ORDERED: POTASSIUM CHLORIDE 20 MEQ TABLET.ER. PO ONE (12:45)
--- NOTE | 2020-01-21 12:46 | PDOC ---
[facility] PROGRESS NOTE Date of Service DOS: DATE: 01/21/20 TIME: 12:42 Chief Complaint Chief Complaint A/P: Right supraorbital abscess - s/p I&D on 01/19 Preseptal/Periorbital cellulitis - on oral doxycycline Chronic diastolic CHF CKD HTN Schizophrenia Morbid obesity Tobacco abuse ETOH abuse ?Cirrhosis Severe protein calorie malnutrition Hypokalemia Hypomagnesemia History of Present Illness History of Present Illness Mr Mancini is a 39-year-old male with past medical history of CHF with unknown EF, schizophrenia, GERD, dyslipidemia, hypertension who comes with complaints of lower extremity pain and swelling over the past several days and also swelling in the right periorbital area which was incised and drained in the emergency department on 01/20/2020 Patient is unsure of any recent medication changes or echo or catheterization done recently. Patient does endorse orthopnea and dyspnea upon exertion. Patient mainly receives all his medical care at [facility]. Denies vision changes, chest pain, abdominal pain, diarrhea, dysuria, or bloody stools. COVID 19 negative. Mg 1.3, K 3.3 today. Afebrile. His right eye feels less swollen to him today, some oozing laterally. ID has covered with 2 antibiotics, daptomycin and zosyn. Will monitor to see if addition of steroids is necessary. Vitals/I&O Vitals/I&O: Vital Signs Date Time Temp Pulse Resp B/P (MAP) Pulse Ox O2 Delivery O2 Flow Rate FiO2 01/21/20 07:48 Room Air 01/21/20 07:00 99.0 89 18 151/87 (108) 98 99.0 I & O 01/20/20 01/20/20 01/21/20 15:00 23:00 07:00 Intake Total 50 ml 1100 ml 0 ml Output Total 1025 ml 400 ml Balance 50 ml 75 ml -400 ml Physical Exam General: Alert Lungs: Clear Labs Labs: Laboratory Tests Test 01/20/20 15:15 01/20/20 17:08 01/20/20 20:06 01/21/20 04:35 Magnesium Level 1.6 mg/dL (1.8-2.4) 1.3 mg/dL (1.8-2.4) Glucose (Fingerstick) 95 mg/dL (70-99) 122 mg/dL (70-99) White Blood Count 6.8 x10^3/uL (4.0-11.0) Red Blood Count 3.06 x10^6/uL (4.30-5.70) Hemoglobin 10.4 g/dL (13.0-17.5) Hematocrit 30.6 % (39.0-53.0) Mean Corpuscular Volume 100 fL (79-100) Mean Corpuscular Hemoglobin 34 pg (25-35) Mean Corpuscular Hemoglobin Concent 34 g/dL (31-37) Red Cell Distribution Width 14.9 % (11.5-14.5) Platelet Count 61 x10^3/uL (140-400) Neutrophils (%) (Auto) 62 % (31-73) Lymphocytes (%) (Auto) 18 % (24-48) Monocytes (%) (Auto) 17 % (0-9) Eosinophils (%) (Auto) 2 % (0-3) Basophils (%) (Auto) 1 % (0-3) Neutrophils # (Auto) 4.2 x10^3/uL (1.8-7.7) Lymphocytes # (Auto) 1.2 x10^3/uL (1.0-4.8) Monocytes # (Auto) 1.2 x10^3/uL (0.0-1.1) Eosinophils # (Auto) 0.2 x10^3/uL (0.0-0.7) Basophils # (Auto) 0.1 x10^3/uL (0.0-0.2) Sodium Level 136 mmol/L (136-145) Potassium Level 3.3 mmol/L (3.5-5.1) Chloride Level 101 mmol/L (98-107) Carbon Dioxide Level 28 mmol/L (21-32) Anion Gap 7 (6-14) Blood Urea Nitrogen 12 mg/dL (8-26) Creatinine 1.2 mg/dL (0.7-1.3) Estimated GFR (Cockcroft-Gault) 80.7 Glucose Level 97 mg/dL (70-99) Calcium Level 8.7 mg/dL (8.5-10.1) Phosphorus Level 2.7 mg/dL (2.6-4.7) Test 01/21/20 08:51 01/21/20 12:40 Glucose (Fingerstick) 112 mg/dL (70-99) 118 mg/dL (70-99) Assessment and Plan Assessmemt and Plan Problems Medical Problems: (1) Abscess of right periorbital region Status: Acute (2) CKD (chronic kidney disease) Status: Acute (3) Dyspnea Status: Acute (4) Lower extremity edema Status: Acute (5) Macrocytic anemia Status: Acute (6) Preseptal cellulitis of right eye Status: Acute Comment Review of Relevant I have reviewed the following items maci (where applicable) has been applied. Medications: Current Medications Medications (Trade) Dose Ordered Sig/Jarrett Route PRN Reason Start Time Stop Time Status Last Admin Dose Admin Morphine Sulfate (Morphine Sulfate) 2 mg PRN Q2HR PRN IV PAIN 01/20/20 16:15 01/20/20 19:58 Enoxaparin Sodium (Lovenox 60mg Syringe) 60 mg Q12HR SQ 01/20/20 17:00 01/20/20 17:04 Furosemide (Lasix) 40 mg 1X ONCE IVP 01/20/20 16:15 01/20/20 16:16 DC 01/20/20 17:02 Pantoprazole Sodium (Protonix) 40 mg DAILYAC PO 01/20/20 17:00 01/21/20 07:41 Doxycycline Hyclate (Vibra-Tab) 100 mg BID PO 01/20/20 17:00 01/21/20 10:16 Magnesium Oxide (Magnesium Oxide) 800 mg 1X ONCE PO 01/20/20 16:45 01/20/20 16:59 DC 01/20/20 17:07 Nicotine (Nicoderm Cq 7mg) 1 patch DAILY TD 01/20/20 22:00 01/21/20 10:19 Multivitamins (Thera M Plus) 1 tab DAILY PO 01/20/20 22:30 01/21/20 10:16 Folic Acid (Folic Acid) 1 mg DAILY PO 01/20/20 22:30 01/21/20 10:15 Thiamine Mononitrate (Vitamin B-1) 100 mg DAILY PO 01/20/20 22:30 01/21/20 10:16 Lorazepam (Ativan) 2 mg Q6H PO 01/20/20 22:00 01/22/20 04:01 01/21/20 10:18 Justifications for Admission Other Justification KATHLEEN ALEXIS MD Jan 21, 2020 12:46
[2020-01-21] MEDS ORDERED: LACT10SO35 PO (12:48)
[2020-01-21] MEDS ORDERED: CARV3.123 PO (12:48)
[2020-01-21] MEDS: SPIRONOLACTONE 25 MG TABLET PO SCH (13:02)
[2020-01-21] MEDS: HALOPERIDOL 5 MG TABLET. PO SCH (13:02)
[2020-01-21] MEDS: buPROPion 100 MG TABLET PO SCH ×2 (13:02→20:22)
[2020-01-21] MEDS: POTASSIUM CHLORIDE 10MEQ 100 ML IV SCH ×2 (13:03→15:20)
[2020-01-21] MEDS: PIPERACILLIN/TAZOBACTAM 3.375 GM in IV NORMAL SALINE 50ML 50 ML IV SCH ×3 (14:00→23:30)
[2020-01-21 15:00] VITALS: BP 168/86
--- NOTE | 2020-01-21 15:55 | NUR ---
Wound/Ostomy Care Wound Type/Assessment: abscess to right periorbital eye, reddened and swollen with bloody drainage. purulent drainage noted in corner of eye. Treatment Recommendations/Plan: Packed with iodoform gauze and covered with telfa bandaid. Change daily. Education provided: Wound care POC and PU prevention Offloading surface/device: none Recommended Referrals/Tests: follow up in [facility] Discharge Recommendations for dressings: continue packing daily
[2020-01-21] MEDS: LACTULOSE 20 GM/30 ML SOLUTION. PO SCH ×3 (15:56→21:00)
[2020-01-21] MEDS: NORMAL SALINE IV SCH (16:53)
[2020-01-21] MEDS: DAPTOMYCIN IV SCH (16:53)
--- NOTE | 2020-01-21 17:53 | NUR ---
SW following. Spoke with RN and reviewed chart. Pt on room air and IV abx. Pt COVID negative. Wound care is following. SW following.
[2020-01-21] MEDS: CARVEDILOL 3.125 MG TABLET. PO SCH (18:00)
[2020-01-21] MEDS ORDERED: PIPERACILLIN/TAZOBACTAM 2.25 GM in IV NORMAL SALINE 50ML 50 ML IV SCH (18:00)
[2020-01-21 19:00] VITALS: BP 150/85
[2020-01-21] MEDS: LACTOBACILLUS RHAMNOSUS GG 1 CAPSULE. PO SCH (20:22)
[2020-01-21] MEDS: LINEZOLID 600 MG TABLET PO SCH (20:22)
--- NOTE | 2020-01-21 20:54 | PDOC ---
VITAL SIGNS Vital Signs/I&O: Vital Signs Date Time Temp Pulse Resp B/P (MAP) Pulse Ox O2 Delivery O2 Flow Rate FiO2 01/21/20 19:00 98.9 79 18 150/85 (106) 93 Room Air 98.9 I & O 01/20/20 01/20/20 01/21/20 15:00 23:00 07:00 Intake Total 50 ml 1100 ml 0 ml Output Total 1025 ml 400 ml Balance 50 ml 75 ml -400 ml ALLERGIES Allergies: Allergies Coded Allergies Type Severity Reaction Last Updated Verified shellfish derived Allergy Intermediate 08/26/16 Yes NSAIDS (Non-Steroidal Anti-Inflamma Allergy Mild "told not to take" for GI concerns 09/23/13 Yes MEDS Medications: Current Medications Medications (Trade) Dose Ordered Sig/Jarrett Route PRN Reason Start Time Stop Time Status Last Admin Dose Admin Nicotine (Nicoderm Cq 7mg) 1 patch DAILY TD 01/20/20 22:00 01/21/20 10:19 Multivitamins (Thera M Plus) 1 tab DAILY PO 01/20/20 22:30 01/21/20 10:16 Folic Acid (Folic Acid) 1 mg DAILY PO 01/20/20 22:30 01/21/20 10:15 Thiamine Mononitrate (Vitamin B-1) 100 mg DAILY PO 01/20/20 22:30 01/21/20 10:16 Lorazepam (Ativan) 2 mg Q6H PO 01/20/20 22:00 01/22/20 04:01 01/21/20 15:57 Magnesium Sulfate 100 ml @ 25 mls/hr 1X ONCE IV 01/21/20 12:45 01/21/20 16:44 DC 01/21/20 13:03 Potassium Chloride (Klor-Con) 40 meq 1X ONCE PO 01/21/20 12:45 01/21/20 12:46 DC 01/21/20 13:02 Potassium Chloride/Water 100 ml @ 100 mls/hr Q1H IV 01/21/20 12:45 01/21/20 14:44 DC 01/21/20 15:20 Bupropion HCl (Wellbutrin) 100 mg BID PO 01/21/20 13:00 01/21/20 20:22 Carvedilol (Coreg) 3.125 mg BIDWMEALS PO 01/21/20 17:00 01/21/20 18:00 Haloperidol (Haldol) 5 mg DAILY PO 01/21/20 13:00 01/21/20 13:02 Lactulose (Lactulose) 20 gm TID PO 01/21/20 14:00 01/21/20 20:21 Spironolactone (Aldactone) 50 mg DAILY PO 01/21/20 13:00 01/21/20 13:02 Daptomycin 660 mg/ Sodium Chloride 50 ml @ 100 mls/hr Q24H IV 01/21/20 14:00 01/21/20 16:53 Linezolid (Zyvox) 600 mg BID PO 01/21/20 21:00 01/21/20 20:22 Piperacillin Sod/ Tazobactam Sod 3.375 gm/Sodium Chloride 50 ml @ 100 mls/hr Q6HRS IV 01/21/20 14:00 01/21/20 18:01 Lactobacillus Rhamnosus (Culturelle) 1 cap BID PO 01/21/20 21:00 01/21/20 20:22 LAB Lab: Laboratory Tests Test 01/21/20 04:35 01/21/20 08:51 01/21/20 12:40 01/21/20 16:55 White Blood Count 6.8 x10^3/uL (4.0-11.0) Red Blood Count 3.06 x10^6/uL (4.30-5.70) L Hemoglobin 10.4 g/dL (13.0-17.5) L Hematocrit 30.6 % (39.0-53.0) L Mean Corpuscular Volume 100 fL (79-100) Mean Corpuscular Hemoglobin 34 pg (25-35) Mean Corpuscular Hemoglobin Concent 34 g/dL (31-37) Red Cell Distribution Width 14.9 % (11.5-14.5) H Platelet Count 61 x10^3/uL (140-400) L Neutrophils (%) (Auto) 62 % (31-73) Lymphocytes (%) (Auto) 18 % (24-48) L Monocytes (%) (Auto) 17 % (0-9) H Eosinophils (%) (Auto) 2 % (0-3) Basophils (%) (Auto) 1 % (0-3) Neutrophils # (Auto) 4.2 x10^3/uL (1.8-7.7) Lymphocytes # (Auto) 1.2 x10^3/uL (1.0-4.8) Monocytes # (Auto) 1.2 x10^3/uL (0.0-1.1) H Eosinophils # (Auto) 0.2 x10^3/uL (0.0-0.7) Basophils # (Auto) 0.1 x10^3/uL (0.0-0.2) Sodium Level 136 mmol/L (136-145) Potassium Level 3.3 mmol/L (3.5-5.1) L Chloride Level 101 mmol/L (98-107) Carbon Dioxide Level 28 mmol/L (21-32) Anion Gap 7 (6-14) Blood Urea Nitrogen 12 mg/dL (8-26) Creatinine 1.2 mg/dL (0.7-1.3) Estimated GFR (Cockcroft-Gault) 80.7 Glucose Level 97 mg/dL (70-99) Calcium Level 8.7 mg/dL (8.5-10.1) Phosphorus Level 2.7 mg/dL (2.6-4.7) Magnesium Level 1.3 mg/dL (1.8-2.4) L Glucose (Fingerstick) 112 mg/dL (70-99) H 118 mg/dL (70-99) H 111 mg/dL (70-99) H Laboratory Tests 01/21/20 04:35 Laboratory Tests 01/21/20 04:35 ASSESSMENT & PLAN A&P Pt seen and examined ID consult dictated Justifications for Admission Other Justification RAINA PEARL MD Jan 21, 2020 20:54
--- NOTE | 2020-01-21 22:36 | CONS ---
DATE OF CONSULTATION: 01/21/2020 REFERRING PHYSICIAN: Damion Sandy MD REASON FOR CONSULTATION: Periorbital cellulitis. HISTORY OF PRESENT ILLNESS: A 39-year-old male with history of CHF, schizophrenia, depression, GERD, morbid obesity, hyperlipidemia, hypertension, presented with complaints of lower extremity swelling and pain over the last several days. He also had swelling, which is noted around the right periorbital region, which started as a small pimple. He has a history of cyst, but then it started getting worse with his eyes shut. He is unable to see out of the right eye due to the swelling. Denies any history of injury, denies fevers. Denies any history of previous skin and soft tissue infection. Denies being on any recent antibiotics. Denies any recent procedure. He follows up for his CHF at [facility]. No recent surgeries or any procedures. His white count was normal. Platelets were 70, which have been low in the past. Creatinine was 1.7. The patient has history of CKD. The patient underwent a head CT, which showed subcutaneous soft tissue swelling identified in the right side of the face including the soft tissue anterior to the right orbit. There is rim enhancing fluid collection seen within the soft tissue lateral to the right orbit, inferior abscess rather than cyst given the adjacent swelling of the soft tissue, this does not extend to the globe. Chest x-ray showed interstitial and ground-glass opacities, which could be from mild edema or interstitial edema. The patient underwent local I and D in ER. Cultures are not available. There was 6 mL of purulent material expressed. The patient underwent dressing, was given clindamycin and was started on doxycycline. BNP was high at 292. ID consult has been requested for antibiotic management. Today, the patient states his swelling is slightly better. He denies any fevers, chills, headache, sore throat, difficulty swallowing, dental pain, nausea, vomiting, diarrhea, abdominal pain. Does have shortness of breath and leg swelling, which is slightly better, but not back to baseline yet. Denies any skin rash. PAST MEDICAL HISTORY: Morbid obesity, cirrhosis, CHF, depression, GERD, hyperlipidemia, hypertension, schizophrenia. PAST SURGICAL HISTORY: None. ALLERGIES: SHELLFISH. NONSTEROIDALS. SOCIAL HISTORY: Smoking present. Denies any ETOH, history of heavy ETOH in the past, marijuana use though patient denied any. The patient is currently living with his mother. CURRENT MEDICATION: Doxycycline. Also received one dose of clindamycin in the ER. Other medications reviewed in medication list. REVIEW OF SYSTEMS: Negative except for above in HPI. PHYSICAL EXAMINATION: VITAL SIGNS: Temperature 99, pulse 89, respiratory rate 18, blood pressure 151/87 and oxygen saturation 98% on room air. GENERAL: Morbidly obese, alert, oriented x 3 male lying in bed comfortably, in no acute distress. HEENT: Right eye swelling, complete shut, unable to open to swelling, I could not open due to severe upper and lower eyelid edema. Dressing is present over the lateral aspect with packing in place surrounding redness and swelling noted over the right anabaptism area going down to the upper cheek. NECK: Supple. JVD present. LUNGS: Decreased breath sounds, otherwise no bilateral rhonchi, few rales. HEART: S1, S2, no murmurs. ABDOMEN: Obese, soft, bowel sounds present, nontender, nondistended. EXTREMITIES: 1+ pedal edema bilaterally. DERMATOLOGIC: Warm, dry. No generalized rash except for above. NEUROLOGIC: Alert and oriented x 3, grossly nonfocal. PSYCHIATRIC: Calm and cooperative. LABORATORY DATA: WBC 6.8, hemoglobin 10.4, hematocrit 30.6, and platelets 61. Sodium 136, potassium 3.3, chloride 101, bicarbonate 28, BUN 12, creatinine 1.2, glucose 118, calcium 8.7, phosphorus 2.7, magnesium 1.3. IMAGING: Chest x-ray as above. Head CT as above. IMPRESSION: 1. Right periorbital cellulitis with abscess, status post drainage in ED. no cultures available 2. Bilateral lower extremity swelling concerning for congestive heart failure exacerbation. 3. History of ETOH cirrhosis. 4. Morbid obesity. 5. Acute kidney injury with underlying chronic kidney disease, improved. 6. Abnormal liver function tests. RECOMMENDATIONS: 1. Discontinue doxycycline. Start empiric daptomycin, Zosyn and Zyvox, latter for a couple of days. 2. Follow up labs and cultures. 3. The patient may need Ophthalmology evaluation, not available at this center per staff , may need to be transferred to another facility with ophthalmology services 4. Continue local wound and eye care 5. Continue supportive care. Discussed with nursing staff Thank you for allowing me to participate in this patient's care. If you have any questions, do not hesitate to contact me. RAINA PEARL MD DR: Lily JOB#: [id number] / [id number] GILLES
--- NOTE | 2020-01-21 22:39 | RAD ---
STUDY: US Abdomen Complete INDICATION: Cirrhosis. COMPARISON: CT abdomen/pelvis 10/08/2016; abdominal ultrasound 08/25/2016 TECHNIQUE: Real-time grayscale and color Doppler sonographic evaluation of the abdomen. Findings: Very limited study due to body habitus and bowel gas. The pancreas is not well evaluated nor is much of the aorta, IVC and the portal vein. The left kidney is visualized but there is limited ability to detect any pathology. The liver measures prominent in size just over 20 cm longitudinal. Cirrhotic morphology. Portal venous patency is not well assessed. The gallbladder is mostly contracted. Mildly thick-walled at 4 mm. Normal common bile duct caliber. The right kidney measures 12.3 cm in length with relatively normal cortical thickness and echogenicity. No hydronephrosis. The left kidney is measured at around 11.2 cm. Mild splenic enlargement at 13.7 cm longitudinal. Impression: 1. Significantly degraded study due to a combination of bowel gas and patient body habitus. As above, several abdominal structures are not well assessed. 2. Prominent size of liver which exhibits cirrhotic morphology. Incomplete assessment for portal vein patency and flow direction. Mild splenic enlargement. 3. The gallbladder is mildly thick-walled but contracted. Cholecystitis is favored unlikely given its contracted state. 4. Unremarkable right kidney. Electronically signed by: LEDY JUNG MD (01/21/2020 10:36 PM) [id number]
[2020-01-21 23:00] VITALS: BP 151/78
[2020-01-22 03:00] VITALS: BP 167/91
[2020-01-22 04:27] LABS: BASO # 0.1 x10^3/uL (0.0-0.2); BASO % 1 % (0-3); EOS # 0.1 x10^3/uL (0.0-0.7); EOS % 2 % (0-3); HEMOGLOBIN 10.1 g/dL (13.0-17.5); LYMPH # 1.1 x10^3/uL (1.0-4.8); LYMPH % 17 % (24-48); MEAN CORPUSCULAR HEMOGLOBIN 34 pg (25-35); MEAN CORPUSCULAR HGB CONC 34 g/dL (31-37); MEAN CORPUSCULAR VOLUME 102 fL (79-100); MONO # 1.1 x10^3/uL (0.0-1.1); MONO % 17 % (0-9); NEUT # 4.2 x10^3/uL (1.8-7.7); NEUT % 63 % (31-73); PLATELET COUNT 58 x10^3/uL (140-400); RED BLOOD COUNT 2.96 x10^6/uL (4.30-5.70); RED CELL DISTRIBUTION WIDTH 14.6 % (11.5-14.5); WHITE BLOOD COUNT 6.6 x10^3/uL (4.0-11.0)
[2020-01-22 04:47] LABS: CALCIUM 8.4 mg/dL (8.5-10.1); CREATININE 1.3 mg/dL (0.7-1.3); GFR 73.6; MAGNESIUM 1.9 mg/dL (1.8-2.4); POTASSIUM 3.5 mmol/L (3.5-5.1)
[2020-01-22] MEDS: PIPERACILLIN/TAZOBACTAM 3.375 GM in IV NORMAL SALINE 50ML 50 ML IV SCH ×3 (05:19→18:00)
[2020-01-22 07:10] VITALS: BP 145/75
[2020-01-22] MEDS ORDERED: PANTOPRAZOLE 40 MG TABLET.DR. PO SCH (07:30)
--- NOTE | 2020-01-22 07:53 | PDOC ---
[employer] PROGRESS NOTE Date of Service DOS: DATE: 01/22/20 TIME: 07:48 Chief Complaint Chief Complaint A/P: Right supraorbital abscess - s/p I&D on 01/19 Preseptal/Periorbital cellulitis - on oral doxycycline Chronic diastolic CHF CKD HTN Schizophrenia Morbid obesity Tobacco abuse ETOH abuse Cirrhosis Severe protein calorie malnutrition Hypokalemia Hypomagnesemia History of Present Illness History of Present Illness Mr Mancini is a 39-year-old male with past medical history of CHF with unknown EF, schizophrenia, GERD, dyslipidemia, hypertension who comes with complaints of lower extremity pain and swelling over the past several days and also swelling in the right periorbital area which was incised and drained in the emergency department on 01/20/2020 Patient is unsure of any recent medication changes or echo or catheterization done recently. Patient does endorse orthopnea and dyspnea upon exertion. Patient mainly receives all his medical care at [facility]. Denies vision changes, chest pain, abdominal pain, diarrhea, dysuria, or bloody stools. 01/20: COVID 19 negative. Mg 1.3, K 3.3 today. Afebrile. His right eye feels less swollen to him today, some oozing laterally. ID has covered with 2 antibiotics, daptomycin and zosyn. Will monitor to see if addition of steroids is necessary. Overnight afebrile. Abdominal US with cirrhotic morphology of liver and splenomegaly. Having 6 BM per day. More drainage from eye. He is able to open it with assistance, still able to see, some conjunctival injection laterally. D/w ID to consult ophthalmology. Vitals/I&O Vitals/I&O: Vital Signs Date Time Temp Pulse Resp B/P (MAP) Pulse Ox O2 Delivery O2 Flow Rate FiO2 01/22/20 03:00 98.6 89 18 167/91 (116) 93 Room Air 98.6 I & O 01/21/20 01/21/20 01/22/20 15:00 23:00 07:00 Intake Total 100 ml 920 ml Output Total 160 ml 25 ml 1 ml Balance -60 ml 895 ml -1 ml Physical Exam General: Alert Lungs: Clear Labs Labs: Laboratory Tests Test 01/21/20 08:51 01/21/20 12:40 01/21/20 16:55 01/21/20 21:14 Glucose (Fingerstick) 112 mg/dL (70-99) 118 mg/dL (70-99) 111 mg/dL (70-99) 98 mg/dL (70-99) Test 01/22/20 03:30 White Blood Count 6.6 x10^3/uL (4.0-11.0) Red Blood Count 2.96 x10^6/uL (4.30-5.70) Hemoglobin 10.1 g/dL (13.0-17.5) Hematocrit 30.0 % (39.0-53.0) Mean Corpuscular Volume 102 fL (79-100) Mean Corpuscular Hemoglobin 34 pg (25-35) Mean Corpuscular Hemoglobin Concent 34 g/dL (31-37) Red Cell Distribution Width 14.6 % (11.5-14.5) Platelet Count 58 x10^3/uL (140-400) Neutrophils (%) (Auto) 63 % (31-73) Lymphocytes (%) (Auto) 17 % (24-48) Monocytes (%) (Auto) 17 % (0-9) Eosinophils (%) (Auto) 2 % (0-3) Basophils (%) (Auto) 1 % (0-3) Neutrophils # (Auto) 4.2 x10^3/uL (1.8-7.7) Lymphocytes # (Auto) 1.1 x10^3/uL (1.0-4.8) Monocytes # (Auto) 1.1 x10^3/uL (0.0-1.1) Eosinophils # (Auto) 0.1 x10^3/uL (0.0-0.7) Basophils # (Auto) 0.1 x10^3/uL (0.0-0.2) Sodium Level 137 mmol/L (136-145) Potassium Level 3.5 mmol/L (3.5-5.1) Chloride Level 102 mmol/L (98-107) Carbon Dioxide Level 27 mmol/L (21-32) Anion Gap 8 (6-14) Blood Urea Nitrogen 11 mg/dL (8-26) Creatinine 1.3 mg/dL (0.7-1.3) Estimated GFR (Cockcroft-Gault) 73.6 Glucose Level 95 mg/dL (70-99) Calcium Level 8.4 mg/dL (8.5-10.1) Magnesium Level 1.9 mg/dL (1.8-2.4) Assessment and Plan Assessmemt and Plan Problems Medical Problems: (1) Abscess of right periorbital region Status: Acute (2) CKD (chronic kidney disease) Status: Acute (3) Dyspnea Status: Acute (4) Lower extremity edema Status: Acute (5) Macrocytic anemia Status: Acute (6) Preseptal cellulitis of right eye Status: Acute Comment Review of Relevant I have reviewed the following items maci (where applicable) has been applied. Medications: Current Medications Medications (Trade) Dose Ordered Sig/Jarrett Route PRN Reason Start Time Stop Time Status Last Admin Dose Admin Magnesium Sulfate 100 ml @ 25 mls/hr 1X ONCE IV 01/21/20 12:45 01/21/20 16:44 DC 01/21/20 13:03 Potassium Chloride (Klor-Con) 40 meq 1X ONCE PO 01/21/20 12:45 01/21/20 12:46 DC 01/21/20 13:02 Potassium Chloride/Water 100 ml @ 100 mls/hr Q1H IV 01/21/20 12:45 01/21/20 14:44 DC 01/21/20 15:20 Bupropion HCl (Wellbutrin) 100 mg BID PO 01/21/20 13:00 01/21/20 20:22 Carvedilol (Coreg) 3.125 mg BIDWMEALS PO 01/21/20 17:00 01/21/20 18:00 Haloperidol (Haldol) 5 mg DAILY PO 01/21/20 13:00 01/21/20 13:02 Lactulose (Lactulose) 20 gm TID PO 01/21/20 14:00 01/21/20 15:56 Spironolactone (Aldactone) 50 mg DAILY PO 01/21/20 13:00 01/21/20 13:02 Daptomycin 660 mg/ Sodium Chloride 50 ml @ 100 mls/hr Q24H IV 01/21/20 14:00 01/21/20 16:53 Linezolid (Zyvox) 600 mg BID PO 01/21/20 21:00 01/21/20 20:22 Piperacillin Sod/ Tazobactam Sod 3.375 gm/Sodium Chloride 50 ml @ 100 mls/hr Q6HRS IV 01/21/20 14:00 01/22/20 05:19 Lactobacillus Rhamnosus (Culturelle) 1 cap BID PO 01/21/20 21:00 01/21/20 20:22 Images: Very limited study due to body habitus and bowel gas. The pancreas is not well evaluated nor is much of the aorta, IVC and the portal vein. The left kidney is visualized but there is limited ability to detect any pathology. The liver measures prominent in size just over 20 cm longitudinal. Cirrhotic morphology. Portal venous patency is not well assessed. The gallbladder is mostly contracted. Mildly thick-walled at 4 mm. Normal common bile duct caliber. The right kidney measures 12.3 cm in length with relatively normal cortical thickness and echogenicity. No hydronephrosis. The left kidney is measured at around 11.2 cm. Mild splenic enlargement at 13.7 cm longitudinal. Impression: 1. Significantly degraded study due to a combination of bowel gas and patient body habitus. As above, several abdominal structures are not well assessed. 2. Prominent size of liver which exhibits cirrhotic morphology. Incomplete assessment for portal vein patency and flow direction. Mild splenic enlargement. 3. The gallbladder is mildly thick-walled but contracted. Cholecystitis is fav ored unlikely given its contracted state. 4. Unremarkable right kidney. Justifications for Admission Other Justification KATHLEEN ALEXIS MD Jan 22, 2020 07:53
[2020-01-22] MEDS: INSULIN LISPRO 300 UNITS/3 ML VIAL. SQ SCH ×3 (08:00→17:00)
[2020-01-22] MEDS: FOLIC ACID 1 MG TABLET. PO SCH (08:48)
[2020-01-22] MEDS: LACTULOSE 20 GM/30 ML SOLUTION. PO SCH ×3 (08:48→22:01)
[2020-01-22] MEDS: LACTOBACILLUS RHAMNOSUS GG 1 CAPSULE. PO SCH ×2 (08:48→22:00)
[2020-01-22] MEDS: MULTIVITAMIN with MINERAL TABLET. PO SCH (08:48)
[2020-01-22] MEDS: THIAMINE 100 MG TABLET. PO SCH (08:49)
[2020-01-22] MEDS: HALOPERIDOL 5 MG TABLET. PO SCH (08:49)
[2020-01-22] MEDS: buPROPion 100 MG TABLET PO SCH ×2 (08:49→22:00)
[2020-01-22] MEDS: LINEZOLID 600 MG TABLET PO SCH ×2 (08:49→22:00)
[2020-01-22] MEDS: PANTOPRAZOLE 40 MG TABLET.DR. PO SCH (08:49)
[2020-01-22] MEDS: CETIRIZINE HCL 10 MG TABLET. PO SCH (08:49)
[2020-01-22] MEDS: CARVEDILOL 3.125 MG TABLET. PO SCH ×2 (08:49→18:19)
[2020-01-22] MEDS: SPIRONOLACTONE 25 MG TABLET PO SCH (08:50)
[2020-01-22] MEDS: NICOTINE 7MG PATCH. TD SCH (08:50)
[2020-01-22] MEDS ORDERED: FUROSEMIDE 40 MG TABLET. PO SCH (09:00)
[2020-01-22] MEDS ORDERED: POTASSIUM CHLORIDE 20 MEQ TABLET.ER. PO ONE (09:00)
--- NOTE | 2020-01-22 10:47 | PDOC ---
Infectious Disease Note Vital Signs: Vital Signs Vital Signs Date Time Temp Pulse Resp B/P (MAP) Pulse Ox O2 Delivery O2 Flow Rate FiO2 01/22/20 08:49 99 145/75 01/22/20 08:00 Room Air 01/22/20 07:10 98.6 18 99 98.6 Medications: Inpatient Meds: Current Medications Medications (Trade) Dose Ordered Sig/Jarrett Start Time Stop Time Status Last Admin Dose Admin Bupropion HCl (Wellbutrin) 100 mg BID 01/21/20 13:00 01/22/20 08:49 100 MG Carvedilol (Coreg) 3.125 mg BIDWMEALS 01/21/20 17:00 01/22/20 08:49 3.125 MG Cetirizine HCl (ZyrTEC) 10 mg DAILY 01/22/20 09:00 01/22/20 08:49 10 MG Clindamycin Phosphate 50 ml @ 100 mls/hr 1X ONCE 01/20/20 07:30 01/20/20 07:59 DC 01/20/20 07:52 100 MLS/HR Daptomycin 660 mg/ Sodium Chloride 50 ml @ 100 mls/hr Q24H 01/21/20 14:00 01/21/20 16:53 100 MLS/HR Dextrose (Dextrose 50%-Water Syringe) 12.5 gm PRN Q15MIN PRN 01/20/20 16:15 Diphtheria/ Tetanus/Acell Pertussis (ADACEL TDap SYRINGE) 0.5 ml ONCE ONCE 01/20/20 08:30 01/20/20 08:31 DC 01/20/20 09:18 0.5 ML Docusate Sodium (Colace) 100 mg PRN DAILY PRN 01/20/20 16:15 Doxycycline Hyclate (Vibra-Tab) 100 mg BID 01/20/20 17:00 01/21/20 13:06 DC 01/21/20 10:16 100 MG Enoxaparin Sodium (Lovenox 60mg Syringe) 60 mg Q12HR 01/20/20 17:00 01/22/20 08:48 60 MG Fentanyl Citrate (Fentanyl 2ml Vial) 50 mcg 1X ONCE 01/20/20 07:45 01/20/20 07:46 DC 01/20/20 07:52 50 MCG Folic Acid (Folic Acid) 1 mg DAILY 01/20/20 22:30 01/22/20 08:48 1 MG Furosemide (Lasix) 40 mg DAILY 01/22/20 09:00 01/22/20 08:48 40 MG Haloperidol (Haldol) 5 mg DAILY 01/21/20 13:00 01/22/20 08:49 5 MG Info (CONTRAST GIVEN -- Rx MONITORING) 1 each PRN DAILY PRN 01/20/20 06:00 01/22/20 05:59 DC Insulin Human Lispro (HumaLOG) 0-5 UNITS TIDWMEALS 01/20/20 17:00 Iohexol (Omnipaque 300 Mg/ml) 60 ml 1X ONCE 01/20/20 06:00 01/20/20 06:01 DC 01/20/20 06:00 60 ML Lactobacillus Rhamnosus (Culturelle) 1 cap BID 01/21/20 21:00 01/22/20 08:48 1 CAP Lactulose (Lactulose) 20 gm TID 01/21/20 14:00 01/22/20 08:48 20 GM Lidocaine HCl (Lidocaine 1% 20ml Vial) 5 ml 1X ONCE 01/20/20 07:30 01/20/20 07:31 DC 01/20/20 07:53 5 ML Linezolid (Zyvox) 600 mg BID 01/21/20 21:00 01/22/20 08:49 600 MG Lorazepam (Ativan) 2 mg Q6H 01/20/20 22:00 01/22/20 04:01 DC 01/22/20 04:24 2 MG Magnesium Oxide (Magnesium Oxide) 800 mg 1X ONCE 01/20/20 16:45 01/20/20 16:59 DC 01/20/20 17:07 800 MG Magnesium Sulfate 100 ml @ 25 mls/hr 1X ONCE 01/21/20 12:45 01/21/20 16:44 DC 01/21/20 13:03 25 MLS/HR Morphine Sulfate (Morphine Sulfate) 2 mg PRN Q2HR PRN 01/20/20 16:15 01/20/20 19:58 2 MG Multivitamins (Thera M Plus) 1 tab DAILY 01/20/20 22:30 01/22/20 08:48 1 TAB Nicotine (Nicoderm Cq 7mg) 1 patch DAILY 01/20/20 22:00 01/22/20 08:50 1 PATCH Nicotine Polacrilex (Nicorette Gum) 1 each PRN Q1HR PRN 01/20/20 21:15 Ondansetron HCl (Zofran) 4 mg PRN Q6HRS PRN 01/20/20 16:15 Pantoprazole Sodium (Protonix) 40 mg DAILYAC 01/22/20 07:30 Piperacillin Sod/ Tazobactam Sod 2.25 gm/Sodium Chloride 50 ml @ 100 mls/hr Q6HRS 01/21/20 18:00 Cancel Piperacillin Sod/ Tazobactam Sod 3.375 gm/Sodium Chloride 50 ml @ 100 mls/hr Q6HRS 01/21/20 14:00 01/22/20 05:19 100 MLS/HR Potassium Chloride/Water 100 ml @ 100 mls/hr Q1H 01/21/20 12:45 01/21/20 14:44 DC 01/21/20 15:20 100 MLS/HR Potassium Chloride (Klor-Con) 40 meq 1X ONCE 01/22/20 09:00 01/22/20 09:01 DC 01/22/20 09:01 40 MEQ Sennosides (Senna) 17.2 mg PRN BID PRN 01/20/20 16:15 Spironolactone (Aldactone) 50 mg DAILY 01/21/20 13:00 01/22/20 08:50 50 MG Thiamine Mononitrate (Vitamin B-1) 100 mg DAILY 01/20/20 22:30 01/22/20 08:49 100 MG Labs: Lab Laboratory Tests Test 01/21/20 12:40 01/21/20 16:55 01/21/20 21:14 01/22/20 03:30 Glucose (Fingerstick) 118 mg/dL (70-99) 111 mg/dL (70-99) 98 mg/dL (70-99) White Blood Count 6.6 x10^3/uL (4.0-11.0) Red Blood Count 2.96 x10^6/uL (4.30-5.70) Hemoglobin 10.1 g/dL (13.0-17.5) Hematocrit 30.0 % (39.0-53.0) Mean Corpuscular Volume 102 fL (79-100) Mean Corpuscular Hemoglobin 34 pg (25-35) Mean Corpuscular Hemoglobin Concent 34 g/dL (31-37) Red Cell Distribution Width 14.6 % (11.5-14.5) Platelet Count 58 x10^3/uL (140-400) Neutrophils (%) (Auto) 63 % (31-73) Lymphocytes (%) (Auto) 17 % (24-48) Monocytes (%) (Auto) 17 % (0-9) Eosinophils (%) (Auto) 2 % (0-3) Basophils (%) (Auto) 1 % (0-3) Neutrophils # (Auto) 4.2 x10^3/uL (1.8-7.7) Lymphocytes # (Auto) 1.1 x10^3/uL (1.0-4.8) Monocytes # (Auto) 1.1 x10^3/uL (0.0-1.1) Eosinophils # (Auto) 0.1 x10^3/uL (0.0-0.7) Basophils # (Auto) 0.1 x10^3/uL (0.0-0.2) Sodium Level 137 mmol/L (136-145) Potassium Level 3.5 mmol/L (3.5-5.1) Chloride Level 102 mmol/L (98-107) Carbon Dioxide Level 27 mmol/L (21-32) Anion Gap 8 (6-14) Blood Urea Nitrogen 11 mg/dL (8-26) Creatinine 1.3 mg/dL (0.7-1.3) Estimated GFR (Cockcroft-Gault) 73.6 Glucose Level 95 mg/dL (70-99) Calcium Level 8.4 mg/dL (8.5-10.1) Magnesium Level 1.9 mg/dL (1.8-2.4) Test 01/22/20 08:06 Glucose (Fingerstick) 115 mg/dL (70-99) Plan: Plan of Care Duplicate note RAINA PEARL MD Jan 22, 2020 10:47
--- NOTE | 2020-01-22 10:51 | PDOC ---
Infectious Disease Note Subjective: Subjective Patient says he feels a little better Now has started having drainage from the swelling on the right zoroastrianism area Swelling of the eyelid and face has improved a little, still cannot open his right eye due to swelling Denies headache, sore throat, cough, fever, nausea, vomiting, shortness of br eath, diarrhea, abdominal pain, rash Otherwise as above Vital Signs: Vital Signs Vital Signs Date Time Temp Pulse Resp B/P (MAP) Pulse Ox O2 Delivery O2 Flow Rate FiO2 01/22/20 08:49 99 145/75 01/22/20 08:00 Room Air 01/22/20 07:10 98.6 18 99 98.6 Physical Exam: PHYSICAL EXAM GENERAL: Morbidly obese, alert, oriented x 3 male lying in bed comfortably, in no acute distress. HEENT: Right eye swelling, complete shut, unable to open to swelling, I could not open due to severe upper and lower eyelid edema. Dressing is present over the lateral aspect with packing in place surrounding redness and swelling noted over the right zoroastrianism area going down to the upper cheek. NECK: Supple. JVD present. LUNGS: Decreased breath sounds, otherwise no bilateral rhonchi, few rales. HEART: S1, S2, no murmurs. ABDOMEN: Obese, soft, bowel sounds present, nontender, nondistended. EXTREMITIES: 1+ pedal edema bilaterally. DERMATOLOGIC: Warm, dry. No generalized rash except for above. NEUROLOGIC: Alert and oriented x 3, grossly nonfocal. PSYCHIATRIC: Calm and cooperative. Medications: Inpatient Meds: Current Medications Medications (Trade) Dose Ordered Sig/Jarrett Start Time Stop Time Status Last Admin Dose Admin Bupropion HCl (Wellbutrin) 100 mg BID 01/21/20 13:00 01/22/20 08:49 100 MG Carvedilol (Coreg) 3.125 mg BIDWMEALS 01/21/20 17:00 01/22/20 08:49 3.125 MG Cetirizine HCl (ZyrTEC) 10 mg DAILY 01/22/20 09:00 01/22/20 08:49 10 MG Clindamycin Phosphate 50 ml @ 100 mls/hr 1X ONCE 01/20/20 07:30 01/20/20 07:59 DC 01/20/20 07:52 100 MLS/HR Daptomycin 660 mg/ Sodium Chloride 50 ml @ 100 mls/hr Q24H 01/21/20 14:00 01/21/20 16:53 100 MLS/HR Dextrose (Dextrose 50%-Water Syringe) 12.5 gm PRN Q15MIN PRN 01/20/20 16:15 Diphtheria/ Tetanus/Acell Pertussis (ADACEL TDap SYRINGE) 0.5 ml ONCE ONCE 01/20/20 08:30 01/20/20 08:31 DC 01/20/20 09:18 0.5 ML Docusate Sodium (Colace) 100 mg PRN DAILY PRN 01/20/20 16:15 Doxycycline Hyclate (Vibra-Tab) 100 mg BID 01/20/20 17:00 01/21/20 13:06 DC 01/21/20 10:16 100 MG Enoxaparin Sodium (Lovenox 60mg Syringe) 60 mg Q12HR 01/20/20 17:00 01/22/20 08:48 60 MG Fentanyl Citrate (Fentanyl 2ml Vial) 50 mcg 1X ONCE 01/20/20 07:45 01/20/20 07:46 DC 01/20/20 07:52 50 MCG Folic Acid (Folic Acid) 1 mg DAILY 01/20/20 22:30 01/22/20 08:48 1 MG Furosemide (Lasix) 40 mg DAILY 01/22/20 09:00 01/22/20 08:48 40 MG Haloperidol (Haldol) 5 mg DAILY 01/21/20 13:00 01/22/20 08:49 5 MG Info (CONTRAST GIVEN -- Rx MONITORING) 1 each PRN DAILY PRN 01/20/20 06:00 01/22/20 05:59 DC Insulin Human Lispro (HumaLOG) 0-5 UNITS TIDWMEALS 01/20/20 17:00 Iohexol (Omnipaque 300 Mg/ml) 60 ml 1X ONCE 01/20/20 06:00 01/20/20 06:01 DC 01/20/20 06:00 60 ML Lactobacillus Rhamnosus (Culturelle) 1 cap BID 01/21/20 21:00 01/22/20 08:48 1 CAP Lactulose (Lactulose) 20 gm TID 01/21/20 14:00 01/22/20 08:48 20 GM Lidocaine HCl (Lidocaine 1% 20ml Vial) 5 ml 1X ONCE 01/20/20 07:30 01/20/20 07:31 DC 01/20/20 07:53 5 ML Linezolid (Zyvox) 600 mg BID 01/21/20 21:00 01/22/20 08:49 600 MG Lorazepam (Ativan) 2 mg Q6H 01/20/20 22:00 01/22/20 04:01 DC 01/22/20 04:24 2 MG Magnesium Oxide (Magnesium Oxide) 800 mg 1X ONCE 01/20/20 16:45 01/20/20 16:59 DC 01/20/20 17:07 800 MG Magnesium Sulfate 100 ml @ 25 mls/hr 1X ONCE 01/21/20 12:45 01/21/20 16:44 DC 01/21/20 13:03 25 MLS/HR Morphine Sulfate (Morphine Sulfate) 2 mg PRN Q2HR PRN 01/20/20 16:15 01/20/20 19:58 2 MG Multivitamins (Thera M Plus) 1 tab DAILY 01/20/20 22:30 01/22/20 08:48 1 TAB Nicotine (Nicoderm Cq 7mg) 1 patch DAILY 01/20/20 22:00 01/22/20 08:50 1 PATCH Nicotine Polacrilex (Nicorette Gum) 1 each PRN Q1HR PRN 01/20/20 21:15 Ondansetron HCl (Zofran) 4 mg PRN Q6HRS PRN 01/20/20 16:15 Pantoprazole Sodium (Protonix) 40 mg DAILYAC 01/22/20 07:30 Piperacillin Sod/ Tazobactam Sod 2.25 gm/Sodium Chloride 50 ml @ 100 mls/hr Q6HRS 01/21/20 18:00 Cancel Piperacillin Sod/ Tazobactam Sod 3.375 gm/Sodium Chloride 50 ml @ 100 mls/hr Q6HRS 01/21/20 14:00 01/22/20 05:19 100 MLS/HR Potassium Chloride/Water 100 ml @ 100 mls/hr Q1H 01/21/20 12:45 01/21/20 14:44 DC 01/21/20 15:20 100 MLS/HR Potassium Chloride (Klor-Con) 40 meq 1X ONCE 01/22/20 09:00 01/22/20 09:01 DC 01/22/20 09:01 40 MEQ Sennosides (Senna) 17.2 mg PRN BID PRN 01/20/20 16:15 Spironolactone (Aldactone) 50 mg DAILY 01/21/20 13:00 01/22/20 08:50 50 MG Thiamine Mononitrate (Vitamin B-1) 100 mg DAILY 01/20/20 22:30 01/22/20 08:49 100 MG Labs: Lab Laboratory Tests Test 01/21/20 12:40 01/21/20 16:55 01/21/20 21:14 01/22/20 03:30 Glucose (Fingerstick) 118 mg/dL (70-99) 111 mg/dL (70-99) 98 mg/dL (70-99) White Blood Count 6.6 x10^3/uL (4.0-11.0) Red Blood Count 2.96 x10^6/uL (4.30-5.70) Hemoglobin 10.1 g/dL (13.0-17.5) Hematocrit 30.0 % (39.0-53.0) Mean Corpuscular Volume 102 fL (79-100) Mean Corpuscular Hemoglobin 34 pg (25-35) Mean Corpuscular Hemoglobin Concent 34 g/dL (31-37) Red Cell Distribution Width 14.6 % (11.5-14.5) Platelet Count 58 x10^3/uL (140-400) Neutrophils (%) (Auto) 63 % (31-73) Lymphocytes (%) (Auto) 17 % (24-48) Monocytes (%) (Auto) 17 % (0-9) Eosinophils (%) (Auto) 2 % (0-3) Basophils (%) (Auto) 1 % (0-3) Neutrophils # (Auto) 4.2 x10^3/uL (1.8-7.7) Lymphocytes # (Auto) 1.1 x10^3/uL (1.0-4.8) Monocytes # (Auto) 1.1 x10^3/uL (0.0-1.1) Eosinophils # (Auto) 0.1 x10^3/uL (0.0-0.7) Basophils # (Auto) 0.1 x10^3/uL (0.0-0.2) Sodium Level 137 mmol/L (136-145) Potassium Level 3.5 mmol/L (3.5-5.1) Chloride Level 102 mmol/L (98-107) Carbon Dioxide Level 27 mmol/L (21-32) Anion Gap 8 (6-14) Blood Urea Nitrogen 11 mg/dL (8-26) Creatinine 1.3 mg/dL (0.7-1.3) Estimated GFR (Cockcroft-Gault) 73.6 Glucose Level 95 mg/dL (70-99) Calcium Level 8.4 mg/dL (8.5-10.1) Magnesium Level 1.9 mg/dL (1.8-2.4) Test 01/22/20 08:06 Glucose (Fingerstick) 115 mg/dL (70-99) Objective: Assessment: 1. Right periorbital cellulitis with lateral zoroastrianism abscess, status post drainage in ED. no cultures available 2. Bilateral lower extremity swelling concerning for congestive heart failure exacerbation. 3. History of cirrhosis. 4. Morbid obesity. 5. Acute kidney injury with underlying chronic kidney disease, improved. 6. Abnormal liver function tests. 7. Hematuria 8. Thrombocytopenia 9. History of schizophrenia Plan: Plan of Care cont daptomycin, Zosyn and Zyvox, latter for a couple of days. Follow up labs and cultures. Continue local care Consult ophthalmology, Team is trying to see if services are available here Continue supportive care. Discussed with nursing staff RAINA PEARL MD Jan 22, 2020 10:51
[2020-01-22 11:15] VITALS: BP 162/95
--- NOTE | 2020-01-22 12:05 | PDOC ---
PALOMA SMITH [employer] PATTERN GRADER 01/22/20 1205: CARDIO Progress Notes Date and Time Date of Service 01/22/20 Time of Evaluation 1155 Subjective Subjective: No Chest Pain, Other (breathing, swelling slightly ) Vitals Vitals Vital Signs Date Time Temp Pulse Resp B/P (MAP) Pulse Ox O2 Delivery O2 Flow Rate FiO2 01/22/20 08:49 99 145/75 01/22/20 08:00 Room Air 01/22/20 07:10 98.6 18 99 98.6 Weight Weight [ ] Input and Output Intake and Output Intake and Output 01/22/20 07:00 Intake Total 1020 ml Output Total 186 ml Balance 834 ml Intake Oral 620 ml IV Total 400 ml Output Urine Total 160 ml Stool Total 26 ml # Voids 5 # Bowel Movements 4 Laboratory Labs Laboratory Tests Test 01/21/20 12:40 01/21/20 16:55 01/21/20 21:14 01/22/20 03:30 Glucose (Fingerstick) 118 mg/dL (70-99) 111 mg/dL (70-99) 98 mg/dL (70-99) White Blood Count 6.6 x10^3/uL (4.0-11.0) Red Blood Count 2.96 x10^6/uL (4.30-5.70) Hemoglobin 10.1 g/dL (13.0-17.5) Hematocrit 30.0 % (39.0-53.0) Mean Corpuscular Volume 102 fL (79-100) Mean Corpuscular Hemoglobin 34 pg (25-35) Mean Corpuscular Hemoglobin Concent 34 g/dL (31-37) Red Cell Distribution Width 14.6 % (11.5-14.5) Platelet Count 58 x10^3/uL (140-400) Neutrophils (%) (Auto) 63 % (31-73) Lymphocytes (%) (Auto) 17 % (24-48) Monocytes (%) (Auto) 17 % (0-9) Eosinophils (%) (Auto) 2 % (0-3) Basophils (%) (Auto) 1 % (0-3) Neutrophils # (Auto) 4.2 x10^3/uL (1.8-7.7) Lymphocytes # (Auto) 1.1 x10^3/uL (1.0-4.8) Monocytes # (Auto) 1.1 x10^3/uL (0.0-1.1) Eosinophils # (Auto) 0.1 x10^3/uL (0.0-0.7) Basophils # (Auto) 0.1 x10^3/uL (0.0-0.2) Sodium Level 137 mmol/L (136-145) Potassium Level 3.5 mmol/L (3.5-5.1) Chloride Level 102 mmol/L (98-107) Carbon Dioxide Level 27 mmol/L (21-32) Anion Gap 8 (6-14) Blood Urea Nitrogen 11 mg/dL (8-26) Creatinine 1.3 mg/dL (0.7-1.3) Estimated GFR (Cockcroft-Gault) 73.6 Glucose Level 95 mg/dL (70-99) Calcium Level 8.4 mg/dL (8.5-10.1) Magnesium Level 1.9 mg/dL (1.8-2.4) Test 01/22/20 08:06 01/22/20 11:44 Glucose (Fingerstick) 115 mg/dL (70-99) 95 mg/dL (70-99) Physical Exam HEENT: Neck Supple W Full Motion, Other (right eye periorbital edema ) Chest: Symmetric LUNGS: Other (diminished ) Heart: RRR Abdomen: Soft N/T, Other (obese ) Extremities: Other (2+ bilateral LE edema ) Neurology: alert, oriented, follow commands Assessment Assessment 1. Acute on chronic diastolic HF; LVEF 60% 2. Cirrhosis, coagulopathy, thrombocytopenia 3. H/o chronic alcoholism; denies current use 4. Hypertension; elevated 5. CKD; Cr stable. 6. Anxiety/depression/schizophrenia 7. Morbid obesity 8. Tobaccoism; discussed/encouraged cessation 9. Right supraorbital abscess; s/p I&D 10. Hypokalemia/hypomagnesemia; replaced Recommendations HF optimization with BB, spironolactone. 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 Discussed with nursing staff. Supportive care from CV standpoint. Thanks PALOMA SMITH APRN Jan 22, 2020 12:05 HUAN KELLER MD Jan 22, 2020 15:26
--- NOTE | 2020-01-22 14:35 | NUR ---
1400 LACTULOSE HELD, PATIENT HAS HAD MULTIPLE BOWEL MOVEMENTS TODAY.
[2020-01-22 15:24] VITALS: BP 134/74
--- NOTE | 2020-01-22 17:11 | NUR ---
SW following. Spoke with RN and reviewed chart. Pt remains on IV abx. SW following.
[2020-01-22] MEDS: BUMETANIDE 1 MG TABLET. PO SCH (18:17)
[2020-01-22 19:50] VITALS: BP 141/76
[2020-01-22 23:30] VITALS: BP 141/80
[2020-01-23] MEDS: PIPERACILLIN/TAZOBACTAM 3.375 GM in IV NORMAL SALINE 50ML 50 ML IV SCH ×5 (00:50→23:52)
[2020-01-23] MEDS: NORMAL SALINE IV SCH ×2 (00:50→14:00)
[2020-01-23] MEDS: DAPTOMYCIN IV SCH ×2 (00:50→14:00)
[2020-01-23 03:50] VITALS: BP 144/83
[2020-01-23 07:00] VITALS: BP 177/106
[2020-01-23] MEDS: INSULIN LISPRO 300 UNITS/3 ML VIAL. SQ SCH ×3 (08:00→17:00)
[2020-01-23] MEDS: LACTULOSE 20 GM/30 ML SOLUTION. PO SCH ×3 (09:00→20:35)
[2020-01-23] MEDS: NICOTINE 7MG PATCH. TD SCH (10:09)
[2020-01-23] MEDS: FOLIC ACID 1 MG TABLET. PO SCH (10:09)
[2020-01-23] MEDS: buPROPion 100 MG TABLET PO SCH ×2 (10:09→20:39)
[2020-01-23] MEDS: BUMETANIDE 1 MG TABLET. PO SCH ×2 (10:09→17:12)
[2020-01-23] MEDS: THIAMINE 100 MG TABLET. PO SCH (10:10)
[2020-01-23] MEDS: CARVEDILOL 3.125 MG TABLET. PO SCH ×2 (10:10→17:12)
--- NOTE | 2020-01-23 10:10 | PDOC ---
[employer] PROGRESS NOTE Date of Service DOS: DATE: 01/23/20 TIME: 10:09 Chief Complaint Chief Complaint A/P: Right supraorbital abscess - s/p I&D on 01/19 Preseptal/Periorbital cellulitis - on oral doxycycline Chronic diastolic CHF CKD HTN Schizophrenia Morbid obesity Tobacco abuse ETOH abuse Cirrhosis Severe protein calorie malnutrition Hypokalemia Hypomagnesemia History of Present Illness History of Present Illness Mr Mancini is a 39-year-old male with past medical history of CHF with unknown EF, schizophrenia, GERD, dyslipidemia, hypertension who comes with complaints of lower extremity pain and swelling over the past several days and also swelling in the right periorbital area which was incised and drained in the emergency department on 01/20/2020 Patient is unsure of any recent medication changes or echo or catheterization done recently. Patient does endorse orthopnea and dyspnea upon exertion. Patient mainly receives all his medical care at [facility]. Denies vision changes, chest pain, abdominal pain, diarrhea, dysuria, or bloody stools. 01/20: COVID 19 negative. Mg 1.3, K 3.3 today. Afebrile. His right eye feels less swollen to him today, some oozing laterally. ID has covered with 2 antibiotics, daptomycin and zosyn. Will monitor to see if addition of steroids is necessary. 01/21: Overnight afebrile. Abdominal US with cirrhotic morphology of liver and splenomegaly. Having 6 BM per day. More drainage from eye. He is able to open it with assistance, still able to see, some conjunctival injection laterally. D/w ID to consult ophthalmology. To echo today. Eye less swollen. Mg 1.3, K 3.3. He had multiple BM overnight. Unable to be seen by ophtho Vitals/I&O Vitals/I&O: Vital Signs Date Time Temp Pulse Resp B/P (MAP) Pulse Ox O2 Delivery O2 Flow Rate FiO2 01/23/20 03:50 77 16 144/83 (103) 97 Room Air 01/22/20 23:30 97.4 97.4 I & O 01/22/20 01/22/20 01/23/20 15:00 23:00 07:00 Intake Total 300 ml 180 ml 60 ml Output Total 450 ml 150 ml 1200 ml Balance -150 ml 30 ml -1140 ml Physical Exam Physical Exam: GENERAL: Morbidly obese, alert, oriented x 3 male lying in bed comfortably, in no acute distress. HEENT: Right eye swelling, complete shut, unable to open to swelling, I could not open due to severe upper and lower eyelid edema. Dressing is present over the lateral aspect with packing in place surrounding redness and swelling noted over the right oriental orthodox area going down to the upper cheek. NECK: Supple. JVD present. LUNGS: Decreased breath sounds, otherwise no bilateral rhonchi, few rales. HEART: S1, S2, no murmurs. ABDOMEN: Obese, soft, bowel sounds present, nontender, nondistended. EXTREMITIES: 1+ pedal edema bilaterally. DERMATOLOGIC: Warm, dry. No generalized rash except for above. NEUROLOGIC: Alert and oriented x 3, grossly nonfocal. PSYCHIATRIC: Calm and cooperative. General: Alert Lungs: Clear Labs Labs: Laboratory Tests Test 01/22/20 11:44 01/22/20 14:56 01/22/20 21:01 Glucose (Fingerstick) 95 mg/dL (70-99) 91 mg/dL (70-99) 96 mg/dL (70-99) Assessment and Plan Assessmemt and Plan Problems Medical Problems: (1) Abscess of right periorbital region Status: Acute (2) CKD (chronic kidney disease) Status: Acute (3) Dyspnea Status: Acute (4) Lower extremity edema Status: Acute (5) Macrocytic anemia Status: Acute (6) Preseptal cellulitis of right eye Status: Acute Comment Review of Relevant I have reviewed the following items maci (where applicable) has been applied. Medications: Current Medications Medications (Trade) Dose Ordered Sig/Jarrett Route PRN Reason Start Time Stop Time Status Last Admin Dose Admin Bumetanide (Bumex) 2 mg [id number] PO 01/22/20 16:00 01/22/20 18:17 Carvedilol (Coreg) 6.25 mg BIDWMEALS PO 01/22/20 17:00 01/22/20 18:19 Justifications for Admission Other Justification KATHLEEN ALEXIS MD Jan 23, 2020 10:10
[2020-01-23] MEDS: MULTIVITAMIN with MINERAL TABLET. PO SCH (10:11)
[2020-01-23] MEDS: PANTOPRAZOLE 40 MG TABLET.DR. PO SCH (10:11)
[2020-01-23] MEDS: SPIRONOLACTONE 25 MG TABLET PO SCH (10:11)
[2020-01-23] MEDS: HALOPERIDOL 5 MG TABLET. PO SCH (10:11)
[2020-01-23] MEDS: CETIRIZINE HCL 10 MG TABLET. PO SCH (10:11)
[2020-01-23] MEDS: LINEZOLID 600 MG TABLET PO SCH (10:11)
[2020-01-23] MEDS: LACTOBACILLUS RHAMNOSUS GG 1 CAPSULE. PO SCH ×2 (10:12→20:39)
--- NOTE | 2020-01-23 10:26 | PDOC ---
Infectious Disease Note Subjective: Subjective Patient says he feels a little better Continues to have drainage from the swelling on the right jainism area near the eyelid Swelling of the eyelid and face has improved a little, still cannot open his right eye due to swelling Able to see from right eye Denies headache, sore throat, cough, fever, nausea, vomiting, shortness of breath, diarrhea, abdominal pain, rash Otherwise as above Vital Signs: Vital Signs Vital Signs Date Time Temp Pulse Resp B/P (MAP) Pulse Ox O2 Delivery O2 Flow Rate FiO2 01/23/20 10:10 81 177/106 01/23/20 03:50 16 97 Room Air 01/22/20 23:30 97.4 97.4 Physical Exam: PHYSICAL EXAM GENERAL: Morbidly obese, alert, oriented x 3 male lying in bed comfortably, in no acute distress. HEENT: Right eye swelling, complete shut, unable to open to swelling, I could not open due to severe upper and lower eyelid edema. Dressing is present over the lateral aspect with packing in place surrounding redness and swelling noted over the right jainism area going down to the upper cheek. NECK: Supple. JVD present. LUNGS: Decreased breath sounds, otherwise no bilateral rhonchi, few rales. HEART: S1, S2, no murmurs. ABDOMEN: Obese, soft, bowel sounds present, nontender, nondistended. EXTREMITIES: 1+ pedal edema bilaterally. DERMATOLOGIC: Warm, dry. No generalized rash except for above. NEUROLOGIC: Alert and oriented x 3, grossly nonfocal. PSYCHIATRIC: Calm and cooperative. Medications: Inpatient Meds: Current Medications Medications (Trade) Dose Ordered Sig/[facility] Start Time Stop Time Status Last Admin Dose Admin Bumetanide (Bumex) 2 mg [id number] 01/22/20 16:00 01/23/20 10:09 2 MG Bupropion HCl (Wellbutrin) 100 mg BID 01/21/20 13:00 01/23/20 10:09 100 MG Carvedilol (Coreg) 6.25 mg BIDWMEALS 01/22/20 17:00 01/23/20 10:10 6.25 MG Cetirizine HCl (ZyrTEC) 10 mg DAILY 01/22/20 09:00 01/23/20 10:11 10 MG Clindamycin Phosphate 50 ml @ 100 mls/hr 1X ONCE 01/20/20 07:30 01/20/20 07:59 DC 01/20/20 07:52 100 MLS/HR Daptomycin 660 mg/ Sodium Chloride 50 ml @ 100 mls/hr Q24H 01/21/20 14:00 01/23/20 00:50 100 MLS/HR Dextrose (Dextrose 50%-Water Syringe) 12.5 gm PRN Q15MIN PRN 01/20/20 16:15 Diphtheria/ Tetanus/Acell Pertussis (ADACEL TDap SYRINGE) 0.5 ml ONCE ONCE 01/20/20 08:30 01/20/20 08:31 DC 01/20/20 09:18 0.5 ML Docusate Sodium (Colace) 100 mg PRN DAILY PRN 01/20/20 16:15 Doxycycline Hyclate (Vibra-Tab) 100 mg BID 01/20/20 17:00 01/21/20 13:06 DC 01/21/20 10:16 100 MG Enoxaparin Sodium (Lovenox 60mg Syringe) 60 mg Q12HR 01/20/20 17:00 01/23/20 10:09 60 MG Fentanyl Citrate (Fentanyl 2ml Vial) 50 mcg 1X ONCE 01/20/20 07:45 01/20/20 07:46 DC 01/20/20 07:52 50 MCG Folic Acid (Folic Acid) 1 mg DAILY 01/20/20 22:30 01/23/20 10:09 1 MG Furosemide (Lasix) 40 mg DAILY 01/22/20 09:00 01/22/20 12:03 DC 01/22/20 08:48 40 MG Haloperidol (Haldol) 5 mg DAILY 01/21/20 13:00 01/23/20 10:11 5 MG Info (CONTRAST GIVEN -- Rx MONITORING) 1 each PRN DAILY PRN 01/20/20 06:00 01/22/20 05:59 DC Insulin Human Lispro (HumaLOG) 0-5 UNITS TIDWMEALS 01/20/20 17:00 Iohexol (Omnipaque 300 Mg/ml) 60 ml 1X ONCE 01/20/20 06:00 01/20/20 06:01 DC 01/20/20 06:00 60 ML Lactobacillus Rhamnosus (Culturelle) 1 cap BID 01/21/20 21:00 9/2/20 10:12 1 CAP Lactulose (Lactulose) 20 gm TID 01/21/20 14:00 01/22/20 08:48 20 GM Lidocaine HCl (Lidocaine 1% 20ml Vial) 5 ml 1X ONCE 01/20/20 07:30 01/20/20 07:31 DC 01/20/20 07:53 5 ML Linezolid (Zyvox) 600 mg BID 01/21/20 21:00 01/23/20 10:11 600 MG Lorazepam (Ativan) 2 mg Q6H 01/20/20 22:00 01/22/20 04:01 DC 01/22/20 04:24 2 MG Magnesium Oxide (Magnesium Oxide) 800 mg 1X ONCE 01/20/20 16:45 01/20/20 16:59 DC 01/20/20 17:07 800 MG Magnesium Sulfate 100 ml @ 25 mls/hr 1X ONCE 01/21/20 12:45 01/21/20 16:44 DC 01/21/20 13:03 25 MLS/HR Morphine Sulfate (Morphine Sulfate) 2 mg PRN Q2HR PRN 01/20/20 16:15 01/20/20 19:58 2 MG Multivitamins (Thera M Plus) 1 tab DAILY 01/20/20 22:30 01/23/20 10:11 1 TAB Nicotine (Nicoderm Cq 7mg) 1 patch DAILY 01/20/20 22:00 01/23/20 10:09 1 PATCH Nicotine Polacrilex (Nicorette Gum) 1 each PRN Q1HR PRN 01/20/20 21:15 Ondansetron HCl (Zofran) 4 mg PRN Q6HRS PRN 01/20/20 16:15 Pantoprazole Sodium (Protonix) 40 mg DAILYAC 01/22/20 07:30 01/22/20 15:20 DC Piperacillin Sod/ Tazobactam Sod 2.25 gm/Sodium Chloride 50 ml @ 100 mls/hr Q6HRS 01/21/20 18:00 Cancel Piperacillin Sod/ Tazobactam Sod 3.375 gm/Sodium Chloride 50 ml @ 100 mls/hr Q6HRS 01/21/20 14:00 01/23/20 10:12 100 MLS/HR Potassium Chloride/Water 100 ml @ 100 mls/hr Q1H 01/21/20 12:45 01/21/20 14:44 DC 01/21/20 15:20 100 MLS/HR Potassium Chloride (Klor-Con) 40 meq 1X ONCE 01/22/20 09:00 01/22/20 09:01 DC 01/22/20 09:01 40 MEQ Sennosides (Senna) 17.2 mg PRN BID PRN 01/20/20 16:15 Spironolactone (Aldactone) 50 mg DAILY 01/21/20 13:00 01/23/20 10:11 50 MG Thiamine Mononitrate (Vitamin B-1) 100 mg DAILY 01/20/20 22:30 01/23/20 10:10 100 MG Labs: Lab Laboratory Tests Test 01/22/20 11:44 01/22/20 14:56 01/22/20 21:01 01/23/20 10:07 Glucose (Fingerstick) 95 mg/dL (70-99) 91 mg/dL (70-99) 96 mg/dL (70-99) 85 mg/dL (70-99) Objective: Assessment: 1. Right periorbital cellulitis with lateral jainism abscess, status post drainage in ED. no cultures available No change in size 2. Bilateral lower extremity swelling concerning for congestive heart failure exacerbation. 3. History of cirrhosis. 4. Morbid obesity. 5. Acute kidney injury with underlying chronic kidney disease, improved. 6. Abnormal liver function tests. 7. Hematuria 8. Thrombocytopenia 9. History of schizophrenia Plan: Plan of Care cont daptomycin, Zosyn Consult general surgery for decision and drainage of left mariel-orbital abscess as ophthalmology is not available in-house per nursing team Follow up labs and cultures. Continue local care Continue supportive care. Discussed with nursing staff RAINA PEARL MD Jan 23, 2020 10:26
[2020-01-23 11:29] LABS: CALCIUM 8.8 mg/dL (8.5-10.1); CREATININE 1.6 mg/dL (0.7-1.3); GFR 57.9; MAGNESIUM 1.3 mg/dL (1.8-2.4); POTASSIUM 3.3 mmol/L (3.5-5.1)
[2020-01-23] MEDS ORDERED: POTASSIUM CITRATE 10 MEQ TABLET.ER PO ONE (11:45)
[2020-01-23] MEDS: POTASSIUM CHLORIDE 10MEQ 100 ML IV SCH ×2 (12:00→20:57)
[2020-01-23] MEDS ORDERED: MAGNESIUM SULFATE 4GM 100 ML IV ONE (12:00)
--- NOTE | 2020-01-23 12:35 | PDOC ---
CARDIO Progress Notes Date and Time Date of Service 01/23/20 Time of Evaluation 1234 Subjective Subjective: No Chest Pain, Other (breathing, swelling improved ) Vitals Vitals Vital Signs Date Time Temp Pulse Resp B/P (MAP) Pulse Ox O2 Delivery O2 Flow Rate FiO2 01/23/20 10:10 81 177/106 01/23/20 07:00 98.0 18 Room Air 98.0 01/23/20 03:50 97 Weight Weight [ ] Input and Output Intake and Output Intake and Output 01/23/20 07:00 Intake Total 540 ml Output Total 1800 ml Balance -1260 ml Intake Oral 540 ml Output Urine Total 1800 ml # Bowel Movements 4 Laboratory Labs Laboratory Tests Test 01/22/20 14:56 01/22/20 21:01 01/23/20 10:07 01/23/20 10:55 Glucose (Fingerstick) 91 mg/dL (70-99) 96 mg/dL (70-99) 85 mg/dL (70-99) Sodium Level 133 mmol/L (136-145) Potassium Level 3.3 mmol/L (3.5-5.1) Chloride Level 100 mmol/L (98-107) Carbon Dioxide Level 26 mmol/L (21-32) Anion Gap 7 (6-14) Blood Urea Nitrogen 15 mg/dL (8-26) Creatinine 1.6 mg/dL (0.7-1.3) Estimated GFR (Cockcroft-Gault) 57.9 Glucose Level 136 mg/dL (70-99) Calcium Level 8.8 mg/dL (8.5-10.1) Magnesium Level 1.3 mg/dL (1.8-2.4) Physical Exam HEENT: Neck Supple W Full Motion, Other (right eye periorbital edema ) Chest: Symmetric LUNGS: Other (diminished ) Heart: RRR Abdomen: Soft N/T, Other (obese ) Extremities: Other (1+ bilateral LE edema ) Neurology: alert, oriented, follow commands Assessment Assessment 1. Acute on chronic diastolic HF; LVEF 60%.per recent echo at . Repeat echo with preserved LV systolic function 2. Cirrhosis, coagulopathy, thrombocytopenia 3. H/o chronic alcoholism; denies current use 4. Hypertension; elevated 5. CKD; Cr stable. 6. Anxiety/depression/schizophrenia 7. Morbid obesity 8. Tobaccoism; discussed/encouraged cessation 9. Right supraorbital abscess; s/p I&D 10. Hypokalemia/hypomagnesemia; being replaced Recommendations HF optimization with BB, spironolactone. Resume home Bumex and discontinue Lasix therapy Additional diuresis PRN Am labs; Monitor PLTs, INR Ongoing antibiotic therapy as per ID Supportive care Justicifation of Admission Dx: Justifications for Admission: Justification of Admission Dx: Yes PALOMA SMITH APRN Jan 23, 2020 12:35
--- NOTE | 2020-01-23 13:55 | PDOC ---
SURGICAL PROGRESS NOTE DATE: 01/23/20 TIME: 13:53 Subjective Consult received. Given abscess involving the eye, favor consult with ENT and opthalmology. Favor transfer to where pt apparently receives care. Thanks. Vital Signs Vital Signs Date Time Temp Pulse Resp B/P (MAP) Pulse Ox O2 Delivery O2 Flow Rate FiO2 01/23/20 10:10 81 177/106 01/23/20 08:00 Room Air 01/23/20 07:00 98.0 18 98.0 01/23/20 03:50 97 I&O Intake and Output 01/23/20 07:00 Intake Total 540 ml Output Total 1800 ml Balance -1260 ml Intake Oral 540 ml Output Urine Total 1800 ml # Bowel Movements 4 Labs Laboratory Tests Test 01/21/20 16:55 01/21/20 21:00 01/21/20 21:14 01/22/20 03:30 Glucose (Fingerstick) 111 mg/dL (70-99) 98 mg/dL (70-99) Coronavirus (PCR) Not detected (Not Detected) White Blood Count 6.6 x10^3/uL (4.0-11.0) Red Blood Count 2.96 x10^6/uL (4.30-5.70) Hemoglobin 10.1 g/dL (13.0-17.5) Hematocrit 30.0 % (39.0-53.0) Mean Corpuscular Volume 102 fL (79-100) Mean Corpuscular Hemoglobin 34 pg (25-35) Mean Corpuscular Hemoglobin Concent 34 g/dL (31-37) Red Cell Distribution Width 14.6 % (11.5-14.5) Platelet Count 58 x10^3/uL (140-400) Neutrophils (%) (Auto) 63 % (31-73) Lymphocytes (%) (Auto) 17 % (24-48) Monocytes (%) (Auto) 17 % (0-9) Eosinophils (%) (Auto) 2 % (0-3) Basophils (%) (Auto) 1 % (0-3) Neutrophils # (Auto) 4.2 x10^3/uL (1.8-7.7) Lymphocytes # (Auto) 1.1 x10^3/uL (1.0-4.8) Monocytes # (Auto) 1.1 x10^3/uL (0.0-1.1) Eosinophils # (Auto) 0.1 x10^3/uL (0.0-0.7) Basophils # (Auto) 0.1 x10^3/uL (0.0-0.2) Sodium Level 137 mmol/L (136-145) Potassium Level 3.5 mmol/L (3.5-5.1) Chloride Level 102 mmol/L (98-107) Carbon Dioxide Level 27 mmol/L (21-32) Anion Gap 8 (6-14) Blood Urea Nitrogen 11 mg/dL (8-26) Creatinine 1.3 mg/dL (0.7-1.3) Estimated GFR (Cockcroft-Gault) 73.6 Glucose Level 95 mg/dL (70-99) Calcium Level 8.4 mg/dL (8.5-10.1) Magnesium Level 1.9 mg/dL (1.8-2.4) Test 01/22/20 08:06 01/22/20 11:44 01/22/20 14:56 01/22/20 21:01 Glucose (Fingerstick) 115 mg/dL (70-99) 95 mg/dL (70-99) 91 mg/dL (70-99) 96 mg/dL (70-99) Test 01/23/20 10:07 01/23/20 10:55 01/23/20 12:43 Glucose (Fingerstick) 85 mg/dL (70-99) 83 mg/dL (70-99) Sodium Level 133 mmol/L (136-145) Potassium Level 3.3 mmol/L (3.5-5.1) Chloride Level 100 mmol/L (98-107) Carbon Dioxide Level 26 mmol/L (21-32) Anion Gap 7 (6-14) Blood Urea Nitrogen 15 mg/dL (8-26) Creatinine 1.6 mg/dL (0.7-1.3) Estimated GFR (Cockcroft-Gault) 57.9 Glucose Level 136 mg/dL (70-99) Calcium Level 8.8 mg/dL (8.5-10.1) Magnesium Level 1.3 mg/dL (1.8-2.4) Laboratory Tests Test 01/22/20 14:56 01/22/20 21:01 01/23/20 10:07 01/23/20 10:55 Glucose (Fingerstick) 91 mg/dL (70-99) 96 mg/dL (70-99) 85 mg/dL (70-99) Sodium Level 133 mmol/L (136-145) Potassium Level 3.3 mmol/L (3.5-5.1) Chloride Level 100 mmol/L (98-107) Carbon Dioxide Level 26 mmol/L (21-32) Anion Gap 7 (6-14) Blood Urea Nitrogen 15 mg/dL (8-26) Creatinine 1.6 mg/dL (0.7-1.3) Estimated GFR (Cockcroft-Gault) 57.9 Glucose Level 136 mg/dL (70-99) Calcium Level 8.8 mg/dL (8.5-10.1) Magnesium Level 1.3 mg/dL (1.8-2.4) Test 01/23/20 12:43 Glucose (Fingerstick) 83 mg/dL (70-99) Problem List Problems Medical Problems: (1) Abscess of right periorbital region Status: Acute (2) CKD (chronic kidney disease) Status: Acute (3) Dyspnea Status: Acute (4) Lower extremity edema Status: Acute (5) Macrocytic anemia Status: Acute (6) Preseptal cellulitis of right eye Status: Acute Justicifation of Admission Dx: Justifications for Admission: Justification of Admission Dx: Yes SERGIO GARCÍA MD Jan 23, 2020 13:55
--- NOTE | 2020-01-23 14:38 | CARD ---
MR#: [id number] Date of Study: 01/23/2020 Ordering Physician: LOLIS ANGELES, Referring Physician: LOLIS ANGELES, Tech: Leighann Aguilera LUIZA APPROVED REPORT EXAM: Two-dimensional and M-mode echocardiogram with Doppler and color Doppler. Other Information Quality : Fair INDICATION Dyspnea Congestive Heart Failure 2D DIMENSIONS RVDd3.0 (2.9-3.5cm)Left Atrium(2D)5.0 (1.6-4.0cm) IVSd1.0 (0.7-1.1cm)Aortic Root(2D)2.8 (2.0-3.7cm) LVDd5.7 (3.9-5.9cm)LVOT Diameter2.0 (1.8-2.4cm) PWd0.9 (0.7-1.1cm)LVDs3.1 (2.5-4.0cm) FS (%) 30.0 %LVEF(%)60.0 (>50%) Aortic Valve AoV Peak Andrew.203.0cm/[place] Peak GR.17.0mmHg LVOT VTI 36.00cmAO Mean GR.9mmHg DANA (VMAX)2.58dp6EBF (VTI)2.70cm2 LEFT VENTRICLE The left ventricle is normal size. There is normal left ventricular wall thickness. The left ventricu lar systolic function is normal and the ejection fraction is within normal range. The Ejection Fracti on is 55-60%. There is normal LV segmental wall motion. The left ventricular diastolic function and f illing is normal for age. RIGHT VENTRICLE The right ventricle is normal size. The right ventricular systolic function is normal. ATRIA The left atrium is mildly dilated. The right atrium size is normal. The interatrial septum is intact with no evidence for an atrial septal defect or patent foramen ovale as noted on 2-D or Doppler imagi ng. AORTIC VALVE The aortic valve is calcified but opens well. Doppler and Color Flow revealed no significant aortic r egurgitation. There is no significant aortic valvular stenosis. MITRAL VALVE The mitral valve is normal in structure and function. There is no evidence of mitral valve prolapse. There is no mitral valve stenosis. Doppler and Color Flow revealed no mitral valve regurgitation note d. TRICUSPID VALVE The tricuspid valve is normal in structure and function. Doppler and Color Flow revealed no tricuspid valve regurgitation noted. There is no tricuspid valve stenosis. PULMONIC VALVE The pulmonic valve is not well visualized. Doppler and Color Flow revealed no pulmonic valvular regur gitation. There is no pulmonic valvular stenosis. GREAT VESSELS The aortic root is normal in size. The ascending aorta is not well seen. The IVC is normal in size an d collapses >50% with inspiration. PERICARDIAL EFFUSION There is no evidence of significant pericardial effusion. Critical Notification Critical Value: No <Conclusion> The left ventricle is normal size. The left ventricular systolic function is normal and the ejection fraction is within normal range. The Ejection Fraction is 55-60%. Doppler and Color Flow revealed no significant aortic regurgitation. There is no significant aortic valvular stenosis. Doppler and Color Flow revealed no mitral valve regurgitation noted. Doppler and Color Flow revealed no tricuspid valve regurgitation noted. Signed by : Rajiv Sanchez MD Electronically Approved : 01/23/2020 14:37:35
[2020-01-23 15:00] VITALS: BP 127/64
--- NOTE | 2020-01-23 17:35 | NUR ---
SW following. Spoke with RN and reviewed chart. Pt remains on IV abx and is not ready for discharge today. [facility] to follow Addendum: 01/24/20 at 0956 by SEBASTIÁN GALLO pt transferred to [facility] to follow.
--- NOTE | 2020-01-23 17:52 | NUR ---
Pt being moved to room 201. Report called to nurse. Pt moved by wheelchair.
[2020-01-23 18:05] VITALS: BP 141/83
[2020-01-23 19:29] VITALS: BP 127/73
[2020-01-23] MEDS: NICOTINE POLACRILEX 2MG GUM PACKAGE of 12. BC PRN (20:48)
--- NOTE | 2020-01-23 21:04 | NUR ---
Patient reports three BM today, refuses lactulose at HS
[2020-01-23 22:37] VITALS: BP 126/73
[2020-01-24 03:03] VITALS: BP 138/67
[2020-01-24 04:31] LABS: CALCIUM 8.5 mg/dL (8.5-10.1); CREATININE 1.7 mg/dL (0.7-1.3); MAGNESIUM 1.9 mg/dL (1.8-2.4); POTASSIUM 3.6 mmol/L (3.5-5.1)
[2020-01-24 04:55] LABS: BASO % 1 % (0-3); EOS # 0.2 x10^3/uL (0.0-0.7); EOS % 3 % (0-3); HEMATOCRIT 30.1 % (39.0-53.0); HEMOGLOBIN 10.2 g/dL (13.0-17.5); LYMPH # 1.7 x10^3/uL (1.0-4.8); LYMPH % 28 % (24-48); MEAN CORPUSCULAR HEMOGLOBIN 34 pg (25-35); MEAN CORPUSCULAR HGB CONC 34 g/dL (31-37); MEAN CORPUSCULAR VOLUME 101 fL (79-100); MONO # 1.2 x10^3/uL (0.0-1.1); MONO % 20 % (0-9); NEUT % 49 % (31-73); PLATELET COUNT 61 x10^3/uL (140-400); RED BLOOD COUNT 2.98 x10^6/uL (4.30-5.70); RED CELL DISTRIBUTION WIDTH 15.1 % (11.5-14.5); WHITE BLOOD COUNT 6.1 x10^3/uL (4.0-11.0)
[2020-01-24] MEDS: PIPERACILLIN/TAZOBACTAM 3.375 GM in IV NORMAL SALINE 50ML 50 ML IV SCH ×2 (05:33→12:23)
[2020-01-24 06:13] LABS: % EOS 4 % (0-5); % LYMPHS 26 % (24-48); % MONOS 12 % (0-10); % SEGS 58 % (35-66); PLT ESTIMATE DECREASED (ADEQUATE)
[2020-01-24 06:14] LABS: ANISOCYTOSIS SLIGHT
[2020-01-24 07:00] VITALS: BP 133/76
[2020-01-24] MEDS: INSULIN LISPRO 300 UNITS/3 ML VIAL. SQ SCH (07:34)
[2020-01-24] MEDS: LACTULOSE 20 GM/30 ML SOLUTION. PO SCH ×2 (07:37→12:36)
[2020-01-24] MEDS: BUMETANIDE 1 MG TABLET. PO SCH (08:31)
[2020-01-24] MEDS: SPIRONOLACTONE 25 MG TABLET PO SCH (08:31)
[2020-01-24] MEDS: THIAMINE 100 MG TABLET. PO SCH (08:31)
[2020-01-24] MEDS: buPROPion 100 MG TABLET PO SCH (08:31)
[2020-01-24] MEDS: LACTOBACILLUS RHAMNOSUS GG 1 CAPSULE. PO SCH (08:31)
[2020-01-24] MEDS: MULTIVITAMIN with MINERAL TABLET. PO SCH (08:31)
[2020-01-24] MEDS: FOLIC ACID 1 MG TABLET. PO SCH (08:31)
[2020-01-24] MEDS: PANTOPRAZOLE 40 MG TABLET.DR. PO SCH (08:32)
[2020-01-24] MEDS: CETIRIZINE HCL 10 MG TABLET. PO SCH (08:32)
[2020-01-24] MEDS: HALOPERIDOL 5 MG TABLET. PO SCH (08:32)
[2020-01-24] MEDS: CARVEDILOL 3.125 MG TABLET. PO SCH (08:32)
[2020-01-24] MEDS: NICOTINE 7MG PATCH. TD SCH (08:32)
[2020-01-24] MEDS: NICOTINE POLACRILEX 2MG GUM PACKAGE of 12. BC PRN (08:40)
[2020-01-24] MEDS ORDERED: predniSONE 20 MG TABLET PO SCH (09:00)
--- NOTE | 2020-01-24 09:02 | PDOC ---
Infectious Disease Note Subjective: Subjective Patient says he feels a little better Swelling of the eyelid and face is improving. Is able to open his right eye, visual loss Denies any pain Denies headache, sore throat, cough, fever, nausea, vomiting, shortness of breath, diarrhea, abdominal pain, rash Otherwise as above Vital Signs: Vital Signs Vital Signs Date Time Temp Pulse Resp B/P (MAP) Pulse Ox O2 Delivery O2 Flow Rate FiO2 01/24/20 08:32 72 138/67 01/24/20 07:00 99.6 18 100 Room Air 99.6 Physical Exam: PHYSICAL EXAM GENERAL: Morbidly obese, alert, oriented x 3 male lying in bed comfortably, in no acute distress. HEENT: Right eye swelling improved able to open his eyes, dressing is present over the lateral aspect with packing in place surrounding redness and swelling noted over the right baptism area, improving NECK: Supple. JVD present. LUNGS: Decreased breath sounds, otherwise no bilateral rhonchi, few rales. HEART: S1, S2, no murmurs. ABDOMEN: Obese, soft, bowel sounds present, nontender, nondistended. EXTREMITIES: 1+ pedal edema bilaterally. DERMATOLOGIC: Warm, dry. No generalized rash except for above. NEUROLOGIC: Alert and oriented x 3, grossly nonfocal. PSYCHIATRIC: Calm and cooperative. Medications: Inpatient Meds: Current Medications Medications (Trade) Dose Ordered Sig/Jarrett Start Time Stop Time Status Last Admin Dose Admin Bumetanide (Bumex) 2 mg BID94 01/22/20 16:00 01/24/20 08:31 2 MG Bupropion HCl (Wellbutrin) 100 mg BID 01/21/20 13:00 01/24/20 08:31 100 MG Carvedilol (Coreg) 6.25 mg BIDWMEALS 01/22/20 17:00 01/24/20 08:32 6.25 MG Cetirizine HCl (ZyrTEC) 10 mg DAILY 01/22/20 09:00 01/24/20 08:32 10 MG Clindamycin Phosphate 50 ml @ 100 mls/hr 1X ONCE 01/20/20 07:30 01/20/20 07:59 DC 01/20/20 07:52 100 MLS/HR Daptomycin 660 mg/ Sodium Chloride 50 ml @ 100 mls/hr Q24H 01/21/20 14:00 9/2/20 14:00 100 MLS/HR Dextrose (Dextrose 50%-Water Syringe) 12.5 gm PRN Q15MIN PRN 01/20/20 16:15 Diphtheria/ Tetanus/Acell Pertussis (ADACEL TDap SYRINGE) 0.5 ml ONCE ONCE 01/20/20 08:30 01/20/20 08:31 DC 01/20/20 09:18 0.5 ML Docusate Sodium (Colace) 100 mg PRN DAILY PRN 01/20/20 16:15 Doxycycline Hyclate (Vibra-Tab) 100 mg BID 01/20/20 17:00 01/21/20 13:06 DC 01/21/20 10:16 100 MG Enoxaparin Sodium (Lovenox 60mg Syringe) 60 mg Q12HR 01/20/20 17:00 01/23/20 20:39 60 MG Fentanyl Citrate (Fentanyl 2ml Vial) 50 mcg 1X ONCE 01/20/20 07:45 01/20/20 07:46 DC 01/20/20 07:52 50 MCG Folic Acid (Folic Acid) 1 mg DAILY 01/20/20 22:30 01/24/20 08:31 1 MG Furosemide (Lasix) 40 mg DAILY 01/22/20 09:00 01/22/20 12:03 DC 01/22/20 08:48 40 MG Haloperidol (Haldol) 5 mg DAILY 01/21/20 13:00 01/24/20 08:32 5 MG Info (CONTRAST GIVEN -- Rx MONITORING) 1 each PRN DAILY PRN 01/20/20 06:00 01/22/20 05:59 DC Insulin Human Lispro (HumaLOG) 0-5 UNITS TIDWMEALS 01/20/20 17:00 Iohexol (Omnipaque 300 Mg/ml) 60 ml 1X ONCE 01/20/20 06:00 01/20/20 06:01 DC 01/20/20 06:00 60 ML Lactobacillus Rhamnosus (Culturelle) 1 cap BID 01/21/20 21:00 01/24/20 08:31 1 CAP Lactulose (Lactulose) 20 gm TID 01/21/20 14:00 01/22/20 08:48 20 GM Lidocaine HCl (Lidocaine 1% 20ml Vial) 5 ml 1X ONCE 01/20/20 07:30 01/20/20 07:31 DC 01/20/20 07:53 5 ML Linezolid (Zyvox) 600 mg BID 01/21/20 21:00 01/23/20 12:12 DC 01/23/20 10:11 600 MG Lorazepam (Ativan) 2 mg Q6H 01/20/20 22:00 01/22/20 04:01 DC 01/22/20 04:24 2 MG Magnesium Oxide (Magnesium Oxide) 800 mg 1X ONCE 01/20/20 16:45 01/20/20 16:59 DC 01/20/20 17:07 800 MG Magnesium Sulfate 100 ml @ 25 mls/hr 1X ONCE 01/23/20 12:00 01/23/20 15:59 DC 01/23/20 13:54 25 MLS/HR Morphine Sulfate (Morphine Sulfate) 2 mg PRN Q2HR PRN 01/20/20 16:15 01/20/20 19:58 2 MG Multivitamins (Thera M Plus) 1 tab DAILY 01/20/20 22:30 01/24/20 08:31 1 TAB Nicotine (Nicoderm Cq 7mg) 1 patch DAILY 01/20/20 22:00 01/24/20 08:32 1 PATCH Nicotine Polacrilex (Nicorette Gum) 1 each PRN Q1HR PRN 01/20/20 21:15 01/24/20 08:40 1 EACH Ondansetron HCl (Zofran) 4 mg PRN Q6HRS PRN 01/20/20 16:15 Pantoprazole Sodium (Protonix) 40 mg DAILYAC 01/22/20 07:30 01/22/20 15:20 DC Piperacillin Sod/ Tazobactam Sod 2.25 gm/Sodium Chloride 50 ml @ 100 mls/hr Q6HRS 01/21/20 18:00 Cancel Piperacillin Sod/ Tazobactam Sod 3.375 gm/Sodium Chloride 50 ml @ 100 mls/hr Q6HRS 01/21/20 14:00 01/24/20 05:33 100 MLS/HR Potassium Chloride/Water 100 ml @ 100 mls/hr Q1H 01/23/20 12:00 01/23/20 13:59 DC 01/23/20 20:57 100 MLS/HR Potassium Chloride (Klor-Con) 40 meq 1X ONCE 01/22/20 09:00 01/22/20 09:01 DC 01/22/20 09:01 40 MEQ Potassium Citrate (Urocit-K) 40 meq 1X ONCE 01/23/20 11:45 01/23/20 11:52 DC 01/23/20 12:41 40 MEQ Prednisone (Prednisone) 40 mg DAILY 01/24/20 09:00 01/28/20 09:01 01/24/20 08:34 40 MG Sennosides (Senna) 17.2 mg PRN BID PRN 01/20/20 16:15 Spironolactone (Aldactone) 50 mg DAILY 01/21/20 13:00 01/24/20 08:31 50 MG Thiamine Mononitrate (Vitamin B-1) 100 mg DAILY 01/20/20 22:30 01/24/20 08:31 100 MG Labs: Lab Laboratory Tests Test 01/23/20 10:07 01/23/20 10:55 01/23/20 12:43 01/23/20 17:02 Glucose (Fingerstick) 85 mg/dL (70-99) 83 mg/dL (70-99) 100 mg/dL (70-99) Sodium Level 133 mmol/L (136-145) Potassium Level 3.3 mmol/L (3.5-5.1) Chloride Level 100 mmol/L (98-107) Carbon Dioxide Level 26 mmol/L (21-32) Anion Gap 7 (6-14) Blood Urea Nitrogen 15 mg/dL (8-26) Creatinine 1.6 mg/dL (0.7-1.3) Estimated GFR (Cockcroft-Gault) 57.9 Glucose Level 136 mg/dL (70-99) Calcium Level 8.8 mg/dL (8.5-10.1) Magnesium Level 1.3 mg/dL (1.8-2.4) Test 01/23/20 20:46 01/24/20 03:18 Glucose (Fingerstick) 83 mg/dL (70-99) White Blood Count 6.1 x10^3/uL (4.0-11.0) Red Blood Count 2.98 x10^6/uL (4.30-5.70) Hemoglobin 10.2 g/dL (13.0-17.5) Hematocrit 30.1 % (39.0-53.0) Mean Corpuscular Volume 101 fL (79-100) Mean Corpuscular Hemoglobin 34 pg (25-35) Mean Corpuscular Hemoglobin Concent 34 g/dL (31-37) Red Cell Distribution Width 15.1 % (11.5-14.5) Platelet Count 61 x10^3/uL (140-400) Neutrophils (%) (Auto) 49 % (31-73) Lymphocytes (%) (Auto) 28 % (24-48) Monocytes (%) (Auto) 20 % (0-9) Eosinophils (%) (Auto) 3 % (0-3) Basophils (%) (Auto) 1 % (0-3) Neutrophils # (Auto) 3.0 x10^3/uL (1.8-7.7) Lymphocytes # (Auto) 1.7 x10^3/uL (1.0-4.8) Monocytes # (Auto) 1.2 x10^3/uL (0.0-1.1) Eosinophils # (Auto) 0.2 x10^3/uL (0.0-0.7) Basophils # (Auto) 0.0 x10^3/uL (0.0-0.2) Segmented Neutrophils % 58 % (35-66) Lymphocytes % 26 % (24-48) Monocytes % 12 % (0-10) Eosinophils % 4 % (0-5) Platelet Estimate Decreased (ADEQUATE) Large Platelets Occ Anisocytosis Slight Sodium Level 137 mmol/L (136-145) Potassium Level 3.6 mmol/L (3.5-5.1) Chloride Level 101 mmol/L (98-107) Carbon Dioxide Level 29 mmol/L (21-32) Anion Gap 7 (6-14) Blood Urea Nitrogen 17 mg/dL (8-26) Creatinine 1.7 mg/dL (0.7-1.3) Estimated GFR (Cockcroft-Gault) 54.0 Glucose Level 80 mg/dL (70-99) Calcium Level 8.5 mg/dL (8.5-10.1) Magnesium Level 1.9 mg/dL (1.8-2.4) Objective: Assessment: 1. Right periorbital cellulitis with lateral baptism abscess, status post drainage in ED. no cultures available Improving .Cultures negative 2. Bilateral lower extremity swelling concerning for congestive heart failure exacerbation. 3. History of cirrhosis. 4. Morbid obesity. 5. Acute kidney injury with underlying chronic kidney disease, improved. 6. Abnormal liver function tests. 7. Hematuria 8. Thrombocytopenia 9. History of schizophrenia Plan: Plan of Care Patient is ready for discharge today per primary team Dose daptomycin and Zosyn before discharge General surgery input noted Zyvox for 10 days, agree with Augmentin Social service to assist with Zyvox prescription Local eye care If worse patient needs to seek immediate medical attention at a facility with ophthalmology services available Continue local wound care as directed Discussed with nursing staff RAINA PEARL MD Jan 24, 2020 09:02
[2020-01-24] MEDS ORDERED: ACETAMINOPHEN 325 MG TABLET. PO PRN (10:00)
--- NOTE | 2020-01-24 10:41 | SNU/HH DC ---
DISCHARGE WITH HOME HEALTH DISCHARGE INFORMATION: Final Diagnosis: Problems Medical Problems: (1) Abscess of right periorbital region Status: Acute (2) CKD (chronic kidney disease) Status: Acute (3) Dyspnea Status: Acute (4) Lower extremity edema Status: Acute (5) Macrocytic anemia Status: Acute (6) Preseptal cellulitis of right eye Status: Acute Condition on Discharge: Stable CODE STATUS: Code Status: Full HOME HEALTH: Face to Face: I certify this patient is under my care and that I, or a nurse practitioner or physician's assistant child care teacher working with me, had a face to face encounter that meets the physician face to face encounter requirements with this patient on []. Medical Complications: Other (Recent right eye abscess he needs assistance with dressing changes) Half-Way For: Assess/Skilled Observatio RN For Eval/Treatment: Yes Physical Therapy For: Evalulation/Treatment Occupational Therapy For: Evaluation/Treatment Home Health Aide For: Self-care IMAGING CLERK For: Community Resources Pt Meets Homebound Status: Poor coordination w/ amb. POST DISCHARGE ORDERS: Activity Instructions for Disc: Activity as tolerated Weight Bearing Status after Di: As tolerated DIET AFTER DISCHARGE: Cardiac CHECKS AFTER DISCHARGE: Checks after discharge: Check blood press - daily, Weigh Yourself Daily TREATMENT/EQUIPMENT ORDERS: Adaptive Equipment Issued: None CERTIFICATION STATEMENT: Certification Statement: Certification Statement: Based on the above finding, I certify that this patient is confined to the home and needs intermittent chcf care, physical therapy and/or speech therapy, or continues to need occupational therapy.~ This patient is under my care, and I have initiated the establishment of the plan of care.~ This patient will be followed by myself or a community physician who will periodically review the plan of care. Home Meds Active Scripts Furosemide (FUROSEMIDE) 40 Mg Tablet, 40 MG PO BID92 for 30 Days, #60 TAB Prov:TONI GIORDANO MD 10/11/16 Magnesium Oxide (MAGNESIUM OXIDE) 400 Mg Tablet, 1 TAB PO DAILY, #4 TAB 5 Refills Prov:PHILIP GOLDMAN MD 06/11/16 Reported Medications Carvedilol (Carvedilol) 3.125 Mg Tablet, 1 TAB PO BID for CHF for 30 Days, #60 01/21/20 Lactulose (GENERLAC) 10 Gm/15 Ml Solution, 20 G PO TID for CIrrhosis for 30 Days, #90 01/21/20 Carvedilol (CARVEDILOL ) 3.125 Mg Tablet, 3.125 MG PO BIDWMEALS for CARDIAC, TAB 01/20/20 Folic Acid (FOLIC ACID) 20 Mg Capsule, 1 CAP PO DAILY for supplement for 30 Days, #30 CAP 0 Refills 01/20/20 Cetirizine Hcl (CETIRIZINE HCL) 10 Mg Tablet, 1 TAB PO DAILY for antihistamine, #30 TAB 5 Refills 01/20/20 Potassium Chloride (POTASSIUM CHLORIDE) 8 Meq Capsule.er, 1 CAP PO DAILY for supplement for 30 Days, #30 CAP 0 Refills 01/20/20 Lactulose (LACTULOSE) 20 Gm/30 Ml Solution, 20 GM PO DAILY for Liver disease, MISC 01/20/20 Pravastatin Sodium (PRAVASTATIN SODIUM) 20 Mg Tablet, 20 MG PO DAILY, #90 10/06/16 Bupropion Hcl (WELLBUTRIN) 100 Mg Tablet, PO BID, TAB 08/14/14 Haloperidol (HALOPERIDOL) 2 Mg Tablet, 5 MG PO DAILY 08/14/14 Omeprazole (PRILOSEC) 40 Mg Capsule.dr, 40 MG PO DAILY, CAP 08/14/14 MIKE NOLASCO III DO Jan 24, 2020 10:41
--- NOTE | 2020-01-24 10:46 | PDOC ---
[employer] PROGRESS NOTE Date of Service DOS: DATE: 01/24/20 TIME: 10:40 Chief Complaint Chief Complaint A/P: Right supraorbital abscess - s/p I&D on 01/19 Preseptal/Periorbital cellulitis - on oral doxycycline Chronic diastolic CHF CKD HTN Schizophrenia Morbid obesity Tobacco abuse ETOH abuse Cirrhosis Severe protein calorie malnutrition Hypokalemia Hypomagnesemia History of Present Illness History of Present Illness 01/24/2020 Pt was seen and examined Pt was sitting upright Pt was in NAD Pt was able to blink both eyes Clean, dry dressings present on right supraorbital region Vitals/I&O Vitals/I&O: Vital Signs Date Time Temp Pulse Resp B/P (MAP) Pulse Ox O2 Delivery O2 Flow Rate FiO2 01/24/20 08:32 72 138/67 01/24/20 07:00 99.6 18 100 Room Air 99.6 I & O 01/23/20 01/23/20 01/24/20 15:00 23:00 07:00 Intake Total 680 ml 910 ml 50 ml Output Total 800 ml 1325 ml 925 ml Balance -120 ml -415 ml -875 ml Physical Exam Physical Exam: GENERAL: Morbidly obese, alert, oriented x 3 male lying in bed comfortably, in no acute distress. HEENT: Right eye swelling, complete shut, unable to open to swelling, I could not open due to severe upper and lower eyelid edema. Dressing is present over the lateral aspect with packing in place surrounding redness and swelling noted over the right sikh area going down to the upper cheek. NECK: Supple. JVD present. LUNGS: Decreased breath sounds, otherwise no bilateral rhonchi, few rales. HEART: S1, S2, no murmurs. ABDOMEN: Obese, soft, bowel sounds present, nontender, nondistended. EXTREMITIES: 1+ pedal edema bilaterally. DERMATOLOGIC: Warm, dry. No generalized rash except for above. NEUROLOGIC: Alert and oriented x 3, grossly nonfocal. PSYCHIATRIC: Calm and cooperative. General: Alert Heart: Regular rate Lungs: Clear Abdomen: Normal bowel sounds Extremities: No clubbing Labs Labs: Laboratory Tests Test 01/23/20 10:55 01/23/20 12:43 01/23/20 17:02 01/23/20 20:46 Sodium Level 133 mmol/L (136-145) Potassium Level 3.3 mmol/L (3.5-5.1) Chloride Level 100 mmol/L (98-107) Carbon Dioxide Level 26 mmol/L (21-32) Anion Gap 7 (6-14) Blood Urea Nitrogen 15 mg/dL (8-26) Creatinine 1.6 mg/dL (0.7-1.3) Estimated GFR (Cockcroft-Gault) 57.9 Glucose Level 136 mg/dL (70-99) Calcium Level 8.8 mg/dL (8.5-10.1) Magnesium Level 1.3 mg/dL (1.8-2.4) Glucose (Fingerstick) 83 mg/dL (70-99) 100 mg/dL (70-99) 83 mg/dL (70-99) Test 01/24/20 03:18 White Blood Count 6.1 x10^3/uL (4.0-11.0) Red Blood Count 2.98 x10^6/uL (4.30-5.70) Hemoglobin 10.2 g/dL (13.0-17.5) Hematocrit 30.1 % (39.0-53.0) Mean Corpuscular Volume 101 fL (79-100) Mean Corpuscular Hemoglobin 34 pg (25-35) Mean Corpuscular Hemoglobin Concent 34 g/dL (31-37) Red Cell Distribution Width 15.1 % (11.5-14.5) Platelet Count 61 x10^3/uL (140-400) Neutrophils (%) (Auto) 49 % (31-73) Lymphocytes (%) (Auto) 28 % (24-48) Monocytes (%) (Auto) 20 % (0-9) Eosinophils (%) (Auto) 3 % (0-3) Basophils (%) (Auto) 1 % (0-3) Neutrophils # (Auto) 3.0 x10^3/uL (1.8-7.7) Lymphocytes # (Auto) 1.7 x10^3/uL (1.0-4.8) Monocytes # (Auto) 1.2 x10^3/uL (0.0-1.1) Eosinophils # (Auto) 0.2 x10^3/uL (0.0-0.7) Basophils # (Auto) 0.0 x10^3/uL (0.0-0.2) Segmented Neutrophils % 58 % (35-66) Lymphocytes % 26 % (24-48) Monocytes % 12 % (0-10) Eosinophils % 4 % (0-5) Platelet Estimate Decreased (ADEQUATE) Large Platelets Occ Anisocytosis Slight Sodium Level 137 mmol/L (136-145) Potassium Level 3.6 mmol/L (3.5-5.1) Chloride Level 101 mmol/L (98-107) Carbon Dioxide Level 29 mmol/L (21-32) Anion Gap 7 (6-14) Blood Urea Nitrogen 17 mg/dL (8-26) Creatinine 1.7 mg/dL (0.7-1.3) Estimated GFR (Cockcroft-Gault) 54.0 Glucose Level 80 mg/dL (70-99) Calcium Level 8.5 mg/dL (8.5-10.1) Magnesium Level 1.9 mg/dL (1.8-2.4) Review of Systems Review of Systems: Patient denies weakness. Patient denies nausea. Assessment and Plan Assessmemt and Plan Problems Medical Problems: (1) Abscess of right periorbital region Status: Acute (2) CKD (chronic kidney disease) Status: Acute (3) Dyspnea Status: Acute (4) Lower extremity edema Status: Acute (5) Macrocytic anemia Status: Acute (6) Preseptal cellulitis of right eye Status: Acute Assessment Cellulitis Chronic kidney disease Obesity GERD Plan As per surgery, patient should see nail assembly machine operator at Wound care of abscess I + D site Prescribed PO steroids Prescribed PO ABx Hope to discharge soon Continue home meds DVT prophylaxis Full code PT/OT Comment Review of Relevant I have reviewed the following items maci (where applicable) has been applied. Medications: Current Medications Medications (Trade) Dose Ordered Sig/Jarrett Route PRN Reason Start Time Stop Time Status Last Admin Dose Admin Prednisone (Prednisone) 40 mg DAILY PO 01/24/20 09:00 01/28/20 09:01 01/24/20 08:34 Potassium Citrate (Urocit-K) 40 meq 1X ONCE PO 01/23/20 11:45 01/23/20 11:52 DC 01/23/20 12:41 Potassium Chloride/Water 100 ml @ 100 mls/hr Q1H IV 01/23/20 12:00 01/23/20 13:59 DC 01/23/20 20:57 Magnesium Sulfate 100 ml @ 25 mls/hr 1X ONCE IV 01/23/20 12:00 01/23/20 15:59 DC 01/23/20 13:54 Justifications for Admission Other Justification MIKE NOLASCO III DO Jan 24, 2020 10:46
[2020-01-24 11:00] VITALS: BP 148/96
--- NOTE | 2020-01-24 11:17 | PDOC ---
PALOMA SMITH PATHOLOGY LABORATORY DIRECTOR 01/24/20 1117: CARDIO Progress Notes Date and Time Date of Service 01/24/20 Time of Evaluation 1115 Subjective Subjective: No Chest Pain, No Palpitations, Other (right eye swelling better. Breathing/edema improved.) Vitals Vitals Vital Signs Date Time Temp Pulse Resp B/P (MAP) Pulse Ox O2 Delivery O2 Flow Rate FiO2 01/24/20 08:32 72 138/67 01/24/20 07:00 99.6 18 100 Room Air 99.6 Weight Weight [ ] Input and Output Intake and Output Intake and Output 01/24/20 07:00 Intake Total 1640 ml Output Total 3050 ml Balance -1410 ml Intake Oral 1440 ml IV Total 200 ml Output Urine Total 3050 ml # Voids 1 # Bowel Movements 3 Laboratory Labs Laboratory Tests Test 01/23/20 12:43 01/23/20 17:02 01/23/20 20:46 01/24/20 03:18 Glucose (Fingerstick) 83 mg/dL (70-99) 100 mg/dL (70-99) 83 mg/dL (70-99) White Blood Count 6.1 x10^3/uL (4.0-11.0) Red Blood Count 2.98 x10^6/uL (4.30-5.70) Hemoglobin 10.2 g/dL (13.0-17.5) Hematocrit 30.1 % (39.0-53.0) Mean Corpuscular Volume 101 fL (79-100) Mean Corpuscular Hemoglobin 34 pg (25-35) Mean Corpuscular Hemoglobin Concent 34 g/dL (31-37) Red Cell Distribution Width 15.1 % (11.5-14.5) Platelet Count 61 x10^3/uL (140-400) Neutrophils (%) (Auto) 49 % (31-73) Lymphocytes (%) (Auto) 28 % (24-48) Monocytes (%) (Auto) 20 % (0-9) Eosinophils (%) (Auto) 3 % (0-3) Basophils (%) (Auto) 1 % (0-3) Neutrophils # (Auto) 3.0 x10^3/uL (1.8-7.7) Lymphocytes # (Auto) 1.7 x10^3/uL (1.0-4.8) Monocytes # (Auto) 1.2 x10^3/uL (0.0-1.1) Eosinophils # (Auto) 0.2 x10^3/uL (0.0-0.7) Basophils # (Auto) 0.0 x10^3/uL (0.0-0.2) Segmented Neutrophils % 58 % (35-66) Lymphocytes % 26 % (24-48) Monocytes % 12 % (0-10) Eosinophils % 4 % (0-5) Platelet Estimate Decreased (ADEQUATE) Large Platelets Occ Anisocytosis Slight Sodium Level 137 mmol/L (136-145) Potassium Level 3.6 mmol/L (3.5-5.1) Chloride Level 101 mmol/L (98-107) Carbon Dioxide Level 29 mmol/L (21-32) Anion Gap 7 (6-14) Blood Urea Nitrogen 17 mg/dL (8-26) Creatinine 1.7 mg/dL (0.7-1.3) Estimated GFR (Cockcroft-Gault) 54.0 Glucose Level 80 mg/dL (70-99) Calcium Level 8.5 mg/dL (8.5-10.1) Magnesium Level 1.9 mg/dL (1.8-2.4) Physical Exam HEENT: Neck Supple W Full Motion, Other (right eye periorbital edema ) Chest: Symmetric LUNGS: Other (diminished ) Heart: RRR Abdomen: Soft N/T, Other (obese ) Extremities: Other (1+ bilateral LE edema ) Neurology: alert, oriented, follow commands Assessment Assessment 1. Acute on chronic diastolic HF; LVEF 60%.per recent echo at . Repeat echo with preserved LV systolic function. Better compensated with diuresis 2. Cirrhosis, coagulopathy, thrombocytopenia 3. H/o chronic alcoholism; denies current use 4. Hypertension; elevated 5. CKD; Cr ^ 1.7 6. Anxiety/depression/schizophrenia 7. Morbid obesity 8. Tobaccoism; discussed/encouraged cessation 9. Right supraorbital abscess; s/p I&D Recommendations Oral diuretics; will decrease Bumex to 1mg BID and aldactone to 25mg due to worsening renal function Ongoing antibiotic therapy as per ID Supportive care Follow up with HF clinic as discussed with patient Justicifation of Admission Dx: Justifications for Admission: Justification of Admission Dx: Yes HUAN KELLER MD 01/24/20 1501: CARDIO Progress Notes Plan Plan The patient was seen and interviewed as well as examined at the bedside. The chart was reviewed. The case was discussed. Agree with the plan of care. PALOMA SMITH APRN Jan 24, 2020 11:17 HUAN KELLER MD Jan 24, 2020 15:01
--- NOTE | 2020-01-24 12:16 | NUR ---
SS following up with discharge planning. SS reviewed pt chart and discussed with pt RN. Pt is currently on room air. PT recommended home. Pt has script for PO augmenting and Zyvox. Script for Zyvox faxed to [facility] [address]. SS was informed that there is a $0 co-pay for the Zyvox. Discharge orders for home healthcare received. SS met with pt and discussed discharge planning and home healthcare. Pt reported that he will be staying at his mother's home at [address] [place] [address] [address] [facility], [place] [address]. He reported that [facility] comes and assists him three hours per day. Pt agreeable to home healthcare with no preference of company. Referral and discharge orders sent to [facility], ; fax [phone]. Pt's RN notified.
[2020-01-24] MEDS ORDERED: BUME1TAB3 PO ×2 (13:30→14:04)
[2020-01-24] MEDS ORDERED: POTA20TA4 PO (13:30)
[2020-01-24] MEDS ORDERED: SPIR25TA PO ×2 (13:30→14:04)
[2020-01-24] MEDS ORDERED: CARV3.1210 PO (13:30)
[2020-01-24] MEDS: DAPTOMYCIN IV SCH (14:00)
[2020-01-24] MEDS: NORMAL SALINE IV SCH (14:00)
--- NOTE | 2020-01-24 15:30 | NUR ---
Discharge Note: TEO BIGGS Discharge instructions and discharge home medications reviewed with Patient and a copy given. All questions have been answered and understanding verbalized. The following instructions and handouts were given: cellulitis Discontinued lines and drains: Mid-line intact. Patient discharged to Home w/services with Family Member via [facility]
--- NOTE | 2020-01-27 10:51 | DS ---
DATE OF DISCHARGE: 01/24/2020 ADMISSION DIAGNOSES: Periorbital cellulitis, lower extremity swelling secondary to heart failure, alcoholic cirrhosis, hyperlipidemia, hypertension, obesity, gastroesophageal reflux disease and malnutrition. DISCHARGE DIAGNOSIS: Postoperative incision and drainage of the right eye abscess. HOSPITAL COURSE: The patient is a pleasant middle-aged male, who presented with right eye swelling. He has an abscess. It was incision and drained. We also treated him for his comorbidities, please see above. We consulted Infectious Disease and Cardiology. Over the next few days, he returned to his baseline. We discharged to home on p.o. antibiotics. DISPOSITION: Home. ACTIVITY: As tolerated. DIET: Low sodium. MEDICATIONS: Please see the MRAD. TOTAL TIME: 33 minutes. MIKE NOLASCO DO DR: MEY/svitlana JOB#: [id number] / [id number]
== END 2020-01-24 16:06 | disposition home health service (06) | DRG 602 ==
LOC: ER 04:34 → ED HOLD 08:02 → 6 SOUTH 10:08 → 2 NORTH 01-23 18:05
PROVIDERS: ADMIT Internal Medicine; ATTEND Internal Medicine
PROC: 0H91XZZ Drainage of Face Skin, External Approach (ICD-10-PCS; principal; 2020-01-20)
DX: L03.213 Periorbital cellulitis (principal); E43 Unspecified severe protein-calorie malnutrition; I50.33 Acute on chronic diastolic (congestive) heart failure; N17.9 Acute kidney failure, unspecified; D68.9 Coagulation defect, unspecified; I13.0 Hypertensive heart and chronic kidney disease with heart failure and stage 1 through stage 4 chronic kidney disease, or unspecified chronic kidney disease; Z68.43 Body mass index [BMI] 50.0-59.9, adult; Z20.828 Contact with and (suspected) exposure to other viral communicable diseases; N50.89 Other specified disorders of the male genital organs; N18.9 Chronic kidney disease, unspecified; K70.30 Alcoholic cirrhosis of liver without ascites; K21.9 Gastro-esophageal reflux disease without esophagitis; F32.9 Major depressive disorder, single episode, unspecified; F20.9 Schizophrenia, unspecified; F41.9 Anxiety disorder, unspecified; F17.200 Nicotine dependence, unspecified, uncomplicated; F10.10 Alcohol abuse, uncomplicated; E83.42 Hypomagnesemia; E78.5 Hyperlipidemia, unspecified; E87.6 Hypokalemia; E78.00 Pure hypercholesterolemia, unspecified; E66.01 Morbid (severe) obesity due to excess calories; D69.6 Thrombocytopenia, unspecified; D53.9 Nutritional anemia, unspecified; R31.9 Hematuria, unspecified; R16.1 Splenomegaly, not elsewhere classified; Z88.6 Allergy status to analgesic agent; Z91.013 Allergy to seafood; Z79.899 Other long term (current) drug therapy
CPT/HCPCS: 10060; 36415; 36569; 70460; 71045; 76700; 80048; 80053; 81001; 82962; 83690; 83735; 83880; 84100; 84484; 85007; 85025; 85610; 90471; 90715; 93005; 93306; 96365; 96375; 99285; J0878; J1650; J1815; J1940; J2270; J2543; J3010; J3475; J3480; J3490; J7512; Q9967; 97116-GP; 97530-GP; G0378; U0003-CS